=== PATIENT | female | born 1950 | race Caucasian/White ===

== ENCOUNTER 2020-02-26 13:11 | Outpatient (REF) | payer MEDICARE, SELFPAY ==
--- NOTE | 2020-02-26 | MM_ITS ---
EXAMINATION: MM SCREENING DIGITAL BREAST TOMOSYNTHESIS, BILATERAL CLINICAL INFORMATION: Screening. Asymptomatic. The lifetime risk of breast cancer based on the Tyrer-Cuzick Model is 6%. COMPARISON: Mammography: 08/29/2018, 07/25/2017, 06/21/2016 TECHNIQUE: Digital breast tomosynthesis is performed in both the craniocaudal and mediolateral oblique views along with computer-aided detection (CAD). Synthesized 2D images are generated from the tomosynthesis. Additional left MLO view is provided. FINDINGS: There are scattered areas of fibroglandular density (ACR BI-RADS breast composition Category b). There are no significant masses, abnormal calcifications, or other abnormalities. The axilla and skin contours are unremarkable. MM/MM tomosynthesis screening BI IMPRESSION: No significant changes from prior studies. ASSESSMENT: BI-RADS 1: Negative RECOMMENDATION: Routine annual mammography screening. This patient's information was entered into a reminder system with a target due date for their next mammogram.
== END 2020-02-26 13:12 | disposition home or self-care (01) ==
LOC: HO.MAMMO 13:11
PROVIDERS: PCP Nurse Practitioner Family; Visit Provider Nurse Practitioner Family
DX: Z12.31 Encounter for screening mammogram for malignant neoplasm of breast (principal)
CPT/HCPCS: 77063; 77067

== ENCOUNTER 2021-03-08 13:30 | Outpatient (REF) | payer MEDICARE, SELFPAY ==
--- NOTE | ~2021-03-08 | MM_ITS ---
EXAMINATION: MM SCREENING DIGITAL BREAST TOMOSYNTHESIS, BILATERAL CLINICAL INFORMATION: Screening. Asymptomatic. The lifetime risk of breast cancer based on the Tyrer-Cuzick Model is 6%. COMPARISON: Mammography: 02/26/2020, 08/29/2018, 07/25/2017 TECHNIQUE: Digital breast tomosynthesis is performed in both the craniocaudal and mediolateral oblique views along with computer-aided detection (CAD). Synthesized 2D images are generated from the tomosynthesis. Additional left CC view is provided. FINDINGS: There are scattered areas of fibroglandular density (ACR BI-RADS breast composition Category b). There are no significant masses, abnormal calcifications, or other abnormalities. Parenchymal pattern is similar to prior studies. No developing density. No significant changes. MM/MM tomosynthesis screening BI IMPRESSION: No mammographic evidence of malignancy. ASSESSMENT: BI-RADS 1: Negative RECOMMENDATION: Routine annual mammography screening. This patient's information was entered into a reminder system with a target due date for their next mammogram.
--- NOTE | ~2021-03-08 | MM_ITS ---
EXAMINATION: BONE DENSITOMETRY CLINICAL INDICATION: Osteopenia. COMPARISON: Previous BD dated 08/29/2018 and baseline BD dated 04/04/2005. TECHNIQUE: Using a [employer] DXA System (software version: 13.1) manufactured by [employer], dual-energy x-ray absorptiometry was performed of the lumbar spine and left hip. The images are of good technical quality. Summary results are attached. FINDINGS: AP SPINE L1-L4: Current: BMD 1.002 g/cm2, Z-score -0.1, T-score -1.5, osteopenia, 2.3% increase from previous, 3.4% increase from baseline (<5% change is not significant). Prior: BMD 0.979 g/cm2. Baseline: BMD 0.969 g/cm2. LEFT FEMUR, NECK: Current: BMD 0.708 g/cm2, Z-score -0.8, T-score -2.4, osteopenia. Prior: BMD 0.729 g/cm2. Baseline: BMD 0.834 g/cm2. LEFT FEMUR, TOTAL: Current: BMD 0.936 g/cm2, Z-score 0.7, T-score -0.6, normal, 3.7% decrease from previous, 4.9% decrease from baseline (<5% change is not significant). Prior: BMD 0.972 g/cm2. Baseline: BMD 0.984 g/cm2. IDENTIFIED RISK FACTORS: Height loss, menopause, bilateral oophorectomy. HISTORY OF FRACTURE: None listed. MEDICATIONS: Calcium supplements or multivitamin, vitamin D. MM/XR DEXA axial skeleton IMPRESSION: 1. DIAGNOSIS: Osteopenia based on the lowest T-score value of -2.4 in the femoral neck applying World Health Organization criteria. 2. 10-YEAR FRACTURE RISK PREDICTION, FRAX: Major osteoporotic fracture (clinical spine, forearm, hip or shoulder) 14.0%. Hip fracture 3.5%. 3. Treatment Recommendations: NOF guidelines recommend consideration for treatment in postmenopausal women and men age 50 and older presenting with the following: -A hip or vertebral (clinical or morphometric) fracture. -T-score less than or equal to -2.5 at the femoral neck or spine after appropriate evaluation to exclude secondary causes. -Low bone mass at the hip or spine and a 10-year fracture probability by FRAX of greater than or equal to 3% for hip fracture or greater than or equal to 20% for major osteoporotic fracture based on the [place] adapted WHO algorithm. 4. Other Recommendations: All treatment decisions require clinical judgment and consideration of individual patient factors, including patient preferences, comorbidities, previous drug use, risk factors not captured in the FRAX model (e.g. frailty, falls, vitamin D deficiency, increased bone turnover, interval significant decline in bone density) and possible under or overestimation of fracture risk by FRAX. Additional medical evaluation for secondary cause of low bone mineral density may be appropriate. FUTURE SCAN RECOMMENDATION: People with diagnosed cases of osteoporosis or at high risk for fracture should have regular bone mineral density tests. For patients eligible for Medicare, routine testing is allowed once every 2 years. The testing frequency can be increased to one year for patients who have rapidly progressing disease, those who are receiving or discontinuing medical therapy to restore bone mass, or have additional risk factors.
== END 2021-03-08 13:31 | disposition home or self-care (01) ==
LOC: HO.MAMMO 13:30
PROVIDERS: Visit Provider Nurse Practitioner Family
DX: Z12.31 Encounter for screening mammogram for malignant neoplasm of breast (principal); Z13.820 Encounter for screening for osteoporosis; Z78.0 Asymptomatic menopausal state; M85.80 Other specified disorders of bone density and structure, unspecified site; Z90.722 Acquired absence of ovaries, bilateral; Z79.899 Other long term (current) drug therapy
CPT/HCPCS: 77063; 77067; 77080

== ENCOUNTER 2021-05-11 14:03 | Emergency (ER) | payer MEDICARE, SELFPAY ==
--- NOTE | ~2021-05-11 | CT_ITS ---
EXAMINATION: CT ANGIOGRAM OF THE CHEST WITH AND WITHOUT CONTRAST (CT PULMONARY ANGIOGRAM FOR PE) CLINICAL INFORMATION: Reason for Exam + dimer, sob COMPARISON: None TECHNIQUE: Prior to contrast administration, noncontrast localization images were obtained. Subsequently, multidetector volumetric imaging was performed from the thoracic inlet to below the diaphragms following the administration of 80 mL Omnipaque 350 intravenous contrast. No contrast reaction reported Sagittal, coronal, and MIP oblique sagittal reformatted images were obtained on the CT workstation, uploaded to PACS, and reviewed. This CT examination was performed using dose optimization techniques as appropriate, variously including the following: *Automated exposure control *Adjustment of mA and/or kV according to patient size (this includes techniques or standardized protocols for targeted exams where dose is matched to indication/reason for exam; i.e. extremities or head) *Use of iterative reconstruction technique Total exam dose-length product 324 mGy-cm FINDINGS: QUALITY OF STUDY/CONTRAST BOLUS: Satisfactory. PULMONARY ARTERIES: No central or segmental pulmonary emboli. THORACIC AORTA: No aneurysm or dissection. LUNG: The lungs are well-expanded with right lower lobe consolidation/atelectasis. There is bandlike atelectasis left lung base. Rest of the lungs are clear. There is a soft tissue debris seen in the posterior segment of right lower lobe on axial image 29/5 and sagittal image 71/9. PLEURA: No pleural effusion or pneumothorax. MEDIASTINUM: The heart size is expanded and clear. The central trachea and bronchi are widely patent. There is a small hiatal hernia no abnormal size mediastinal or hilar lymph nodes seen. No evidence of septal bowing or right heart strain. CHEST WALL/AXILLA: No axillary or internal mammary lymphadenopathy. OSSEOUS STRUCTURES: There are degenerative disc changes mid dorsal spine with ventral spondylosis mid dorsal spine. UPPER ABDOMEN: The liver is attenuated without any focal lesion or intrahepatic ductal dilatation. Visualized spleen, pancreas and bilateral adrenal glands are unremarkable. Gallbladder is not visualized. No reflux of contrast into the hepatic veins to suggest elevated right heart pressures. CT/CT angio chest PE protocol IMPRESSION: No evidence of PE. No evidence of aortic dissection or aneurysm. Right lower lobe consolidation/atelectasis and a bandlike atelectasis left lung base. There is moderate soft tissue debris seen in the posterior basal segment right lower lobe. This could be secondary to aspiration. Correlate clinically. Mild thickening GE junction/small hiatal hernia. VTE: negative
--- NOTE | ~2021-05-11 | XR_ITS ---
EXAMINATION: XR CHEST CLINICAL INFORMATION: Shortness of breath COMPARISON: July 23, 2006 TECHNIQUE: PA view of the chest was obtained. FINDINGS: There is some discoid disease seen at both lung bases consistent with scarring or atelectasis. There is also noted to be some hazy density at the left lung base which may be related to airspace disease or small effusion. The cardiopericardial silhouette is mildly enlarged. No evidence of pulmonary edema. No pneumothorax. XR/XR chest 1V IMPRESSION: Bibasilar discoid disease consistent with atelectasis or scarring. Question airspace disease with small effusion left base.
[2021-05-11 15:53] VITALS: BP 137/66; PULSE 88; RESP 18; TEMP 36.7; O2SAT 93; BMI 31.1
[2021-05-11 16:29] LABS: MANUAL DIFF FLAG NO
[2021-05-11 16:32] LABS: Basophils Absolute Auto 0.1 X10*3/uL (0.0-0.2); Basophils Percent Auto 0.7 % (0-2); Eosinophils Absolute Auto 0.2 X10*3/uL (0.0-0.4); Eosinophils Percent Auto 1.9 % (0-4); Hematocrit 38.6 % (37.0-47.0); Hemoglobin 12.7 g/dl (12.0-16.0); Imm Gran Abs Auto 0.03 X10*3/uL (0.00-0.03); Imm Gran Pct Auto 0.3 % (0.0-0.4); Lymphocytes Absolute Auto 2.5 X10*3/uL (1.2-4.9); Lymphocytes Percent Auto 28.4 % (20-40); Mean Corpuscular HGB Conc 32.9 g/dl (31.0-35.0); Mean Corpuscular Volume 85.2 fL (80.0-98.0); Mean Platelet Volume 9.7 fL (9.4-12.3); Monocytes Absolute Auto 0.9 X10*3/uL (0.1-1.2); Monocytes Percent Auto 10.3 % (2-11); Neutrophils Absolute Auto 5.2 x10*3/uL (2.0-8.3); Neutrophils Percent Auto 58.4 % (45-73); Platelet Count 361 X10*3/uL (160-400); Red Blood Count 4.53 X10*6/uL (4.20-5.50); Red Cell Distribution Width 15.1 % (11.0-16.0)
[2021-05-11 16:45] LABS: Anion Gap 15 (12-20); Blood Urea Nitrogen 14 mg/dL (9-16); Calcium 9.7 mg/dL (8.4-10.2); Carbon Dioxide 23 mmol/L (22-29); Chloride 106 mmol/L (96-108); Creatinine Clr Calc Pharmacy 58.2; Estimated Glomerular Filt Rate > 60; Glucose Random 88 mg/dL (60-115); Potassium 3.5 mmol/L (3.3-5.1); Sodium 140 mmol/L (135-145)
[2021-05-11 16:51] LABS: B Type Natriuretic Peptide 28 pg/mL (<100)
--- NOTE | 2021-05-11 18:04 | ED_ITS ---
HPI - Asthma General Chief Complaint: Asthma Stated Complaint: coughing/wheezing/SOB Time Seen by Provider: 05/11/21 18:04 Source: patient Mode of arrival: ambulatory Limitations: no limitations History of Present Illness HPI Narrative: 70-year-old female past medical history significant for asthma, HTN, HLD presmarc ting to the emergency department with shortness of breath, productive cough and wheezing times 1 week. Patient tells me that these symptoms have been lingering over the past week however she now notes that she is coughing up yellow/6 sputum. She tells me she feels short of breath particularly with exertion. She also reports wheezing. She tells me she has tried her inhaler, and treatments at home with little to no relief. She reports subjective fevers and chills however has not taken her temperature. She denies chest pain, nausea, vomiting, abdominal pain, calf pain, leg swelling, weakness, headache, dizziness, lethargy. MD complaint: asthma attack , shortness of breath and wheezing Onset (ago): week(s) (1) Severity: moderate Context: none known Associated symptoms: productive cough Treatments Prior to Arrival: inhaled bronchodilator Related Data Previous Rx's Medication Instructions Recorded albuterol sulfate 90 mcg/actuation 2 inh INHALATION Q4-6H PRN #1 ea 05/11/21 breath activated powder inhaler amoxicillin 875 mg-potassium 1 tab PO BID 7 Days #14 tab 05/11/21 clavulanate 125 mg tablet azithromycin 250 mg tablet See Rx Instructions .ROUTE 05/11/21 .COMPLEX #6 tab prednisone 20 mg tablet 20 mg PO DAILY 5 Days #5 tab 05/11/21 Allergies Allergy/AdvReac Type Severity Reaction Status Date / Time codeine Allergy Intermediate Unconscious Verified 05/11/21 15:53 Review of Systems Review of Systems: Constitutional : No Weight loss, + Fever, + Chills, + Fatigue, + Malaise ENT/Mouth : No sore throat, No Rhinorrhea Eyes: No Eye Pain, No Swelling, No Redness Cardiovascular : No Chest Pain, + SOB, No Dyspnea on Exertion, No Orthopnea, No Edema, No Palpitations Respiratory : + Cough, + Sputum, No Wheezing Gastrointestinal : No Nausea, No Vomiting, No Diarrhea, No Constipation, No abdominal Pain, No Hematochezia, No Melena Genitourinary : No Dysuria, No Urinary Frequency, No Hematuria, Musculoskeletal : No joint pain, No Myalgias, No Joint Swelling Skin : No Skin Lesions, No rash Neuro : No Weakness, No Numbness, No Dizziness, No Headache Psych : No Anxiety/Panic, No Depression All other systems reviewed and are negative Yes all other systems are reviewed and are negative [facility] Past Medical History Attestation statement: The following information was validated with the patient. Source: old records reviewed and nursing notes reviewed Medical History (Updated 05/11/21 @ 20:59 by GRACE Hill) Asthma HLD (hyperlipidemia) HTN (hypertension) Social History Social History Advance Directives: No Advance Directives Information Provided: No Physical Exam Vital Signs: Vital Signs: Last Vital Signs Temp 98 F 05/11/21 18:21 Pulse 93 05/11/21 18:49 Resp 18 05/11/21 18:49 BP 138/80 05/11/21 18:21 Pulse Ox 93 05/11/21 18:21 BMI result Body Mass Index 31.1 Vital signs are stable however patient's O2 saturation noted to be in the lower end. Appearance: Alert.? Oriented X3.? No acute distress.? Head: Normocephalic, atraumatic, no step-offs or deformities Eyes: Pupils equal, round and reactive to light.? ENT: Pharynx normal.? Neck: Normal inspection.? Neck supple.? CVS: Normal heart rate and rhythm.? Pulses normal.? Respiratory: No respiratory distress.? Diminished breath sounds throughout, faint crackles to the right lower lobe. Abdomen: Soft and nontender.? Skin: Skin warm and dry.? Normal skin color.? Normal skin turgor.? Extremities: No lower extremity edema.? No calf ttp, negative patrick b/l. 5/5 strength to bilateral upper and lower extremities Back: No midline tenderness, no C-spine tenderness, full range of motion, no CVA tenderness bilaterally Neuro: Oriented X 3.? No motor deficit.? No sensory deficit. CN 2-12 intact Course Reevaluation(s) Reevaluation #1: CBC within normal limits. Chemistry with no acute electrolyte abnormalities. BNP within normal limits. Unlikely that this is CHF. Chest x-ray significant for bibasilar discoid disease consistent with atelectasis or scarring. And a question airspace disease with small effusion in the left base. Dimer pending. Time: 18:07 Reevaluation #2: D-dimer slightly elevated. CTA ordered to rule out PE. Time: 19:51 Reevaluation #3: Will treat patient for bacterial bronchitis and aspiration pneumonia based off of CTA results. She will be discharged home on antibiotics, steroids and with an inhaler. Advised her to return with new or worsening symptoms outlined he is under discharge. Encouraged PCP follow-up. Time: 19:52 MDM - Asthma MDM Narrative Medical decision making narrative: 1805 70 yo f pmhx asthma presents w/ sob, productive cough, wheezing X1 week PE with diminished breath sounds bilaterally, and faint crackles to the right lower lobe. Regular rate and rhythm. Negative Homans sign. Abdomen soft nontender nondistended. Neuro nonfocal. Vital signs stable however patient's O2 sat noted to be 93%. Plan imaging, labs, D-dimer. Will rule out CHF, PE, pneumonia. Medical Records Attestation: I reviewed the patient's medical records. Lab Data Attestation: I reviewed the patient's lab results. Result diagrams: 05/11/21 16:26 05/11/21 16:26 Labs: Lab Results 05/11/21 05/11/21 05/11/21 Range/Units 16:26 16:26 16:26 WBC 9.0 (4.8-10.8) X10*3/uL RBC 4.53 (4.20-5.50) X10*6/uL Hgb 12.7 (12.0-16.0) g/dl Hct 38.6 (37.0-47.0) % MCV 85.2 (80.0-98.0) fL MCH 28.0 (27.0-33.0) pg MCHC 32.9 (31.0-35.0) g/dl RDW 15.1 (11.0-16.0) % Plt Count 361 (160-400) X10*3/uL MPV 9.7 (9.4-12.3) fL Immature Gran % (Auto) 0.3 (0.0-0.4) % Neut % (Auto) 58.4 (45-73) % Lymph % (Auto) 28.4 (20-40) % Esmeralda % (Auto) 10.3 (2-11) % Eos % (Auto) 1.9 (0-4) % Baso % (Auto) 0.7 (0-2) % Lymph # (Auto) 2.5 (1.2-4.9) X10*3/uL Esmeralda # (Auto) 0.9 (0.1-1.2) X10*3/uL Eos # (Auto) 0.2 (0.0-0.4) X10*3/uL Baso # (Auto) 0.1 (0.0-0.2) X10*3/uL Abs Immat Gran (auto) 0.03 (0.00-0.03) X10*3/uL Absolute Neuts (auto) 5.2 (2.0-8.3) x10*3/uL Absolute Nucleated RBC 0.000 (0.0-0.012) X10*3/uL Nucleated RBC % (auto) 0.0 (0.0-0.2) /100WBC D-Dimer High Sensitivty NG/ML Sodium 140 (135-145) mmol/L Potassium 3.5 (3.3-5.1) mmol/L Chloride 106 (96-108) mmol/L Carbon Dioxide 23 (22-29) mmol/L Anion Gap 15 (12-20) BUN 14 (9-16) mg/dL Creatinine 0.82 (0.5-1.4) mg/dL Estim Creat Clear Calc 58.2 Estimated GFR > 60 Random Glucose 88 (60-115) mg/dL Calcium 9.7 (8.4-10.2) mg/dL B-Natriuretic Peptide 28 (<100) pg/mL COVID-19 ([facility]) (Negative) COVID-19 Clin Com 05/11/21 05/11/21 Range/Units 18:24 18:24 WBC (4.8-10.8) X10*3/uL RBC (4.20-5.50) X10*6/uL Hgb (12.0-16.0) g/dl Hct (37.0-47.0) % MCV (80.0-98.0) fL MCH (27.0-33.0) pg MCHC (31.0-35.0) g/dl RDW (11.0-16.0) % Plt Count (160-400) X10*3/uL MPV (9.4-12.3) fL Immature Gran % (Auto) (0.0-0.4) % Neut % (Auto) (45-73) % Lymph % (Auto) (20-40) % Esmeralda % (Auto) (2-11) % Eos % (Auto) (0-4) % Baso % (Auto) (0-2) % Lymph # (Auto) (1.2-4.9) X10*3/uL Esmeralda # (Auto) (0.1-1.2) X10*3/uL Eos # (Auto) (0.0-0.4) X10*3/uL Baso # (Auto) (0.0-0.2) X10*3/uL Abs Immat Gran (auto) (0.00-0.03) X10*3/uL Absolute Neuts (auto) (2.0-8.3) x10*3/uL Absolute Nucleated RBC (0.0-0.012) X10*3/uL Nucleated RBC % (auto) (0.0-0.2) /100WBC D-Dimer High Sensitivty 241 NG/ML Sodium (135-145) mmol/L Potassium (3.3-5.1) mmol/L Chloride (96-108) mmol/L Carbon Dioxide (22-29) mmol/L Anion Gap (12-20) BUN (9-16) mg/dL Creatinine (0.5-1.4) mg/dL Estim Creat Clear Calc Estimated GFR Random Glucose (60-115) mg/dL Calcium (8.4-10.2) mg/dL B-Natriuretic Peptide (<100) pg/mL COVID-19 ([facility]) Negative (Negative) COVID-19 Clin Com See Note Critical Care Time Critical Care Time Critical Care Time: No Discharge Plan Discharge Clinical Impression: Acute bronchitis, Aspiration pneumonia Patient Disposition: Home, Self-Care Instructions: Acute Bronchitis (ED) Additional Instructions: Take your medications as prescribed. If you were prescribed antibiotics today, it is important that you take your medication to their entirety, do not skip any doses, do not finish them early. Follow-up with your primary care provider this week. Return to the emergency department with new or worsening symptoms. She is fevers, chills, chest pain, shortness of breath, nausea, vomiting, weakness, headache, dizziness, fatigue. In case of emergency call 911 Prescriptions: New azithromycin 250 mg tablet See Rx Instructions .ROUTE .COMPLEX Qty: 6 0RF Rx Instructions: For 250 mg dose pack: take 500 mg today (day 1), then 250 mg for 4 days (days 2-5) prednisone 20 mg tablet 20 mg PO DAILY 5 Days Qty: 5 0RF albuterol sulfate 90 mcg/actuation aerosol powdr breath activated 2 inh inhalation Q4-6H PRN (Reason: shortness of breath) Qty: 1 0RF amoxicillin-pot clavulanate 875-125 mg tablet 1 tab PO BID 7 Days Qty: 14 0RF Referrals: Nani Ling NP [Primary Care Provider] - 2 days Stand Alone Forms: Work/School Release
[2021-05-11 18:21] VITALS: BP 138/80; PULSE 88; RESP 16; TEMP 36.6; O2SAT 93
[2021-05-11 18:46] LABS: COVID-19 Test Negative (Negative)
[2021-05-11] MEDS: Albuterol/Iprat 2.5/0.5MG 3 ML AMPUL.NEB INHALE (18:46)
[2021-05-11 18:49] VITALS: PULSE 93; RESP 18; O2SAT 97
[2021-05-11 18:52] LABS: D Dimer High Sensitivity 241 NG/ML
--- NOTE | 2021-05-11 19:19 | PC.NURSE ---
IV placed by GRACE Cartagena to [facility]. Pt off to CT @ this time.
[2021-05-11] MEDS: iohexoL 350 MG/ML 100 ML INFUS..BTL IV (19:31)
--- NOTE | 2021-05-11 19:32 | PC.NURSE ---
Pt returns from CT at this time.
== END 2021-05-11 21:13 | disposition home or self-care (01) ==
PROVIDERS: Physician Assistant; Emergency Provider Emergency Medicine; PCP Nurse Practitioner Family
DX: J20.9 Acute bronchitis, unspecified (principal); J69.0 Pneumonitis due to inhalation of food and vomit; R06.02 Shortness of breath; Z20.822 Contact with and (suspected) exposure to COVID-19; I10 Essential (primary) hypertension; E78.5 Hyperlipidemia, unspecified; Z79.899 Other long term (current) drug therapy
CPT/HCPCS: 36415; 71045; 71275; 80048; 83880; 85025; 85379; 87635; 94640; 99283; 99284; Q9967

== ENCOUNTER 2021-07-01 18:35 | Emergency (ER) | payer MEDICARE, SELFPAY ==
--- NOTE | ~2021-07-01 | XR_ITS ---
EXAMINATION: XR chest 1V CLINICAL INFORMATION: Dyspnea COMPARISON: None TECHNIQUE: XR chest 1V Tubes and lines: None Lungs and pleura: Redemonstration of mild infiltrate/subsegmental atelectasis at lung bases unchanged. Heart and mediastinum: The mediastinum is within normal limits.. Bones/soft tissue: Skeletal structures included are normal for patient's age. XR/XR chest 1V IMPRESSION: No significant change, mild infiltrate/subsegmental atelectasis at lung bases bilaterally.
--- NOTE | 2021-07-01 18:44 | ECG_ITS ---
Test Reason : WEAKNESS/SOB Blood Pressure : / mmHG Vent. Rate : 098 BPM Atrial Rate : 098 BPM P-R Int : 156 ms QRS Dur : 076 ms QT Int : 356 ms P-R-T Axes : 036 013 025 degrees QTc Int : 454 ms Normal sinus rhythm Nonspecific ST abnormality Abnormal ECG No previous ECGs available Referred By: Generic ED Physician Electronically Signed By:ALBERTO EDGAR MD
[2021-07-01 18:54] VITALS: BP 150/85; PULSE 96; RESP 20; TEMP 36.9; O2SAT 92; BMI 27.6
[2021-07-01 19:06] LABS: MANUAL DIFF FLAG NO
[2021-07-01 19:08] LABS: Basophils Percent Auto 0.4 % (0-2); Eosinophils Absolute Auto 0.2 X10*3/uL (0.0-0.4); Eosinophils Percent Auto 2.3 % (0-4); Hematocrit 40.9 % (37.0-47.0); Hemoglobin 13.2 g/dl (12.0-16.0); Imm Gran Abs Auto 0.04 X10*3/uL (0.00-0.03); Imm Gran Pct Auto 0.4 % (0.0-0.4); Lymphocytes Absolute Auto 2.5 X10*3/uL (1.2-4.9); Lymphocytes Percent Auto 27.3 % (20-40); Mean Corpuscular HGB Conc 32.3 g/dl (31.0-35.0); Mean Corpuscular Hemoglobin 27.8 pg (27.0-33.0); Mean Corpuscular Volume 86.3 fL (80.0-98.0); Mean Platelet Volume 9.2 fL (9.4-12.3); Monocytes Absolute Auto 0.8 X10*3/uL (0.1-1.2); Monocytes Percent Auto 8.5 % (2-11); Neutrophils Absolute Auto 5.6 x10*3/uL (2.0-8.3); Neutrophils Percent Auto 61.1 % (45-73); Platelet Count 365 X10*3/uL (160-400); Red Blood Count 4.74 X10*6/uL (4.20-5.50); Red Cell Distribution Width 14.2 % (11.0-16.0); White Blood Count 9.1 X10*3/uL (4.8-10.8)
[2021-07-01 19:22] LABS: Anion Gap 13 (12-20); Blood Urea Nitrogen 14 mg/dL (9-16); Carbon Dioxide 29 mmol/L (22-29); Chloride 104 mmol/L (96-108); Creatinine Clr Calc Pharmacy 68.7; Estimated Glomerular Filt Rate > 60; Glucose Random 89 mg/dL (60-115); Potassium 3.8 mmol/L (3.3-5.1); Sodium 142 mmol/L (135-145)
[2021-07-01 19:27] LABS: B Type Natriuretic Peptide 20 pg/mL (<100); Troponin-I High Sensitivity < 3.5 ng/L (<3.5-17.0)
--- NOTE | 2021-07-01 20:31 | ED.SOB ---
HPI - SOB/Dyspnea General Chief Complaint: Dyspnea Stated Complaint: Pneumonia sent from urgent care Time Seen by Provider: 07/01/21 20:31 Source: patient Mode of arrival: ambulatory Limitations: no limitations History of Present Illness HPI Narrative: Patient with history of Asthma with frequent pneumonias since last year had just pneumonia in 05/31 been coughing for last 1 week seen at urgent care center chest x-ray showed bilateral infiltrate. Patient denies any fever or chills has mostly dry cough with mucopurulent phlegm sometimes. No chest pain no leg swelling no other family member sick no history of smoking Related Data Previous Rx's Medication Instructions Recorded albuterol sulfate 90 mcg/actuation 2 inh INHALATION Q4-6H PRN #1 ea 05/11/21 breath activated powder inhaler amoxicillin 875 mg-potassium 1 tab PO BID 7 Days #14 tab 05/11/21 clavulanate 125 mg tablet azithromycin 250 mg tablet See Rx Instructions .ROUTE 05/11/21 .COMPLEX #6 tab prednisone 20 mg tablet 20 mg PO DAILY 5 Days #5 tab 05/11/21 benzonatate 200 mg capsule 200 mg PO TID PRN #20 cap 07/01/21 cefpodoxime 200 mg tablet 200 mg PO BID #20 tab 07/01/21 doxycycline hyclate 100 mg tablet 100 mg PO BID #20 tab 07/01/21 prednisone 20 mg tablet 40 mg PO DAILY #10 tab 07/01/21 Allergies Allergy/AdvReac Type Severity Reaction Status Date / Time codeine Allergy Intermediate Unconscious Verified 07/01/21 19:03 Review of Systems Review of Systems: Yes all other systems are reviewed and are negative PMFSH Past Medical History Medical History Asthma HLD (hyperlipidemia) HTN (hypertension) Social History Social History Advance Directives: No Advance Directives Information Provided: No Physical Exam Vital Signs: Vital Signs: Last Vital Signs Temp 98.5 F 07/01/21 18:54 Pulse 92 07/01/21 22:10 Resp 12 07/01/21 22:10 BP 148/68 H 07/01/21 22:10 Pulse Ox 93 07/01/21 22:10 BMI result Body Mass Index 27.6 Appearance: Alert. Oriented X3. No acute distress. Eyes: No pallor or icterus ENT: Pharynx normal. Oral Mucosa moist Neck: Normal inspection. Neck supple. CVS: Normal heart rate and rhythm. Pulses normal. Respiratory: No respiratory distress. Equal air entry bilateral, no wheezing no rhonchi, prolonged expiration, few rales at bases bilateral Abdomen: Soft and nontender. Bowel sounds are present, no mass palpable, no CVA tenderness Skin: Skin warm and dry. Normal skin color. Normal skin turgor. Extremities: No lower extremity edema. No calf tenderness Neuro: Oriented X 3. MDM - SOB/Dyspnea MDM Narrative Medical decision making narrative: Patient's chest x-ray with possible atelectasis versus infiltrate labs normal COVID flu negative discharge patient home on antibiotics and prednisone Lab Data Attestation: I reviewed the patient's lab results. Result diagrams: 07/01/21 18:59 07/01/21 18:59 Labs: Lab Results 07/01/21 07/01/21 07/01/21 Range/Units 18:59 18:59 18:59 WBC 9.1 (4.8-10.8) X10*3/uL RBC 4.74 (4.20-5.50) X10*6/uL Hgb 13.2 (12.0-16.0) g/dl Hct 40.9 (37.0-47.0) % MCV 86.3 (80.0-98.0) fL MCH 27.8 (27.0-33.0) pg MCHC 32.3 (31.0-35.0) g/dl RDW 14.2 (11.0-16.0) % Plt Count 365 (160-400) X10*3/uL MPV 9.2 L (9.4-12.3) fL Immature Gran % (Auto) 0.4 (0.0-0.4) % Neut % (Auto) 61.1 (45-73) % Lymph % (Auto) 27.3 (20-40) % [place] % (Auto) 8.5 (2-11) % Eos % (Auto) 2.3 (0-4) % Baso % (Auto) 0.4 (0-2) % Lymph # (Auto) 2.5 (1.2-4.9) X10*3/uL [place] # (Auto) 0.8 (0.1-1.2) X10*3/uL Eos # (Auto) 0.2 (0.0-0.4) X10*3/uL Baso # (Auto) 0.0 (0.0-0.2) X10*3/uL Abs Immat Gran (auto) 0.04 H (0.00-0.03) X10*3/uL Absolute Neuts (auto) 5.6 (2.0-8.3) x10*3/uL Absolute Nucleated RBC 0.000 (0.0-0.012) X10*3/uL Nucleated RBC % (auto) 0.0 (0.0-0.2) /100WBC Sodium 142 (135-145) mmol/L Potassium 3.8 (3.3-5.1) mmol/L Chloride 104 (96-108) mmol/L Carbon Dioxide 29 (22-29) mmol/L Anion Gap 13 (12-20) BUN 14 (9-16) mg/dL Creatinine 0.79 (0.5-1.4) mg/dL Estim Creat Clear Calc 68.7 Estimated GFR > 60 Random Glucose 89 (60-115) mg/dL Calcium 10.0 (8.4-10.2) mg/dL Troponin I High Sens < 3.5 (<3.5-17.0) ng/L B-Natriuretic Peptide 20 (<100) pg/mL Urine Color Urine Appearance Urine pH (5.0-8.0) Ur Specific [place] (1.005-1.025) Urine Protein (NEG-TRACE) MG/DL Urine Glucose (UA) (NEG) MG/DL Urine Ketones (NEG) MG/DL Urine Blood (NEG) Urine Nitrite (NEG) Ur Leukocyte Esterase (NEG) Urine RBC (0) /HPF Urine WBC (0-4) /HPF Ur Squamous Epith Cells /LPF Urine Bacteria /LPF COVID-19 ([facility]IA) (Negative) COVID-19 Clin Com Influenza Type A ([facility]MON) (Negative) Influenza Type B (RAYMON) (Negative) Influenza A & B Note 07/01/21 07/01/21 07/01/21 Range/Units 20:05 20:05 21:04 WBC (4.8-10.8) X10*3/uL RBC (4.20-5.50) X10*6/uL Hgb (12.0-16.0) g/dl Hct (37.0-47.0) % MCV (80.0-98.0) fL MCH (27.0-33.0) pg MCHC (31.0-35.0) g/dl RDW (11.0-16.0) % Plt Count (160-400) X10*3/uL MPV (9.4-12.3) fL Immature Gran % (Auto) (0.0-0.4) % Neut % (Auto) (45-73) % Lymph % (Auto) (20-40) % [place] % (Auto) (2-11) % Eos % (Auto) (0-4) % Baso % (Auto) (0-2) % Lymph # (Auto) (1.2-4.9) X10*3/uL [place] # (Auto) (0.1-1.2) X10*3/uL Eos # (Auto) (0.0-0.4) X10*3/uL Baso # (Auto) (0.0-0.2) X10*3/uL Abs Immat Gran (auto) (0.00-0.03) X10*3/uL Absolute Neuts (auto) (2.0-8.3) x10*3/uL Absolute Nucleated RBC (0.0-0.012) X10*3/uL Nucleated RBC % (auto) (0.0-0.2) /100WBC Sodium (135-145) mmol/L Potassium (3.3-5.1) mmol/L Chloride (96-108) mmol/L Carbon Dioxide (22-29) mmol/L Anion Gap (12-20) BUN (9-16) mg/dL Creatinine (0.5-1.4) mg/dL Estim Creat Clear Calc Estimated GFR Random Glucose (60-115) mg/dL Calcium (8.4-10.2) mg/dL Troponin I High Sens (<3.5-17.0) ng/L B-Natriuretic Peptide (<100) pg/mL Urine Color YELLOW Urine Appearance CLEAR Urine pH 6.5 (5.0-8.0) Ur Specific [place] 1.010 (1.005-1.025) Urine Protein NEG (NEG-TRACE) MG/DL Urine Glucose (UA) NEG (NEG) MG/DL Urine Ketones NEG (NEG) MG/DL Urine Blood NEG (NEG) Urine Nitrite NEG (NEG) Ur Leukocyte Esterase TRACE H (NEG) Urine RBC 0 (0) /HPF Urine WBC 1-4 (0-4) /HPF Ur Squamous Epith Cells 1+ /LPF Urine Bacteria NONE /LPF COVID-19 (DACIA) Negative (Negative) COVID-19 Clin Com See Note Influenza Type A ([facility]MON) Negative (Negative) Influenza Type B (RAYMON) Negative (Negative) Influenza A & B Note See Note Discharge Plan Discharge Clinical Impression: Bronchitis Patient Disposition: Home, Self-Care Instructions: Acute Bronchitis (ED) Additional Instructions: Take antibiotic as prescribed Prednisone cough pearls as advised Use your albuterol inhaler/nebulizing treatment every 4 hours as needed Report to the ER/PCP if not better Prescriptions: New cefpodoxime 200 mg tablet 200 mg PO BID Qty: 20 0RF Rx Instructions: must administer with a meal/food benzonatate 200 mg capsule 200 mg PO TID PRN (Reason: cough) Qty: 20 0RF prednisone 20 mg tablet 40 mg PO DAILY Qty: 10 0RF doxycycline hyclate 100 mg tablet 100 mg PO BID Qty: 20 0RF No Action azithromycin 250 mg tablet See Rx Instructions .ROUTE .COMPLEX Qty: 6 0RF Rx Instructions: For 250 mg dose pack: take 500 mg today (day 1), then 250 mg for 4 days (days 2-5) prednisone 20 mg tablet 20 mg PO DAILY 5 Days Qty: 5 0RF albuterol sulfate 90 mcg/actuation aerosol powdr breath activated 2 inh inhalation Q4-6H PRN (Reason: shortness of breath) Qty: 1 0RF amoxicillin-pot clavulanate 875-125 mg tablet 1 tab PO BID 7 Days Qty: 14 0RF
[2021-07-01 20:36] LABS: COVID-19 Test Negative (Negative); IDNOW Serial# 55D5AD1C
[2021-07-01 20:41] LABS: IDNOW Serial# 08D9AD1C; Influenza A Negative (Negative); Influenza B2 Negative (Negative)
[2021-07-01] MEDS: Albuterol/Iprat 2.5/0.5MG 3 ML AMPUL.NEB INHALE (20:56)
[2021-07-01 20:58] VITALS: PULSE 100; RESP 16; O2SAT 94
[2021-07-01 21:14] LABS: Appearance Urine CLEAR; Color Urine YELLOW; Glucose Urine UA NEG (NEG); Leukocyte Esterase Urine TRACE (NEG); Nitrite Urine NEG (NEG); PH 6.5 (5.0-8.0); Urine Blood NEG (NEG); Urine Ketones NEG (NEG); Urine Protein NEG (NEG-TRACE)
[2021-07-01 21:19] LABS: RBC Urine 0 /HPF (0); Squamous Epithelial Cell Urine 1+ /LPF
[2021-07-01 21:20] VITALS: BP 112/48; PULSE 95; RESP 16; O2SAT 93
[2021-07-01] MEDS: cefTRIAXone sodium 1 GM in 0.9 % Sodium Chloride 50 ML IV (21:20)
[2021-07-01 22:10] VITALS: BP 148/68; PULSE 92; RESP 12; O2SAT 93
[2021-07-01] MEDS: Benzonatate 100 MG CAPSULE 200 MG PO (22:56)
[2021-07-01] MEDS: dexAMETHasone sod phosphate 10 MG/ML VIAL IVPUSH (22:56)
== END 2021-07-01 23:06 | disposition home or self-care (01) ==
PROVIDERS: Emergency Provider Internal Medicine; PCP Nurse Practitioner Family
DX: J40 Bronchitis, not specified as acute or chronic (principal); R06.02 Shortness of breath; Z20.822 Contact with and (suspected) exposure to COVID-19; Z79.899 Other long term (current) drug therapy
CPT/HCPCS: 36415; 71045; 80048; 81001; 83880; 84484; 85025; 87040; 87502; 87635; 93005; 94640; 96365; 96375; 99284; J0696; J1100

== ENCOUNTER 2021-09-08 09:20 | Emergency (ER) | payer MEDICARE, SELFPAY ==
--- NOTE | ~2021-09-08 | XR_ITS ---
EXAMINATION: XR CHEST CLINICAL INFORMATION: Difficulty breathing. COMPARISON: 07/01/2021 chest radiograph. TECHNIQUE: 2 views of the chest were obtained. FINDINGS: Interval increase in bibasilar linear opacities. The upper lung nur are clear. The heart and mediastinal structures are unremarkable. XR/XR chest 2V IMPRESSION: Increased bibasilar linear opacities suggesting increased atelectasis and/or infiltrates.
[2021-09-08 09:24] VITALS: BP 164/78; PULSE 102; RESP 14; TEMP 36.7; O2SAT 95; BMI 30.7
[2021-09-08 09:42] LABS: MANUAL DIFF FLAG NO
[2021-09-08 09:51] LABS: Basophils Absolute Auto 0.1 X10*3/uL (0.0-0.2); Basophils Percent Auto 0.5 % (0-2); Eosinophils Absolute Auto 0.3 X10*3/uL (0.0-0.4); Eosinophils Percent Auto 2.7 % (0-4); Hematocrit 37.8 % (37.0-47.0); Hemoglobin 12.6 g/dl (12.0-16.0); Imm Gran Abs Auto 0.03 X10*3/uL (0.00-0.03); Imm Gran Pct Auto 0.3 % (0.0-0.4); Lymphocytes Absolute Auto 1.9 X10*3/uL (1.2-4.9); Lymphocytes Percent Auto 18.8 % (20-40); Mean Corpuscular HGB Conc 33.3 g/dl (31.0-35.0); Mean Corpuscular Hemoglobin 29.1 pg (27.0-33.0); Mean Corpuscular Volume 87.3 fL (80.0-98.0); Mean Platelet Volume 9.6 fL (9.4-12.3); Monocytes Absolute Auto 0.8 X10*3/uL (0.1-1.2); Monocytes Percent Auto 7.8 % (2-11); Neutrophils Absolute Auto 6.9 x10*3/uL (2.0-8.3); Neutrophils Percent Auto 69.9 % (45-73); Platelet Count 339 X10*3/uL (160-400); Red Blood Count 4.33 X10*6/uL (4.20-5.50); Red Cell Distribution Width 13.5 % (11.0-16.0); White Blood Count 9.9 X10*3/uL (4.8-10.8)
[2021-09-08 09:58] LABS: COVID-19 Test Negative (Negative); IDNOW Serial# 16C4AD1C
[2021-09-08 09:59] LABS: Anion Gap 14 (12-20); Blood Urea Nitrogen 12 mg/dL (9-16); Calcium 9.7 mg/dL (8.4-10.2); Carbon Dioxide 27 mmol/L (22-29); Chloride 103 mmol/L (96-108); Creatinine Clr Calc Pharmacy 52.8; Estimated Glomerular Filt Rate > 60; Glucose Random 151 mg/dL (60-115); Potassium 3.5 mmol/L (3.3-5.1); Sodium 140 mmol/L (135-145)
[2021-09-08 10:06] LABS: B Type Natriuretic Peptide 22 pg/mL (<100)
[2021-09-08 13:42] VITALS: BP 143/80; PULSE 86; RESP 20; O2SAT 93
--- NOTE | 2021-09-08 14:00 | ED_ITS ---
HPI - SOB/Dyspnea General Chief Complaint: Dyspnea Stated Complaint: coughing wheezing Time Seen by Provider: 09/08/21 13:43 Source: patient Mode of arrival: ambulatory Limitations: no limitations History of Present Illness HPI Narrative: 71-year-old female with a history of asthma, hypertension, hyperlipidemia, re current pneumonia here with complaints of cough x 1 month with shortness of breath on exertion over last 24 hrs. Cough productive with yellow sputum. No fevers, chills, chest pain, leg swelling or leg pain. Patient is followed by plant and instrument engineer in [facility]. Related Data Previous Rx's Medication Instructions Recorded albuterol sulfate 90 mcg/actuation 2 inh inhalation Q4-6H PRN 05/11/21 breath activated powder inhaler shortness of breath #1 ea amoxicillin 875 mg-potassium 1 tab PO BID 7 days #14 tabs 05/11/21 clavulanate 125 mg tablet azithromycin 250 mg tablet See Rx Instructions PO .COMPLEX #6 05/11/21 tabs prednisone 20 mg tablet 20 mg PO DAILY 5 days #5 tabs 05/11/21 benzonatate 200 mg capsule 200 mg PO TID PRN cough #20 caps 07/01/21 cefpodoxime 200 mg tablet 200 mg PO BID #20 tabs 07/01/21 doxycycline hyclate 100 mg tablet 100 mg PO BID #20 tabs 07/01/21 prednisone 20 mg tablet 40 mg PO DAILY #10 tabs 07/01/21 benzonatate 200 mg capsule 200 mg PO TID PRN cough #20 caps 09/08/21 doxycycline monohydrate 100 mg 100 mg PO BID #20 tabs 09/08/21 tablet prednisone 20 mg tablet 40 mg PO DAILY #10 tabs 09/08/21 Allergies Allergy/AdvReac Type Severity Reaction Status Date / Time codeine Allergy Intermediate Unconscious Verified 07/01/21 19:03 Review of Systems Review of Systems: Yes all other systems are reviewed and are negative Constitutional: Constitutional: Reports no additional constitutional complai nts, Denies body ache(s), Denies chills, Denies fever(s), Denies headache(s) and Denies weakness Eyes: Eyes: Reports no additional eye complaints and Denies change in vision ENT: Reports system reviewed and no additional complaints, except as documented, Denies dizziness, Denies headache(s), Denies nasal congestion, Denies nasal discharge and Denies neck pain Cardiovascular: Cardiovascular: Reports no additional cardiovascular complaints, Denies chest pain, Denies leg edema and Reports dyspnea Respiratory: Respiratory: Reports no additional respiratory complaints, Reports cough and Reports dyspnea Gastrointestinal: Gastrointestinal: Reports no additional gastrointestinal complaints, Denies abdominal pain, Denies diarrhea, Denies nausea and Denies vomiting Genitourinary: Genitourinary: Reports no additional female genitourinary complaints and Denies urinary incontinence Musculoskeletal: Musculoskeletal: Reports no additional musculoskeletal complaints, Denies back pain, Denies arthralgias, Denies joint swelling, Denies neck pain, Denies numbness and Denies tingling Integumentary/Breasts: Skin/Breast: Reports system reviewed and no additional complaints, except as docu and Denies rash Neurologic: Reports system reviewed and no additional complaints, except as documented, Denies Abnormal speech present, Denies dizziness, Denies headache(s), Denies numbness, Denies tingling and Denies weakness PMFSH Past Medical History Attestation statement: The following information was validated with the patient. Source: old records reviewed and nursing notes reviewed Medical History Asthma HLD (hyperlipidemia) HTN (hypertension) Social History Social History Advance Directives: Yes Advance Directives Information Provided: Yes Advance Directives on File: No Physical Exam Vital Signs: Vital Signs: Last Vital Signs Temp 98.1 F 09/08/21 09:24 Pulse 86 09/08/21 13:42 Resp 20 09/08/21 13:42 BP 143/80 H 09/08/21 13:42 Pulse Ox 93 09/08/21 13:42 O2 Del Method 09/08/21 13:42 BMI result Body Mass Index 30.7 Const: General: cooperative, healthy appearing, comfortable and no acute distress Orientation/consciousness: patient oriented x3 Limitations: no limitations HEENT: Head: Yes normal to inspection Ears: hearing grossly normal bilaterally General nose exam: Normal external nose present Face and sinus: Yes normal facial exam Mouth: Normal oral and palatal mucosa present Throat: Yes posterior oropharynx normal Eyes: General: appearance normal, both eyes and all related structures Pupils: Equal, round and reactive pupils present Neck: Neck: Yes normal visual inspection Chest: Chest palpation & inspection: normal inspection of the chest Resp: Other: Diminished breath sounds bilaterally. Effort & Inspection: normal respiratory effort Cardio: Rate: regular rate Rhythm: regular rhythm Peripheral pulses: Peripheral pulses 2+ throughout GI: Inspection: Yes normal to inspection Palpation (GI): Soft to palpation and nontender Auscultation: normal bowel sounds Back/Spine/Pelvis: Thoracic/Lumbar Spine: thoracic and lumbar spine normal to inspection Skin: General skin exam: no rashes or lesions noted Neuro: General: patient oriented x3, no focal motor deficits and normal sensation to monofilament Cranial nerves: Yes Equal, round and reactive pupils present Cognition (Neuro): normal cognition Speech: No Abnormal speech present Gait exam (Neuro): Normal gait present Motor exam (neuro): 5/5 motor strength present throughout Extrem: General: Yes normal to inspection, Yes no pedal edema and Yes no calf tenderness Course Reevaluation(s) Reevaluation #1: Chest x-ray shows bilateral lower lobe infiltrates. COVID screen is negative. Labs are unremarkable. Will obtain ambulatory pulse oximeter. Due to recurrent pneumonia will check sputum culture Time: 14:00 Reevaluation #2: Patient ambulated with pulse oximeter 90-92%. No tachypnea. Time: 14:15 Reevaluation #3: Unable to provide sputum culture. Patient to be discharged home with course of antibiotics, prednsone, prn cough suppressant. Reviewed worrisome signs/symptoms with patient and when to seek additional care. Comfortable with discharge home. Time: 14:45 MDM - SOB/Dyspnea MDM Narrative Medical decision making narrative: 71-year-old female with a history of asthma, high blood pressure, high cholesterol, recurrent pneumonia here with cough over the last 1 month now that is productive with yellow sputum and some shortness of breath on exertion. Patient has a pulse oximeter at home and tells me her numbers have been around 92%. No chest pain, leg swelling, leg pain, fevers, chills. Overall vitals are stable. Room air saturation 93%. Will obtain labs, CXR, COVID screen -consider pneumonia, asthma exacerbation, bronchitis. Low concern for PE with no clinical findings concerning for DVT, no tachypnea, no reports of chest pain. Medical Records Attestation: I reviewed the patient's medical records. Lab Data Attestation: I reviewed the patient's lab results. Result diagrams: 09/08/21 09:32 09/08/21 09:32 Labs: Lab Results 09/08/21 09/08/21 09/08/21 Range/Units 09:32 09:32 09:32 WBC 9.9 (4.8-10.8) X10*3/uL RBC 4.33 (4.20-5.50) X10*6/uL Hgb 12.6 (12.0-16.0) g/dl Hct 37.8 (37.0-47.0) % MCV 87.3 (80.0-98.0) fL MCH 29.1 (27.0-33.0) pg MCHC 33.3 (31.0-35.0) g/dl RDW 13.5 (11.0-16.0) % Plt Count 339 (160-400) X10*3/uL MPV 9.6 (9.4-12.3) fL Immature Gran % (Auto) 0.3 (0.0-0.4) % Neut % (Auto) 69.9 (45-73) % Lymph % (Auto) 18.8 L (20-40) % [place] % (Auto) 7.8 (2-11) % Eos % (Auto) 2.7 (0-4) % Baso % (Auto) 0.5 (0-2) % Lymph # (Auto) 1.9 (1.2-4.9) X10*3/uL [place] # (Auto) 0.8 (0.1-1.2) X10*3/uL Eos # (Auto) 0.3 (0.0-0.4) X10*3/uL Baso # (Auto) 0.1 (0.0-0.2) X10*3/uL Abs Immat Gran (auto) 0.03 (0.00-0.03) X10*3/uL Absolute Neuts (auto) 6.9 (2.0-8.3) x10*3/uL Absolute Nucleated RBC 0.000 (0.0-0.012) X10*3/uL Nucleated RBC % (auto) 0.0 (0.0-0.2) /100WBC Sodium 140 (135-145) mmol/L Potassium 3.5 (3.3-5.1) mmol/L Chloride 103 (96-108) mmol/L Carbon Dioxide 27 (22-29) mmol/L Anion Gap 14 (12-20) BUN 12 (9-16) mg/dL Creatinine 0.92 (0.5-1.4) mg/dL Estim Creat Clear Calc 52.8 Estimated GFR > 60 Random Glucose 151 H (60-115) mg/dL Calcium 9.7 (8.4-10.2) mg/dL B-Natriuretic Peptide 22 (<100) pg/mL COVID-19 (DACIA) (Negative) COVID-19 Clin Com 09/08/21 Range/Units 09:32 WBC (4.8-10.8) X10*3/uL RBC (4.20-5.50) X10*6/uL Hgb (12.0-16.0) g/dl Hct (37.0-47.0) % MCV (80.0-98.0) fL MCH (27.0-33.0) pg MCHC (31.0-35.0) g/dl RDW (11.0-16.0) % Plt Count (160-400) X10*3/uL MPV (9.4-12.3) fL Immature Gran % (Auto) (0.0-0.4) % Neut % (Auto) (45-73) % Lymph % (Auto) (20-40) % [place] % (Auto) (2-11) % Eos % (Auto) (0-4) % Baso % (Auto) (0-2) % Lymph # (Auto) (1.2-4.9) X10*3/uL [place] # (Auto) (0.1-1.2) X10*3/uL Eos # (Auto) (0.0-0.4) X10*3/uL Baso # (Auto) (0.0-0.2) X10*3/uL Abs Immat Gran (auto) (0.00-0.03) X10*3/uL Absolute Neuts (auto) (2.0-8.3) x10*3/uL Absolute Nucleated RBC (0.0-0.012) X10*3/uL Nucleated RBC % (auto) (0.0-0.2) /100WBC Sodium (135-145) mmol/L Potassium (3.3-5.1) mmol/L Chloride (96-108) mmol/L Carbon Dioxide (22-29) mmol/L Anion Gap (12-20) BUN (9-16) mg/dL Creatinine (0.5-1.4) mg/dL Estim Creat Clear Calc Estimated GFR Random Glucose (60-115) mg/dL Calcium (8.4-10.2) mg/dL B-Natriuretic Peptide (<100) pg/mL COVID-19 (DACIA) Negative (Negative) COVID-19 Clin Com See Note Imaging Data Chest x-ray: Attestation: I personally reviewed and interpreted this imaging study as follows: Radiologist's impression: [address] [address] XRay Report Signed Patient: Deanne Sosa MR#: [id number] : 1950 Acct:[id number] Age/Sex: 71 / F ADM Date: 09/08/21 Loc: .ED Attending Dr: Ordering Physician: Generic ED Physician Date of Service: 09/08/21 Procedure(s): XR chest 2V Accession Number(s): [id number] cc: Generic ED Physician~ EXAMINATION: XR CHEST CLINICAL INFORMATION: Difficulty breathing. COMPARISON: 07/01/2021 chest radiograph. TECHNIQUE: 2 views of the chest were obtained. FINDINGS: Interval increase in bibasilar linear opacities. The upper lung nur are clear. The heart and mediastinal structures are unremarkable. XR/XR chest 2V IMPRESSION: Increased bibasilar linear opacities suggesting increased atelectasis and/or infiltrates. Discharge Plan Discharge Clinical Impression: Community acquired pneumonia Patient Disposition: Home, Self-Care Instructions: Community Acquired Pneumonia (ED) Additional Instructions: Return for increasing shortness of breath, fever greater than 100.4, chest pain Monitor your oxygen saturations at home. Return for levels less than 90% Follow-up with your plant and instrument engineer outpatient Prescriptions: New doxycycline monohydrate 100 mg tablet 100 mg PO BID Qty: 20 0RF prednisone 20 mg tablet 40 mg PO DAILY Qty: 10 0RF benzonatate 200 mg capsule 200 mg PO TID PRN (Reason: cough) Qty: 20 0RF No Action azithromycin 250 mg tablet See Rx Instructions .ROUTE .COMPLEX Qty: 6 0RF Rx Instructions: For 250 mg dose pack: take 500 mg today (day 1), then 250 mg for 4 days (days 2-5) prednisone 20 mg tablet 20 mg PO DAILY 5 Days Qty: 5 0RF albuterol sulfate 90 mcg/actuation aerosol powdr breath activated 2 inh inhalation Q4-6H PRN (Reason: shortness of breath) Qty: 1 0RF amoxicillin-pot clavulanate 875-125 mg tablet 1 tab PO BID 7 Days Qty: 14 0RF cefpodoxime 200 mg tablet 200 mg PO BID Qty: 20 0RF Rx Instructions: must administer with a meal/food benzonatate 200 mg capsule 200 mg PO TID PRN (Reason: cough) Qty: 20 0RF prednisone 20 mg tablet 40 mg PO DAILY Qty: 10 0RF doxycycline hyclate 100 mg tablet 100 mg PO BID Qty: 20 0RF Referrals: Nani Ling NP [Primary Care Provider] - 1 week (as needed) Interventions: ED Discharge Assessment Last Done: 09/08/21 14:57 Discharge Date/Time: 09/08/21 14:57
== END 2021-09-08 14:57 | disposition home or self-care (01) ==
PROVIDERS: Emergency Provider Emergency Medicine; PCP Nurse Practitioner Family
DX: J18.9 Pneumonia, unspecified organism (principal); R06.02 Shortness of breath; Z20.822 Contact with and (suspected) exposure to COVID-19; I10 Essential (primary) hypertension; E78.5 Hyperlipidemia, unspecified; Z87.01 Personal history of pneumonia (recurrent)
CPT/HCPCS: 36415; 71046; 80048; 83880; 85025; 87635; 99283

== ENCOUNTER 2022-03-09 13:53 | Outpatient (REF) | payer MEDICARE, SELFPAY ==
--- NOTE | ~2022-03-09 | MM_ITS ---
EXAMINATION: MM SCREENING DIGITAL BREAST TOMOSYNTHESIS, BILATERAL CLINICAL INFORMATION: Screening. Asymptomatic. The lifetime risk of breast cancer based on the Tyrer-Cuzick Model is 5.0%. COMPARISON: Mammography: March 08, 2021 and studies dating back to May 21, 2015 TECHNIQUE: Digital breast tomosynthesis is performed in both the craniocaudal and mediolateral oblique views along with computer-aided detection (CAD). Synthesized 2D images are generated from the tomosynthesis. FINDINGS: There are scattered areas of fibroglandular density (ACR BI-RADS breast composition Category b). There are no significant masses, abnormal calcifications, or other abnormalities. MM/MM tomosynthesis screening BI IMPRESSION: No significant changes from prior exam. ASSESSMENT: BI-RADS 1: Negative RECOMMENDATION: Routine annual mammography screening. This patient's information was entered into a reminder system with a target due date for their next mammogram.
== END 2022-03-09 13:54 | disposition home or self-care (01) ==
LOC: HO.MAMMO 13:53
PROVIDERS: Visit Provider Nurse Practitioner Family
DX: Z12.31 Encounter for screening mammogram for malignant neoplasm of breast (principal)
CPT/HCPCS: 77063; 77067

== ENCOUNTER 2022-03-17 10:15 | Outpatient (REF) | payer MEDICARE, SELFPAY ==
[2022-03-17 10:32] LABS: MANUAL DIFF FLAG NO
[2022-03-17 10:57] LABS: Basophils Absolute Auto 0.1 X10*3/uL (0.0-0.2); Basophils Percent Auto 0.9 % (0-2); Eosinophils Absolute Auto 0.2 X10*3/uL (0.0-0.4); Eosinophils Percent Auto 3.5 % (0-4); Hemoglobin 12.3 g/dl (12.0-16.0); Imm Gran Abs Auto 0.03 X10*3/uL (0.00-0.03); Imm Gran Pct Auto 0.4 % (0.0-0.4); Lymphocytes Absolute Auto 1.8 X10*3/uL (1.2-4.9); Lymphocytes Percent Auto 26.1 % (20-40); Mean Corpuscular HGB Conc 31.5 g/dl (31.0-35.0); Mean Corpuscular Hemoglobin 25.7 pg (27.0-33.0); Mean Corpuscular Volume 81.4 fL (80.0-98.0); Mean Platelet Volume 10.1 fL (9.4-12.3); Monocytes Absolute Auto 0.8 X10*3/uL (0.1-1.2); Monocytes Percent Auto 10.9 % (2-11); Neutrophils Percent Auto 58.2 % (45-73); Platelet Count 389 X10*3/uL (160-400); Red Blood Count 4.79 X10*6/uL (4.20-5.50); Red Cell Distribution Width 14.8 % (11.0-16.0); White Blood Count 6.9 X10*3/uL (4.8-10.8)
[2022-03-17 11:39] LABS: Prothrombin Time 11.5 SEC (10.0-13.1)
[2022-03-17 11:52] LABS: Alanine Aminotransferase 118 U/L (0-31); Albumin Level 4.6 g/dL (3.5-5.0); Alkaline Phosphatase 111 U/L (39-117); Aspartate Amino Transferase 118 U/L (5-31); Bilirubin Direct 0.2 mg/dL (0.0-0.5); Bilirubin Total 0.6 mg/dL (0.0-1.0); Iron 53 mcg/dL (30-160); Percent Iron Saturation 14 % (15-50); Total Iron Binding Capacity 379 mcg/dL (228-428); Total Protein 7.2 g/dL (6.5-8.0); Unsaturated Iron Binding 326 ug/dL
[2022-03-17 11:57] LABS: Ferritin 37 ng/mL (10-250); HBS Num1 0.32 mIU/mL (0-7.99); HBc Num1 0.07 S/CO (0.00-0.79); HBsAGNum1 0.35 S/CO (0.00-0.99); Hepatitis A Antibody IgM 0.18 Index (0-0.79); Hepatitis B Core Antibody Nonreactive (Nonreactive); Hepatitis B Surface Antigen Negative (Negative); ~HepC Num1 0.08 S/CO (0.00-0.79); ~Hepatitis A Antibody IgM Nonreactive (Nonreactive); ~Hepatitis B Surface Antibody NONREACTIVE (Nonreactive); ~Hepatitis C Antibody Nonreactive (Nonreactive)
[2022-03-20 14:39] LABS: Anti Nuclear Antibody Screen NEGATIVE (NEGATIVE)
[2022-03-21 13:04] LABS: Mitochondrial Antibodies NEGATIVE (NEGATIVE)
[2022-03-22 00:04] LABS: FIB-ALT 107 U/L (6-29); FIB-Alpha-2-Macroglobulin 273 mg/dL (106-279); FIB-Apolipoprotein A1 132 mg/dL (101-198); FIB-GGT 117 U/L (3-65); FIB-Haptoglobin 175 mg/dL (43-212); FIB-Total Bilirubin 0.5 mg/dL (0.2-1.2); Liver Fibrosis Score 0.57; Liver Fibrosis Stage F2; Nec Inflam Act Grade A3; Nec Inflam Act Score 0.69
[2022-03-23 23:18] LABS: Smooth Muscle Antibody <20 U (<20)
== END 2022-03-17 10:16 | disposition home or self-care (01) ==
LOC: HO.LAB 10:15
PROVIDERS: PCP Nurse Practitioner Family; Visit Provider Internal Medicine Gastroenterology
DX: Z01.818 Encounter for other preprocedural examination (principal); R79.89 Other specified abnormal findings of blood chemistry
CPT/HCPCS: 36415; 80076; 81596; 82728; 83540; 85025; 85610; 86015; 86038; 86039; 86255; 86256; 86704; 86706; 86709; 86803; 87340

== ENCOUNTER 2022-08-31 08:50 | Outpatient (REF) | payer MEDICARE, SELFPAY ==
--- NOTE | ~2022-08-31 | US_ITS ---
EXAMINATION: US ABDOMEN COMPLETE CLINICAL INFORMATION: Fatty change of liver. COMPARISON: 11/29/2011 TECHNIQUE: Real-time imaging of the abdominal viscera. FINDINGS: PANCREAS: Normal. ABDOMINAL AORTA: The proximal, mid, and distal segments are normal in caliber. INFERIOR VENA CAVA: Visualized portions are normal. LIVER: The liver is normal in size is increased echogenicity of liver due to hepatic steatosis. Right lobe of the liver measures 16.0 cm.. The liver contour is normal No focal hepatic lesion. There is no intrahepatic biliary duct dilatation seen. GALLBLADDER: Normal. The gallbladder is physiologically distended without evidence of stones, sludge, polyps, wall thickening or pericholecystic fluid. COMMON BILE DUCT: Normal in caliber measuring 0.5 cm in diameter. RIGHT KIDNEY: There is lower pole 0.5 x 0.4 x 0.4 cm cyst and calcification in the cortex, measured 0.3 x 0.2 x 0.2 cm. No hydronephrosis The kidney measures 10.4 cm in maximum dimension. LEFT KIDNEY: There is lower pole 0.2 x 0.2 x 0.3 cm nonobstructing calculus seen. No hydronephrosis or focal parenchymal lesions. The kidney measures 10.4 cm in maximum dimension. SPLEEN: Normal. The spleen measures 10.2 cm in maximum dimension. FREE FLUID: None. US/US abdomen complete IMPRESSION: 1. Hepatic steatosis. 2. Small cyst and calcification in the cortex of the right kidney. 3. Nonobstructing calculus in the lower pole of the left kidney.
== END 2022-08-31 08:51 | disposition home or self-care (01) ==
LOC: HO.US 08:50
PROVIDERS: PCP Nurse Practitioner Family; Visit Provider Internal Medicine Gastroenterology
DX: K76.0 Fatty (change of) liver, not elsewhere classified (principal)
CPT/HCPCS: 76700

== ENCOUNTER 2022-09-11 14:12 | Emergency (ER) | payer MEDICARE, SELFPAY ==
[2022-09-11 14:32] VITALS: BP 142/73; PULSE 90; RESP 18; TEMP 36.8; O2SAT 96; BMI 28.7
--- NOTE | 2022-09-11 14:35 | ED.ASTHMA ---
HPI - Asthma General Chief Complaint: Asthma Stated Complaint: Diff breathing History of Present Illness HPI Narrative: LEft being seeing ED provider Related Data Previous Rx's Medication Instructions Recorded albuterol sulfate 90 mcg/actuation 2 inh inhalation Q4-6H PRN 05/11/21 breath activated powder inhaler shortness of breath #1 ea amoxicillin 875 mg-potassium 1 tab PO BID 7 days #14 tabs 05/11/21 clavulanate 125 mg tablet azithromycin 250 mg tablet See Rx Instructions PO .COMPLEX #6 05/11/21 tabs prednisone 20 mg tablet 20 mg PO DAILY 5 days #5 tabs 05/11/21 benzonatate 200 mg capsule 200 mg PO TID PRN cough #20 caps 07/01/21 cefpodoxime 200 mg tablet 200 mg PO BID #20 tabs 07/01/21 doxycycline hyclate 100 mg tablet 100 mg PO BID #20 tabs 07/01/21 prednisone 20 mg tablet 40 mg PO DAILY #10 tabs 07/01/21 benzonatate 200 mg capsule 200 mg PO TID PRN cough #20 caps 09/08/21 doxycycline monohydrate 100 mg 100 mg PO BID #20 tabs 09/08/21 tablet prednisone 20 mg tablet 40 mg PO DAILY #10 tabs 09/08/21 albuterol sulfate 1.25 mg/3 mL 1.25 mg (3 mL) inhalation QID PRN 09/13/22 solution for nebulization shortness of breath or wheezing #90 mL doxycycline hyclate 100 mg tablet 100 mg PO BID 7 days #14 tabs 09/13/22 prednisone 20 mg tablet 20 mg PO DAILY 7 days #7 tabs 09/13/22 Allergies Allergy/AdvReac Type Severity Reaction Status Date / Time codeine Allergy Intermediate Unconscious Verified 09/13/22 09:08 lisinopril Allergy Difficulty Verified 09/13/22 09:08 Breathing PMFSH Past Medical History Medical History Asthma HLD (hyperlipidemia) HTN (hypertension) Social History Social History Advance Directives: No Advance Directives Information Provided: Yes Physical Exam Vital Signs: Vital Signs: Last Vital Signs Temp 98.3 F 09/11/22 14:32 Pulse 90 09/11/22 14:32 Resp 18 09/11/22 14:32 BP 142/73 H 09/11/22 14:32 Pulse Ox 96 09/11/22 14:32 O2 Del Method Room Air 09/11/22 14:32 BMI result Body Mass Index 28.7 Course Course Course Narrative: RME: 72 yold female presents to the ED COugh, wheezing, and SOB since sunday. Vital signs stable. labs, xray, and covid/ingleuzan ordered Medical Decision Making Lab Data 09/11/22 15:45 09/11/22 15:45 Labs: Lab Results 09/11/22 09/11/22 09/11/22 Range/Units 15:45 15:45 15:45 WBC 6.8 (4.8-10.8) X10*3/uL RBC 4.38 (4.20-5.50) X10*6/uL Hgb 11.8 L (12.0-16.0) g/dl Hct 36.7 L (37.0-47.0) % MCV 83.8 (80.0-98.0) fL MCH 26.9 L (27.0-33.0) pg MCHC 32.2 (31.0-35.0) g/dl RDW 15.3 (11.0-16.0) % Plt Count 306 (160-400) X10*3/uL MPV 10.3 (9.4-12.3) fL Immature Gran % (Auto) 0.3 (0.0-0.4) % Neut % (Auto) 58.4 (45-73) % Lymph % (Auto) 27.4 (20-40) % [place] % (Auto) 10.6 (2-11) % Eos % (Auto) 2.9 (0-4) % Baso % (Auto) 0.4 (0-2) % Lymph # (Auto) 1.9 (1.2-4.9) X10*3/uL [place] # (Auto) 0.7 (0.1-1.2) X10*3/uL Eos # (Auto) 0.2 (0.0-0.4) X10*3/uL Baso # (Auto) 0.0 (0.0-0.2) X10*3/uL Abs Immat Gran (auto) 0.02 (0.00-0.03) X10*3/uL Absolute Neuts (auto) 4.0 (2.0-8.3) x10*3/uL Absolute Nucleated RBC 0.000 (0.0-0.012) X10*3/uL Nucleated RBC % (auto) 0.0 (0.0-0.2) /100WBC Sodium 142 (135-145) mmol/L Potassium 3.7 (3.3-5.1) mmol/L Chloride 108 (96-108) mmol/L Carbon Dioxide 23 (22-29) mmol/L Anion Gap 15 (12-20) BUN 9 (9-16) mg/dL Creatinine 0.74 (0.5-1.4) mg/dL Estim Creat Clear Calc 62.6 Estimated GFR > 60 Random Glucose 97 (60-115) mg/dL Calcium 10.4 H D (8.4-10.2) mg/dL Total Bilirubin 0.5 (0.0-1.0) mg/dL AST 35 H (5-31) U/L ALT 35 H (0-31) U/L Alkaline Phosphatase 75 (39-117) U/L Troponin I High Sens < 2.7 (<3.5-17.0) ng/L B-Natriuretic Peptide (<100) pg/mL Total Protein 7.4 (6.5-8.0) g/dL Albumin 4.6 (3.5-5.0) g/dL COVID-19 ([facility]IA) (Negative) COVID-19 Clin Com Influenza Type A ([facility]MON) (Negative) Influenza Type B (RAYMON) (Negative) Influenza A & B Note 09/11/22 09/11/22 09/11/22 Range/Units 15:45 15:45 15:45 WBC (4.8-10.8) X10*3/uL RBC (4.20-5.50) X10*6/uL Hgb (12.0-16.0) g/dl Hct (37.0-47.0) % MCV (80.0-98.0) fL MCH (27.0-33.0) pg MCHC (31.0-35.0) g/dl RDW (11.0-16.0) % Plt Count (160-400) X10*3/uL MPV (9.4-12.3) fL Immature Gran % (Auto) (0.0-0.4) % Neut % (Auto) (45-73) % Lymph % (Auto) (20-40) % [place] % (Auto) (2-11) % Eos % (Auto) (0-4) % Baso % (Auto) (0-2) % Lymph # (Auto) (1.2-4.9) X10*3/uL [place] # (Auto) (0.1-1.2) X10*3/uL Eos # (Auto) (0.0-0.4) X10*3/uL Baso # (Auto) (0.0-0.2) X10*3/uL Abs Immat Gran (auto) (0.00-0.03) X10*3/uL Absolute Neuts (auto) (2.0-8.3) x10*3/uL Absolute Nucleated RBC (0.0-0.012) X10*3/uL Nucleated RBC % (auto) (0.0-0.2) /100WBC Sodium (135-145) mmol/L Potassium (3.3-5.1) mmol/L Chloride (96-108) mmol/L Carbon Dioxide (22-29) mmol/L Anion Gap (12-20) BUN (9-16) mg/dL Creatinine (0.5-1.4) mg/dL Estim Creat Clear Calc Estimated GFR Random Glucose (60-115) mg/dL Calcium (8.4-10.2) mg/dL Total Bilirubin (0.0-1.0) mg/dL AST (5-31) U/L ALT (0-31) U/L Alkaline Phosphatase (39-117) U/L Troponin I High Sens (<3.5-17.0) ng/L B-Natriuretic Peptide 44 (<100) pg/mL Total Protein (6.5-8.0) g/dL Albumin (3.5-5.0) g/dL COVID-19 (DACIA) Negative (Negative) COVID-19 Clin Com See Note Influenza Type A ([facility]MON) Negative (Negative) Influenza Type B ([facility]MON) Negative (Negative) Influenza A & B Note See Note Discharge Plan Discharge Clinical Impression: Shortness of breath Patient Disposition: Elopement Prescriptions: No Action doxycycline monohydrate 100 mg tablet 100 mg PO BID Qty: 20 0RF prednisone 20 mg tablet 40 mg PO DAILY Qty: 10 0RF benzonatate 200 mg capsule 200 mg PO TID PRN (Reason: cough) Qty: 20 0RF azithromycin 250 mg tablet See Rx Instructions .ROUTE .COMPLEX Qty: 6 0RF Rx Instructions: For 250 mg dose pack: take 500 mg today (day 1), then 250 mg for 4 days (days 2-5) prednisone 20 mg tablet 20 mg PO DAILY 5 Days Qty: 5 0RF albuterol sulfate 90 mcg/actuation aerosol powdr breath activated 2 inh inhalation Q4-6H PRN (Reason: shortness of breath) Qty: 1 0RF amoxicillin-pot clavulanate 875-125 mg tablet 1 tab PO BID 7 Days Qty: 14 0RF cefpodoxime 200 mg tablet 200 mg PO BID Qty: 20 0RF Rx Instructions: must administer with a meal/food benzonatate 200 mg capsule 200 mg PO TID PRN (Reason: cough) Qty: 20 0RF prednisone 20 mg tablet 40 mg PO DAILY Qty: 10 0RF doxycycline hyclate 100 mg tablet 100 mg PO BID Qty: 20 0RF prednisone 20 mg tablet 20 mg PO DAILY 7 Days Qty: 7 0RF doxycycline hyclate 100 mg tablet 100 mg PO BID 7 Days Qty: 14 0RF albuterol sulfate 1.25 mg/3 mL solution for nebulization 1.25 mg inhalation QID PRN (Reason: shortness of breath or wheezing) Qty: 90 0RF Interventions: ED Discharge Assessment Last Done: 09/11/22 21:35 Discharge Date/Time: 09/11/22 21:36
== END 2022-09-11 21:36 | disposition left against medical advice (07) ==
PROVIDERS: Emergency Provider Emergency Medicine; PCP Nurse Practitioner Family
DX: R06.02 Shortness of breath (principal); Z20.822 Contact with and (suspected) exposure to COVID-19; I10 Essential (primary) hypertension; E78.5 Hyperlipidemia, unspecified; Z79.899 Other long term (current) drug therapy
CPT/HCPCS: 80053; 83880; 84484; 85025; 87502; 87635; 93005; 99283

== ENCOUNTER 2022-09-13 08:59 | Emergency (ER) | payer MEDICARE, SELFPAY ==
[2022-09-13 09:05] VITALS: BP 147/84; PULSE 97; RESP 20; TEMP 36.4; O2SAT 95; BMI 28.5
--- NOTE | 2022-09-13 09:17 | ED_ITS ---
HPI - General Adult General Chief complaint: Dyspnea Stated complaint: Cough Wheezing Diff Breathing Time Seen by Provider: 09/13/22 09:17 Source: patient and family (patient's ) Mode of arrival: ambulatory Limitations: no limitations History of Present Illness HPI narrative: Patient is a 72 year old assigned female at with a history of asthma presenting to the emergency department today with a persistent cough and wheezing. Patient states that she has had a cough and wheezing for the last week. Patient states that the last time this happened, she went and saw an urgent care in [place] and was given antibiotics and oral steroids which helped. Patient denies any dizziness, lightheadedness, abdominal pain, nausea, vomiting, fever, chills, blurry vision, double vision, loss of vision, chest pain, back pain, night sweats, pain with urination, increased urinary frequency, increased urinary urgency, blood in her urine or stool, syncope or a near syncopal episode, recent trauma or falls, bowel incontinence, bladder incontinence, bowel retention, bladder retention, or any other complaints at this time. Onset (ago): week(s) (1) Severity: mild Severity scale (1-10): 3 Relieving factors: none Exacerbating factors: none Associated symptoms: cough Treatments prior to arrival: none Related Data Previous Rx's Medication Instructions Recorded albuterol sulfate 90 mcg/actuation 2 inh inhalation Q4-6H PRN 05/11/21 breath activated powder inhaler shortness of breath #1 ea amoxicillin 875 mg-potassium 1 tab PO BID 7 days #14 tabs 05/11/21 clavulanate 125 mg tablet azithromycin 250 mg tablet See Rx Instructions PO .COMPLEX #6 05/11/21 tabs prednisone 20 mg tablet 20 mg PO DAILY 5 days #5 tabs 05/11/21 benzonatate 200 mg capsule 200 mg PO TID PRN cough #20 caps 07/01/21 cefpodoxime 200 mg tablet 200 mg PO BID #20 tabs 07/01/21 doxycycline hyclate 100 mg tablet 100 mg PO BID #20 tabs 07/01/21 prednisone 20 mg tablet 40 mg PO DAILY #10 tabs 07/01/21 benzonatate 200 mg capsule 200 mg PO TID PRN cough #20 caps 09/08/21 doxycycline monohydrate 100 mg 100 mg PO BID #20 tabs 09/08/21 tablet prednisone 20 mg tablet 40 mg PO DAILY #10 tabs 09/08/21 albuterol sulfate 1.25 mg/3 mL 1.25 mg (3 mL) inhalation QID PRN 09/13/22 solution for nebulization shortness of breath or wheezing #90 mL doxycycline hyclate 100 mg tablet 100 mg PO BID 7 days #14 tabs 09/13/22 prednisone 20 mg tablet 20 mg PO DAILY 7 days #7 tabs 09/13/22 Allergies Allergy/AdvReac Type Severity Reaction Status Date / Time codeine Allergy Intermediate Unconscious Verified 09/13/22 09:08 lisinopril Allergy Difficulty Verified 09/13/22 09:08 Breathing Review of Systems Constitutional: Constitutional: Reports no additional constitutional complaints, Denies chills, Denies fever(s) and Denies night sweats Eyes: Eyes: Reports no additional eye complaints, Denies blurry vision, Denies change in vision, Denies diplopia, Denies eye discharge, Denies loss of vision and Denies eye pain ENT: Denies dizziness Cardiovascular: Cardiovascular: Reports no additional cardiovascular complaints, Denies chest pain, Denies lightheadedness, Denies Loss of Consciousness and Reports dyspnea Respiratory: Respiratory: Reports no additional respiratory complaints, Reports cough, Reports dyspnea and Reports wheezing Gastrointestinal: Gastrointestinal: Reports no additional gastrointestinal complaints, Denies abdominal pain, Denies melena, Denies hematochezia, Denies change in bowel habits and Denies change in stool character Genitourinary: Genitourinary: Denies hematuria, Denies urinary frequency, Denies dysuria, Denies urinary incontinence, Denies urinary hesitancy and Denies urinary urgency Musculoskeletal: Musculoskeletal: Reports no additional musculoskeletal complaints, Denies numbness and Denies tingling Neurologic: Denies dizziness, Denies loss of vision, Denies numbness and Denies tingling Psychiatric: Psychiatric: Reports no additional psychiatric complaints Endocrine: Endocrine: Reports no additional endocrine complaints Hematologic/Lymphatic: Hematologic/Lymphatic: Reports no additional hematologic/lymphatic complaints Allergic/Immunologic: Allergic/Immunologic: Reports no additional allergic/im munologic complaints and Reports wheezing PMFSH Past Medical History Attestation statement: The following information was validated with the patient. (all information validated with the patient's ) Source: old records reviewed, obtained from family (patient's ) and nursing notes reviewed Medical History Asthma HLD (hyperlipidemia) HTN (hypertension) Social History Social History Advance Directives: No Advance Directives Information Provided: Yes Physical Exam ED Vital Signs: Vital Signs - 24 hr 09/13/22 09:05 09/13/22 09:19 09/13/22 09:38 Temperature 97.6 F 98.1 F Pulse Rate 97 80 86 Respiratory Rate 20 17 14 Blood Pressure 147/84 H 121/62 Pulse Oximetry 95 97 Oxygen Delivery Method Room Air Room Air 09/13/22 10:00 09/13/22 12:00 Temperature Pulse Rate 78 78 Respiratory Rate 17 18 Blood Pressure 143/71 H Pulse Oximetry 96 96 Oxygen Delivery Method Room Air BMI result Body Mass Index 28.5 Const General: cooperative, no acute distress, alert and awake Nutritional Appearance: well nourished Orientation/consciousness: patient oriented x3 Limitations: no limitations HENMT Head: Yes normal to inspection and Yes atraumatic Ears: hearing grossly normal bilaterally and external ears normal General nose exam: Normal external nose present, no nasal discharge noted and no epistaxis Face and sinus: Yes normal facial exam, No abrasion and No laceration Mouth: Normal oral and palatal mucosa present, no drooling and no muffled voice Eyes General: appearance normal, both eyes and all related structures Periorbital: periorbital findings normal Eyelids: Yes eyelids normal Conjunctivae: conjunctivae normal Pupils: Equal, round and reactive pupils present EOM: EOMs intact bilaterally Neck Neck: Yes normal visual inspection, Yes full ROM and Yes no lymphadenopathy Chest Chest palpation & inspection: normal inspection of the chest Resp Effort & Inspection: normal respiratory effort and able to speak in complete sentences Auscultation: wheezes throughout Cardio Rate: regular rate Rhythm: regular rhythm GI Inspection: Yes normal to inspection Neuro General: patient oriented x3 and moves all extremities Cranial nerves: Yes Equal, round and reactive pupils present Cognition (Neuro): normal cognition Motor exam (neuro): 5/5 motor strength present throughout Sensory Exam: Normal double simultaneous stimulation for sensation Coordination: [id number] test normal Extrem General: Yes normal to inspection, Yes full ROM and Yes capillary refill normal Psych Appearance: grossly normal Mental Status: mental status grossly normal Affect: normal affect Attitude: cooperative Thought process: Normal thought process present Thought content: Normal thought content present Insight: Good insight present (Psych) Medications Administered Discontinued Medications Generic Name Dose Route Start Last Admin Trade Name Angelica PRN Reason Stop Dose Admin Albuterol Sulfate 7.5 mg/ 0 mg 09/13/22 09:23 09/13/22 09:38 Albuterol/Ipratropium 3 ml INHALE 09/13/22 09:24 10 each ONCE ONE Administration Methylprednisolone Sodium Succinate 60 mg 09/13/22 09:23 09/13/22 09:49 Methylprednisolone Sod Succ 125 Mg/2 Ml Vial IVPUSH 09/13/22 09:24 60 mg ONCE ONE Administration Medical Decision Making Medical Decision Making [facility] Narrative: Patient is a 72 year old assigned female at with a history of asthma presenting to the emergency department today with wheezing. Patient's physical exam was as noted in the physical exam portion of this chart. Patient's blood work was unremarkable. Patient's EKG was unremarkable. Patient's chest x-ray showed a left lower lobe infiltrate vs. atelectasis. Given the patient's history of asthma and persistent cough, will cover as if it is an infiltrate. I explained my physical exam findings as well as all test results to the patient and the patient's . I answered all questions asked by the patient and the patient's . Patient received a breathing treatment and IV solu-medrol which she stated helped her symptoms significantly. I stressed the importance of the patient taking her medication as prescribed. I stressed the importance of the patient following up with her primary care provider. I stressed the importance of the patient returning to the emergency department immediately if her symptoms were to worsen or if she were to develop any dizziness, shortness of breath, difficulty breathing, chest pain, blurry vision, loss of vision, nausea, vomiting, abdominal pain, fever, chills, back pain, or any other comp laints. Patient and the patient's verbalized agreement and understanding with this treatment plan and discharge. Differential Diagnosis Differential Diagnoses: The differential diagnosis associated with the presentation includes Pneumonia Asthma exacerbation Wheezing Asthma Reactive airway disease COPD Viral illness Admission/Observation Consideration of admission/observation: Escalation of care including admission/observation considered Patient would have been admitted to the hospital had her work up had any findings where hospital admission was appropriate and her clinical presentation warranted hospital admission. Lab Data [facility] Lab Attestation statement: I reviewed the patient's lab results. My interpretation of these studies and their corresponding values is that they are grossly normal. 09/13/22 09:43 09/13/22 09:43 Labs: Lab Results 09/13/22 09/13/22 09/13/22 Range/Units 09:43 09:43 09:43 WBC 5.2 (4.8-10.8) X10*3/uL RBC 4.35 (4.20-5.50) X10*6/uL Hgb 11.8 L (12.0-16.0) g/dl Hct 36.1 L (37.0-47.0) % MCV 83.0 (80.0-98.0) fL MCH 27.1 (27.0-33.0) pg MCHC 32.7 (31.0-35.0) g/dl RDW 15.1 (11.0-16.0) % Plt Count 278 (160-400) X10*3/uL MPV 10.3 (9.4-12.3) fL Immature Gran % (Auto) 0.2 (0.0-0.4) % Neut % (Auto) 55.9 (45-73) % Lymph % (Auto) 30.4 (20-40) % [place] % (Auto) 10.0 (2-11) % Eos % (Auto) 2.9 (0-4) % Baso % (Auto) 0.6 (0-2) % Lymph # (Auto) 1.6 (1.2-4.9) X10*3/uL [place] # (Auto) 0.5 (0.1-1.2) X10*3/uL Eos # (Auto) 0.2 (0.0-0.4) X10*3/uL Baso # (Auto) 0.0 (0.0-0.2) X10*3/uL Abs Immat Gran (auto) 0.01 (0.00-0.03) X10*3/uL Absolute Neuts (auto) 2.9 (2.0-8.3) x10*3/uL Absolute Nucleated RBC 0.000 (0.0-0.012) X10*3/uL Nucleated RBC % (auto) 0.0 (0.0-0.2) /100WBC Sodium 143 (135-145) mmol/L Potassium 3.4 (3.3-5.1) mmol/L Chloride 109 H (96-108) mmol/L Carbon Dioxide 23 (22-29) mmol/L Anion Gap 14 (12-20) BUN 13 (9-16) mg/dL Creatinine 0.84 (0.5-1.4) mg/dL Estim Creat Clear Calc 54.9 Estimated GFR > 60 Random Glucose 125 H (60-115) mg/dL Calcium 10.1 (8.4-10.2) mg/dL Total Bilirubin 0.5 (0.0-1.0) mg/dL AST 26 (5-31) U/L ALT 33 H (0-31) U/L Alkaline Phosphatase 68 (39-117) U/L Troponin I High Sens < 2.7 (<3.5-17.0) ng/L B-Natriuretic Peptide (<100) pg/mL Total Protein 7.1 (6.5-8.0) g/dL Albumin 4.3 (3.5-5.0) g/dL COVID-19 (DACIA) (Negative) COVID-19 Clin Com 09/13/22 09/13/22 Range/Units 09:43 09:44 WBC (4.8-10.8) X10*3/uL RBC (4.20-5.50) X10*6/uL Hgb (12.0-16.0) g/dl Hct (37.0-47.0) % MCV (80.0-98.0) fL MCH (27.0-33.0) pg MCHC (31.0-35.0) g/dl RDW (11.0-16.0) % Plt Count (160-400) X10*3/uL MPV (9.4-12.3) fL Immature Gran % (Auto) (0.0-0.4) % Neut % (Auto) (45-73) % Lymph % (Auto) (20-40) % [place] % (Auto) (2-11) % Eos % (Auto) (0-4) % Baso % (Auto) (0-2) % Lymph # (Auto) (1.2-4.9) X10*3/uL [place] # (Auto) (0.1-1.2) X10*3/uL Eos # (Auto) (0.0-0.4) X10*3/uL Baso # (Auto) (0.0-0.2) X10*3/uL Abs Immat Gran (auto) (0.00-0.03) X10*3/uL Absolute Neuts (auto) (2.0-8.3) x10*3/uL Absolute Nucleated RBC (0.0-0.012) X10*3/uL Nucleated RBC % (auto) (0.0-0.2) /100WBC Sodium (135-145) mmol/L Potassium (3.3-5.1) mmol/L Chloride (96-108) mmol/L Carbon Dioxide (22-29) mmol/L Anion Gap (12-20) BUN (9-16) mg/dL Creatinine (0.5-1.4) mg/dL Estim Creat Clear Calc Estimated GFR Random Glucose (60-115) mg/dL Calcium (8.4-10.2) mg/dL Total Bilirubin (0.0-1.0) mg/dL AST (5-31) U/L ALT (0-31) U/L Alkaline Phosphatase (39-117) U/L Troponin I High Sens (<3.5-17.0) ng/L B-Natriuretic Peptide 43 (<100) pg/mL Total Protein (6.5-8.0) g/dL Albumin (3.5-5.0) g/dL COVID-19 ([facility]IA) Negative (Negative) COVID-19 Clin Com See Note Independent Interpretation I performed an independent interpretation of an: Plain X-Ray Interpretation: My interpretation is in agreement with the radiologist's impression of this imaging study. EXAMINATION: XR CHEST CLINICAL INFORMATION: Cough and shortness of breath COMPARISON: chest radiograph dated 09/08/2021 along with radiograph dating back to 07/23/2006 CT chest 05/11/2021 TECHNIQUE: 2 views of the chest were obtained. FINDINGS: Heart size normal. No evidence of CHF. Previously seen right lower lobe infiltrate/consolidation has cleared and a small linear area of scarring is present. Patchy infiltration is seen in the posterior basal segment of the left lower lobe with some obscuration of the hemidiaphragm consistent with atelectasis/infiltrate. Some chronic lingular scarring is again noted. Similar but slightly less marked findings were present on the 09/08/2021 study XR/XR chest 2V IMPRESSION: 1.? Left lower lobe infiltrate/atelectasis. 2.? Resolution of previously seen right lower lobe infiltrate/consolidation. Dictated By: Jordan Schwartz MD Signed By: Electronically signed by Jordan Schwartz MD 09/13/22 1128 Vent. Rate: 081 BPM ? ? Atrial Rate: 081 BPM P-R Int: 164 ms? QRS Dur: 084 ms QT Int: 386 ms ? ? ? P-R-T Axes: 050 022 033 degrees QTc Int: 448 ms ? Normal sinus rhythm Normal ECG When compared with ECG of 11-SEP-2022 15:32, No significant change was found ? Electronically Signed By:JAMARI HELM Dictated By: Jamari Helm MD Signed By: Electronically signed by Jamari Helm MD 09/13/22 1203 Radiology Impression Discussion of test interpretation with radiology: I have reviewed the radiologist's reading. Independent Historian Clinical information obtained from an independent historian. History obtained from or confirmed by: Spouse (patient's provided additional history and confirmed the history provided by the patient. ) External Record Review External record reviewed: Other (reviewed patient's previous ED visits and imaging) Prescription Management I considered prescription management with: Antibiotic (patient prescribed antibiotics) Chronic Conditions Patient?s care impacted by: Other (asthma) Critical Care Time Critical Care Time Critical Care Time: Yes Total Critical Care Time: 30 Attestation: I spent 30 minutes of Critical Care Time with this patient. This does not include time spent on separately reported billable procedures. Discharge Plan Discharge Clinical Impression: Asthma with exacerbation, Community acquired pneumonia Patient Disposition: Home, Self-Care Instructions: Asthma (DC), Community Acquired Pneumonia (DC) Additional Instructions: Follow up with your primary care provider. Return to the emergency department immediately if your symptoms worsen or if you develop any dizziness, shortness of breath, difficulty breathing, chest pain, blurry vision, loss of vision, nausea, vomiting, abdominal pain, fever, chills, back pain, or any other complaints. Prescriptions: New prednisone 20 mg tablet 20 mg PO DAILY 7 Days Qty: 7 0RF doxycycline hyclate 100 mg tablet 100 mg PO BID 7 Days Qty: 14 0RF albuterol sulfate 1.25 mg/3 mL solution for nebulization 1.25 mg inhalation QID PRN (Reason: shortness of breath or wheezing) Qty: 90 0RF No Action doxycycline monohydrate 100 mg tablet 100 mg PO BID Qty: 20 0RF prednisone 20 mg tablet 40 mg PO DAILY Qty: 10 0RF benzonatate 200 mg capsule 200 mg PO TID PRN (Reason: cough) Qty: 20 0RF azithromycin 250 mg tablet See Rx Instructions .ROUTE .COMPLEX Qty: 6 0RF Rx Instructions: For 250 mg dose pack: take 500 mg today (day 1), then 250 mg for 4 days (days 2-5) prednisone 20 mg tablet 20 mg PO DAILY 5 Days Qty: 5 0RF albuterol sulfate 90 mcg/actuation aerosol powdr breath activated 2 inh inhalation Q4-6H PRN (Reason: shortness of breath) Qty: 1 0RF amoxicillin-pot clavulanate 875-125 mg tablet 1 tab PO BID 7 Days Qty: 14 0RF cefpodoxime 200 mg tablet 200 mg PO BID Qty: 20 0RF Rx Instructions: must administer with a meal/food benzonatate 200 mg capsule 200 mg PO TID PRN (Reason: cough) Qty: 20 0RF prednisone 20 mg tablet 40 mg PO DAILY Qty: 10 0RF doxycycline hyclate 100 mg tablet 100 mg PO BID Qty: 20 0RF Referrals: Nani Ling NP [Primary Care Provider] - Interventions: ED Discharge Assessment Last Done: 09/13/22 12:06 Discharge Date/Time: 09/13/22 12:07 Print Language: Mauritanian
[2022-09-13 09:19] VITALS: BP 121/62; PULSE 80; RESP 17; TEMP 36.7; O2SAT 97
[2022-09-13 09:38] VITALS: PULSE 86; RESP 14; O2SAT 95
[2022-09-13 10:00] VITALS: PULSE 78; RESP 17; O2SAT 96
--- NOTE | 2022-09-13 10:24 | PC.NURSE ---
finishing navneet georges, skin wphayes mack to bedside, labs reviewed w pt and family
[2022-09-13 12:00] VITALS: BP 143/71; PULSE 78; RESP 18; O2SAT 96
== END 2022-09-13 12:07 | disposition home or self-care (01) ==
PROVIDERS: Emergency Provider Emergency Medicine; PCP Nurse Practitioner Family
DX: J45.901 Unspecified asthma with (acute) exacerbation (principal); J18.8 Other pneumonia, unspecified organism; Z20.822 Contact with and (suspected) exposure to COVID-19; R06.00 Dyspnea, unspecified; I10 Essential (primary) hypertension; E78.5 Hyperlipidemia, unspecified; Z79.899 Other long term (current) drug therapy
CPT/HCPCS: 36415; 71046; 80053; 83880; 84484; 85025; 87635; 93005; 94640; 96374; 99284; J2930

== ENCOUNTER 2022-09-19 06:46 | Emergency (ER) | payer MEDICARE, SELFPAY ==
--- NOTE | ~2022-09-19 | XR_ITS ---
EXAMINATION: XR chest 2V CLINICAL INFORMATION: Reason for Exam cough, shortness of breath COMPARISON: Prior chest x-ray 09/13/2022 TECHNIQUE: XR chest 2V Lungs and [place]: Mild infiltrate/atelectasis at left lung base medially is improving. Flattening of right hemidiaphragm suggest underlying air trapping disease COPD. Pleura: Normal. Costophrenic angles are sharp. No pneumothorax. Heart: The heart is normal in size. Mediastinum: The mediastinum is within normal limits.. Bones: Skeletal structures included are normal for patient's age. XR/XR chest 2V IMPRESSION: * Improving mild infiltrate/atelectasis at left lung base medially. * Flattening of right hemidiaphragm suggests underlying air trapping disease COPD.
[2022-09-19 06:49] VITALS: BP 153/73; PULSE 86; RESP 18; TEMP 36.1; O2SAT 96; BMI 28.3
--- NOTE | 2022-09-19 07:05 | ED_ITS ---
HPI - General Adult General Chief complaint: Upper Respiratory Symptoms Stated complaint: Pneumonia Time Seen by Provider: 09/19/22 07:04 Source: patient and family (patient's ) Mode of arrival: ambulatory Limitations: no limitations History of Present Illness HPI narrative: 72 year old female patient with history of asthma presents to the ED for continued upper respiratory symptoms and difficulty breathing. She last presented to the ED on 09/13/22 for the same symptoms. She was discharged home that same day with prescriptions for prednisone, doxycycline and albuterol sulfate. Patient today complains of no improvement in her breathing and states she is still coughing up yellow phlegm often. She denies chest pain, fever, chills, body aches. Patient elicits some nausea after nebulizer treatment during previous ED visit but states that it improved her breathing significantly so she is open to receiving another treatment. Onset (ago): week(s) Severity: moderate Severity scale (1-10): 2 Associated symptoms: cough and nausea/vomiting Related Data Previous Rx's Medication Instructions Recorded albuterol sulfate 90 mcg/actuation 2 inh inhalation Q4-6H PRN 05/11/21 breath activated powder inhaler shortness of breath #1 ea amoxicillin 875 mg-potassium 1 tab PO BID 7 days #14 tabs 05/11/21 clavulanate 125 mg tablet azithromycin 250 mg tablet See Rx Instructions PO .COMPLEX #6 05/11/21 tabs prednisone 20 mg tablet 20 mg PO DAILY 5 days #5 tabs 05/11/21 benzonatate 200 mg capsule 200 mg PO TID PRN cough #20 caps 07/01/21 cefpodoxime 200 mg tablet 200 mg PO BID #20 tabs 07/01/21 doxycycline hyclate 100 mg tablet 100 mg PO BID #20 tabs 07/01/21 prednisone 20 mg tablet 40 mg PO DAILY #10 tabs 07/01/21 benzonatate 200 mg capsule 200 mg PO TID PRN cough #20 caps 09/08/21 doxycycline monohydrate 100 mg 100 mg PO BID #20 tabs 09/08/21 tablet prednisone 20 mg tablet 40 mg PO DAILY #10 tabs 09/08/21 albuterol sulfate 1.25 mg/3 mL 1.25 mg (3 mL) inhalation QID PRN 09/13/22 solution for nebulization shortness of breath or wheezing #90 mL doxycycline hyclate 100 mg tablet 100 mg PO BID 7 days #14 tabs 09/13/22 prednisone 20 mg tablet 20 mg PO DAILY 7 days #7 tabs 09/13/22 doxycycline hyclate 100 mg tablet 100 mg PO BID 7 days #14 tabs 09/19/22 prednisone 20 mg tablet 20 mg PO DAILY 7 days #7 tabs 09/19/22 Allergies Allergy/AdvReac Type Severity Reaction Status Date / Time codeine Allergy Intermediate Unconscious Verified 09/13/22 09:08 lisinopril Allergy Difficulty Verified 09/13/22 09:08 Breathing Review of Systems Constitutional: Constitutional: Reports no additional constitutional complaints, Denies chills, Denies fever(s) and Denies night sweats Eyes: Eyes: Reports no additional eye complaints, Denies blurry vision, Denies change in vision, Denies diplopia, Denies eye discharge, Denies loss of vision and Denies eye pain ENT: Denies dizziness Cardiovascular: Cardiovascular: Reports no additional cardiovascular complaints, Denies chest pain, Denies lightheadedness, Denies Loss of Consciousn ess and Reports dyspnea Respiratory: Respiratory: Reports chest congestion, Reports cough, Reports dyspnea and Reports wheezing Gastrointestinal: Gastrointestinal: Reports no additional gastrointestinal complaints, Denies abdominal pain, Denies melena, Denies hematochezia, Denies change in bowel habits and Denies change in stool character Genitourinary: Genitourinary: Denies hematuria, Denies urinary frequency, Denies dysuria, Denies urinary incontinence, Denies urinary hesitancy and Denies urinary urgency Musculoskeletal: Musculoskeletal: Reports no additional musculoskeletal complaints, Denies numbness and Denies tingling Neurologic: Denies dizziness, Denies loss of vision, Denies numbness and Denies tingling Psychiatric: Psychiatric: Reports no additional psychiatric complaints Endocrine: Endocrine: Reports no additional endocrine complaints Hematologic/Lymphatic: Hematologic/Lymphatic: Reports no additional hematologic/lymphatic complaints Allergic/Immunologic: Allergic/Immunologic: Reports no additional allergic/immunologic complaints and Reports wheezing PMFSH Past Medical History Attestation statement: The following information was validated with the patient. (all information validated with the patient's ) Source: old records reviewed, obtained from family (patient's ) and nursing notes reviewed Medical History Asthma HLD (hyperlipidemia) HTN (hypertension) Social History Social History Alcohol intake: never Physical Exam ED Vital Signs: Vital Signs - 24 hr 09/19/22 06:49 09/19/22 07:32 09/19/22 08:05 Temperature 97.0 F Pulse Rate 86 86 Respiratory Rate 18 16 Blood Pressure 153/73 H Pulse Oximetry 96 94 Oxygen Delivery Method Room Air Room Air 09/19/22 11:10 Temperature Pulse Rate 83 Respiratory Rate 19 Blood Pressure 125/68 Pulse Oximetry 91 L Oxygen Delivery Method Room Air BMI result Body Mass Index 28.3 Const General: cooperative, no acute distress, alert and awake Nutritional Appearance: well nourished Orientation/consciousness: patient oriented x3 Limitations: no limitations HENMT Head: Yes normal to inspection and Yes atraumatic Ears: hearing grossly normal bilaterally and external ears normal General nose exam: Normal external nose present, no nasal discharge noted and no epistaxis Face and sinus: Yes normal facial exam, No abrasion and No laceration Mouth: Normal oral and palatal mucosa present, no drooling and no muffled voice Eyes General: appearance normal, both eyes and all related structures Periorbital: periorbital findings normal Eyelids: Yes eyelids normal Conjunctivae: conjunctivae normal Pupils: Equal, round and reactive pupils present EOM: EOMs intact bilaterally Neck Neck: Yes normal visual inspection, Yes full ROM and Yes no lymphadenopathy Chest Chest palpation & inspection: normal inspection of the chest Resp Effort & Inspection: able to speak in complete sentences and Actively coughing Quality: productive Auscultation: crackles on the right Cardio Rate: regular rate Rhythm: regular rhythm Heart sounds: S1 normal heart sound present and S2 normal heart sound present GI Inspection: Yes normal to inspection Neuro General: patient oriented x3 and moves all extremities Cranial nerves: Yes Equal, round and reactive pupils present Cognition (Neuro): normal cognition Motor exam (neuro): 5/5 motor strength present throughout Sensory Exam: Normal double simultaneous stimulation for sensation Coordination: [id number] test normal Extrem General: Yes normal to inspection, Yes full ROM and Yes capillary refill normal Psych Appearance: grossly normal Mental Status: mental status grossly normal Affect: normal affect Attitude: cooperative Thought process: Normal thought process present Thought content: Normal thought content present Insight: Good insight present (Psych) Medications Administered Discontinued Medications Generic Name Dose Route Start Last Admin Trade Name Angelica PRN Reason Stop Dose Admin Albuterol Sulfate 7.5 mg/ 10 mg 09/19/22 07:06 09/19/22 07:29 Albuterol Sulfate 2.5 mg INHALE 09/19/22 07:07 10 mg ONCE ONE Administration Dexamethasone Sodium Phosphate 10 mg 09/19/22 07:06 09/19/22 07:55 Dexamethasone Sod Phosphate 10 Mg/Ml Vial IVPUSH 09/19/22 07:07 10 mg ONCE ONE Administration Potassium Chloride 10 meq in 100 mls @ 100 mls/hr 09/19/22 08:30 09/19/22 12:26 Potassium Chloride/H20 IV 09/19/22 10:29 Infused Q1H IONA Infusion Medical Decision Making Medical Decision Making [facility] Narrative: Patient is a 72 year old assigned female at with a history of asthma presenting to the emergency department today with persistent cough and wheezing. Patient's physical exam was as noted in the physical exam portion of this chart. Patient's blood work showed decreased potassium of 3.1 and an elevated WBC count of 12. Patient's WBC count is likely elevated secondary to recent steroid use. The rest of the patient's labs are grossly unremarkable. Patient's EKG was unremarkable. Patient's chest x-ray showed an improvement of the infiltrate as compared to the previous exam. I consulted my attending physician Dr. Brooke about this patient who recommended I continue the patient on an additional week of steroids and an antibiotic as the patient did not have a clinical presentation that warranted clinical admission. Patient was not hypoxic or tachycardic. I explained my physical exam findings as well as all test results to the patient and the patient's . I answered all questions asked by the patient and the patient's . Patient received a breathing treatment which she stated helped her symptoms significantly. I stressed the importance of the patient taking her medication as prescribed. I stressed the importance of the patient following up with her primary care provider and her director of child welfare services. Patient states that she and her are taking a cruise this weekend but she will call her director of child welfare services when she gets back. I stressed the importance of the patient returning to the emergency department immediately if her symptoms were to worsen or if she were to develop any dizziness, shortness of breath, difficulty breathing, chest pain, blurry vision, loss of vision, nausea, vomiting, abdominal pain, fever, chills, back pain, or any other complaints. Patient and the patient's verbalized agreement and understanding with this treatment plan and discharge. Differential Diagnosis Differential Diagnoses: The differential diagnosis associated with the presentation includes Asthma exacerbation Persistent cough URI Admission/Observation Consideration of admission/observation: Escalation of care including admission/observation considered Patient would have been admitted to the hospital had her work up had any findings where hospital admission was appropriate and her clinical presentation warranted hospital admission. Lab Data [facility] Lab Attestation statement: I reviewed the patient's lab results. My interpretation of these results is in the [facility] portion of this chart. 09/19/22 07:45 09/19/22 07:45 Labs: Lab Results 09/19/22 09/19/22 09/19/22 Range/Units 07:45 07:45 07:45 WBC 12.0 H (4.8-10.8) X10*3/uL RBC 4.42 (4.20-5.50) X10*6/uL Hgb 12.3 (12.0-16.0) g/dl Hct 37.4 (37.0-47.0) % MCV 84.6 (80.0-98.0) fL MCH 27.8 (27.0-33.0) pg MCHC 32.9 (31.0-35.0) g/dl RDW 15.3 (11.0-16.0) % Plt Count 292 (160-400) X10*3/uL MPV 10.1 (9.4-12.3) fL Immature Gran % (Auto) 0.8 H (0.0-0.4) % Neut % (Auto) 52.7 (45-73) % Lymph % (Auto) 37.7 (20-40) % [place] % (Auto) 7.5 (2-11) % Eos % (Auto) 0.9 (0-4) % Baso % (Auto) 0.4 (0-2) % Lymph # (Auto) 4.5 (1.2-4.9) X10*3/uL [place] # (Auto) 0.9 (0.1-1.2) X10*3/uL Eos # (Auto) 0.1 (0.0-0.4) X10*3/uL Baso # (Auto) 0.1 (0.0-0.2) X10*3/uL Abs Immat Gran (auto) 0.09 H (0.00-0.03) X10*3/uL Absolute Neuts (auto) 6.3 (2.0-8.3) x10*3/uL Absolute Nucleated RBC 0.000 (0.0-0.012) X10*3/uL Nucleated RBC % (auto) 0.0 (0.0-0.2) /100WBC Sodium 141 (135-145) mmol/L Potassium 3.1 L (3.3-5.1) mmol/L Chloride 106 (96-108) mmol/L Carbon Dioxide 22 (22-29) mmol/L Anion Gap 16 (12-20) BUN 18 H (9-16) mg/dL Creatinine 0.88 (0.5-1.4) mg/dL Estim Creat Clear Calc 52.3 Estimated GFR > 60 Random Glucose 86 (60-115) mg/dL Lactic Acid 0.7 (0.5-2.0) mmol/L Calcium 10.9 H D (8.4-10.2) mg/dL Magnesium 2.3 (1.6-2.6) mg/dL Total Bilirubin 0.7 (0.0-1.0) mg/dL AST 27 (5-31) U/L ALT 43 H (0-31) U/L Alkaline Phosphatase 68 (39-117) U/L Troponin I High Sens (<3.5-17.0) ng/L B-Natriuretic Peptide (<100) pg/mL Total Protein 7.2 (6.5-8.0) g/dL Albumin 4.7 (3.5-5.0) g/dL COVID-19 (DACIA) (Negative) COVID-19 Clin Com Influenza Type A ([facility]) (Negative) Influenza Type B ([facility]MON) (Negative) Influenza A & B Note 09/19/22 09/19/22 09/19/22 Range/Units 07:45 07:46 07:46 WBC (4.8-10.8) X10*3/uL RBC (4.20-5.50) X10*6/uL Hgb (12.0-16.0) g/dl Hct (37.0-47.0) % MCV (80.0-98.0) fL MCH (27.0-33.0) pg MCHC (31.0-35.0) g/dl RDW (11.0-16.0) % Plt Count (160-400) X10*3/uL MPV (9.4-12.3) fL Immature Gran % (Auto) (0.0-0.4) % Neut % (Auto) (45-73) % Lymph % (Auto) (20-40) % [place] % (Auto) (2-11) % Eos % (Auto) (0-4) % Baso % (Auto) (0-2) % Lymph # (Auto) (1.2-4.9) X10*3/uL [place] # (Auto) (0.1-1.2) X10*3/uL Eos # (Auto) (0.0-0.4) X10*3/uL Baso # (Auto) (0.0-0.2) X10*3/uL Abs Immat Gran (auto) (0.00-0.03) X10*3/uL Absolute Neuts (auto) (2.0-8.3) x10*3/uL Absolute Nucleated RBC (0.0-0.012) X10*3/uL Nucleated RBC % (auto) (0.0-0.2) /100WBC Sodium (135-145) mmol/L Potassium (3.3-5.1) mmol/L Chloride (96-108) mmol/L Carbon Dioxide (22-29) mmol/L Anion Gap (12-20) BUN (9-16) mg/dL Creatinine (0.5-1.4) mg/dL Estim Creat Clear Calc Estimated GFR Random Glucose (60-115) mg/dL Lactic Acid (0.5-2.0) mmol/L Calcium (8.4-10.2) mg/dL Magnesium (1.6-2.6) mg/dL Total Bilirubin (0.0-1.0) mg/dL AST (5-31) U/L ALT (0-31) U/L Alkaline Phosphatase (39-117) U/L Troponin I High Sens < 2.7 (<3.5-17.0) ng/L B-Natriuretic Peptide (<100) pg/mL Total Protein (6.5-8.0) g/dL Albumin (3.5-5.0) g/dL COVID-19 ([facility]IA) Negative (Negative) COVID-19 Clin Com See Note Influenza Type A ([facility]MON) Negative (Negative) Influenza Type B ([facility]MON) Negative (Negative) Influenza A & B Note See Note 09/19/22 Range/Units 07:46 WBC (4.8-10.8) X10*3/uL RBC (4.20-5.50) X10*6/uL Hgb (12.0-16.0) g/dl Hct (37.0-47.0) % MCV (80.0-98.0) fL MCH (27.0-33.0) pg MCHC (31.0-35.0) g/dl RDW (11.0-16.0) % Plt Count (160-400) X10*3/uL MPV (9.4-12.3) fL Immature Gran % (Auto) (0.0-0.4) % Neut % (Auto) (45-73) % Lymph % (Auto) (20-40) % [place] % (Auto) (2-11) % Eos % (Auto) (0-4) % Baso % (Auto) (0-2) % Lymph # (Auto) (1.2-4.9) X10*3/uL [place] # (Auto) (0.1-1.2) X10*3/uL Eos # (Auto) (0.0-0.4) X10*3/uL Baso # (Auto) (0.0-0.2) X10*3/uL Abs Immat Gran (auto) (0.00-0.03) X10*3/uL Absolute Neuts (auto) (2.0-8.3) x10*3/uL Absolute Nucleated RBC (0.0-0.012) X10*3/uL Nucleated RBC % (auto) (0.0-0.2) /100WBC Sodium (135-145) mmol/L Potassium (3.3-5.1) mmol/L Chloride (96-108) mmol/L Carbon Dioxide (22-29) mmol/L Anion Gap (12-20) BUN (9-16) mg/dL Creatinine (0.5-1.4) mg/dL Estim Creat Clear Calc Estimated GFR Random Glucose (60-115) mg/dL Lactic Acid (0.5-2.0) mmol/L Calcium (8.4-10.2) mg/dL Magnesium (1.6-2.6) mg/dL Total Bilirubin (0.0-1.0) mg/dL AST (5-31) U/L ALT (0-31) U/L Alkaline Phosphatase (39-117) U/L Troponin I High Sens (<3.5-17.0) ng/L B-Natriuretic Peptide 37 (<100) pg/mL Total Protein (6.5-8.0) g/dL Albumin (3.5-5.0) g/dL COVID-19 ([facility]IA) (Negative) COVID-19 Clin Com Influenza Type A ([facility]) (Negative) Influenza Type B ([facility]MON) (Negative) Influenza A & B Note Independent Interpretation I performed an independent interpretation of an: EKG and Plain X-Ray Interpretation: My interpretation is in agreement with the radiologist's impression of this imaging study. EXAMINATION: XR chest 2V CLINICAL INFORMATION: Reason for Exam cough, shortness of breath COMPARISON: Prior chest x-ray 09/13/2022? TECHNIQUE: XR chest 2V Lungs and [place]: Mild infiltrate/atelectasis at left lung base medially is improving. Flattening of right hemidiaphragm suggest underlying air trapping disease COPD. Pleura: Normal. Costophrenic angles are sharp. No pneumothorax. Heart: The heart is normal in size. Mediastinum: The mediastinum is within normal limits.. Bones: Skeletal structures included are normal for patient's age. XR/XR chest 2V IMPRESSION: ? *? Improving mild infiltrate/atelectasis at left lung base medially. ? *? Flattening of right hemidiaphragm suggests underlying air trapping disease COPD. Dictated By: Giuseppe Sabillon MD Signed By: Electronically signed by Giuseppe Sabillon MD 09/19/22 0804 ------- Vent. Rate: 075 BPM ? ? Atrial Rate: 075 BPM P-R Int: 166 ms? QRS Dur: 084 ms QT Int: 396 ms ? ? ? P-R-T Axes: 043 010 028 degrees QTc Int: 442 ms ? Normal sinus rhythm Normal ECG When compared with ECG of 13-SEP-2022 09:43, No significant change was found ? Electronically Signed By:KALI EDGAR MD Dictated By: Kali Edgar MD Signed By: Electronically signed by Kali Edgar MD 09/19/22 0956 Radiology Impression Discussion of test interpretation with radiology: I have reviewed the radiologist's reading. Independent Historian Clinical information obtained from an independent historian. History obtained from or confirmed by: Spouse (patient's provided additional history and confirmed the history provided by the patient. ) External Record Review External record reviewed: Other (reviewed previous ED visit) Prescription Management I considered prescription management with: Antibiotic (patient prescribed antibiotic) Chronic Conditions Patient?s care impacted by: Other (hx of asthma) Discharge Plan Discharge Clinical Impression: Upper respiratory infection, Acute hypokalemia Patient Disposition: Home, Self-Care Instructions: Hypokalemia (ED), Upper Respiratory Infection (DC) Additional Instructions: Follow up with your primary care provider. Return to the emergency department immediately if your symptoms worsen or if you develop any dizziness, shortness of breath, difficulty breathing, chest pain, blurry vision, loss of vision, nausea, vomiting, abdominal pain, fever, chills, back pain, or any other complaints. Prescriptions: New prednisone 20 mg tablet 20 mg PO DAILY 7 Days Qty: 7 0RF doxycycline hyclate 100 mg tablet 100 mg PO BID 7 Days Qty: 14 0RF No Action doxycycline monohydrate 100 mg tablet 100 mg PO BID Qty: 20 0RF prednisone 20 mg tablet 40 mg PO DAILY Qty: 10 0RF benzonatate 200 mg capsule 200 mg PO TID PRN (Reason: cough) Qty: 20 0RF azithromycin 250 mg tablet See Rx Instructions .ROUTE .COMPLEX Qty: 6 0RF Rx Instructions: For 250 mg dose pack: take 500 mg today (day 1), then 250 mg for 4 days (days 2-5) prednisone 20 mg tablet 20 mg PO DAILY 5 Days Qty: 5 0RF albuterol sulfate 90 mcg/actuation aerosol powdr breath activated 2 inh inhalation Q4-6H PRN (Reason: shortness of breath) Qty: 1 0RF amoxicillin-pot clavulanate 875-125 mg tablet 1 tab PO BID 7 Days Qty: 14 0RF cefpodoxime 200 mg tablet 200 mg PO BID Qty: 20 0RF Rx Instructions: must administer with a meal/food benzonatate 200 mg capsule 200 mg PO TID PRN (Reason: cough) Qty: 20 0RF prednisone 20 mg tablet 40 mg PO DAILY Qty: 10 0RF doxycycline hyclate 100 mg tablet 100 mg PO BID Qty: 20 0RF prednisone 20 mg tablet 20 mg PO DAILY 7 Days Qty: 7 0RF doxycycline hyclate 100 mg tablet 100 mg PO BID 7 Days Qty: 14 0RF albuterol sulfate 1.25 mg/3 mL solution for nebulization 1.25 mg inhalation QID PRN (Reason: shortness of breath or wheezing) Qty: 90 0RF Referrals: Nani Ling NP [Primary Care Provider] - Interventions: ED Discharge Assessment Last Done: 09/19/22 12:35 Discharge Date/Time: 09/19/22 12:35 Print Language: Ukrainian
--- NOTE | 2022-09-19 07:05 | ECG_ITS ---
Test Reason : cough, sob Blood Pressure : / mmHG Vent. Rate : 075 BPM Atrial Rate : 075 BPM P-R Int : 166 ms QRS Dur : 084 ms QT Int : 396 ms P-R-T Axes : 043 010 028 degrees QTc Int : 442 ms Normal sinus rhythm Normal ECG When compared with ECG of 13-SEP-2022 09:43, No significant change was found Referred By: Megan Carrillo Electronically Signed By:ALBERTO EDGAR MD
--- NOTE | 2022-09-19 07:12 | PC.NURSE ---
assumed care of pt at 0700. pt reports no pain at this time. PCT at bedside doing EKG.
[2022-09-19] MEDS: Albuterol Sulfate 7.5 MG, Albuterol Sulfate (0.083%) 2.5 MG 10 MG INHALE (07:29)
[2022-09-19 07:32] VITALS: PULSE 86; RESP 16; O2SAT 96
[2022-09-19 07:48] VITALS: PULSE 82
[2022-09-19 07:53] LABS: MANUAL DIFF FLAG NO
[2022-09-19 07:55] LABS: Basophils Absolute Auto 0.1 X10*3/uL (0.0-0.2); Basophils Percent Auto 0.4 % (0-2); Eosinophils Absolute Auto 0.1 X10*3/uL (0.0-0.4); Eosinophils Percent Auto 0.9 % (0-4); Hematocrit 37.4 % (37.0-47.0); Hemoglobin 12.3 g/dl (12.0-16.0); Imm Gran Abs Auto 0.09 X10*3/uL (0.00-0.03); Imm Gran Pct Auto 0.8 % (0.0-0.4); Lymphocytes Absolute Auto 4.5 X10*3/uL (1.2-4.9); Lymphocytes Percent Auto 37.7 % (20-40); Mean Corpuscular HGB Conc 32.9 g/dl (31.0-35.0); Mean Corpuscular Hemoglobin 27.8 pg (27.0-33.0); Mean Corpuscular Volume 84.6 fL (80.0-98.0); Mean Platelet Volume 10.1 fL (9.4-12.3); Monocytes Absolute Auto 0.9 X10*3/uL (0.1-1.2); Monocytes Percent Auto 7.5 % (2-11); Neutrophils Absolute Auto 6.3 x10*3/uL (2.0-8.3); Neutrophils Percent Auto 52.7 % (45-73); Platelet Count 292 X10*3/uL (160-400); Red Blood Count 4.42 X10*6/uL (4.20-5.50); Red Cell Distribution Width 15.3 % (11.0-16.0)
[2022-09-19] MEDS: dexAMETHasone sod phosphate 10 MG/ML VIAL IVPUSH (07:55)
--- NOTE | 2022-09-19 07:57 | PC.NURSE ---
20 g LAC, labs drawn, meds given per order, pt reports no pain at this time, PCT at bedside drawing second set of blood cultures.
[2022-09-19 08:05] VITALS: O2SAT 94
[2022-09-19 08:11] LABS: Lactic Acid 0.7 mmol/L (0.5-2.0)
[2022-09-19 08:15] LABS: Alanine Aminotransferase 43 U/L (0-31); Albumin Level 4.7 g/dL (3.5-5.0); Alkaline Phosphatase 68 U/L (39-117); Anion Gap 16 (12-20); Aspartate Amino Transferase 27 U/L (5-31); Bilirubin Total 0.7 mg/dL (0.0-1.0); Blood Urea Nitrogen 18 mg/dL (9-16); Calcium 10.9 mg/dL (8.4-10.2); Carbon Dioxide 22 mmol/L (22-29); Chloride 106 mmol/L (96-108); Creatinine Clr Calc Pharmacy 52.3; Estimated Glomerular Filt Rate > 60; Glucose Random 86 mg/dL (60-115); Magnesium 2.3 mg/dL (1.6-2.6); Potassium 3.1 mmol/L (3.3-5.1); Sodium 141 mmol/L (135-145); Total Protein 7.2 g/dL (6.5-8.0)
[2022-09-19 08:20] LABS: B Type Natriuretic Peptide 37 pg/mL (<100)
[2022-09-19 08:23] LABS: Troponin-I High Sensitivity < 2.7 ng/L (<3.5-17.0)
[2022-09-19 08:25] LABS: IDNOW Serial# BCCEAD1C
[2022-09-19 08:26] LABS: Influenza A Negative (Negative); Influenza B2 Negative (Negative)
[2022-09-19 08:29] LABS: COVID-19 Test Negative (Negative); IDNOW Serial# 08D9AD1C
[2022-09-19] MEDS: Potassium Chloride/H20 10 MEQ/100 ML PIGGYBACK 100 MEQ IV ×2 (09:39→11:00)
[2022-09-19 11:10] VITALS: BP 125/68; PULSE 83; RESP 19; O2SAT 91
== END 2022-09-19 12:35 | disposition home or self-care (01) ==
PROVIDERS: Physician Assistant Medical; Emergency Provider Emergency Medicine Emergency Medical Services; PCP Nurse Practitioner Family
DX: J06.9 Acute upper respiratory infection, unspecified (principal); E87.6 Hypokalemia; Z20.822 Contact with and (suspected) exposure to COVID-19; I10 Essential (primary) hypertension; E78.5 Hyperlipidemia, unspecified; J45.909 Unspecified asthma, uncomplicated; Z79.899 Other long term (current) drug therapy
CPT/HCPCS: 71046; 80053; 83605; 83735; 83880; 84484; 85025; 87040; 87502; 87635; 93005; 94640; 96365; 96366; 96375; 99284; 99285; J1100

== ENCOUNTER → 2022-09-19 07:05 | Outpatient (BNV) | payer MEDICARE, SELFPAY | PROVIDERS: Emergency Provider Emergency Medicine Emergency Medical Services; PCP Nurse Practitioner Family; Visit Provider Internal Medicine Cardiovascular Disease | DX: R06.02 Shortness of breath (principal) | CPT/HCPCS: 93010 ==

== ENCOUNTER 2022-10-13 07:41 | Day surgery (SDC) | payer MEDICARE, SELFPAY ==
[2022-10-13 07:56] VITALS: BMI 28.2
[2022-10-13 08:01] VITALS: BP 130/64; PULSE 88; RESP 16; TEMP 36.5; O2SAT 96
[2022-10-13] MEDS: Sodium Phosphate,Mono-Dibasic 133 ML ENEMA PR (08:10)
--- NOTE | 2022-10-13 08:22 | PC.NURSE ---
Last known potassium 3.1 in ED last month. Patient states my pcp redrew it after the ED and it came back up . Dr. Yeh made aware. Okay to proceed with procedure.
[2022-10-13] MEDS: Lactated Ringers 1,000 ML 100 ML IVCONT (08:28)
--- NOTE | 2022-10-13 09:12 | MHC.SHP ---
Pre-Procedural Eval Section A Date of Service: 10/13/22 Section B Chief Complaint: Encounter for screening for malignant neoplasm of Details of Present Illness: see h&p no changes Relevant Family History (Specify if Yes): No Relevant Social History: None Present Medications: see Short Stay Collaborative assessment Medical History: No relevant PMH History of Previous Operations: No relevant previous surgery Allergies: Allergies Allergy/AdvReac Type Severity Reaction Status Date / Time lisinopril Allergy Severe Difficulty Verified 10/13/22 07:54 Breathing codeine Allergy Intermediate Unconscious Verified 10/13/22 07:54 Review of Systems Sugical H&P ROS: Negative: Constitution, Cardiovascular, Respiratory, Neurological, Psychiatric, Hem-Onc, Allergic/Immunologic, Gastrointestinal, Genitourinary, Musculoskeletal, Integumentary, Endocrine and Eyes/Ears/Nose/Throat Exam Surgical H&P Exam: Normal: HEENT, Normal: Heart, Normal: Lungs, Normal: Extremities, Normal: Abdomen, Normal: Skin and Normal: Neurological Plan Diagnosis/Plan: Unchanged I have reviewed the history and physical and performed a pertinent physical examination on my patient. No changes have occurred unless specified. Time Spent With Patient Time: Total time managing care of this patient today ____ minutes.
--- NOTE | 2022-10-13 09:24 | HO.ANESPROP2 ---
HPI - Anesthesia Eval Consult details Narrative: screening [facility] Past Medical History Medical History (Updated 10/12/22 @ 13:25 by Sara Hanks RN) Acid reflux disease Asthma Basal cell carcinoma Fatty liver HLD (hyperlipidemia) HTN (hypertension) Hyperparathyroidism Osteopenia Pneumonia Family History Family history of problems with anesthesia: No Surgical History Surgical History (Updated 10/13/22 @ 07:53 by Melva Carlton) H/O section H/O colonoscopy H/O parathyroidectomy History of removal of both ovaries Hx of tonsillectomy History of Problems with Anesthesia: No Social History Social History Alcohol intake: never Patient Tobacco Use Status: Never used Tobacco Use of substances other than those prescribed or required for medical reasons: No Are you DNR?: No Advance Directives: No Advance Directives Information Provided: Yes Meds Allergies Allergy/AdvReac Type Severity Reaction Status Date / Time lisinopril Allergy Severe Difficulty Verified 10/13/22 07:54 Breathing codeine Allergy Intermediate Unconscious Verified 10/13/22 07:54 Active Medications: Current Medications Albuterol Sulfate (Albuterol Sulfate (0.083%) 2.5 Mg/3 Ml Vial.Neb) 2.5 mg INHALE ONCE PRN PRN Reason: Shortness of Breath/Wheezing Lactated Ringer's (Lr) 1,000 mls @ 100 mls/hr IVCONT .Q10H IONA Last Admin: 10/13/22 08:28 Dose: 100 mls/hr Sodium Biphosphate/Sodium Phosphate (Sodium Phosphate,Summit-Dibasic 133 Ml Enema) 133 ml DC ONCE PRN PRN Reason: Poor Colonoscopy Prep Results Home Medications Medication Instructions Recorded Confirmed Last Taken Type Fish Oil 1 cap PO DAILY 10/12/22 10/13/22 09/29/22 History albuterol sulfate 1.25 mg/3 mL 1.25 mg inhalation QID PRN wheezing 10/12/22 10/13/22 Unknown History solution for nebulization amlodipine 10 mg tablet 10 mg PO DAILY 10/12/22 10/13/22 Unknown History fluticasone furoate 200 1 ea inhalation DAILY 10/12/22 10/13/22 10/13/22 History mcg-vilanterol 25 mcg/dose inhalation powder (Breo Ellipta) montelukast 10 mg tablet 10 mg PO DAILY 10/12/22 10/13/22 Unknown History omeprazole 20 mg capsule,delayed 20 mg PO DAILY 10/12/22 10/13/22 Unknown History release Exam Exam Date and Time: October 13, 2022923 Height,Weight and Vital Signs: Height 5 ft 2 in Weight 69.853 kg Last Vital Signs Temp 97.7 F 10/13/22 08:01 Pulse 88 10/13/22 08:01 Resp 16 10/13/22 08:01 BP 130/64 10/13/22 08:01 Pulse Ox 96 10/13/22 08:01 O2 Del Method Room Air 10/13/22 08:01 Airway Mallampati Class: I TM Dist: >3cm Neck ROM: Full Loose/Missing/Broken Teeth: No Heart: rr Lungs: cts Assessment and Plan Final Anesthetic Review Family History of Problems with Anesthesia: No History of Problems with Anesthesia: No NPO: Yes ASA Class: II Final Preanesthetic Review: No Changes in Pt Med Stat, Meds/Allgs Chart Reviewed, Consent Obtained/Reviewed and Anes Risks/Benef Reviewed Patient Risk: Low Procedure Risk: Low Anesthetic Plan Anesthetic Plan: MAC: Disposition: Standard PACU
[2022-10-13 09:50] VITALS: BP 95/53; PULSE 76; RESP 16; TEMP 36.4; O2SAT 99
--- NOTE | 2022-10-13 09:55 | P.BOP_ITS ---
Brief Operative Note Date of Service: 10/13/22 Pre-op diagnosis: screening Post-op diagnosis: same Procedure: colonscopy Surgeon: Pako Dickens Anesthesia: MAC Was an Training Mgr used for this Procedure?: No Estimated blood loss (mL): 0 Pathology: other Condition: stable Disposition: PACU
[2022-10-13 10:05] VITALS: BP 103/67; PULSE 86; RESP 16; TEMP 36.4; O2SAT 100
--- NOTE | 2022-10-13 10:25 | OP_ITS ---
DATE OF SERVICE: 10/13/2022 SURGEON: Pako Dickens MD INDICATIONS: Colon cancer screening. PREOPERATIVE DIAGNOSIS: POSTOPERATIVE DIAGNOSIS: PROCEDURE PERFORMED: Colonoscopy to the terminal ileum with snare polypectomy. ESTIMATED BLOOD LOSS: COMPLICATIONS: ANESTHESIA: Monitored anesthesia care. ASSISTANTS: SPECIMENS: DESCRIPTION OF PROCEDURE: A history and physical was performed. The risks and benefits of the procedure were explained to the patient. Informed consent was obtained. The patient was placed in the left lateral decubitus position. A digital rectal exam was performed, and was found to be normal. The Olympus pediatric video colonoscope was introduced in the rectum and advanced to the cecum. The cecum was identified by transillumination, palpation, and identification of ileocecal valve. Examination was performed. The scope was removed. She tolerated the procedure well and was returned to the recovery area in stable condition. FINDINGS: The terminal ileum was examined and appeared normal. The visualized colonic mucosa was normal. There was a single polyp measuring approximately 6 mm which was removed with a hot snare and recovered via suction. No other polyps were identified. There was mild sigmoid diverticulosis. Retroflexed examination showed small internal hemorrhoids. IMPRESSION: Colon polyp. RECOMMENDATION: Follow up the biopsy results. MD CHRISTIAN Arango/CATY / [id number]
== END 2022-10-13 10:20 | disposition home or self-care (01) ==
PROVIDERS: PCP Nurse Practitioner Family; Visit Provider Internal Medicine Gastroenterology
PROC: 0DJD8ZZ Inspection of Lower Intestinal Tract, Via Natural or Artificial Opening Endoscopic (ICD-10-PCS; CPT 45378; principal; 2022-10-13 08:50)
DX: Z12.11 Encounter for screening for malignant neoplasm of colon (principal); D12.5 Benign neoplasm of sigmoid colon; K57.30 Diverticulosis of large intestine without perforation or abscess without bleeding; K64.8 Other hemorrhoids; K76.0 Fatty (change of) liver, not elsewhere classified; Z80.0 Family history of malignant neoplasm of digestive organs; K21.9 Gastro-esophageal reflux disease without esophagitis; I10 Essential (primary) hypertension; J45.909 Unspecified asthma, uncomplicated; E78.5 Hyperlipidemia, unspecified; M85.80 Other specified disorders of bone density and structure, unspecified site; Z79.899 Other long term (current) drug therapy; Z88.8 Allergy status to other drugs, medicaments and biological substances; Z85.828 Personal history of other malignant neoplasm of skin; Z87.01 Personal history of pneumonia (recurrent)
CPT/HCPCS: 45385; 88305

== ENCOUNTER 2023-03-15 13:12 | Outpatient (REF) | payer MEDICARE, SELFPAY ==
--- NOTE | ~2023-03-15 | MM_ITS ---
EXAMINATION: MM SCREENING DIGITAL BREAST TOMOSYNTHESIS, BILATERAL CLINICAL INFORMATION: Screening. Asymptomatic. COMPARISON: Mammography: This study is compared with prior exams dating back to 2017. TECHNIQUE: Digital breast tomosynthesis is performed in both the craniocaudal and mediolateral oblique views along with computer-aided detection (CAD). Synthesized 2D images are generated from the tomosynthesis. FINDINGS: The breasts are almost entirely fatty (ACR BI-RADS breast composition Category a). There are no significant masses, abnormal calcifications, or other abnormalities. MM/MM tomosynthesis screening BI IMPRESSION: No mammographic evidence of malignancy. ASSESSMENT: BI-RADS BI-RADS 1 - Negative RECOMMENDATION: Routine annual mammography screening. 1 year F/U This examination should not preclude the clinical evaluation of a suspicious palpable abnormality. This patient's information was entered into a reminder system with a target due date for their next mammogram.
== END 2023-03-15 13:13 | disposition home or self-care (01) ==
LOC: HO.MAMMO 13:12
PROVIDERS: PCP Nurse Practitioner Family; Visit Provider Nurse Practitioner Family
DX: Z12.31 Encounter for screening mammogram for malignant neoplasm of breast (principal); Z13.820 Encounter for screening for osteoporosis; Z78.0 Asymptomatic menopausal state
CPT/HCPCS: 77063; 77067; 77080

== ENCOUNTER → 2023-03-15 14:00 | Outpatient (BNV) | payer MEDICARE, SELFPAY | PROVIDERS: PCP Nurse Practitioner Family; Visit Provider Radiology Diagnostic Radiology | DX: Z12.31 Encounter for screening mammogram for malignant neoplasm of breast (principal) | CPT/HCPCS: 77063; 77067 ==

== ENCOUNTER 2023-09-30 22:30 | Inpatient (IN) | payer MEDICARE, SELFPAY ==
--- NOTE | 2023-09-30 | ECG_ITS ---
Test Reason : SOB Blood Pressure : / mmHG Vent. Rate : 120 BPM Atrial Rate : 120 BPM P-R Int : 164 ms QRS Dur : 078 ms QT Int : 310 ms P-R-T Axes : 052 032 040 degrees QTc Int : 438 ms Sinus tachycardia Nonspecific ST abnormality Abnormal ECG When compared with ECG of 19-SEP-2022 07:10, Vent. rate has increased BY 45 BPM Referred By: Aura Del Rio Electronically Signed By:YADIRA HELM
--- NOTE | ~2023-09-30 | XR_ITS ---
EXAMINATION: XR CHEST CLINICAL INFORMATION: Dyspnea. COMPARISON: 09/19/2022 TECHNIQUE: Frontal view of the chest was obtained. FINDINGS: Linear opacities at the bases are most consistent with dependent atelectasis. Cardiac and mediastinal contours are normal. No new consolidation, pneumothorax, or pleural effusion. Degenerative disc disease is present in the thoracic spine. No acute osseous findings. XR/XR chest 1V IMPRESSION: Mild bibasilar atelectasis. No acute pulmonary findings.
[2023-09-30 22:37] VITALS: BP 158/92; BP 184/92; PULSE 102; PULSE 107; RESP 21; TEMP 36.7; O2SAT 92; O2SAT 93; BMI 30.2
[2023-09-30 22:53] VITALS: PULSE 107; RESP 18; O2SAT 94
--- NOTE | 2023-09-30 22:59 | ED.SOB ---
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 whom she saw after developing a cough and wheezing s/p trip to [facility] with return home one week ago. She notes yellow sputum, persistent wheezing and difficulty breathing. Her alumina plant supervisor started her on prednisone taper first dose 50mg. She has been using her INH with little relief. EMS found her 92% on RA - on ED arrival she was 90% on RA. She notes no CP. She states she has not had this before or been hospitalized. No known fevers. MD elicited complaint: shortness of breath and cough Pertinent past history: asthma Onset (ago): day(s) (5) Context: recent travel Timing: progressively worsening Severity: moderate Exacerbating factors: exertion and coughing Relieving factors: oxygen, rest and bronchodilators Known history of: asthma Associated symptoms: cough, wheezing and sputum production Treatment prior to arrival: oxygen and bronchodilator Related Data Home Medications ?Medication ?Instructions ?Recorded ?Confirmed Fish Oil 1 cap PO DAILY 10/12/22 10/13/22 albuterol sulfate 1.25 mg/3 mL 1.25 mg inhalation QID PRN wheezing 10/12/22 10/13/22 solution for nebulization amlodipine 10 mg tablet 10 mg PO DAILY 10/12/22 10/13/22 fluticasone furoate 200 1 ea inhalation DAILY 10/12/22 10/13/22 mcg-vilanterol 25 mcg/dose inhalation powder (Breo Ellipta) montelukast 10 mg tablet 10 mg PO DAILY 10/12/22 10/13/22 omeprazole 20 mg capsule,delayed 20 mg PO DAILY 10/12/22 10/13/22 release Allergies Allergy/AdvReac Type Severity Reaction Status Date / Time lisinopril Allergy Severe Difficulty Verified 09/30/23 22:38 Breathing codeine Allergy Intermediate Unconscious Verified 09/30/23 22:38 Review of Systems Review of Systems: Constitutional : No Fever, pos Chills ENT/Mouth : No Hoarseness, No sore throat, No Rhinorrhea Eyes: No Redness, No Discharge, No Vision Changes Cardiovascular : No Chest Pain, positive SOB, positive Dyspnea on Exertion, No Edema Respiratory : positive Cough, pos Sputum, positive Wheezing, Gastrointestinal : No Nausea, No Vomiting, No Diarrhea, No abdominal Pain Genitourinary : No Dysuria, No Hematuria Musculoskeletal : No joint pain, No Myalgias Skin : No rash Neuro : No Weakness, No Numbness, No Headache Psych : No anxiety, depression All other systems reviewed and are negative [facility] Past Medical History Attestation statement: The following information was validated with the patient. Source: old records reviewed Medical History Hyperparathyroidism Fatty liver Pneumonia Osteopenia Acid reflux disease Basal cell carcinoma Asthma HLD (hyperlipidemia) HTN (hypertension) Surgical History H/O parathyroidectomy History of removal of both ovaries H/O section Hx of tonsillectomy H/O colonoscopy Social History Social History Alcohol intake: never Patient Tobacco Use Status: Never used Tobacco Smoked in Last 30 Days: No Use of substances other than those prescribed or required for medical reasons: No Advance Directives: No Advance Directives Information Provided: Yes Do you have a plan to hurt others: No Plan Physical Exam Vital Signs: Vital Signs: Last Vital Signs Temp 97.9 F 10/01/23 00:19 Pulse 101 H 10/01/23 00:19 Resp 18 10/01/23 00:19 BP 145/73 H 10/01/23 00:19 Pulse Ox 92 10/01/23 00:19 O2 Del Method Nasal Cannula 10/01/23 00:19 O2 Flow Rate 1 10/01/23 00:19 Oxygen Flow Rate 2 09/30/23 22:37 BMI result Body Mass Index 30.2 Appearance: Alert. Oriented X3. Mild acute distress. Eyes: Pupils equal, round and reactive to light. ENT: Pharynx normal. Neck: Normal inspection. Neck supple. CVS: tachycardic heart rate and rhythm. Pulses normal. Respiratory: Mild respiratory distress tachypnic and labored Breath sounds diminished in bases with coarse sounds and rhonchi Abdomen: Soft and nontender. Skin: Skin warm and dry. Normal skin color. Normal skin turgor. Extremities: No lower extremity edema. Neuro: Oriented X 3. No motor deficit. No sensory deficit. Course Course Course Narrative: 90% on RA ambulating Medications Administered Generic Name Dose Route Start Last Admin Trade Name Freq PRN Reason Stop Dose Admin Sodium Chloride 500 mls @ 500 mls/hr 09/30/23 23:30 10/01/23 00:01 Ns IV 10/01/23 00:29 500 mls/hr .Q1H IONA Administration Discontinued Medications Generic Name Dose Route Start Last Admin Trade Name Freq PRN Reason Stop Dose Admin Albuterol/Ipratropium 3 ml 09/30/23 22:50 09/30/23 23:08 Albuterol/Iprat 2.5/0.5mg 3 Ml Ampul.Neb INHALE 09/30/23 22:51 3 ml ONCE ONE Administration Benzonatate 100 mg 09/30/23 22:40 09/30/23 23:03 Benzonatate 100 Mg Capsule PO 09/30/23 22:41 100 mg ONCE ONE Administration Ceftriaxone Sodium 1 gm/ 50 mls @ 100 mls/hr 09/30/23 22:40 09/30/23 23:40 Sodium Chloride IV 09/30/23 23:09 Infused ONCE ONE Infusion Methylprednisolone Sodium Succinate 60 mg 09/30/23 22:40 09/30/23 23:03 Methylprednisolone Sod Succ 125 Mg/2 Ml Vial IVPUSH 09/30/23 22:41 60 mg ONCE ONE Administration Medical Decision Making Medical Decision Making [facility] Narrative: 73 yo female with a PMH of HTN, GERD and asthma not on home O2 recently started prednisone taper through her alumina plant supervisor here with worsening cough, sputum production 90% on RA did recently travel to [facility] she has no chest pain to suggest VTE, she has no leg edema to suggest CHF - at this time viral panel, CXR for pneumonia, EKG, labs, IV steroids, bronch protocol and empiric ceftriaxone ordered. If she still has O2 demands and symptoms I am going to admit for further management. Differential Diagnosis Differential Diagnoses: The differential diagnosis associated with the presentation includes asthma, bronchitis, pneumonia Admission/Observation Consideration of admission/observation: Escalation of care including admission/observation considered admit given 90% on RA Consult Healthcare Provider Management of the patient was discussed with: Hospitalist (will admit) Lab Data [facility] Lab Attestation statement: I reviewed the patient's lab results. 09/30/23 22:56 09/30/23 22:56 Labs: Lab Results 09/30/23 09/30/23 Range/Units 22:56 22:59 WBC 13.4 H (4.8-10.8) X10*3/uL RBC 4.67 (4.20-5.50) X10*6/uL Hgb 13.8 (12.0-16.0) g/dl Hct 40.5 (37.0-47.0) % MCV 86.7 (80.0-98.0) fL MCH 29.6 (27.0-33.0) pg MCHC 34.1 (31.0-35.0) g/dl RDW 13.5 (11.0-16.0) % Plt Count 370 D (160-400) X10*3/uL MPV 9.5 (9.4-12.3) fL Immature Gran % (Auto) 1.2 H (0.0-0.4) % Neut % (Auto) 65.0 (45-73) % Lymph % (Auto) 26.6 (20-40) % Daniels % (Auto) 6.8 (2-11) % Eos % (Auto) 0.1 (0-4) % Baso % (Auto) 0.3 (0-2) % Lymph # (Auto) 3.6 (1.2-4.9) X10*3/uL Daniels # (Auto) 0.9 (0.1-1.2) X10*3/uL Eos # (Auto) 0.0 (0.0-0.4) X10*3/uL Baso # (Auto) 0.0 (0.0-0.2) X10*3/uL Abs Immat Gran (auto) 0.16 H (0.00-0.03) X10*3/uL Absolute Neuts (auto) 8.7 H (2.0-8.3) x10*3/uL Absolute Nucleated RBC 0.000 (0.0-0.012) X10*3/uL Nucleated RBC % (auto) 0.0 (0.0-0.2) /100WBC VBG pH 7.46 H (7.32-7.43) VBG pCO2 33 mmHg VBG pO2 48 mmHg VBG HCO3 23 (22-26) mmol/L VBG O2 Saturation 76.0 % VBG Base Excess 0.7 mmol/L Sodium 140 (135-145) mmol/L Potassium 3.9 (3.3-5.1) mmol/L Chloride 103 (96-108) mmol/L Carbon Dioxide 23 (22-29) mmol/L Anion Gap 18 (12-20) BUN 17 H (9-16) mg/dL Creatinine 0.82 (0.5-1.4) mg/dL Estim Creat Clear Calc 57.0 Estimated GFR > 60 Random Glucose 111 (60-115) mg/dL Lactic Acid 2.3 H* (0.5-2.0) mmol/L Calcium 10.4 H (8.4-10.2) mg/dL Magnesium 2.4 (1.6-2.6) mg/dL Total Bilirubin 0.5 (0.0-1.0) mg/dL Direct Bilirubin 0.1 (0.0-0.5) mg/dL AST 23 (5-31) U/L ALT 34 H (0-31) U/L Alkaline Phosphatase 76 (39-117) U/L Troponin I High Sens < 2.7 (<3.5-17.0) ng/L B-Natriuretic Peptide 38 (<100) pg/mL Total Protein 7.9 (6.5-8.0) g/dL Albumin 5.0 (3.5-5.0) g/dL Procalcitonin 0.02 ng/mL Influenza Type A (PCR) NEGATIVE (Negative) Influenza Type B (PCR) NEGATIVE (Negative) RSV RNA Qual (PCR) NEGATIVE (Negative) SARS-CoV-2 RNA (RT-PCR) NEGATIVE (Negative) ABG Data Attestation ABG: I personally reviewed and interpreted this ABG as follows: Interpretation: no retention Independent Interpretation I performed an independent interpretation of an: EKG and Plain X-Ray (patchy area LL) Interpretation: Rate: 120 Rhythm: sinus tachycardia Henderson: normal Normal P waves. Normal PHILLIP. Normal QRS complex. ST T wave : no ENA qTC: 438 prior studies: no acute ischemia The study has been interpreted contemporaneously by me. . Radiology Impression Discussion of test interpretation with radiology: I have reviewed the radiologist's reading. Independent Historian Clinical information obtained from an independent historian. History obtained from or confirmed by: EMS External Record Review External record reviewed: Inpatient record Critical Care Time Critical Care Time Critical Care Time: Yes Total Critical Care Time: 35 Attestation: nebs, review of records, O2 supplementation I attest to this time spent taking care of the patient Discharge Plan Discharge Clinical Impression: Asthma with exacerbation, Bronchitis, Acidosis, lactic Patient Disposition: Admitted As Inpatient Prescriptions: No Action albuterol sulfate 1.25 mg/3 mL solution for nebulization 1.25 mg inhalation QID PRN (Reason: wheezing) amlodipine 10 mg tablet 10 mg PO DAILY omeprazole 20 mg capsule,delayed release(DR/EC) 20 mg PO DAILY montelukast 10 mg tablet 10 mg PO DAILY fluticasone furoate-vilanterol [Breo Ellipta] 200-25 mcg/dose blister with device 1 ea inhalation DAILY Fish Oil 1 cap PO DAILY Print Language: Syrian
[2023-09-30 23:03] LABS: MANUAL DIFF FLAG NO
[2023-09-30] MEDS: methylPREDNISolone Sod Succ 125 MG/2 ML VIAL 60 MG IVPUSH (23:03)
[2023-09-30] MEDS: Benzonatate 100 MG CAPSULE PO (23:03)
[2023-09-30 23:04] LABS: Basophils Percent Auto 0.3 % (0-2); Eosinophils Percent Auto 0.1 % (0-4); Hematocrit 40.5 % (37.0-47.0); Hemoglobin 13.8 g/dl (12.0-16.0); Imm Gran Abs Auto 0.16 X10*3/uL (0.00-0.03); Imm Gran Pct Auto 1.2 % (0.0-0.4); Lymphocytes Absolute Auto 3.6 X10*3/uL (1.2-4.9); Lymphocytes Percent Auto 26.6 % (20-40); Mean Corpuscular HGB Conc 34.1 g/dl (31.0-35.0); Mean Corpuscular Hemoglobin 29.6 pg (27.0-33.0); Mean Corpuscular Volume 86.7 fL (80.0-98.0); Mean Platelet Volume 9.5 fL (9.4-12.3); Monocytes Absolute Auto 0.9 X10*3/uL (0.1-1.2); Monocytes Percent Auto 6.8 % (2-11); Neutrophils Absolute Auto 8.7 x10*3/uL (2.0-8.3); Platelet Count 370 X10*3/uL (160-400); Red Blood Count 4.67 X10*6/uL (4.20-5.50); Red Cell Distribution Width 13.5 % (11.0-16.0); White Blood Count 13.4 X10*3/uL (4.8-10.8)
[2023-09-30 23:06] LABS: Venous Blood Gas Refer to POC result
[2023-09-30 23:07] LABS: VBG Base Excess 0.7 mmol/L; VBG HCO3 23 mmol/L (22-26); VBG pCO2 33 mmHg; VBG pH 7.46 (7.32-7.43); VBG pO2 48 mmHg
[2023-09-30] MEDS: cefTRIAXone sodium 1 GM in 0.9 % Sodium Chloride 50 ML IV (23:07)
[2023-09-30] MEDS: Albuterol/Iprat 2.5/0.5MG 3 ML AMPUL.NEB INHALE (23:08)
[2023-09-30 23:16] LABS: Lactic Acid 2.3 mmol/L (0.5-2.0)
[2023-09-30 23:23] LABS: B Type Natriuretic Peptide 38 pg/mL (<100)
[2023-09-30 23:24] LABS: Alanine Aminotransferase 34 U/L (0-31); Alkaline Phosphatase 76 U/L (39-117); Anion Gap 18 (12-20); Aspartate Amino Transferase 23 U/L (5-31); Bilirubin Direct 0.1 mg/dL (0.0-0.5); Bilirubin Total 0.5 mg/dL (0.0-1.0); Blood Urea Nitrogen 17 mg/dL (9-16); Calcium 10.4 mg/dL (8.4-10.2); Carbon Dioxide 23 mmol/L (22-29); Chloride 103 mmol/L (96-108); Estimated Glomerular Filt Rate > 60; Glucose Random 111 mg/dL (60-115); Magnesium 2.4 mg/dL (1.6-2.6); Potassium 3.9 mmol/L (3.3-5.1); Sodium 140 mmol/L (135-145); Total Protein 7.9 g/dL (6.5-8.0)
[2023-09-30 23:28] LABS: Troponin-I High Sensitivity < 2.7 ng/L (<3.5-17.0)
[2023-09-30 23:39] LABS: Procalcitonin 0.02 ng/mL
[2023-09-30 23:43] LABS: Influenza A PCR NEGATIVE (Negative); Influenza B PCR NEGATIVE (Negative); Resp Syncy Virus RNA Qual PCR NEGATIVE (Negative); SARS COV2 PCR INHOUSE NEGATIVE (Negative)
--- OUTSIDE RECORDS SUMMARY | 2023-09-30 23:43 | XMS_ITS | Patient Health Record ---
Author Organization [facility] Address [address] [place] [address] Care Team Providers Care Story Editor Name Role Phone Anuradha COBURN, Nani Primary Care Provider Pako Schofield Jr Unavailable [phone] 1 ALLERGIES Allergen (clinical drug ingredient) Drug/Non Drug Allergy documented on EMR Reaction Allergy Type Onset Date Status Codeine Phosphate Unknown Drug Allergy Active RESULTS Component Value Reference Range Notes Pathology Reviewed date:11/01/2022 09:04:35 AM Interpretation: Performing Lab:[facility], [address] [place] [id number] Notes/Report: REASON FOR REFERRAL No Information MEDICATIONS Medication SIG (Take, Route, Frequency, Duration) Notes Start Date End Date Status Calcium & Magnesium Carbonates Active amLODIPine Besylate 10 MG 1 tablet Orall y Once a day for 30 day(s) Active Omeprazole Magnesium 20 MG 1 tablet 30 m inutes before morning meal Orally Once a day for 30 day(s) Active Montelukast Sodium 10 MG 1 tablet Orally Once a night Active [place]-3 Fish Oil Act sheila ZyrTEC Allergy 10 MG 1 tablet Orally Once a day Active Breo Ellipta 200-25 MCG/ACT INHALE 1 PUFF BY MOUTH EVERY DAY Inhalation for 30 Active Hair Skin and Nails Formula Active Albuterol Sulfate (2.5 MG/3ML) 0.083% TAKE 3 ML (2.5 MG TOTAL) BY NEBULIZATION EVERY 6 (SIX) HOURS NEEDED. Inhalation for 7 Active Vitamin D3 Active CoQ-10 Active Zinc Active IMMUNIZATIONS Vaccine Route Administration Date Status Comme nts Influenza Unknown 11/10/2021 Administered SOCIAL HISTORY Sex Assigned At : Social History Observation Description Sex Assigned At Unknown PROBLEMS Problem Type ICD Code Onset Dates Problem Status W/U Status Risk SNOMED Code Notes Problem Colon cancer screening (Z12.11) Active confirmed 074381446 Problem Elevated LFTs (R79.89) Active confirmed 300100669 Problem Fatty liver (K76.0) Active confirmed 495458899 Problem Long-term current use of high risk medication other than anticoagulant (Z79.899) Active confirmed 899408892 Encounters Encounter Location Date Provider Diagnosis [facility] [address], [place] [id number] 10/13/2022 Pako Dickens Jr Encounter for screening colonoscopy Z12.11 and Colon polyps K63.5 [facility] [address] [place] [address] 11/01/2022 Pako Dickens Jr ASSESSMENTS Encounter Date Diagnosis Assessment Notes Treatment Notes Treatment Clinical Notes 10/13/2022 Encounter for screening colonoscopy (ICD-10 - Z12.11) 10/13/2022 Colon polyps (ICD-10 - K63.5) PLAN OF TREATMENT Pending Test Test Name Order Date LIVER PROFILE 08/17/2022 LIVER PROFILE 03/16/2022 IRON + IBC (FE) 03/16/2022 FERRITIN 03/16/2022 CBC w/o DIFF 03/16/2022 PROTHROMBIN TIME (PT, INR) 03/16/2022 HEPATITIS A,B,C PROFILE 03/16/2022 MITOCHONDRIAL AB 03/16/2022 SMOOTH MUSCLE ANTIBODIES 03/16/2022 US ABD 08/17/2022 Future Test Test Name Order Date US ABD 11/19/2011 COLONOSCOPY 06/24/2012 COLONOSCOPY 08/17/2022 Next Appt Details Provider Name:Pako sanchez Jr, 10/17/2023 10:20:00 AM, [address], [address], [place], [address], Insurance Providers Payer Name Payer Address Payer Phone Subscriber Number Group Number Insured Name Patient Relationship to Insured Coverage Start Date Coverage End Date [facility] [address] [facility] [phone] [id number] VERO RAPP Self - patient is the insured MEDICAL (GENERAL) HISTORY Medical History History ICD Code basal cell carcinoma asthma reflux disease hypertension hyperlipidema osteopenia pneumonia Fatty liver Colonoscopy 09/20/12, normal, ten-year fo llowup Surgical History Surgery Date(Month/Year) caesarean section tonsillectomy hyperparathyroid surgery overies removed
[2023-10-01] VITALS (11 sets, daily range): BP systolic 127–145; BP diastolic 64–73; PULSE 87–104; RESP 16–22; TEMP 36.5–36.7; O2SAT 91–95; BMI 30.6
[2023-10-01] MEDS: 0.9 % Sodium Chloride 500 ML IV (00:01)
--- NOTE | 2023-10-01 00:59 | P.HPHOSP_ITS ---
History of Present Illness Date of Service: 10/01/23 Chief Complaint: Dyspnea This is a 73-year-old female with pertinent history of asthma not on home oxygen, hypertension, gastroesophageal reflux disease who presents to the emergency department for evaluation of dyspnea. Patient states symptoms started 1 week prior to presentation. Patient recently returned from a from [facility]. She started having cough with clear sputum production and wheezing. Also has been having dyspnea which is worse with exertion. Tried using her home inhaler but minimal relief. Patient saw her polysomnographic technologist 3 days prior to presentation who sent her a prescription of steroids. Patient continued to have symptoms and hence presented to the ER. No fever, chills, chest discomfort, palpitations, abdominal pain, changes in urinary or bowel habits. In the emergency department, patient requiring 2 L supplemental oxygen and wheezing despite multiple DuoNeb treatments. Review of Systems 2 Constitutional: Constitutional: Reports fatigue and Reports malaise Cardiovascular: Cardiovascular: Reports dyspnea on exertion Respiratory: Respiratory: Reports cough, Reports dyspnea on exertion and Reports wheezing Gastrointestinal: Gastrointestinal: Reports no additional gastrointestinal complaints Genitourinary: Genitourinary: Reports no additional female genitourinary complaints Endocrine: Endocrine: Reports fatigue Allergic/Immunologic: Allergic/Immunologic: Reports wheezing [facility] Medical History Hyperparathyroidism Fatty liver Pneumonia Osteopenia Acid reflux disease Basal cell carcinoma Asthma HLD (hyperlipidemia) HTN (hypertension) Surgical History H/O parathyroidectomy History of removal of both ovaries H/O section Hx of tonsillectomy H/O colonoscopy Social History Alcohol intake: never Patient Tobacco Use Status: Never used Tobacco Meds Allergies Allergy/AdvReac Type Severity Reaction Status Date / Time lisinopril Allergy Severe Difficulty Verified 09/30/23 22:38 Breathing codeine Allergy Intermediate Unconscious Verified 09/30/23 22:38 Active Medications: Current Medications Azithromycin 500 mg/ Sodium (Chloride) 250 mls @ 125 mls/hr IV ONCE ONE Stop: 10/01/23 02:02 Home Medications ?Medication ?Instructions ?Recorded ?Confirmed ?Last Taken ?Type Fish Oil 1 cap PO DAILY 08/06/0110/13/22 09/29/22 History albuterol sulfate 1.25 mg/3 mL 1.25 mg inhalation QID PRN wheezing 10/12/22 10/13/22 Unknown History solution for nebulization amlodipine 10 mg tablet 10 mg PO DAILY 10/12/22 10/13/22 Unknown History fluticasone furoate 200 1 ea inhalation DAILY 10/12/22 10/13/22 10/13/22 History mcg-vilanterol 25 mcg/dose inhalation powder (Breo Ellipta) montelukast 10 mg tablet 10 mg PO DAILY 10/12/22 10/13/22 Unknown History omeprazole 20 mg capsule,delayed 20 mg PO DAILY 10/12/22 10/13/22 Unknown History release Physical Exam 2 Vital Signs and Narrative: Vital Signs: Last Vital Signs Temp 97.9 F 10/01/23 00:19 Pulse 101 H 10/01/23 00:19 Resp 18 10/01/23 00:19 BP 145/73 H 10/01/23 00:19 Pulse Ox 92 10/01/23 00:19 O2 Del Method Nasal Cannula 10/01/23 00:19 O2 Flow Rate 1 10/01/23 00:19 Oxygen Flow Rate 2 09/30/23 22:37 BMI result Body Mass Index 30.2 Elderly female lying in bed in mild distress on supplemental oxygen Neck supple, no JVD Regular rate and rhythm, S1-S2 heard Bilateral wheezing appreciated Abdomen soft nontender, no guarding, no rigidity Patient is awake, alert and oriented to self, place, time and person ; no focal motor deficit Psych: Normal mood No pedal edema Results Labs 09/30/23 22:56 09/30/23 22:56 Labs: Laboratory Results - last 24 hr 09/30/23 09/30/23 22:56 22:59 MCV 86.7 MCH 29.6 MCHC 34.1 RDW 13.5 Plt Count 370 D MPV 9.5 Immature Gran % (Auto) 1.2 H Neut % (Auto) 65.0 Lymph % (Auto) 26.6 Dillon % (Auto) 6.8 Eos % (Auto) 0.1 Baso % (Auto) 0.3 Lymph # (Auto) 3.6 Dillon # (Auto) 0.9 Eos # (Auto) 0.0 Baso # (Auto) 0.0 Abs Immat Gran (auto) 0.16 H Absolute Neuts (auto) 8.7 H Absolute Nucleated RBC 0.000 Nucleated RBC % (auto) 0.0 VBG pH 7.46 H VBG pCO2 33 VBG pO2 48 VBG HCO3 23 VBG O2 Saturation 76.0 VBG Base Excess 0.7 Anion Gap 18 Estim Creat Clear Calc 57.0 Estimated GFR > 60 Random Glucose 111 Lactic Acid 2.3 H* Calcium 10.4 H Magnesium 2.4 Total Bilirubin 0.5 Direct Bilirubin 0.1 AST 23 ALT 34 H Alkaline Phosphatase 76 Troponin I High Sens < 2.7 B-Natriuretic Peptide 38 Total Protein 7.9 Albumin 5.0 Procalcitonin 0.02 Influenza Type A (PCR) NEGATIVE Influenza Type B (PCR) NEGATIVE RSV RNA Qual (PCR) NEGATIVE SARS-CoV-2 RNA (RT-PCR) NEGATIVE Assessment and Plan (1) Asthma with exacerbation: Qualifiers: Asthma persistence: persistent Asthma severity: moderate Qualified Code(s): J45.41 - Moderate persistent asthma with (acute) exacerbation Status: Acute Plan This is a 73-year-old female with pertinent history of asthma not on home oxygen, hypertension, gastroesophageal reflux disease who presents to the emergency department for evaluation of dyspnea. #. Acute hypoxemic respiratory failure due to acute exacerbation of asthma: Will admit patient with supplemental oxygen. Initiating systemic steroids. Scheduled and p.r.n. DuoNebs. Continue home inhaler. Tachycardia and tachypnea due to asthma. No sepsis and no concern for bacterial superinfection. No infiltrate on imaging and procalcitonin level low. Viral respiratory panel pending. #. Acute lactic acidosis due to hypoxia and albuterol use #. Leukocytosis, reactive due to steroids #. Hypertension: Continue home antihypertensives #. Gastroesophageal reflux disease: On PPI Med rec pending DVT prophylaxis: Lovenox Full code Admit as inpatient and will require two night minimum hospital stay for supplemental oxygen (as above), which is not possible in a lesser acute setting. Quality Stroke Does the patient have a stroke diagnosis?: No VTE Prior VTE?: No VTE Risk Level:: Medical - moderate - high VTE Device Contraindication: Treatment Not Indicated VTE Drug Contraindication: N/A - Med Ordered
[2023-10-01] MEDS: Azithromycin 500 MG in 0.9 % Sodium Chloride 250 ML 125 MG IV (01:00)
[2023-10-01 01:01] LABS: Reflex Lactate? Lactic Acid Added
--- OUTSIDE RECORDS SUMMARY | 2023-10-01 01:04 | XMS_ITS | Patient Health Record ---
Author Organization [facility] Address [address] [place] [address] Care Team Providers Care Bindery Production Manager Name Role Phone Anuradha COBURN, Nani Primary Care Provider Pako Schofield Jr Unavailable ALLERGIES Allergen (clinical drug ingredient) Drug/Non Drug Allergy documented on EMR Reaction Allergy Type Onset Date Status Codeine Phosphate Unknown Drug Allergy Active RESULTS Component Value Reference Range Notes Pathology Reviewed date:11/01/2022 09:04:35 AM Interpretation: Performing Lab:[facility], [address] [place] [id number] Notes/Report: REASON FOR REFERRAL No Information MEDICATIONS [...] 1 tablet Orally Once a night Active [place]-3 Fish Oil Act sheila ZyrTEC Allergy 10 [...] Problem Colon cancer screening (Z12.11) Active confirmed 936245101 Problem Elevated LFTs (R79.89) Active confirmed 574106844 Problem Fatty liver (K76.0) Active confirmed 146308930 Problem Long-term current use of high risk medication other than anticoagulant (Z79.899) Active confirmed 335665422 Encounters Encounter Location Date Provider Diagnosis [facility] Outpatient [address], [place] [id number] 10/13/2022 Pako Dickens Jr Encounter for screening colonoscopy Z12.11 and Colon polyps K63.5 [facility] [address] [place] [address] 11/01/2022 Pako Dickens Jr ASSESSMENTS Encounter Date [...] Name:Pako sanchez Jr, 10/17/2023 10:20:00 AM, [address], [address], [place], [address], Insurance Providers Payer Name Payer Address Payer Phone Subscriber Number Group Number Insured Name Patient Relationship to Insured Coverage Start Date Coverage End Date [facility] [address] [facility] [phone] [id number] VERO RAPP Self - patient is the insured MEDICAL (GENERAL) HISTORY Medical History History ICD Code basal cell carcinoma asthma reflux disease hypertension hyperlipidema osteopenia pneumonia Fatty liver Colonoscopy 09/20/12, normal, ten-year fo [facility] Surgical History Surgery Date(Month/Year) caesarean section tonsillectomy hyperparathyroid surgery overies removed
[2023-10-01 01:25] LABS: ~Lactic Acid-LAB USE ONLY 0.8 mmol/L (0.5-2.0)
[2023-10-01] MEDS: Enoxaparin Sodium 40 MG/0.4 ML SYRINGE SUBCUT (02:58)
[2023-10-01 04:57] LABS: MANUAL DIFF FLAG NO
[2023-10-01 04:58] LABS: Basophils Percent Auto 0.2 % (0-2); Hematocrit 38.9 % (37.0-47.0); Hemoglobin 13.4 g/dl (12.0-16.0); Imm Gran Abs Auto 0.15 X10*3/uL (0.00-0.03); Lymphocytes Absolute Auto 1.6 X10*3/uL (1.2-4.9); Lymphocytes Percent Auto 10.3 % (20-40); Mean Corpuscular HGB Conc 34.4 g/dl (31.0-35.0); Mean Corpuscular Hemoglobin 29.3 pg (27.0-33.0); Mean Corpuscular Volume 84.9 fL (80.0-98.0); Mean Platelet Volume 9.4 fL (9.4-12.3); Monocytes Absolute Auto 0.3 X10*3/uL (0.1-1.2); Neutrophils Absolute Auto 13.2 x10*3/uL (2.0-8.3); Neutrophils Percent Auto 86.5 % (45-73); Platelet Count 351 X10*3/uL (160-400); Red Blood Count 4.58 X10*6/uL (4.20-5.50); Red Cell Distribution Width 13.3 % (11.0-16.0); White Blood Count 15.3 X10*3/uL (4.8-10.8)
[2023-10-01 05:13] LABS: Anion Gap 16 (12-20); Blood Urea Nitrogen 15 mg/dL (9-16); Calcium 9.9 mg/dL (8.4-10.2); Carbon Dioxide 21 mmol/L (22-29); Chloride 107 mmol/L (96-108); Creatinine Clr Calc Pharmacy 62.3; Estimated Glomerular Filt Rate > 60; Glucose Random 150 mg/dL (60-115); Potassium 3.4 mmol/L (3.3-5.1); Sodium 141 mmol/L (135-145)
--- NOTE | 2023-10-01 05:29 | PC.NURSE ---
Patient resting with her eyes closed, breathing even and unlabored, RR 14, not in acute distress, call butler in patient's reach, plan of care ongoing.
[2023-10-01] MEDS: Albuterol/Iprat 2.5/0.5MG 3 ML AMPUL.NEB INHALE ×4 (07:40→20:21)
[2023-10-01] MEDS: 0.9 % Sodium Chloride Flush 3 ML SYRINGE IVFLUSH ×3 (08:06→21:15)
[2023-10-01] MEDS: predniSONE 20 MG TABLET 40 MG PO (08:12)
[2023-10-01] MEDS: amLODIPine Besylate 10 MG TABLET PO (08:12)
[2023-10-01] MEDS: Omeprazole 20 MG CAPSULE.DR PO (08:12)
[2023-10-01] MEDS: Montelukast Sodium 10 MG TABLET PO (08:12)
--- NOTE | 2023-10-01 08:33 | PHA.MEDREC ---
Pharmacy Consult ? Medication Reconciliation Pharmacy has completed the medication reconciliation. Spoke to patient and confirmed medication list. For prednisone, yesterday (09/30/23) pt took 40 mg and today (10/01/23) pt is supposed to start 30 mg qd for 2 days. Patient said the 2 inhalers that she uses are albuterol and Symbicort.
--- NOTE | 2023-10-01 09:45 | P.EN_ITS ---
Event Note Date of Service: 10/01/23 Event Note: 73-year-old female with history of mild persistent asthma, not on home oxygen, hypertension, GERD who presented to [facility] with symptoms of shortness of breaths 2-3 days associated with cough productive of clear phlegm and wheeze denies associated fever chills recently returned from [facility], seen by her etiology teacher couple days ago and was given a prescription of steroids to home inhalers with no relief was also exposed to Curry with strong fragrance that initiated the symptoms of cough and shortness of breath likely asthma exacerbation due to allergies, chest x-ray showed mild bibasilar atelectasis no acute pulmonary findings. Patient admitted to [facility] for following. This morning feeling better still complaining of mild dyspnea Awake alert x3 no acute distress no use of accessory muscles Lungs few scattered expiratory wheeze Extremities no edema. #. Acute hypoxemic respiratory failure due to acute exacerbation of mild persistent asthma likely due to allergies: Continue Scheduled and p.r.n. DuLukasbs, change oral prednisone to IV Solu Medrol, add Claritin 10 mg daily, resume Singulair Tachycardia and tachypnea due to asthma. No sepsis and no concern for bacterial superinfection, procalcitonin level low. Viral respiratory panel pending. Wean oxygen as tolerated not on home O2 #. Acute lactic acidosis due to hypoxia and albuterol use #. Leukocytosis, reactive due to steroids #. Hypertension: On Norvasc 10 mg #. Gastroesophageal reflux disease: On PPI DVT prophylaxis: Lovenox Full code Admit as inpatient and will require two night minimum hospital stay for supplemental oxygen (as above), which is not possible in a lesser acute setting. Time Spent With Patient Time: Total time managing care of this patient today ____ minutes.
[2023-10-01 11:03] LABS: Adenovirus PCR Not Detected (Not Detect.); Bordetella parapertussis PCR Not Detected (Not Detect.); Bordetella pertussis PCR Not Detected (Not Detect.); Chlamydia pneumoniae PCR Not Detected (Not Detect.); Coronavirus 229E PCR Not Detected (Not Detect.); Coronavirus HKU1 PCR Not Detected (Not Detect.); Coronavirus NL63 PCR Not Detected (Not Detect.); Coronavirus OC43 PCR Not Detected (Not Detect.); Human metapneumovirus PCR Not Detected (Not Detect.); Influenza A PCR Not Detected (Not Detect.); Influenza B PCR Not Detected (Not Detect.); Mycoplasma pneumoniae PCR Not Detected (Not Detect.); Parainfluenza 1 PCR Not Detected (Not Detect.); Parainfluenza 2 PCR Not Detected (Not Detect.); Parainfluenza 3 PCR Detected (Not Detect.); Parainfluenza 4 PCR Not Detected (Not Detect.); RSV PCR Not Detected (Not Detect.); Rhino/Enterovirus PCR Not Detected (Not Detect.)
[2023-10-01] MEDS: Loratadine 10 MG TABLET PO (11:39)
[2023-10-01] MEDS: Benzonatate 100 MG CAPSULE 200 MG PO ×2 (11:52→21:15)
[2023-10-01 13:55] LABS: SARS-CoV-2 PCR Not Detected (Not Detect.)
[2023-10-01] MEDS: methylPREDNISolone Sod Succ 40 MG/ML VIAL 30 MG IVPUSH (21:15)
[2023-10-02] MEDS: Enoxaparin Sodium 40 MG/0.4 ML SYRINGE SUBCUT (00:50)
[2023-10-02 04:00] VITALS: BP 150/74; PULSE 93; RESP 18; TEMP 36.4; O2SAT 93
[2023-10-02] MEDS: Omeprazole 20 MG CAPSULE.DR PO (05:21)
[2023-10-02 07:34] LABS: Glucose, Whole Blood 115 mg/dL (60-115)
[2023-10-02 08:00] VITALS: BP 144/74; PULSE 92; RESP 18; TEMP 36.4; O2SAT 93
[2023-10-02] MEDS: Albuterol/Iprat 2.5/0.5MG 3 ML AMPUL.NEB INHALE ×2 (08:25→11:28)
[2023-10-02 08:26] VITALS: PULSE 93; RESP 16; O2SAT 95
[2023-10-02] MEDS: methylPREDNISolone Sod Succ 40 MG/ML VIAL 30 MG IVPUSH (08:49)
[2023-10-02 08:50] VITALS: BP 144/74
[2023-10-02] MEDS: amLODIPine Besylate 10 MG TABLET PO (08:50)
[2023-10-02] MEDS: Loratadine 10 MG TABLET PO (08:50)
[2023-10-02] MEDS: Montelukast Sodium 10 MG TABLET PO (08:50)
[2023-10-02] MEDS: 0.9 % Sodium Chloride Flush 3 ML SYRINGE IVFLUSH (08:50)
[2023-10-02] MEDS: Cholecalciferol (Vitamin D3) 25 MCG TABLET 125 MCG PO (08:50)
--- NOTE | 2023-10-02 09:29 | MHC.CM.PN ---
Addendum entered by Becky Daniel RN 10/02/23 12:32: Patient medically cleared for dc home self care. is at bedside to transport. RN aware. Original Note: [facility]MM DELIVERED PATIENT LIVES IN AN APT W/ . FUNCTIONALLY INDEPENDENT. DENIES USE OF DME OR SERVICES. PCP MARY ANN ASTORGA PATIENT REPORTS SHE HAS AN HCP NAMING [facility]. COPY REQUESTED. DP: GOAL IS HOME SELF CARE. DO NOT ANTICIPATE THE NEED FOR SERVICES. TO TRANSPORT. CM WILL CONTINUE TO FOLLOW.
[2023-10-02] MEDS: Benzonatate 100 MG CAPSULE 200 MG PO (11:03)
[2023-10-02 11:30] VITALS: PULSE 93; RESP 18; O2SAT 92
--- NOTE | 2023-10-02 12:11 | P.DS_ITS ---
DS: Providers Provider Date of Service: 10/02/23 Date of admission: 10/01/23 00:57 Primary care physician: GAURI Gtz DS: Diagnosis Discharge Diagnosis (1) Asthma with exacerbation: Status: Acute DS: Summary Hospital Course Hospital Course: History presenting illness: Date of Service: 10/01/23 Chief Complaint: Dyspnea This is a 73-year-old female with pertinent history of asthma not on home oxygen, hypertension, gastroesophageal reflux disease who presents to the emergency department for evaluation of dyspnea. Patient states symptoms started 1 week prior to presentation. Patient recently returned from a from [facility]. She started having cough with clear sputum production and wheezing. Also has been having dyspnea which is worse with exertion. Tried using her home inhaler but minimal relief. Patient saw her human resources hr representative 3 days prior to presentation who sent her a prescription of steroids. Patient continued to have symptoms and hence presented to the ER. No fever, chills, chest discomfort, palpitations, abdominal pain, changes in urinary or bowel habits. In the emergency department, patient requiring 2 L supplemental oxygen and wheezing despite multiple DuoNeb treatments. Hospital course: Admitted with a diagnosis Acute hypoxemic respiratory failure due to acute exacerbation of mild persistent asthma treated with Scheduled and p.r.n. DuoNebs, IV Solu Medrol, Claritin 10 mg daily, , And home inhalers respiratory viral panel came back positive for parainfluenza, patient responded well to above treatment, currently finger oximetry 94% on room air therefore being discharged home with recommendations to continue home in halers rest take cough medications and prednisone 20 mg daily for 3 days followed by 10 mg daily for 3 days , tachycardia and tachypnea due to asthma resolved, also noted to have acute lactic acidosis due to hypoxia and albuterol use and not due to sepsis. In regard to chronic medical issues including hypertension and GERD continue home medication. Time Attestation Discharge Coordination Time (in mins): 34 Quality: Safe Use of Opioids Does Pt have an Active Cancer Diagnosis on the Problem List?: No Quality: Stroke Does the patient have a stroke diagnosis?: No Physical Exam Vital Signs: Vital Signs: Last Vital Signs Temp 97.5 F 10/02/23 08:00 Pulse 93 10/02/23 11:30 Resp 18 10/02/23 11:30 BP 144/74 H 10/02/23 08:50 Pulse Ox 93 10/02/23 08:00 O2 Del Method Nasal Cannula 10/02/23 08:00 O2 Flow Rate 1.0 10/02/23 08:00 Oxygen Flow Rate 2 09/30/23 22:37 BMI result Body Mass Index 30.6 Const: Other: General in no acute distress. Neck no JVD. CVS regular rate rhythm, Respiratory lungs clear to auscultation, no respiratory distress, no wheeze, no rhonchi. Gastrointestinal abdomen soft, non tender, bowel sounds audible, no no guarding , no rigidity. Extremities no edema. Neuro non focal Skin no rash Appropriate affect DS: Data Data Completed and Pending Labs on day of discharge: Laboratory Results - last 24 hr 10/01/23 10/02/23 00:01 07:30 POC Glucose 115 Respiratory Panel Stokes See Note Adenovirus (Rapid PCR) Not Detected B.pert (TEM-PCR) Not Detected B.parapertussis DNA PCR Not Detected C. pneumoniae DNA (PCR) Not Detected Coronavirus OC43 (PCR) Not Detected Coronavirus HKU1 (PCR) Not Detected Coronavirus 229E (PCR) Not Detected Coronavirus NL63 (PCR) Not Detected Human Metapneumovir PCR Not Detected Influenza A (RT-PCR) Not Detected Influenza B (RT-PCR) Not Detected M. pneumoniae (PCR) Not Detected Parainfluenza 1 (PCR) Not Detected Parainfluenza 2 (PCR) Not Detected Parainfluenza 3 (PCR) Detected A Parainfluenza 4 (PCR) Not Detected RSV (PCR) Not Detected Entero/Rhino (PCR) Not Detected SARS-CoV-2 RNA (RT-PCR) Not Detected Preliminary micro results at discharge 09/30/23 22:59 Blood Culture - Preliminary Blood - Venous No growth after 24 hours. 09/30/23 22:59 Blood Culture - Preliminary Blood - Venous No growth after 24 hours. Discharge Plan Discharge Anticipated Discharge Date/Time: 10/02/23 12:10 Patient Disposition: Home, Self-Care Discharge Diagnosis: Acute asthma exacerbation due to parainfluenza Referrals: Lauar Mays FNP [Primary Care Provider] - 1 Week Discharge Medications: Continued albuterol sulfate 1.25 mg/3 mL solution for nebulization 1.25 mg inhalation QID PRN (Reason: wheezing) amlodipine 10 mg tablet 10 mg PO DAILY omeprazole 20 mg capsule,delayed release(DR/EC) 20 mg PO DAILY montelukast 10 mg tablet 10 mg PO DAILY omega 3-niq-hbe-fish oil [Fish Oil] 1,000 mg (120 mg-180 mg) Capsule 1 cap PO DAILY albuterol sulfate 90 mcg/actuation HFA aerosol inhaler 2 puff INHALATION Q4H PRN (Reason: Wheezing) budesonide-formoterol [Symbicort] 160-4.5 mcg/actuation HFA aerosol inhaler 2 puff inhalation BID cholecalciferol (vitamin D3) [Vitamin D3] 125 mcg (5,000 unit) Tablet 125 mcg PO DAILY prednisone 10 mg tablet 40 mg PO DAILY Rx Instructions: 40 mg qd for 2 days, 30 mg qd for 2 days, 20 mg qd for 2 days, 10 mg qd for 2 days Discharge Orders: Discharge Order (Routine); Ordered 10/02/23 Ordered By: Wally Dodge Diet: Advance to usual diet Activity on Discharge: As tolerated Stand Alone Forms: Patient Portal Discharge page Print Language: Greek Care Plan Goals: Take prednisone 20 mg daily for 3 days, then 10 mg by mouth daily 3 days Take cough medication as needed, rest, cover face with coughing and sneezing. Continue home inhalers Health Concerns: Good blood pressure control Plan of Treatment: Outpatient follow-up with primary care physician call for appointment Assessment: As above
[2023-10-02 13:03] VITALS: O2SAT 94
== END 2023-10-02 14:02 | disposition home or self-care (01) | DRG 202 ==
LOC: HO.ED 10-01 00:24 → HO.EDOVER 10-01 01:02 → HO.S3 10-01 08:29
PROVIDERS: Admitting Provider Student in an Organized Health Care Education/Training Program; Emergency Provider Emergency Medicine; PCP Nurse Practitioner Family; Visit Provider Hospitalist
DX: J45.41 Moderate persistent asthma with (acute) exacerbation (principal); J96.01 Acute respiratory failure with hypoxia; E87.21 Acute metabolic acidosis; B34.8 Other viral infections of unspecified site; K21.9 Gastro-esophageal reflux disease without esophagitis; I10 Essential (primary) hypertension; Z20.822 Contact with and (suspected) exposure to COVID-19; Z79.52 Long term (current) use of systemic steroids; Z79.899 Other long term (current) drug therapy
CPT/HCPCS: 0241U; 36415; 71045; 80048; 80076; 82803; 82947; 83605; 83735; 83880; 84145; 84484; 85025; 87040; 87070; 87077; 87205; 87633; 93005; 94640; 99285; J0456; J0696; J1650; J2919

== ENCOUNTER → 2023-09-30 22:36 | Outpatient (BNV) | payer MEDICARE, SELFPAY | PROVIDERS: Admitting Provider Student in an Organized Health Care Education/Training Program; Emergency Provider Emergency Medicine; PCP Nurse Practitioner Family; Visit Provider Internal Medicine | DX: R00.0 Tachycardia, unspecified (principal); R94.31 Abnormal electrocardiogram [ECG] [EKG] | CPT/HCPCS: 93010 ==

== ENCOUNTER → 2023-10-01 00:57 | Outpatient (BNV) | payer MEDICARE, SELFPAY | PROVIDERS: Admitting Provider Student in an Organized Health Care Education/Training Program; Emergency Provider Emergency Medicine; PCP Nurse Practitioner Family; Visit Provider Student in an Organized Health Care Education/Training Program | DX: J96.01 Acute respiratory failure with hypoxia (principal); J45.41 Moderate persistent asthma with (acute) exacerbation | CPT/HCPCS: 99222; 99239; 99499 ==

== ENCOUNTER 2024-01-10 09:14 | Inpatient (IN) | payer MEDICARE, SELFPAY ==
[2024-01-10] VITALS (10 sets, daily range): BP systolic 127–143; BP diastolic 61–71; PULSE 76–114; RESP 16–22; TEMP 36.6–37.1; O2SAT 87–9294
--- NOTE | ~2024-01-10 | XR_ITS ---
EXAMINATION: XR CHEST CLINICAL INFORMATION: Wheezing COMPARISON: X-ray dated September 30, 2023. TECHNIQUE: 2 views of the chest were obtained. FINDINGS: No consolidation, pleural effusion or pneumothorax. Low lung volume. Linear opacities left lower lung lobe, left basal. Cardiomediastinal silhouette is unchanged with calcified plaque aortic arch. Multilevel thoracic spondylosis. Osteopenia versus osteoporosis. XR/XR chest 2V IMPRESSION: Subsegmental atelectasis versus scarring, left lung base. Electronically signed by: Emeka King MD 01/10/2024 10:01 AM EDT
--- OUTSIDE RECORDS SUMMARY | 2024-01-10 09:48 | XMS_ITS | Patient Health Record ---
Author Organization [facility] Address [address] [place] [address] Care Team Providers Care Tablet Repair Name Role Phone WALDEMAR BROTHERS Primary Care Provider Unavail able Pako Dickens Jr Unavailable [phone] ALLERGIES Allergen (clinical drug ingredient) Drug/Non Drug Allergy documented on EMR Reaction Allergy Type Onset Date Status Codeine Phosphate Unknown Drug Allergy Active REASON FOR REFERRAL No Information MEDICATIONS Medication SIG (Take, Route, Frequency, Duration) Notes Start Date End Date Status Vitamin D3 Active Hair Skin and Nails Formula Active Albuterol Sulfate (2.5 MG/3ML) 0.083% TAKE 3 ML (2.5 MG TOTAL) BY NEBULIZATION EVERY 6 (SIX) HOURS NEEDED. Inhalation for 7 Active Zinc Active CoQ-10 Active Dawson-3 Fish Oil Act sheila Montelukast Sodium 10 MG 1 tablet Orally Once a night Active Symbicort 80-4.5 MCG/ACT 1 puff as neede d Inhalation every 4 hrs Active ZyrTEC Allergy 10 MG 1 tablet Orally Once a day Active Calcium & Magnesium Carbonates Active Omeprazole Magnesium 20 MG 1 tablet 30 m inutes before morning meal Orally Once a day for 30 day(s) Active amLODIPine Besylate 10 MG 1 tablet Orall y Once a day for 30 day(s) Active IMMUNIZATIONS Vaccine Route Administration Date Status Comme nts Influenza Unknown 11/10/2021 Administered Influenza Unknown 01/30/2023 Administered SOCIAL HISTORY Sex Assigned At : Social History Observation Description Sex Assigned At Unknown PROBLEMS Problem Type ICD Code Onset Dates Problem Status W/U Status Risk SNOMED Code Notes Problem Colon cancer screening (Z12.11) Active confirmed 253657701 Problem Elevated LFTs (R79.89) Active confirmed 376790214 Problem Fatty liver (K76.0) Active confirmed 19 8801770 Problem Long-term current use of high risk medication other than anticoagulant (Z79.899) Active confirmed 288503492 Problem Gastroesophageal reflux disease, unspecified whether esophagitis present (K21.9) Active confirmed 361158770 VITAL SIGNS Temperature 97.7 degrees Fahrenheit 10/17/2023 Blood pressure diastolic 00 mm Hg 10/17/2023 Height 63 in 10/17/2023 Blood pressure systolic 000 mm Hg 10/17/2023 Weight 165 lbs 10/17/2023 BMI 29.23 kg/m2 10/17/2023 Encounters Encounter Location Date Provider Diagnosis [facility] [address] [place] [address] 10/17/2023 Pako Dickens Jr Fatty liver K76.0 ; Gastroesophageal reflux disease, unspecified whether esophagitis present K21.9 and Colon cancer screening Z12.11 ASSESSMENTS Encounter Date Diagnosis Assessment Notes Treatment Notes Treatment Clinical Notes 10/17/2023 Fatty liver (ICD-10 - K76.0) labs to be done in mar/10/17/2023 Gastroesophageal ref lux disease, unspecified whether esophagitis present (ICD-10 - K21.9) 10/17/2023 Colon cancer screeni ng (ICD-10 - Z12.11) PLAN OF TREATMENT Pending Test Test Name Order Date LIVER PROFILE 08/17/2022 LIVER PROFILE 03/16/2022 LIVER PROFILE 10/17/2023 IRON + IBC (FE) 03/16/2022 FERRITIN 03/16/2022 CBC w/o DIFF 03/16/2022 PROTHROMBIN TIME (PT, INR) 03/16/2022 HEPATITIS A,B,C PROFILE 03/16/2022 MITOCHONDRIAL AB 03/16/2022 SMOOTH MUSCLE ANTIBODIES 03/16/2022 US ABD 08/17/2022 Liver Fibrosis Pnl 10/17/2023 Future Test Test Name Order Date US ABD 11/19/2011 COLONOSCOPY 06/24/2012 COLONOSCOPY 08/17/2022 Next Appt Details Provider Name:Pako sanchez Jr, 10/15/2024 10:50:00 AM, [address], [address], [place], [address], Insurance Providers Payer Name Payer Address Payer Phone Subscriber Number Group Number Insured Name Patient Relationship to Insured Coverage Start Date Coverage End Date [facility] [address] [place] [phone] [id number] VERO RAPP Self - patient is the insured MEDICAL (GENERAL) HISTORY Medical History History ICD Code basal cell carcinoma asthma reflux disease hypertension hyperlipidema osteopenia pneumonia Fatty liver Colonoscopy 09/20/12, normal[facility] Surgical History Surgery Date(Month/Year) caesarean section tonsillectomy hyperparathyroid surgery Oophorectomy Hospitalization History Reason Date(Month/Year) Asthma/ Parainfluenza exacerbation 10/02
--- OUTSIDE RECORDS SUMMARY | 2024-01-10 09:48 | XMS_ITS ---
Author Organization [facility] Address [address] [place] [address] Care Team Providers Care Set Builder Name Role Phone WALDEMAR BROTHERS Primary Care Provider Pako Hdz Jr Unavailable [phone] REASON FOR VISIT SCREENING COLON Encounters Encounter Location Date Provider Diagnosis [facility] Outpatient [address] [place] [phone] 10/13/2022 Pako Dickens Jr Encounter for screening colonoscopy Z12.11 and Colon polyps K63.5 ASSESSMENTS Encounter Date Diagnosis Assessment Notes Treatment Notes Treatment Clinical Notes 10/13/2022 Encounter for screening colonoscopy (ICD-10 - Z12.11) 10/13/2022 Colon polyps (ICD-10 - K63.5) PLAN OF TREATMENT Next Appt Details Provider Name:Pako sanchez Jr, 10/15/2024 10:50:00 AM, [address] [place] [address], [address], [place], [address],
--- OUTSIDE RECORDS SUMMARY | 2024-01-10 09:48 | XMS_ITS ---
Author Organization [facility] Address [address] [place] [address] Care Team Providers Care Bean Sprout Laborer Name Role Phone WALDEMAR BROTHERS Primary Care Provider Unavail able Pako Dickens Jr Unavailable [phone] ALLERGIES Allergen (clinical drug ingredient) Drug/Non Drug Allergy documented on EMR Reaction Allergy Type Onset Date Status Codeine Phosphate Unknown Drug Allergy Active REASON FOR VISIT Patient presents today for an ELEVATED LIVER FUNCTION MEDICATIONS Medication SIG (Take, Route, Frequency, Duration) Notes Start Date End Date Status Albuterol Sulfate (2.5 MG/3ML) 0.083% TAKE 3 ML (2.5 MG TOTAL) BY NEBULIZATION EVERY 6 (SIX) HOURS NEEDED. Inhalation for 7 Active [place]-3 Fish Oil Act sheila Montelukast Sodium 10 MG 1 tablet Orally Once a night Active ZyrTEC Allergy 10 MG 1 tablet Orally Once a day Active Zinc Active CoQ-10 Active Calcium & Magnesium Carbonates Active Omeprazole Magnesium 20 MG 1 tablet 30 m inutes before morning meal Orally Once a day for 30 day(s) Active amLODIPine Besylate 10 MG 1 tablet Orall y Once a day for 30 day(s) Active Vitamin D3 Active Hair Skin and Nails Formula Active Symbicort 80-4.5 MCG/ACT 1 puff as neede d Inhalation every 4 hrs Active PROBLEMS Problem Type ICD Code Onset Dates Problem Status W/U Status Risk SNOMED Code Notes Problem Gastroesophageal reflux disease, unspecified whether esophagitis present (K21.9) Active confirmed 720802485 VITAL SIGNS BMI 29.23 kg/m2 10/17/2023 Blood pressure systolic 000 mm Hg 10/17/19 24 Blood pressure diastolic 00 mm Hg 024 Height 63 in 10/17/2023 Temperature 97.7 degrees Fahrenheit 10/17/19 24 Weight 165 lbs 10/17/2023 Encounters Encounter Location Date Provider Diagnosis [facility] [address] [place] [address] 10/17/2023 Pako Dickens Jr Fatty liver K76.0 [...] ng (ICD-10 - Z12.11) PLAN OF TREATMENT Treatment Notes Assessment Notes Fatty liver labs to be done in /apr Pending Test Test Name Order Date LIVER PROFILE 10/17/2023 Liver Fibrosis Pnl 10/17/2023 Next Appt Details Follow Up: 1 Year, Reason: Provider Name:Pako sanchez Jr, 10/15/2024 10:50:00 AM, [address], [address], [place], [address],
--- OUTSIDE RECORDS SUMMARY | 2024-01-10 09:48 | XMS_ITS ---
Author Organization [facility] Address [address] [place] [address] Care Team Providers Care Bank Examiner Name Role Phone WALDEMAR BROTHERS Primary Care Provider Unavail nereida Dickens Jr, Pako Unavailable [phone] REASON FOR VISIT pathology Encounters Encounter Location Date Provider Diagnosis [facility] [address] [place] [address] 11/01/2022 Pako Dickens Jr PLAN OF TREATMENT Next Appt Details Provider Name:Pako sanchez Jr, 10/15/2024 10:50:00 AM, [address], [address], [place], [address],
--- OUTSIDE RECORDS SUMMARY | 2024-01-10 09:48 | XMS_ITS | Continuity of Care Document ---
Author Organization [facility] Address [address] [place] [address]- Care Team Providers Care Malted Milk Mixer Name Role Phone Not on Staff, PCP Primary Care Physician Unavail able Encounter 10/30/22 - 11/06/22 [facility] [place] [address], [address] [place] [address]- Attending Physician: Nani Ling NP Admitting Physician: Nani Ling NP Referring Physician: Nani Ling NP Results Radiology Reports * Exam Date Time Procedure Performing Provider Status 10/30/22 11:[address] Heart W/O Dye Heron Eval Johnny Pablo jasmina; Auth (Verified) Notes: (CT Heart W/O Dye Heron Eval) Reason For Exam: E78.2 MIXED HYPERLIPIDEMIA RESULT: CT Heart W/O Dye Heron Eval CT Heart W/O Dye Heron Eval INDICATION: Reason: MIXED HYPERLIPIDEMIA. Female of age 72 years, race White COMPARISON: None TECHNIQUE: Coronary artery Calcium Scoring. After a localizing costumer assistant image was obtained, an ECG-gated noncontrast exam was obtained of the heart in late diastole. The region of interest was limited to the heart in order to optimize image quality. Weight-based protocol using automatic tube modulation was used to optimize exposure parameters. A Gladitood 64 scanner was used, with Agatston scoring performed using XYZE web-based software. CTDIvol Body: 7.27 mGy, DLP Body: 102 mGy*cm. FINDINGS: Mild, widespread motion artifact. Coronary Calcium Scoring Summary: Left Main: score 0. LAD: score 0. Circumflex: score 0. Right: score 0. TOTAL: score 0. Non-coronary Findings: Partially imaged colonic diverticulum. Mild left base atelectasis associatedwith left hemidiaphragm elevation. IMPRESSION: The Agatston coronary calcium score is 0. The Multi-Ethnic Study of Atherosclerosis (BRYANT) trial on-line calculator can be used to determine the probability of having coronary calcification and the calcium score percentile for subjects basedon age, gender and race/ethnicity who are free of clinical cardiovascular disease and treated diabetes: http://www.bryant-nhlbi.org/Calcium/input.aspx Within this cohort, the probability of having coronary calcification is 67 %. The observed calcium score is at the 0 percentile. I have personally reviewed the images and I agree with this report. WSN: [id number] Ordering Physician: Nani Ling Dictated By: Brissa Villasenor MD Dictated Date/Time: 10/31/22 3:33 pm Reviewed By: Douglas Snyder MD Signed By: Douglas Snyder MD Signed Date/Time: 10/31/22 3:38 pm Transcribed By: CARLOZ Transcribed Date/Time: 10/31/22 2:40 pm Patient Care team information Care Team Personnel Name: Not on Staff, PCP Position: [facility] Physician (General Medicine) Member Role: PCP
--- OUTSIDE RECORDS SUMMARY | 2024-01-10 09:48 | XMS_ITS | Continuity of Care Document ---
Author Organization [facility] Address [address] [place] [address]- Care Team Providers Care Weed Sprayer Name Role Phone Not on Staff, PCP Primary Care Physician Unavail able Encounter 10/25/22 - 11/29/22 [facility] [address], [address] [place] [address]- Attending Physician: Nani Ling NP Admitting Physician: Nani Ling NP Referring Physician: Nani Ling NP Patient Care team information Care Team Personnel Name: Not on Staff, PCP Position: [facility] Physician (General Medicine) Member Role: PCP
[2024-01-10] MEDS: Albuterol Sulfate 2.5 MG, Albuterol/Iprat 2.5/0.5MG 3 ML 3 ML INHALE (10:05)
[2024-01-10] MEDS: methylPREDNISolone Sod Succ 125 MG/2 ML VIAL IVPUSH (10:15)
[2024-01-10 10:39] LABS: Influenza A PCR NEGATIVE (Negative); Influenza B PCR NEGATIVE (Negative); Resp Syncy Virus RNA Qual PCR NEGATIVE (Negative); SARS COV2 PCR INHOUSE NEGATIVE (Negative)
--- NOTE | 2024-01-10 10:44 | ED.URI ---
HPI - URI/Sore Throat General Chief Complaint: Upper Respiratory Symptoms Stated Complaint: cough-sob Time Seen by Provider: 01/10/24 09:36 Source: patient and family () Mode of arrival: ambulatory Limitations: no limitations History of Present Illness ED Provider: MIQUEL WILLARD PA-C HPI Narrative: 73 year old female with pmhx significant for HTN, HDL, GERD, hyperparathyroidism, and asthma (not on supplemtal O2) presents to the ED today with her for evaluation of cough and wheezing x6 days. States her cough has been productive of clear sputum. Reports associated nasal congestion and runny nose. She has been taking OTC mucinex. She has also been using her inhaler and nebulizer at home which provides temporary relief. 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 States her at home was recently ill with an upper respiratory infection. Denies recent travel or long car rides. Denies fever, chills, headache, dizziness, vision changes, chest pain, SOB, palpitations, LE pain/ swelling. Related Data Home Medications ?Medication ?Instructions ?Recorded ?Confirmed albuterol sulfate 1.25 mg/3 mL 1.25 mg inhalation QID PRN wheezing 10/12/22 10/01/23 solution for nebulization amlodipine 10 mg tablet 10 mg PO DAILY 10/12/22 10/01/23 montelukast 10 mg tablet 10 mg PO DAILY 10/12/22 10/01/23 omega 6-qet-pja-fish oil 1,000 mg 1 cap PO DAILY 10/12/22 10/01/23 (120 mg-180 mg) capsule (Fish Oil) omeprazole 20 mg capsule,delayed 20 mg PO DAILY 10/12/22 10/01/23 release albuterol sulfate 90 mcg/actuation 2 puff inhalation Q4H PRN Wheezing 10/01/23 10/01/23 aerosol inhaler budesonide-formoterol HFA 160 2 puff inhalation BID 10/01/23 10/01/23 mcg-4.5 mcg/actuation aerosol inhaler (Symbicort) cholecalciferol (vitamin D3) 125 125 mcg PO DAILY 10/01/23 10/01/23 mcg (5,000 unit) tablet (Vitamin D3) prednisone 10 mg tablet 40 mg PO DAILY 10/01/23 10/01/23 Previous Rx's ?Medication ?Instructions ?Recorded benzonatate 100 mg capsule 200 mg (2 x 100 mg) PO TID PRN 10/02/23 Cough #30 caps Allergies Allergy/AdvReac Type Severity Reaction Status Date / Time lisinopril Allergy Severe Difficulty Verified 01/10/24 09:26 Breathing codeine Allergy Intermediate Unconscious Verified 01/10/24 09:26 Review of Systems Review of Systems: Constitutional: No fever, chills, fatigue, night sweats, weight changes ENT/Mouth: No ear pain, hearing loss, nasal congestion, sinus pain, rhinorrhea, sore throat Eyes: No eye pain, swelling, redness, vision changes, discharge Cardio: No chest pain, palpitations, LAWS, orthopnea, peripheral edema Pulm: No SOB, dyspnea, hemoptysis, +cough, +wheezing GI: No nausea, vomiting, hematemesis, abdominal pain, diarrhea, constipation, hematochezia, melena : No irregular bleeding, dysuria, frequency, urgency, hesitancy, hematuria, flank pain, urinary flow changes, urinary incontinence or retention MSK: No back pain, neck pain, joint pain, myalgias Skin: No lesions, rashes Neuro: No weakness, numbness, paresthesias, LOC, dizziness, headache Psych: No anxiety/panic, depression, SI/HI, AH/VH All other systems reviewed and are negative. [facility] Past Medical History Attestation statement: The following information was validated with the patient. Source: old records reviewed and nursing notes reviewed Medical History Hyperparathyroidism Fatty liver Pneumonia Osteopenia Acid reflux disease Basal cell carcinoma Asthma HLD (hyperlipidemia) HTN (hypertension) Surgical History H/O parathyroidectomy History of removal of both ovaries H/O section Hx of tonsillectomy H/O colonoscopy Social History Social History Household Members: Spouse Housing: House Do you presently have visiting nurse or other home services: No Alcohol intake: never Patient Tobacco Use Status: Never used Tobacco Second Hand Smoke Exposure: No Advance Directives: Yes Advance Directives Information Provided: Yes Advance Directives on File: No service: No Physical Exam Vital Signs: Vital Signs: Last Vital Signs Temp 97.9 F 01/10/24 09:26 Pulse 76 01/10/24 12:18 Resp 17 01/10/24 12:18 BP 127/68 01/10/24 12:18 Pulse Ox 87 L 01/10/24 12:59 O2 Del Method Room Air 01/10/24 12:18 BMI result Body Mass Index 30.0 hypertensive, satting 93% on RA General: Well appearing, in no acute distress. Skin: Warm, dry, intact. No rashes or lesions. Head: Normocephalic, atraumatic. EENT: Hearing is intact b/l. Conjunctiva clear. PERRLA. EOM intact. Moist mucous membranes.? Neck: Supple without LAD Cardiac: Chest wall symmetric. RRR. No JVD. Lungs: Normal respiratory effort without accessory muscle use. no tripoding. no audible wheezes. congested cough. lungs with scattered wheezes and rhonchi. Abdomen: Soft, non-tender, non-distended. No rebound tenderness or guarding Back: No midline spinous or paraspinal tenderness. No step off deformity. Ext: Upper and lower extremities atraumatic, without tenderness, deformity, swelling or erythema. Full ROM throughout. Neuro: AOx3. Normal speech. Sensation intact to light touch. NV intact distally. Ambulating with steady gait. Psych: Appropriate mood and affect. Responds appropriately to questions. Course Course Course Narrative: 1304 -- CBC without leukocytosis or left shift. no anemia. h&h stable. Chemistry with hypokalemia to 3. Magnesium WNL. PO and IV repletion ordered. no other acute electrolyte abnormality requiring intervention. negative for covid/ flu/ rsv. CXR showing subsegmental atelectasis vs scarring to LL base. no focal consolidation or infiltrate. > patient treated with up draft, IV solumedrol, and IV mag. On re-evaluation, patient satting around 88% on RA, states her baseline is 96%. does not require supplemental O2 at home. on ambulatory pulse ox, patient desatted to 86-87% on RA, endorsing SOB. lungs with rhonchi bilaterally. Will present to hospitalist for admission for acute asthma exacerbation. Medications Administered Discontinued Medications Generic Name Dose Route Start Last Admin Trade Name Freq PRN Reason Stop Dose Admin Albuterol Sulfate 2.5 mg/ 0 mg 01/10/24 10:00 01/10/24 10:05 Albuterol/Ipratropium 3 ml INHALE 01/10/24 10:01 1 dose ONCE ONE Administration Magnesium Sulfate 2 gm in 50 mls @ 150 mls/hr 01/10/24 11:15 01/10/24 12:00 Magnesium Sulfate/H2o IV 01/10/24 11:34 Infused ONCE ONE Infusion Potassium Chloride 10 meq in 100 mls @ 100 mls/hr 01/10/24 11:15 01/10/24 12:46 Potassium Chloride/H20 IV 01/10/24 12:14 Infused ONCE ONE Infusion Sodium Chloride 1,000 mls @ 999 mls/hr 01/10/24 11:30 01/10/24 12:46 Ns IV 01/10/24 12:30 Infused .Q1H1M IONA Infusion Methylprednisolone Sodium Succinate 125 mg 01/10/24 09:46 01/10/24 10:15 Methylprednisolone Sod Succ 125 Mg/2 Ml Vial IVPUSH 01/10/24 09:47 125 mg ONCE ONE Administration Potassium Chloride 60 meq 01/10/24 11:15 01/10/24 11:45 Potassium Chloride Packet 20 Meq Packet PO 01/10/24 11:16 60 meq ONCE ONE Administration Medical Decision Making Medical Decision Making MDM Narrative: 73 year old female with pmhx significant for HTN, HDL, GERD, hyperparathyroidism, and asthma (not on supplemtal O2) presents to the ED today with her for evaluation of cough and wheezing x6 days. Patient's vitals are notable for hypertension. O2 93% on RA which appears to be around patient's baseline. On exam, there is normal respiratory effort without accessory muscle use. no tripoding. no audible wheezes. congested cough. lungs with scattered wheezes and rhonchi. No calf tenderness b/l. No JVD or peripheral edema. Differential diagnosis includes asthma exacerbation, bronchitis, viral syndrome, pneumonia, anemia, electrolyte abnormality. Unlikely CHF, ACS, PE. Plan for labs, viral swabs, CXR, ED bronch protocol, IV steroid, re-evaluation. Differential Diagnosis Differential Diagnoses: The differential diagnosis associated with the presentation includes as above. Admission/Observation Consideration of admission/observation: Escalation of care including admission/observation considered Patient to be admitted to medicine for acute exacerbation of asthma Consult Healthcare Provider Management of the patient was discussed with: Hospitalist (Dr. Dow) Lab Data MDM Lab Attestation statement: I reviewed the patient's lab results. as above. 01/10/24 10:49 01/10/24 10:49 Labs: Lab Results 01/10/24 01/10/24 01/10/24 Range/Units 09:52 10:49 13:21 WBC 6.2 (4.8-10.8) X10*3/uL RBC 4.42 (4.20-5.50) X10*6/uL Hgb 13.1 (12.0-16.0) g/dl Hct 38.5 (37.0-47.0) % MCV 87.1 (80.0-98.0) fL MCH 29.6 (27.0-33.0) pg MCHC 34.0 (31.0-35.0) g/dl RDW 13.1 (11.0-16.0) % Plt Count 310 (160-400) X10*3/uL MPV 9.6 (9.4-12.3) fL Immature Gran % (Auto) 0.3 (0.0-0.4) % Neut % (Auto) 56.4 (45-73) % Lymph % (Auto) 25.0 (20-40) % [place] % (Auto) 11.7 H (2-11) % Eos % (Auto) 5.8 H (0-4) % Baso % (Auto) 0.8 (0-2) % Lymph # (Auto) 1.5 (1.2-4.9) X10*3/uL [place] # (Auto) 0.7 (0.1-1.2) X10*3/uL Eos # (Auto) 0.4 (0.0-0.4) X10*3/uL Baso # (Auto) 0.1 (0.0-0.2) X10*3/uL Abs Immat Gran (auto) 0.02 (0.00-0.03) X10*3/uL Absolute Neuts (auto) 3.5 (2.0-8.3) x10*3/uL Absolute Nucleated RBC 0.000 (0.0-0.012) X10*3/uL Nucleated RBC % (auto) 0.0 (0.0-0.2) /100WBC VBG pH 7.43 (7.32-7.43) VBG pCO2 34 mmHg VBG pO2 65 mmHg VBG HCO3 23 (22-26) mmol/L VBG O2 Saturation 88.0 % VBG Base Excess -0.3 mmol/L Sodium 142 (135-145) mmol/L Potassium 3.0 L (3.3-5.1) mmol/L Chloride 106 (96-108) mmol/L Carbon Dioxide 27 (22-29) mmol/L Anion Gap 12 (12-20) BUN 9 (9-16) mg/dL Creatinine 0.82 (0.5-1.4) mg/dL Estim Creat Clear Calc 56.8 Estimated GFR > 60 Random Glucose 119 H (60-115) mg/dL Calcium 10.3 H (8.4-10.2) mg/dL Magnesium 2.1 (1.6-2.6) mg/dL Total Bilirubin 0.4 (0.0-1.0) mg/dL AST 26 (5-31) U/L ALT 38 H (0-31) U/L Alkaline Phosphatase 82 (39-117) U/L Troponin I High Sens < 2.7 (<3.5-17.0) ng/L B-Natriuretic Peptide 14 (<100) pg/mL Total Protein 7.1 (6.5-8.0) g/dL Albumin 4.4 (3.5-5.0) g/dL Influenza Type A (PCR) NEGATIVE (Negative) Influenza Type B (PCR) NEGATIVE (Negative) RSV RNA Qual (PCR) NEGATIVE (Negative) SARS-CoV-2 RNA (RT-PCR) NEGATIVE (Negative) Independent Interpretation I performed an independent interpretation of an: Plain X-Ray Interpretation: CXR without infiltrate or consolidation, agree with radiologist's interpretation. Radiology Impression Discussion of test interpretation with radiology: I have reviewed the radiologist's reading. Radiologist Impression: EXAMINATION: XR CHEST CLINICAL INFORMATION: Wheezing COMPARISON: X-ray dated September 30, 2023. TECHNIQUE: 2 views of the chest were obtained. FINDINGS: No consolidation, pleural effusion or pneumothorax. Low lung volume. Linear opacities left lower lung lobe, left basal. Cardiomediastinal silhouette is unchanged with calcified plaque aortic arch. Multilevel thoracic spondylosis. Osteopenia versus osteoporosis. XR/XR chest 2V IMPRESSION: Subsegmental atelectasis versus scarring, left lung base. Electronically signed by: Emeka King MD 01/10/2024 10:01 AM EDT Independent Historian Clinical information obtained from an independent historian. History obtained from or confirmed by: Spouse () External Record Review External record reviewed: Inpatient record, Office record, Outpatient record, Prior outpatient labs, Prior outpatient radiology, Primary care record and Outside ED record Prescription Management I considered prescription management with: Other (prednisone, tessalon perles) Chronic Conditions Patient?s care impacted by: Other (asthma) Social Determinants Patient?s care significantly limited by Social Determinants of Health including: Other Social Determinant of Health Critical Care Time Critical Care Time Critical Care Time: Yes Total Critical Care Time: 32 Attestation: Critical care time in the amount of 32 minutes has been provided to the patient in terms of direct patient care, frequent reevaluation, review and interpretation of medical data and results, and management of potentially life-threatening conditions. This is all outside of any medical procedures. Discharge Plan Discharge Clinical Impression: Acute asthma exacerbation, Hypokalemia Patient Disposition: Admitted As Inpatient Prescriptions: No Action albuterol sulfate 1.25 mg/3 mL solution for nebulization 1.25 mg inhalation QID PRN (Reason: wheezing) amlodipine 10 mg tablet 10 mg PO DAILY omeprazole 20 mg capsule,delayed release(DR/EC) 20 mg PO DAILY montelukast 10 mg tablet 10 mg PO DAILY omega 1-rry-kkk-fish oil [Fish Oil] 1,000 mg (120 mg-180 mg) Capsule 1 cap PO DAILY albuterol sulfate 90 mcg/actuation HFA aerosol inhaler 2 puff INHALATION Q4H PRN (Reason: Wheezing) budesonide-formoterol [Symbicort] 160-4.5 mcg/actuation HFA aerosol inhaler 2 puff inhalation BID cholecalciferol (vitamin D3) [Vitamin D3] 125 mcg (5,000 unit) Tablet 125 mcg PO DAILY prednisone 10 mg tablet 40 mg PO DAILY Rx Instructions: 40 mg qd for 2 days, 30 mg qd for 2 days, 20 mg qd for 2 days, 10 mg qd for 2 days benzonatate 100 mg Capsule 200 mg PO TID PRN (Reason: Cough) Qty: 30 0RF Print Language: Malay
[2024-01-10 10:54] LABS: MANUAL DIFF FLAG NO
[2024-01-10 10:57] LABS: Basophils Absolute Auto 0.1 X10*3/uL (0.0-0.2); Basophils Percent Auto 0.8 % (0-2); Eosinophils Absolute Auto 0.4 X10*3/uL (0.0-0.4); Eosinophils Percent Auto 5.8 % (0-4); Hematocrit 38.5 % (37.0-47.0); Hemoglobin 13.1 g/dl (12.0-16.0); Imm Gran Abs Auto 0.02 X10*3/uL (0.00-0.03); Imm Gran Pct Auto 0.3 % (0.0-0.4); Lymphocytes Absolute Auto 1.5 X10*3/uL (1.2-4.9); Mean Corpuscular Hemoglobin 29.6 pg (27.0-33.0); Mean Corpuscular Volume 87.1 fL (80.0-98.0); Mean Platelet Volume 9.6 fL (9.4-12.3); Monocytes Absolute Auto 0.7 X10*3/uL (0.1-1.2); Monocytes Percent Auto 11.7 % (2-11); Neutrophils Absolute Auto 3.5 x10*3/uL (2.0-8.3); Neutrophils Percent Auto 56.4 % (45-73); Platelet Count 310 X10*3/uL (160-400); Red Blood Count 4.42 X10*6/uL (4.20-5.50); Red Cell Distribution Width 13.1 % (11.0-16.0); White Blood Count 6.2 X10*3/uL (4.8-10.8)
[2024-01-10 11:09] LABS: Alanine Aminotransferase 38 U/L (0-31); Albumin Level 4.4 g/dL (3.5-5.0); Alkaline Phosphatase 82 U/L (39-117); Anion Gap 12 (12-20); Aspartate Amino Transferase 26 U/L (5-31); Bilirubin Total 0.4 mg/dL (0.0-1.0); Blood Urea Nitrogen 9 mg/dL (9-16); Calcium 10.3 mg/dL (8.4-10.2); Carbon Dioxide 27 mmol/L (22-29); Chloride 106 mmol/L (96-108); Creatinine Clr Calc Pharmacy 56.8; Estimated Glomerular Filt Rate > 60; Glucose Random 119 mg/dL (60-115); Magnesium 2.1 mg/dL (1.6-2.6); Sodium 142 mmol/L (135-145); Total Protein 7.1 g/dL (6.5-8.0)
[2024-01-10] MEDS: Magnesium Sulfate/H2O 2 GM/50 ML PIGGYBACK IV (11:40)
[2024-01-10] MEDS: 0.9 % Sodium Chloride 1,000 ML 999 ML IV (11:40)
[2024-01-10] MEDS: Potassium Chloride/H20 10 MEQ/100 ML PIGGYBACK 100 MEQ IV (11:40)
[2024-01-10] MEDS: Potassium Chloride Packet 20 MEQ PACKET 60 MEQ PO (11:45)
--- NOTE | 2024-01-10 12:59 | PC.NURSE ---
patient ambulating pulse ox 87%, upon resting back in bed patient 86%. patient oxygen up to 89% - placed on 2L nasal cannula. reports mild shortness of breath with ambulation
[2024-01-10 13:24] LABS: Troponin-I High Sensitivity < 2.7 ng/L (<3.5-17.0)
[2024-01-10 13:25] LABS: Venous Blood Gas Refer to POC result
[2024-01-10 13:25] LABS: VBG Base Excess -0.3 mmol/L; VBG HCO3 23 mmol/L (22-26); VBG pCO2 34 mmHg; VBG pH 7.43 (7.32-7.43); VBG pO2 65 mmHg
[2024-01-10 13:38] LABS: B Type Natriuretic Peptide 14 pg/mL (<100)
--- NOTE | 2024-01-10 13:38 | P.HPHOSP_ITS ---
History of Present Illness Date of Service: 01/10/24 Attending physician on admission: Gelacio Hoskins Chief Complaint: SOB, wheeze, cough x6 days Patient is a 73-year-old female with a past medical history significant for moderate persistent asthma, hypertension, hyperlipidemia, hyperparathyroidism, and GERD, who presented to the ED today due to cough, shortness of breath and wheezing x6 days. She reports that her was also sick recently with similar symptoms however he had additional diarrhea and his symptoms improved. She has been using her albuterol 2 to 3 times a day at home with mild improvement. She has not seen her PCP for this. Her cough is sometimes productive, mostly clear but sometimes yellow sputum. She denies any fever, chills, nausea, vomiting, chest pain, abdominal pain, diarrhea or lower extremity edema. Review of Systems 2 Constitutional: Constitutional: Denies chills, Denies fatigue, Denies fever(s), Denies headache(s) and Denies weakness Eyes: Eyes: Denies blurry vision and Denies change in vision ENT: Denies headache(s), Denies nasal congestion, Denies nasal discharge and Denies sore throat Cardiovascular: Cardiovascular: Denies chest pain, Denies rapid heart rate, Denies leg edema, Denies lightheadedness and Reports dyspnea Respiratory: Respiratory: Reports as per HPI, Reports cough, Reports dyspnea and Reports wheezing Gastrointestinal: Gastrointestinal: Denies constipation, Denies diarrhea, Denies nausea and Denies vomiting Genitourinary: Genitourinary: Denies dysuria Musculoskeletal: Musculoskeletal: Denies back pain and Denies myalgias Integumentary/Breasts: Skin/Breast: Denies rash Neurologic: Denies confusion, Denies headache(s), Denies memory loss and Denies weakness Psychiatric: Psychiatric: Denies confusion and Denies memory loss Endocrine: Endocrine: Denies fatigue Allergic/Immunologic: Allergic/Immunologic: Reports wheezing [facility] Medical History Hyperparathyroidism Fatty liver Pneumonia Osteopenia Acid reflux disease Basal cell carcinoma Asthma HLD (hyperlipidemia) HTN (hypertension) Functional capacity: independent ambulation Surgical History H/O parathyroidectomy History of removal of both ovaries H/O section Hx of tonsillectomy H/O colonoscopy Social History Household Members: Spouse Housing: Condominium Do you presently have visiting nurse or other home services: No Alcohol intake: never Patient Tobacco Use Status: Never used Tobacco Second Hand Smoke Exposure: No Use of substances other than those prescribed or required for medical reasons: No Have you been hit, kicked, punched, or otherwise hurt by someone within the past year? If so, by whom?: No Do you feel safe in your current relationship?: Yes Is there a partner from a previous relationship who is making you feel unsafe now?: No Are you made to feel afraid or neglected: No Spiritual Healthcare Practices: [employer] Advance Directives: Yes Advance Directives Information Provided: Yes Advance Directives on File: No Advance Directives Date on File: 01/10/24 Do you have a plan to hurt others: No Plan Recently lost weight without trying: No Nutrition Risks: No Nutritional Risk Patient : No : No service: No Meds Allergies Allergy/AdvReac Type Severity Reaction Status Date / Time lisinopril Allergy Severe Difficulty Verified 01/10/24 09:26 Breathing codeine Allergy Intermediate Unconscious Verified 01/10/24 09:26 Home Medications ?Medication ?Instructions ?Recorded ?Confirmed ?Last Taken ?Type amlodipine 10 mg tablet 10 mg PO BEDTIME 10/12/22 01/10/24 01/10/24 History montelukast 10 mg tablet 10 mg PO BEDTIME 10/12/22 01/10/24 01/09/24 History omega 3-mnz-dzn-fish oil 1,000 mg 1 cap PO DAILY 10/12/22 01/10/24 01/10/24 History (120 mg-180 mg) capsule (Fish Oil) omeprazole 20 mg capsule,delayed 20 mg PO DAILY@0630 10/12/22 01/10/24 01/10/24 History release albuterol sulfate 90 mcg/actuation 2 puff inhalation Q4H PRN Wheezing 10/01/23 01/10/24 01/10/24 History aerosol inhaler budesonide-formoterol HFA 160 2 puff inhalation BID 10/01/23 01/10/24 01/10/24 History mcg-4.5 mcg/actuation aerosol inhaler (Symbicort) cholecalciferol (vitamin D3) 125 125 mcg PO DAILY 10/01/23 01/10/24 01/10/24 History mcg (5,000 unit) tablet (Vitamin D3) albuterol sulfate 2.5 mg/3 mL 2.5 mg inhalation Q6H PRN 01/10/24 01/10/24 Unknown History (0.083 %) solution for nebulization Shortness Of Breath Or Wheezing cetirizine 10 mg tablet (Zyrtec) 10 mg PO DAILY 01/10/24 01/10/24 01/09/24 History cyclosporine 0.05 % eye drops in a 1 drp ophthalmic (eye) Q12H 01/10/24 01/10/24 01/10/24 History dropperette Physical Exam 2 Vital Signs and Narrative: Vital Signs: Last Vital Signs Temp 97.9 F 01/10/24 09:26 Pulse 76 01/10/24 12:18 Resp 17 01/10/24 12:18 BP 127/68 01/10/24 12:18 Pulse Ox 87 L 01/10/24 12:59 O2 Del Method Room Air 01/10/24 12:18 BMI result Body Mass Index 30.0 General: AOx3, no acute distress, seen with bedside Resp: congestion bilaterally, no wheezing or respiratory distress CVS: S1, S2, RRR GI: +BS, NT, no distention Skin: Warm, dry Extremities: No edema Psych: Appropriate affect Const: General: No confusion Orientation/consciousness: No confusion Neuro: General: No confusion Results Labs 01/11/24 05:28 01/11/24 05:28 Labs: Laboratory Results - last 24 hr 01/10/24 01/10/24 01/10/24 09:52 10:49 13:21 MCV 87.1 MCH 29.6 MCHC 34.0 RDW 13.1 Plt Count 310 MPV 9.6 Immature Gran % (Auto) 0.3 Neut % (Auto) 56.4 Lymph % (Auto) 25.0 Cass % (Auto) 11.7 H Eos % (Auto) 5.8 H Baso % (Auto) 0.8 Lymph # (Auto) 1.5 Cass # (Auto) 0.7 Eos # (Auto) 0.4 Baso # (Auto) 0.1 Abs Immat Gran (auto) 0.02 Absolute Neuts (auto) 3.5 Absolute Nucleated RBC 0.000 Nucleated RBC % (auto) 0.0 VBG pH 7.43 VBG pCO2 34 VBG pO2 65 VBG HCO3 23 VBG O2 Saturation 88.0 VBG Base Excess -0.3 Anion Gap 12 Estim Creat Clear Calc 56.8 Estimated GFR > 60 Random Glucose 119 H Calcium 10.3 H Magnesium 2.1 Total Bilirubin 0.4 AST 26 ALT 38 H Alkaline Phosphatase 82 Troponin I High Sens < 2.7 Total Protein 7.1 Albumin 4.4 Influenza Type A (PCR) NEGATIVE Influenza Type B (PCR) NEGATIVE RSV RNA Qual (PCR) NEGATIVE SARS-CoV-2 RNA (RT-PCR) NEGATIVE Imaging Radiologist's Impressions: Impressions Chest X-Ray 01/10/24 09:47 IMPRESSION: Subsegmental atelectasis versus scarring, left lung base. Electronically signed by: Emeka King MD 01/10/2024 10:01 AM EDT RP Assessment and Plan (1) Acute asthma exacerbation: Status: Acute Plan Patient is a 73-year-old female with a past medical history significant for moderate persistent asthma, hypertension, hyperlipidemia, hyperparathyroidism, and GERD, who presented to the ED today due to cough, shortness of breath and wheezing x6 days. w/u for infetious process in ED negative including CBC, CXR, flu/RSV/COVID. minimal response initially with duonebs, IV mag and methylprednisone. acute asthma exacerbation - no leukocytosis - CXR negative - flu/RSV/COVID negative - duoneb, IV mag, solumedrol in ED with minimal response - duenebs Q4H while awake - continue IV solumedrol 40mg BID - continue montelukast - robatussin for cough - Resp panel - no bacterial cause found, abx not needed hypokalemia - K 3, given IV and PO supplementation in ED - check BMP tomorrow HTN - continue amlodipine GERD - continue omeprazole Full code VTE prophylaxis: Lovenox Patient with acute asthma exacerbation with failed outpatient treatment requiring admission for at least 2 midnights stay for IV steroids and breathing treatments. Quality Stroke Does the patient have a stroke diagnosis?: No VTE Prior VTE?: No VTE Risk Level:: Medical - moderate - high VTE Device Contraindication: Treatment Not Tolerated VTE Drug Contraindication: N/A - Med Ordered
[2024-01-10] MEDS: Albuterol/Iprat 2.5/0.5MG 3 ML AMPUL.NEB INHALE ×2 (14:10→18:09)
[2024-01-10 16:30] LABS: Adenovirus PCR Not Detected (Not Detect.); Bordetella parapertussis PCR Not Detected (Not Detect.); Bordetella pertussis PCR Not Detected (Not Detect.); Chlamydia pneumoniae PCR Not Detected (Not Detect.); Coronavirus 229E PCR Not Detected (Not Detect.); Coronavirus HKU1 PCR Not Detected (Not Detect.); Coronavirus NL63 PCR Not Detected (Not Detect.); Coronavirus OC43 PCR Not Detected (Not Detect.); Human metapneumovirus PCR Not Detected (Not Detect.); Influenza A PCR Not Detected (Not Detect.); Influenza B PCR Not Detected (Not Detect.); Mycoplasma pneumoniae PCR Not Detected (Not Detect.); Parainfluenza 1 PCR Not Detected (Not Detect.); Parainfluenza 2 PCR Not Detected (Not Detect.); Parainfluenza 3 PCR Not Detected (Not Detect.); Parainfluenza 4 PCR Not Detected (Not Detect.); RSV PCR Not Detected (Not Detect.); Rhino/Enterovirus PCR Detected (Not Detect.)
[2024-01-10 16:33] LABS: SARS-CoV-2 PCR Not Detected (Not Detect.)
--- NOTE | 2024-01-10 16:36 | PHA.MEDREC ---
Addendum entered by Austin Terrazas 01/10/24 16:42: reviewed Original Note: Pharmacy Consult ? Medication Reconciliation Pharmacy has completed the medication reconciliation. Spoke to patient to confirm med list. patient was able to tell me what she takes and matched Claim history.
--- NOTE | 2024-01-10 16:49 | PC.NURSE ---
continues to rest quietly in room w/ no obvious signs/symptoms of distress noted. ambulates independently w/ no device with steady gait. awaiting bed assignment.
[2024-01-10] MEDS: 0.9 % Sodium Chloride Flush 3 ML SYRINGE IVFLUSH ×2 (17:19→20:46)
[2024-01-10] MEDS: Montelukast Sodium 10 MG TABLET PO (20:39)
[2024-01-10] MEDS: methylPREDNISolone Sod Succ 40 MG/ML VIAL IVPUSH (20:39)
[2024-01-10] MEDS: amLODIPine Besylate 10 MG TABLET PO (20:39)
[2024-01-11 03:04] VITALS: BP 128/63; PULSE 99; RESP 14; TEMP 36.6; O2SAT 92
[2024-01-11] MEDS: Omeprazole 20 MG CAPSULE.DR PO (05:33)
[2024-01-11 06:14] LABS: MANUAL DIFF FLAG NO
[2024-01-11 06:52] LABS: Anion Gap 16 (12-20); Blood Urea Nitrogen 10 mg/dL (9-16); Calcium 9.5 mg/dL (8.4-10.2); Carbon Dioxide 19 mmol/L (22-29); Chloride 108 mmol/L (96-108); Creatinine Clr Calc Pharmacy 62.9; Estimated Glomerular Filt Rate > 60; Glucose Random 196 mg/dL (60-115); Potassium 3.3 mmol/L (3.3-5.1); Sodium 140 mmol/L (135-145)
[2024-01-11 07:01] LABS: Basophils Percent Auto 0.1 % (0-2); Hematocrit 38.6 % (37.0-47.0); Imm Gran Abs Auto 0.07 X10*3/uL (0.00-0.03); Imm Gran Pct Auto 0.6 % (0.0-0.4); Lymphocytes Absolute Auto 1.3 X10*3/uL (1.2-4.9); Lymphocytes Percent Auto 11.9 % (20-40); Mean Corpuscular HGB Conc 33.7 g/dl (31.0-35.0); Mean Corpuscular Hemoglobin 29.3 pg (27.0-33.0); Mean Corpuscular Volume 87.1 fL (80.0-98.0); Mean Platelet Volume 10.2 fL (9.4-12.3); Monocytes Absolute Auto 0.4 X10*3/uL (0.1-1.2); Monocytes Percent Auto 3.9 % (2-11); Neutrophils Absolute Auto 9.4 x10*3/uL (2.0-8.3); Neutrophils Percent Auto 83.5 % (45-73); Platelet Count 349 X10*3/uL (160-400); Red Blood Count 4.43 X10*6/uL (4.20-5.50); Red Cell Distribution Width 13.2 % (11.0-16.0); White Blood Count 11.2 X10*3/uL (4.8-10.8)
[2024-01-11] MEDS: Albuterol/Iprat 2.5/0.5MG 3 ML AMPUL.NEB INHALE ×2 (07:42→11:33)
[2024-01-11 07:44] VITALS: PULSE 91; RESP 18; O2SAT 93
[2024-01-11 07:48] VITALS: BP 137/72; PULSE 95; RESP 18; TEMP 36.6; O2SAT 91
[2024-01-11] MEDS: 0.9 % Sodium Chloride Flush 3 ML SYRINGE IVFLUSH (09:15)
[2024-01-11] MEDS: Loratadine 10 MG TABLET PO (09:16)
[2024-01-11] MEDS: Benzonatate 100 MG CAPSULE PO (09:16)
[2024-01-11] MEDS: Cholecalciferol (Vitamin D3) 25 MCG TABLET 125 MCG PO (09:16)
[2024-01-11] MEDS: methylPREDNISolone Sod Succ 40 MG/ML VIAL IVPUSH (09:17)
[2024-01-11] MEDS: Potassium Chloride ER 20 MEQ TAB.ER.PRT PO (09:17)
--- NOTE | 2024-01-11 10:58 | P.DS_ITS ---
DS: Providers Provider Date of Service: 01/11/24 Date of admission: 01/10/24 14:09 Date of discharge: 01/11/24 Primary care physician: GAURI Leonard Admitting clinician: Gelacio Hoskins Attending physician on admission: Gelacio Hoskins Attending physician on discharge: Gelacio Hoskins Discharging clinician: Gelacio Hoskins DS: Diagnosis Discharge Diagnosis (1) Acute asthma exacerbation: Status: Acute DS: Summary Hospital Course Hospital Course: HPI: 73-year-old female with a past medical history significant for moderate persiste nt asthma, hypertension, hyperlipidemia, hyperparathyroidism, and GERD, who presented to the ED today due to cough, shortness of breath and wheezing x6 days. w/u for infetious process in ED negative including CBC, CXR, flu/RSV/COVID. minimal response initially with duonebs, IV mag and methylprednisone. Hopsital course: Patient was admitted to the hospital because of shortness of breath and URI like symptoms: Patient was started on nebs, steroids, respiratory panel was sent, chest x-ray-mild left atelectasis otherwise fine: With above supportive care patient seems to be improved, respiratory panel came back positive rhino and enterovirus positive. Patient seems to be improved significantly so going home with p.o. steroids, cough medication. plan: complete Prednisone 40 mg for 4 days. For atelectasis recommended deep breathing exercises and incentive spirometry p.r.n.. robitussion as needed (see dc instructions). Above management discussed with the patient in detail length she understand and in agreement with the plan, time spent 40 minute. Time Attestation Total time managing care of this patient today: 40 mintues. Discharge Coordination Time (in mins): 40 min Quality: Safe Use of Opioids Does Pt have an Active Cancer Diagnosis on the Problem List?: No Quality: Stroke Does the patient have a stroke diagnosis?: No Physical Exam Vital Signs: Vital Signs: Last Vital Signs Temp 97.9 F 01/11/24 07:48 Pulse 95 01/11/24 07:48 Resp 18 01/11/24 07:48 BP 137/72 01/11/24 07:48 Pulse Ox 91 L 01/11/24 07:48 O2 Del Method Room Air 01/11/24 07:48 O2 Flow Rate 2 01/11/24 03:04 Oxygen Flow Rate 2 01/10/24 16:48 BMI result Body Mass Index 30.0 Appearance: Alert.? Oriented X3.? cvs: rrr, [id number]. res: clear to auscultation ,no rhonchii or wheezing abd: no rebound or guarding ,nt, bs present. ext pulses present , no cyanosis. neuro: axo3 , nonfocal. DS: Data Data Completed and Pending Labs on day of discharge: Laboratory Results - last 24 hr 01/10/24 01/10/24 01/10/24 10:49 13:21 14:08 WBC RBC Hgb Hct MCV MCH MCHC RDW Plt Count MPV Immature Gran % (Auto) Neut % (Auto) Lymph % (Auto) Weston % (Auto) Eos % (Auto) Baso % (Auto) Lymph # (Auto) [place]on # (Auto) Eos # (Auto) Baso # (Auto) Abs Immat Gran (auto) Absolute Neuts (auto) Absolute Nucleated RBC Nucleated RBC % (auto) VBG pH 7.43 VBG pCO2 34 VBG pO2 65 VBG HCO3 23 VBG O2 Saturation 88.0 VBG Base Excess -0.3 Sodium 142 Potassium 3.0 L Chloride 106 Carbon Dioxide 27 Anion Gap 12 BUN 9 Creatinine 0.82 Estim Creat Clear Calc 56.8 Estimated GFR > 60 Random Glucose 119 H Calcium 10.3 H Magnesium 2.1 Total Bilirubin 0.4 AST 26 ALT 38 H Alkaline Phosphatase 82 Troponin I High Sens < 2.7 B-Natriuretic Peptide 14 Total Protein 7.1 Albumin 4.4 Respiratory Panel Stokes See Note Adenovirus (Rapid PCR) Not Detected B.pert (TEM-PCR) Not Detected B.parapertussis DNA PCR Not Detected C. pneumoniae DNA (PCR) Not Detected Coronavirus OC43 (PCR) Not Detected Coronavirus HKU1 (PCR) Not Detected Coronavirus 229E (PCR) Not Detected Coronavirus NL63 (PCR) Not Detected Human Metapneumovir PCR Not Detected Influenza A (RT-PCR) Not Detected Influenza B (RT-PCR) Not Detected M. pneumoniae (PCR) Not Detected Parainfluenza 1 (PCR) Not Detected Parainfluenza 2 (PCR) Not Detected Parainfluenza 3 (PCR) Not Detected Parainfluenza 4 (PCR) Not Detected RSV (PCR) Not Detected Entero/Rhino (PCR) Detected A SARS-CoV-2 RNA (RT-PCR) Not Detected 01/11/24 05:28 WBC 11.2 H RBC 4.43 Hgb 13.0 Hct 38.6 MCV 87.1 MCH 29.3 MCHC 33.7 RDW 13.2 Plt Count 349 MPV 10.2 Immature Gran % (Auto) 0.6 H Neut % (Auto) 83.5 H Lymph % (Auto) 11.9 L Weston % (Auto) 3.9 Eos % (Auto) 0.0 Baso % (Auto) 0.1 Lymph # (Auto) 1.3 Weston # (Auto) 0.4 Eos # (Auto) 0.0 Baso # (Auto) 0.0 Abs Immat Gran (auto) 0.07 H Absolute Neuts (auto) 9.4 H Absolute Nucleated RBC 0.000 Nucleated RBC % (auto) 0.0 VBG pH VBG pCO2 VBG pO2 VBG HCO3 VBG O2 Saturation VBG Base Excess Sodium 140 Potassium 3.3 Chloride 108 Carbon Dioxide 19 L Anion Gap 16 BUN 10 Creatinine 0.74 Estim Creat Clear Calc 62.9 Estimated GFR > 60 Random Glucose 196 H Calcium 9.5 D Magnesium Total Bilirubin AST ALT Alkaline Phosphatase Troponin I High Sens B-Natriuretic Peptide Total Protein Albumin Respiratory Panel Stokes Adenovirus (Rapid PCR) B.pert (TEM-PCR) B.parapertussis DNA PCR C. pneumoniae DNA (PCR) Coronavirus OC43 (PCR) Coronavirus HKU1 (PCR) Coronavirus 229E (PCR) Coronavirus NL63 (PCR) Human Metapneumovir PCR Influenza A (RT-PCR) Influenza B (RT-PCR) M. pneumoniae (PCR) Parainfluenza 1 (PCR) Parainfluenza 2 (PCR) Parainfluenza 3 (PCR) Parainfluenza 4 (PCR) RSV (PCR) Entero/Rhino (PCR) SARS-CoV-2 RNA (RT-PCR) Imaging Chest x-ray: Radiologist's impression: ITS Impressions Chest X-Ray 01/10/24 09:47 IMPRESSION: Subsegmental atelectasis versus scarring, left lung base. Electronically signed by: Emeka King MD 01/10/2024 10:01 AM EDT Discharge Plan Discharge Anticipated Discharge Date/Time: 01/11/24 10:52 Patient Disposition: Home, Self-Care Discharge Diagnosis: acute moderate asthma exacerbation, viral uti(rhino/enterovirus) Referrals: Rachel Mays FNP [Primary Care Provider] - 1 Week Discharge Medications: New guaifenesin 100 mg/5 mL Liquid 200 mg PO Q4H PRN (Reason: Cough) Qty: 473 0RF prednisone 20 mg tablet 40 mg PO DAILY Qty: 8 0RF Continued amlodipine 10 mg tablet 10 mg PO BEDTIME omeprazole 20 mg capsule,delayed release(DR/EC) 20 mg PO DAILY@0630 montelukast 10 mg tablet 10 mg PO BEDTIME omega 3-jfa-zwi-fish oil [Fish Oil] 1,000 mg (120 mg-180 mg) Capsule 1 cap PO DAILY albuterol sulfate 90 mcg/actuation HFA aerosol inhaler 2 puff INHALATION Q4H PRN (Reason: Wheezing) budesonide-formoterol [Symbicort] 160-4.5 mcg/actuation HFA aerosol inhaler 2 puff inhalation BID cholecalciferol (vitamin D3) [Vitamin D3] 125 mcg (5,000 unit) Tablet 125 mcg PO DAILY albuterol sulfate 2.5 mg /3 mL (0.083 %) solution for nebulization 2.5 mg inhalation Q6H PRN (Reason: Shortness Of Breath Or Wheezing) cyclosporine 0.05 % dropperette 1 drp ophthalmic (eye) Q12H Rx Instructions: Both eyes cetirizine [Zyrtec] 10 mg Tablet 10 mg PO DAILY Discharge Orders: Discharge Order (Routine); Ordered 01/11/24 Ordered By: Gelacio Hoskins Diet: Advance to usual diet Activity on Discharge: As tolerated Stand Alone Forms: Patient Portal Discharge page Print Language: Rwandan Care Plan Goals: Patient was admitted to the hospital because of shortness of breath and URI like symptoms: Patient was started on nebs, steroids, respiratory panel was sent, c hest x-ray-mild left atelectasis otherwise fine: With above supportive care patient seems to be improved, respiratory panel came back positive rhino and enterovirus positive. Patient seems to be improved significantly so going home with p.o. steroids, cough medication. Health Concerns: Prednisone 40 mg for 4 days. Plan of Treatment: As above. Assessment: As above. Patient Instructions: Moderate and Severe Persistent Asthma (DC), Viral Syndrome (DC)
[2024-01-11 11:35] VITALS: PULSE 104; RESP 18; O2SAT 92
--- NOTE | 2024-01-11 12:05 | MHC.CM.PN ---
IMM delivered. Lives in an apt w/ . Functionally independent. Denies use of DME or services. PCP Laura Mays [employer] Reports she has an HCP naming her , Marcin, as HCA. Copy requested. DP: Medically cleared for DC home self care. at bedside to transport. RN aware.
== END 2024-01-11 12:22 | disposition home or self-care (01) | DRG 202 ==
LOC: HO.ED 13:51 → HO.EDOVER 14:09 → HO.S3 17:10
PROVIDERS: Physician Assistant Medical; Admitting Provider Physician Assistant; Emergency Provider Emergency Medicine Emergency Medical Services; PCP Nurse Practitioner Family; Visit Provider Internal Medicine
DX: J45.41 Moderate persistent asthma with (acute) exacerbation (principal); J98.11 Atelectasis; B97.89 Other viral agents as the cause of diseases classified elsewhere; B97.10 Unspecified enterovirus as the cause of diseases classified elsewhere; E78.5 Hyperlipidemia, unspecified; E21.3 Hyperparathyroidism, unspecified; E87.6 Hypokalemia; I10 Essential (primary) hypertension; K21.9 Gastro-esophageal reflux disease without esophagitis; Z20.822 Contact with and (suspected) exposure to COVID-19; Z79.899 Other long term (current) drug therapy
CPT/HCPCS: 0241U; 36415; 71046; 80048; 80053; 82803; 83735; 83880; 84484; 85025; 87633; 94640; 99285; J2919; J3475; J3480

== ENCOUNTER → 2024-01-10 09:47 | Outpatient (BNV) | payer MEDICARE, SELFPAY | PROVIDERS: Emergency Provider Emergency Medicine Emergency Medical Services; PCP Nurse Practitioner Family; Visit Provider Radiology Diagnostic Radiology | DX: R06.02 Shortness of breath (principal); R05.9 Cough, unspecified | CPT/HCPCS: 71046 ==

== ENCOUNTER → 2024-01-10 14:09 | Outpatient (BNV) | payer MEDICARE, SELFPAY | PROVIDERS: Admitting Provider Physician Assistant; Emergency Provider Emergency Medicine Emergency Medical Services; PCP Nurse Practitioner Family; Visit Provider Physician Assistant | DX: J45.901 Unspecified asthma with (acute) exacerbation (principal) | CPT/HCPCS: 99223; 99239 ==

== ENCOUNTER 2024-01-16 09:09 | Inpatient (IN) | payer MEDICARE, SELFPAY ==
[2024-01-16] VITALS (11 sets, daily range): BP systolic 114–168; BP diastolic 56–96; PULSE 100–133; RESP 16–35; TEMP 36.6–36.8; O2SAT 90–96; BMI 31.2
--- NOTE | ~2024-01-16 | CT_ITS ---
EXAMINATION: CT ANGIOGRAM CHEST, PE PROTOCOL CLINICAL INFORMATION: Hypoxia COMPARISON: Chest x-ray January 18, 2024 TECHNIQUE: Multidetector CT pulmonary angiography of the thorax was performed according to the pulmonary embolism protocol after intravenous administration of 65 mL of intravenous Omnipaque. Reformatted coronal and sagittal imaging was performed. 3-D MIP images performed at a dedicated separate workstation. This CT examination was performed using dose optimization techniques as appropriate, variously including the following: *Automated exposure control *Adjustment of mA and/or kV according to patient size (this includes techniques or standardized protocols for targeted exams where dose is matched to indication/reason for exam; i.e. extremities or head) *Use of iterative reconstruction technique DLP: 281 mGy-cm QUALITY: Overall Exam Quality: Satisfactory. Pulmonary Arterial Enhancement: Adequate. Breath Hold: Adequate. Artifacts Impacting Image Quality: None. FINDINGS: VASCULAR: Heart: Normal in size. Coronary artery calcifications not present. Aorta: No thoracoabdominal aortic aneurysm. Three vessel arch. Pulmonary Artery: No filling defect is identified in the central, lobar, proximal segmental pulmonary arterial branches to suggest pulmonary embolus. NONVASCULAR: THORAX: Thyroid Gland: The visualized thyroid gland is normal. Lymph Nodes: No supraclavicular, axillary, mediastinal or hilar lymphadenopathy is identified. Airways: The trachea and central bronchi are normal. Bibasilar subsegmental airways impacted with debris. Lungs: Lower lobe subsegmental atelectasis. Pleura: No pleural effusion. No pneumothorax. Upper Abdomen: Hiatal hernia. The visualized upper abdomen is unremarkable. Soft Tissues/Musculoskeletal: No acute fracture or significant focal lesion. CT/CT angio chest PE protocol IMPRESSION: 1. No acute pulmonary embolus up to the proximal segmental level. 2. Impacted lower lobe airways with associated subsegmental atelectasis, concerning for aspiration. Superimposed pneumonia not excluded. Fleischner guidelines were followed. Electronically signed by: Per Quintana DO 01/19/2024 02:47 PM EST
--- NOTE | ~2024-01-16 | XR_ITS ---
EXAMINATION: XR CHEST CLINICAL INFORMATION: sob, hypoxia COMPARISON: X-ray dated January 16, 2024 TECHNIQUE: Frontal view of the chest was obtained. FINDINGS: Poor inspiration. Blunting of the left costophrenic angle. No pneumothorax. Pulmonary reticular pattern. Cardiomediastinal silhouette size is normal. Unable to evaluate the axial skeleton. XR/XR chest 1V IMPRESSION: Chronic interstitial lung disease with questionable small left-sided pleural effusion. Electronically signed by: Emeka King MD 01/18/2024 03:57 PM EST
--- NOTE | ~2024-01-16 | XR_ITS ---
EXAMINATION: XR CHEST CLINICAL INFORMATION: Shortness of breath, cough, history of asthma COMPARISON: 01/10/2024 TECHNIQUE: Frontal view of the chest was obtained. FINDINGS: There is no gross pneumothorax. Lung volumes are low. Heart size is normal. Increased patchy and streaky bibasilar opacities. No gross pleural effusion. XR/XR chest 1V IMPRESSION: Increased patchy and streaky bibasilar opacities. This study was presented today January 16, 2024 for interpretation. Stat results provided at this time as requested by referring provider. Electronically signed by: Marilyn Coronado MD 01/16/2024 10:13 AM [facility] [place]
--- NOTE | 2024-01-16 09:17 | ECG_ITS ---
Test Reason : SOB Blood Pressure : / mmHG Vent. Rate : 115 BPM Atrial Rate : 115 BPM P-R Int : 136 ms QRS Dur : 088 ms QT Int : 338 ms P-R-T Axes : 043 028 033 degrees QTc Int : 467 ms Sinus tachycardia Nonspecific ST abnormality Abnormal ECG When compared with ECG of 30-SEP-2023 22:36, No significant change was found Referred By: Jordan Vieira Electronically Signed By:ALBERTO EDGAR MD
[2024-01-16] MEDS: Albuterol Sulfate 7.5 MG, Albuterol/Iprat 2.5/0.5MG 3 ML 3 ML INHALE (09:20)
[2024-01-16] MEDS: methylPREDNISolone Sod Succ 125 MG/2 ML VIAL IVPUSH (09:21)
[2024-01-16 09:33] LABS: Basophils Absolute Auto 0.1 X10*3/uL (0.0-0.2); Basophils Percent Auto 0.5 % (0-2); Eosinophils Absolute Auto 0.3 X10*3/uL (0.0-0.4); Eosinophils Percent Auto 1.2 % (0-4); Hematocrit 40.7 % (37.0-47.0); Hemoglobin 14.2 g/dl (12.0-16.0); Imm Gran Abs Auto 0.69 X10*3/uL (0.00-0.03); Imm Gran Pct Auto 3.4 % (0.0-0.4); Lymphocytes Absolute Auto 6.9 X10*3/uL (1.2-4.9); Lymphocytes Percent Auto 33.7 % (20-40); MANUAL DIFF FLAG SCAN; Mean Corpuscular HGB Conc 34.9 g/dl (31.0-35.0); Mean Corpuscular Hemoglobin 29.8 pg (27.0-33.0); Mean Corpuscular Volume 85.3 fL (80.0-98.0); Mean Platelet Volume 9.1 fL (9.4-12.3); Monocytes Absolute Auto 1.7 X10*3/uL (0.1-1.2); Monocytes Percent Auto 8.4 % (2-11); Neutrophils Absolute Auto 10.8 x10*3/uL (2.0-8.3); Neutrophils Percent Auto 52.8 % (45-73); Platelet Count 467 X10*3/uL (160-400); Red Blood Count 4.77 X10*6/uL (4.20-5.50); Red Cell Distribution Width 13.1 % (11.0-16.0); SCAN SMEAR FLAG 1; White Blood Count 20.5 X10*3/uL (4.8-10.8)
[2024-01-16] MEDS: levalbuterol HCL 5 MG, Ipratropium Bromide 0.5 MG INHALE ×2 (09:38→13:23)
[2024-01-16 09:46] LABS: Anion Gap 17 (12-20); Blood Urea Nitrogen 17 mg/dL (9-16); Calcium 9.1 mg/dL (8.4-10.2); Carbon Dioxide 21 mmol/L (22-29); Chloride 104 mmol/L (96-108); Creatinine Clr Calc Pharmacy 62.1; Estimated Glomerular Filt Rate > 60; Glucose Random 108 mg/dL (60-115); Potassium 3.2 mmol/L (3.3-5.1); Sodium 139 mmol/L (135-145)
[2024-01-16 09:55] LABS: SLIDE REVIEW VERIFIED
--- NOTE | 2024-01-16 09:59 | PC.RT ---
RT called to bedside for pt desat. RT found pt still on breathing tx SATs 90%, pt calm and not coughing. Once tx was complete, RT placed pt on NC 6L. Pt SATs 90% on NC. Lungs bilaterally have improvement from txs however are still wheezing w/ rhonchi.
[2024-01-16 10:03] LABS: Troponin-I High Sensitivity < 2.7 ng/L (<3.5-17.0)
[2024-01-16 10:11] LABS: Influenza A PCR NEGATIVE (Negative); Influenza B PCR NEGATIVE (Negative); Resp Syncy Virus RNA Qual PCR NEGATIVE (Negative); SARS COV2 PCR INHOUSE NEGATIVE (Negative)
[2024-01-16 10:32] LABS: Venous Blood Gas Refer to POC result
[2024-01-16 10:32] LABS: VBG Base Excess 1.9 mmol/L; VBG HCO3 24 mmol/L (22-26); VBG pCO2 32 mmHg; VBG pH 7.49 (7.32-7.43); VBG pO2 71 mmHg
[2024-01-16] MEDS: Potassium Chloride ER 20 MEQ TAB.ER.PRT PO (10:45)
--- NOTE | 2024-01-16 11:07 | PC.NURSE ---
assumed care of pt at 1100 pt experienced coughing fit causing pt to desat to 86% on 8L via NC, increased to 10L via NC current SpO2 93%. MD Vieira and Respiratory aware.
[2024-01-16] MEDS: cefTRIAXone sodium 1 GM VIAL IVPUSH (11:18)
[2024-01-16] MEDS: Azithromycin 500 MG in 0.9 % Sodium Chloride 250 ML 125 MG IV (11:34)
--- NOTE | 2024-01-16 11:41 | ED_ITS ---
HPI - SOB/Dyspnea General Chief Complaint: Dyspnea Stated Complaint: SEPSIS ALERT,88% ON 15LPM NRB PER EMS Source: patient and EMS Mode of arrival: EMS Limitations: no limitations History of Present Illness ED Provider: Dr. Vieira HPI Narrative: Patient is a 73yo female with history of COPD who presents with increased shortness of breath. She has had increasing SOB for weeks and is on a prednisone taper. MD elicited complaint: shortness of breath and cough Pertinent past history: COPD Related Data Home oxygen amount: none Home Medications ?Medication ?Instructions ?Recorded ?Confirmed amlodipine 10 mg tablet 10 mg PO BEDTIME 10/12/22 01/10/24 montelukast 10 mg tablet 10 mg PO BEDTIME 10/12/22 01/10/24 omega 4-mqm-ecp-fish oil 1,000 mg 1 cap PO DAILY 10/12/22 01/10/24 (120 mg-180 mg) capsule (Fish Oil) omeprazole 20 mg capsule,delayed 20 mg PO DAILY@0630 10/12/22 01/10/24 release albuterol sulfate 90 mcg/actuation 2 puff inhalation Q4H PRN Wheezing 10/01/23 01/10/24 aerosol inhaler budesonide-formoterol HFA 160 2 puff inhalation BID 10/01/23 01/10/24 mcg-4.5 mcg/actuation aerosol inhaler (Symbicort) cholecalciferol (vitamin D3) 125 125 mcg PO DAILY 10/01/23 01/10/24 mcg (5,000 unit) tablet (Vitamin D3) albuterol sulfate 2.5 mg/3 mL 2.5 mg inhalation Q6H PRN 01/10/24 01/10/24 (0.083 %) solution for nebulization Shortness Of Breath Or Wheezing cetirizine 10 mg tablet (Zyrtec) 10 mg PO DAILY 01/10/24 01/10/24 cyclosporine 0.05 % eye drops in a 1 drp ophthalmic (eye) Q12H 01/10/24 01/10/24 dropperette Previous Rx's ?Medication ?Instructions ?Recorded guaifenesin 100 mg/5 mL oral liquid 200 mg (10 mL) PO Q4H PRN Cough 01/11/24 #473 mL prednisone 20 mg tablet 40 mg (2 x 20 mg) PO DAILY #8 tabs 01/11/24 Allergies Allergy/AdvReac Type Severity Reaction Status Date / Time lisinopril Allergy Severe Difficulty Verified 01/16/24 09:17 Breathing codeine Allergy Intermediate Unconscious Verified 01/16/24 09:17 Review of Systems 2 Review of Systems: Yes all other systems are reviewed and are negative Neurologic: Denies Sensory deficit (Neuro) [facility] Past Medical History Medical History Hyperparathyroidism Fatty liver Pneumonia Osteopenia Acid reflux disease Basal cell carcinoma Asthma HLD (hyperlipidemia) HTN (hypertension) Surgical History H/O parathyroidectomy History of removal of both ovaries H/O section Hx of tonsillectomy H/O colonoscopy Social History Social History Household Members: Spouse Housing: Condominium Do you presently have visiting nurse or other home services: No Alcohol intake: never Patient Tobacco Use Status: Never used Tobacco Second Hand Smoke Exposure: No Advance Directives: No Advance Directives Information Provided: Yes Advance Directives Date on File: 01/10/24 Do you have a plan to hurt others: No Plan service: No Physical Exam 2 Vital Signs: Vital Signs: Last Vital Signs Temp 98.0 F 01/16/24 09:16 Pulse 110 H 01/16/24 10:46 Resp 16 01/16/24 10:46 BP 165/96 H 01/16/24 09:26 Pulse Ox 90 L 01/16/24 10:46 O2 Del Method Nasal Cannula 01/16/24 10:46 O2 Flow Rate 8 01/16/24 10:46 Oxygen Flow Rate 15 01/16/24 09:16 BMI result Body Mass Index 30.0 Const: Other: coughing and very short of breath Nutritional Appearance: average body habitus Orientation/consciousness: oriented to person and patient oriented x3 Limitations: no limitations HEENT: Head: Yes normal to inspection Ears: external ears normal General nose exam: Normal external nose present Mouth: Normal oral and palatal mucosa present and oropharynx normal Throat: Yes posterior oropharynx normal Eyes: General: appearance normal, both eyes and all related structures Neck: Other: supple Neck: Yes normal visual inspection Chest: Chest palpation & inspection: normal inspection of the chest Resp: Other: Diffuse rhonci and wheezing Cardio: Jugular venous distension: no JVD Rate: regular rate Rhythm: r egular rhythm Heart sounds: S1 normal heart sound present and S2 normal heart sound present GI: Inspection: Yes normal to inspection Palpation (GI): Soft to palpation, nontender and No hepatosplenomegaly present Auscultation: normal bowel sounds : General: Yes no CVA tenderness Back/Spine/Pelvis: Back: no CVA tenderness Skin: General skin exam: no rashes or lesions noted Neuro: General: oriented to person and patient oriented x3 Cranial nerves: Yes CN's II-XII intact bilaterally Motor exam (neuro): 5/5 motor strength present throughout Sensory Exam: No Sensory deficit (Neuro) Extrem: General: Yes normal to inspection Psych: Appearance: grossly normal Course Reevaluation(s) Reevaluation #1: Patient is not septic, she is not in respiratory failure, WBC elevated from chronic steroid use, there is some streaking at the bases that I will cover with abx. Time: 12:08 Reevaluation #2: I spent 40 minutes of critical care, with interventions, assessments, speaking to patient, consultants, and family. Time: 12:12 Medications Administered Generic Name Dose Route Start Last Admin Trade Name Freq PRN Reason Stop Dose Admin Azithromycin 500 mg/ Sodium 250 mls @ 125 mls/hr 01/16/24 11:01 01/16/24 11:34 Chloride IV 01/16/24 13:00 125 mls/hr ONCE ONE Administration Discontinued Medications Generic Name Dose Route Start Last Admin Trade Name Freq PRN Reason Stop Dose Admin Ceftriaxone Sodium 1 gm 01/16/24 11:01 01/16/24 11:18 Ceftriaxone Sodium 1 Gm Vial IVPUSH 01/16/24 11:02 1 gm ONCE ONE Administration Albuterol Sulfate 7.5 mg/ 0 mg 01/16/24 09:16 01/16/24 09:20 Albuterol/Ipratropium 3 ml INHALE 01/16/24 09:17 1 each ONCE ONE Administration Levalbuterol HCl 5 mg/ 0 mg 01/16/24 09:34 01/16/24 09:38 Ipratropium [place] 0.5 mg INHALE 01/16/24 09:35 1 dose ONCE ONE Administration Methylprednisolone Sodium Succinate 125 mg 01/16/24 09:17 01/16/24 09:21 Methylprednisolone Sod Succ 125 Mg/2 Ml Vial IVPUSH 01/16/24 09:18 125 mg ONCE ONE Administration Potassium Chloride 20 meq 01/16/24 09:58 01/16/24 10:45 Potassium Chloride Er 20 Meq Tab.Er.Prt PO 01/16/24 09:59 20 meq ONCE ONE Administration Medical Decision Making Differential Diagnosis Differential Diagnoses: The differential diagnosis associated with the presentation includes (pneumonia, COPD exacerbation, hypoxia, respiratory failure, covid, rsv, flu, ) Admission/Observation Consideration of admission/observation: Escalation of care including admission/observation considered (upon arrival patient considered for admission) Consult Healthcare Provider Management of the patient was discussed with: Hospitalist Lab Data 01/16/24 09:27 01/16/24 09:27 Labs: Lab Results 01/16/24 01/16/24 01/16/24 Range/Units 09:27 10:21 11:10 WBC 20.5 H (4.8-10.8) X10*3/uL RBC 4.77 (4.20-5.50) X10*6/uL Hgb 14.2 (12.0-16.0) g/dl Hct 40.7 (37.0-47.0) % MCV 85.3 (80.0-98.0) fL MCH 29.8 (27.0-33.0) pg MCHC 34.9 (31.0-35.0) g/dl RDW 13.1 (11.0-16.0) % Plt Count 467 H D (160-400) X10*3/uL MPV 9.1 L (9.4-12.3) fL Immature Gran % (Auto) 3.4 H (0.0-0.4) % Neut % (Auto) 52.8 (45-73) % Lymph % (Auto) 33.7 (20-40) % Hart % (Auto) 8.4 (2-11) % Eos % (Auto) 1.2 (0-4) % Baso % (Auto) 0.5 (0-2) % Lymph # (Auto) 6.9 H (1.2-4.9) X10*3/uL [place] # (Auto) 1.7 H (0.1-1.2) X10*3/uL Eos # (Auto) 0.3 (0.0-0.4) X10*3/uL Baso # (Auto) 0.1 (0.0-0.2) X10*3/uL Abs Immat Gran (auto) 0.69 H (0.00-0.03) X10*3/uL Absolute Neuts (auto) 10.8 H (2.0-8.3) x10*3/uL Absolute Nucleated RBC 0.000 (0.0-0.012) X10*3/uL Nucleated RBC % (auto) 0.0 (0.0-0.2) /100WBC Smear Tech's Comments VERIFIED VBG pH 7.49 H (7.32-7.43) VBG pCO2 32 mmHg VBG pO2 71 mmHg VBG HCO3 24 (22-26) mmol/L VBG O2 Saturation 96.0 % VBG Base Excess 1.9 mmol/L Sodium 139 (135-145) mmol/L Potassium 3.2 L (3.3-5.1) mmol/L Chloride 104 (96-108) mmol/L Carbon Dioxide 21 L (22-29) mmol/L Anion Gap 17 (12-20) BUN 17 H (9-16) mg/dL Creatinine 0.75 (0.5-1.4) mg/dL Estim Creat Clear Calc 62.1 Estimated GFR > 60 Random Glucose 108 (60-115) mg/dL Lactic Acid 2.2 H* (0.5-2.0) mmol/L Calcium 9.1 (8.4-10.2) mg/dL Troponin I High Sens < 2.7 (<3.5-17.0) ng/L Influenza Type A (PCR) NEGATIVE (Negative) Influenza Type B (PCR) NEGATIVE (Negative) RSV RNA Qual (PCR) NEGATIVE (Negative) SARS-CoV-2 RNA (RT-PCR) NEGATIVE (Negative) Independent Interpretation I performed an independent interpretation of an: EKG (sinus [address] or twave changes) and Plain X-Ray (CXR: chronic chages) Radiology Impression Discussion of test interpretation with radiology: I have reviewed the radiologist's reading. (CXR reading as bilateral infiltrates) Independent Historian Clinical information obtained from an independent historian. History obtained from or confirmed by: Spouse and EMS Chronic Conditions Patient?s care impacted by: Other (COPD) Discharge Plan Discharge Clinical Impression: Acute exacerbation of chronic obstructive airways disease Patient Disposition: Admitted As Inpatient Print Language: Indonesian
[2024-01-16 11:55] LABS: Lactic Acid 2.2 mmol/L (0.5-2.0)
--- NOTE | 2024-01-16 12:29 | PC.NURSE ---
pt medicated per MAY-- no complaints of pain at this time. Pt pending admission.
--- NOTE | 2024-01-16 12:41 | P.HPHOSP_ITS ---
History of Present Illness Date of Service: 01/16/24 Chief Complaint: Shortness of breaths Patient is a 73yo female with history of COPD who presents with increased shortness of breath. She has had increasing SOB for weeks and is on a prednisone taper. Patient was discharged from [facility] on 03/2023 and at that time treated for upper respiratory infection with rhino virus and enterovirus being positive. She was treated with steroids and DuoNebs. She reports she got home but still did not feel well and continued to worsen with increasing shortness a breath. She denied chest pain, nausea, vomiting, diarrhea, fever. Chest x-ray showing increased patchy and streaky bibasilar opacities, she was placed on high-flow oxygen with oxygen saturation around 90%. In the ER patient was given albuterol, Solu-Medrol, potassium, Rocephin, azithromycin. Admitted for further management and treatment of community-acquired pneumonia. Review of Systems 2 Review of Systems: Denies any recent fever chills or decrease in appetite respiratory see HPI cardiovascular denied chest pain gastrointestinal denies any dysphagia abdominal pain nausea vomiting or diarrhea genitourinary denies any dysuria frequency or hematuria musculoskeletal denies any joint pain or swelling neuropsych denies any weakness or seizures all other systems reviewed are negative [facility] Medical History Hyperparathyroidism Fatty liver Pneumonia Osteopenia Acid reflux disease Basal cell carcinoma Asthma HLD (hyperlipidemia) HTN (hypertension) Surgical History H/O parathyroidectomy History of removal of both ovaries H/O section Hx of tonsillectomy H/O colonoscopy Social History Household Members: Spouse Housing: Condominium Do you presently have visiting nurse or other home services: No Alcohol intake: never Patient Tobacco Use Status: Never used Tobacco Second Hand Smoke Exposure: No Advance Directives: No Advance Directives Information Provided: Yes Advance Directives Date on File: 01/10/24 Do you have a plan to hurt others: No Plan service: No Meds Allergies Allergy/AdvReac Type Severity Reaction Status Date / Time lisinopril Allergy Severe Difficulty Verified 01/16/24 09:17 Breathing codeine Allergy Intermediate Unconscious Verified 01/16/24 09:17 Active Medications: Current Medications Azithromycin 500 mg/ Sodium (Chloride) 250 mls @ 125 mls/hr IV ONCE ONE Stop: 01/16/24 13:00 Last Admin: 01/16/24 11:34 Dose: 125 mls/hr Home Medications ?Medication ?Instructions ?Recorded ?Confirmed ?Last Taken ?Type amlodipine 10 mg tablet 10 mg PO BEDTIME 10/12/22 01/16/24 01/15/24 History montelukast 10 mg tablet 10 mg PO BEDTIME 10/12/22 01/16/24 01/15/24 History omega 5-vbt-mny-fish oil 1,000 mg 1 cap PO DAILY 10/12/22 01/16/24 01/15/24 History (120 mg-180 mg) capsule (Fish Oil) omeprazole 20 mg capsule,delayed 20 mg PO DAILY@0630 10/12/22 01/16/24 01/15/24 History release albuterol sulfate 90 mcg/actuation 2 puff inhalation Q4H PRN Wheezing 10/01/23 01/16/24 01/16/24 History aerosol inhaler budesonide-formoterol HFA 160 2 puff inhalation BID 10/01/23 01/16/24 01/16/24 History mcg-4.5 mcg/actuation aerosol inhaler (Symbicort) cholecalciferol (vitamin D3) 125 125 mcg PO DAILY 10/01/23 01/16/24 01/15/24 History mcg (5,000 unit) tablet (Vitamin D3) albuterol sulfate 2.5 mg/3 mL 2.5 mg inhalation Q6H PRN 01/10/24 01/16/24 01/15/24 History (0.083 %) solution for nebulization Shortness Of Breath Or Wheezing cetirizine 10 mg tablet (Zyrtec) 10 mg PO DAILY 01/10/24 01/16/24 01/15/24 History cyclosporine 0.05 % eye drops in a 1 drp ophthalmic (eye) Q12H PRN 01/10/24 01/16/24 01/15/24 History dropperette Dry Eye(S) Physical Exam 2 Vital Signs and Narrative: Vital Signs: Last Vital Signs Temp 98.0 F 01/16/24 09:16 Pulse 110 H 01/16/24 10:46 Resp 16 01/16/24 10:46 BP 165/96 H 01/16/24 09:26 Pulse Ox 90 L 01/16/24 10:46 O2 Del Method Nasal Cannula 01/16/24 10:46 O2 Flow Rate 8 01/16/24 10:46 Oxygen Flow Rate 15 01/16/24 09:16 BMI result Body Mass Index 30.0 Appearing in no acute distress head is normocephalic atraumatic eyes pupils are PERRLA sclera is anicteric mouth throat mucous membranes are intact and moist neck is supple no lymphadenopathy, no JVD noted lung sounds are clear to auscultation heart regular rate rhythm, clear S1, S2 positive bowel sounds, abdomen is soft, nontender neuro patient is alert x3, no focal deficits Results Labs 01/16/24 09:27 01/16/24 09:27 Labs: Laboratory Results - last 24 hr 01/16/24 01/16/24 01/16/24 09:27 10:21 11:10 MCV 85.3 MCH 29.8 MCHC 34.9 RDW 13.1 Plt Count 467 H D MPV 9.1 L Immature Gran % (Auto) 3.4 H Neut % (Auto) 52.8 Lymph % (Auto) 33.7 [place] % (Auto) 8.4 Eos % (Auto) 1.2 Baso % (Auto) 0.5 Lymph # (Auto) 6.9 H [place] # (Auto) 1.7 H Eos # (Auto) 0.3 Baso # (Auto) 0.1 Abs Immat Gran (auto) 0.69 H Absolute Neuts (auto) 10.8 H Absolute Nucleated RBC 0.000 Nucleated RBC % (auto) 0.0 Smear Tech's Comments VERIFIED VBG pH 7.49 H VBG pCO2 32 VBG pO2 71 VBG HCO3 24 VBG O2 Saturation 96.0 VBG Base Excess 1.9 Anion Gap 17 Estim Creat Clear Calc 62.1 Estimated GFR > 60 Random Glucose 108 Lactic Acid 2.2 H* Calcium 9.1 Troponin I High Sens < 2.7 Influenza Type A (PCR) NEGATIVE Influenza Type B (PCR) NEGATIVE RSV RNA Qual (PCR) NEGATIVE SARS-CoV-2 RNA (RT-PCR) NEGATIVE Imaging Radiologist's Impressions: Impressions Chest X-Ray 01/16/24 09:40 IMPRESSION: Increased patchy and streaky bibasilar opacities. This study was presented today January 16, 2024 for interpretation. Stat results provided at this time as requested by referring provider. Electronically signed by: Marilyn Coronado MD 01/16/2024 10:13 AM [facility] [place] Assessment and Plan (1) Acute asthma exacerbation: Status: Acute Plan 73-year-old female with a past medical history significant for moderate persistent asthma, hypertension, hyperlipidemia, hyperparathyroidism, and GERD, who presented to the ED due to cough, shortness of breath and wheezing. CAP No sepsis, tachycardia secondary to respiratory treatments, lactic acid also secondary to respiratory treatments for cytosis likely secondary to steroid use Chest x-ray showing increased patchy and streaky bibasilar opacity Flu, RSV, COVID negative Scheduled DuoNebs, IV Solu-Medrol Tessalon Perles for coughing fits Hypokalemia Repleted in ED follow HTN continue amlodipine GERD continue omeprazole Full code VTE prophylaxis with Lovenox Quality Stroke Does the patient have a stroke diagnosis?: No VTE Prior VTE?: No VTE Risk Level:: Medical - moderate - high VTE Device Contraindication: Treatment Not Indicated VTE Drug Contraindication: N/A - Med Ordered
--- NOTE | 2024-01-16 12:59 | PHA.MEDREC ---
Addendum entered by Roxann Medellin RPh 01/16/24 14:09: Reviewed by [facility] Original Note: Pharmacy Consult ? Medication Reconciliation Pharmacy has completed the medication reconciliation. Confirmed medications with patient. Patient confirmed she finished her Prednisone 20mg regimen yesterday. She states she only took her Albuterol Inhaler and Symbicort this morning and confirmed she took everything else yesterday.
[2024-01-16 13:12] LABS: Reflex Lactate? Lactic Acid Added
--- NOTE | 2024-01-16 13:49 | PC.RT ---
Pt Desat on 10L NC. RT deep suctioned and only got a scant mount of thin clear secretions. Pt has a dry constant cough with wheezes bilaterally despite multiple txs. RT requested HFNC administration for flow and humidification. okayed, orders placed and pt put on machine. PT uriah well. MOBILE HOME SERVICER Torres at bedside, aware of HFNC. RT requested an antitussive due to pt constant painful coughing fits. Pt stable at this time, uriah HFNC well.
--- NOTE | 2024-01-16 14:08 | PC.NURSE ---
pt medicated per MAY pt continues to have coughing fits-- cough suppressant requested
[2024-01-16] MEDS: Albuterol/Iprat 2.5/0.5MG 3 ML AMPUL.NEB INHALE ×2 (15:00→18:40)
[2024-01-16] MEDS: Benzonatate 100 MG CAPSULE PO ×2 (15:02→20:20)
[2024-01-16 15:48] LABS: Reflex Lactate? 2 Y
[2024-01-16 16:54] LABS: ~Lactic Acid-LAB USE ONLY 6.1 mmol/L (0.5-2.0)
[2024-01-16] MEDS: 0.9 % Sodium Chloride Flush 3 ML SYRINGE IVFLUSH ×2 (17:29→20:21)
[2024-01-16] MEDS: Enoxaparin Sodium 40 MG/0.4 ML SYRINGE SUBCUT (17:45)
--- NOTE | 2024-01-16 17:48 | PC.NURSE ---
pt medicated per MAR- pt awaiting transport to med/tele
[2024-01-16] MEDS: amLODIPine Besylate 10 MG TABLET PO (20:20)
[2024-01-16] MEDS: Montelukast Sodium 10 MG TABLET PO (20:20)
[2024-01-17] VITALS (10 sets, daily range): BP systolic 119–131; BP diastolic 55–61; PULSE 84–103; RESP 18–22; TEMP 36.4–37; O2SAT 89–94
[2024-01-17] MEDS: Albuterol Sulfate (0.083%) 2.5 MG/3 ML VIAL.NEB INHALE (01:04)
[2024-01-17] MEDS: Omeprazole 20 MG CAPSULE.DR PO (05:59)
[2024-01-17 06:22] LABS: MANUAL DIFF FLAG NO
[2024-01-17 06:40] LABS: Basophils Percent Auto 0.2 % (0-2); Hematocrit 36.4 % (37.0-47.0); Hemoglobin 12.4 g/dl (12.0-16.0); Imm Gran Abs Auto 0.34 X10*3/uL (0.00-0.03); Imm Gran Pct Auto 2.2 % (0.0-0.4); Lymphocytes Absolute Auto 2.4 X10*3/uL (1.2-4.9); Lymphocytes Percent Auto 15.6 % (20-40); Mean Corpuscular HGB Conc 34.1 g/dl (31.0-35.0); Mean Corpuscular Hemoglobin 29.2 pg (27.0-33.0); Mean Corpuscular Volume 85.6 fL (80.0-98.0); Mean Platelet Volume 9.5 fL (9.4-12.3); Monocytes Absolute Auto 1.1 X10*3/uL (0.1-1.2); Monocytes Percent Auto 7.4 % (2-11); Neutrophils Absolute Auto 11.5 x10*3/uL (2.0-8.3); Neutrophils Percent Auto 74.6 % (45-73); Platelet Count 355 X10*3/uL (160-400); Red Blood Count 4.25 X10*6/uL (4.20-5.50); Red Cell Distribution Width 13.3 % (11.0-16.0); White Blood Count 15.4 X10*3/uL (4.8-10.8)
[2024-01-17 06:45] LABS: Anion Gap 17 (12-20); Blood Urea Nitrogen 14 mg/dL (9-16); Calcium 9.2 mg/dL (8.4-10.2); Carbon Dioxide 22 mmol/L (22-29); Chloride 105 mmol/L (96-108); Creatinine Clr Calc Pharmacy 71.9; Estimated Glomerular Filt Rate > 60; Glucose Random 118 mg/dL (60-115); Potassium 3.6 mmol/L (3.3-5.1); Sodium 140 mmol/L (135-145)
[2024-01-17] MEDS: Albuterol/Iprat 2.5/0.5MG 3 ML AMPUL.NEB INHALE ×4 (07:29→18:43)
[2024-01-17] MEDS: Loratadine 10 MG TABLET PO (08:32)
[2024-01-17] MEDS: Cholecalciferol (Vitamin D3) 25 MCG TABLET 125 MCG PO (08:32)
[2024-01-17] MEDS: 0.9 % Sodium Chloride Flush 3 ML SYRINGE IVFLUSH ×3 (08:33→20:02)
--- NOTE | 2024-01-17 08:47 | MHC.CM.PN ---
CM met with Patient at bedside and addressed IMM with her, providing Patient with the original and a copy has been placed on the chart. Patient lives in an apartment with her /HCP/Marcin and she required no services nor DME REHABILITATION SERVICES COUNSELOR. Patient is agreeable to [facility]; CM has initiated and will follow for dc planning.PCP/OFFICE MACHINES TEACHER is Rachel Mays and will transport to home.
--- NOTE | 2024-01-17 10:45 | MHC.CM.PN ---
[facility] has accepted Patient ([facility]).
[2024-01-17] MEDS: Azithromycin 500 MG in 0.9 % Sodium Chloride 250 ML 125 MG IV (12:07)
[2024-01-17] MEDS: cefTRIAXone sodium 1 GM VIAL IVPUSH (12:07)
--- NOTE | 2024-01-17 12:30 | HO.PM.IMPN ---
Subjective Subjective Date of Service: 01/17/24 Interval History: Seen and examined this morning Follow-up for acute respiratory pneumonia breathing improving persistent cough, no fever Review of Systems Review of Systems: Yes all other systems are reviewed and are negative Constitutional Constitutional: Denies chills and Denies fever(s) Cardiovascular Cardiovascular: Denies chest pain, Denies palpitations and Reports dyspnea Respiratory Respiratory: Reports cough and Reports dyspnea Endocrine Endocrine: Denies palpitations Physical Exam Vital Signs: Vital Signs: Last Vital Signs Temp 98.5 F 01/17/24 11:46 Pulse 94 01/17/24 11:46 Resp 20 01/17/24 11:46 BP 119/59 L 01/17/24 11:46 Pulse Ox 91 L 01/17/24 11:46 O2 Del Method Nasal Cannula 01/17/24 11:46 O2 Flow Rate 6 01/17/24 11:46 Oxygen Flow Rate 15 01/16/24 09:16 BMI result Body Mass Index 31.2 Const: General: cooperative, comfortable, alert and awake Nutritional Appearance: overweight Orientation/consciousness: patient oriented x3 Resp: Effort & Inspection: normal respiratory effort, able to speak in complete sentences, no respiratory distress and no use of accessory muscles Cardio: Rate: regular rate GI: Inspection: No distended Palpation (GI): Soft to palpation Neuro: General: patient oriented x3, moves all extremities and CN's II-XI intact bilaterally Extrem: General: Yes no pedal edema Objective Data Active Medications Acetaminophen (Acetaminophen 325 Mg Tablet) 650 mg PO Q6H PRN PRN Reason: Pain, Mild (Pain Scale 1-3), fever or headache Albuterol Sulfate (Albuterol Sulfate (0.083%) 2.5 Mg/3 Ml Vial.Neb) 2.5 mg INHALE Q4H PRN PRN Reason: Shortness of Breath/Wheezing Last Admin: 01/17/24 01:04 Dose: 2.5 mg Documented By: RAI Albuterol/Ipratropium (Albuterol/Iprat 2.5/0.5mg 3 Ml Ampul.Neb) 3 ml INHALE RQ4H WHILE AWAKE [facility] Last Admin: 01/17/24 11:27 Dose: 3 ml Documented By: ANILA Amlodipine Besylate (Amlodipine Besylate 10 Mg Tablet) 10 mg PO BEDTIME [facility]; Protocol Last Admin: 01/16/24 20:20 Dose: 10 mg Documented By: LARY Benzonatate (Benzonatate 100 Mg Capsule) 100 mg PO TID PRN PRN Reason: Cough Last Admin: 01/16/24 20:20 Dose: 100 mg Documented By: LARY Calcium Carbonate (Calcium Carbonate 750 Mg Tab.Chew) 750 mg PO Q4H PRN PRN Reason: Heartburn Ceftriaxone Sodium (Ceftriaxone Sodium 1 Gm Vial) 1 gm IVPUSH Q24H [facility] Last Admin: 01/17/24 12:07 Dose: 1 gm Documented By: SHMUEL Enoxaparin Sodium (Enoxaparin Sodium 40 Mg/0.4 Ml Syringe) 40 mg SUBCUT Q24H [facility] Last Admin: 01/16/24 17:45 Dose: 40 mg Documented By: TARIQ Fluticasone/Vilanterol (Fluticasone/Vilanterol 200/25 Blst.W.Dev) 1 puff INHALE RDAILY [facility] Last Admin: 01/17/24 11:26 Dose: Not Given Documented By: ANILA Non-Admin Reason: Med Not Available Azithromycin 500 mg/ Sodium (Chloride) 250 mls @ 125 mls/hr IV Q24H [facility] Last Admin: 01/17/24 12:07 Dose: 125 mls/hr Documented By: SHMUEL Loratadine (Loratadine 10 Mg Tablet) 10 mg PO DAILY [facility] Last Admin: 01/17/24 08:32 Dose: 10 mg Documented By: SHMUEL Magnesium Hydroxide (Milk Of Magnesia 30 Ml Oral.Susp) 30 ml PO DAILY PRN PRN Reason: Constipation Melatonin (Melatonin 3 Mg Tablet) 6 mg PO BEDTIME PRN PRN Reason: Insomnia Montelukast Sodium (Montelukast Sodium 10 Mg Tablet) 10 mg PO BEDTIME [facility] Last Admin: 01/16/24 20:20 Dose: 10 mg Documented By: LARY Omeprazole (Omeprazole 20 Mg Capsule.Dr) 20 mg PO DAILY@0630 [facility] Last Admin: 01/17/24 05:59 Dose: 20 mg Documented By: LARY Ondansetron HCl (Ondansetron Hcl 4 Mg/2 Ml Vial) 4 mg IVPUSH Q8H PRN PRN Reason: Nausea and Vomiting Sodium Chloride (0.9 % Sodium Chloride Flush 3 Ml Syringe) 3 ml IVFLUSH QSHIFT [facility] Last Admin: 01/17/24 08:33 Dose: 3 ml Documented By: SHMUEL Vitamin D (Cholecalciferol (Vitamin D3) 25 Mcg Tablet) 125 mcg PO DAILY [facility] Last Admin: 01/17/24 08:32 Dose: 125 mcg Documented By: SHMUEL Labs 01/17/24 05:59 01/17/24 05:59 Labs: Laboratory Results - last 24 hr 01/16/24 01/16/24 01/17/24 13:44 16:00 05:59 MCV 85.6 MCH 29.2 MCHC 34.1 RDW 13.3 Plt Count 355 MPV 9.5 Immature Gran % (Auto) 2.2 H Neut % (Auto) 74.6 H Lymph % (Auto) 15.6 L [place] % (Auto) 7.4 Eos % (Auto) 0.0 Baso % (Auto) 0.2 Lymph # (Auto) 2.4 [place] # (Auto) 1.1 Eos # (Auto) 0.0 Baso # (Auto) 0.0 Abs Immat Gran (auto) 0.34 H Absolute Neuts (auto) 11.5 H Absolute Nucleated RBC 0.000 Nucleated RBC % (auto) 0.0 Anion Gap 17 Estim Creat Clear Calc 71.9 Estimated GFR > 60 Random Glucose 118 H Lactic Acid F/U @ 2Hr 4.0 H* Lactic Acid F/U @ 4Hr 6.1 H* Calcium 9.2 Assessment and Plan (1) Pneumonia: Status: Acute Plan 73-year-old female with a past medical history significant for moderate persistent asthma, hypertension, hyperlipidemia, hyperparathyroidism, and GERD, and recent admission for rhino/enterovirus URI who presented to the ED due to cough, shortness of breath and wheezing to have acute respiratory high-flow supplemental oxygen CAP recently +for entero/rhinovirus No sepsis, tachycardia secondary to respiratory treatments, lactic acid also secondary to respiratory treatments, leukocytosis likely secondary to steroid use white count trending down Chest x-ray showing increased patchy and streaky bibasilar opacity Flu, RSV, COVID negative Continue ceftriaxone, azithromycin Initially requiring high-flow, now weaned to 6 L; continue to wean supplemental oxygen as tolerated Continue supportive care Blood cultures pending Hypokalemia resolved with replacement HTN continue amlodipine GERD continue omeprazole Full code VTE prophylaxis with Lovenox Requires ongoing inpatient stay for management of pneumonia requiring supplemental oxygen and IV antibiotics Quality Stroke Does the patient have a stroke diagnosis?: No VTE Prior VTE?: No VTE Risk Level:: Medical - moderate - high VTE Device Contraindication: Treatment Not Indicated VTE Drug Contraindication: N/A - Med Ordered
[2024-01-17] MEDS: Enoxaparin Sodium 40 MG/0.4 ML SYRINGE SUBCUT (16:18)
[2024-01-17] MEDS: Benzonatate 100 MG CAPSULE PO (20:02)
[2024-01-17] MEDS: Montelukast Sodium 10 MG TABLET PO (20:02)
[2024-01-17] MEDS: amLODIPine Besylate 10 MG TABLET PO (20:02)
[2024-01-18] VITALS (16 sets, daily range): BP systolic 95–125; BP diastolic 57–69; PULSE 71–155; RESP 18–24; TEMP 36.2–36.7; O2SAT 88–92
--- NOTE | 2024-01-18 | ECG_ITS ---
Test Reason : change in rhythm Blood Pressure : / mmHG Vent. Rate : 080 BPM Atrial Rate : 080 BPM P-R Int : 150 ms QRS Dur : 078 ms QT Int : 372 ms P-R-T Axes : 018 014 015 degrees QTc Int : 429 ms Normal sinus rhythm Normal ECG When compared with ECG of 18-JAN-2024 10:47, Sinus rhythm has replaced Atrial fibrillation Vent. rate has decreased BY 78 BPM Non-specific change in ST segment in Inferior leads ST no longer depressed in Anterolateral leads T wave inversion less evident in Inferior leads Nonspecific T wave abnormality no longer evident in Lateral leads Referred By: Angie Rowe Electronically Signed By:ALBERTO EDGAR MD
[2024-01-18] MEDS: Albuterol Sulfate (0.083%) 2.5 MG/3 ML VIAL.NEB INHALE (02:21)
[2024-01-18] MEDS: Omeprazole 20 MG CAPSULE.DR PO (05:41)
--- NOTE | 2024-01-18 07:00 | CA_ITS ---
Transthoracic Echocardiogram Patient (Last, First, Middle): Deanne Lindquist S Gender: Female Date of : 1950 Age: 73 Procedure Date: 01/18/2024 Procedure Type: Transthoracic Echocardiogram Location: [facility] [place] Height: 157.48 cm Weight: 51.71 kg BSA: 1.51 m2 Heart Rate: bpm BP: 114 / 59 mmHg Content Writer: KENNY Referring MD: Angie EDWARDS Audio Visual Facilities Engineer: Kali Christiansen MD Symptoms: new afib Study Quality: Technically Difficult ECG Rhythm: Atrial Fibrillation Conclusions: - 1. Technically limited study 2. Normal LV ejection fraction 55-60% 3. Moderately dilated RV with preserved systolic function 4. Moderately dilated left atrium 5. Normal cardiac valvular Dopplers 6. Normal measured RV systolic pressure Findings Procedure Information Contrast agent, definity, is being given per protocol without apparent complications. Left Ventricle Normal left ventricular size, thickness, and systolic function. The visually estimated ejection fraction is between 55-60%. Diastolic function is indeterminate on the basis of available data. Right Ventricle Moderately increased right ventricular cavity size. There is normal right ventricular systolic function. Atria The left atrium is moderately dilated. Interatrial shunt cannot be excluded. The right atrium was not well visualized. Aortic Valve The aortic valve was not well visualized. There is no aortic valve stenosis. There is no aortic valve regurgitation. Mitral Valve Likely normal mitral valve structure and function. There is no mitral valve regurgitation. There is no mitral valve stenosis. Pulmonic Valve The pulmonic valve was not well visualized. Tricuspid Valve The tricuspid valve was not well visualized. Tricuspid regurgitation envelope is inadequate for calculation of right ventricular systolic pressure. The right ventricular systolic pressure is 23 mmHg. There is no evidence of pulmonary hypertension. Great Vessels The aorta was not well visualized. The pulmonary artery was not well visualized. Venous The inferior vena cava is normal in size and collapses less than 50% with inspiration. Pericardium/Pleural The pericardium was not well visualized. Prior Study Comparison No prior study available for comparison. Measurements 2D Linear Measurements IVSd: 1.28 0.6-0.9/0.6-1.0 cm LVIDd: 3.01 3.9-5.3/4.2-5.9 cm LVIDd Index: 1.99 2.4-3.2/2.2-3.1 cm/m2 LVIDs: 1.99 2.0-3.6 cm LVPWd: 1.22 0.7-1.1 cm LA Diam: 4.50 2.7-3.8/3.0-4.0 cm LAIDs Index: 2.98 1.5-2.3 cm/m2 LV Mass: 145.61 67-162/88-224 g LV Mass Index: 96.43 43-95/49-115 g/m2 LVOT Diam: 2.00 3.0+(-)1.3 cm Mitral Valve MV Pk E: 0.90 MV Decel Time: 143.00 E'Lateral: 11.20 E'Medial: 8.49 E/E' Med: 10.60 E/E' Lat: 8.00 PHT: 42.00 MVA PHT: 5.24 Decel Bailey: 6.28 Aortic Valve AoV Pk Thanh: 0.99 AoV Mn Thanh: 0.70 AoV VTI: 0.22 AoV Pk Grad: 4.00 Aov Mn Grad: 2.00 NAY Cont.VTI: 2.04 LVOT LVOT Pk Thanh: 0.67 LVOT Mn Thanh: 0.44 LVOT VTI: 0.14 LVOT Pk Grad: 2.00 LVOT Mn Grad: 1.00 LVOT Diam: 2.00 LVOT Area: 3.14 Diastolic Function MV Pk E: 0.90 E'Medial: 8.49 E/E' Med: 10.60 E' Laterial: 11.20 E/E' Lat: 8.00 Right Ventricle TAPSE (mm): 18.90 TVS' Thanh: 9.25 Tricuspid Valve TR Pk Thahn: 1.91 TR Pk Grad: 15.00 RA Press: 8.00 RVSP: 23.00 Great Vessels Aorta Sinus of Valsalva: 2.90 2.0-3.5 cm Ao Asc: 2.80 2.1-3.4 cm Pulmonary Valve PV Pk Thanh: 0.71 Peak PV Grad: 2.00 Updated in Other Vendor System with Status of Final Kali Christiansen MD electronically signed on 01/18/2024 3:32:28 PM with status of Final
[2024-01-18] MEDS: Fluticasone/Vilanterol 200/25 BLST.W.DEV 1 PUFF INHALE (07:42)
[2024-01-18] MEDS: Albuterol/Iprat 2.5/0.5MG 3 ML AMPUL.NEB INHALE ×2 (07:44→15:16)
[2024-01-18] MEDS: Cholecalciferol (Vitamin D3) 25 MCG TABLET 125 MCG PO (08:36)
[2024-01-18] MEDS: Loratadine 10 MG TABLET PO (08:36)
[2024-01-18] MEDS: 0.9 % Sodium Chloride Flush 3 ML SYRINGE IVFLUSH (08:38)
[2024-01-18] MEDS: guaiFENesin DM 100/10/5 ML 5 ML SYRUP PO (10:44)
[2024-01-18] MEDS: Azithromycin 500 MG in 0.9 % Sodium Chloride 250 ML 125 MG IV (10:44)
[2024-01-18] MEDS: cefTRIAXone sodium 1 GM VIAL IVPUSH (10:44)
--- NOTE | 2024-01-18 10:45 | P.PNIM_ITS ---
Subjective Subjective Date of Service: 01/18/24 Interval History: Seen and examined this morning Follow-up for pneumonia Slowly improving, supplemental oxygen down to 6 L today Significant coughing prevented continuous sleep overnight Review of Systems Review of Systems: Yes all other systems are reviewed and are negative Constitutional Constitutional: Denies chills and Denies fever(s) Cardiovascular Cardiovascular: Denies chest pain, Denies palpitations and Reports dyspnea Respiratory Respiratory: Reports cough and Reports dyspnea Gastrointestinal Gastrointestinal: Denies abdominal pain, Denies nausea and Denies vomiting Endocrine Endocrine: Denies palpitations Physical Exam 2 Vital Signs: Vital Signs: Last Vital Signs Temp 97.2 F 01/18/24 07:52 Pulse 91 01/18/24 07:52 Resp 20 01/18/24 07:52 BP 121/67 01/18/24 07:52 Pulse Ox 92 01/18/24 07:52 O2 Del Method Nasal Cannula 01/18/24 07:52 O2 Flow Rate 6 01/18/24 07:52 Oxygen Flow Rate 15 01/16/24 09:16 BMI result Body Mass Index 31.2 Const: General: cooperative, comfortable, alert and awake Nutritional Appearance: overweight Orientation/consciousness: patient oriented x3 Resp: Other: no wheezing or rales Effort & Inspection: normal respiratory effort, able to speak in complete sentences, no respiratory distress and no use of accessory muscles Cardio: Rate: regular rate GI: Inspection: No distended Palpation (GI): Soft to palpation Neuro: General: patient oriented x3, moves all extremities and CN's II-XI intact bilaterally Extrem: General: Yes no pedal edema Objective Data Active Medications Acetaminophen (Acetaminophen 325 Mg Tablet) 650 mg PO Q6H PRN PRN Reason: Pain, Mild (Pain Scale 1-3), fever or headache Albuterol Sulfate (Albuterol Sulfate (0.083%) 2.5 Mg/3 Ml Vial.Neb) 2.5 mg INHALE Q4H PRN PRN Reason: Shortness of Breath/Wheezing Last Admin: 01/18/24 02:21 Dose: 2.5 mg Documented By: MATTHEW Albuterol/Ipratropium (Albuterol/Iprat 2.5/0.5mg 3 Ml Ampul.Neb) 3 ml INHALE RQ4H WHILE AWAKE [facility] Last Admin: 01/18/24 07:44 Dose: 3 ml Documented By: ANILA Amlodipine Besylate (Amlodipine Besylate 10 Mg Tablet) 10 mg PO BEDTIME [facility]; Protocol Last Admin: 01/17/24 20:02 Dose: 10 mg Documented By: LARY Benzonatate (Benzonatate 100 Mg Capsule) 100 mg PO TID PRN PRN Reason: Cough Last Admin: 01/17/24 20:02 Dose: 100 mg Documented By: LARY Calcium Carbonate (Calcium Carbonate 750 Mg Tab.Chew) 750 mg PO Q4H PRN PRN Reason: Heartburn Ceftriaxone Sodium (Ceftriaxone Sodium 1 Gm Vial) 1 gm IVPUSH Q24H [facility] Last Admin: 01/17/24 12:07 Dose: 1 gm Documented By: SHMUEL Docusate Sodium (Docusate Sodium 100 Mg Capsule) 100 mg PO BEDTIME [facility] Enoxaparin Sodium (Enoxaparin Sodium 40 Mg/0.4 Ml Syringe) 40 mg SUBCUT Q24H [facility] Last Admin: 01/17/24 16:18 Dose: 40 mg Documented By: SHMUEL Fluticasone/Vilanterol (Fluticasone/Vilanterol 200/25 Blst.W.Dev) 1 puff INHALE RDAILY [facility] Last Admin: 01/18/24 07:42 Dose: 1 puff Documented By: ANILA Guaifenesin/Dextromethorphan (Guaifenesin Dm 100/10/5 Ml 5 Ml Syrup) 5 ml PO Q8H [facility] Azithromycin 500 mg/ Sodium (Chloride) 250 mls @ 125 mls/hr IV Q24H [facility] Last Infusion: 01/17/24 14:28 Dose: Infused Documented By: SHMUEL Loratadine (Loratadine 10 Mg Tablet) 10 mg PO DAILY [facility] Last Admin: 01/18/24 08:36 Dose: 10 mg Documented By: LIV Melatonin (Melatonin 3 Mg Tablet) 6 mg PO BEDTIME PRN PRN Reason: Insomnia Montelukast Sodium (Montelukast Sodium 10 Mg Tablet) 10 mg PO BEDTIME [facility] Last Admin: 01/17/24 20:02 Dose: 10 mg Documented By: LARY Omeprazole (Omeprazole 20 Mg Capsule.) 20 mg PO DAILY@0630 [facility] Last Admin: 01/18/24 05:41 Dose: 20 mg Documented By: LARY Ondansetron HCl (Ondansetron Hcl 4 Mg/2 Ml Vial) 4 mg IVPUSH Q8H PRN PRN Reason: Nausea and Vomiting Polyethylene Glycol (Polyethylene Glycol 3350 17 Gm Powd.Pack) 17 gm PO DAILY PRN PRN Reason: Constipation Sodium Chloride (0.9 % Sodium Chloride Flush 3 Ml Syringe) 3 ml IVFLUSH QSHIFT [facility] Last Admin: 01/18/24 08:38 Dose: 3 ml Documented By: LIV Vitamin D (Cholecalciferol (Vitamin D3) 25 Mcg Tablet) 125 mcg PO DAILY [facility] Last Admin: 01/18/24 08:36 Dose: 125 mcg Documented By: LIV Labs 01/17/24 05:59 01/17/24 05:59 Microbiology Microbiology Results: Microbiology 01/16/24 09:26 Blood Culture - Preliminary Blood - Venous No growth after 24 hours. 01/16/24 11:10 Blood Culture - Preliminary Blood - Venous No growth after 24 hours. Assessment and Plan (1) Pneumonia: Status: Acute Plan 73-year-old female with a past medical history significant for moderate persistent asthma, hypertension, hyperlipidemia, hyperparathyroidism, and GERD, and recent admission for rhino/enterovirus URI who presented to the ED due to cough, shortness of breath and wheezing to have acute respiratory high-flow supplemental oxygen CAP recently +for entero/rhinovirus No sepsis, tachycardia secondary to respiratory treatments, lactic acid also secondary to respiratory treatments, leukocytosis likely secondary to recent steroid use white count trending down Flu, RSV, COVID negative Continue ceftriaxone, azithromycin, started 01/15 Initially requiring high-flow, now weaned to 6 L; continue to wean supplemental oxygen as tolerated Continue supportive care Blood cultures negative to date Hypokalemia resolved with replacement HTN continue amlodipine GERD continue omeprazole Full code VTE prophylaxis with Lovenox Requires ongoing inpatient stay for management of pneumonia requiring supplemental oxygen and IV antibiotics Quality Stroke Does the patient have a stroke diagnosis?: No VTE Prior VTE?: No VTE Risk Level:: Medical - moderate - high VTE Device Contraindication: Treatment Not Indicated VTE Drug Contraindication: N/A - Med Ordered
--- NOTE | 2024-01-18 10:47 | ECG_ITS ---
Test Reason : tachy Blood Pressure : / mmHG Vent. Rate : 158 BPM Atrial Rate : 000 BPM P-R Int : 000 ms QRS Dur : 082 ms QT Int : 286 ms P-R-T Axes : 000 017 -42 degrees QTc Int : 463 ms Atrial fibrillation with rapid ventricular response Marked ST abnormality, possible lateral subendocardial injury Abnormal ECG When compared with ECG of 16-JAN-2024 09:28, Atrial fibrillation has replaced Sinus rhythm Nonspecific T wave abnormality now evident in Anterolateral leads Referred By: Angie Rowe Electronically Signed By:ALBERTO EDGAR MD
[2024-01-18] MEDS: Metoprolol Tartrate 5 MG/5 ML VIAL IVPUSH (11:07)
--- NOTE | 2024-01-18 11:21 | PC.NURSE ---
Patient C/O heart palpitations. Patient placed on tele monitoring. HR 160s-170s. EKG showing new afib with rvr. Provider notified, at bedside to evaluate patient. New orders for 5mg IVP metoprolol, cardiology consult, PO eliquis and echo to be done. BP: 114/59. Metoprolol administered at 1107- HR at this time 120s-130s.
[2024-01-18 11:42] LABS: Anion Gap 13 (12-20); Blood Urea Nitrogen 10 mg/dL (9-16); Calcium 9.1 mg/dL (8.4-10.2); Carbon Dioxide 23 mmol/L (22-29); Chloride 106 mmol/L (96-108); Creatinine Clr Calc Pharmacy 59.3; Estimated Glomerular Filt Rate > 60; Glucose Random 170 mg/dL (60-115); Magnesium 2.1 mg/dL (1.6-2.6); Sodium 139 mmol/L (135-145)
[2024-01-18 12:06] LABS: TSH reflex Free T4 2.88 uIU/mL (0.32-4.0)
[2024-01-18] MEDS: Metoprolol Tartrate 25 MG TABLET PO (12:13)
[2024-01-18] MEDS: Apixaban 5 MG TABLET PO ×2 (12:13→21:03)
--- NOTE | 2024-01-18 13:19 | MHC.CM.PN ---
EMR reviewed and per MD rounds, pt is not medically cleared for discharge due to management of pneumonia.
[2024-01-18] MEDS: ondansetron HCL 4 MG/2 ML VIAL IVPUSH (13:27)
[2024-01-18] MEDS: dilTIAZem HCL 125 MG in 0.9 % Sodium Chloride 100 ML 10 MG IVCONT (13:31)
--- NOTE | 2024-01-18 14:09 | P.CONCA_ITS ---
History of Present Illness History of Present Illness Date of Service: 01/18/24 Requesting physician: Angie Rowe Consult reason: atrial fibrillation Chief complaint: COPD, PNA Narrative: I was consulted to see Deanne in cardiology consultation today for new onset atrial fibrillation. She is a pleasant 73-year-old female with prior history of moderate persistent asthma, recently admitted with asthma/COPD exacerbation and was discharged after diagnose with a viral illness. Patient was then on a tapering dose of steroids however came back to the hospital because she had progressively more shortness of breath and wheezing. She felt the asthma was not getting better. She came to the hospital with admitted noted to have lactic acidosis as well as leukocytosis. Chest x-ray consistent with possibility of pneumonia. This morning patient started having symptoms of palpitation rapid heart rate and subsequent EKG confirmed presence of atrial fibrillation rapid ventricular response. She was then put on cardiac telemetry and has been started on Cardizem drip which is currently increase to 15 mg an hour. Heart rate has improved and her symptoms of palpitations have improved. However she complains of nausea. She also continues to have shortness of breath. No fever no chills. She has no clear orthopnea, PND. No chest pain. No lightheadedness, syncope. She has no prior history of cardiac arrhythmias or cardiac issues. No history of atrial fibrillation. She has prior history of hypertension and is generally well controlled on amlodipine therapy. No prior history of stroke or myocardial infarction. Review of Systems 2 Eyes: Eyes: Reports no additional eye complaints Cardiovascular: Cardiovascular: Denies chest pain, Denies leg edema, Denies lightheadedness, Denies Loss of Consciousness, Reports palpitations and Reports dyspnea on exertion Respiratory: Respiratory: Reports cough, Reports dyspnea on exertion and Reports wheezing Gastrointestinal: Gastrointestinal: Reports no additional gastrointestinal complaints Genitourinary: Genitourinary: Reports no additional female genitourinary complaints Musculoskeletal: Musculoskeletal: Reports no additional musculoskeletal complaints Psychiatric: Psychiatric: Reports no additional psychiatric complaints Endocrine: Endocrine: Reports palpitations Allergic/Immunologic: Allergic/Immunologic: Reports wheezing PMFSH Past Medical History Medical History Hyperparathyroidism Fatty liver Pneumonia Osteopenia Acid reflux disease Basal cell carcinoma Asthma HLD (hyperlipidemia) HTN (hypertension) Surgical History Surgical History H/O parathyroidectomy History of removal of both ovaries H/O section Hx of tonsillectomy H/O colonoscopy Social History Social History Household Members: Spouse Housing: Condominium Do you presently have visiting nurse or other home services: No Alcohol intake: never Patient Tobacco Use Status: Never used Tobacco Second Hand Smoke Exposure: No Advance Directives Date on File: 01/10/24 service: No Meds Allergies Allergy/AdvReac Type Severity Reaction Status Date / Time lisinopril Allergy Severe Difficulty Verified 01/16/24 09:17 Breathing codeine Allergy Intermediate Unconscious Verified 01/16/24 09:17 Active Medications: Current Medications Acetaminophen (Acetaminophen 325 Mg Tablet) 650 mg PO Q6H PRN PRN Reason: Pain, Mild (Pain Scale 1-3), fever or headache Albuterol Sulfate (Albuterol Sulfate (0.083%) 2.5 Mg/3 Ml Vial.Neb) 2.5 mg INHALE Q4H PRN PRN Reason: Shortness of Breath/Wheezing Last Admin: 01/18/24 02:21 Dose: 2.5 mg Albuterol/Ipratropium (Albuterol/Iprat 2.5/0.5mg 3 Ml Ampul.Neb) 3 ml INHALE RQ4H WHILE AWAKE [facility] Last Admin: 01/18/24 11:24 Dose: Not Given Amlodipine Besylate (Amlodipine Besylate 10 Mg Tablet) 10 mg PO BEDTIME [facility]; Protocol Last Admin: 01/17/24 20:02 Dose: 10 mg Apixaban (Apixaban 5 Mg Tablet) 5 mg PO BID [facility] Last Admin: 01/18/24 12:13 Dose: 5 mg Benzocaine (Throat Lozenge, Medicated Lozenge) 1 lozenge MUCOUS MEM Q2H PRN PRN Reason: Sore Throat Benzonatate (Benzonatate 100 Mg Capsule) 100 mg PO TID PRN PRN Reason: Cough Last Admin: 01/17/24 20:02 Dose: 100 mg Calcium Carbonate (Calcium Carbonate 750 Mg Tab.Chew) 750 mg PO Q4H PRN PRN Reason: Heartburn Ceftriaxone Sodium (Ceftriaxone Sodium 1 Gm Vial) 1 gm IVPUSH Q24H [facility] Last Admin: 01/18/24 10:44 Dose: 1 gm Docusate Sodium (Docusate Sodium 100 Mg Capsule) 100 mg PO BEDTIME [facility] Fluticasone/Vilanterol (Fluticasone/Vilanterol 200/25 Blst.W.Dev) 1 puff INHALE RDAILY [facility] Last Admin: 01/18/24 07:42 Dose: 1 puff Guaifenesin/Dextromethorphan (Guaifenesin Dm 200/20/10 Ml 10 Ml Syrup) 10 ml PO Q6H [facility] Azithromycin 500 mg/ Sodium (Chloride) 250 mls @ 125 mls/hr IV Q24H [facility] Last Infusion: 01/18/24 13:31 Dose: Infused Diltiazem HCl 125 mg/ Sodium (Chloride) 125 mls @ 0 mls/hr IVCONT .Q0M [facility]; Protocol Last Titration: 01/18/24 14:08 Dose: 15 mg/hr, 15 mls/hr Loratadine (Loratadine 10 Mg Tablet) 10 mg PO DAILY [facility] Last Admin: 01/18/24 08:36 Dose: 10 mg Melatonin (Melatonin 3 Mg Tablet) 6 mg PO BEDTIME PRN PRN Reason: Insomnia Montelukast Sodium (Montelukast Sodium 10 Mg Tablet) 10 mg PO BEDTIME [facility] Last Admin: 01/17/24 20:02 Dose: 10 mg Omeprazole (Omeprazole 20 Mg Capsule.Dr) 20 mg PO DAILY@0630 [facility] Last Admin: 01/18/24 05:41 Dose: 20 mg Ondansetron HCl (Ondansetron Hcl 4 Mg/2 Ml Vial) 4 mg IVPUSH Q8H PRN PRN Reason: Nausea and Vomiting Last Admin: 01/18/24 13:27 Dose: 4 mg Polyethylene Glycol (Polyethylene Glycol 3350 17 Gm Powd.Pack) 17 gm PO DAILY PRN PRN Reason: Constipation Potassium Chloride (Potassium Chloride Er 20 Meq Tab.Er.Prt) 40 meq PO BID [facility] Stop: 01/18/24 21:01 Sodium Chloride (0.9 % Sodium Chloride Flush 3 Ml Syringe) 3 ml IVFLUSH QSHIFT [facility] Last Admin: 01/18/24 08:38 Dose: 3 ml Vitamin D (Cholecalciferol (Vitamin D3) 25 Mcg Tablet) 125 mcg PO DAILY [facility] Last Admin: 01/18/24 08:36 Dose: 125 mcg Home Medications ?Medication ?Instructions ?Recorded ?Confirmed ?Last Taken ?Type amlodipine 10 mg tablet 10 mg PO BEDTIME 10/12/22 01/16/24 01/15/24 History montelukast 10 mg tablet 10 mg PO BEDTIME 10/12/22 01/16/24 01/15/24 History omega 5-mal-pwd-fish oil 1,000 mg 1 cap PO DAILY 10/12/22 01/16/24 01/15/24 History (120 mg-180 mg) capsule (Fish Oil) omeprazole 20 mg capsule,delayed 20 mg PO DAILY@0630 10/12/22 01/16/24 01/15/24 History release albuterol sulfate 90 mcg/actuation 2 puff inhalation Q4H PRN Wheezing 10/01/23 01/16/24 01/16/24 History aerosol inhaler budesonide-formoterol HFA 160 2 puff inhalation BID 10/01/23 01/16/24 01/16/24 History mcg-4.5 mcg/actuation aerosol inhaler (Symbicort) cholecalciferol (vitamin D3) 125 125 mcg PO DAILY 10/01/23 01/16/24 01/15/24 History mcg (5,000 unit) tablet (Vitamin D3) albuterol sulfate 2.5 mg/3 mL 2.5 mg inhalation Q6H PRN 01/10/24 01/16/24 01/15/24 History (0.083 %) solution for nebulization Shortness Of Breath Or Wheezing cetirizine 10 mg tablet (Zyrtec) 10 mg PO DAILY 01/10/24 01/16/24 01/15/24 History cyclosporine 0.05 % eye drops in a 1 drp ophthalmic (eye) Q12H PRN 01/10/24 01/16/24 01/15/24 History dropperette Dry Eye(S) Physical Exam 2 Vital Signs: Vital Signs: Last Vital Signs Temp 97.2 F 01/18/24 07:52 Pulse 118 H 01/18/24 13:35 Resp 20 01/18/24 10:59 BP 111/58 L 01/18/24 13:35 Pulse Ox 90 L 01/18/24 13:35 O2 Del Method Nasal Cannula 01/18/24 13:35 O2 Flow Rate 10 01/18/24 13:35 Oxygen Flow Rate 15 01/16/24 09:16 BMI result Body Mass Index 31.2 Const: General: cooperative, alert, awake, in distress mild and respiratory and anxious Nutritional Appearance: obese Orientation/consciousness: p atient oriented x3 HEENT: Head: Yes normocephalic and Yes atraumatic Neck: Neck: Yes trachea midline, Yes supple and Yes no JVD Resp: Effort & Inspection: normal respiratory effort and tachypneic A uscultation: bronchovesicular breath sounds on the left (Based) Cardio: Jugular venous distension: no JVD Rate: tachycardic Rhythm: a bnormal rhythm irregularly irregular Heart sounds: S1 normal heart sound present, S2 normal heart sound present, no click, no gallops and no murmurs GI: Auscultation: normal bowel sounds Skin: General skin exam: no rashes or lesions noted Neuro: General: patient oriented x3 and no focal motor deficits Extrem: General: Yes no clubbing, cyanosis or edema Objective Labs and Meds 01/17/24 05:59 01/18/24 11:17 Lab results: Laboratory Results - last 24 hr 01/18/24 11:17 Sodium 139 Potassium 3.0 L Chloride 106 Carbon Dioxide 23 Anion Gap 13 BUN 10 Creatinine 0.80 Estim Creat Clear Calc 59.3 Estimated GFR > 60 Random Glucose 170 H Calcium 9.1 Magnesium 2.1 TSH 2.88 Assessment and Plan (1) Atrial fibrillation with rapid ventricular response: Status: Acute Atrial fibrillation with rapid ventricular response, new onset highly symptomatic. Clinically does appear to be in overt heart failure but although I think that she would benefit from low-dose Lasix. I agree with IV Cardizem for rate control at this point time. Also will give her digoxin 0.25 mg IV push x3 doses. Continue monitor full disclosure cardiac telemetry. CHADSVASC score of 3. Agree with full oral anticoagulation. Echo is being performed and will review it. Continue treatment for underlying pulmonary exacerbation and pneumonia. Consider switching her DuoNeb to Xopenex therapy. Continue supportive care. Will follow with you Procedures Date of Service Date of Service: 01/18/24
[2024-01-18] MEDS: Furosemide 40 MG/4 ML VIAL IVPUSH (14:37)
[2024-01-18] MEDS: Digoxin 0.5 MG/2 ML AMPUL 0.25 MG IVPUSH (15:05)
[2024-01-18] MEDS: Potassium Chloride ER 20 MEQ TAB.ER.PRT 40 MEQ PO ×2 (15:06→21:03)
--- NOTE | 2024-01-18 15:41 | PC.NURSE ---
1330 Patient having increasing SOB, 02 sat between 85-88% on 10 L [place]. Patient titrated to 15L oxymask- 02 sat 86%. Lungs course/ expiratory wheezing throughout. Respiratory and provider notified, both at bedside to evaluate patient. Patient now on high flow 50L, 55%. 40mg IV lasix administered. Cardizem drip running at 15mg/hr. HR at this time 100-110. Echo pending. Chest CT angio ordered.
[2024-01-18] MEDS: Benzonatate 100 MG CAPSULE PO ×2 (16:54→21:08)
[2024-01-18] MEDS: levalbuterol HCL 1.25 MG/3 ML VIAL.NEB INHALE ×2 (18:35→23:23)
--- NOTE | 2024-01-18 18:40 | PC.NURSE ---
Assumed care of patient at 1500. Pt remains neurologically intact. On high flow O2 sats high 80's to low 90's, LS with rhonchi all nur occasional loose cough noted. Afib on tele cardizem drip titrated per HR, converted to NSR approximately 1600. BP soft in 90's Angie EDWARDS notified EKG completed per order cardizem drip dc'd. OOB to commode with assist voided 800 ml. Pt unable to tolerate laying flat for CT at this time provider aware will reassess later in shift.
[2024-01-18] MEDS: guaiFENesin DM 200/20/10 ML 10 ML SYRUP PO (21:01)
[2024-01-18] MEDS: Montelukast Sodium 10 MG TABLET PO (21:03)
[2024-01-18] MEDS: Melatonin 3 MG TABLET 6 MG PO (21:08)
[2024-01-18] MEDS: Dronedarone HCl 400 MG TABLET PO (21:13)
[2024-01-19] VITALS (14 sets, daily range): BP systolic 101–132; BP diastolic 51–67; PULSE 72–95; RESP 16–20; TEMP 36.4–36.9; O2SAT 90–97
[2024-01-19] MEDS: 0.9 % Sodium Chloride Flush 3 ML SYRINGE IVFLUSH ×3 (00:51→18:23)
[2024-01-19] MEDS: guaiFENesin DM 200/20/10 ML 10 ML SYRUP PO ×4 (00:58→20:12)
[2024-01-19] MEDS: levalbuterol HCL 1.25 MG/3 ML VIAL.NEB INHALE ×6 (03:05→23:18)
[2024-01-19] MEDS: Doxycycline Hyclate 100 MG in 0.9 % Sodium Chloride 250 ML 166.67 MG IV (05:08)
[2024-01-19] MEDS: Omeprazole 20 MG CAPSULE.DR PO (05:11)
[2024-01-19 07:13] LABS: Hematocrit 38.4 % (37.0-47.0); Hemoglobin 12.6 g/dl (12.0-16.0); Mean Corpuscular HGB Conc 32.8 g/dl (31.0-35.0); Mean Corpuscular Hemoglobin 29.1 pg (27.0-33.0); Mean Corpuscular Volume 88.7 fL (80.0-98.0); Mean Platelet Volume 9.2 fL (9.4-12.3); Platelet Count 349 X10*3/uL (160-400); Red Blood Count 4.33 X10*6/uL (4.20-5.50); Red Cell Distribution Width 13.3 % (11.0-16.0); White Blood Count 14.5 X10*3/uL (4.8-10.8)
[2024-01-19 07:20] LABS: Anion Gap 16 (12-20); Blood Urea Nitrogen 12 mg/dL (9-16); Carbon Dioxide 23 mmol/L (22-29); Chloride 105 mmol/L (96-108); Creatinine Clr Calc Pharmacy 59.3; Estimated Glomerular Filt Rate > 60; Glucose Random 99 mg/dL (60-115); Potassium 3.9 mmol/L (3.3-5.1); Sodium 140 mmol/L (135-145)
[2024-01-19] MEDS: Fluticasone/Vilanterol 200/25 BLST.W.DEV 1 PUFF INHALE (07:27)
[2024-01-19 07:31] LABS: B Type Natriuretic Peptide 133 pg/mL (<100)
--- NOTE | 2024-01-19 09:20 | P.PNCA_ITS ---
Subjective Subjective Date of Service: 01/19/24 Principal diagnosis: Paroxysmal atrial fibrillation Interval history: Patient is feeling a lot better. Says shortness of breath is gradually improving. Converted back to sinus rhythm. Started on Multaq. Maintaining rhythm. Denies any palpitation or chest pain currently. Review of Systems Constitutional: Reports no additional constitutional complaints Cardiovascular: Denies chest pain, Denies rapid heart rate, Denies lightheadedness, Denies palpitations and Reports dyspnea on exertion Respiratory: Reports cough, Reports excessive phlegm production, Reports dyspnea on exertion and Reports wheezing Gastrointestinal: Reports no additional gastrointestinal complaints Musculoskeletal: Reports no additional musculoskeletal complaints Reports system reviewed and no additional complaints, except as documented Endocrine: Denies palpitations Allergic/Immunologic: Reports wheezing Physical Exam Vital Signs: Last Vital Signs Temp 97.6 F 01/19/24 07:35 Pulse 73 01/19/24 07:35 Resp 20 01/19/24 07:35 BP 109/64 01/19/24 07:35 Pulse Ox 97 01/19/24 07:35 O2 Del Method High Flow Nasal Cannula 01/19/24 03:25 O2 Flow Rate 55 01/19/24 07:35 FiO2 55 01/19/24 07:35 Oxygen Flow Rate 15 01/16/24 09:16 BMI result Body Mass Index 31.2 Const General: cooperative, alert, awake, in distress mild and respiratory and anxious Nutritional Appearance: obese Orientation/consciousness: patient oriented x3 Neck Neck: Yes trachea midline, Yes supple and Yes no JVD Resp Effort & Inspection: normal respiratory effort and tachypneic Auscultation: bronchovesicular breath sounds on the left (Based) Cardio Jugular venous distension: no JVD Rate: regular rate Rhythm: regular rhythm Heart sounds: S1 normal heart sound present, S2 normal heart sound present, no click, no gallops and no murmurs GI Auscultation: normal bowel sounds Skin General skin exam: no rashes or lesions noted Neuro General: patient oriented x3 and no focal motor deficits Extrem General: Yes no clubbing, cyanosis or edema Objective Labs and Meds 01/19/24 06:58 01/19/24 06:58 Lab results: Laboratory Results - last 24 hr 01/18/24 01/19/24 11:17 06:58 WBC 14.5 H RBC 4.33 Hgb 12.6 Hct 38.4 MCV 88.7 MCH 29.1 MCHC 32.8 RDW 13.3 Plt Count 349 MPV 9.2 L Absolute Nucleated RBC 0.000 Nucleated RBC % (auto) 0.0 Sodium 139 140 Potassium 3.0 L 3.9 D Chloride 106 105 Carbon Dioxide 23 23 Anion Gap 13 16 BUN 10 12 Creatinine 0.80 0.80 Estim Creat Clear Calc 59.3 59.3 Estimated GFR > 60 > 60 Random Glucose 170 H 99 Calcium 9.1 9.0 Magnesium 2.1 B-Natriuretic Peptide 133 H TSH 2.88 Imaging Radiologist's impression: Impressions Chest X-Ray 01/18/24 15:40 IMPRESSION: Chronic interstitial lung disease with questionable small left-sided pleural effusion. Electronically signed by: Emeka King MD 01/18/2024 03:57 PM [facility] Progress Note: A&P Assessment and plan (1) Atrial fibrillation with rapid ventricular response: Status: Acute Assessment and Plan: Atrial fibrillation rapid ventricular response converted back to sinus rhythm with rate control. Doing a lot better from cardiac perspective. Her symptoms are improving including shortness of breath. Question still for pulmonary thromboembolic disease given her recent hospitalization. Will consider CTA to evaluate for pulmonary embolism as this would change her anticoagulation dose. Continue Multaq to maintain rhythm. This is to avoid prolonged hospitalization and will pursue rhythm control approach aggressive. May not need it for long- term. However will probably need long-term oral anticoagulation therapy given her risk factors. Continue pulmonary optimization. Will sign of the case. Thank you for allowing me to partake in her care Time Spent With Patient Time: Total time managing care of this patient today ____ minutes. Progress Note: Quality Stroke Does the patient have a stroke diagnosis?: No Procedures Date of Service Date of Service: 01/19/24
[2024-01-19] MEDS: Loratadine 10 MG TABLET PO (10:06)
[2024-01-19] MEDS: Cholecalciferol (Vitamin D3) 25 MCG TABLET 125 MCG PO (10:06)
[2024-01-19] MEDS: Apixaban 5 MG TABLET PO ×2 (10:06→20:12)
[2024-01-19] MEDS: Dronedarone HCl 400 MG TABLET PO ×2 (10:08→20:12)
[2024-01-19] MEDS: cefTRIAXone sodium 1 GM VIAL IVPUSH (12:07)
--- NOTE | 2024-01-19 12:23 | HO.PM.IMPN ---
Subjective Subjective Date of Service: 01/19/24 Interval History: Follow-up for pneumonia Slowly improving, supplemental oxygen Feeling better today Review of Systems Review of Systems: Yes all other systems are reviewed and are negative Constitutional Constitutional: Denies chills and Denies fever(s) Cardiovascular Cardiovascular: Denies chest pain, Denies palpitations and Reports dyspnea Respiratory Respiratory: Reports cough and Reports dyspnea Gastrointestinal Gastrointestinal: Denies abdominal pain, Denies nausea and Denies vomiting Endocrine Endocrine: Denies palpitations Physical Exam Vital Signs: Vital Signs: Last Vital Signs Temp 97.8 F 01/19/24 12:16 Pulse 80 01/19/24 12:16 Resp 18 01/19/24 12:16 BP 105/56 L 01/19/24 12:16 Pulse Ox 96 01/19/24 12:16 O2 Del Method High Flow Nasal C annula 01/19/24 12:16 O2 Flow Rate 45 01/19/24 12:16 FiO2 40 01/19/24 12:16 Oxygen Flow Rate 15 01/16/24 09:16 BMI result Body Mass Index 31.2 Appearing in no acute distress lung sounds are clear to auscultation heart regular rate rhythm, clear S1, S2 positive bowel sounds, abdomen is soft, nontender neuro patient is alert x3, no focal deficits Objective Data Active Medications Acetaminophen (Acetaminophen 325 Mg Tablet) 650 mg PO Q6H PRN PRN Reason: Pain, Mild (Pain Scale 1-3), fever or headache Albuterol Sulfate (Albuterol Sulfate (0.083%) 2.5 Mg/3 Ml Vial.Neb) 2.5 mg INHALE Q4H PRN PRN Reason: Shortness of Breath/Wheezing Last Admin: 01/18/24 02:21 Dose: 2.5 mg Documented By: MATTHEW Amlodipine Besylate (Amlodipine Besylate 10 Mg Tablet) 10 mg PO BEDTIME [facility]; Protocol Last Admin: 01/17/24 20:02 Dose: 10 mg Documented By: LARY Apixaban (Apixaban 5 Mg Tablet) 5 mg PO BID [facility] Last Admin: 01/19/24 10:06 Dose: 5 mg Documented By: BRITTNEY Benzocaine (Throat Lozenge, Medicated Lozenge) 1 lozenge MUCOUS MEM Q2H PRN PRN Reason: Sore Throat Benzonatate (Benzonatate 100 Mg Capsule) 100 mg PO TID PRN PRN Reason: Cough Last Admin: 01/18/24 21:08 Dose: 100 mg Documented By: CORDELIA Calcium Carbonate (Calcium Carbonate 750 Mg Tab.Chew) 750 mg PO Q4H PRN PRN Reason: Heartburn Ceftriaxone Sodium (Ceftriaxone Sodium 1 Gm Vial) 1 gm IVPUSH Q24H [facility] Last Admin: 01/19/24 12:07 Dose: 1 gm Documented By: BRITTNEY Docusate Sodium (Docusate Sodium 100 Mg Capsule) 100 mg PO BEDTIME [facility] Last Admin: 01/18/24 21:03 Dose: Not Given Documented By: CORDELIA Non-Admin Reason: Patient Refused Dronedarone (Dronedarone Hcl 400 Mg Tablet) 400 mg PO BID [facility] Last Admin: 01/19/24 10:08 Dose: 400 mg Documented By: BRITTNEY Fluticasone/Vilanterol (Fluticasone/Vilanterol 200/25 Blst.W.Dev) 1 puff INHALE RDAILY [facility] Last Admin: 01/19/24 07:27 Dose: 1 puff Documented By: CHRISTIN Guaifenesin/Dextromethorphan (Guaifenesin Dm 200/20/10 Ml 10 Ml Syrup) 10 ml PO Q6H [facility] Last Admin: 01/19/24 10:06 Dose: 10 ml Documented By: BRITTNEY Doxycycline Hyclate 100 mg/ (Sodium Chloride) 250 mls @ 166.67 mls/hr IV Q12H [facility] Last Infusion: 01/19/24 06:46 Dose: Infused Documented By: CORDELIA Levalbuterol HCl (Levalbuterol Hcl 1.25 Mg/3 Ml Vial.Neb) 1.25 mg INHALE Q4H [facility] Last Admin: 01/19/24 11:28 Dose: 1.25 mg Documented By: CHRISTIN Loratadine (Loratadine 10 Mg Tablet) 10 mg PO DAILY [facility] Last Admin: 01/19/24 10:06 Dose: 10 mg Documented By: BRITTNEY Melatonin (Melatonin 3 Mg Tablet) 6 mg PO BEDTIME PRN PRN Reason: Insomnia Last Admin: 01/18/24 21:08 Dose: 6 mg Documented By: CORDELIA Montelukast Sodium (Montelukast Sodium 10 Mg Tablet) 10 mg PO BEDTIME [facility] Last Admin: 01/18/24 21:03 Dose: 10 mg Documented By: CORDLEIA Omeprazole (Omeprazole 20 Mg Capsule.) 20 mg PO DAILY@0630 [facility] Last Admin: 01/19/24 05:11 Dose: 20 mg Documented By: CORDELIA Polyethylene Glycol (Polyethylene Glycol 3350 17 Gm Powd.Pack) 17 gm PO DAILY PRN PRN Reason: Constipation Sodium Chloride (0.9 % Sodium Chloride Flush 3 Ml Syringe) 3 ml IVFLUSH QSHIFT [facility] Last Admin: 01/19/24 10:09 Dose: 3 ml Documented By: BRITTNEY Vitamin D (Cholecalciferol (Vitamin D3) 25 Mcg Tablet) 125 mcg PO DAILY [facility] Last Admin: 01/19/24 10:06 Dose: 125 mcg Documented By: BRITTNEY Labs 01/19/24 06:58 01/19/24 06:58 Labs: Laboratory Results - last 24 hr 01/19/24 06:58 MCV 88.7 MCH 29.1 MCHC 32.8 RDW 13.3 Plt Count 349 MPV 9.2 L Absolute Nucleated RBC 0.000 Nucleated RBC % (auto) 0.0 Anion Gap 16 Estim Creat Clear Calc 59.3 Estimated GFR > 60 Random Glucose 99 Calcium 9.0 B-Natriuretic Peptide 133 H Microbiology Microbiology Results: Microbiology 01/16/24 09:26 Blood Culture - Preliminary Blood - Venous No growth after 48 hours. 01/16/24 11:10 Blood Culture - Preliminary Blood - Venous No growth after 48 hours. Assessment and Plan (1) Pneumonia: Status: Acute Plan 73-year-old female with a past medical history significant for moderate persistent asthma, hypertension, hyperlipidemia, hyperparathyroidism, and GERD, and recent admission for rhino/enterovirus URI who presented to the ED due to cough, shortness of breath and wheezing to have acute respiratory high-flow supplemental oxygen CAP recently +for entero/rhinovirus No sepsis, tachycardia secondary to respiratory treatments, lactic acid also secondary to respiratory treatments, leukocytosis likely secondary to recent steroid use white count trending down Flu, RSV, COVID negative Continue ceftriaxone, azithromycin, started 01/15 high-flow, wean as tolerated Blood cultures negative to date Hypokalemia resolved with replacement HTN continue amlodipine GERD continue omeprazole Full code VTE prophylaxis with Lovenox Requires ongoing inpatient stay for management of pneumonia requiring supplemental oxygen and IV antibiotics Quality Stroke Does the patient have a stroke diagnosis?: No VTE Prior VTE?: No VTE Risk Level:: Medical - moderate - high VTE Device Contraindication: Treatment Not Indicated VTE Drug Contraindication: N/A - Med Ordered
[2024-01-19] MEDS: iohexoL 350 MG/ML 100 ML INFUS..BTL IV (12:44)
[2024-01-19] MEDS: Doxycycline Hyclate 100 MG in 0.9 % Sodium Chloride 250 ML 166.7 MG IV (18:21)
[2024-01-19] MEDS: Docusate Sodium 100 MG CAPSULE PO (20:12)
[2024-01-19] MEDS: Montelukast Sodium 10 MG TABLET PO (20:12)
[2024-01-19] MEDS: Melatonin 3 MG TABLET 6 MG PO (21:30)
[2024-01-20] VITALS (13 sets, daily range): BP systolic 99–121; BP diastolic 51–60; PULSE 71–87; RESP 17–18; TEMP 36.2–37; O2SAT 92–97
[2024-01-20] MEDS: guaiFENesin DM 200/20/10 ML 10 ML SYRUP PO ×3 (01:17→18:18)
[2024-01-20] MEDS: levalbuterol HCL 1.25 MG/3 ML VIAL.NEB INHALE ×6 (03:22→23:08)
[2024-01-20] MEDS: Omeprazole 20 MG CAPSULE.DR PO (05:42)
[2024-01-20] MEDS: Doxycycline Hyclate 100 MG in 0.9 % Sodium Chloride 250 ML 166.7 MG IV ×2 (05:48→18:19)
[2024-01-20] MEDS: Fluticasone/Vilanterol 200/25 BLST.W.DEV 1 PUFF INHALE (07:30)
[2024-01-20] MEDS: Cholecalciferol (Vitamin D3) 25 MCG TABLET 125 MCG PO (09:01)
[2024-01-20] MEDS: Loratadine 10 MG TABLET PO (09:02)
[2024-01-20] MEDS: Apixaban 5 MG TABLET PO ×2 (09:02→20:07)
[2024-01-20] MEDS: Dronedarone HCl 400 MG TABLET PO ×2 (09:02→20:07)
[2024-01-20] MEDS: Acetaminophen 325 MG TABLET 650 MG PO (09:03)
[2024-01-20] MEDS: 0.9 % Sodium Chloride Flush 3 ML SYRINGE IVFLUSH ×3 (09:03→18:18)
--- NOTE | 2024-01-20 09:40 | P.PNIM_ITS ---
Subjective Subjective Date of Service: 01/20/24 Interval History: Follow-up for pneumonia Slowly improving, supplemental oxygen Feeling better today Review of Systems Review of Systems: Yes all other systems are reviewed and are negative Constitutional Constitutional: Denies chills and Denies fever(s) Cardiovascular Cardiovascular: Denies chest pain, Denies palpitations and Reports dyspnea Respiratory Respiratory: Reports cough and Reports dyspnea Gastrointestinal Gastrointestinal: Denies abdominal pain, Denies nausea and Denies vomiting Endocrine Endocrine: Denies palpitations Physical Exam 2 Vital Signs: Vital Signs: Last Vital Signs Temp 97.2 F 01/20/24 07:10 Pulse 79 01/20/24 07:30 Resp 18 01/20/24 07:34 BP 113/60 01/20/24 07:10 Pulse Ox 95 01/20/24 07:10 O2 Del Method High Flow Nasal C annula 01/20/24 07:10 O2 Flow Rate 45 01/20/24 07:10 FiO2 43.1 01/20/24 07:10 Oxygen Flow Rate 15 01/16/24 09:16 BMI result Body Mass Index 31.2 Appearing in no acute distress lung sounds are clear to auscultation heart regular rate rhythm, clear S1, S2 positive bowel sounds, abdomen is soft, nontender neuro patient is alert x3, no focal deficits Objective Data Active Medications Acetaminophen (Acetaminophen 325 Mg Tablet) 650 mg PO Q6H PRN PRN Reason: Pain, Mild (Pain Scale 1-3), fever or headache Last Admin: 01/20/24 09:03 Dose: 650 mg Documented By: BRITTNEY Albuterol Sulfate (Albuterol Sulfate (0.083%) 2.5 Mg/3 Ml Vial.Neb) 2.5 mg INHALE Q4H PRN PRN Reason: Shortness of Breath/Wheezing Last Admin: 01/18/24 02:21 Dose: 2.5 mg Documented By: MATTHEW Amlodipine Besylate (Amlodipine Besylate 10 Mg Tablet) 10 mg PO BEDTIME [facility]; Protocol Last Admin: 01/17/24 20:02 Dose: 10 mg Documented By: LARY Apixaban (Apixaban 5 Mg Tablet) 5 mg PO BID [facility] Last Admin: 01/20/24 09:02 Dose: 5 mg Documented By: BRITTNEY Benzocaine (Throat Lozenge, Medicated Lozenge) 1 lozenge MUCOUS MEM Q2H PRN PRN Reason: Sore Throat Benzonatate (Benzonatate 100 Mg Capsule) 100 mg PO TID PRN PRN Reason: Cough Last Admin: 01/18/24 21:08 Dose: 100 mg Documented By: CORDELIA Calcium Carbonate (Calcium Carbonate 750 Mg Tab.Chew) 750 mg PO Q4H PRN PRN Reason: Heartburn Ceftriaxone Sodium (Ceftriaxone Sodium 1 Gm Vial) 1 gm IVPUSH Q24H [facility] Last Admin: 01/19/24 12:07 Dose: 1 gm Documented By: BRITTNEY Docusate Sodium (Docusate Sodium 100 Mg Capsule) 100 mg PO BEDTIME [facility] Last Admin: 01/19/24 20:12 Dose: 100 mg Documented By: ANA Dronedarone (Dronedarone Hcl 400 Mg Tablet) 400 mg PO BID [facility] Last Admin: 01/20/24 09:02 Dose: 400 mg Documented By: BRITTNEY Fluticasone/Vilanterol (Fluticasone/Vilanterol 200/25 Blst.W.Dev) 1 puff INHALE RDAILY [facility] Last Admin: 01/20/24 07:30 Dose: 1 puff Documented By: MICHELLE Guaifenesin/Dextromethorphan (Guaifenesin Dm 200/20/10 Ml 10 Ml Syrup) 10 ml PO Q6H [facility] Last Admin: 01/20/24 09:01 Dose: 10 ml Documented By: BRITTNEY Doxycycline Hyclate 100 mg/ (Sodium Chloride) 250 mls @ 166.67 mls/hr IV Q12H [facility] Last Infusion: 01/20/24 07:39 Dose: Infused Documented By: BRITTNEY Levalbuterol HCl (Levalbuterol Hcl 1.25 Mg/3 Ml Vial.Neb) 1.25 mg INHALE Q4H [facility] Last Admin: 01/20/24 07:30 Dose: 1.25 mg Documented By: MICHELLE Loratadine (Loratadine 10 Mg Tablet) 10 mg PO DAILY [facility] Last Admin: 01/20/24 09:02 Dose: 10 mg Documented By: BRITTNEY Melatonin (Melatonin 3 Mg Tablet) 6 mg PO BEDTIME PRN PRN Reason: Insomnia Last Admin: 01/19/24 21:30 Dose: 6 mg Documented By: ANA Montelukast Sodium (Montelukast Sodium 10 Mg Tablet) 10 mg PO BEDTIME [facility] Last Admin: 01/19/24 20:12 Dose: 10 mg Documented By: ANA Omeprazole (Omeprazole 20 Mg Capsule.) 20 mg PO DAILY@0630 [facility] Last Admin: 01/20/24 05:42 Dose: 20 mg Documented By: ANA Polyethylene Glycol (Polyethylene Glycol 3350 17 Gm Powd.Pack) 17 gm PO DAILY PRN PRN Reason: Constipation Sodium Chloride (0.9 % Sodium Chloride Flush 3 Ml Syringe) 3 ml IVFLUSH QSHIFT [facility] Last Admin: 01/20/24 09:03 Dose: 3 ml Documented By: BRITTNEY Vitamin D (Cholecalciferol (Vitamin D3) 25 Mcg Tablet) 125 mcg PO DAILY [facility] Last Admin: 01/20/24 09:01 Dose: 125 mcg Documented By: BRITTNEY Labs 01/19/24 06:58 01/19/24 06:58 Assessment and Plan (1) Pneumonia: Status: Acute Plan 73-year-old female with a past medical history significant for moderate persistent asthma, hypertension, hyperlipidemia, hyperparathyroidism, and GERD, and recent admission for rhino/enterovirus URI who presented to the ED due to cough, shortness of breath and wheezing to have acute respiratory high-flow supplemental oxygen CAP recently +for entero/rhinovirus No sepsis, tachycardia secondary to respiratory treatments, lactic acid also secondary to respiratory treatments, leukocytosis likely secondary to recent steroid use white count trending down Flu, RSV, COVID negative Continue ceftriaxone, azithromycin, started 01/15 high-flow, wean as tolerated Blood cultures negative to date CTA neg for PE pulm consultation> no need to treat previously sputum cx of aspergillus, continue current therapy Hypokalemia resolved with replacement HTN continue amlodipine GERD continue omeprazole Full code VTE prophylaxis with Lovenox Atteding Dr. Pierre Requires ongoing inpatient stay for management of pneumonia requiring supplemental oxygen and IV antibiotics Quality Stroke Does the patient have a stroke diagnosis?: No VTE Prior VTE?: No VTE Risk Level:: Medical - moderate - high VTE Device Contraindication: Treatment Not Indicated VTE Drug Contraindication: N/A - Med Ordered
--- NOTE | 2024-01-20 12:27 | PM.CNPUL ---
History of Present Illness History of Present Illness Consult date: 01/20/24 Chief complaint: Dyspnea and productive cough Narrative: 73-year-old lady, nonsmoker, with underlying history of asthma and environmental allergies followed by Dr. Stanley in [place], readmitted on 01/16/2024 after recent admission for rhinovirus bronchitis with worsening dyspnea and cough. She was treated with empiric antibiotics. Her CT angio chest demonstrated no evidence of pulmonary emboli fungus ball. Of note, she does have respiratory culture from some of 2023 positive for Aspergillus. Patient states that she has improved significantly from her admission and feels at baseline. Review of Systems Constitutional: Constitutional: Denies daytime sleepiness, Denies excessive sweating, Denies fatigue, Denies fever(s), Denies lethargy, Denies malaise, Denies night sweats, Denies snoring and Denies weight loss Eyes: Eyes: Denies blurry vision and Denies itchy eyes ENT: Denies nasal congestion, Denies post nasal drip, Denies sinus pain, Denies sinus pressure and Denies other ( Thrush) Cardiovascular: Cardiovascular: Denies chest pain, Denies pedal edema, Denies dyspnea, Denies orthopnea and Denies paroxysmal nocturnal dyspnea Respiratory: Respiratory: Denies cough, Denies hemoptysis, Denies excessive phlegm production, Denies dyspnea, Denies snoring and Denies wheezing Gastrointestinal: Gastrointestinal: Denies abdominal pain and Denies heartburn Musculoskeletal: Musculoskeletal: Denies myalgias, Denies arthralgias and Denies joint swelling Integumentary/Breasts: Skin/Breast: Denies rash Neurologic: Denies memory loss and Denies seizure-like activity Psychiatric: Psychiatric: Denies abnormal sleep pattern, Denies anxiety and Denies memory loss Endocrine: Endocrine: Denies excessive sweating, Denies fatigue and Denies heat intolerance Hematologic/Lymphatic: Hematologic/Lymphatic: Denies easy bruising Allergic/Immunologic: Allergic/Immunologic: Denies itchy eyes, Denies seasonal rhinorrhea and Denies wheezing PMFSH Past Medical History Medical History (Updated 01/20/24 @ 12:34 by Kolby Chand MD) Hyperparathyroidism Fatty liver Pneumonia Osteopenia Acid reflux disease Basal cell carcinoma Asthma HLD (hyperlipidemia) HTN (hypertension) Surgical History Surgical History H/O parathyroidectomy History of removal of both ovaries H/O section Hx of tonsillectomy H/O colonoscopy Social History Social History Household Members: Spouse Housing: Condominium Do you presently have visiting nurse or other home services: No Alcohol intake: never Patient Tobacco Use Status: Never used Tobacco Second Hand Smoke Exposure: No Advance Directives Date on File: 01/10/24 service: No Meds Allergies Allergy/AdvReac Type Severity Reaction Status Date / Time lisinopril Allergy Severe Difficulty Verified 01/16/24 09:17 Breathing codeine Allergy Intermediate Unconscious Verified 01/16/24 09:17 Active Medications: Current Medications Acetaminophen (Acetaminophen 325 Mg Tablet) 650 mg PO Q6H PRN PRN Reason: Pain, Mild (Pain Scale 1-3), fever or headache Last Admin: 01/20/24 09:03 Dose: 650 mg Albuterol Sulfate (Albuterol Sulfate (0.083%) 2.5 Mg/3 Ml Vial.Neb) 2.5 mg INHALE Q4H PRN PRN Reason: Shortness of Breath/Wheezing Last Admin: 01/18/24 02:21 Dose: 2.5 mg Amlodipine Besylate (Amlodipine Besylate 10 Mg Tablet) 10 mg PO BEDTIME [facility]; Protocol Last Admin: 01/17/24 20:02 Dose: 10 mg Apixaban (Apixaban 5 Mg Tablet) 5 mg PO BID [facility] Last Admin: 01/20/24 09:02 Dose: 5 mg Benzocaine (Throat Lozenge, Medicated Lozenge) 1 lozenge MUCOUS MEM Q2H PRN PRN Reason: Sore Throat Benzonatate (Benzonatate 100 Mg Capsule) 100 mg PO TID PRN PRN Reason: Cough Last Admin: 01/18/24 21:08 Dose: 100 mg Calcium Carbonate (Calcium Carbonate 750 Mg Tab.Chew) 750 mg PO Q4H PRN PRN Reason: Heartburn Ceftriaxone Sodium (Ceftriaxone Sodium 1 Gm Vial) 1 gm IVPUSH Q24H [facility] Last Admin: 01/19/24 12:07 Dose: 1 gm Docusate Sodium (Docusate Sodium 100 Mg Capsule) 100 mg PO BEDTIME [facility] Last Admin: 01/19/24 20:12 Dose: 100 mg Dronedarone (Dronedarone Hcl 400 Mg Tablet) 400 mg PO BID [facility] Last Admin: 01/20/24 09:02 Dose: 400 mg Fluticasone/Vilanterol (Fluticasone/Vilanterol 200/25 Blst.W.Dev) 1 puff INHALE RDAILY [facility] Last Admin: 01/20/24 07:30 Dose: 1 puff Guaifenesin/Dextromethorphan (Guaifenesin Dm 200/20/10 Ml 10 Ml Syrup) 10 ml PO Q6H [facility] Last Admin: 01/20/24 09:01 Dose: 10 ml Doxycycline Hyclate 100 mg/ (Sodium Chloride) 250 mls @ 166.67 mls/hr IV Q12H [facility] Last Infusion: 01/20/24 07:39 Dose: Infused Levalbuterol HCl (Levalbuterol Hcl 1.25 Mg/3 Ml Vial.Neb) 1.25 mg INHALE Q4H [facility] Last Admin: 01/20/24 11:07 Dose: 1.25 mg Loratadine (Loratadine 10 Mg Tablet) 10 mg PO DAILY [facility] Last Admin: 01/20/24 09:02 Dose: 10 mg Melatonin (Melatonin 3 Mg Tablet) 6 mg PO BEDTIME PRN PRN Reason: Insomnia Last Admin: 01/19/24 21:30 Dose: 6 mg Montelukast Sodium (Montelukast Sodium 10 Mg Tablet) 10 mg PO BEDTIME [facility] Last Admin: 01/19/24 20:12 Dose: 10 mg Omeprazole (Omeprazole 20 Mg Capsule.Dr) 20 mg PO DAILY@0630 [facility] Last Admin: 01/20/24 05:42 Dose: 20 mg Polyethylene Glycol (Polyethylene Glycol 3350 17 Gm Powd.Pack) 17 gm PO DAILY PRN PRN Reason: Constipation Sodium Chloride (0.9 % Sodium Chloride Flush 3 Ml Syringe) 3 ml IVFLUSH QSHIFT [facility] Last Admin: 01/20/24 09:03 Dose: 3 ml Vitamin D (Cholecalciferol (Vitamin D3) 25 Mcg Tablet) 125 mcg PO DAILY [facility] Last Admin: 01/20/24 09:01 Dose: 125 mcg Home Medications ?Medication ?Instructions ?Recorded ?Confirmed ?Last Taken ?Type amlodipine 10 mg tablet 10 mg PO BEDTIME 10/12/22 01/16/24 01/15/24 History montelukast 10 mg tablet 10 mg PO BEDTIME 10/12/22 01/16/24 01/15/24 History omega 5-gxh-rjp-fish oil 1,000 mg 1 cap PO DAILY 10/12/22 01/16/24 01/15/24 History (120 mg-180 mg) capsule (Fish Oil) omeprazole 20 mg capsule,delayed 20 mg PO DAILY@0630 10/12/22 01/16/24 01/15/24 History release albuterol sulfate 90 mcg/actuation 2 puff inhalation Q4H PRN Wheezing 10/01/23 01/16/24 01/16/24 History aerosol inhaler budesonide-formoterol HFA 160 2 puff inhalation BID 10/01/23 01/16/24 01/16/24 History mcg-4.5 mcg/actuation aerosol inhaler (Symbicort) cholecalciferol (vitamin D3) 125 125 mcg PO DAILY 10/01/23 01/16/24 01/15/24 History mcg (5,000 unit) tablet (Vitamin D3) albuterol sulfate 2.5 mg/3 mL 2.5 mg inhalation Q6H PRN 01/10/24 01/16/24 01/15/24 History (0.083 %) solution for nebulization Shortness Of Breath Or Wheezing cetirizine 10 mg tablet (Zyrtec) 10 mg PO DAILY 01/10/24 01/16/24 01/15/24 History cyclosporine 0.05 % eye drops in a 1 drp ophthalmic (eye) Q12H PRN 01/10/24 01/16/24 01/15/24 History dropperette Dry Eye(S) Physical Exam Vital Signs: Vital Signs: Last Vital Signs Temp 97.2 F 01/20/24 07:10 Pulse 87 01/20/24 11:07 Resp 18 01/20/24 11:09 BP 113/60 01/20/24 07:10 Pulse Ox 95 01/20/24 07:10 O2 Del Method High Flow Nasal C annula 01/20/24 07:10 O2 Flow Rate 45 01/20/24 07:10 FiO2 43.1 01/20/24 07:10 Oxygen Flow Rate 15 01/16/24 09:16 BMI result Body Mass Index 31.2 Const: General: no acute distress and alert Nutritional Appearance: not obese Orientation/consciousness: Other orientation findings ( oriented) HEENT: Head: Yes atraumatic Eyes: General: appearance normal, both eyes and all related structures Sclerae: sclerae normal EOM: EOMs intact bilaterally Neck: Neck: Yes supple Lymphatic: no lymphadenopathy noted Resp: Effort & Inspection: normal respiratory effort and no use of accessory muscles Auscultation: clear to auscultation bilaterally Cardio: Rate: regular rate Rhythm: regular rhythm Heart sounds: no gallops, no murmurs and no rubs Skin: General skin exam: other ( warm) Extrem: General: No clubbing, No cyanosis and Yes edema (Trace bilateral) Results Laboratory Findings 01/19/24 06:58 01/19/24 06:58 Abnormal lab findings: Abnormal Labs 01/16/24 01/16/24 01/16/24 09:27 10:21 11:10 WBC 20.5 H Hct Plt Count 467 H D MPV 9.1 L Immature Gran % (Auto) 3.4 H Neut % (Auto) Lymph % (Auto) Lymph # (Auto) 6.9 H Barbour # (Auto) 1.7 H Abs Immat Gran (auto) 0.69 H Absolute Neuts (auto) 10.8 H VBG pH 7.49 H Potassium 3.2 L Carbon Dioxide 21 L BUN 17 H Random Glucose Lactic Acid 2.2 H* Lactic Acid F/U @ 2Hr Lactic Acid F/U @ 4Hr B-Natriuretic Peptide 01/16/24 01/16/24 01/17/24 13:44 16:00 05:59 WBC 15.4 H Hct 36.4 L Plt Count MPV Immature Gran % (Auto) 2.2 H Neut % (Auto) 74.6 H Lymph % (Auto) 15.6 L Lymph # (Auto) Barbour # (Auto) Abs Immat Gran (auto) 0.34 H Absolute Neuts (auto) 11.5 H VBG pH Potassium Carbon Dioxide BUN Random Glucose 118 H Lactic Acid Lactic Acid F/U @ 2Hr 4.0 H* Lactic Acid F/U @ 4Hr 6.1 H* B-Natriuretic Peptide 01/18/24 01/19/24 11:17 06:58 WBC 14.5 H Hct Plt Count MPV 9.2 L Immature Gran % (Auto) Neut % (Auto) Lymph % (Auto) Lymph # (Auto) [place]bour # (Auto) Abs Immat Gran (auto) Absolute Neuts (auto) VBG pH Potassium 3.0 L Carbon Dioxide BUN Random Glucose 170 H Lactic Acid Lactic Acid F/U @ 2Hr Lactic Acid F/U @ 4Hr B-Natriuretic Peptide 133 H Microbiology: Microbiology 01/16/24 09:26 Blood - Venous Blood Culture - Preliminary No growth after 48 hours. 01/16/24 11:10 Blood - Venous Blood Culture - Preliminary No growth after 48 hours. Assessment and Plan (1) Asthma: Status: Acute (2) Bronchitis: Status: Acute (3) Acute respiratory failure with hypoxia: Status: Acute Plan Impression: 73-year-old lady with underlying asthma and environmental allergies readmitted with worsening dyspnea also noted to have AFib with RVR, treated with rate control and empiric antibiotics with significant improvement. CT angio chest with no evidence of pulmonary emboli of fungal balls. ABPA is unlikely, though not completely excluded. Recommendations: Consider obtain Aspergillus IgE and beta D glucan. Consider additional diuresis. Otherwise, agree with current regimen of empiric antibiotics and inhaled bronchodilators. Procedures Date of Service Date of Service: 01/20/24
[2024-01-20] MEDS: cefTRIAXone sodium 1 GM VIAL IVPUSH (12:44)
[2024-01-20] MEDS: Docusate Sodium 100 MG CAPSULE PO (20:07)
[2024-01-20] MEDS: Benzonatate 100 MG CAPSULE PO (20:07)
[2024-01-20] MEDS: Montelukast Sodium 10 MG TABLET PO (20:07)
[2024-01-20] MEDS: Melatonin 3 MG TABLET 6 MG PO (22:21)
[2024-01-21] VITALS (13 sets, daily range): BP systolic 116–140; BP diastolic 56–64; PULSE 80–96; RESP 18–20; TEMP 36.3–37.1; O2SAT 85–98
[2024-01-21] MEDS: guaiFENesin DM 200/20/10 ML 10 ML SYRUP PO ×3 (02:37→20:51)
[2024-01-21] MEDS: levalbuterol HCL 1.25 MG/3 ML VIAL.NEB INHALE ×5 (03:57→19:39)
[2024-01-21] MEDS: Omeprazole 20 MG CAPSULE.DR PO (05:51)
[2024-01-21] MEDS: Doxycycline Hyclate 100 MG in 0.9 % Sodium Chloride 250 ML 166.7 MG IV ×2 (05:51→17:24)
[2024-01-21] MEDS: Fluticasone/Vilanterol 200/25 BLST.W.DEV 1 PUFF INHALE (07:18)
--- NOTE | 2024-01-21 08:18 | HO.PM.IMPN ---
Subjective Subjective Date of Service: 01/21/24 Interval History: Follow-up for pneumonia Slowly improving, supplemental oxygen Feeling better today Review of Systems Review of Systems: Yes all other systems are reviewed and are negative Constitutional Constitutional: Denies chills and Denies fever(s) Cardiovascular Cardiovascular: Denies chest pain, Denies palpitations and Reports dyspnea Respiratory Respiratory: Reports cough and Reports dyspnea Gastrointestinal Gastrointestinal: Denies abdominal pain, Denies nausea and Denies vomiting Endocrine Endocrine: Denies palpitations Physical Exam Vital Signs: Vital Signs: Last Vital Signs Temp 98.8 F 01/21/24 07:54 Pulse 84 01/21/24 07:54 Resp 20 01/21/24 07:54 BP 140/59 H 01/21/24 07:54 Pulse Ox 93 01/21/24 07:54 O2 Del Method Nasal Cannula 01/21/24 07:54 O2 Flow Rate 3 01/21/24 07:54 FiO2 34.1 01/20/24 15:33 Oxygen Flow Rate 15 01/16/24 09:16 BMI result Body Mass Index 31.2 Appearing in no acute distress lung sounds are clear to auscultation heart regular rate rhythm, clear S1, S2 positive bowel sounds, abdomen is soft, nontender neuro patient is alert x3, no focal deficits Objective Data Active Medications Acetaminophen (Acetaminophen 325 Mg Tablet) 650 mg PO Q6H PRN PRN Reason: Pain, Mild (Pain Scale 1-3), fever or headache Last Admin: 01/20/24 09:03 Dose: 650 mg Documented By: BRITTNEY Albuterol Sulfate (Albuterol Sulfate (0.083%) 2.5 Mg/3 Ml Vial.Neb) 2.5 mg INHALE Q4H PRN PRN Reason: Shortness of Breath/Wheezing Last Admin: 01/18/24 02:21 Dose: 2.5 mg Documented By: MATTHEW Amlodipine Besylate (Amlodipine Besylate 10 Mg Tablet) 10 mg PO BEDTIME [facility]; Protocol Last Admin: 01/17/24 20:02 Dose: 10 mg Documented By: LARY Apixaban (Apixaban 5 Mg Tablet) 5 mg PO BID [facility] Last Admin: 01/20/24 20:07 Dose: 5 mg Documented By: ANA Benzocaine (Throat Lozenge, Medicated Lozenge) 1 lozenge MUCOUS MEM Q2H PRN PRN Reason: Sore Throat Benzonatate (Benzonatate 100 Mg Capsule) 100 mg PO TID PRN PRN Reason: Cough Last Admin: 01/20/24 20:07 Dose: 100 mg Documented By: ANA Calcium Carbonate (Calcium Carbonate 750 Mg Tab.Chew) 750 mg PO Q4H PRN PRN Reason: Heartburn Ceftriaxone Sodium (Ceftriaxone Sodium 1 Gm Vial) 1 gm IVPUSH Q24H [facility] Last Admin: 01/20/24 12:44 Dose: 1 gm Documented By: BRITTNEY Docusate Sodium (Docusate Sodium 100 Mg Capsule) 100 mg PO BEDTIME [facility] Last Admin: 01/20/24 20:07 Dose: 100 mg Documented By: ANA Dronedarone (Dronedarone Hcl 400 Mg Tablet) 400 mg PO BID [facility] Last Admin: 01/20/24 20:07 Dose: 400 mg Documented By: ANA Fluticasone/Vilanterol (Fluticasone/Vilanterol 200/25 Blst.W.Dev) 1 puff INHALE RDAILY [facility] Last Admin: 01/21/24 07:18 Dose: 1 puff Documented By: CHRISTIN Guaifenesin/Dextromethorphan (Guaifenesin Dm 200/20/10 Ml 10 Ml Syrup) 10 ml PO Q6H [facility] Last Admin: 01/21/24 02:37 Dose: 10 ml Documented By: ANA Doxycycline Hyclate 100 mg/ (Sodium Chloride) 250 mls @ 166.67 mls/hr IV Q12H [facility] Last Admin: 01/21/24 05:51 Dose: 166.7 mls/hr Documented By: ANA Levalbuterol HCl (Levalbuterol Hcl 1.25 Mg/3 Ml Vial.Neb) 1.25 mg INHALE Q4H [facility] Last Admin: 01/21/24 07:17 Dose: 1.25 mg Documented By: CHRISTIN Loratadine (Loratadine 10 Mg Tablet) 10 mg PO DAILY [facility] Last Admin: 01/20/24 09:02 Dose: 10 mg Documented By: BRITTNEY Melatonin (Melatonin 3 Mg Tablet) 6 mg PO BEDTIME PRN PRN Reason: Insomnia Last Admin: 01/20/24 22:21 Dose: 6 mg Documented By: ANA Montelukast Sodium (Montelukast Sodium 10 Mg Tablet) 10 mg PO BEDTIME [facility] Last Admin: 01/20/24 20:07 Dose: 10 mg Documented By: ANA Omeprazole (Omeprazole 20 Mg Capsule.) 20 mg PO DAILY@0630 [facility] Last Admin: 01/21/24 05:51 Dose: 20 mg Documented By: ANA Polyethylene Glycol (Polyethylene Glycol 3350 17 Gm Powd.Pack) 17 gm PO DAILY PRN PRN Reason: Constipation Sodium Chloride (0.9 % Sodium Chloride Flush 3 Ml Syringe) 3 ml IVFLUSH QSHIFT [facility] Last Admin: 01/21/24 00:00 Dose: 3 ml Documented By: ANA Vitamin D (Cholecalciferol (Vitamin D3) 25 Mcg Tablet) 125 mcg PO DAILY [facility] Last Admin: 01/20/24 09:01 Dose: 125 mcg Documented By: [facility] 01/19/24 06:58 01/19/24 06:58 Assessment and Plan (1) Pneumonia: Status: Acute Plan 73-year-old female with a past medical history significant for moderate persistent asthma, hypertension, hyperlipidemia, hyperparathyroidism, and GERD, and recent admission for rhino/enterovirus URI who presented to the ED due to cough, shortness of breath and wheezing to have acute respiratory high-flow supplemental oxygen CAP recently +for entero/rhinovirus No sepsis, tachycardia secondary to respiratory treatments, lactic acid also secondary to respiratory treatments, leukocytosis likely secondary to recent steroid use Flu, RSV, COVID negative Continue ceftriaxone, azithromycin, started 01/15 s/p high-flow now on 3 liters nc Blood cultures negative to date CTA neg for PE pulm consultation> no need to treat previously sputum cx of aspergillus, continue current therapy PT consultation Hypokalemia resolved with replacement HTN continue amlodipine GERD continue omeprazole Full code VTE prophylaxis with Lovenox Atteding Dr. Quintana Requires ongoing inpatient stay for management of pneumonia requiring supplemental oxygen and IV antibiotics Quality Stroke Does the patient have a stroke diagnosis?: No VTE Prior VTE?: No VTE Risk Level:: Medical - moderate - high VTE Device Contraindication: Treatment Not Indicated VTE Drug Contraindication: N/A - Med Ordered
[2024-01-21] MEDS: Dronedarone HCl 400 MG TABLET PO ×2 (08:31→20:51)
[2024-01-21] MEDS: Apixaban 5 MG TABLET PO ×2 (08:31→20:51)
[2024-01-21] MEDS: Cholecalciferol (Vitamin D3) 25 MCG TABLET 125 MCG PO (08:31)
[2024-01-21] MEDS: Loratadine 10 MG TABLET PO (08:32)
[2024-01-21] MEDS: 0.9 % Sodium Chloride Flush 3 ML SYRINGE IVFLUSH ×3 (08:34→20:58)
[2024-01-21] MEDS: cefTRIAXone sodium 1 GM VIAL IVPUSH (12:29)
--- NOTE | 2024-01-21 13:42 | MHC.CM.PN ---
EMR reviewed and per MD rounds, pt is not medically cleared for discharge due to management of pneumonia, anticipating pt will discharge home with new services tomorrow.
--- NOTE | 2024-01-21 16:34 | W.PM.IDCN ---
History of Present Illness Data of Consult Service Date: 01/21/24 Requesting physician: Wanda Macdonald Primary Care Provider: GAURI Leonard HPI Reason for consult: lung opacities bases, Aspergillosis She presents with weakness, shortness of breath. She has no PE but impaction LLL airways. She has prior aspergillosis lung collected in September. She has occasional hemoptysis. Review of Systems Review of Systems: Yes all other systems are reviewed and are negative Respiratory: Respiratory: Reports cough PMFSH Past Medical History Medical History Hyperparathyroidism Fatty liver Pneumonia Osteopenia Acid reflux disease Basal cell carcinoma Asthma HLD (hyperlipidemia) HTN (hypertension) Family History Family history: reviewed and not pertinent Surgical History Surgical History H/O parathyroidectomy History of removal of both ovaries H/O section Hx of tonsillectomy H/O colonoscopy Social History Social History Household Members: Spouse Housing: Condominium Do you presently have visiting nurse or other home services: No Alcohol intake: never Patient Tobacco Use Status: Never used Tobacco Second Hand Smoke Exposure: No Advance Directives Date on File: 01/10/24 service: No Meds Allergies Allergy/AdvReac Type Severity Reaction Status Date / Time lisinopril Allergy Severe Difficulty Verified 01/16/24 09:17 Breathing codeine Allergy Intermediate Unconscious Verified 01/16/24 09:17 Active Medications: Current Medications Acetaminophen (Acetaminophen 325 Mg Tablet) 650 mg PO Q6H PRN PRN Reason: Pain, Mild (Pain Scale 1-3), fever or headache Last Admin: 01/20/24 09:03 Dose: 650 mg Albuterol Sulfate (Albuterol Sulfate (0.083%) 2.5 Mg/3 Ml Vial.Neb) 2.5 mg INHALE Q4H PRN PRN Reason: Shortness of Breath/Wheezing Last Admin: 01/18/24 02:21 Dose: 2.5 mg Amlodipine Besylate (Amlodipine Besylate 10 Mg Tablet) 10 mg PO BEDTIME IONA; Protocol Last Admin: 01/17/24 20:02 Dose: 10 mg Apixaban (Apixaban 5 Mg Tablet) 5 mg PO BID [facility] Last Admin: 01/21/24 08:31 Dose: 5 mg Benzocaine (Throat Lozenge, Medicated Lozenge) 1 lozenge MUCOUS MEM Q2H PRN PRN Reason: Sore Throat Benzonatate (Benzonatate 100 Mg Capsule) 100 mg PO TID PRN PRN Reason: Cough Last Admin: 01/20/24 20:07 Dose: 100 mg Calcium Carbonate (Calcium Carbonate 750 Mg Tab.Chew) 750 mg PO Q4H PRN PRN Reason: Heartburn Ceftriaxone Sodium (Ceftriaxone Sodium 1 Gm Vial) 1 gm IVPUSH Q24H [facility] Last Admin: 01/21/24 12:29 Dose: 1 gm Docusate Sodium (Docusate Sodium 100 Mg Capsule) 100 mg PO BEDTIME [facility] Last Admin: 01/20/24 20:07 Dose: 100 mg Dronedarone (Dronedarone Hcl 400 Mg Tablet) 400 mg PO BID [facility] Last Admin: 01/21/24 08:31 Dose: 400 mg Fluticasone/Vilanterol (Fluticasone/Vilanterol 200/25 Blst.W.Dev) 1 puff INHALE RDAILY [facility] Last Admin: 01/21/24 07:18 Dose: 1 puff Guaifenesin/Dextromethorphan (Guaifenesin Dm 200/20/10 Ml 10 Ml Syrup) 10 ml PO Q6H [facility] Last Admin: 01/21/24 15:26 Dose: Not Given Doxycycline Hyclate 100 mg/ (Sodium Chloride) 250 mls @ 166.67 mls/hr IV Q12H [facility] Last Infusion: 01/21/24 07:30 Dose: Infused Levalbuterol HCl (Levalbuterol Hcl 1.25 Mg/3 Ml Vial.Neb) 1.25 mg INHALE Q4H [facility] Last Admin: 01/21/24 15:18 Dose: 1.25 mg Loratadine (Loratadine 10 Mg Tablet) 10 mg PO DAILY [facility] Last Admin: 01/21/24 08:32 Dose: 10 mg Melatonin (Melatonin 3 Mg Tablet) 6 mg PO BEDTIME PRN PRN Reason: Insomnia Last Admin: 01/20/24 22:21 Dose: 6 mg Montelukast Sodium (Montelukast Sodium 10 Mg Tablet) 10 mg PO BEDTIME [facility] Last Admin: 01/20/24 20:07 Dose: 10 mg Omeprazole (Omeprazole 20 Mg Capsule.Dr) 20 mg PO DAILY@0630 [facility] Last Admin: 01/21/24 05:51 Dose: 20 mg Polyethylene Glycol (Polyethylene Glycol 3350 17 Gm Powd.Pack) 17 gm PO DAILY PRN PRN Reason: Constipation Sodium Chloride (0.9 % Sodium Chloride Flush 3 Ml Syringe) 3 ml IVFLUSH QSHIFT [facility] Last Admin: 01/21/24 08:34 Dose: 3 ml Vitamin D (Cholecalciferol (Vitamin D3) 25 Mcg Tablet) 125 mcg PO DAILY [facility] Last Admin: 01/21/24 08:31 Dose: 125 mcg Home Medications ?Medication ?Instructions ?Recorded ?Confirmed ?Last Taken ?Type amlodipine 10 mg tablet 10 mg PO BEDTIME 10/12/22 01/16/24 01/15/24 History montelukast 10 mg tablet 10 mg PO BEDTIME 10/12/22 01/16/24 01/15/24 History omega 7-yzr-wja-fish oil 1,000 mg 1 cap PO DAILY 10/12/22 01/16/24 01/15/24 History (120 mg-180 mg) capsule (Fish Oil) omeprazole 20 mg capsule,delayed 20 mg PO DAILY@0630 10/12/22 01/16/24 01/15/24 History release albuterol sulfate 90 mcg/actuation 2 puff inhalation Q4H PRN Wheezing 10/01/23 01/16/24 01/16/24 History aerosol inhaler budesonide-formoterol HFA 160 2 puff inhalation BID 10/01/23 01/16/24 01/16/24 History mcg-4.5 mcg/actuation aerosol inhaler (Symbicort) cholecalciferol (vitamin D3) 125 125 mcg PO DAILY 10/01/23 01/16/24 01/15/24 History mcg (5,000 unit) tablet (Vitamin D3) albuterol sulfate 2.5 mg/3 mL 2.5 mg inhalation Q6H PRN 01/10/24 01/16/24 01/15/24 History (0.083 %) solution for nebulization Shortness Of Breath Or Wheezing cetirizine 10 mg tablet (Zyrtec) 10 mg PO DAILY 01/10/24 01/16/24 01/15/24 History cyclosporine 0.05 % eye drops in a 1 drp ophthalmic (eye) Q12H PRN 01/10/24 01/16/24 01/15/24 History dropperette Dry Eye(S) Physical Exam Vital Signs: Vital Signs: Last Vital Signs Temp 98.1 F 01/21/24 15:35 Pulse 91 01/21/24 15:35 Resp 20 01/21/24 15:35 BP 119/56 L 01/21/24 15:35 Pulse Ox 97 01/21/24 15:35 O2 Del Method Nasal Cannula 01/21/24 15:35 O2 Flow Rate 3 01/21/24 15:35 FiO2 34.1 01/20/24 15:33 Oxygen Flow Rate 15 01/16/24 09:16 BMI result Body Mass Index 31.2 Const: General: cooperative HEENT: Head: Yes normal to inspection Face and sinus: Yes normal facial exam Mouth: Normal oral and palatal mucosa present Teeth and gingiva: dentition normal Eyes: General: appearance normal, both eyes and all related structures Pupils: Equal, round and reactive pupils present Resp: Other: decreased breath sounds bases Cardio: Rate: regular rate Rhythm: regular rhythm GI: Palpation (GI): Soft to palpation and nontender : General: Yes no CVA tenderness Back/Spine/Pelvis: Back: no CVA tenderness Skin: General skin exam: no rashes or lesions noted Neuro: General: moves all extremities Cranial nerves: Yes Equal, round and reactive pupils present Extrem: General: Yes normal to inspection Psych: Appearance: grossly normal Results Labs 01/19/24 06:58 01/19/24 06:58 Microbiology Microbiology Results: Microbiology 01/16/24 09:26 Blood - Venous Blood Culture - Final No growth after 5 days. 01/16/24 11:10 Blood - Venous Blood Culture - Final No growth after 5 days. Assessment and Plan (1) Acute respiratory failure with hypoxia: Status: Acute (2) Pneumonia: Status: Acute Plan This appears to be more likely CAP rather than invasive aspergillosis. 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 Await fungitell and IgE serologies No fungal treatment at this time.
[2024-01-21] MEDS: Docusate Sodium 100 MG CAPSULE PO (20:51)
[2024-01-21] MEDS: Montelukast Sodium 10 MG TABLET PO (20:51)
[2024-01-21] MEDS: Melatonin 3 MG TABLET 6 MG PO (20:56)
[2024-01-22] MEDS: guaiFENesin DM 200/20/10 ML 10 ML SYRUP PO ×2 (01:52→08:43)
[2024-01-22 03:23] VITALS: BP 111/53; PULSE 76; RESP 19; TEMP 36.6; O2SAT 90
[2024-01-22] MEDS: Omeprazole 20 MG CAPSULE.DR PO (05:58)
[2024-01-22] MEDS: Doxycycline Hyclate 100 MG in 0.9 % Sodium Chloride 250 ML 166.67 MG IV (06:28)
[2024-01-22 07:29] VITALS: O2SAT 92
[2024-01-22 07:33] VITALS: BP 127/80; PULSE 79; RESP 16; TEMP 36.3; O2SAT 93
[2024-01-22] MEDS: levalbuterol HCL 1.25 MG/3 ML VIAL.NEB INHALE (07:47)
[2024-01-22] MEDS: Fluticasone/Vilanterol 200/25 BLST.W.DEV 1 PUFF INHALE (07:47)
[2024-01-22 07:51] VITALS: PULSE 79; RESP 18; O2SAT 93
[2024-01-22] MEDS: Dronedarone HCl 400 MG TABLET PO (08:44)
[2024-01-22] MEDS: Loratadine 10 MG TABLET PO (08:44)
[2024-01-22] MEDS: Cholecalciferol (Vitamin D3) 25 MCG TABLET 125 MCG PO (08:44)
[2024-01-22] MEDS: Apixaban 5 MG TABLET PO (08:44)
[2024-01-22] MEDS: 0.9 % Sodium Chloride Flush 3 ML SYRINGE IVFLUSH (08:46)
--- NOTE | 2024-01-22 10:49 | P.DS_ITS ---
DS: Providers Provider Date of Service: 01/22/24 Date of admission: 01/16/24 12:39 Primary care physician: GAURI Leonard Consults: 01/18/24 11:02 Consult to Cardiology Routine Consulting Provider: [facility] [place] [facility] Reason for consultation: new afib Has provider been notified: No 01/20/24 07:24 Consult to Infectious Diseases Routine Consulting Provider: [facility] [place] [facility] Reason for consultation: Possible aspergillosis Consult to Pulmonology Routine Consulting Provider: [facility] [place] [facility] Reason for consultation: Possible aspergillosis DS: Diagnosis Discharge Diagnosis (1) Acute respiratory failure with hypoxia: Status: Acute (2) Pneumonia: Status: Acute DS: Summary Hospital Course Hospital Course: Patient is a 73yo female with history of COPD who presents with increased shortness of breath. She has had increasing SOB for weeks and is on a prednisone taper. Patient was discharged from [facility] on 03/2023 and at that time treated for upper respiratory infection with rhino virus and enterovirus being positive. She was treated with steroids and DuoNebs. She reports she got home but still did not feel well and continued to worsen with increasing shortness a breath. She denied chest pain, nausea, vomiting, diarrhea, fever. Chest x-ray showing increased patchy and streaky bibasilar opacities, she was placed on high-flow oxygen with oxygen saturation around 90%. In the ER patient was given albuterol, Solu-Medrol, potassium, Rocephin, azithromycin. Admitted for further management and treatment of community-acquired pneumonia. 73-year-old woman treated for community-acquired pneumonia with recent diagnosis of entero virus/rhino virus. She did not have sepsis, she was treated with Rocephin, azithromycin, Solu-Medrol and DuoNebs. She was placed on high-flow for few days and subsequently weaned off to 3 L nasal cannula and today on room air. Because of the continue hypoxia CTA was done and was negative for PE. She was seen evaluated by pulmonology and Infectious Disease as she had a previous sputum culture with Aspergillus but neither thought she needed to have treatment for this. She was seen by Physical therapy who recommended home physical therapy. She was noted to have 5 hypokalemia which resolved with replacement. She developed atrial fibrillation with rapid ventricular response and was started on Multaq and Eliquis . She should continue this and follow up with Cardiology for medication management. She did request a new DuoNebs machine which was sent to her pharmacy. She completed 7 days of antibiotics. She will be discharged on a prednisone taper and NT Tussin to be use as needed. Hypertension. Continue amlodipine GERD. Continue PPI Time Attestation Discharge Coordination Time (in mins): 40 Quality: Safe Use of Opioids Does Pt have an Active Cancer Diagnosis on the Problem List?: No Quality: Stroke Does the patient have a stroke diagnosis?: No Physical Exam Vital Signs: Vital Signs: Last Vital Signs Temp 97.4 F 01/22/24 07:33 Pulse 79 01/22/24 07:51 Resp 18 01/22/24 07:51 BP 127/80 01/22/24 07:33 Pulse Ox 93 01/22/24 07:33 O2 Del Method Nasal Cannula 01/22/24 07:33 O2 Flow Rate 3 01/22/24 07:33 FiO2 34.1 01/20/24 15:33 Oxygen Flow Rate 15 01/16/24 09:16 BMI result Body Mass Index 31.2 Appearing in no acute distress head is normocephalic atraumatic eyes pupils are PERRLA sclera is anicteric mouth throat mucous membranes are intact and moist neck is supple no lymphadenopathy, no JVD noted lung sounds are clear to auscultation heart regular rate rhythm, clear S1, S2 positive bowel sounds, abdomen is soft, nontender neuro patient is alert x3, no focal deficits Discharge Plan Discharge Anticipated Discharge Date/Time: 01/22/24 10:40 Patient Disposition: Home Health Service Discharge Diagnosis: Community-acquired pneumonia Enterovirus/rhino virus Hypokalemia Atrial fibrillation with rapid ventricular response Referrals: [facility] [Outside] - 1 Week Rachel Mays FNP [Primary Care Provider] - 1 Week Kali Christiansen MD [Physician] - 1 Week (medication management ) Discharge Medications: New Multaq 400 mg Tablet 400 mg PO BID Qty: 60 0RF Eliquis 5 mg Tablet 5 mg PO BID Qty: 60 0RF (DME) nebulizer and compressor Device See Rx Instructions .Route Qty: 1 0RF Rx Instructions: As directed (DME) nebulizer accessories Kit See Rx Instructions .Route Qty: 1 0RF Rx Instructions: As directed prednisone 10 mg tablet See Taper PO DIRECTED Qty: 20 0RF Taper: Prednisone 40 mg daily for 2 Days and 0 Hour 30 mg daily for 2 Days and 0 Hour 20 mg daily for 2 Days and 0 Hour 10 mg daily for 2 Days and 0 Hour Rx Instructions: see taper instructions benzonatate 100 mg capsule 100 mg PO BID PRN (Reason: cough) Qty: 10 0RF Continued amlodipine 10 mg tablet 10 mg PO BEDTIME omeprazole 20 mg capsule,delayed release(DR/EC) 20 mg PO DAILY@0630 montelukast 10 mg tablet 10 mg PO BEDTIME omega 8-wtz-olj-fish oil [Fish Oil] 1,000 mg (120 mg-180 mg) Capsule 1 cap PO DAILY albuterol sulfate 90 mcg/actuation HFA aerosol inhaler 2 puff INHALATION Q4H PRN (Reason: Wheezing) budesonide-formoterol [Symbicort] 160-4.5 mcg/actuation HFA aerosol inhaler 2 puff inhalation BID cholecalciferol (vitamin D3) [Vitamin D3] 125 mcg (5,000 unit) Tablet 125 mcg PO DAILY cyclosporine 0.05 % dropperette 1 drp ophthalmic (eye) Q12H PRN (Reason: Dry Eye(S)) Rx Instructions: Both eyes cetirizine [Zyrtec] 10 mg Tablet 10 mg PO DAILY guaifenesin 100 mg/5 mL Liquid 200 mg PO Q4H PRN (Reason: Cough) Qty: 473 0RF albuterol sulfate 2.5 mg /3 mL (0.083 %) solution for nebulization 2.5 mg inhalation Q6H PRN (Reason: Shortness Of Breath Or Wheezing) Qty: 75 0RF Discharge Orders: Discharge Order (Routine); Ordered 01/22/24 Ordered By: Wanda Macdonald Diet: Advance to usual diet Activity on Discharge: As tolerated Stand Alone Forms: Patient Portal Discharge page Print Language: Guatemalan Care Plan Goals: Home with physical therapy services Health Concerns: Community-acquired pneumonia Enterovirus/rhino virus Hypokalemia Atrial fibrillation with rapid ventricular response Plan of Treatment: Follow-up with your primary care provider as needed Take all medications as prescribed Assessment: See discharge summary
--- NOTE | 2024-01-22 10:55 | W.MHC.F2F ---
Service Date Service Date: 01/22/24 Encounter Date of encounter: 01/22/24 Reasons for Services Signs and symptoms assessed: Atrial fibrillation with rapid ventricular response Pneumonia Asthma exacerbation Reason for physical therapy: home safety and mobility Homebound: Leaving the home is medically contraindicated at this time without the asist of a device and/or another person due th the listed conditions above and below. Reason homebound: weakness related to hospital stay Certification: Based on the above findings, I certify that this patient is confined to the home and needs intermittent residential care, physical therapy and/or speech therapy, or continues to need occupational therapy. The patient is under my care, and I have initiated the establishment of the plan of care. The patient will be followed by a physician who will periodically review the plan of care. Time Spent With Patient Time: Total time managing care of this patient today ____ minutes.
--- NOTE | 2024-01-22 11:48 | MHC.CM.PN ---
Patient has been medically cleared for dc to home today, with services.[facility] has accepted patient and has been made aware of today's dc. IMM addressed with Patient, at bedside.
== END 2024-01-22 12:39 | disposition home health service (06) | DRG 194 ==
LOC: HO.ED 12:18 → HO.EDOVER 13:00 → HO.S3 16:45 → HO.IMC 17:21
PROVIDERS: Physician Assistant Medical; Admitting Provider Nurse Practitioner Acute Care; Emergency Provider Emergency Medicine; PCP Nurse Practitioner Family; Visit Provider Nurse Practitioner Acute Care
DX: J18.9 Pneumonia, unspecified organism (principal); E87.20 Acidosis, unspecified; J44.0 Chronic obstructive pulmonary disease with (acute) lower respiratory infection; J45.40 Moderate persistent asthma, uncomplicated; I10 Essential (primary) hypertension; I48.91 Unspecified atrial fibrillation; E87.6 Hypokalemia; K21.9 Gastro-esophageal reflux disease without esophagitis; Z20.822 Contact with and (suspected) exposure to COVID-19; Z79.899 Other long term (current) drug therapy
CPT/HCPCS: 0241U; 36415; 71045; 71275; 80048; 82803; 83605; 83735; 83880; 84443; 84484; 85025; 85027; 87040; 93005; 93306; 94640; 97162; 99285; J0456; J0696; J1160; J1650; J1940; J2405; J2919; Q9957; Q9967

== ENCOUNTER → 2024-01-16 09:17 | Outpatient (BNV) | payer MEDICARE, SELFPAY | PROVIDERS: Admitting Provider Nurse Practitioner Acute Care; Emergency Provider Emergency Medicine; PCP Nurse Practitioner Family; Visit Provider Internal Medicine Cardiovascular Disease | DX: R00.0 Tachycardia, unspecified (principal); R94.31 Abnormal electrocardiogram [ECG] [EKG] | CPT/HCPCS: 93010 ==

== ENCOUNTER 2024-01-16 12:39 | Outpatient (BNV) | payer MEDICARE, SELFPAY | END 2024-01-18 15:40 | PROVIDERS: Admitting Provider Nurse Practitioner Acute Care; Emergency Provider Emergency Medicine; PCP Nurse Practitioner Family; Visit Provider Radiology Diagnostic Radiology | DX: R06.02 Shortness of breath (principal); R09.02 Hypoxemia | CPT/HCPCS: 71045 ==

== ENCOUNTER 2024-01-16 12:39 | Outpatient (BNV) | payer MEDICARE, SELFPAY | END 2024-01-18 10:47 | PROVIDERS: Admitting Provider Nurse Practitioner Acute Care; Emergency Provider Emergency Medicine; PCP Nurse Practitioner Family; Visit Provider Internal Medicine Cardiovascular Disease | DX: I48.91 Unspecified atrial fibrillation (principal) | CPT/HCPCS: 93010; 93306 ==

== ENCOUNTER → 2024-01-16 12:39 | Outpatient (BNV) | payer MEDICARE, SELFPAY | PROVIDERS: Admitting Provider Nurse Practitioner Acute Care; Emergency Provider Emergency Medicine; PCP Nurse Practitioner Family; Visit Provider Nurse Practitioner Acute Care | DX: J96.01 Acute respiratory failure with hypoxia (principal); J18.9 Pneumonia, unspecified organism | CPT/HCPCS: 99223; 99232; 99233; 99239; G0180 ==

== ENCOUNTER → 2024-01-16 12:39 | Outpatient (BNV) | payer MEDICARE, SELFPAY | PROVIDERS: Admitting Provider Nurse Practitioner Acute Care; Emergency Provider Emergency Medicine; PCP Nurse Practitioner Family; Visit Provider Internal Medicine Pulmonary Disease | DX: J45.909 Unspecified asthma, uncomplicated (principal); J96.01 Acute respiratory failure with hypoxia | CPT/HCPCS: 99232 ==

== ENCOUNTER → 2024-01-16 12:39 | Outpatient (BNV) | payer MEDICARE, SELFPAY | PROVIDERS: Admitting Provider Nurse Practitioner Acute Care; Emergency Provider Emergency Medicine; PCP Nurse Practitioner Family; Visit Provider Internal Medicine Cardiovascular Disease | DX: I48.91 Unspecified atrial fibrillation (principal) | CPT/HCPCS: 99222; 99233 ==

== ENCOUNTER → 2024-01-16 12:39 | Outpatient (BNV) | payer MEDICARE, SELFPAY | PROVIDERS: Admitting Provider Nurse Practitioner Acute Care; Emergency Provider Emergency Medicine; PCP Nurse Practitioner Family; Visit Provider Internal Medicine | DX: J96.01 Acute respiratory failure with hypoxia (principal); J18.9 Pneumonia, unspecified organism | CPT/HCPCS: 99222 ==

== ENCOUNTER 2024-03-20 12:45 | Outpatient (REF) | payer MEDICARE, SELFPAY ==
--- OUTSIDE RECORDS SUMMARY | 2024-03-20 13:58 | XMS_ITS | Continuity of Care Document ---
Author Name [facility] Organization Interface Problems Problem Status Onset Date Classification Date Reported Comments Source Disease caused by 2019-nCoV 12/14/2023 12/15/2023 [facility] Exacerbation of asthma (disorder) 12/14/2023 12/15/2023 [facility] Asthma (disorder) 12/14/2023 12/15/2023 [facility] COVID-19 virus infection Active 12/14/2023 12/15/2023 [facility] Asthma with acute exacerbation Active 12/14/2023 12/15/2023 [facility] Asthma Active 12/14/2023 12/15/2023 [facility] Asthma Active 12/15/2023 [facility] Medications Medication Details Route Status Patient Instructions Ordering Provider Order Date Source predniSONE 50 mg oral tablet
50 mg, = 1 Tablet, Orally, Daily, for 5 Days, Acute, Dispense: 5 Tablet, Refills: 0, Total Refills: 0, 12/14/23 4:01:00 PM EDT, 12/19/23 4:01:00 PM EDT, Pharmacy: [facility]/pharmacy #[id number], 1 Tablet Orally Daily,x5 Days, 76.4, kg, 12/14/23 13:44:00 EDT, Weight for Calculation Active 024 [facility] nirmatrelvir-dwight navir 150 mg-100 mg (300 mg-100 mg Dose) oral tablet
= 3 Tablet, Orally, BID, for 5 Days, Acute, Dispense: 30 Tablet, Refills: 0, Total Refills: 0, eGFR greater than or equal to 60, 12/14/23 4:01:00 PM EDT, 12/19/23 4:01:00 PM EDT, Pharmacy: [facility]/pharmacy #[id number], 3 Tablet Orally BID,x5 Days,Instr:eGF R greater than or equal to 60, 76.4, kg, 12/14/23 13:44:00 EDT, Weight for Calculation Active [facility] ondansetron 4 mg oral tablet, disintegrating
4 mg, = 1 Tablet, Orally, Q6H, PRN nausea, for 10 Days, Acute, Dispense: 30 Tablet, Refills: 0, Total Refills: 0, 12/14/23 4:01:00 PM EDT, 12/24/23 4:01:00 PM EDT, Pharmacy: [facility]/pharmacy #[id number], 1 Tablet Orally Q6H,x10 Days,PRN:nause a, 76.4, kg, 12/14/23 13:44:00 EDT, Weight for Calculation Active [facility] amLODIPine 10 mg oral tablet
Maintenan ce, Refills: 0, Total Refills: 0, 12/14/23 1:53:00 PM EDT Active [address] [place] [address] omeprazole 20 mg oral delayed release capsule
Maintenan ce, Refills: 0, Total Refills: 0, 12/14/23 1:53:00 PM EDT Active [address] [place] [address] Symbicort 160 mCg-4.5 mCg/inh inhalation aerosol
Maintenan ce, 12/14/23 1:53:00 PM EDT Active [address] [place] [address] montelukast 10 mg oral tablet
Maintenan ce, Refills: 0, Total Refills: 0, 12/14/23 1:53:00 PM EDT Active [address] [place] [address] cyclosPORINE ophth 0.05% solution
Maintenan ce, Refills: 0, Total Refills: 0, 12/14/23 1:53:00 PM EDT Active [address] [place] [address] prednisoLONE acetate 1% ophthalmic suspension
Maintenan ce, Refills: 0, Total Refills: 0, 12/14/23 1:53:00 PM EDT Active [address] [place] [address] albuterol 2.5 mg/3 mL (0.083%) inhalation solution
Maintenan ce, 12/14/23 1:53:00 PM EDT Active 024 [facility] Allergies, Adverse Reactions, Alerts Substance Category Reaction Severity Reaction type Status Date Reported Comments Source codeine Assertion passed out Severe Drug allergy Active [facility] lisinopril Assertion SOA Severe Drug allergy Active [facility] Immunizations Immunization Date Given Site Status Last Updated Comments So urce Results Order Name Results Value Reference Range Date Interpretation Comments Source Molecular Diagnostics Studies COVID 19 Specimen Source Nasal (12/14/23 2:11 PM) 12/13 [facility] Molecular Diagnostics Studies Coronavirus SARS-CoV2 Rapid Detected 1 *ABN* (12/14/23 2:11 PM) 12/13 Interpretive Data: The crissy SARS-CoV-2 test for use with the crissy Mary System detects SARS-CoV-2, the virus responsible for coronavirus disease 2019 (COVID-19), by means of nucleic acid amplification (real-time PCR). This test s performance characteristic s were determined by [facility], and it is intended to be used according to the Emergency Use Authorization issued by the U.S. Food and Drug Administration . [facility] Vital Signs Vital Sign Value Date Comments Source Heart Rate Monitored 100 bpm 12/14/2023 [facility] Respiratory Rate 18 br/min 12/14/2023 [facility] Systolic Blood Pressure 141 mm[Hg] 12/14/2023 [facility] Diastolic Blood Pressure 74 mm[Hg] 12/14/2023 [facility] Heart Rate Monitored 98 bpm 12/14/2023 [facility] Weight for Calculation 76.40 kg 12/14/2023 [facility] Weight 76.4 kg 12/14/2023 [facility] Heart Rate Monitored 110 bpm 12/14/2023 [facility] Respiratory Rate 26 br/min 12/14/2023 [facility] Systolic Blood Pressure 164 mm[Hg] 12/14/2023 [facility] Diastolic Blood Pressure 78 mm[Hg] 12/14/2023 [facility] Mean Arterial Pressure, Cuff 107 mm[Hg] 12/14/2023 [facility] Encounters Location Location Details Encounter Type Encounter Number Reason For Visit Attending Provider ADM Date DC Date Status Source [facility] Emergency [id number] Medicine Emergency Services 12/13 [facility] Procedures Procedure Code Date Perfomer Comments Source No data available for this section [facility]
== END 2024-03-20 12:46 | disposition home or self-care (01) ==
LOC: HO.MAMMO 12:45
PROVIDERS: PCP Nurse Practitioner Family; Visit Provider Nurse Practitioner Family
DX: Z12.31 Encounter for screening mammogram for malignant neoplasm of breast (principal)
CPT/HCPCS: 77063; 77067

== ENCOUNTER → 2024-03-20 13:00 | Outpatient (BNV) | payer MEDICARE, SELFPAY | PROVIDERS: PCP Nurse Practitioner Family; Visit Provider Internal Medicine | DX: Z12.31 Encounter for screening mammogram for malignant neoplasm of breast (principal) | CPT/HCPCS: 77063; 77067 ==

== ENCOUNTER 2024-04-16 10:33 | Outpatient (REF) | payer MEDICARE, SELFPAY ==
[2024-04-16 11:38] LABS: Alanine Aminotransferase 40 U/L (0-31); Albumin Level 4.6 g/dL (3.5-5.0); Alkaline Phosphatase 77 U/L (39-117); Aspartate Amino Transferase 29 U/L (5-31); Bilirubin Direct 0.2 mg/dL (0.0-0.5); Bilirubin Total 0.7 mg/dL (0.0-1.0); Total Protein 7.8 g/dL (6.5-8.0)
[2024-04-25 01:39] LABS: FIB-ALT 29 U/L (6-29); FIB-Alpha-2-Macroglobulin 305 mg/dL (106-279); FIB-Apolipoprotein A1 154 mg/dL (101-198); FIB-GGT 37 U/L (3-65); FIB-Haptoglobin 191 mg/dL (43-212); FIB-Total Bilirubin 0.6 mg/dL (0.2-1.2); Liver Fibrosis Score 0.47; Liver Fibrosis Stage F1-F2; Nec Inflam Act Grade A0-A1; Nec Inflam Act Score 0.17; Reference ID 5333637
== END 2024-04-16 10:34 | disposition home or self-care (01) ==
LOC: HO.LAB 10:33
PROVIDERS: PCP Nurse Practitioner Family; Visit Provider Internal Medicine Gastroenterology
DX: K76.0 Fatty (change of) liver, not elsewhere classified (principal)
CPT/HCPCS: 36415; 80076; 81596

== ENCOUNTER 2024-05-25 22:57 | Inpatient (IN) | payer MEDICARE, SELFPAY ==
--- NOTE | 2024-05-25 | ECG_ITS ---
Test Reason : CHEST TIGHTNESS SOB Blood Pressure : */* mmHG Vent. Rate : 90 BPM Atrial Rate : 90 BPM P-R Int : 156 ms QRS Dur : 78 ms QT Int : 358 ms P-R-T Axes : 48 17 35 degrees QTcB Int : 437 ms Normal sinus rhythm Nonspecific ST abnormality Abnormal ECG When compared with ECG of 18-Jan-2024 16:07, No significant change was found Referred By: Generic ED Physician Electronically Signed By: Meek Morales
--- NOTE | ~2024-05-25 | CT_ITS ---
EXAMINATION: CT CHEST WITHOUT CONTRAST CLINICAL INFORMATION: Increased oxygen demand COMPARISON: May 31, 2024. TECHNIQUE: Multidetector volumetric CT imaging of the chest was done. Axial MIP volume rendering provided. Sagittal and coronal reformatted images were obtained. This CT examination was performed using dose optimization techniques as appropriate, variously including the following: *Automated exposure control *Adjustment of mA and/or kV according to patient size (this includes techniques or standardized protocols for targeted exams where dose is matched to indication/reason for exam; i.e. extremities or head) *Use of iterative reconstruction technique. DLP: 153 mGy centimeter. FINDINGS: PET AMBASSADOR: Large body habitus. No hyperinflation. Deviated to the right trachea. LUNGS: Bilateral, multifocal patchy pulmonary groundglass involving mostly the right lung and to a lesser extent left lung. There is confluent attenuation abnormality involving the left lower lung lobe with a focal 3.5 cm gasfield abnormality. Secretions side extending from the right mainstem bronchus to the subsegmental bronchi of the right lower lung lobe and right middle lung lobe. MEDIASTINUM: No lymphadenopathy. No aneurysm, thoracic aorta. No pericardial effusion. Small hiatal hernia. CORONARY ARTERY CALCIFICATION: No. PLEURA: Bilateral small trace pleural effusions. No pneumothorax. AXILLA: No lymphadenopathy. UPPER ABDOMEN: Small hiatal hernia. OSSEOUS STRUCTURES: A S-shaped curvature of the thoracic spine. Multilevel cervical thoracic spondylosis. Calcified deformity apex at T7. No lytic or blastic lesions. No acute fracture or gross listhesis. CT/CT chest wo IV con IMPRESSION: Multifocal aspiration pneumonia involving mostly the right lung. Airspace disease with cavitation left lung base. The possibility of abscess versus bronchial fistula should be considered. Fleischner guidelines were followed. Electronically signed by: Emeka King MD 06/09/2024 10:41 AM EDT
--- NOTE | ~2024-05-25 | XR_ITS ---
EXAMINATION: XR CHEST 1 VIEW HISTORY: intubation COMPARISON: Comparison is made with the prior examination dated 05/25/2024. FINDINGS: A single AP portable view of the chest performed at 9:06 AM is submitted. An endotracheal tube is in place with the tip approximately 4.5 cm above the jo-ann. An orogastric tube terminates below the diaphragm. There is new confluent airspace opacity in the left upper lobe consistent with atelectasis or pneumonia. Additional patchy opacities are noted in the right upper lobe and in both lower lobes which may represent pneumonia. There is no pleural effusion, pneumothorax, or pulmonary vascular congestion. The heart is normal in size. There is degenerative disc disease of the spine. XR/XR chest 1V IMPRESSION: 1. Lines and tubes in place as described. 2. Left upper lobe atelectasis versus pneumonia. Additional opacities in the right upper lobe and both lower lobes may represent pneumonia. Electronically signed by: Marcin Riley MD 06/02/2024 09:23 AM EDT
--- NOTE | ~2024-05-25 | XR_ITS ---
CLINICAL HISTORY: chest tightness cough sob 1 view chest x-ray Comparison: CR/[place]/SR - XR CHEST 1V - 01/18/24 15:51 EST Findings: Cardiac silhouette is unchanged in size. Increased streaky density within the lung bases bilaterally, [id number]. Minor blunting of the costophrenic angles suggestive of small pleural effusions. No pneumothorax. Degenerative change of both shoulder joints. IMPRESSION: Likely linear bibasilar atelectasis with questionable tiny bilateral pleural effusions. This document has been electronically signed by: Nickolas Pablo MD on 05/26/2024 00:51:10
--- NOTE | ~2024-05-25 | FL_ITS ---
EXAMINATION: Modified Barium Swallow CLINICAL INFORMATION: Dysphagia; aspiration COMPARISON: None TECHNIQUE: Modified barium swallow was performed under lateral fluoroscopy with patient in standing position. Barium mixed with solids and liquids of different consistencies was administered by the speech pathologist. Examination was recorded in the fluoroscopy suite. FINDINGS: Flash laryngeal penetration noted on thin liquids, without glottic or subglottic aspiration. Moderate persistent cricopharyngeal achalasia noted. Mild persistent pooling in the vallecula, which did clear upon subsequent swallows. FLUOROSCOPY TIME: 2 minutes, 32 seconds Number of Spot Images: N/A DOSE AREA PRODUCT: 1313 uGy-m2 (microgray-meter squared) FL/FL Modified Barium Swallow IMPRESSION: 1. Transient laryngeal penetration on thin liquids. No glottic or subglottic aspiration. 2. Moderate persistent cricopharyngeal achalasia. Refer to the full speech therapy report for further detail. Electronically signed by: Santo Gardner MD 06/13/2024 02:56 PM EDT
--- NOTE | ~2024-05-25 | CT_ITS ---
CLINICAL HISTORY: pna; worsening hypoxia CT chest without contrast Comparison: 05/26/2024 Findings: The heart size is normal. The visualized thyroid and mediastinum are unremarkable. Evolving and overall progressive small scattered ground-glass right multilobar lung opacities primarily concerning for pneumonia. Progressive left more than right bilateral lower lobe opacification (the entirety of the left lower lobe and the majority of the basilar segment of the right lower lobe are involved) with associated progressive obscuration of the segmental lower lobe bronchi (the latter likely due to secretions) primarily due to aspiration pneumonia. Follow-up CT in 1 month for determination of the temporal evolution of finding recommended. One to 2 partially evaluated small calcified right subcoracoid recess intra-articular bodies. Colonic diverticulosis without diverticulitis. Stable nonspecific small sclerotic focus in 1 of the midthoracic vertebral bodies. Spinal degenerative changes. IMPRESSION: Evolving and overall progressive small scattered ground-glass right multilobar lung opacities primarily concerning for pneumonia. Progressive left more than right bilateral lower lobe opacification (the entirety of the left lower lobe and the majority of the basilar segment of the right lower lobe are involved) with associated progressive obscuration of the segmental lower lobe bronchi (the latter likely due to secretions) primarily due to aspiration pneumonia. Follow-up CT in 1 month for determination of the temporal evolution of finding recommended. This document has been electronically signed by: Tiffanie Whitten MD on 05/31/2024 11:08:46
--- NOTE | ~2024-05-25 | CT_ITS ---
CLINICAL HISTORY: hypoxia, sob CT angiography chest with contrast. 3D Postprocessing. Comparison: CR - XR CHEST 1V - 05/25/24 23:[address]/SR - CT ANGIO CHEST PE PROTOCOL - 01/19/24 12:29 EST Findings: There is appropriate contrast opacification of the main, lobar, and segmental pulmonary arteries. No filling defects identified to suggest pulmonary embolism. Thoracic aorta is nonaneurysmal. No enlarged mediastinal, hilar, or axillary lymph nodes identified. Overall heart size is within normal limits. Consolidation within the dependent portion of the lower lobes bilaterally. No pleural effusion or pneumothorax. There is a fat containing right-sided Bochdalek type hernia. [id number]-pioqxzju emphysematous changes throughout the lungs with a few areas of peripheral ground-glass density. Small hiatal hernia with air-filled distention of the mid to distal esophagus. No free fluid or free air within the upper abdomen. Low-attenuation throughout the liver is indicative of fatty infiltration. Multilevel degenerative disc disease and degenerative facet disease without acute fracture. IMPRESSION: 1. No pulmonary embolus. 2. Dense consolidation within the dependent portion of the lower lobes bilaterally, atelectasis versus pneumonia. 3. Emphysematous changes with scattered areas of peripheral ground-glass density. This suggests an infectious or inflammatory process. This document has been electronically signed by: Nickolas Pablo MD on 05/26/2024 02:25:46
--- NOTE | ~2024-05-25 | XR_ITS ---
EXAMINATION: XR CHEST 1 VIEW HISTORY: pneumonia COMPARISON: Comparison is made with the prior examination dated 06/02/2024. FINDINGS: A single AP portable view of the chest performed at 9:17 AM. is submitted. The previously seen endotracheal and orogastric tubes have been removed. There is complete resolution of the previously seen airspace opacity in the left upper lung zone. There are linear opacities at the lung bases consistent with subsegmental atelectasis. There is no pleural effusion, pneumothorax, or pulmonary vascular congestion. The heart is normal in size. There is degenerative disc disease of the spine. XR/XR chest 1V IMPRESSION: Resolution of the previously seen left upper lobe atelectasis versus pneumonia. Bibasilar subsegmental atelectasis. Electronically signed by: Marcin Riley MD 06/05/2024 09:33 AM EDT
--- NOTE | ~2024-05-25 | XR_ITS ---
EXAMINATION: XR CHEST 1 VIEW HISTORY: Status post ET tube placement COMPARISON: Comparison is made with the prior examination dated 06/05/2024. FINDINGS: A single AP portable view of the chest performed at 12:19 PM is submitted. There is been interval placement of an endotracheal tube with its tip approximately 3.5 cm above the jo-ann. The tip and sidehole of an orogastric tube are noted along the diaphragm. There is patchy airspace opacity at the left lung base, consistent with atelectasis or pneumonia. There may be a small left pleural effusion. There is no pneumothorax or pulmonary vascular congestion. The heart is normal in size. The bones are intact. XR/XR chest 1V IMPRESSION: Lines and tubes in place as described. Left basilar atelectasis versus pneumonia. Electronically signed by: Marcin Riley MD 06/09/2024 12:29 PM EDT
[2024-05-25 23:08] VITALS: BP 134/67; PULSE 95; RESP 22; TEMP 36.6; O2SAT 89; BMI 32.4
[2024-05-25 23:09] VITALS: BP 145/81; PULSE 98; O2SAT 94
--- NOTE | 2024-05-25 23:25 | ED_ITS ---
HPI - General Adult General Chief complaint: Dyspnea Stated complaint: possible sepsis sob wheezing,coughing Time Seen by Provider: 05/25/24 23:14 Source: patient and EMS Mode of arrival: EMS Limitations: no limitations History of Present Illness ED Provider: DR. Shabazz HPI narrative: A 73-year-old female history of asthma presented for evaluation of productive cough and shortness of breath for 1 week, was seen at urgent care 2 days ago head negative chest x-ray and negative flu testing patient was discharged ome with a course of amoxicillin and prednisone patient felt better for 1 day, patient started to have progression of her symptoms since yesterday. Patient initially found to be hypoxic at 84% on room air, transported with 2 L of nasal cannula by EMS O2 sat was 89% on room air improved with 4 L of nasal cannula. Patient had prior hospitalization for similar presentation when she had community-acquired pneumonia with acute respiratory failure and hypoxia. Patient is nonsmoker, no facial diagnosis of COPD. Related Data Home Medications ?Medication ?Instructions ?Recorded ?Confirmed amlodipine 10 mg tablet 10 mg PO BEDTIME 10/12/22 01/16/24 montelukast 10 mg tablet 10 mg PO BEDTIME 10/12/22 01/16/24 omega 4-pbm-amt-fish oil 1,000 mg 1 cap PO DAILY 10/12/22 01/16/24 (120 mg-180 mg) capsule (Fish Oil) omeprazole 20 mg capsule,delayed 20 mg PO DAILY@0630 10/12/22 01/16/24 release albuterol sulfate 90 mcg/actuation 2 puff inhalation Q4H PRN Wheezing 10/01/23 01/16/24 aerosol inhaler budesonide-formoterol HFA 160 2 puff inhalation BID 10/01/23 01/16/24 mcg-4.5 mcg/actuation aerosol inhaler (Symbicort) cholecalciferol (vitamin D3) 125 125 mcg PO DAILY 10/01/23 01/16/24 mcg (5,000 unit) tablet (Vitamin D3) cetirizine 10 mg tablet (Zyrtec) 10 mg PO DAILY 01/10/24 01/16/24 cyclosporine 0.05 % eye drops in a 1 drp ophthalmic (eye) Q12H PRN 01/10/24 01/16/24 dropperette Dry Eye(S) Previous Rx's ?Medication ?Instructions ?Recorded guaifenesin 100 mg/5 mL oral liquid 200 mg (10 mL) PO Q4H PRN Cough 01/11/24 #473 mL albuterol sulfate 2.5 mg/3 mL 2.5 mg (3 mL) inhalation Q6H PRN 01/22/24 (0.083 %) solution for nebulization Shortness Of Breath Or Wheezing #75 mL apixaban 5 mg tablet (Eliquis) 5 mg PO BID #60 tabs 01/22/24 benzonatate 100 mg capsule 100 mg PO BID PRN cough #10 caps 01/22/24 dronedarone 400 mg tablet (Multaq) 400 mg PO BID #60 tabs 01/22/24 nebulizer accessories #1 ea 01/22/24 nebulizer and compressor #1 ea 01/22/24 prednisone 10 mg tablet See Taper PO DIRECTED #20 tabs 01/22/24 Allergies Allergy/AdvReac Type Severity Reaction Status Date / Time lisinopril Allergy Severe Difficulty Verified 05/25/24 23:09 Breathing codeine Allergy Intermediate Unconscious Verified 05/25/24 23:09 Review of Systems 2 Review of Systems: All other systems are reviewed and are negative Constitutional: Reports as per HPI and Reports no additional constitutional complaints Eyes: Reports as per HPI and Reports no additional eye complaints Reports system reviewed and no additional complaints, except as documented Cardiovascular: Reports as per HPI and Reports no additional cardiovascular complaints Respiratory: Reports as per HPI and Reports no additional respiratory complaints Gastrointestinal: Reports as per HPI and Reports no additional gastrointestinal complaints Genitourinary: Reports no additional female genitourinary complaints Musculoskeletal: Reports no additional musculoskeletal complaints Skin/Breast: Reports system reviewed and no additional complaints, except as docu Psychiatric: Reports no additional psychiatric complaints Endocrine: Reports no additional endocrine complaints Hematologic/Lymphatic: Reports no additional hematologic/lymphatic complaints Allergic/Immunologic: Reports no additional allergic/immunologic complaints Reports system reviewed and no additional complaints, except as documented and Reports Abnormal speech present [facility] Past Medical History Medical History (Updated 05/26/24 @ 02:56 by Lillian Shabazz MD) Pneumonia Hyperparathyroidism Fatty liver Osteopenia Acid reflux disease Basal cell carcinoma Asthma HLD (hyperlipidemia) HTN (hypertension) Surgical History H/O parathyroidectomy History of removal of both ovaries H/O section Hx of tonsillectomy H/O colonoscopy Social History Social History Household Members: Spouse Housing: Condominium Do you presently have visiting nurse or other home services: No Alcohol intake: never Patient Tobacco Use Status: Never used Tobacco Smoked in Last 30 Days: No Second Hand Smoke Exposure: No Use of substances other than those prescribed or required for medical reasons: No Advance Directives: Yes Advance Directives on File: Yes Advance Directives Date on File: 01/10/24 Do you have a plan to hurt others: No Plan service: No Physical Exam ED Vital Signs: Vital Signs - 24 hr 05/25/24 23:08 05/26/24 00:13 05/26/24 00:24 Temperature 97.8 F 98.1 F Pulse Rate 95 83 Respiratory Rate 22 H 17 Blood Pressure 134/67 129/72 Pulse Oximetry 89 L 91 L 93 Oxygen Delivery Method Nasal Cannula Nasal Cannula Oxymask Oxygen Flow Rate 4 6 05/26/24 01:50 Temperature 97.8 F Pulse Rate 90 Respiratory Rate 20 Blood Pressure 126/71 Pulse Oximetry 92 Oxygen Delivery Method Oxymask Oxygen Flow Rate 6 BMI result Body Mass Index 32.4 Vital signs have been reviewed and appear to be correct. Blood pressure elevated. Heart rate normal. Respiratory rate normal. Temperature normal. Oxygen saturation normal. Appearance: Alert. Oriented X3. No acute distress. Head: Normal external exam. Normocephalic. Atraumatic. No Keita signs noted. No raccoon eyes noted Eyes: PERRLA. EOMI. Conjunctiva and sclera normal. Eyelids normal. ENT: TM's Normal. Pharynx normal. Uvula midline. Moist mucous membranes. No trismus noted. No drooling noted. No muffled voice noted. Neck: Normal inspection. Neck supple. FROM. No adenopathy. Thyroid Normal. No meningeal signs. No neck mass noted. CVS: Normal heart rate and rhythm. Heart sound normal. No murmurs noted. Pulses normal throughout. Respiratory: No respiratory distress. Painless inspiration. diffuse expiratory wheezing bilaterally with prolonged expiratory phase, decreased breathing sounds bilaterally. No accessory muscle usage noted or decreased air movement noted. Abdomen: Soft and nontender. Bowel sounds normal in all 4 quadrants. No distention noted. No organomegaly noted. No visible injury noted. Back: No CVA tenderness. Full range of motion noted. Skin: Skin warm and dry. Normal skin color. Normal skin turgor. No rashes/lesions/lacerations noted. Extremities: No lower extremity edema. Extremities exhibit normal range of motion. Extremities nontender. Neuro: Oriented X 3. Cranial nerve exam: II-XII are grossly intact No motor deficit. No sensory deficit. Reflexes normal. Course Reevaluation(s) Reevaluation #1: 73-year-old female presented with cough and hypoxia. 1. CTA chest to rule out pulmonary embolism revealed possible pneumonia which is very possible with the patient findings, patient meets criteria for SIRS, blood cultures pending, received IV fluids and IV antibiotic. 2. History of acute respiratory failure with hypoxia which is similar to her presentation today, 0 2 is stable with 6 L of OxyMask. 3. Stable to be admitted to the medical floor case discussed with Dr. Garnett who accepted the patient. Time: 02:50 Medications Administered Discontinued Medications Generic Name Dose Route Start Last Admin Trade Name Freq PRN Reason Stop Dose Admin Ceftriaxone Sodium 1 gm 05/25/24 23:22 05/25/24 23:45 Ceftriaxone Sodium 1 Gm Vial IVPUSH 05/25/24 23:23 1 gm ONCE ONE Administration Sodium Chloride 1,000 mls @ 999 mls/hr 05/25/24 23:22 05/26/24 00:57 Ns IV 05/26/24 00:22 Infused .Q1H1M ONE Infusion Iohexol 65 ml 05/26/24 01:47 05/26/24 01:48 Iohexol 350 Mg/Ml 100 Ml Infus..Btl IV 05/26/24 01:48 65 ml ONCE ONE Administration Medical Decision Making Differential Diagnosis Differential Diagnoses: The differential diagnosis associated with the presentation includes ( Pulmonary embolism, ACS, pneumonia, pneumothorax, pleural effusion, severe anemia, electrolyte derangement, viral upper respiratory infection.) Admission/Observation Consideration of admission/observation: Escalation of care including admission/observation considered Consult Healthcare Provider Management of the patient was discussed with: Hospitalist ( Dr. Reeves) Lab Data MDM Lab Attestation statement: I reviewed the patient's lab results. 05/25/24 23:17 05/25/24 23:17 Labs: Lab Results 0305/25/24 05/25/24 Range/Units 23:17 23:30 23:31 WBC 9.0 (4.8-10.8) X10*3/uL RBC 4.55 (4.20-5.50) X10*6/uL Hgb 13.5 (12.0-16.0) g/dl Hct 39.3 (37.0-47.0) % MCV 86.4 (80.0-98.0) fL MCH 29.7 (27.0-33.0) pg MCHC 34.4 (31.0-35.0) g/dl RDW 13.0 (11.0-16.0) % Plt Count 342 (160-400) X10*3/uL MPV 9.7 (9.4-12.3) fL Immature Gran % (Auto) 0.8 H (0.0-0.4) % Neut % (Auto) 76.7 H (45-73) % Lymph % (Auto) 14.0 L (20-40) % [place] % (Auto) 8.1 (2-11) % Eos % (Auto) 0.1 (0-4) % Baso % (Auto) 0.3 (0-2) % Lymph # (Auto) 1.3 (1.2-4.9) X10*3/uL [place] # (Auto) 0.7 (0.1-1.2) X10*3/uL Eos # (Auto) 0.0 (0.0-0.4) X10*3/uL Baso # (Auto) 0.0 (0.0-0.2) X10*3/uL Abs Immat Gran (auto) 0.07 H (0.00-0.03) X10*3/uL Absolute Neuts (auto) 6.9 (2.0-8.3) x10*3/uL Absolute Nucleated RBC 0.000 (0.0-0.012) X10*3/uL Nucleated RBC % (auto) 0.0 (0.0-0.2) /100WBC D-Dimer High Sensitivty NG/ML VBG pH 7.44 H (7.32-7.43) VBG pCO2 30 mmHg VBG pO2 65 mmHg VBG HCO3 21 L (22-26) mmol/L VBG O2 Saturation 92.0 % VBG Base Excess -1.8 mmol/L Sodium 139 (135-145) mmol/L Potassium 3.7 (3.3-5.1) mmol/L Chloride 107 (96-108) mmol/L Carbon Dioxide 20 L (22-29) mmol/L Anion Gap 16 (12-20) BUN 17 H (9-16) mg/dL Creatinine 0.78 (0.5-1.4) mg/dL Estim Creat Clear Calc 62.1 Estimated GFR > 60 Random Glucose 110 (60-115) mg/dL Lactic Acid 2.3 H* (0.5-2.0) mmol/L Lactic Acid F/U @ 2Hr (0.5-2.0) mmol/L Calcium 9.5 (8.4-10.2) mg/dL Magnesium 2.1 (1.6-2.6) mg/dL Total Bilirubin 0.3 (0.0-1.0) mg/dL AST 30 (5-31) U/L ALT 45 H (0-31) U/L Alkaline Phosphatase 79 (39-117) U/L Troponin I High Sens < 2.7 (<3.5-17.0) ng/L B-Natriuretic Peptide 74 (<100) pg/mL Total Protein 7.6 (6.5-8.0) g/dL Albumin 4.5 (3.5-5.0) g/dL Lipase 22 (8-78) U/L Influenza Type A (PCR) NEGATIVE (Negative) Influenza Type B (PCR) NEGATIVE (Negative) RSV RNA Qual (PCR) NEGATIVE (Negative) SARS-CoV-2 RNA (RT-PCR) NEGATIVE (Negative) 05/25/24 05/26/24 Range/Units 23:41 01:49 WBC (4.8-10.8) X10*3/uL RBC (4.20-5.50) X10*6/uL Hgb (12.0-16.0) g/dl Hct (37.0-47.0) % MCV (80.0-98.0) fL MCH (27.0-33.0) pg MCHC (31.0-35.0) g/dl RDW (11.0-16.0) % Plt Count (160-400) X10*3/uL MPV (9.4-12.3) fL Immature Gran % (Auto) (0.0-0.4) % Neut % (Auto) (45-73) % Lymph % (Auto) (20-40) % [place] % (Auto) (2-11) % Eos % (Auto) (0-4) % Baso % (Auto) (0-2) % Lymph # (Auto) (1.2-4.9) X10*3/uL [place] # (Auto) (0.1-1.2) X10*3/uL Eos # (Auto) (0.0-0.4) X10*3/uL Baso # (Auto) (0.0-0.2) X10*3/uL Abs Immat Gran (auto) (0.00-0.03) X10*3/uL Absolute Neuts (auto) (2.0-8.3) x10*3/uL Absolute Nucleated RBC (0.0-0.012) X10*3/uL Nucleated RBC % (auto) (0.0-0.2) /100WBC D-Dimer High Sensitivty 150 NG/ML VBG pH (7.32-7.43) VBG pCO2 mmHg VBG pO2 mmHg VBG HCO3 (22-26) mmol/L VBG O2 Saturation % VBG Base Excess mmol/L Sodium (135-145) mmol/L Potassium (3.3-5.1) mmol/L Chloride (96-108) mmol/L Carbon Dioxide (22-29) mmol/L Anion Gap (12-20) BUN (9-16) mg/dL Creatinine (0.5-1.4) mg/dL Estim Creat Clear Calc Estimated GFR Random Glucose (60-115) mg/dL Lactic Acid (0.5-2.0) mmol/L Lactic Acid F/U @ 2Hr 1.4 (0.5-2.0) mmol/L Calcium (8.4-10.2) mg/dL Magnesium (1.6-2.6) mg/dL Total Bilirubin (0.0-1.0) mg/dL AST (5-31) U/L ALT (0-31) U/L Alkaline Phosphatase (39-117) U/L Troponin I High Sens (<3.5-17.0) ng/L B-Natriuretic Peptide (<100) pg/mL Total Protein (6.5-8.0) g/dL Albumin (3.5-5.0) g/dL Lipase (8-78) U/L Influenza Type A (PCR) (Negative) Influenza Type B (PCR) (Negative) RSV RNA Qual (PCR) (Negative) SARS-CoV-2 RNA (RT-PCR) (Negative) Independent Interpretation I performed an independent interpretation of an: Plain X-Ray ( chest:Likely linear bibasilar atelectasis with questionable tiny bilateral pleural effusions.) and CT Scan ( CT angio of the chest:1. No pulmonary embolus. 2. Dense consolidation within the dependent portion of the lower lobes bilaterally, atelectasis versus pneumonia. 3. Emphysematous changes with scattered areas of peripheral ground-glass density. This suggests an infectious or inflammatory process.) Radiology Impression Discussion of test interpretation with radiology: I have reviewed the radiologist's reading. Chronic Conditions Patient?s care impacted by: Other ( Asthma) Critical Care Time Critical Care Time Critical Care Time: Yes Total Critical Care Time: 60 Attestation: The patient was critically ill with a high probability of imminent or life- threatening deterioration. I spent greater than 30 minutes of discontinuous time evaluating the patient, delivering critical care at the bedside, discussing evaluating data with consultants. Critical care time does not include time spent performing separately billable procedures or teaching. Time spent performing critical care was 60 minutes. Discharge Plan Discharge Clinical Impression: Pneumonia, Hypoxia Patient Disposition: Admitted As Inpatient
[2024-05-25 23:30] LABS: MANUAL DIFF FLAG NO
[2024-05-25 23:31] LABS: Basophils Percent Auto 0.3 % (0-2); Eosinophils Percent Auto 0.1 % (0-4); Hematocrit 39.3 % (37.0-47.0); Hemoglobin 13.5 g/dl (12.0-16.0); Imm Gran Abs Auto 0.07 X10*3/uL (0.00-0.03); Imm Gran Pct Auto 0.8 % (0.0-0.4); Lymphocytes Absolute Auto 1.3 X10*3/uL (1.2-4.9); Mean Corpuscular HGB Conc 34.4 g/dl (31.0-35.0); Mean Corpuscular Hemoglobin 29.7 pg (27.0-33.0); Mean Corpuscular Volume 86.4 fL (80.0-98.0); Mean Platelet Volume 9.7 fL (9.4-12.3); Monocytes Absolute Auto 0.7 X10*3/uL (0.1-1.2); Monocytes Percent Auto 8.1 % (2-11); Neutrophils Absolute Auto 6.9 x10*3/uL (2.0-8.3); Neutrophils Percent Auto 76.7 % (45-73); Platelet Count 342 X10*3/uL (160-400); Red Blood Count 4.55 X10*6/uL (4.20-5.50)
--- NOTE | 2024-05-25 23:38 | PC.NURSE ---
pt still only about 88-89% on 2L NC. bumped up to 4L per Dr toussaint request
[2024-05-25 23:39] LABS: VBG Base Excess -1.8 mmol/L; VBG HCO3 21 mmol/L (22-26); VBG pCO2 30 mmHg; VBG pH 7.44 (7.32-7.43); VBG pO2 65 mmHg
[2024-05-25 23:40] LABS: Venous Blood Gas Refer to POC result
[2024-05-25 23:45] LABS: Albumin Level 4.5 g/dL (3.5-5.0); Alkaline Phosphatase 79 U/L (39-117); Anion Gap 16 (12-20); Aspartate Amino Transferase 30 U/L (5-31); Bilirubin Total 0.3 mg/dL (0.0-1.0); Blood Urea Nitrogen 17 mg/dL (9-16); Calcium 9.5 mg/dL (8.4-10.2); Carbon Dioxide 20 mmol/L (22-29); Chloride 107 mmol/L (96-108); Creatinine Clr Calc Pharmacy 62.1; Estimated Glomerular Filt Rate > 60; Glucose Random 110 mg/dL (60-115); Lipase 22 U/L (8-78); Magnesium 2.1 mg/dL (1.6-2.6); Potassium 3.7 mmol/L (3.3-5.1); Sodium 139 mmol/L (135-145); Total Protein 7.6 g/dL (6.5-8.0)
[2024-05-25] MEDS: cefTRIAXone sodium 1 GM VIAL IVPUSH (23:45)
[2024-05-25] MEDS: 0.9 % Sodium Chloride 1,000 ML 999 ML IV (23:45)
[2024-05-25 23:50] LABS: B Type Natriuretic Peptide 74 pg/mL (<100)
[2024-05-25 23:54] LABS: Troponin-I High Sensitivity < 2.7 ng/L (<3.5-17.0)
[2024-05-25 23:54] LABS: Lactic Acid 2.3 mmol/L (0.5-2.0)
[2024-05-25 23:56] LABS: Alanine Aminotransferase 45 U/L (0-31)
[2024-05-26] VITALS (17 sets, daily range): BP systolic 120–164; BP diastolic 57–90; PULSE 83–99; RESP 14–23; TEMP 36.6–36.9; O2SAT 85–94; BMI 32.1
[2024-05-26 00:01] LABS: D Dimer High Sensitivity 150 NG/ML
[2024-05-26 00:08] LABS: Influenza A PCR NEGATIVE (Negative); Influenza B PCR NEGATIVE (Negative); Resp Syncy Virus RNA Qual PCR NEGATIVE (Negative); SARS COV2 PCR INHOUSE NEGATIVE (Negative)
--- NOTE | 2024-05-26 00:15 | MHC.EDTECH ---
This tech took over care of pt at 0000, rounded and introduced self to pt,vitals taken, O2 sats were low 91% on 4L, RN aware at bedside and placed pt on 6L oxymask, will continue to monitor, at bedside call butler in reach
--- NOTE | 2024-05-26 00:18 | PC.NURSE ---
pt remains around 91% on 4L NC. switched to oxymask per MD toussaint request pt denies any acute distress, no increased wob noted.
--- NOTE | 2024-05-26 01:29 | MHC.EDTECH ---
Patient rang to use the bathroom, pt refused bedside commode, assisted patient to the bathroom with portable O2 tank,patient has a steady gait, pt has no difficulty breathing at this time,call butler in reach
[2024-05-26 01:36] LABS: Reflex Lactate? Lactic Acid Added
[2024-05-26] MEDS: iohexoL 350 MG/ML 100 ML INFUS..BTL 65 ML IV (01:48)
--- NOTE | 2024-05-26 01:50 | MHC.EDTECH ---
Repeat lactic drawn and sent to lab
[2024-05-26 02:09] LABS: ~Lactic Acid-LAB USE ONLY 1.4 mmol/L (0.5-2.0)
--- NOTE | 2024-05-26 02:46 | PM.IMHP ---
History of Present Illness Date of Service: 05/26/24 Chief Complaint: sob 86-year-old female with a past medical history of HTN, HLD, hyperparathyroidism status post parathyroidectomy, asthma, GERD, AFib on Eliquis presented to the hospital today with a chief complaint of cough and shortness of breath. Patient reported that for the past 1 week she has been not feeling well. Has been having cough and shortness of breath. Reports occasional sputum production. Denies any sick contacts. Denies any fevers. Two days ago she went to the urgent care and was given prednisone and amoxicillin. But continued to have symptoms and presented to the ER today. Denies any nausea vomiting or diarrhea. Denies any urinary symptoms. Denies any chest pain or palpitations. Denies any lightheadedness or dizziness. Review of all other systems is negative except mentioned above ER course: Per ER team, patient on presentation noted to be short of breath, minimal wheezing, CTA chest showed no evidence of PE but noted to have bilateral lower lobe pneumonia versus atelectasis and also noted GT was. Patient was given ceftriaxone and doxycycline. [facility] Medical History (Updated 05/26/24 @ 02:53 by Neville Reeves MD) Pneumonia Hyperparathyroidism Fatty liver Osteopenia Acid reflux disease Basal cell carcinoma Asthma HLD (hyperlipidemia) HTN (hypertension) Surgical History H/O parathyroidectomy History of removal of both ovaries H/O section Hx of tonsillectomy H/O colonoscopy Social History Household Members: Spouse Housing: Condominium Do you presently have visiting nurse or other home services: No Alcohol intake: never Patient Tobacco Use Status: Never used Tobacco Smoked in Last 30 Days: No Second Hand Smoke Exposure: No Use of substances other than those prescribed or required for medical reasons: No Advance Directives: Yes Advance Directives on File: Yes Advance Directives Date on File: 01/10/24 Do you have a plan to hurt others: No Plan service: No Meds Allergies Allergy/AdvReac Type Severity Reaction Status Date / Time lisinopril Allergy Severe Difficulty Verified 05/25/24 23:09 Breathing codeine Allergy Intermediate Unconscious Verified 05/25/24 23:09 Active Medications: Current Medications Acetaminophen (Acetaminophen 325 Mg Tablet) 650 mg PO Q6H PRN PRN Reason: Pain, Mild 1-3,fever,headache Albuterol/Ipratropium (Albuterol/Iprat 2.5/0.5mg 3 Ml Ampul.Neb) 3 ml INHALE RQ4H WHILE AWAKE PRN PRN Reason: Shortness of Breath Apixaban (Apixaban 5 Mg Tablet) 5 mg PO BID [facility] Benzonatate (Benzonatate 100 Mg Capsule) 100 mg PO TID PRN PRN Reason: Cough Calcium Carbonate (Calcium Carbonate 750 Mg Tab.Chew) 750 mg PO Q4H PRN PRN Reason: Heartburn Ceftriaxone Sodium (Ceftriaxone Sodium 1 Gm Vial) 1 gm IVPUSH Q24H [facility] Doxycycline Monohydrate (Doxycycline Monohydrate 100 Mg Capsule) 100 mg PO Q12H I[facility] Doxycycline Hyclate 100 mg/ (Sodium Chloride) 250 mls @ 166.67 mls/hr IV ONCE ONE Stop: 05/26/24 04:07 Lactated Ringer's (Lr) 1,000 mls @ 50 mls/hr IVCONT .Q20H [facility] Magnesium Hydroxide (Milk Of Magnesia 30 Ml Oral.Susp) 30 ml PO DAILY PRN PRN Reason: Constipation Melatonin (Melatonin 3 Mg Tablet) 6 mg PO BEDTIME PRN PRN Reason: Insomnia Sodium Chloride (0.9 % Sodium Chloride Flush 3 Ml Syringe) 3 ml IVFLUSH QSHIFT [facility] Home Medications ?Medication ?Instructions ?Recorded ?Confirmed ?Last Taken ?Type amlodipine 10 mg tablet 10 mg PO BEDTIME 10/12/22 01/16/24 01/15/24 History montelukast 10 mg tablet 10 mg PO BEDTIME 10/12/22 01/16/24 01/15/24 History omega 4-jzv-xfu-fish oil 1,000 mg 1 cap PO DAILY 10/12/22 01/16/24 01/15/24 History (120 mg-180 mg) capsule (Fish Oil) omeprazole 20 mg capsule,delayed 20 mg PO DAILY@0630 10/12/22 01/16/24 01/15/24 History release albuterol sulfate 90 mcg/actuation 2 puff inhalation Q4H PRN Wheezing 10/01/23 01/16/24 01/16/24 History aerosol inhaler budesonide-formoterol HFA 160 2 puff inhalation BID 10/01/23 01/16/24 01/16/24 History mcg-4.5 mcg/actuation aerosol inhaler (Symbicort) cholecalciferol (vitamin D3) 125 125 mcg PO DAILY 10/01/23 01/16/24 01/15/24 History mcg (5,000 unit) tablet (Vitamin D3) cetirizine 10 mg tablet (Zyrtec) 10 mg PO DAILY 01/10/24 01/16/24 01/15/24 History cyclosporine 0.05 % eye drops in a 1 drp ophthalmic (eye) Q12H PRN 01/10/24 01/16/24 01/15/24 History dropperette Dry Eye(S) Physical Exam Vital Signs and Narrative: Vital Signs: Last Vital Signs Temp 97.8 F 05/26/24 01:50 Pulse 90 05/26/24 01:50 Resp 20 05/26/24 01:50 BP 126/71 05/26/24 01:50 Pulse Ox 92 05/26/24 01:50 O2 Del Method Oxymask 05/26/24 01:50 O2 Flow Rate 6 05/26/24 01:50 Oxygen Flow Rate 2 05/25/24 23:08 BMI result Body Mass Index 32.4 Gen: Appears be in no acute distress. Speaks in full sentences. On supplemental oxygen. HEENT: NCAT, Moist mucosa. Pulmonary: Coarse breath sounds CVS: Normal S1-S2 Abdomen: BS+, Soft, Nontender Extremities: Warm well perfused Neuro: Alert and awake. Results Labs 05/25/24 23:17 05/25/24 23:17 Labs: Laboratory Results - last 24 hr 05/25/24 05/25/24 05/25/24 23:17 23:30 23:31 MCV 86.4 MCH 29.7 MCHC 34.4 RDW 13.0 Plt Count 342 MPV 9.7 Immature Gran % (Auto) 0.8 H Neut % (Auto) 76.7 H Lymph % (Auto) 14.0 L [place] % (Auto) 8.1 Eos % (Auto) 0.1 Baso % (Auto) 0.3 Lymph # (Auto) 1.3 [place] # (Auto) 0.7 Eos # (Auto) 0.0 Baso # (Auto) 0.0 Abs Immat Gran (auto) 0.07 H Absolute Neuts (auto) 6.9 Absolute Nucleated RBC 0.000 Nucleated RBC % (auto) 0.0 D-Dimer High Sensitivty VBG pH 7.44 H VBG pCO2 30 VBG pO2 65 VBG HCO3 21 L VBG O2 Saturation 92.0 VBG Base Excess -1.8 Anion Gap 16 Estim Creat Clear Calc 62.1 Estimated GFR > 60 Random Glucose 110 Lactic Acid 2.3 H* Lactic Acid F/U @ 2Hr Calcium 9.5 Magnesium 2.1 Total Bilirubin 0.3 AST 30 ALT 45 H Alkaline Phosphatase 79 B-Natriuretic Peptide 74 Total Protein 7.6 Albumin 4.5 Lipase 22 Influenza Type A (PCR) NEGATIVE Influenza Type B (PCR) NEGATIVE RSV RNA Qual (PCR) NEGATIVE SARS-CoV-2 RNA (RT-PCR) NEGATIVE 05/25/24 05/26/24 23:41 01:49 MCV MCH MCHC RDW Plt Count MPV Immature Gran % (Auto) Neut % (Auto) Lymph % (Auto) [place] % (Auto) Eos % (Auto) Baso % (Auto) Lymph # (Auto) [place] # (Auto) Eos # (Auto) Baso # (Auto) Abs Immat Gran (auto) Absolute Neuts (auto) Absolute Nucleated RBC Nucleated RBC % (auto) D-Dimer High Sensitivty 150 VBG pH VBG pCO2 VBG pO2 VBG HCO3 VBG O2 Saturation VBG Base Excess Anion Gap Estim Creat Clear Calc Estimated GFR Random Glucose Lactic Acid Lactic Acid F/U @ 2Hr 1.4 Calcium Magnesium Total Bilirubin AST ALT Alkaline Phosphatase B-Natriuretic Peptide Total Protein Albumin Lipase Influenza Type A (PCR) Influenza Type B (PCR) RSV RNA Qual (PCR) SARS-CoV-2 RNA (RT-PCR) Assessment and Plan (1) Pneumonia: Qualifiers: Pneumonia type: due to unspecified organism Laterality: bilateral Lung location: lower lobe of lung Qualified Code(s): J18.9 - Pneumonia, unspecified organism Status: Acute Plan 86-year-old female with a past medical history of HTN, HLD, hyperparathyroidism status post parathyroidectomy, asthma, GERD, AFib on Eliquis presented to the hospital today with a chief complaint of cough and shortness of breath. Admitted for following Bilateral pneumonia: Acute hypoxic respiratory failure: Asthma: Patient on presentation was mildly hypoxic, placed on supplemental oxygen. Not in respiratory distress. CTA chest showed bilateral lower lobe pneumonia versus atelectasis, IgG was. No evidence of PE. Received prednisone for 2 days as outpatient. No significant wheezing noted currently. Plan -continue ceftriaxone, doxycycline -supplemental oxygen p.r.n. -Trending pulse oximetry when ready for discharge -DuoNebs p.r.n. -follow-up cultures HX AFib: Continue home Multaq, Eliquis. HX HTN: Blood pressure on the normal side. Hold home amlodipine for now DVT prophylaxis: Patient on Eliquis Code status: Full code Quality Stroke Does the patient have a stroke diagnosis?: No VTE Prior VTE?: No VTE Risk Level:: Medical - moderate - high VTE Device Contraindication: N/A - Device Ordered VTE Drug Contraindication: Treatment Not Indicated
[2024-05-26] MEDS: Doxycycline Hyclate 100 MG in 0.9 % Sodium Chloride 250 ML 166.67 MG IV (03:06)
[2024-05-26] MEDS: Lactated Ringers 1,000 ML 50 ML IVCONT (03:19)
[2024-05-26] MEDS: Albuterol/Iprat 2.5/0.5MG 3 ML AMPUL.NEB INHALE ×3 (04:03→15:52)
--- NOTE | 2024-05-26 04:24 | PC.NURSE ---
pt ambulated to and from bathroom with portable O2 tank however felt extremely winded and sob when returning back to the bed. RT called to come give pt destini tx. pt back in bed, on 6L via oxymask.
[2024-05-26 04:50] LABS: Hematocrit 38.7 % (37.0-47.0); Hemoglobin 12.8 g/dl (12.0-16.0); Mean Corpuscular HGB Conc 33.1 g/dl (31.0-35.0); Mean Corpuscular Hemoglobin 29.2 pg (27.0-33.0); Mean Corpuscular Volume 88.4 fL (80.0-98.0); Mean Platelet Volume 9.7 fL (9.4-12.3); Platelet Count 321 X10*3/uL (160-400); Red Blood Count 4.38 X10*6/uL (4.20-5.50); Red Cell Distribution Width 13.1 % (11.0-16.0); White Blood Count 11.1 X10*3/uL (4.8-10.8)
--- NOTE | 2024-05-26 06:22 | PM.EVENT ---
Event Note Date of Service: 05/26/24 Event Note: Pt seen and examined, labs, meds, imaging and medication review. 05/26/24 06:07 Temperature 97.9 F Pulse Rate 84 Respiratory Rate 23 H Blood Pressure 143/75 H Pulse Oximetry 94 Oxygen Delivery Method Oxymask Oxygen Flow Rate 6 General: AO X 3, no acute distress Resp: CTA bilateral CVS: S1,S2,RRR GI: +BS, NT, no distention Skin: No rash Neuro: motor grossly intact Psych: appropriate affect 86-year-old female with a past medical history of HTN, HLD, hyperparathyroidism status post parathyroidectomy, asthma, GERD, AFib on Eliquis presented to the hospital today with a chief complaint of cough and shortness of breath. Admitted for management of PNA with acute hypoxic respiratory failure Acute hypoxic respiratory failure d/t mi PNA on CTA Continue Ceftriaxone and Dozy, started 05/26 suplemental O2 with goal of O2 sat 94% follow cultures Mod peristent ashtma with exacerbation bronchodilators by Neb O2 as above Prednsione for 40 mg x 2 more days, has taken for 3 days at home Chronic AFib, rate controlled Continue Multaq and Eliquis. HTN resume home meds DVT prophylaxis: Patient on Eliquis Code status: Full code Time Spent With Patient Time: Total time managing care of this patient today ____ minutes.
[2024-05-26] MEDS: Apixaban 5 MG TABLET PO ×2 (09:41→20:54)
[2024-05-26] MEDS: Doxycycline Monohydrate 100 MG CAPSULE PO ×2 (09:42→20:55)
[2024-05-26] MEDS: Benzonatate 100 MG CAPSULE PO ×2 (09:44→18:33)
--- NOTE | 2024-05-26 10:32 | PHA.MEDREC ---
Addendum entered by Patel Estrella RPh 05/26/24 11:12: Med rec was reviewed by [facility]. Original Note: Pharmacy Consult ? Medication Reconciliation Pharmacy has completed the medication reconciliation.Spoke with patient and she confirmed her medications. Patient confirmed she started taking the amoxicillin-pot clavulanate 875-125 mg on tab twice a day, azithromycin 250mg taking 2 tabs on day one then 1 tab daily there after and Prednisone 10mg tabs taking 4 tabs daily on Tuesday 05/23. She also confirmed her Eliquis 5mg tab twice a day. She confirmed she took her medications last yesterday.
--- NOTE | 2024-05-26 13:20 | MHC.CM.PN ---
IMM 05/26/24, Pt lives with her , she is functionally independent, no home health services. For DME, she has a nebulizer. to transport home at [place]. PCP is confirmed: Rachel Mays. DCP: home self care. CM to follow for DC needs.
[2024-05-26] MEDS: guaiFENesin 200 MG/10 ML 10 ML LIQUID PO ×2 (15:45→20:58)
[2024-05-26] MEDS: Cholecalciferol (Vitamin D3) 25 MCG TABLET 125 MCG PO (15:45)
[2024-05-26] MEDS: 0.9 % Sodium Chloride Flush 3 ML SYRINGE IVFLUSH ×2 (15:46→21:50)
[2024-05-26] MEDS: amLODIPine Besylate 10 MG TABLET PO (20:54)
[2024-05-26] MEDS: cefTRIAXone sodium 1 GM VIAL IVPUSH (20:55)
[2024-05-26] MEDS: Montelukast Sodium 10 MG TABLET PO (20:58)
[2024-05-26] MEDS: Metoprolol Tartrate 5 MG/5 ML VIAL IVPUSH (21:55)
--- NOTE | 2024-05-26 21:59 | PM.EVENT ---
Event Note Date of Service: 05/26/24 Event Note: Rapid response was called as patient was found to be tachycardic. EKG with AFib with RVR. Patient states the last time she took a Lopressor was morning of 05/24. Ordered IV and Po Lopressor with control of HR. Will switch duonebs to xopenex Time Spent With Patient Time: Total time managing care of this patient today ____ minutes.
[2024-05-26] MEDS: Metoprolol Tartrate 12.5 MG HALFTAB PO (22:25)
[2024-05-27] VITALS (9 sets, daily range): BP systolic 104–127; BP diastolic 54–74; PULSE 75–99; RESP 16–20; TEMP 36–37; O2SAT 90–95
--- NOTE | 2024-05-27 06:27 | PC.NURSE ---
05/26/241999: Pt. A and O x4; NSR on tele monitor HR 93 132/62; pt. states her Tax Associate Attorney took her off Multaq and started her on Metoprolol instead. Pt. states she last took her Metoprolol on Sunday morning. Pt. refusing Multaq. Reported these findings to Dr. Hendricks. No changes in meds last evening. At ~ 2140 UTILITY [employer]AG [employer]ER called as pt. HR increased to 130's to 140's, Afib RVR in appearance and then to 170. 12 lead done: A.Flutter 2:1 conduction. Pt. denies CP. BP 148/90. 2154: 5 mg IV Metoprolol given with decrease in HR to 130's. 12 lead repeated and shows Afib. Pt. received 12.5mg PO Metoprolol dose as well. Overnight, pt. back/forth between SR/PAC's and Afib controlled rate, except for when used bedside commode at approx. 0300 HR up to 130's briefly. Pt. in SR 72 as of 0430.
[2024-05-27 07:38] LABS: Hematocrit 38.1 % (37.0-47.0); Hemoglobin 12.8 g/dl (12.0-16.0); Mean Corpuscular HGB Conc 33.6 g/dl (31.0-35.0); Mean Corpuscular Hemoglobin 29.8 pg (27.0-33.0); Mean Corpuscular Volume 88.8 fL (80.0-98.0); Mean Platelet Volume 10.1 fL (9.4-12.3); Platelet Count 325 X10*3/uL (160-400); Red Blood Count 4.29 X10*6/uL (4.20-5.50); Red Cell Distribution Width 13.3 % (11.0-16.0); White Blood Count 9.3 X10*3/uL (4.8-10.8)
[2024-05-27] MEDS: Fluticasone/Vilanterol 200/25 BLST.W.DEV 1 PUFF INHALE (07:39)
[2024-05-27 07:55] LABS: B Type Natriuretic Peptide 108 pg/mL (<100)
[2024-05-27 07:56] LABS: Anion Gap 12 (12-20); Blood Urea Nitrogen 17 mg/dL (9-16); Calcium 9.1 mg/dL (8.4-10.2); Carbon Dioxide 26 mmol/L (22-29); Chloride 107 mmol/L (96-108); Estimated Glomerular Filt Rate > 60; Glucose Random 102 mg/dL (60-115); Potassium 3.4 mmol/L (3.3-5.1); Sodium 142 mmol/L (135-145)
[2024-05-27] MEDS: predniSONE 10 MG TABLET 40 MG PO (08:46)
[2024-05-27] MEDS: Cholecalciferol (Vitamin D3) 25 MCG TABLET 125 MCG PO (08:46)
[2024-05-27] MEDS: 0.9 % Sodium Chloride Flush 3 ML SYRINGE IVFLUSH ×2 (08:46→21:46)
[2024-05-27] MEDS: Doxycycline Monohydrate 100 MG CAPSULE PO ×2 (08:46→21:41)
[2024-05-27] MEDS: Apixaban 5 MG TABLET PO ×2 (08:46→21:41)
[2024-05-27] MEDS: Metoprolol Succinate ER 25 MG TAB.ER.24H PO (08:46)
[2024-05-27] MEDS: Loratadine 10 MG TABLET PO (08:46)
[2024-05-27] MEDS: Omeprazole 20 MG CAPSULE.DR PO (08:46)
[2024-05-27] MEDS: levalbuterol HCL 1.25 MG/3 ML VIAL.NEB INHALE (15:31)
[2024-05-27] MEDS: cefTRIAXone sodium 1 GM VIAL IVPUSH (21:41)
[2024-05-27] MEDS: Montelukast Sodium 10 MG TABLET PO (21:41)
[2024-05-27] MEDS: amLODIPine Besylate 10 MG TABLET PO (21:42)
[2024-05-28] VITALS (9 sets, daily range): BP systolic 117–129; BP diastolic 59–77; PULSE 70–87; RESP 18–20; TEMP 36.6–37.5; O2SAT 90–92
[2024-05-28] MEDS: Omeprazole 20 MG CAPSULE.DR PO (06:22)
[2024-05-28] MEDS: Fluticasone/Vilanterol 200/25 BLST.W.DEV 1 PUFF INHALE (08:00)
[2024-05-28] MEDS: 0.9 % Sodium Chloride Flush 3 ML SYRINGE IVFLUSH ×3 (08:57→22:16)
[2024-05-28] MEDS: Cholecalciferol (Vitamin D3) 25 MCG TABLET 125 MCG PO (08:57)
[2024-05-28] MEDS: Loratadine 10 MG TABLET PO (08:59)
[2024-05-28] MEDS: methylPREDNISolone Sod Succ 40 MG/ML VIAL IVPUSH ×2 (08:59→22:15)
[2024-05-28] MEDS: Doxycycline Monohydrate 100 MG CAPSULE PO ×2 (08:59→22:16)
[2024-05-28] MEDS: Apixaban 5 MG TABLET PO ×2 (08:59→22:16)
[2024-05-28] MEDS: Metoprolol Succinate ER 25 MG TAB.ER.24H PO (09:01)
--- NOTE | 2024-05-28 11:12 | P.PNIM_ITS ---
Subjective Subjective Date of Service: 05/28/24 Interval History: Follow-up for pneumonia, althought not complaining of shortness of breath, oxygen saturation is signficantly down 90 on on 10 liter, Review of Systems some cough, Physical Exam 2 Vital Signs: Vital Signs: Last Vital Signs Temp 98.6 F 05/28/24 10:52 Pulse 70 05/28/24 10:52 Resp 20 05/28/24 10:52 BP 117/69 05/28/24 10:52 Pulse Ox 90 L 05/28/24 10:52 O2 Del Method Nasal Cannula 05/28/24 10:52 O2 Flow Rate 10 05/28/24 10:52 Oxygen Flow Rate 2 05/25/24 23:08 BMI result Body Mass Index 32.1 General: AO X 3, no acute distress, talks in full sentences Resp: no wheezing, normal effort, no accesory muscle use, CVS: S1,S2,RRR GI: +BS, NT, no distention Skin: No rash Neuro: motor grossly intact Psych: appropriate affect Objective Data Active Medications Acetaminophen (Acetaminophen 325 Mg Tablet) 650 mg PO Q6H PRN PRN Reason: Pain, Mild 1-3,fever,headache Amlodipine Besylate (Amlodipine Besylate 10 Mg Tablet) 10 mg PO BEDTIME [facility]; Protocol Last Admin: 05/27/24 21:42 Dose: 10 mg Documented By: VEENA Apixaban (Apixaban 5 Mg Tablet) 5 mg PO BID [facility] Last Admin: 05/28/24 08:59 Dose: 5 mg Documented By: REJI Benzonatate (Benzonatate 100 Mg Capsule) 100 mg PO TID PRN PRN Reason: Cough Last Admin: 05/26/24 18:33 Dose: 100 mg Documented By: RASHARD Calcium Carbonate (Calcium Carbonate 750 Mg Tab.Chew) 750 mg PO Q4H PRN PRN Reason: Heartburn Ceftriaxone Sodium (Ceftriaxone Sodium 1 Gm Vial) 1 gm IVPUSH BEDTIME [facility] Last Admin: 05/27/24 21:41 Dose: 1 gm Documented By: VEENA Doxycycline Monohydrate (Doxycycline Monohydrate 100 Mg Capsule) 100 mg PO BID [facility] Last Admin: 05/28/24 08:59 Dose: 100 mg Documented By: REJI Fluticasone/Vilanterol (Fluticasone/Vilanterol 200/25 Blst.W.Dev) 1 puff INHALE RDAILY [facility] Last Admin: 05/28/24 08:00 Dose: 1 puff Documented By: CHRISTIN Guaifenesin (Guaifenesin 200 Mg/10 Ml 10 Ml Liquid) 10 ml PO Q4H PRN PRN Reason: Cough Last Admin: 05/26/24 20:58 Dose: 10 ml Documented By: VEENA Levalbuterol HCl (Levalbuterol Hcl 1.25 Mg/3 Ml Vial.Neb) 1.25 mg INHALE Q3H PRN PRN Reason: Wheezing Last Admin: 05/27/24 15:31 Dose: 1.25 mg Documented By: CHRISTIN Loratadine (Loratadine 10 Mg Tablet) 10 mg PO DAILY [facility] Last Admin: 05/28/24 08:59 Dose: 10 mg Documented By: REJI Magnesium Hydroxide (Milk Of Magnesia 30 Ml Oral.Susp) 30 ml PO DAILY PRN PRN Reason: Constipation Melatonin (Melatonin 3 Mg Tablet) 6 mg PO BEDTIME PRN PRN Reason: Insomnia Methylprednisolone Sodium Succinate (Methylprednisolone Sod Succ 40 Mg/Ml Vial) 40 mg IVPUSH Q12H [facility] Last Admin: 05/28/24 08:59 Dose: 40 mg Documented By: REJI Metoprolol Succinate (Metoprolol Succinate Er 25 Mg Tab.Er.24h) 25 mg PO DAILY [facility]; Protocol Last Admin: 05/28/24 09:01 Dose: 25 mg Documented By: REJI Montelukast Sodium (Montelukast Sodium 10 Mg Tablet) 10 mg PO BEDTIME [facility] Last Admin: 05/27/24 21:41 Dose: 10 mg Documented By: VEENA Non-Formulary Medication (Cyclosporine) 1 drop EYE-BOTH Q12H PRN PRN Reason: Dry Eye(S) Omeprazole (Omeprazole 20 Mg Capsule.Dr) 20 mg PO DAILY@0630 [facility] Last Admin: 05/28/24 06:22 Dose: 20 mg Documented By: VEENA Sodium Chloride (0.9 % Sodium Chloride Flush 3 Ml Syringe) 3 ml IVFLUSH QSHIFT [facility] Last Admin: 05/28/24 08:57 Dose: 3 ml Documented By: REJI Vitamin D (Cholecalciferol (Vitamin D3) 25 Mcg Tablet) 125 mcg PO DAILY [facility] Last Admin: 05/28/24 08:57 Dose: 125 mcg Documented By: REJI Labs 05/27/24 06:37 05/27/24 06:37 Microbiology Microbiology Results: Microbiology 05/25/24 23:41 Blood Culture - Preliminary Blood - Venous No growth after 48 hours. 05/25/24 23:31 Blood Culture - Preliminary Blood - Venous No growth after 48 hours. Assessment and Plan (1) Pneumonia: Status: Acute Plan 73-year-old female with a past medical history of HTN, HLD, hyperparathyroidism status post parathyroidectomy, asthma, GERD, AFib on Eliquis presented to the hospital today with a chief complaint of cough and shortness of breath. Admitted for management of PNA with acute hypoxic respiratory failure Acute hypoxic respiratory failure d/t mi PNA on CTA, with severe hypoxia Continue Ceftriaxone and Dozy, started 05/26-->change to Zosyn suplemental O2 with goal of O2 sat 94% Get ABG and pulmonology consultation in light of worsening of hypoxia and get echocardiogram cultures negative thus far Mod peristent ashtma with exacerbation bronchodilators by Neb O2 as above Change Prednisone to IV solumedrol given persitent hypoxia pulmonology consultation as above Chronic AFib, rate controlled Patient states she was taking off Multaq last fall continue metorplol HTN continue metoprolol and Amlodipine DVT prophylaxis: Patient on Eliquis Code status: Full code Quality Stroke Does the patient have a stroke diagnosis?: No VTE Prior VTE?: No VTE Risk Level:: Medical - moderate - high VTE Device Contraindication: N/A - Device Ordered VTE Drug Contraindication: Treatment Not Indicated
--- NOTE | 2024-05-28 11:19 | MHC.CM.PN ---
EMR REVIEWED, PT W/PNA, PT WEANED FROM 10L O2 TO 6L, PT REMAINS ON IV AND PO ABX, IV SOLUMEDROL, NO PLAN FOR DC AT THIS TIME, CM WILL CONT TO FOLLOW DC NEEDS.
--- NOTE | 2024-05-28 11:32 | P.PNIM_ITS ---
Subjective Subjective Date of Service: 06/08/24 Interval History: f/u on pneumonia, ynes exacerbation with hypoxia interval history: remains hypoxic but no respriatory distress Overnight went into afib with RVR, later converted back to sinus Physical Exam 2 Vital Signs: Vital Signs: Last Vital Signs Temp 98.6 F 05/28/24 10:52 Pulse 70 05/28/24 10:52 Resp 20 05/28/24 10:52 BP 117/69 05/28/24 10:52 Pulse Ox 90 L 05/28/24 10:52 O2 Del Method Nasal Cannula 05/28/24 10:52 O2 Flow Rate 10 05/28/24 10:52 Oxygen Flow Rate 2 05/25/24 23:08 BMI result Body Mass Index 32.1 General: AO X 3, no acute distress Resp: normal effort, no distress, no wheezing CVS: S1,S2,RRR, no jvd, no leg edema GI: +BS, NT, no distention Skin: No rash Neuro: motor grossly intact Psych: appropriate affect Objective Data Active Medications Acetaminophen (Acetaminophen 325 Mg Tablet) 650 mg PO Q6H PRN PRN Reason: Pain, Mild 1-3,fever,headache Amlodipine Besylate (Amlodipine Besylate 10 Mg Tablet) 10 mg PO BEDTIME [facility]; Protocol Last Admin: 05/27/24 21:42 Dose: 10 mg Documented By: VEENA Apixaban (Apixaban 5 Mg Tablet) 5 mg PO BID [facility] Last Admin: 05/28/24 08:59 Dose: 5 mg Documented By: REJI Benzonatate (Benzonatate 100 Mg Capsule) 100 mg PO TID PRN PRN Reason: Cough Last Admin: 05/26/24 18:33 Dose: 100 mg Documented By: RASHARD Calcium Carbonate (Calcium Carbonate 750 Mg Tab.Chew) 750 mg PO Q4H PRN PRN Reason: Heartburn Doxycycline Monohydrate (Doxycycline Monohydrate 100 Mg Capsule) 100 mg PO BID [facility] Last Admin: 05/28/24 08:59 Dose: 100 mg Documented By: REJI Fluticasone/Vilanterol (Fluticasone/Vilanterol 200/25 Blst.W.Dev) 1 puff INHALE RDAILY [facility] Last Admin: 05/28/24 08:00 Dose: 1 puff Documented By: CHRISTIN Guaifenesin (Guaifenesin 200 Mg/10 Ml 10 Ml Liquid) 10 ml PO Q4H PRN PRN Reason: Cough Last Admin: 05/26/24 20:58 Dose: 10 ml Documented By: VEENA Piperacillin Sod/Tazobactam (Sod 4.5 gm/ Sodium Chloride) 100 mls @ 200 mls/hr IV Q6H [facility] Levalbuterol HCl (Levalbuterol Hcl 1.25 Mg/3 Ml Vial.Neb) 1.25 mg INHALE Q3H PRN PRN Reason: Wheezing Last Admin: 05/27/24 15:31 Dose: 1.25 mg Documented By: CHRISTIN Loratadine (Loratadine 10 Mg Tablet) 10 mg PO DAILY [facility] Last Admin: 05/28/24 08:59 Dose: 10 mg Documented By: REJI Magnesium Hydroxide (Milk Of Magnesia 30 Ml Oral.Susp) 30 ml PO DAILY PRN PRN Reason: Constipation Melatonin (Melatonin 3 Mg Tablet) 6 mg PO BEDTIME PRN PRN Reason: Insomnia Methylprednisolone Sodium Succinate (Methylprednisolone Sod Succ 40 Mg/Ml Vial) 40 mg IVPUSH Q12H [facility] Last Admin: 05/28/24 08:59 Dose: 40 mg Documented By: REJI Metoprolol Succinate (Metoprolol Succinate Er 25 Mg Tab.Er.24h) 25 mg PO DAILY [facility]; Protocol Last Admin: 05/28/24 09:01 Dose: 25 mg Documented By: REJI Montelukast Sodium (Montelukast Sodium 10 Mg Tablet) 10 mg PO BEDTIME [facility] Last Admin: 05/27/24 21:41 Dose: 10 mg Documented By: VEENA Non-Formulary Medication (Cyclosporine) 1 drop EYE-BOTH Q12H PRN PRN Reason: Dry Eye(S) Omeprazole (Omeprazole 20 Mg Capsule.) 20 mg PO DAILY@0630 [facility] Last Admin: 05/28/24 06:22 Dose: 20 mg Documented By: VEENA Sodium Chloride (0.9 % Sodium Chloride Flush 3 Ml Syringe) 3 ml IVFLUSH QSHIFT [facility] Last Admin: 05/28/24 08:57 Dose: 3 ml Documented By: REJI Vitamin D (Cholecalciferol (Vitamin D3) 25 Mcg Tablet) 125 mcg PO DAILY [facility] Last Admin: 05/28/24 08:57 Dose: 125 mcg Documented By: REJI Labs 06/06/24 05:09 06/06/24 05:09 Microbiology Microbiology Results: Microbiology 05/25/24 23:41 Blood Culture - Preliminary Blood - Venous No growth after 48 hours. 05/25/24 23:31 Blood Culture - Preliminary Blood - Venous No growth after 48 hours. Assessment and Plan (1) Pneumonia: Status: Acute Plan 73-year-old female with a past medical history of HTN, HLD, hyperparathyroidism status post parathyroidectomy, asthma, GERD, AFib on Eliquis presented to the hospital today with a chief complaint of cough and shortness of breath. Admitted for management of PNA with acute hypoxic respiratory failure Acute hypoxic respiratory failure d/t mi PNA on CTA, with severe hypoxia Continue Ceftriaxone and Dozy, started 05/26-->change to Zosyn suplemental O2 with goal of O2 sat 94% Get ABG and pulmonology consultation in light of worsening of hypoxia and get echocardiogram cultures negative thus far Mod peristent ashtma with exacerbation bronchodilators by Neb O2 as above Change Prednisone to IV solumedrol given persitent hypoxia pulmonology consultation as above Chronic AFib, rate controlled Patient states she was taking off Multaq last fall continue metorplol HTN continue metoprolol and Amlodipine DVT prophylaxis: Patient on Eliquis Code status: Full code Quality Stroke Does the patient have a stroke diagnosis?: No VTE Prior VTE?: No VTE Risk Level:: Medical - moderate - high VTE Device Contraindication: N/A - Device Ordered VTE Drug Contraindication: Treatment Not Indicated
--- NOTE | 2024-05-28 13:00 | CA_ITS ---
Transthoracic Echocardiogram Patient (Last, First, Middle): Deanne Lindquist S Gender: Female Date of : 1950 Age: 73 Procedure Date: 05/28/2024 Procedure Type: Transthoracic Echocardiogram Location: [facility] [place] Height: 157.48 cm Weight: 79.38 kg BSA: 1.81 m2 Heart Rate: bpm BP: 117 / 69 mmHg Wood Floor Layer: Referring MD: Yovany Pierre MD Symptoms: Dyspnea on exertion, rule out chf Study Quality: Adequate with Contrast ECG Rhythm: Sinus Conclusions: - Normal left ventricular size and systolic function. There is mildly increased left ventricular wall thickness. The visually estimated ejection fraction is between 60-65%. There is no evidence of regional wall motion abnormalities. Diastolic function is normal for age. - Normal right ventricular cavity size and systolic function. Findings Procedure Information Contrast agent, definity, is being given per protocol without apparent complications. Left Ventricle Normal left ventricular size and systolic function. There is mildly increased left ventricular wall thickness. The visually estimated ejection fraction is between 60-65%. There is no evidence of regional wall motion abnormalities. Diastolic function is normal for age. Right Ventricle Normal right ventricular cavity size and systolic function. Atria The left atrium is normal in size. Aortic Valve Normal aortic valve structure and function. There is no aortic valve stenosis. There is no aortic valve regurgitation. Mitral Valve The mitral valve appears normal. There is no mitral valve regurgitation. There is no mitral valve stenosis. Pulmonic Valve The pulmonic valve is likely normal. Tricuspid Valve Normal tricuspid valve structure. There is no tricuspid valve regurgitation. Normal right atrial pressure. There is no evidence of pulmonary hypertension. Great Vessels The visualized portions of the pulmonary artery and branches are normal. Venous The inferior vena cava is normal in size and collapses greater than 50% with inspiration. Pericardium/Pleural There is no evidence of pericardial effusion. Measurements 2D Linear Measurements IVSd: 1.33 0.6-0.9/0.6-1.0 cm LVIDd: 3.69 3.9-5.3/4.2-5.9 cm LVIDd Index: 2.04 2.4-3.2/2.2-3.1 cm/m2 LVIDs: 2.47 2.0-3.6 cm LVPWd: 1.27 0.7-1.1 cm Ao Root: 3.00 2.1-3.5 cm LA Diam: 5.30 2.7-3.8/3.0-4.0 cm LAIDs Index: 2.93 1.5-2.3 cm/m2 LV Mass: 206.56 67-162/88-224 g LV Mass Index: 114.12 43-95/49-115 g/m2 LVOT Diam: 2.10 3.0+(-)1.3 cm Mitral Valve MV Pk E: 0.68 MV PK A: 1.06 MV Decel Time: 199.00 E/A: 0.60 E'Lateral: 8.59 E'Medial: 6.31 E/E' Med: 10.70 E/E' Lat: 7.90 PHT: 58.00 MVA PHT: 3.79 Decel Cambria: 3.40 Aortic Valve AoV Pk Thanh: 1.39 AoV Mn Thanh: 0.97 AoV VTI: 0.32 AoV Pk Grad: 8.00 Aov Mn Grad: 4.00 NAY Cont.VTI: 2.94 LVOT LVOT Pk Thanh: 1.15 LVOT Mn Thanh: 0.80 LVOT VTI: 0.27 LVOT Pk Grad: 5.00 LVOT Mn Grad: 3.00 LVOT Diam: 2.10 LVOT Area: 3.46 Diastolic Function MV Pk E: 0.68 MV Pk A: 1.06 E/A: 0.60 E'Medial: 6.31 E/E' Med: 10.70 E' Laterial: 8.59 E/E' Lat: 7.90 Right Ventricle TAPSE (mm): 26.00 TVS' Thanh: 14.00 Tricuspid Valve TR Pk Thanh: 2.22 TR Pk Grad: 20.00 RA Press: 3.00 RVSP: 23.00 Great Vessels Aorta Ao Root-2D: 3.00 2.0-3.7 cm Ao Asc: 3.00 2.1-3.4 cm Pulmonary Valve PV Pk Thanh: 1.00 Peak PV Grad: 4.00 Updated in Other Vendor System with Status of Final Meek Morales MD electronically signed on 05/28/2024 6:41:17 PM with status of Final
[2024-05-28] MEDS: Piperacillin Sodium/Tazobactam 4.5 GM in 0.9 % Sodium Chloride 100 ML IV ×2 (13:05→22:54)
[2024-05-28 13:47] LABS: ABG pCO2 35 mmHg (32-45); ABG pH 7.44 (7.35-7.45)
[2024-05-28 13:48] LABS: ABG Base Excess 1.2 mmol/L; ABG HCO3 24 mmol/L (22-26); ABG pO2 74 mmHg (83-108)
--- NOTE | 2024-05-28 14:30 | P.CONPL_ITS ---
History of Present Illness History of Present Illness Consult date: 05/28/24 Chief complaint: Hypoxia Narrative: 73-year-old lady with underlying history of asthma and environmental allergies, AFib on anticoagulation, hyperparathyroidism status post parathyroidectomy, followed by store keeper Dr. Stanley in [place], admitted on 05/26/2024 with dyspnea and hypoxia. Her CT angio chest demonstrated no evidence of pulmonary emboli but what appears to be chronic bibasilar atelectasis with possible aspiration component. Patient was started empiric antibiotics with slow improvement. Review of Systems 2 Constitutional: Constitutional: Denies daytime sleepiness, Denies excessive sweating, Denies fatigue, Denies fever(s), Denies lethargy, Denies malaise, Denies night sweats, Denies snoring and Denies weight loss Eyes: Eyes: Denies blurry vision and Denies itchy eyes ENT: Denies nasal congestion, Denies post nasal drip, Denies sinus pain, Denies sinus pressure and Denies other ( Thrush) Cardiovascular: Cardiovascular: Denies chest pain, Denies pedal edema, Denies dyspnea, Reports dyspnea on exertion, Denies orthopnea and Denies paroxysmal nocturnal dyspnea Respiratory: Respiratory: Reports cough, Denies hemoptysis, Denies excessive phlegm production, Denies dyspnea, Reports dyspnea on exertion, Denies snoring and Denies wheezing Gastrointestinal: Gastrointestinal: Denies abdominal pain and Denies heartburn Musculoskeletal: Musculoskeletal: Denies myalgias, Denies arthralgias and Denies joint swelling Integumentary/Breasts: Skin/Breast: Denies rash Neurologic: Denies memory loss and Denies seizure-like activity Psychiatric: Psychiatric: Denies abnormal sleep pattern, Denies anxiety and Denies memory loss Endocrine: Endocrine: Denies excessive sweating, Denies fatigue and Denies heat intolerance Hematologic/Lymphatic: Hematologic/Lymphatic: Denies easy bruising Allergic/Immunologic: Allergic/Immunologic: Denies itchy eyes, Denies seasonal rhinorrhea and Denies wheezing PMFSH Past Medical History Medical History (Updated 05/28/24 @ 14:33 by Kolby Chand MD) Pneumonia Hyperparathyroidism Fatty liver Osteopenia Acid reflux disease Basal cell carcinoma Asthma HLD (hyperlipidemia) HTN (hypertension) Surgical History Surgical History H/O parathyroidectomy History of removal of both ovaries H/O section Hx of tonsillectomy H/O colonoscopy Social History Social History Household Members: Significant Other Housing: Condominium Do you presently have visiting nurse or other home services: No Alcohol intake: never Patient Tobacco Use Status: Never used Tobacco Second Hand Smoke Exposure: No Advance Directives Date on File: 01/10/24 service: No Meds Allergies Allergy/AdvReac Type Severity Reaction Status Date / Time lisinopril Allergy Severe Difficulty Verified 05/25/24 23:09 Breathing codeine Allergy Intermediate Unconscious Verified 05/25/24 23:09 Active Medications: Current Medications Acetaminophen (Acetaminophen 325 Mg Tablet) 650 mg PO Q6H PRN PRN Reason: Pain, Mild 1-3,fever,headache Amlodipine Besylate (Amlodipine Besylate 10 Mg Tablet) 10 mg PO BEDTIME [facility]; Protocol Last Admin: 05/27/24 21:42 Dose: 10 mg Apixaban (Apixaban 5 Mg Tablet) 5 mg PO BID [facility] Last Admin: 05/28/24 08:59 Dose: 5 mg Benzonatate (Benzonatate 100 Mg Capsule) 100 mg PO TID PRN PRN Reason: Cough Last Admin: 05/26/24 18:33 Dose: 100 mg Calcium Carbonate (Calcium Carbonate 750 Mg Tab.Chew) 750 mg PO Q4H PRN PRN Reason: Heartburn Doxycycline Monohydrate (Doxycycline Monohydrate 100 Mg Capsule) 100 mg PO BID [facility] Last Admin: 05/28/24 08:59 Dose: 100 mg Fluticasone/Vilanterol (Fluticasone/Vilanterol 200/25 Blst.W.Dev) 1 puff INHALE RDAILY [facility] Last Admin: 05/28/24 08:00 Dose: 1 puff Guaifenesin (Guaifenesin 200 Mg/10 Ml 10 Ml Liquid) 10 ml PO Q4H PRN PRN Reason: Cough Last Admin: 05/26/24 20:58 Dose: 10 ml Piperacillin Sod/Tazobactam (Sod 4.5 gm/ Sodium Chloride) 100 mls @ 200 mls/hr IV Q6H [facility] Levalbuterol HCl (Levalbuterol Hcl 1.25 Mg/3 Ml Vial.Neb) 1.25 mg INHALE Q3H PRN PRN Reason: Wheezing Last Admin: 05/27/24 15:31 Dose: 1.25 mg Loratadine (Loratadine 10 Mg Tablet) 10 mg PO DAILY [facility] Last Admin: 05/28/24 08:59 Dose: 10 mg Magnesium Hydroxide (Milk Of Magnesia 30 Ml Oral.Susp) 30 ml PO DAILY PRN PRN Reason: Constipation Melatonin (Melatonin 3 Mg Tablet) 6 mg PO BEDTIME PRN PRN Reason: Insomnia Methylprednisolone Sodium Succinate (Methylprednisolone Sod Succ 40 Mg/Ml Vial) 40 mg IVPUSH Q12H [facility] Last Admin: 05/28/24 08:59 Dose: 40 mg Metoprolol Succinate (Metoprolol Succinate Er 25 Mg Tab.Er.24h) 25 mg PO DAILY [facility]; Protocol Last Admin: 05/28/24 09:01 Dose: 25 mg Montelukast Sodium (Montelukast Sodium 10 Mg Tablet) 10 mg PO BEDTIME [facility] Last Admin: 05/27/24 21:41 Dose: 10 mg Non-Formulary Medication (Cyclosporine) 1 drop EYE-BOTH Q12H PRN PRN Reason: Dry Eye(S) Omeprazole (Omeprazole 20 Mg Capsule.Dr) 20 mg PO DAILY@0630 [facility] Last Admin: 05/28/24 06:22 Dose: 20 mg Sodium Chloride (0.9 % Sodium Chloride Flush 3 Ml Syringe) 3 ml IVFLUSH QSHIFT [facility] Last Admin: 05/28/24 08:57 Dose: 3 ml Vitamin D (Cholecalciferol (Vitamin D3) 25 Mcg Tablet) 125 mcg PO DAILY [facility] Last Admin: 05/28/24 08:57 Dose: 125 mcg Home Medications ?Medication ?Instructions ?Recorded ?Confirmed ?Last Taken ?Type amlodipine 10 mg tablet 10 mg PO BEDTIME 10/12/22 05/26/24 05/25/24 History montelukast 10 mg tablet 10 mg PO BEDTIME 10/12/22 05/26/24 05/25/24 History omega 1-kal-yhe-fish oil 1,000 mg 1 cap PO DAILY 10/12/22 05/26/24 05/25/24 History (120 mg-180 mg) capsule (Fish Oil) omeprazole 20 mg capsule,delayed 20 mg PO DAILY@0630 10/12/22 05/26/24 05/25/24 History release albuterol sulfate 90 mcg/actuation 2 puff inhalation Q4H PRN Wheezing 10/01/23 05/26/24 01/16/24 History aerosol inhaler budesonide-formoterol HFA 160 2 puff inhalation BID 10/01/23 05/26/24 05/25/24 History mcg-4.5 mcg/actuation aerosol inhaler (Symbicort) cholecalciferol (vitamin D3) 125 125 mcg PO DAILY 10/01/23 05/26/24 05/25/24 History mcg (5,000 unit) tablet (Vitamin D3) cetirizine 10 mg tablet (Zyrtec) 10 mg PO DAILY 01/10/24 05/26/24 05/25/24 History cyclosporine 0.05 % eye drops in a 1 drp ophthalmic (eye) Q12H PRN 01/10/24 05/26/24 05/25/24 History dropperette Dry Eye(S) amoxicillin 875 mg-potassium 1 tab PO BID 05/26/24 05/26/24 05/25/24 History clavulanate 125 mg tablet azithromycin 250 mg tablet 250 mg PO DAILY 05/26/24 05/26/24 05/25/24 History coenzyme Q10 100 mg capsule 100 mg PO DAILY 05/26/24 05/26/24 05/25/24 History (CoQ-10) metoprolol succinate 25 mg 25 mg PO DAILY 05/26/24 05/26/24 05/25/24 History tablet,extended release 24 hr prednisone 10 mg tablet 40 mg PO DAILY 05/26/24 05/26/24 05/25/24 History turmeric 400 mg capsule 400 mg PO DAILY 05/26/24 05/26/24 05/25/24 History Physical Exam 2 Vital Signs: Vital Signs: Last Vital Signs Temp 98.6 F 05/28/24 10:52 Pulse 70 05/28/24 10:52 Resp 20 05/28/24 10:52 BP 117/69 05/28/24 10:52 Pulse Ox 90 L 05/28/24 10:52 O2 Del Method Nasal Cannula 05/28/24 10:52 O2 Flow Rate 10 05/28/24 10:52 Oxygen Flow Rate 2 05/25/24 23:08 BMI result Body Mass Index 32.1 Const: General: no acute distress and alert Nutritional Appearance: not obese Orientation/consciousness: Other orientation findings ( oriented) HEENT: Head: Yes atraumatic Eyes: General: appearance normal, both eyes and all related structures S clerae: sclerae normal EOM: EOMs intact bilaterally Neck: Neck: Yes supple Lymphatic: no lymphadenopathy noted Resp: Effort & Inspection: normal respiratory effort and no use of accessory muscles Auscultation: clear to auscultation bilaterally Cardio: Rate: regular rate Rhythm: regular rhythm Heart sounds: no gallops, no murmurs and no rubs Skin: General skin exam: other ( warm) Extrem: General: No clubbing, No cyanosis and No edema Results Laboratory Findings 05/27/24 06:37 05/27/24 06:37 Abnormal lab findings: Abnormal Labs 05/25/24 05/25/24 05/25/24 23:17 23:30 23:31 WBC Immature Gran % (Auto) 0.8 H Neut % (Auto) 76.7 H Lymph % (Auto) 14.0 L Abs Immat Gran (auto) 0.07 H ABG pO2 at Pt Temp VBG pH 7.44 H VBG HCO3 21 L Carbon Dioxide 20 L BUN 17 H Lactic Acid 2.3 H* ALT 45 H B-Natriuretic Peptide 05/26/24 05/27/24 05/28/24 04:34 06:37 11:53 WBC 11.1 H Immature Gran % (Auto) Neut % (Auto) Lymph % (Auto) Abs Immat Gran (auto) ABG pO2 at Pt Temp 74 L VBG pH VBG HCO3 Carbon Dioxide BUN 17 H Lactic Acid ALT B-Natriuretic Peptide 108 H Microbiology: Microbiology 05/25/24 23:41 Blood - Venous Blood Culture - Preliminary No growth after 48 hours. 05/25/24 23:31 Blood - Venous Blood Culture - Preliminary No growth after 48 hours. Assessment and Plan (1) Hypoxia: Status: Acute (2) Bilateral atelectasis: Status: Acute Plan Impression: 73-year-old lady with underlying asthma admitted with hypoxia and nonproductive cough. Treated with empiric antibiotics for possible back basilar pneumonia. CT angio chest demonstrates no evidence of pulmonary emboli. Bibasilar atelectasis appears to be more likely than chavez pneumonia, may have aspiration component. Recommendation: Agree with empiric antibiotics, would consider narrowing down to Unasyn for coverage of possible pulmonary aspiration. Continue to titrate off supplemental oxygen as tolerated. Would consider also additional diuresis. Procedures Date of Service Date of Service: 05/28/24
--- NOTE | 2024-05-28 16:55 | PC.NURSE ---
oxygen titrated to 8l will follow sat
[2024-05-28] MEDS: amLODIPine Besylate 10 MG TABLET PO (22:16)
[2024-05-28] MEDS: Montelukast Sodium 10 MG TABLET PO (22:16)
[2024-05-29] VITALS (10 sets, daily range): BP systolic 127–166; BP diastolic 58–87; PULSE 80–90; RESP 18–20; TEMP 36.2–36.7; O2SAT 88–93
[2024-05-29] MEDS: guaiFENesin 200 MG/10 ML 10 ML LIQUID PO ×3 (00:10→17:02)
[2024-05-29] MEDS: Piperacillin Sodium/Tazobactam 4.5 GM in 0.9 % Sodium Chloride 100 ML IV ×4 (05:51→23:15)
[2024-05-29] MEDS: Omeprazole 20 MG CAPSULE.DR PO (05:51)
[2024-05-29] MEDS: Cholecalciferol (Vitamin D3) 25 MCG TABLET 125 MCG PO (07:45)
[2024-05-29] MEDS: Metoprolol Succinate ER 25 MG TAB.ER.24H PO (07:45)
[2024-05-29] MEDS: Doxycycline Monohydrate 100 MG CAPSULE PO ×2 (07:46→20:44)
[2024-05-29] MEDS: methylPREDNISolone Sod Succ 40 MG/ML VIAL IVPUSH ×2 (07:46→20:44)
[2024-05-29] MEDS: Loratadine 10 MG TABLET PO (07:46)
[2024-05-29] MEDS: Benzonatate 100 MG CAPSULE PO ×2 (07:46→17:02)
[2024-05-29] MEDS: Apixaban 5 MG TABLET PO ×2 (07:46→20:44)
[2024-05-29] MEDS: 0.9 % Sodium Chloride Flush 3 ML SYRINGE IVFLUSH ×3 (07:46→23:15)
[2024-05-29] MEDS: Fluticasone/Vilanterol 200/25 BLST.W.DEV 1 PUFF INHALE (08:47)
--- NOTE | 2024-05-29 11:51 | HO.PM.IMPN ---
Subjective Subjective Date of Service: 05/29/24 Interval History: Seen and examined this morning Follow-up for pneumonia, respiratory failure Continues to feel short of breath with movement Review of Systems Review of Systems: Yes all other systems are reviewed and are negative Constitutional Constitutional: Denies chills and Denies fever(s) ENT Ears, Nose, Mouth, and Throat: Denies dizziness Cardiovascular Cardiovascular: Denies chest pain, Denies palpitations and Reports dyspnea on exertion Respiratory Respiratory: Reports dyspnea on exertion Gastrointestinal Gastrointestinal: Denies abdominal pain, Denies nausea and Denies vomiting Neurologic Neurologic: Denies dizziness Endocrine Endocrine: Denies palpitations Physical Exam Vital Signs: Vital Signs: Last Vital Signs Temp 98.1 F 05/29/24 11:01 Pulse 85 05/29/24 11:01 Resp 20 05/29/24 11:01 BP 138/66 05/29/24 11:01 Pulse Ox 90 L 05/29/24 11:01 O2 Del Method Large Bore Nasal Cannula 05/29/24 11:01 O2 Flow Rate 11 05/29/24 07:34 Oxygen Flow Rate 2 05/25/24 23:08 BMI result Body Mass Index 32.1 Const: General: cooperative, comfortable, alert and awake Orientation/consciousness: patient oriented x3 Resp: Effort & Inspection: normal respiratory effort, able to speak in complete sentences, no respiratory distress and no use of accessory muscles Cardio: Rate: regular rate GI: Inspection: No distended Palpation (GI): Soft to palpation and nontender Neuro: General: patient oriented x3, moves all extremities and CN's II-XI intact bilaterally Objective Data Active Medications Acetaminophen (Acetaminophen 325 Mg Tablet) 650 mg PO Q6H PRN PRN Reason: Pain, Mild 1-3,fever,headache Amlodipine Besylate (Amlodipine Besylate 10 Mg Tablet) 10 mg PO BEDTIME [facility]; Protocol Last Admin: 05/28/24 22:16 Dose: 10 mg Documented By: JOHNNY Apixaban (Apixaban 5 Mg Tablet) 5 mg PO BID [facility] Last Admin: 05/29/24 07:46 Dose: 5 mg Documented By: RASHARD Benzonatate (Benzonatate 100 Mg Capsule) 100 mg PO TID PRN PRN Reason: Cough Last Admin: 05/29/24 07:46 Dose: 100 mg Documented By: RASHARD Calcium Carbonate (Calcium Carbonate 750 Mg Tab.Chew) 750 mg PO Q4H PRN PRN Reason: Heartburn Doxycycline Monohydrate (Doxycycline Monohydrate 100 Mg Capsule) 100 mg PO BID [facility] Last Admin: 05/29/24 07:46 Dose: 100 mg Documented By: RASHARD Fluticasone/Vilanterol (Fluticasone/Vilanterol 200/25 Blst.W.Dev) 1 puff INHALE RDAILY [facility] Last Admin: 05/29/24 08:47 Dose: 1 puff Documented By: JEMAL Guaifenesin (Guaifenesin 200 Mg/10 Ml 10 Ml Liquid) 10 ml PO Q4H PRN PRN Reason: Cough Last Admin: 05/29/24 07:46 Dose: 10 ml Documented By: RASHARD Piperacillin Sod/Tazobactam (Sod 4.5 gm/ Sodium Chloride) 100 mls @ 200 mls/hr IV Q6H [facility] Last Infusion: 05/29/24 11:43 Dose: Infused Documented By: RASHARD Levalbuterol HCl (Levalbuterol Hcl 1.25 Mg/3 Ml Vial.Neb) 1.25 mg INHALE Q3H PRN PRN Reason: Wheezing Last Admin: 05/27/24 15:31 Dose: 1.25 mg Documented By: CHRISTIN Loratadine (Loratadine 10 Mg Tablet) 10 mg PO DAILY [facility] Last Admin: 05/29/24 07:46 Dose: 10 mg Documented By: RASHARD Magnesium Hydroxide (Milk Of Magnesia 30 Ml Oral.Susp) 30 ml PO DAILY PRN PRN Reason: Constipation Melatonin (Melatonin 3 Mg Tablet) 6 mg PO BEDTIME PRN PRN Reason: Insomnia Methylprednisolone Sodium Succinate (Methylprednisolone Sod Succ 40 Mg/Ml Vial) 40 mg IVPUSH Q12H [facility] Last Admin: 05/29/24 07:46 Dose: 40 mg Documented By: RASHARD Metoprolol Succinate (Metoprolol Succinate Er 25 Mg Tab.Er.24h) 25 mg PO DAILY [facility]; Protocol Last Admin: 05/29/24 07:45 Dose: 25 mg Documented By: RASHARD Montelukast Sodium (Montelukast Sodium 10 Mg Tablet) 10 mg PO BEDTIME [facility] Last Admin: 05/28/24 22:16 Dose: 10 mg Documented By: JOHNNY Non-Formulary Medication (Cyclosporine) 1 drop EYE-BOTH Q12H PRN PRN Reason: Dry Eye(S) Omeprazole (Omeprazole 20 Mg Gurinder.) 20 mg PO DAILY@0630 [facility] Last Admin: 05/29/24 05:51 Dose: 20 mg Documented By: JOHNNY Sodium Chloride (0.9 % Sodium Chloride Flush 3 Ml Syringe) 3 ml IVFLUSH QSHIFT [facility] Last Admin: 05/29/24 07:46 Dose: 3 ml Documented By: RASHARD Vitamin D (Cholecalciferol (Vitamin D3) 25 Mcg Tablet) 125 mcg PO DAILY [facility] Last Admin: 05/29/24 07:45 Dose: 125 mcg Documented By: RASHARD Labs 05/27/24 06:37 05/27/24 06:37 Labs: Laboratory Results - last 24 hr 05/28/24 11:53 O2 Saturation 95.0 ABG pH at Pt Temp 7.44 ABG pCO2 at Pt Temp 35 ABG pO2 at Pt Temp 74 L ABG HCO3 24 ABG Base Excess (Actual) 1.2 Assessment and Plan (1) Bilateral atelectasis: Status: Acute (2) Hypoxia: Status: Acute (3) Pneumonia: Status: Acute Plan This is a 73-year-old female with a past medical history of HTN, HLD, hyperparathyroidism status post parathyroidectomy, asthma, GERD, AFib on Eliquis who presented to the hospital with a chief complaint of cough and shortness of breath. Admitted for management of PNA with acute hypoxic respiratory failure Acute hypoxic respiratory failure d/t b/l PNA, atelectasis and possible aspiration CTA negative for PE Remains hypoxic Echocardiogram normal, BNP low Continue Ceftriaxone and Doxy, started 05/26--> ceftriaxone changed to Zosyn 05/28 Continue steroids supplemental O2 with goal of O2 sat 94% Seen by pulmonology, recommend to consider diuresis Speech evaluation pending; had possible aspiration event this morning Bibasilar atelectasis-incentive spirometry Mod persistent asthma with acute exacerbation Imaging showing underlying emphysematous changes as well bronchodilators by Neb O2 as above Continue IV solumedrol given persistent hypoxia Chronic AFib, rate controlled Patient states she was taking off Multaq last fall continue metoprolol Continue Eliquis HTN continue metoprolol and Amlodipine DVT prophylaxis: Eliquis Code status: Full code Patient requires ongoing inpatient stay for management of respiratory failure requiring of supplemental oxygen and multiple IV medications as well as specialist evaluation Quality Stroke Does the patient have a stroke diagnosis?: No VTE Prior VTE?: No VTE Risk Level:: Medical - moderate - high VTE Device Contraindication: N/A - Device Ordered VTE Drug Contraindication: Treatment Not Indicated
[2024-05-29] MEDS: levalbuterol HCL 1.25 MG/3 ML VIAL.NEB INHALE ×2 (16:13→20:28)
--- NOTE | 2024-05-29 17:05 | MHC.SL.SWA ---
Speech Pathologist Impression: Risk of Aspiration Due to: History of Pneumonia Dysphasia Diet Status: Liquid Consistency and Strategies for Safe Swallow: Liquid Intake Recommendation: Thin Liquid Intake Strategies: Small Sips Solid Food Consistency: Dietary Recommendations: Regular Additional Modifications to Solid Foods: Oral Medication Intake: Whole with Liquid Please contact the pharmacy regarding appropriate crushable or liquid drug formulations that are available whenever modified delivery is recommended. Compensatory Strategies and Precautions to be Taken for Safe Swallow: Sitting Upright (90 deg) Liquids from Cup Liquids from Straw Small Bites and Sips Alternate Liquids/Solids Supervision While Eating and Drinking for Safe Swallow: None Needed Foods to Avoid: Swallowing Recommended Treatments: Recommendation for Speech: NA:Typical Evaluation Comment: Patient presented with all aspects of oral motor function and swallow WFL. Recommend continue on baseline and least restrictive diet of Regular with Thin liquids, pills whole with liquid. No further HR ADMINISTRATIVE ASSISTANT service needed at this time, will d/c. , RD notified by secure text, RN inperson. Frequency/Duration: Date Range for Service Req: Timeline to reassess: Configuration Consultant Clinican/Clinical Fellow: No Supervisory Statement: I have reviewed and agree with the student/clinical fellow's documentation: N/A Speech Language Pathologist: Liz Pearce M.A., CCC-HR ADMINISTRATIVE ASSISTANT
[2024-05-29] MEDS: Montelukast Sodium 10 MG TABLET PO (20:44)
[2024-05-29] MEDS: amLODIPine Besylate 10 MG TABLET PO (20:44)
[2024-05-29] MEDS: CYCLOSPORINE 0.05% 1 EACH EYE-BOTH (20:44)
[2024-05-30] VITALS (17 sets, daily range): BP systolic 110–132; BP diastolic 55–63; PULSE 69–92; RESP 17–20; TEMP 36.3–36.9; O2SAT 78–96
[2024-05-30] MEDS: Piperacillin Sodium/Tazobactam 4.5 GM in 0.9 % Sodium Chloride 100 ML IV ×4 (05:54→22:08)
[2024-05-30] MEDS: Omeprazole 20 MG CAPSULE.DR PO (05:54)
[2024-05-30] MEDS: Apixaban 5 MG TABLET PO ×2 (08:03→22:08)
[2024-05-30] MEDS: CYCLOSPORINE 0.05% 1 EACH EYE-BOTH ×2 (08:03→22:07)
[2024-05-30] MEDS: Metoprolol Succinate ER 25 MG TAB.ER.24H PO (08:03)
[2024-05-30] MEDS: Doxycycline Monohydrate 100 MG CAPSULE PO ×2 (08:03→22:08)
[2024-05-30] MEDS: Loratadine 10 MG TABLET PO (08:03)
[2024-05-30] MEDS: Cholecalciferol (Vitamin D3) 25 MCG TABLET 125 MCG PO (08:03)
[2024-05-30] MEDS: methylPREDNISolone Sod Succ 40 MG/ML VIAL IVPUSH ×2 (08:03→17:41)
[2024-05-30] MEDS: 0.9 % Sodium Chloride Flush 3 ML SYRINGE IVFLUSH ×2 (08:04→16:13)
[2024-05-30] MEDS: Benzonatate 100 MG CAPSULE PO ×3 (08:05→22:08)
[2024-05-30] MEDS: guaiFENesin 200 MG/10 ML 10 ML LIQUID PO ×3 (08:05→22:08)
[2024-05-30] MEDS: levalbuterol HCL 1.25 MG/3 ML VIAL.NEB INHALE ×3 (08:08→19:42)
[2024-05-30] MEDS: Fluticasone/Vilanterol 200/25 BLST.W.DEV 1 PUFF INHALE (08:08)
[2024-05-30] MEDS: Throat Lozenge, Medicated LOZENGE 1 LOZENGE MUCOUS MEM ×4 (10:33→22:08)
--- NOTE | 2024-05-30 11:18 | MHC.CM.PN ---
Per rounds, pt. is still requiring high flow supplemental O2, she is slowly improving, anticipate she will need continued acute care for a few more days. CM to follow for DC needs.
--- NOTE | 2024-05-30 12:15 | P.PNIM_ITS ---
Subjective Subjective Date of Service: 05/30/24 Interval History: Seen and examined this morning Follow-up for respiratory failure Continues with a significant cough, desaturates with the eating/movement No orthopnea, PND Review of Systems Review of Systems: Yes all other systems are reviewed and are negative Constitutional Constitutional: Denies chills and Denies fever(s) Cardiovascular Cardiovascular: Denies chest pain and Denies palpitations Endocrine Endocrine: Denies palpitations Physical Exam 2 Vital Signs: Vital Signs: Last Vital Signs Temp 98.1 F 05/30/24 11:40 Pulse 85 05/30/24 11:40 Resp 20 05/30/24 11:40 BP 121/57 L 05/30/24 11:40 Pulse Ox 96 05/30/24 11:40 O2 Del Method Oxymask 05/30/24 11:40 O2 Flow Rate 6 05/30/24 11:40 Oxygen Flow Rate 2 05/25/24 23:08 BMI result Body Mass Index 32.1 Const: General: cooperative, comfortable, alert and awake O rientation/consciousness: patient oriented x3 Resp: Other: dim bases, no wheeze Effort & Inspection: normal respiratory effort, able to speak in complete sentences, no respiratory distress and no use of accessory muscles Cardio: Rate: regular rate GI: Inspection: No distended Palpation (GI): Soft to palpation and nontender Neuro: General: patient oriented x3, moves all extremities and CN's II-XI intact bilaterally Extrem: General: Yes no pedal edema Objective Data Active Medications Acetaminophen (Acetaminophen 325 Mg Tablet) 650 mg PO Q6H PRN PRN Reason: Pain, Mild 1-3,fever,headache Amlodipine Besylate (Amlodipine Besylate 10 Mg Tablet) 10 mg PO BEDTIME IONA; Protocol Last Admin: 05/29/24 20:44 Dose: 10 mg Documented By: JOHNNY Apixaban (Apixaban 5 Mg Tablet) 5 mg PO BID IONA Last Admin: 05/30/24 08:03 Dose: 5 mg Documented By: RASHARD Benzocaine (Throat Lozenge, Medicated Lozenge) 1 lozenge MUCOUS MEM Q2H PRN PRN Reason: Sore Throat Last Admin: 05/30/24 10:33 Dose: 1 lozenge Documented By: RASHARD Benzonatate (Benzonatate 100 Mg Capsule) 100 mg PO TID PRN PRN Reason: Cough Last Admin: 05/30/24 08:05 Dose: 100 mg Documented By: RASHARD Calcium Carbonate (Calcium Carbonate 750 Mg Tab.Chew) 750 mg PO Q4H PRN PRN Reason: Heartburn Doxycycline Monohydrate (Doxycycline Monohydrate 100 Mg Capsule) 100 mg PO BID [facility] Last Admin: 05/30/24 08:03 Dose: 100 mg Documented By: RASHARD Fluticasone/Vilanterol (Fluticasone/Vilanterol 200/25 Blst.W.Dev) 1 puff INHALE RDAILY [facility] Last Admin: 05/30/24 08:08 Dose: 1 puff Documented By: ANILA Guaifenesin (Guaifenesin 200 Mg/10 Ml 10 Ml Liquid) 10 ml PO Q4H PRN PRN Reason: Cough Last Admin: 05/30/24 08:05 Dose: 10 ml Documented By: RASHARD Piperacillin Sod/Tazobactam (Sod 4.5 gm/ Sodium Chloride) 100 mls @ 200 mls/hr IV Q6H [facility] Last Infusion: 05/30/24 11:16 Dose: Infused Documented By: RASHARD Levalbuterol HCl (Levalbuterol Hcl 1.25 Mg/3 Ml Vial.Neb) 1.25 mg INHALE Q3H PRN PRN Reason: Wheezing Last Admin: 05/27/24 15:31 Dose: 1.25 mg Documented By: CHRISTIN Levalbuterol HCl (Levalbuterol Hcl 1.25 Mg/3 Ml Vial.Neb) 1.25 mg INHALE RTID [facility] Last Admin: 05/30/24 08:08 Dose: 1.25 mg Documented By: ANILA Loratadine (Loratadine 10 Mg Tablet) 10 mg PO DAILY [facility] Last Admin: 05/30/24 08:03 Dose: 10 mg Documented By: RASHARD Magnesium Hydroxide (Milk Of Magnesia 30 Ml Oral.Susp) 30 ml PO DAILY PRN PRN Reason: Constipation Melatonin (Melatonin 3 Mg Tablet) 6 mg PO BEDTIME PRN PRN Reason: Insomnia Methylprednisolone Sodium Succinate (Methylprednisolone Sod Succ 40 Mg/Ml Vial) 40 mg IVPUSH Q12H [facility] Last Admin: 05/30/24 08:03 Dose: 40 mg Documented By: RASHARD Metoprolol Succinate (Metoprolol Succinate Er 25 Mg Tab.Er.24h) 25 mg PO DAILY [facility]; Protocol Last Admin: 05/30/24 08:03 Dose: 25 mg Documented By: RASHARD Montelukast Sodium (Montelukast Sodium 10 Mg Tablet) 10 mg PO BEDTIME [facility] Last Admin: 05/29/24 20:44 Dose: 10 mg Documented By: JOHNNY Pt Owned Med ( Cyclosporine 0.05% Eye Emulsion) 1 each EYE-BOTH BID [facility] Last Admin: 05/30/24 08:03 Dose: 1 each Documented By: RASHARD Omeprazole (Omeprazole 20 Mg Capsule.Dr) 20 mg PO DAILY@0630 [facility] Last Admin: 05/30/24 05:54 Dose: 20 mg Documented By: JOHNNY Sodium Chloride (0.9 % Sodium Chloride Flush 3 Ml Syringe) 3 ml IVFLUSH QSHIFT [facility] Last Admin: 05/30/24 08:04 Dose: 3 ml Documented By: RASHARD Vitamin D (Cholecalciferol (Vitamin D3) 25 Mcg Tablet) 125 mcg PO DAILY [facility] Last Admin: 05/30/24 08:03 Dose: 125 mcg Documented By: RASHARD Labs 05/27/24 06:37 05/27/24 06:37 Assessment and Plan (1) Bilateral atelectasis: Status: Acute (2) Pneumonia: Status: Acute Plan This is a 73-year-old female with a past medical history of HTN, HLD, hyperparathyroidism status post parathyroidectomy, asthma, GERD, AFib on Eliquis who presented to the hospital with a chief complaint of cough and shortness of breath found to have PNA with acute hypoxic respiratory failure Acute hypoxic respiratory failure d/t b/l PNA, atelectasis and possible aspiration. CTA negative for PE Remains hypoxic, oxygen requirements slowly improving Echocardiogram normal, BNP low Ceftriaxone and Doxy, started 05/26--> ceftriaxone changed to Zosyn 05/28 Continue steroids supplemental O2 with goal of O2 sat 94% Seen by pulmonology, recommend to consider diuresis Speech evaluation pending; had possible aspiration event this morning Bibasilar atelectasis-incentive spirometry Blood cultures negative to date Mod persistent asthma with acute exacerbation Imaging showing underlying emphysematous changes as well bronchodilators by Neb O2 as above Continue IV solumedrol given persistent hypoxia Chronic AFib, rate controlled Patient states she was taken off Multaq last fall continue metoprolol Continue Eliquis HTN continue metoprolol and Amlodipine DVT prophylaxis: Eliquis Code status: Full code Patient requires ongoing inpatient stay for management of respiratory failure requiring of supplemental oxygen and multiple IV medications as well as specialist evaluation Quality Stroke Does the patient have a stroke diagnosis?: No VTE Prior VTE?: No VTE Risk Level:: Medical - moderate - high VTE Device Contraindication: N/A - Device Ordered VTE Drug Contraindication: Treatment Not Indicated
[2024-05-30] MEDS: Promethazine HCL 25 MG TABLET PO (16:52)
[2024-05-30] MEDS: Furosemide 20 MG/2 ML VIAL IVPUSH (17:41)
[2024-05-30] MEDS: amLODIPine Besylate 10 MG TABLET PO (22:08)
[2024-05-30] MEDS: Montelukast Sodium 10 MG TABLET PO (22:08)
[2024-05-31] VITALS (13 sets, daily range): BP systolic 116–133; BP diastolic 56–70; PULSE 54–86; RESP 17–20; TEMP 36.3–36.9; O2SAT 90–96
[2024-05-31] MEDS: Piperacillin Sodium/Tazobactam 4.5 GM in 0.9 % Sodium Chloride 100 ML IV ×3 (04:14→17:34)
[2024-05-31] MEDS: methylPREDNISolone Sod Succ 40 MG/ML VIAL IVPUSH ×3 (04:14→15:46)
[2024-05-31] MEDS: Omeprazole 20 MG CAPSULE.DR PO (04:15)
[2024-05-31 07:11] LABS: Hematocrit 40.1 % (37.0-47.0); Hemoglobin 13.4 g/dl (12.0-16.0); Mean Corpuscular HGB Conc 33.4 g/dl (31.0-35.0); Mean Corpuscular Hemoglobin 29.8 pg (27.0-33.0); Mean Corpuscular Volume 89.3 fL (80.0-98.0); Mean Platelet Volume 9.8 fL (9.4-12.3); Platelet Count 410 X10*3/uL (160-400); Red Blood Count 4.49 X10*6/uL (4.20-5.50); Red Cell Distribution Width 13.1 % (11.0-16.0)
[2024-05-31 07:36] LABS: Anion Gap 12 (12-20); Blood Urea Nitrogen 23 mg/dL (9-16); Calcium 9.3 mg/dL (8.4-10.2); Carbon Dioxide 28 mmol/L (22-29); Chloride 106 mmol/L (96-108); Creatinine Clr Calc Pharmacy 59.5; Estimated Glomerular Filt Rate > 60; Glucose Random 138 mg/dL (60-115); Sodium 142 mmol/L (135-145)
[2024-05-31] MEDS: levalbuterol HCL 1.25 MG/3 ML VIAL.NEB INHALE ×3 (08:09→19:40)
[2024-05-31] MEDS: Fluticasone/Vilanterol 200/25 BLST.W.DEV 1 PUFF INHALE (08:09)
[2024-05-31] MEDS: Cholecalciferol (Vitamin D3) 25 MCG TABLET 125 MCG PO (08:17)
[2024-05-31] MEDS: Metoprolol Succinate ER 25 MG TAB.ER.24H PO (08:17)
[2024-05-31] MEDS: Doxycycline Monohydrate 100 MG CAPSULE PO ×2 (08:18→20:23)
[2024-05-31] MEDS: Apixaban 5 MG TABLET PO ×2 (08:18→20:23)
[2024-05-31] MEDS: Loratadine 10 MG TABLET PO (08:18)
[2024-05-31] MEDS: 0.9 % Sodium Chloride Flush 3 ML SYRINGE IVFLUSH ×2 (08:18→15:46)
[2024-05-31] MEDS: CYCLOSPORINE 0.05% 1 EACH EYE-BOTH ×2 (08:23→20:24)
--- NOTE | 2024-05-31 10:04 | PC.NURSE ---
Patient off unit to CT scan, per RT patient was placed on oxymask at 15L, transported in wheelchair.
--- NOTE | 2024-05-31 10:15 | PC.NURSE ---
Patient back in the room from CT, switched over to [place], sat's above 90%. patient tolerated procedure well.
[2024-05-31 11:39] LABS: Adenovirus PCR Not Detected (Not Detect.); Bordetella parapertussis PCR Not Detected (Not Detect.); Bordetella pertussis PCR Not Detected (Not Detect.); Chlamydia pneumoniae PCR Not Detected (Not Detect.); Coronavirus 229E PCR Not Detected (Not Detect.); Coronavirus HKU1 PCR Not Detected (Not Detect.); Coronavirus NL63 PCR Not Detected (Not Detect.); Coronavirus OC43 PCR Not Detected (Not Detect.); Human metapneumovirus PCR Not Detected (Not Detect.); Influenza A PCR Not Detected (Not Detect.); Influenza B PCR Not Detected (Not Detect.); Mycoplasma pneumoniae PCR Not Detected (Not Detect.); Parainfluenza 1 PCR Not Detected (Not Detect.); Parainfluenza 2 PCR Not Detected (Not Detect.); Parainfluenza 3 PCR Not Detected (Not Detect.); Parainfluenza 4 PCR Not Detected (Not Detect.); RSV PCR Not Detected (Not Detect.); Rhino/Enterovirus PCR Not Detected (Not Detect.)
[2024-05-31 11:40] LABS: Influenza A H1 PCR Not Detected (Not Detect.); Influenza A H1-2009 PCR Not Detected (Not Detect.); Influenza A H3 PCR Not Detected (Not Detect.); SARS-CoV-2 PCR Not Detected (Not Detect.)
--- NOTE | 2024-05-31 12:52 | P.PNPL_ITS ---
Subjective Subjective Date of Service: 05/31/24 Interval history: Initially improving, however over the last several days with worsening FiO2 requirements. Objective Data Labs 05/31/24 06:26 05/31/24 06:26 Labs: Laboratory Results - last 24 hr 05/31/24 05/31/24 06:26 08:08 WBC 13.0 H RBC 4.49 Hgb 13.4 Hct 40.1 MCV 89.3 MCH 29.8 MCHC 33.4 RDW 13.1 Plt Count 410 H D MPV 9.8 Absolute Nucleated RBC 0.000 Nucleated RBC % (auto) 0.0 Sodium 142 Potassium 4.0 Chloride 106 Carbon Dioxide 28 Anion Gap 12 BUN 23 H Creatinine 0.81 Estim Creat Clear Calc 59.5 Estimated GFR > 60 Random Glucose 138 H Calcium 9.3 Respiratory Panel Stokes See Note Adenovirus (Rapid PCR) Not Detected B.pert (TEM-PCR) Not Detected B.parapertussis DNA PCR Not Detected C. pneumoniae DNA (PCR) Not Detected Coronavirus OC43 (PCR) Not Detected Coronavirus HKU1 (PCR) Not Detected Coronavirus 229E (PCR) Not Detected Coronavirus NL63 (PCR) Not Detected Human Metapneumovir PCR Not Detected Influenza A (RT-PCR) Not Detected Influenza A (H1) PCR Not Detected Influ A (H1/09) PCR Not Detected Influenza A (H3) PCR Not Detected Influenza B (RT-PCR) Not Detected M. pneumoniae (PCR) Not Detected Parainfluenza 1 (PCR) Not Detected Parainfluenza 2 (PCR) Not Detected Parainfluenza 3 (PCR) Not Detected Parainfluenza 4 (PCR) Not Detected RSV (PCR) Not Detected Entero/Rhino (PCR) Not Detected SARS-CoV-2 RNA (RT-PCR) Not Detected Microbiology Microbiology Results: Microbiology 05/25/24 23:41 Blood - Venous Blood Culture - Final No growth after 5 days. 05/25/24 23:31 Blood - Venous Blood Culture - Final No growth after 5 days. Review of Systems Constitutional: Denies daytime sleepiness, Denies excessive sweating, Denies fatigue, Denies fever(s), Denies lethargy, Denies malaise, Denies night sweats, Denies snoring and Denies weight loss Eyes: Denies blurry vision and Denies itchy eyes Denies nasal congestion, Denies post nasal drip, Denies sinus pain, Denies sinus pressure and Denies other ( Thrush) Cardiovascular: Denies chest pain, Reports pedal edema, Reports dyspnea, Denies orthopnea and Denies paroxysmal nocturnal dyspnea Respiratory: Denies cough, Denies hemoptysis, Denies excessive phlegm production, Reports dyspnea, Denies snoring and Denies wheezing Gastrointestinal: Denies abdominal pain and Denies heartburn Musculoskeletal: Denies myalgias, Denies arthralgias and Denies joint swelling Skin/Breast: Denies rash Denies memory loss and Denies seizure-like activity Psychiatric: Denies abnormal sleep pattern, Denies anxiety and Denies memory loss Endocrine: Denies excessive sweating, Denies fatigue and Denies heat intolerance Hematologic/Lymphatic: Denies easy bruising Allergic/Immunologic: Denies itchy eyes, Denies seasonal rhinorrhea and Denies wheezing Physical Exam 2 Vital Signs: Vital Signs: Last Vital Signs Temp 97.3 F 05/31/24 11:51 Pulse 54 05/31/24 11:51 Resp 20 05/31/24 11:51 BP 123/59 L 05/31/24 11:51 Pulse Ox 93 05/31/24 11:51 O2 Del Method High Flow Nasal C annula 05/31/24 11:51 O2 Flow Rate 50 05/31/24 11:51 FiO2 100 05/31/24 11:51 Oxygen Flow Rate 2 05/25/24 23:08 BMI result Body Mass Index 32.1 Const: General: no acute distress, alert and awake Eyes: Sclerae: sclerae normal EOM: EOMs intact bilaterally Neck: Neck: Yes no lymphadenopathy, Yes trachea midline and Yes supple Resp: Effort & Inspection: normal respiratory effort and no respiratory distress Auscultation: crackles (Mild bilateral) Cardio: Rate: regular rate Rhythm: regular rhythm Heart sounds: no gallops, no murmurs and no rubs GI: Palpation (GI): Soft to palpation and Other GI palpation findings present ( Nontender) Auscultation: normal bowel sounds Extrem: General: No clubbing, No cyanosis and Yes edema (1+ bilateral) Procedures Date of Service Date of Service: 05/31/24 Assessment and Plan Assessment and plan (1) Hypoxia: Status: Acute (2) Bilateral atelectasis: Status: Acute Plan Impression: 73-year-old lady admitted with acute hypoxic respiratory failure and noted to have bibasilar atelectasis/chronic aspiration, initially improving, now with worsening FiO2 requirements. CT chest demonstrating denser bibasilar infiltrates. Likely sequela of repeated aspiration event and possibly pulmonary edema. Recommendation: Would suggests obtain modified barium swallow study and increasing diuretic regimen. At this time would advise against changing antibiotic regimen. Would suggest tapering off systemic glucocorticoids. Time Spent With Patient Time: Total time managing care of this patient today ____ minutes. Progress Note: Quality Stroke Does the patient have a stroke diagnosis?: No
[2024-05-31] MEDS: Furosemide 40 MG/4 ML VIAL IVPUSH (14:31)
--- NOTE | 2024-05-31 14:32 | HO.PM.IMPN ---
Subjective Subjective Date of Service: 05/31/24 Interval History: Seen and examined this morning Follow-up for respiratory failure Was placed on high-flow supplemental oxygen overnight -despite that patient reports feeling somewhat better today. Less coughing Review of Systems Review of Systems: Yes all other systems are reviewed and are negative Constitutional Constitutional: Denies chills and Denies fever(s) Physical Exam Vital Signs: Vital Signs: Last Vital Signs Temp 97.3 F 05/31/24 11:51 Pulse 54 05/31/24 11:51 Resp 20 05/31/24 11:51 BP 123/59 L 05/31/24 11:51 Pulse Ox 93 05/31/24 11:51 O2 Del Method High Flow Nasal C annula 05/31/24 11:51 O2 Flow Rate 50 05/31/24 11:51 FiO2 100 05/31/24 11:51 Oxygen Flow Rate 2 05/25/24 23:08 BMI result Body Mass Index 32.1 Const: General: cooperative, comfortable, alert and awake Orientation/consciousness: patient oriented x3 Resp: Other: dim bases, no wheeze Effort & Inspection: normal respiratory effort, able to speak in complete sentences, no respiratory distress and no use of accessory muscles Cardio: Rate: regular rate GI: Inspection: No distended Palpation (GI): Soft to palpation and nontender Neuro: General: patient oriented x3, moves all extremities and CN's II-XI intact bilaterally Extrem: General: Yes no pedal edema Objective Data Active Medications Acetaminophen (Acetaminophen 325 Mg Tablet) 650 mg PO Q6H PRN PRN Reason: Pain, Mild 1-3,fever,headache Amlodipine Besylate (Amlodipine Besylate 10 Mg Tablet) 10 mg PO BEDTIME IONA; Protocol Last Admin: 05/30/24 22:08 Dose: 10 mg Documented By: LITA-KIRAZEYris Apixaban (Apixaban 5 Mg Tablet) 5 mg PO BID [facility] Last Admin: 05/31/24 08:18 Dose: 5 mg Documented By: DOBROB Benzocaine (Throat Lozenge, Medicated Lozenge) 1 lozenge MUCOUS MEM Q2H PRN PRN Reason: Sore Throat Last Admin: 05/30/24 22:08 Dose: 1 lozenge Documented By: BRANDIEZEB Benzonatate (Benzonatate 100 Mg Capsule) 100 mg PO TID PRN PRN Reason: Cough Last Admin: 05/30/24 22:08 Dose: 100 mg Documented By: ARACELI Calcium Carbonate (Calcium Carbonate 750 Mg Tab.Chew) 750 mg PO Q4H PRN PRN Reason: Heartburn Doxycycline Monohydrate (Doxycycline Monohydrate 100 Mg Capsule) 100 mg PO BID [facility] Last Admin: 05/31/24 08:18 Dose: 100 mg Documented By: LUCRECIA Fluticasone/Vilanterol (Fluticasone/Vilanterol 200/25 Blst.W.Dev) 1 puff INHALE RDAILY [facility] Last Admin: 05/31/24 08:09 Dose: 1 puff Documented By: ANILA Guaifenesin (Guaifenesin 200 Mg/10 Ml 10 Ml Liquid) 10 ml PO Q4H PRN PRN Reason: Cough Last Admin: 05/30/24 22:08 Dose: 10 ml Documented By: ARACELI Piperacillin Sod/Tazobactam (Sod 4.5 gm/ Sodium Chloride) 100 mls @ 200 mls/hr IV Q6H [facility] Last Infusion: 05/31/24 14:06 Dose: Infused Documented By: LUCRECIA Levalbuterol HCl (Levalbuterol Hcl 1.25 Mg/3 Ml Vial.Neb) 1.25 mg INHALE Q3H PRN PRN Reason: Wheezing Last Admin: 05/27/24 15:31 Dose: 1.25 mg Documented By: CHRISTIN Levalbuterol HCl (Levalbuterol Hcl 1.25 Mg/3 Ml Vial.Neb) 1.25 mg INHALE RTID [facility] Last Admin: 05/31/24 08:09 Dose: 1.25 mg Documented By: ANILA Loratadine (Loratadine 10 Mg Tablet) 10 mg PO DAILY [facility] Last Admin: 05/31/24 08:18 Dose: 10 mg Documented By: LUCRECIA Magnesium Hydroxide (Milk Of Magnesia 30 Ml Oral.Susp) 30 ml PO DAILY PRN PRN Reason: Constipation Melatonin (Melatonin 3 Mg Tablet) 6 mg PO BEDTIME PRN PRN Reason: Insomnia Methylprednisolone Sodium Succinate (Methylprednisolone Sod Succ 40 Mg/Ml Vial) 40 mg IVPUSH Q8H [facility] Last Admin: 05/31/24 08:18 Dose: 40 mg Documented By: LUCRECIA Metoprolol Succinate (Metoprolol Succinate Er 25 Mg Tab.Er.24h) 25 mg PO DAILY [facility]; Protocol Last Admin: 05/31/24 08:17 Dose: 25 mg Documented By: LUCRECIA Montelukast Sodium (Montelukast Sodium 10 Mg Tablet) 10 mg PO BEDTIME [facility] Last Admin: 05/30/24 22:08 Dose: 10 mg Documented By: ARACELI Pt Owned Med ( Cyclosporine 0.05% Eye Emulsion) 1 each EYE-BOTH BID [facility] Last Admin: 05/31/24 08:23 Dose: 1 each Documented By: LUCRECIA Omeprazole (Omeprazole 20 Mg Capsule.Dr) 20 mg PO DAILY@0630 [facility] Last Admin: 05/31/24 04:15 Dose: 20 mg Documented By: ARACELI Sodium Chloride (0.9 % Sodium Chloride Flush 3 Ml Syringe) 3 ml IVFLUSH QSHIFT [facility] Last Admin: 05/31/24 08:18 Dose: 3 ml Documented By: LUCRECIA Vitamin D (Cholecalciferol (Vitamin D3) 25 Mcg Tablet) 125 mcg PO DAILY [facility] Last Admin: 05/31/24 08:17 Dose: 125 mcg Documented By: LUCRECIA Labs 05/31/24 06:26 05/31/24 06:26 Labs: Laboratory Results - last 24 hr 05/31/24 05/31/24 06:26 08:08 MCV 89.3 MCH 29.8 MCHC 33.4 RDW 13.1 Plt Count 410 H D MPV 9.8 Absolute Nucleated RBC 0.000 Nucleated RBC % (auto) 0.0 Anion Gap 12 Estim Creat Clear Calc 59.5 Estimated GFR > 60 Random Glucose 138 H Calcium 9.3 Respiratory Panel [facility] See Note Adenovirus (Rapid PCR) Not Detected B.pert (TEM-PCR) Not Detected B.parapertussis DNA PCR Not Detected C. pneumoniae DNA (PCR) Not Detected Coronavirus OC43 (PCR) Not Detected Coronavirus HKU1 (PCR) Not Detected Coronavirus 229E (PCR) Not Detected Coronavirus NL63 (PCR) Not Detected Human Metapneumovir PCR Not Detected Influenza A (RT-PCR) Not Detected Influenza A (H1) PCR Not Detected Influ A (H1/09) PCR Not Detected Influenza A (H3) PCR Not Detected Influenza B (RT-PCR) Not Detected M. pneumoniae (PCR) Not Detected Parainfluenza 1 (PCR) Not Detected Parainfluenza 2 (PCR) Not Detected Parainfluenza 3 (PCR) Not Detected Parainfluenza 4 (PCR) Not Detected RSV (PCR) Not Detected Entero/Rhino (PCR) Not Detected SARS-CoV-2 RNA (RT-PCR) Not Detected Microbiology Microbiology Results: Microbiology 05/25/24 23:41 Blood Culture - Final Blood - Venous No growth after 5 days. 05/25/24 23:31 Blood Culture - Final Blood - Venous No growth after 5 days. Assessment and Plan (1) Pneumonia: Status: Acute Plan This is a 73-year-old female with a past medical history of HTN, HLD, hyperparathyroidism status post parathyroidectomy, asthma, GERD, AFib on Eliquis who presented to the hospital with a chief complaint of cough and shortness of breath found to have PNA with acute hypoxic respiratory failure Acute hypoxic respiratory failure d/t b/l PNA, atelectasis and possible aspiration. Now requiring high flow oxygen CTA negative for PE. Echocardiogram normal, BNP low. RPP negative Ceftriaxone and Doxy, started 05/26--> ceftriaxone changed to Zosyn 05/28 seen by speech, cleared for regular diet, no overt aspiration incentive spirometry Blood cultures negative to date repeat CT scan 05/30 with worsening infiltrates Trial IV Lasix Wean IV steroids plan for MBSS Sunday Mod persistent asthma with acute exacerbation Imaging showing underlying emphysematous changes as well bronchodilators by Neb O2 as above will begin weaning IV solumedrol Chronic AFib, rate controlled Patient states she was taken off Multaq last fall continue metoprolol Continue Eliquis HTN continue metoprolol and Amlodipine DVT prophylaxis: Eliquis Code status: Full code Patient requires ongoing inpatient stay for management of respiratory failure requiring of supplemental oxygen and multiple IV medications as well as specialist evaluation Quality Stroke Does the patient have a stroke diagnosis?: No VTE Prior VTE?: No VTE Risk Level:: Medical - moderate - high VTE Device Contraindication: N/A - Device Ordered VTE Drug Contraindication: Treatment Not Indicated
--- NOTE | 2024-05-31 18:30 | PC.NURSE ---
Patient alert and oriented, continues on Hi flow at 50L and 65% sats above 92 at rest. Patient ambulates to the bathroom on 15L oxymask. Continues to c/o LAWS, no pain reported,
[2024-05-31] MEDS: Benzonatate 100 MG CAPSULE PO (20:23)
[2024-05-31] MEDS: amLODIPine Besylate 10 MG TABLET PO (20:23)
[2024-05-31] MEDS: Montelukast Sodium 10 MG TABLET PO (20:23)
[2024-06-01] VITALS (14 sets, daily range): BP systolic 112–152; BP diastolic 56–73; PULSE 67–86; RESP 16–20; TEMP 36.1–36.9; O2SAT 90–93
[2024-06-01] MEDS: Piperacillin Sodium/Tazobactam 4.5 GM in 0.9 % Sodium Chloride 100 ML IV ×5 (00:09→23:52)
[2024-06-01] MEDS: 0.9 % Sodium Chloride Flush 3 ML SYRINGE IVFLUSH ×4 (00:10→23:57)
[2024-06-01] MEDS: methylPREDNISolone Sod Succ 40 MG/ML VIAL IVPUSH (04:28)
[2024-06-01] MEDS: Omeprazole 20 MG CAPSULE.DR PO ×2 (04:28→17:03)
[2024-06-01] MEDS: Fluticasone/Vilanterol 200/25 BLST.W.DEV 1 PUFF INHALE (08:21)
[2024-06-01] MEDS: levalbuterol HCL 1.25 MG/3 ML VIAL.NEB INHALE ×3 (08:22→20:23)
[2024-06-01 09:01] LABS: Anion Gap 13 (12-20); Blood Urea Nitrogen 24 mg/dL (9-16); Carbon Dioxide 25 mmol/L (22-29); Chloride 106 mmol/L (96-108); Estimated Glomerular Filt Rate > 60; Glucose Random 155 mg/dL (60-115); Potassium 3.2 mmol/L (3.3-5.1); Sodium 141 mmol/L (135-145)
[2024-06-01] MEDS: Cholecalciferol (Vitamin D3) 25 MCG TABLET 125 MCG PO (10:21)
[2024-06-01] MEDS: Apixaban 5 MG TABLET PO ×2 (10:21→20:16)
[2024-06-01] MEDS: Doxycycline Monohydrate 100 MG CAPSULE PO ×2 (10:23→20:16)
[2024-06-01] MEDS: Furosemide 40 MG/4 ML VIAL IVPUSH (10:23)
[2024-06-01] MEDS: Metoprolol Succinate ER 25 MG TAB.ER.24H PO (10:24)
[2024-06-01] MEDS: Loratadine 10 MG TABLET PO (10:24)
[2024-06-01] MEDS: CYCLOSPORINE 0.05% 1 EACH EYE-BOTH ×2 (10:25→20:24)
--- NOTE | 2024-06-01 10:27 | P.PNIM_ITS ---
Subjective Subjective Date of Service: 06/01/24 Interval History: Seen and examined this morning Follow-up for respiratory failure, pneumonia Patient reports feeling well, denies shortness of breath, cough improving. Remains on high-flow Review of Systems Review of Systems: Yes all other systems are reviewed and are negative Constitutional Constitutional: Denies chills and Denies fever(s) Cardiovascular Cardiovascular: Denies chest pain, Denies palpitations and Denies dyspnea Respiratory Respiratory: Reports cough and Denies dyspnea Gastrointestinal Gastrointestinal: Denies abdominal pain Endocrine Endocrine: Denies palpitations Physical Exam 2 Vital Signs: Vital Signs: Last Vital Signs Temp 96.9 F 06/01/24 07:49 Pulse 80 06/01/24 08:23 Resp 18 06/01/24 08:23 BP 123/63 06/01/24 07:49 Pulse Ox 91 L 06/01/24 07:49 O2 Del Method High Flow Nasal C annula 06/01/24 07:49 O2 Flow Rate 50 06/01/24 03:21 FiO2 73.6 06/01/24 03:21 Oxygen Flow Rate 2 05/25/24 23:08 BMI result Body Mass Index 32.1 Const: General: cooperative, comfortable, alert and awake O rientation/consciousness: patient oriented x3 Resp: Other: dim bases, no wheeze Effort & Inspection: normal respiratory effort, able to speak in complete sentences, no respiratory distress and no use of accessory muscles Cardio: Rate: regular rate GI: Inspection: No distended Palpation (GI): Soft to palpation and nontender Neuro: General: patient oriented x3, moves all extremities and CN's II-XI intact bilaterally Extrem: General: Yes no pedal edema Objective Data Active Medications Acetaminophen (Acetaminophen 325 Mg Tablet) 650 mg PO Q6H PRN PRN Reason: Pain, Mild 1-3,fever,headache Amlodipine Besylate (Amlodipine Besylate 10 Mg Tablet) 10 mg PO BEDTIME [facility]; Protocol Last Admin: 05/31/24 20:23 Dose: 10 mg Documented By: BRANDIEZEYris Apixaban (Apixaban 5 Mg Tablet) 5 mg PO BID [facility] Last Admin: 05/31/24 20:23 Dose: 5 mg Documented By: LITA-KIRAZEB Benzocaine (Throat Lozenge, Medicated Lozenge) 1 lozenge MUCOUS MEM Q2H PRN PRN Reason: Sore Throat Last Admin: 05/30/24 22:08 Dose: 1 lozenge Documented By: ARACELI Benzonatate (Benzonatate 100 Mg Capsule) 100 mg PO TID PRN PRN Reason: Cough Last Admin: 05/31/24 20:23 Dose: 100 mg Documented By: ARACELI Calcium Carbonate (Calcium Carbonate 750 Mg Tab.Chew) 750 mg PO Q4H PRN PRN Reason: Heartburn Doxycycline Monohydrate (Doxycycline Monohydrate 100 Mg Capsule) 100 mg PO BID [facility] Last Admin: 05/31/24 20:23 Dose: 100 mg Documented By: ARACELI Fluticasone/Vilanterol (Fluticasone/Vilanterol 200/25 Blst.W.Dev) 1 puff INHALE RDAILY [facility] Last Admin: 06/01/24 08:21 Dose: 1 puff Documented By: ANILA Furosemide (Furosemide 40 Mg/4 Ml Vial) 40 mg IVPUSH DAILY [facility]; Protocol Guaifenesin (Guaifenesin 200 Mg/10 Ml 10 Ml Liquid) 10 ml PO Q4H PRN PRN Reason: Cough Last Admin: 05/30/24 22:08 Dose: 10 ml Documented By: AARCELI Piperacillin Sod/Tazobactam (Sod 4.5 gm/ Sodium Chloride) 100 mls @ 200 mls/hr IV Q6H [facility] Last Infusion: 06/01/24 06:21 Dose: Infused Documented By: ARACELI Levalbuterol HCl (Levalbuterol Hcl 1.25 Mg/3 Ml Vial.Neb) 1.25 mg INHALE Q3H PRN PRN Reason: Wheezing Last Admin: 05/27/24 15:31 Dose: 1.25 mg Documented By: CHRISTIN Levalbuterol HCl (Levalbuterol Hcl 1.25 Mg/3 Ml Vial.Neb) 1.25 mg INHALE RTID [facility] Last Admin: 06/01/24 08:22 Dose: 1.25 mg Documented By: ANILA Loratadine (Loratadine 10 Mg Tablet) 10 mg PO DAILY [facility] Last Admin: 05/31/24 08:18 Dose: 10 mg Documented By: HO.DOBROB Magnesium Hydroxide (Milk Of Magnesia 30 Ml Oral.Susp) 30 ml PO DAILY PRN PRN Reason: Constipation Melatonin (Melatonin 3 Mg Tablet) 6 mg PO BEDTIME PRN PRN Reason: Insomnia Methylprednisolone Sodium Succinate (Methylprednisolone Sod Succ 40 Mg/Ml Vial) 40 mg IVPUSH Q12H [facility] Last Admin: 06/01/24 04:28 Dose: 40 mg Documented By: ARACELI Metoprolol Succinate (Metoprolol Succinate Er 25 Mg Tab.Er.24h) 25 mg PO DAILY [facility]; Protocol Last Admin: 05/31/24 08:17 Dose: 25 mg Documented By: LUCRECIA Montelukast Sodium (Montelukast Sodium 10 Mg Tablet) 10 mg PO BEDTIME [facility] Last Admin: 05/31/24 20:23 Dose: 10 mg Documented By: ARACEIL Pt Owned Med ( Cyclosporine 0.05% Eye Emulsion) 1 each EYE-BOTH BID [facility] Last Admin: 05/31/24 20:24 Dose: 1 each Documented By: ARACELI Omeprazole (Omeprazole 20 Mg Capsule.Dr) 20 mg PO DAILY@0630 [facility] Last Admin: 06/01/24 04:28 Dose: 20 mg Documented By: ARACELI Sodium Chloride (0.9 % Sodium Chloride Flush 3 Ml Syringe) 3 ml IVFLUSH QSHIFT [facility] Last Admin: 06/01/24 00:10 Dose: 3 ml Documented By: ARACELI Vitamin D (Cholecalciferol (Vitamin D3) 25 Mcg Tablet) 125 mcg PO DAILY [facility] Last Admin: 05/31/24 08:17 Dose: 125 mcg Documented By: LUCRECIA Labs 05/31/24 06:26 06/01/24 08:22 Labs: Laboratory Results - last 24 hr 05/31/24 06/01/24 08:08 08:22 Anion Gap 13 Estim Creat Clear Calc 66.0 Estimated GFR > 60 Random Glucose 155 H Calcium 9.0 Respiratory Panel Stokes See Note Adenovirus (Rapid PCR) Not Detected B.pert (TEM-PCR) Not Detected B.parapertussis DNA PCR Not Detected C. pneumoniae DNA (PCR) Not Detected Coronavirus OC43 (PCR) Not Detected Coronavirus HKU1 (PCR) Not Detected Coronavirus 229E (PCR) Not Detected Coronavirus NL63 (PCR) Not Detected Human Metapneumovir PCR Not Detected Influenza A (RT-PCR) Not Detected Influenza A (H1) PCR Not Detected Influ A (H1/09) PCR Not Detected Influenza A (H3) PCR Not Detected Influenza B (RT-PCR) Not Detected M. pneumoniae (PCR) Not Detected Parainfluenza 1 (PCR) Not Detected Parainfluenza 2 (PCR) Not Detected Parainfluenza 3 (PCR) Not Detected Parainfluenza 4 (PCR) Not Detected RSV (PCR) Not Detected Entero/Rhino (PCR) Not Detected SARS-CoV-2 RNA (RT-PCR) Not Detected Assessment and Plan (1) Hypoxia: Status: Acute (2) Pneumonia: Status: Acute (3) Bilateral atelectasis: Status: Acute Plan This is a 73-year-old female with a past medical history of HTN, HLD, hyperparathyroidism status post parathyroidectomy, asthma, GERD, AFib on Eliquis who presented to the hospital with a chief complaint of cough and shortness of breath found to have PNA with acute hypoxic respiratory failure Acute hypoxic respiratory failure d/t b/l PNA, atelectasis and high suspicion for aspiration. Now requiring high flow oxygen CTA negative for PE. Echocardiogram normal, BNP low. RPP negative Ceftriaxone and Doxy, started 05/26--> ceftriaxone changed to Zosyn 05/28 seen by speech, cleared for regular diet, no overt aspiration incentive spirometry Blood cultures negative to date repeat CT scan 05/30 with worsening infiltrates and concern for aspiration h/o aspergillus; not likely playing a role per pulm continue IV Lasix Wean IV steroids plan for MBSS Sunday Mod persistent asthma with acute exacerbation Imaging showing underlying emphysematous changes as well bronchodilators by Neb wean IV solumedrol Mild hypokalemia Likely due to Lasix Replace and follow BMP Chronic AFib, rate controlled Patient states she was taken off Multaq last fall continue metoprolol Continue Eliquis HTN continue metoprolol and Amlodipine DVT prophylaxis: Eliquis Code status: Full code Patient requires ongoing inpatient stay for management of respiratory failure requiring of supplemental oxygen and multiple IV medications as well as specialist evaluation, pln for MBSS, requiring high flow oxygen Quality Stroke Does the patient have a stroke diagnosis?: No VTE Prior VTE?: No VTE Risk Level:: Medical - moderate - high VTE Device Contraindication: N/A - Device Ordered VTE Drug Contraindication: Treatment Not Indicated
[2024-06-01] MEDS: Potassium Chloride Packet 20 MEQ PACKET 40 MEQ PO ×2 (11:26→20:16)
[2024-06-01 12:31] LABS: MRSA Nasal PCR NEGATIVE (Negative); SA Nasal PCR NEGATIVE (Negative)
[2024-06-01] MEDS: Montelukast Sodium 10 MG TABLET PO (20:16)
[2024-06-01] MEDS: amLODIPine Besylate 10 MG TABLET PO (20:16)
[2024-06-02] VITALS (46 sets, daily range): BP systolic 69–180; BP diastolic 35–110; PULSE 56–122; RESP 17–26; TEMP 32–37.4; O2SAT 82–99; BMI 32.1
[2024-06-02] MEDS: guaiFENesin 200 MG/10 ML 10 ML LIQUID PO (03:51)
[2024-06-02] MEDS: levalbuterol HCL 1.25 MG/3 ML VIAL.NEB INHALE ×2 (03:57→07:37)
[2024-06-02] MEDS: Piperacillin Sodium/Tazobactam 4.5 GM in 0.9 % Sodium Chloride 100 ML IV ×4 (05:59→23:27)
[2024-06-02] MEDS: methylPREDNISolone Sod Succ 40 MG/ML VIAL IVPUSH ×3 (06:01→17:49)
[2024-06-02] MEDS: Omeprazole 20 MG CAPSULE.DR PO (06:01)
[2024-06-02 07:17] LABS: Anion Gap 12 (12-20); Blood Urea Nitrogen 25 mg/dL (9-16); Calcium 8.6 mg/dL (8.4-10.2); Carbon Dioxide 26 mmol/L (22-29); Chloride 106 mmol/L (96-108); Creatinine Clr Calc Pharmacy 66.9; Estimated Glomerular Filt Rate > 60; Glucose Random 84 mg/dL (60-115); Potassium 3.2 mmol/L (3.3-5.1); Sodium 141 mmol/L (135-145)
--- NOTE | 2024-06-02 07:47 | HO.PM.IMPN ---
Subjective Subjective Date of Service: 06/02/24 Interval History: Seen and examined this morning Follow-up for respiratory failure, pneumonia Patient reports feeling well, denies shortness of breath, cough improving. Remains on high-flow RR at 0730 for hypoxia, pt intubated and tx to ICU Review of Systems Review of Systems: Yes all other systems are reviewed and are negative Constitutional Constitutional: Denies chills and Denies fever(s) Cardiovascular Cardiovascular: Denies chest pain, Denies palpitations and Denies dyspnea Respiratory Respiratory: Reports cough and Denies dyspnea Gastrointestinal Gastrointestinal: Denies abdominal pain Endocrine Endocrine: Denies palpitations Physical Exam Vital Signs: Vital Signs: Last Vital Signs Temp 97.3 F 06/02/24 07:19 Pulse 99 06/02/24 07:39 Resp 26 H 06/02/24 07:39 BP 108/57 L 06/02/24 07:19 Pulse Ox 92 06/02/24 07:19 O2 Del Method High Flow Nasal C annula 06/02/24 07:19 O2 Flow Rate 50 06/02/24 07:19 FiO2 70 06/02/24 07:19 Oxygen Flow Rate 2 05/25/24 23:08 BMI result Body Mass Index 32.1 Appearing in no acute distress lung sounds left dim heart regular rate rhythm, clear S1, S2 positive bowel sounds, abdomen is soft, nontender neuro patient is alert x3, no focal deficits Objective Data Active Medications Acetaminophen (Acetaminophen 325 Mg Tablet) 650 mg PO Q6H PRN PRN Reason: Pain, Mild 1-3,fever,headache Amlodipine Besylate (Amlodipine Besylate 10 Mg Tablet) 10 mg PO BEDTIME [facility]; Protocol Last Admin: 06/01/24 20:16 Dose: 10 mg Documented By: JODY Apixaban (Apixaban 5 Mg Tablet) 5 mg PO BID [facility] Last Admin: 06/01/24 20:16 Dose: 5 mg Documented By: JODY Benzocaine (Throat Lozenge, Medicated Lozenge) 1 lozenge MUCOUS MEM Q2H PRN PRN Reason: Sore Throat Last Admin: 05/30/24 22:08 Dose: 1 lozenge Documented By: LITA-JOZEB Benzonatate (Benzonatate 100 Mg Capsule) 100 mg PO TID PRN PRN Reason: Cough Last Admin: 05/31/24 20:23 Dose: 100 mg Documented By: LITA-KIRAZEYris Calcium Carbonate (Calcium Carbonate 750 Mg Tab.Chew) 750 mg PO Q4H PRN PRN Reason: Heartburn Doxycycline Monohydrate (Doxycycline Monohydrate 100 Mg Capsule) 100 mg PO BID [facility] Last Admin: 06/01/24 20:16 Dose: 100 mg Documented By: JODY Fluticasone/Vilanterol (Fluticasone/Vilanterol 200/25 Blst.W.Dev) 1 puff INHALE RDAILY [facility] Last Admin: 06/02/24 07:39 Dose: Not Given Documented By: CHRISTIN Non-Admin Reason: Patient Condition Contraindication Furosemide (Furosemide 40 Mg/4 Ml Vial) 40 mg IVPUSH DAILY [facility]; Protocol Last Admin: 06/01/24 10:23 Dose: 40 mg Documented By: VIMAL Guaifenesin (Guaifenesin 200 Mg/10 Ml 10 Ml Liquid) 10 ml PO Q4H PRN PRN Reason: Cough Last Admin: 06/02/24 03:51 Dose: 10 ml Documented By: MARGARITA Piperacillin Sod/Tazobactam (Sod 4.5 gm/ Sodium Chloride) 100 mls @ 200 mls/hr IV Q6H [facility] Last Infusion: 06/02/24 07:19 Dose: Infused Documented By: LOWELL Levalbuterol HCl (Levalbuterol Hcl 1.25 Mg/3 Ml Vial.Neb) 1.25 mg INHALE Q3H PRN PRN Reason: Wheezing Last Admin: 06/02/24 03:57 Dose: 1.25 mg Documented By: RAI Levalbuterol HCl (Levalbuterol Hcl 1.25 Mg/3 Ml Vial.Neb) 1.25 mg INHALE RTID [facility] Last Admin: 06/02/24 07:37 Dose: 1.25 mg Documented By: CHRISTIN Loratadine (Loratadine 10 Mg Tablet) 10 mg PO DAILY [facility] Last Admin: 06/01/24 10:24 Dose: 10 mg Documented By: VIMAL Magnesium Hydroxide (Milk Of Magnesia 30 Ml Oral.Susp) 30 ml PO DAILY PRN PRN Reason: Constipation Melatonin (Melatonin 3 Mg Tablet) 6 mg PO BEDTIME PRN PRN Reason: Insomnia Methylprednisolone Sodium Succinate (Methylprednisolone Sod Succ 40 Mg/Ml Vial) 40 mg IVPUSH Q24H [facility] Last Admin: 06/02/24 06:01 Dose: 40 mg Documented By: JODY Metoprolol Succinate (Metoprolol Succinate Er 25 Mg Tab.Er.24h) 25 mg PO DAILY [facility]; Protocol Last Admin: 06/01/24 10:24 Dose: 25 mg Documented By: ROSAURARP Montelukast Sodium (Montelukast Sodium 10 Mg Tablet) 10 mg PO BEDTIME [facility] Last Admin: 06/01/24 20:16 Dose: 10 mg Documented By: JODY Pt Owned Med ( Cyclosporine 0.05% Eye Emulsion) 1 each EYE-BOTH BID [facility] Last Admin: 06/01/24 20:24 Dose: 1 each Documented By: JODY Omeprazole (Omeprazole 20 Mg Capsule.Dr) 20 mg PO BID@0630,1630 [facility] Last Admin: 06/02/24 06:01 Dose: 20 mg Documented By: JODY Simethicone (Simethicone 80 Mg Tab.Chew) 80 mg PO QIDWMHS PRN PRN Reason: Gas Sodium Chloride (0.9 % Sodium Chloride Flush 3 Ml Syringe) 3 ml IVFLUSH QSHIFT [facility] Last Admin: 06/01/24 23:57 Dose: 3 ml Documented By: JODY Vitamin D (Cholecalciferol (Vitamin D3) 25 Mcg Tablet) 125 mcg PO DAILY [facility] Last Admin: 06/01/24 10:21 Dose: 125 mcg Documented By: VIMAL Labs 05/31/24 06:26 06/02/24 06:25 Labs: Laboratory Results - last 24 hr 05/31/24 06/01/24 06/02/24 16:54 08:22 06:25 Hold Purple Top SEE NOTE Anion Gap 13 12 Estim Creat Clear Calc 66.0 66.9 Estimated GFR > 60 > 60 Random Glucose 155 H 84 Calcium 9.0 8.6 Nasal Screen MRSA (PCR) NEGATIVE Nasal S. aureus Screen NEGATIVE Nasal MRSA/S.aureus Interp SEE NOTE Assessment and Plan (1) Hypoxia: Status: Acute (2) Pneumonia: Status: Acute (3) Bilateral atelectasis: Status: Acute Plan This is a 73-year-old female with a past medical history of HTN, HLD, hyperparathyroidism status post parathyroidectomy, asthma, GERD, AFib on Eliquis who presented to the hospital with a chief complaint of cough and shortness of breath found to have PNA with acute hypoxic respiratory failure 0730 patient coughing and found to be hypoxic had been on high flow, placed on Bipap for approx 15 min, sats still 70s, 80s, RR called and patient intubated. Transfer down to ICU, discussed with ICU attending. Acute hypoxic respiratory failure d/t b/l PNA, atelectasis and high suspicion for aspiration. Now requiring high flow oxygen CTA negative for PE. Echocardiogram normal, BNP low. RPP negative Ceftriaxone and Doxy, started 05/26--> ceftriaxone changed to Zosyn 05/28 seen by speech, cleared for regular diet, no overt aspiration incentive spirometry Blood cultures negative to date repeat CT scan 05/30 with worsening infiltrates and concern for aspiration h/o aspergillus; not likely playing a role per pulm continue IV Lasix Wean IV steroids plan for MBSS Sunday Mod persistent asthma with acute exacerbation Imaging showing underlying emphysematous changes as well bronchodilators by Neb wean IV solumedrol Mild hypokalemia Likely due to Lasix Replace and follow BMP Chronic AFib, rate controlled Patient states she was taken off Multaq last fall continue metoprolol Continue Eliquis HTN continue metoprolol and Amlodipine DVT prophylaxis: Eliquis Code status: Full code Patient requires ongoing inpatient stay for management of respiratory failure requiring of supplemental oxygen and multiple IV medications as well as specialist evaluation, pln for MBSS, requiring high flow oxygen Quality Stroke Does the patient have a stroke diagnosis?: No VTE Prior VTE?: No VTE Risk Level:: Medical - moderate - high VTE Device Contraindication: N/A - Device Ordered VTE Drug Contraindication: Treatment Not Indicated
[2024-06-02] MEDS: Etomidate 20 MG/10 ML VIAL IVPUSH (07:58)
[2024-06-02] MEDS: Rocuronium Bromide 50 MG/5 ML VIAL IVPUSH ×2 (07:59→09:15)
[2024-06-02] MEDS: propofoL 1,000 MG/100 ML VIAL 14.31 MG IVCONT (08:00)
--- NOTE | 2024-06-02 08:13 | PC.RT ---
RT called to bedside for pt desat to 60's on HFNC. RT increased HFNC to max settings and placed NRB over at 100%. Pt SATs had little improvement. RT placed pt on Bipap w/ provider at bedside. After 10 minutes on 27/12 100%, little improvement. Rapid response called and pt was control intubated by ER w/ 7.5 ETT 23cm @lip. ETT confirmed w/ colormetric color change, bilateral breath sounds, condensation,m and numerical ETCO2 monitoring Pt transferred to ICU and initiated on mechanical ventilation. PT uriah well, SATs increased to 90-91% post intubation.
[2024-06-02] MEDS: fentaNYL citrate/NS 1,000 MCG/100 ML PLAST..BAG 2.5 MCG IVCONT (09:01)
[2024-06-02] MEDS: 0.9 % Sodium Chloride Flush 3 ML SYRINGE IVFLUSH ×3 (09:21→20:42)
[2024-06-02] MEDS: Albumin Human 25 % 100 ML 133.33 ML IV ×2 (09:21→11:22)
[2024-06-02 09:50] LABS: ABG Refer to POC result
[2024-06-02 09:51] LABS: ABG Base Excess -1.4 mmol/L; ABG HCO3 28 mmol/L (22-26); ABG pCO2 69 mmHg (32-45); ABG pH 7.21 (7.35-7.45); ABG pO2 90 mmHg (83-108)
[2024-06-02 10:00] LABS: D Dimer High Sensitivity 437 NG/ML
--- NOTE | 2024-06-02 10:00 | MHC.SLORD ---
Speech Language Pathology Order Status: Pt intubated, JOGGER OPERATOR available when pt is s/p extubation for formal swallow assessment as indicated.
[2024-06-02 10:13] LABS: Lactic Acid 2.6 mmol/L (0.5-2.0)
--- NOTE | 2024-06-02 10:23 | MHC.CLN ---
PT IS INTUBATED AND SEDATED DISCUSSED AT ROUNDS WITH MD TO START TF RECOMMEND PROMOTE AT MAX GOAL RATE 40ML/HR WITH 240ML FWF Q 8 HRS TO PROVIDE 960KCALS (1338KCALS WITH SEDATION, 23KCALS/KG), 60G PROTEIN, 1525ML TOTAL WATER FROM FORMULA AND FLUSHES (26ML/KG) MONITOR TOLERANCE AND LYTES SEE FILL CLINICAL NUTRITION ASSESSMENT
[2024-06-02] MEDS: Rocuronium Bromide 50 MG/5 ML VIAL 100 MG IVPUSH (10:31)
[2024-06-02] MEDS: Albuterol Sulfate 7.5 MG, Albuterol/Iprat 2.5/0.5MG 3 ML 3 ML INHALE (10:39)
[2024-06-02] MEDS: Phenylephrine HCL 20 MG in 0.9 % Sodium Chloride 250 ML 30.05 MG IVCONT ×2 (10:39→23:35)
[2024-06-02] MEDS: Acetylcysteine 10 % 400 MG/4 ML VIAL 600 MG INHALE (10:47)
--- NOTE | 2024-06-02 10:56 | PC.NURSE ---
Pt on HFNC, having a coughing fit, desatting low 70s/ high 60s. RT and Wanda Macdonald CUT OFF SAW GRADER at bedside. MANUFACTURERS AGENT called. Pt transitioned to BIPAP, Pt medicated at 0757 by VETERINARY TECHNICIAN ASSISTANT with Etomidate 20 and Rocuronium 50. Pt intubated at 0800, 23 at the lip, 7.5 tube, + colorimetry, lungs dim on the left side. Pt transferred to ICU with VETERINARY TECHNICIAN ASSISTANT, carpentry supervisor, and charge coordinator. Bedside report given to the VETERINARY TECHNICIAN ASSISTANT.
[2024-06-02 11:18] LABS: MRSA Nasal PCR NEGATIVE (Negative); SA Nasal PCR NEGATIVE (Negative)
[2024-06-02] MEDS: propofoL 1,000 MG/100 ML VIAL 23.85 MG IVCONT ×4 (11:26→23:46)
[2024-06-02 11:35] LABS: Glucose, Whole Blood 204 mg/dL (60-115)
[2024-06-02 11:49] LABS: Reflex Lactate? Lactic Acid Added
--- NOTE | 2024-06-02 12:28 | PC.RT ---
Pt was intubated on the floor for hypoxia and trans to ICU. Upon admission to ICU RT unable to vent pt sec to vent asynchrony. Pt LBS for scant sec, unable to sxn them out sec to lg thick plugs. Pt was bronched by MD with RT assist. Pt was currently on 100% fio2. 2 scopes were used as secretions were too thick to remove. MD removed copious plugs a piece at a time unable to pull them out on max suction. The procedure took 2.5 hours.
[2024-06-02 12:38] LABS: ~Lactic Acid-LAB USE ONLY 3.4 mmol/L (0.5-2.0)
[2024-06-02 12:42] LABS: Adenovirus PCR Not Detected (Not Detect.); Bordetella parapertussis PCR Not Detected (Not Detect.); Bordetella pertussis PCR Not Detected (Not Detect.); Chlamydia pneumoniae PCR Not Detected (Not Detect.); Coronavirus 229E PCR Not Detected (Not Detect.); Coronavirus HKU1 PCR Not Detected (Not Detect.); Coronavirus NL63 PCR Not Detected (Not Detect.); Coronavirus OC43 PCR Not Detected (Not Detect.); Human metapneumovirus PCR Not Detected (Not Detect.); Influenza A PCR Not Detected (Not Detect.); Influenza B PCR Not Detected (Not Detect.); Mycoplasma pneumoniae PCR Not Detected (Not Detect.); Parainfluenza 1 PCR Not Detected (Not Detect.); Parainfluenza 2 PCR Not Detected (Not Detect.); Parainfluenza 3 PCR Not Detected (Not Detect.); Parainfluenza 4 PCR Not Detected (Not Detect.); RSV PCR Not Detected (Not Detect.); Rhino/Enterovirus PCR Not Detected (Not Detect.)
[2024-06-02] MEDS: Doxycycline Monohydrate 100 MG CAPSULE PO (12:50)
[2024-06-02] MEDS: Pantoprazole Sodium 40 MG/10 ML VIAL IVPUSH (12:51)
--- NOTE | 2024-06-02 13:00 | MHC.CM.PN ---
EMR REVIEWED, PT W/HYPOXIA TRANSFERRED TO ICU PRIOR TO CM SHIFT DESAT'ING TO 60'S ON HI-FLOW, [facility], PT IS INDEP AT BASELINE AND WILL LIKELY NEED P.T. FOR DISPO ONCE IMPROVED, PT INDEP AT BASELINE, CM WILL CONT TO FOLLOW DC NEEDS.
--- NOTE | 2024-06-02 13:30 | PC.NURSE ---
Addendum entered by Mynor Tran RN 06/02/24 13:58: Report given to Simone at approx 12:00. Original Note: ICU Critical Care Nursing Note Received patient to ICU from [facility] room 475. Patient intubated during DATA TRANSCRIBER at appox 8:00am for hypoxia and respiratory distress and emergently transferred to room 254 ICU.? ICU Day #: 1 Vent Day #: 1 Neuro: Sedated with propofol initially, coughing on ETT. Still having issues with vent asynchrony after maxing out propofol. Dr Aggarwal made aware & added fentanyl drip. Titrated per RASS & for vent synchrony.? Cardiac: HR low 100?s - Sinus tach. Hypertensive upon transfer & throughout morning, but BP dropped to 60s to 70?s systolic after completion of 2nd bedside bronchoscopy - vent settings, peep up to 14 (had been 7.5). Order to start phenylephrine drip - started & titrated per MAR to keep map >65.? Resp: Intubated on [facility] floor, medicated with etomidate & macho for sedation - 7.5 ETT, at 23 cm. Patient on AC settings initially. CXR confirmed placement of ETT, viewed by Dr Aggarwal.? At approx 0910 patient started to desat on 100% FiO2. RT called to bedside. Attempted to suction & oxygen with BVM with little effect - very poor lung compliance - absent breath sounds upper right lobe, diminished, no O2sat improvement. Extreme thick secretions noted in ETT, via inline suction. Dr Aggarwal made aware - ordered 1x dose. Order to give 50 mg IVP macho - given at given per MAR with minimal effect.? 9:37 to 11:30 - Bedside bronch done twice by Dr Aggarwal with RT at bedside. Issues clearing secretions. Patient still not exchanging air well, high peek pressures - Dr Aggarwal ordered 100mg dose macho - given per MAR. Bigger bronchoscopy tube obtained and 2nd bronch done at bedside by Dr Aggarwal until approx 11:30.? After bronch, O2sat 99% - vent settings changed to AC PC - see vent assessment. Maintaining TV & MIN vol post bronchoscopy as well.? GI/: OG tube inserted - CXR confirmed placement - ok to use OG tube per Dr Aggarwal. 16 slovenian farrar inserted per MD order upon transfer to ICU. Put out over 1.1 liters from 8am to 11am - Dr Aggarwal made aware.? Endocrine: Dr Aggarwal order to start checking blood sugars Q6H? Integumentary/Musculoskeletal: Skin assessed - patient repositioned Q2H - moving extremities in between doses of paralytic.? Psychosocial (family etc.): made aware of transfer & updated throughout bronchoscopy procedure - brought to bedside after procedure and updated about plan of care by this RN & Dr Aggarwal.?Son & daughter also at bedside and updated about plan of care. Infectious Disease: On antibiotics for treatment of pneumonia. Sputum and blood cultures obtained & are pending. MRSA swab, respiratory pathogen, and urine specimens also sent and are pending results. IV lines - patient has a total of 3 periph IVs - 2 new periph IVs inserted once in ICU (see IV assessment).? Labs: Critical labs reported to Dr Aggarwal, as well as serum potassium from today - 3.2.
[2024-06-02 13:50] LABS: Influenza A H1 PCR Not Detected (Not Detect.); Influenza A H1-2009 PCR Not Detected (Not Detect.); Influenza A H3 PCR Not Detected (Not Detect.); SARS-CoV-2 PCR Not Detected (Not Detect.)
[2024-06-02 13:50] LABS: ABG Base Excess -2.4 mmol/L; ABG HCO3 20 mmol/L (22-26); ABG pCO2 28 mmHg (32-45); ABG pH 7.45 (7.35-7.45); ABG pO2 83 mmHg (83-108)
[2024-06-02 14:09] LABS: Reflex Lactate? 2 Y
[2024-06-02] MEDS: Phenylephrine HCL 20 MG in 0.9 % Sodium Chloride 250 ML 90.15 MG IVCONT ×2 (14:25→17:01)
[2024-06-02 14:58] LABS: ~Lactic Acid-LAB USE ONLY 6.2 mmol/L (0.5-2.0)
--- NOTE | 2024-06-02 16:21 | P.CONCC_ITS ---
History of Present Illness Data of Consult Service Date: 06/02/24 Primary Care Provider: GAURI Leonard HPI Reason for consult: Acute hypoxemic respiratory failure 73-year-old lady with past medical history of asthma, AFib on anticoagulation, hyperparathyroidism status post parathyroidectomy, GERD admitted to the hospital on 05/26/2024 with complaints of 1 week of shortness of breath and cough. During the course of hospitalization patient's condition continued to slowly worsen with increasing oxygen requirement later to high-flow and then OptiFlow and then to a BiPAP support and this morning patient became severely hypoxic needing emergent intubation and ventilator support so MICU was consulted. Review of Systems 2 Review of Systems: Unable to obtain as patient is intubated [facility] Past Medical History Medical History (Updated 06/02/24 @ 16:32 by Jimmy Aggarwal MD) Pneumonia Hyperparathyroidism Fatty liver Osteopenia Acid reflux disease Basal cell carcinoma Asthma HLD (hyperlipidemia) HTN (hypertension) Surgical History Surgical History H/O parathyroidectomy History of removal of both ovaries H/O section Hx of tonsillectomy H/O colonoscopy Social History Social History Household Members: Significant Other Housing: Condominium Do you presently have visiting nurse or other home services: No Alcohol intake: never Patient Tobacco Use Status: Never used Tobacco Second Hand Smoke Exposure: No Advance Directives Date on File: 01/10/24 service: No Meds Allergies Allergy/AdvReac Type Severity Reaction Status Date / Time lisinopril Allergy Severe Difficulty Verified 05/25/24 23:09 Breathing codeine Allergy Intermediate Unconscious Verified 05/25/24 23:09 Active Medications: Current Medications Acetaminophen (Acetaminophen 325 Mg Tablet) 650 mg PO Q6H PRN PRN Reason: Pain, Mild 1-3,fever,headache Amlodipine Besylate (Amlodipine Besylate 10 Mg Tablet) 10 mg PO BEDTIME [facility]; Protocol Last Admin: 06/01/24 20:16 Dose: 10 mg Apixaban (Apixaban 5 Mg Tablet) 5 mg PO BID [facility] Last Admin: 06/02/24 12:09 Dose: Not Given Doxycycline Monohydrate (Doxycycline Monohydrate 100 Mg Capsule) 100 mg PO BID [facility] Last Admin: 06/02/24 12:50 Dose: 100 mg Guaifenesin (Guaifenesin 200 Mg/10 Ml 10 Ml Liquid) 10 ml PO Q4H PRN PRN Reason: Cough Last Admin: 06/02/24 03:51 Dose: 10 ml Piperacillin Sod/Tazobactam (Sod 4.5 gm/ Sodium Chloride) 100 mls @ 200 mls/hr IV Q6H [facility] Last Infusion: 06/02/24 14:26 Dose: Infused Propofol (Diprivan) 1,000 mg in 100 mls @ 0 mls/hr IVCONT .Q0M IONA; Protocol Last Admin: 06/02/24 15:34 Dose: 50 mcg/kg/min, 23.85 mls/hr Fentanyl (Sublimaze/Ns) 1,000 mcg in 100 mls @ 0 mls/hr IVCONT .Q0M IONA; Protocol Last Titration: 06/02/24 11:29 Dose: 25 mcg/hr, 2.5 mls/hr Phenylephrine HCl 20 mg/ (Sodium Chloride) 252 mls @ 0 mls/hr IVCONT .Q0M IONA; Protocol Last Admin: 06/02/24 14:25 Dose: 1.5 mcg/kg/min, 90.15 mls/hr Loratadine (Loratadine 10 Mg Tablet) 10 mg PO DAILY [facility] Last Admin: 06/02/24 12:10 Dose: Not Given Methylprednisolone Sodium Succinate (Methylprednisolone Sod Succ 40 Mg/Ml Vial) 40 mg IVPUSH Q6H IONA Last Admin: 06/02/24 12:51 Dose: 40 mg Metoprolol Succinate (Metoprolol Succinate Er 25 Mg Tab.Er.24h) 25 mg PO DAILY [facility]; Protocol Last Admin: 06/02/24 12:10 Dose: Not Given Montelukast Sodium (Montelukast Sodium 10 Mg Tablet) 10 mg PO BEDTIME [facility] Last Admin: 06/01/24 20:16 Dose: 10 mg Naloxone HCl (Naloxone Hcl 0.4 Mg/Ml Vial) 0.2 mg IVPUSH Q2M PRN PRN Reason: Excessive sedation or RR < 8 Pt Owned Med ( Cyclosporine 0.05% Eye Emulsion) 1 each EYE-BOTH BID [facility] Last Admin: 06/02/24 15:33 Dose: Not Given Pantoprazole Sodium (Pantoprazole Sodium 40 Mg/10 Ml Vial) 40 mg IVPUSH DAILY@06 [facility] Last Admin: 06/02/24 12:51 Dose: 40 mg Sodium Chloride (0.9 % Sodium Chloride Flush 3 Ml Syringe) 3 ml IVFLUSH QSHIFT [facility] Last Admin: 06/02/24 15:33 Dose: 3 ml Home Medications ?Medication ?Instructions ?Recorded ?Confirmed ?Last Taken ?Type amlodipine 10 mg tablet 10 mg PO BEDTIME 10/12/22 05/26/24 05/25/24 History montelukast 10 mg tablet 10 mg PO BEDTIME 10/12/22 05/26/24 05/25/24 History omega 9-fsn-efe-fish oil 1,000 mg 1 cap PO DAILY 10/12/22 05/26/24 05/25/24 History (120 mg-180 mg) capsule (Fish Oil) omeprazole 20 mg capsule,delayed 20 mg PO DAILY@62910/12/22 05/26/24 05/25/24 History release albuterol sulfate 90 mcg/actuation 2 puff inhalation Q4H PRN Wheezing 10/01/23 05/26/24 01/16/24 History aerosol inhaler budesonide-formoterol HFA 160 2 puff inhalation BID 10/01/23 05/26/24 05/25/24 History mcg-4.5 mcg/actuation aerosol inhaler (Symbicort) cholecalciferol (vitamin D3) 125 125 mcg PO DAILY 10/01/23 05/26/24 05/25/24 History mcg (5,000 unit) tablet (Vitamin D3) cetirizine 10 mg tablet (Zyrtec) 10 mg PO DAILY 01/10/24 05/26/24 05/25/24 History cyclosporine 0.05 % eye drops in a 1 drp ophthalmic (eye) Q12H PRN 01/10/24 05/26/24 05/25/24 History dropperette Dry Eye(S) amoxicillin 875 mg-potassium 1 tab PO BID 05/26/24 05/26/24 05/25/24 History clavulanate 125 mg tablet azithromycin 250 mg tablet 250 mg PO DAILY 05/26/24 05/26/24 05/25/24 History coenzyme Q10 100 mg capsule 100 mg PO DAILY 05/26/24 05/26/24 05/25/24 History (CoQ-10) metoprolol succinate 25 mg 25 mg PO DAILY 05/26/24 05/26/24 05/25/24 History tablet,extended release 24 hr prednisone 10 mg tablet 40 mg PO DAILY 05/26/24 05/26/24 05/25/24 History turmeric 400 mg capsule 400 mg PO DAILY 05/26/24 05/26/24 05/25/24 History Physical Exam 2 Vital Signs: Vital Signs: Last Vital Signs Temp 98.4 F 06/02/24 16:00 Pulse 67 06/02/24 16:00 Resp 18 06/02/24 16:00 BP 128/60 06/02/24 16:00 Pulse Ox 93 06/02/24 16:00 O2 Del Method Mechanical Ventil ation 06/02/24 16:00 O2 Flow Rate 50 06/02/24 07:19 FiO2 50 06/02/24 16:00 Oxygen Flow Rate 2 05/25/24 23:08 BMI result Body Mass Index 32.1 General: acute distress, ill appearing and tired appearing Nutritional Appearance: well nourished and overweight Eyes: appearance normal, both eyes and all related structures; Alignment and Position: alignment normal and position normal Neck: No lymphadenopathy, no thyromegaly Resp: bilateral air entry equal, decreased to absent breath sounds in the left lung Cardio: Regular rate, regular rhythm; Heart sounds: S1 normal heart sound present and S2 normal heart sound present GI: soft, nontender, no guarding, no hepatosplenomegaly : bladder normal to inspection, bladder normal to palpation, no renal angle tenderness Skin: no rashes or lesions noted and elasticity normal Neuro: Sedated, paralyzed Results Labs 05/31/24 06:26 06/02/24 06:25 Labs: BMP 06/02/24 06:25 Sodium 141 Potassium 3.2 L Chloride 106 Carbon Dioxide 26 BUN 25 H Creatinine 0.72 Calcium 8.6 Microbiology Microbiology Results: Microbiology 06/02/24 11:44 Bronchial Alveo Lavage Gram Stain - Final 05/25/24 23:41 Blood - Venous Blood Culture - Final No growth after 5 days. 05/25/24 23:31 Blood - Venous Blood Culture - Final No growth after 5 days. Assessment and Plan (1) Acute hypoxemic respiratory failure: Status: Acute (2) Hypokalemia: Status: Acute (3) Pneumonia: Qualifiers: Pneumonia type: due to unspecified organism Laterality: bilateral Lung location: lower lobe of lung Qualified Code(s): J18.9 - Pneumonia, unspecified organism Status: Acute Plan Neuro: Acute encephalopathy possibly due to metabolic encephalopathy On propofol for sedation, fentanyl for analgesia needed multiple doses of rocuronium due to ventilator dyssynchrony; if she continues to need more we will put her on Nimbex drip Close neurological status monitoring in the ICU every hour Cardiac: Cardiogenic Shock: Possibly secondary to peep and positive pressure ventilation On phenylephrine support, titrate phenylephrine to keep map above 65 mm Hg Respiratory: Acute hypoxemic respiratory failure due to bilateral nonspecific pneumonia Currently on ventilator support On PRVC mode FiO2 100, PEEP 14, TV 340, RR 16, patient did not do well on PRVC mode associated with significant vent dyssynchrony and volume restrictions, she had to be Ambu bag multiple times as she was desatting, later she was switched on a pressure control mode with higher PEEP which she tended to tolerate better. She received multiple doses of rocuronium pushes due to significant vent dyssynchrony and desaturations Peak pressures and plateau pressures are under the curve Ventilator management bundle with head end elevation, aspiration precaution, chlorhexidine mouthwash, daily awakening trials, daily spontaneous breathing trials GI: We will start on tube feeds Renal: Lactic acidosis: Possibly secondary to albuterol As patient's blood pressures are okay, oxygenation is okay, no evidence of ischemia If the lactate continues to increase we will get a CTA chest abdomen and pelvis Heme: Chronic anemia, closely monitor H&H, transfuse for hemoglobin less than 7 grams/deciliter Endocrine: Blood sugars under control Sliding scale insulin as needed Infectious disease: We will send pancultures and bronchioloalveolar lavage culture Continue Zosyn, we will add Zyvox Musculoskeletal: Decubitus ulcer prevention protocol Lines: Peripheral Prophylaxis: Apixaban with held due to mucosal erosions during bronch, we will start on Lovenox tomorrow, pantoprazole Total critical care time spent is about 90 minutes on admission of this patient to critical care unit, formulating critical care plan and management, chart review, review of images,, review of labs, managing episodes of desaturations that lasted over 2 hours, sedation management, ventilator management, changing ventilator settings, close hemodynamic monitoring, vasopressor management at this time is excluding any procedural time
[2024-06-02 16:28] LABS: Basophils Absolute Auto 0.1 X10*3/uL (0.0-0.2); Basophils Percent Auto 0.4 % (0-2); Hematocrit 38.7 % (37.0-47.0); Hemoglobin 12.7 g/dl (12.0-16.0); Imm Gran Abs Auto 1.08 X10*3/uL (0.00-0.03); Imm Gran Pct Auto 3.4 % (0.0-0.4); Lymphocytes Absolute Auto 1.4 X10*3/uL (1.2-4.9); Lymphocytes Percent Auto 4.5 % (20-40); MANUAL DIFF FLAG SCAN; Mean Corpuscular HGB Conc 32.8 g/dl (31.0-35.0); Mean Corpuscular Hemoglobin 29.1 pg (27.0-33.0); Mean Corpuscular Volume 88.8 fL (80.0-98.0); Mean Platelet Volume 9.3 fL (9.4-12.3); Monocytes Percent Auto 6.4 % (2-11); Neutrophils Absolute Auto 26.9 x10*3/uL (2.0-8.3); Neutrophils Percent Auto 85.3 % (45-73); Platelet Count 498 X10*3/uL (160-400); Red Blood Count 4.36 X10*6/uL (4.20-5.50); SCAN SMEAR FLAG 1
[2024-06-02 16:30] LABS: White Blood Count 31.5 X10*3/uL (4.8-10.8)
--- NOTE | 2024-06-02 16:38 | W.PM.CCHP ---
Procedures Date of Service Date of Service: 06/02/24 Bronchoscopy Bronchoscopy Comments: Hypoxia and left upper and middle lobe collapse Consent for Procedure: Emergent-no informed consent obtained Indication: atelectasis Route: endotracheal tube Sedation/Analgesia: fentanyl Monitor: EKG and pulse oximetry Findings: Bronchoscope was passed through ET tube, thick white mucus secretions were noted starting from trachea mostly coming out of the left lung, spilling out into the right lung was very difficult to aspirate with the disposable bronchoscope. Later flexible bronchoscopy of was brought from the OR, thorough lavage was performed, lavage sample sent to the lab with improvement in oxygenation Complications: none
--- NOTE | 2024-06-02 16:43 | HE.ICUCC ---
ICU Critical Care Nursing Note ICU Day #: Vent Day #: 1 Neuro: Cardiac: Became hypotensive, mary drip started for MAP goal with positive affect Resp: Patient had brochoscopy at bedside with BAL, sputum culture sent GI/: Endocrine: Integumentary/Musculoskeletal: Psychosocial (family etc.): Infectious Disease: Patient continues to have critically elevated lactate levels, CBC sent with critical WBC. Dr Aggarwal aware Central Lines:
[2024-06-02 16:45] LABS: SLIDE REVIEW VERIFIED
[2024-06-02 17:17] LABS: Alanine Aminotransferase 53 U/L (0-31); Albumin Level 4.8 g/dL (3.5-5.0); Alkaline Phosphatase 57 U/L (39-117); Anion Gap 21 (12-20); Aspartate Amino Transferase 38 U/L (5-31); Bilirubin Total 0.7 mg/dL (0.0-1.0); Blood Urea Nitrogen 20 mg/dL (9-16); Carbon Dioxide 21 mmol/L (22-29); Chloride 106 mmol/L (96-108); Creatinine Clr Calc Pharmacy 58.7; Estimated Glomerular Filt Rate > 60; Glucose Random 170 mg/dL (60-115); Potassium 3.8 mmol/L (3.3-5.1); Sodium 144 mmol/L (135-145); Total Protein 7.1 g/dL (6.5-8.0)
[2024-06-02 18:23] LABS: Reflex Lactate? Lactic Acid Added
[2024-06-02 19:13] LABS: ~Lactic Acid-LAB USE ONLY 5.4 mmol/L (0.5-2.0)
[2024-06-02] MEDS: Phenylephrine HCL 20 MG in 0.9 % Sodium Chloride 250 ML 60.1 MG IVCONT (19:38)
[2024-06-02] MEDS: Montelukast Sodium 10 MG TABLET PO (20:40)
[2024-06-02] MEDS: CYCLOSPORINE 0.05% 1 EACH EYE-BOTH (20:41)
[2024-06-02 20:53] LABS: Reflex Lactate? 2 Y
[2024-06-02] MEDS: Doxycycline Hyclate 100 MG in 0.9 % Sodium Chloride 250 ML 166.67 MG IV (21:25)
[2024-06-02 21:32] LABS: ~Lactic Acid-LAB USE ONLY 5.1 mmol/L (0.5-2.0)
[2024-06-02] MEDS: fentaNYL citrate/NS 1,000 MCG/100 ML PLAST..BAG 5 MCG IVCONT (23:43)
[2024-06-03] VITALS (38 sets, daily range): BP systolic 95–149; BP diastolic 50–86; PULSE 54–146; RESP 15–181; TEMP 34.9–37.7; O2SAT 90–96; BMI 33.1
[2024-06-03] MEDS: methylPREDNISolone Sod Succ 40 MG/ML VIAL IVPUSH ×4 (00:51→18:19)
[2024-06-03] MEDS: propofoL 1,000 MG/100 ML VIAL 23.85 MG IVCONT ×2 (03:53→08:00)
[2024-06-03] MEDS: Piperacillin Sodium/Tazobactam 4.5 GM in 0.9 % Sodium Chloride 100 ML IV ×4 (04:35→23:26)
[2024-06-03 04:39] LABS: VBG Base Excess -0.8 mmol/L; VBG HCO3 20 mmol/L (22-26); VBG pCO2 24 mmHg; VBG pH 7.52 (7.32-7.43); VBG pO2 76 mmHg
[2024-06-03 05:08] LABS: Venous Blood Gas Refer to POC result
[2024-06-03 05:12] LABS: MANUAL DIFF FLAG NO
[2024-06-03 05:15] LABS: Basophils Percent Auto 0.2 % (0-2); Hematocrit 35.7 % (37.0-47.0); Hemoglobin 12.2 g/dl (12.0-16.0); Imm Gran Abs Auto 0.53 X10*3/uL (0.00-0.03); Imm Gran Pct Auto 2.8 % (0.0-0.4); Lymphocytes Absolute Auto 1.5 X10*3/uL (1.2-4.9); Mean Corpuscular HGB Conc 34.2 g/dl (31.0-35.0); Mean Corpuscular Hemoglobin 29.6 pg (27.0-33.0); Mean Corpuscular Volume 86.7 fL (80.0-98.0); Mean Platelet Volume 9.7 fL (9.4-12.3); Monocytes Percent Auto 5.2 % (2-11); Neutrophils Absolute Auto 16.1 x10*3/uL (2.0-8.3); Neutrophils Percent Auto 83.8 % (45-73); Platelet Count 437 X10*3/uL (160-400); Red Blood Count 4.12 X10*6/uL (4.20-5.50); Red Cell Distribution Width 13.2 % (11.0-16.0); White Blood Count 19.2 X10*3/uL (4.8-10.8)
[2024-06-03 05:35] LABS: Alanine Aminotransferase 39 U/L (0-31); Albumin Level 3.9 g/dL (3.5-5.0); Anion Gap 17 (12-20); Aspartate Amino Transferase 24 U/L (5-31); Bilirubin Total 0.5 mg/dL (0.0-1.0); Blood Urea Nitrogen 17 mg/dL (9-16); Carbon Dioxide 19 mmol/L (22-29); Chloride 108 mmol/L (96-108); Creatinine Clr Calc Pharmacy 71.1; Estimated Glomerular Filt Rate > 60; Glucose Random 236 mg/dL (60-115); Magnesium 2.4 mg/dL (1.6-2.6); Phosphorus 2.9 mg/dL (2.7-4.5); Potassium 3.5 mmol/L (3.3-5.1); Sodium 140 mmol/L (135-145)
[2024-06-03 05:44] LABS: Alkaline Phosphatase 51 U/L (39-117)
[2024-06-03] MEDS: Pantoprazole Sodium 40 MG/10 ML VIAL IVPUSH (05:53)
--- NOTE | 2024-06-03 06:23 | PC.NURSE ---
CARE ASSUMED 7PM..REMAINS INTUBATED...PCV VENT SUPPORT...PEEP WEANED FROM 12 TO 10 CM...FIO2 WEANED TO 40%SMALL THICK CREAM SECRETIONS VIA ETT..TUBE FEEDS STARTED...PROMOTE TITRATED TO GOAL OF 40 CC/HR AND H20 240ML Q8 HOURS..MUÑOZ YELLOW URINE...PROPOFOL 50 MCG/KG/MIN AND FENTANYL 50 MCG/HR...RESTFUL...NSR/S.KRISTINA... AND DAUGHTER AT BEDSIDE INITIALLY...UPDATED R/T PLAN OF CARE
[2024-06-03] MEDS: 0.9 % Sodium Chloride Flush 3 ML SYRINGE IVFLUSH ×3 (08:16→23:31)
--- NOTE | 2024-06-03 08:22 | PM.CCPN ---
Subjective Subjective Date of Service: 06/03/24 Critical Care Time (minutes): 35 Comment: Continues to be on ventilator support Improvement in oxygenation when compared to yesterday Physical Exam Vital Signs: Vital Signs: Last Vital Signs Temp 99.0 F 06/03/24 07:00 Pulse 54 06/03/24 07:00 Resp 18 06/03/24 07:00 BP 121/54 L 06/03/24 07:00 Pulse Ox 96 06/03/24 08:00 O2 Del Method Mechanical Ventil ation 06/03/24 07:00 O2 Flow Rate 50 06/02/24 07:19 FiO2 40 06/03/24 08:00 Oxygen Flow Rate 2 05/25/24 23:08 BMI result Body Mass Index 33.1 General: Elderly lady in no acute distress, tired appearing, unresponsive connected to the ventilator in the bed Nutritional Appearance: well nourished and overweight Eyes: appearance normal, both eyes and all related structures; Alignment and Position: alignment normal and position normal Neck: No lymphadenopathy, no thyromegaly Resp: bilateral air entry equal, bilateral diffuse wheeze heard Cardio: Regular rate, regular rhythm; Heart sounds: S1 normal heart sound present and S2 normal heart sound present GI: soft, nontender, no guarding, no hepatosplenomegaly : bladder normal to inspection, bladder normal to palpation, no renal angle tenderness Skin: no rashes or lesions noted and elasticity normal Neuro: Unable to do a complete neuro examination as patient is sedated, brainstem reflexes normal Objective Data Labs 06/03/24 04:23 06/03/24 04:23 Labs: Laboratory Results - last 24 hr 06/02/24 06/02/24 06/02/24 09:29 09:41 09:43 WBC RBC Hgb Hct MCV MCH MCHC RDW Plt Count MPV Immature Gran % (Auto) Neut % (Auto) Lymph % (Auto) [place] % (Auto) Eos % (Auto) Baso % (Auto) Lymph # (Auto) [place] # (Auto) Eos # (Auto) Baso # (Auto) Abs Immat Gran (auto) Absolute Neuts (auto) Absolute Nucleated RBC Nucleated RBC % (auto) Smear Tech's Comments D-Dimer High Sensitivty 437 O2 Saturation 94.0 ABG pH at Pt Temp 7.21 L ABG pCO2 at Pt Temp 69 H* ABG pO2 at Pt Temp 90 ABG HCO3 28 H ABG Base Excess (Actual) -1.4 VBG pH VBG pCO2 VBG pO2 VBG HCO3 VBG O2 Saturation VBG Base Excess Sodium Potassium Chloride Carbon Dioxide Anion Gap BUN Creatinine Estim Creat Clear Calc Estimated GFR POC Glucose Random Glucose Lactic Acid 2.6 H* Lactic Acid F/U @ 2Hr Lactic Acid F/U @ 4Hr Calcium Phosphorus Magnesium Total Bilirubin AST ALT Alkaline Phosphatase Total Protein Albumin Nasal Screen MRSA (PCR) Nasal S. aureus Screen Nasal MRSA/S.aureus Interp Respiratory Panel [place] Adenovirus (Rapid PCR) B.pert (TEM-PCR) B.parapertussis DNA PCR C. pneumoniae DNA (PCR) Coronavirus OC43 (PCR) Coronavirus HKU1 (PCR) Coronavirus 229E (PCR) Coronavirus NL63 (PCR) Human Metapneumovir PCR Influenza Type A ([facility]MON) Cancelled Influenza A (RT-PCR) Influenza A (H1) PCR Influ A (H1/09) PCR Influenza A (H3) PCR Influenza Type B ([facility]MON) Cancelled Influenza B (RT-PCR) Influenza A & B Note Cancelled M. pneumoniae (PCR) Parainfluenza 1 (PCR) Parainfluenza 2 (PCR) Parainfluenza 3 (PCR) Parainfluenza 4 (PCR) RSV (PCR) Entero/Rhino (PCR) SARS-CoV-2 RNA (RT-PCR) 06/02/24 06/02/24 06/02/24 09:46 11:32 12:06 WBC RBC Hgb Hct MCV MCH MCHC RDW Plt Count MPV Immature Gran % (Auto) Neut % (Auto) Lymph % (Auto) [place] % (Auto) Eos % (Auto) Baso % (Auto) Lymph # (Auto) [place] # (Auto) Eos # (Auto) Baso # (Auto) Abs Immat Gran (auto) Absolute Neuts (auto) Absolute Nucleated RBC Nucleated RBC % (auto) Smear Tech's Comments D-Dimer High Sensitivty O2 Saturation ABG pH at Pt Temp ABG pCO2 at Pt Temp ABG pO2 at Pt Temp ABG HCO3 ABG Base Excess (Actual) VBG pH VBG pCO2 VBG pO2 VBG HCO3 VBG O2 Saturation VBG Base Excess Sodium Potassium Chloride Carbon Dioxide Anion Gap BUN Creatinine Estim Creat Clear Calc Estimated GFR POC Glucose 204 H Random Glucose Lactic Acid Lactic Acid F/U @ 2Hr 3.4 H* Lactic Acid F/U @ 4Hr Calcium Phosphorus Magnesium Total Bilirubin AST ALT Alkaline Phosphatase Total Protein Albumin Nasal Screen MRSA (PCR) NEGATIVE Nasal S. aureus Screen NEGATIVE Nasal MRSA/S.aureus Interp SEE NOTE Respiratory Panel [place] See Note Adenovirus (Rapid PCR) Not Detected B.pert (TEM-PCR) Not Detected B.parapertussis DNA PCR Not Detected C. pneumoniae DNA (PCR) Not Detected Coronavirus OC43 (PCR) Not Detected Coronavirus HKU1 (PCR) Not Detected Coronavirus 229E (PCR) Not Detected Coronavirus NL63 (PCR) Not Detected Human Metapneumovir PCR Not Detected Influenza Type A (RAYMON) Influenza A (RT-PCR) Not Detected Influenza A (H1) PCR Not Detected Influ A (H1/09) PCR Not Detected Influenza A (H3) PCR Not Detected Influenza Type B ([facility]MON) Influenza B (RT-PCR) Not Detected Influenza A & B Note M. pneumoniae (PCR) Not Detected Parainfluenza 1 (PCR) Not Detected Parainfluenza 2 (PCR) Not Detected Parainfluenza 3 (PCR) Not Detected Parainfluenza 4 (PCR) Not Detected RSV (PCR) Not Detected Entero/Rhino (PCR) Not Detected SARS-CoV-2 RNA (RT-PCR) Not Detected 06/02/24 06/02/24 06/02/24 13:46 14:21 16:18 WBC 31.5 H* RBC 4.36 Hgb 12.7 Hct 38.7 MCV 88.8 MCH 29.1 MCHC 32.8 RDW 13.0 Plt Count 498 H MPV 9.3 L Immature Gran % (Auto) 3.4 H Neut % (Auto) 85.3 H Lymph % (Auto) 4.5 L [place] % (Auto) 6.4 Eos % (Auto) 0.0 Baso % (Auto) 0.4 Lymph # (Auto) 1.4 [place] # (Auto) 2.0 H Eos # (Auto) 0.0 Baso # (Auto) 0.1 Abs Immat Gran (auto) 1.08 H Absolute Neuts (auto) 26.9 H Absolute Nucleated RBC 0.000 Nucleated RBC % (auto) 0.0 Smear Tech's Comments VERIFIED D-Dimer High Sensitivty O2 Saturation 98.0 ABG pH at Pt Temp 7.45 ABG pCO2 at Pt Temp 28 L ABG pO2 at Pt Temp 83 ABG HCO3 20 L ABG Base Excess (Actual) -2.4 VBG pH VBG pCO2 VBG pO2 VBG HCO3 VBG O2 Saturation VBG Base Excess Sodium Potassium Chloride Carbon Dioxide Anion Gap BUN Creatinine Estim Creat Clear Calc Estimated GFR POC Glucose Random Glucose Lactic Acid 6.0 H* Lactic Acid F/U @ 2Hr Lactic Acid F/U @ 4Hr 6.2 H* Calcium Phosphorus Magnesium Total Bilirubin AST ALT Alkaline Phosphatase Total Protein Albumin Nasal Screen MRSA (PCR) Nasal S. aureus Screen Nasal MRSA/S.aureus Interp Respiratory Panel [place] Adenovirus (Rapid PCR) B.pert (TEM-PCR) B.parapertussis DNA PCR C. pneumoniae DNA (PCR) Coronavirus OC43 (PCR) Coronavirus HKU1 (PCR) Coronavirus 229E (PCR) Coronavirus NL63 (PCR) Human Metapneumovir PCR Influenza Type A ([facility]MON) Influenza A (RT-PCR) Influenza A (H1) PCR Influ A (H1/09) PCR Influenza A (H3) PCR Influenza Type B (RAYMON) Influenza B (RT-PCR) Influenza A & B Note M. pneumoniae (PCR) Parainfluenza 1 (PCR) Parainfluenza 2 (PCR) Parainfluenza 3 (PCR) Parainfluenza 4 (PCR) RSV (PCR) Entero/Rhino (PCR) SARS-CoV-2 RNA (RT-PCR) 06/02/24 06/02/24 06/02/24 16:44 21:02 Unknown WBC RBC Hgb Hct MCV MCH MCHC RDW Plt Count MPV Immature Gran % (Auto) Neut % (Auto) Lymph % (Auto) [place] % (Auto) Eos % (Auto) Baso % (Auto) Lymph # (Auto) [place] # (Auto) Eos # (Auto) Baso # (Auto) Abs Immat Gran (auto) Absolute Neuts (auto) Absolute Nucleated RBC Nucleated RBC % (auto) Smear Tech's Comments D-Dimer High Sensitivty O2 Saturation ABG pH at Pt Temp ABG pCO2 at Pt Temp ABG pO2 at Pt Temp ABG HCO3 ABG Base Excess (Actual) VBG pH VBG pCO2 VBG pO2 VBG HCO3 VBG O2 Saturation VBG Base Excess Sodium 144 Potassium 3.8 Chloride 106 Carbon Dioxide 21 L Anion Gap 21 H BUN 20 H Creatinine 0.82 Estim Creat Clear Calc 58.7 Estimated GFR > 60 POC Glucose Random Glucose 170 H Lactic Acid Lactic Acid F/U @ 2Hr 5.4 H* Lactic Acid F/U @ 4Hr 5.1 H* Calcium 9.0 Phosphorus Magnesium Total Bilirubin 0.7 AST 38 H ALT 53 H Alkaline Phosphatase 57 Total Protein 7.1 Albumin 4.8 Nasal Screen MRSA (PCR) Nasal S. aureus Screen Nasal MRSA/S.aureus Interp Respiratory Panel [place] Adenovirus (Rapid PCR) B.pert (TEM-PCR) B.parapertussis DNA PCR C. pneumoniae DNA (PCR) Coronavirus OC43 (PCR) Coronavirus HKU1 (PCR) Coronavirus 229E (PCR) Coronavirus NL63 (PCR) Human Metapneumovir PCR Influenza Type A (RAYMON) Influenza A (RT-PCR) Influenza A (H1) PCR Influ A (H1/09) PCR Influenza A (H3) PCR Influenza Type B (RAYMON) Influenza B (RT-PCR) Influenza A & B Note M. pneumoniae (PCR) Parainfluenza 1 (PCR) Parainfluenza 2 (PCR) Parainfluenza 3 (PCR) Parainfluenza 4 (PCR) RSV (PCR) Entero/Rhino (PCR) SARS-CoV-2 RNA (RT-PCR) 06/03/24 06/03/24 04:23 04:35 WBC 19.2 H RBC 4.12 L Hgb 12.2 Hct 35.7 L MCV 86.7 MCH 29.6 MCHC 34.2 RDW 13.2 Plt Count 437 H MPV 9.7 Immature Gran % (Auto) 2.8 H Neut % (Auto) 83.8 H Lymph % (Auto) 8.0 L [place] % (Auto) 5.2 Eos % (Auto) 0.0 Baso % (Auto) 0.2 Lymph # (Auto) 1.5 [place] # (Auto) 1.0 Eos # (Auto) 0.0 Baso # (Auto) 0.0 Abs Immat Gran (auto) 0.53 H Absolute Neuts (auto) 16.1 H Absolute Nucleated RBC 0.000 Nucleated RBC % (auto) 0.0 Smear Tech's Comments D-Dimer High Sensitivty O2 Saturation ABG pH at Pt Temp ABG pCO2 at Pt Temp ABG pO2 at Pt Temp ABG HCO3 ABG Base Excess (Actual) VBG pH 7.52 H VBG pCO2 24 VBG pO2 76 VBG HCO3 20 L VBG O2 Saturation 97.0 VBG Base Excess -0.8 Sodium 140 Potassium 3.5 Chloride 108 Carbon Dioxide 19 L Anion Gap 17 BUN 17 H Creatinine 0.69 Estim Creat Clear Calc 71.1 Estimated GFR > 60 POC Glucose Random Glucose 236 H Lactic Acid Lactic Acid F/U @ 2Hr Lactic Acid F/U @ 4Hr Calcium 9.0 Phosphorus 2.9 Magnesium 2.4 Total Bilirubin 0.5 AST 24 ALT 39 H Alkaline Phosphatase 51 Total Protein 6.0 L Albumin 3.9 Nasal Screen MRSA (PCR) Nasal S. aureus Screen Nasal MRSA/S.aureus Interp Respiratory Panel [place] Adenovirus (Rapid PCR) B.pert (TEM-PCR) B.parapertussis DNA PCR C. pneumoniae DNA (PCR) Coronavirus OC43 (PCR) Coronavirus HKU1 (PCR) Coronavirus 229E (PCR) Coronavirus NL63 (PCR) Human Metapneumovir PCR Influenza Type A ([place]) Influenza A (RT-PCR) Influenza A (H1) PCR Influ A (H1/09) PCR Influenza A (H3) PCR Influenza Type B (RAYMON) Influenza B (RT-PCR) Influenza A & B Note M. pneumoniae (PCR) Parainfluenza 1 (PCR) Parainfluenza 2 (PCR) Parainfluenza 3 (PCR) Parainfluenza 4 (PCR) RSV (PCR) Entero/Rhino (PCR) SARS-CoV-2 RNA (RT-PCR) Microbiology Microbiology Results: Microbiology 06/02/24 11:44 Bronchial Alveo Lavage Gram Stain - Final 05/25/24 23:41 Blood - Venous Blood Culture - Final No growth after 5 days. 05/25/24 23:31 Blood - Venous Blood Culture - Final No growth after 5 days. Progress Note: A&P Assessment and plan (1) Acute hypoxemic respiratory failure: Status: Acute (2) Bilateral atelectasis: Status: Acute (3) Pneumonia: Status: Acute (4) Hypoxia: Status: Acute (5) Hypokalemia: Status: Acute Plan Neuro: Acute encephalopathy possibly due to metabolic encephalopathy On propofol for sedation, fentanyl for analgesia; we will titrate the sedation down as tolerated to wean the patient from ventilator Close neurological status monitoring in the ICU every hour Cardiac: Cardiogenic Shock: Possibly secondary to peep and positive pressure ventilation On phenylephrine support 0.5, titrate phenylephrine to keep map above 65 mm Hg Respiratory: Acute hypoxemic respiratory failure due to bilateral nonspecific pneumonia Currently on ventilator support On pressure control mode, FiO2 40%, PC 18/8, RR [address] the patient on pressor support trials and we will see how she does Peak pressures and plateau pressures are under the curve Ventilator management bundle with head end elevation, aspiration precaution, chlorhexidine mouthwash, daily awakening trials, daily spontaneous breathing trials Acute severe asthma: Duo nebs around the clock, IV Solu-Medrol GI: on tube feeds Renal: Lactic acidosis: Possibly secondary to albuterol As patient's blood pressures are okay, oxygenation is okay, no evidence of ischemia If the lactate continues to increase we will get a CTA chest abdomen and pelvis Heme: Chronic anemia, closely monitor H&H, transfuse for hemoglobin less than 7 grams/deciliter Acute leukocytosis and thrombocytosis is possibly reactionary, leukocytosis is improving Endocrine: Blood sugars under control Sliding scale insulin as needed Infectious disease: Pending pancultures and bronchioloalveolar lavage culture Continue Zosyn, Zyvox. MRSA nares negative, we will discontinue Zyvox tomorrow as patient had significant leukocytosis and lactic acidosis yesterday. Respiratory viral panel negative, urine pneumococcal antigen, mycoplasma antibody pending Musculoskeletal: Decubitus ulcer prevention protocol Lines: Peripheral Prophylaxis: Apixaban with held due to mucosal erosions during bronch, we will switch to Lovenox, pantoprazole Quality Stroke Does the patient have a stroke diagnosis?: No VTE Prior VTE?: No VTE Risk Level:: Medical - moderate - high VTE Device Contraindication: N/A - Device Ordered VTE Drug Contraindication: Treatment Not Indicated
--- NOTE | 2024-06-03 08:50 | MHC.SLORD ---
Speech Language Pathology Order Status: Pt remains intubated & vented. FENDER REPAIRER to assess swallow 24+ hours s/p extubation.
[2024-06-03] MEDS: Doxycycline Hyclate 100 MG in 0.9 % Sodium Chloride 250 ML 166.67 MG IV ×2 (09:03→21:30)
[2024-06-03] MEDS: Enoxaparin Sodium 80 MG/0.8 ML SYRINGE SUBCUT ×2 (09:03→21:32)
[2024-06-03] MEDS: CYCLOSPORINE 0.05% 1 EACH EYE-BOTH ×2 (09:06→21:32)
[2024-06-03 09:42] LABS: INTERNATIONAL NORM RATIO 1.1 (0.9-1.1); Prothrombin Time 12.4 SEC (10.9-12.4)
[2024-06-03] MEDS: Amiodarone/Dextrose 150 MG/100 ML PLAST..BAG 600 MG IV ×2 (13:06→14:49)
[2024-06-03] MEDS: dilTIAZem HCL 50 MG/10 ML VIAL 15 MG IVPUSH (13:51)
--- NOTE | 2024-06-03 14:44 | MHC.CM.NN ---
Pt extubated today and is currently on high flow O2. Pt resides w/spouse and was independent prior to admission. CM to follow for finalization of d/c needs
[2024-06-03] MEDS: dilTIAZem HCL 125 MG in 0.9 % Sodium Chloride 100 ML 10 MG IVCONT (16:47)
--- NOTE | 2024-06-03 17:42 | PC.NURSE ---
Assumed care at 0700 - patient intubated and sedated - successfully extubated at 1320 to [facility]. Patient A&O x3, following commands. HR maintaining 120-150's, afib - asymptomatic - MD notified - medicated per MAY - HR currently maintaining 110's on Cardizem gtt. Patient OOB to chair per MD order at 1700 - standby assist. Remains NPO. Family at bedside. Care ongoing.
[2024-06-03 21:55] LABS: Alanine Aminotransferase 38 U/L (0-31); Albumin Level 4.1 g/dL (3.5-5.0); Alkaline Phosphatase 55 U/L (39-117); Anion Gap 14 (12-20); Aspartate Amino Transferase 18 U/L (5-31); Bilirubin Total 0.6 mg/dL (0.0-1.0); Blood Urea Nitrogen 23 mg/dL (9-16); Calcium 9.2 mg/dL (8.4-10.2); Carbon Dioxide 23 mmol/L (22-29); Chloride 112 mmol/L (96-108); Creatinine Clr Calc Pharmacy 66.2; Estimated Glomerular Filt Rate > 60; Glucose Random 173 mg/dL (60-115); Potassium 3.5 mmol/L (3.3-5.1); Sodium 145 mmol/L (135-145); Total Protein 6.3 g/dL (6.5-8.0)
[2024-06-04] VITALS (32 sets, daily range): BP systolic 108–135; BP diastolic 49–82; PULSE 58–93; RESP 15–25; TEMP 34.9–37.4; O2SAT 88–93; BMI 34.8
[2024-06-04] MEDS: dilTIAZem HCL 125 MG in 0.9 % Sodium Chloride 100 ML 10 MG IVCONT (00:03)
[2024-06-04] MEDS: methylPREDNISolone Sod Succ 40 MG/ML VIAL IVPUSH ×3 (00:04→20:54)
--- NOTE | 2024-06-04 04:17 | PC.NURSE ---
CARE ASSUMED 7PM...OOB IN RECLINER AT 7PM...ALERT..ORIENTED X3..SPEECH CLEAR..HI-SHARON CANNULA 40 L/M AND 55% FIO2 ..DENIED SOB...HARSH COUGHT..RAISING THICK CREAM SECRETIONS..INITIALLY ATRIAL FIB WITH RVR 5:30-7PM THEN CONVERTED TO NSR HR 70'S-80'S...CARDIZEM DRIP 15 MG/HR AT 7PM...CARDIZED DRIP WEANED OVERNIGHT TO 3 MG/HR..REMAINS NSR HR 60'S-70'S...DENIES DISCOMFORT...REMAINS NPO OVERNIGHT FOR ? OF ASPIRATION..TO RE-EVALUATE IN AM..PATIENT AWARE..SELF MOUTH CARE BY PATIENT...PREVIOUSLY BACK TO BED 9:30PM WITH STEADY GAIT PER REQUEST...RESTFUL OVERNIGHT..REMAINS ALERT..MENTATING APPROPRIATELY THIS AM
[2024-06-04 04:47] LABS: VBG Base Excess 3.6 mmol/L; VBG HCO3 25 mmol/L (22-26); VBG pCO2 28 mmHg; VBG pH 7.55 (7.32-7.43); VBG pO2 69 mmHg
[2024-06-04] MEDS: Piperacillin Sodium/Tazobactam 4.5 GM in 0.9 % Sodium Chloride 100 ML IV ×4 (04:47→23:37)
[2024-06-04 04:48] LABS: Venous Blood Gas Refer to POC result
[2024-06-04 05:12] LABS: MANUAL DIFF FLAG NO
[2024-06-04 05:14] LABS: Basophils Percent Auto 0.1 % (0-2); Hematocrit 35.5 % (37.0-47.0); Imm Gran Pct Auto 1.7 % (0.0-0.4); Lymphocytes Absolute Auto 1.3 X10*3/uL (1.2-4.9); Lymphocytes Percent Auto 7.4 % (20-40); Mean Corpuscular HGB Conc 33.8 g/dl (31.0-35.0); Mean Corpuscular Hemoglobin 29.3 pg (27.0-33.0); Mean Corpuscular Volume 86.6 fL (80.0-98.0); Mean Platelet Volume 9.5 fL (9.4-12.3); Monocytes Absolute Auto 0.8 X10*3/uL (0.1-1.2); Monocytes Percent Auto 4.7 % (2-11); Neutrophils Absolute Auto 15.2 x10*3/uL (2.0-8.3); Neutrophils Percent Auto 86.1 % (45-73); Platelet Count 346 X10*3/uL (160-400); Red Cell Distribution Width 13.4 % (11.0-16.0); White Blood Count 17.6 X10*3/uL (4.8-10.8)
[2024-06-04] MEDS: Pantoprazole Sodium 40 MG/10 ML VIAL IVPUSH (05:19)
[2024-06-04 05:32] LABS: Alanine Aminotransferase 29 U/L (0-31); Albumin Level 3.6 g/dL (3.5-5.0); Anion Gap 13 (12-20); Aspartate Amino Transferase 18 U/L (5-31); Bilirubin Total 0.5 mg/dL (0.0-1.0); Blood Urea Nitrogen 28 mg/dL (9-16); Calcium 8.8 mg/dL (8.4-10.2); Carbon Dioxide 23 mmol/L (22-29); Chloride 113 mmol/L (96-108); Creatinine Clr Calc Pharmacy 70.8; Estimated Glomerular Filt Rate > 60; Glucose Random 171 mg/dL (60-115); Magnesium 2.6 mg/dL (1.6-2.6); Phosphorus 3.7 mg/dL (2.7-4.5); Potassium 3.6 mmol/L (3.3-5.1); Sodium 145 mmol/L (135-145); Total Protein 5.9 g/dL (6.5-8.0)
[2024-06-04 05:37] LABS: Alkaline Phosphatase 52 U/L (39-117)
[2024-06-04] MEDS: 0.9 % Sodium Chloride Flush 3 ML SYRINGE IVFLUSH ×3 (08:04→23:38)
[2024-06-04] MEDS: Doxycycline Hyclate 100 MG in 0.9 % Sodium Chloride 250 ML 166.67 MG IV ×2 (08:05→21:05)
[2024-06-04] MEDS: Enoxaparin Sodium 80 MG/0.8 ML SYRINGE SUBCUT ×2 (08:07→21:06)
[2024-06-04] MEDS: CYCLOSPORINE 0.05% 1 EACH EYE-BOTH ×2 (08:07→21:12)
--- NOTE | 2024-06-04 08:32 | PM.CCPN ---
Subjective Subjective Date of Service: 06/04/24 Interval History: Extubated yesterday, tolerating liberation from ventilator okay. Currently on high-flow oxygen Mobilized to chair Critical Care Time (minutes): 35 Physical Exam Vital Signs: Vital Signs: Last Vital Signs Temp 99.0 F 06/04/24 08:00 Pulse 84 06/04/24 08:00 Resp 25 H 06/04/24 08:00 BP 127/68 06/04/24 08:00 Pulse Ox 89 L 06/04/24 08:00 O2 Del Method High Flow Nasal C annula 06/04/24 08:00 O2 Flow Rate 40 06/04/24 08:00 FiO2 55 06/04/24 08:02 Oxygen Flow Rate 2 05/25/24 23:08 BMI result Body Mass Index 34.8 General: In mild acute distress, tired appearing , sitting in the chair, mildly dyspneic Nutritional Appearance: well nourished and overweight Eyes: appearance normal, both eyes and all related structures; Alignment and Position: alignment normal and position normal Neck: No lymphadenopathy, no thyromegaly Resp: bilateral air entry equal, occasional wheeze heard Cardio: Regular rate, regular rhythm; Heart sounds: S1 normal heart sound present and S2 normal heart sound present GI: soft, nontender, no guarding, no hepatosplenomegaly : bladder normal to inspection, bladder normal to palpation, no renal angle tenderness Skin: no rashes or lesions noted and elasticity normal Neuro: oriented to person, oriented to place, oriented to time and moves all extremities Objective Data Labs 06/04/24 04:35 06/04/24 04:35 Labs: Laboratory Results - last 24 hr 06/03/24 06/03/24 06/04/24 09:25 21:19 04:35 WBC 17.6 H RBC 4.10 L Hgb 12.0 Hct 35.5 L MCV 86.6 MCH 29.3 MCHC 33.8 RDW 13.4 Plt Count 346 MPV 9.5 Immature Gran % (Auto) 1.7 H Neut % (Auto) 86.1 H Lymph % (Auto) 7.4 L [place] % (Auto) 4.7 Eos % (Auto) 0.0 Baso % (Auto) 0.1 Lymph # (Auto) 1.3 [place] # (Auto) 0.8 Eos # (Auto) 0.0 Baso # (Auto) 0.0 Abs Immat Gran (auto) 0.30 H Absolute Neuts (auto) 15.2 H Absolute Nucleated RBC 0.000 Nucleated RBC % (auto) 0.0 PT 12.4 INR 1.1 VBG pH VBG pCO2 VBG pO2 VBG HCO3 VBG O2 Saturation VBG Base Excess Sodium 145 145 Potassium 3.5 3.6 Chloride 112 H 113 H Carbon Dioxide 23 23 Anion Gap 14 13 BUN 23 H 28 H Creatinine 0.74 0.71 Estim Creat Clear Calc 66.2 70.8 Estimated GFR > 60 > 60 Random Glucose 173 H 171 H Calcium 9.2 8.8 Phosphorus 3.7 Magnesium 2.6 Total Bilirubin 0.6 0.5 AST 18 18 ALT 38 H 29 Alkaline Phosphatase 55 52 Total Protein 6.3 L 5.9 L Albumin 4.1 3.6 06/04/24 04:41 WBC RBC Hgb Hct MCV MCH MCHC RDW Plt Count MPV Immature Gran % (Auto) Neut % (Auto) Lymph % (Auto) [place] % (Auto) Eos % (Auto) Baso % (Auto) Lymph # (Auto) [place] # (Auto) Eos # (Auto) Baso # (Auto) Abs Immat Gran (auto) Absolute Neuts (auto) Absolute Nucleated RBC Nucleated RBC % (auto) PT INR VBG pH 7.55 H VBG pCO2 28 VBG pO2 69 VBG HCO3 25 VBG O2 Saturation 96.0 VBG Base Excess 3.6 Sodium Potassium Chloride Carbon Dioxide Anion Gap BUN Creatinine Estim Creat Clear Calc Estimated GFR Random Glucose Calcium Phosphorus Magnesium Total Bilirubin AST ALT Alkaline Phosphatase Total Protein Albumin Microbiology Microbiology Results: Microbiology 06/02/24 09:42 Blood - Venous Blood Culture - Preliminary No growth after 24 hours. 06/02/24 09:42 Blood - Venous Blood Culture - Preliminary No growth after 24 hours. 06/02/24 11:44 Bronchial Alveo Lavage Gram Stain - Final 06/02/24 11:44 Bronchial Alveo Lavage - Preliminary No growth to date. 05/25/24 23:41 Blood - Venous Blood Culture - Final No growth after 5 days. 05/25/24 23:31 Blood - Venous Blood Culture - Final No growth after 5 days. Progress Note: A&P Assessment and plan (1) Hypokalemia: Status: Acute (2) Hypoxia: Status: Acute (3) Pneumonia: Status: Acute (4) Bilateral atelectasis: Status: Acute (5) Acute hypoxemic respiratory failure: Status: Acute Plan Acute hypoxemic respiratory failure due to bilateral nonspecific pneumonia along with collapse of left upper lobe secondary to airway obstruction from thick secretions extubated yesterday currently on 55%, 40L oxygen high flow. Incentive spirometry, acapella and chest PT. mucomyst nebulization for breaking the secretions Bronchoscopy and lavage was performed to clear the airway, secretions were very difficult to aspirate. Cultures remained negative. 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 Respiratory viral panel negative, serum mycoplasma, urine Legionella and pneumococcal antigen pending; MRSA nares negative. Continue Zosyn, and doxycycline. Acute severe asthma: Duo nebs around the clock, IV Solu-Medrol, will decrease dose today Paroxysmal Atrial fibrillation with RVR: Anticoagulation switched to Lovenox which can be switched back to apixaban upon discharge Received multiple amiodarone boluses and was on diltiazem drip for rate control yesterday; currently converted back to sinus We will restart her home medications Acute [place]ocytosis[place] [id number] [place] [id number]. Thrombocytosis is also improving GI: oral feeds Musculoskeletal: Decubitus ulcer prevention protocol Lines: Peripheral Small out Prophylaxis: Lovenox, pantoprazole Quality Stroke Does the patient have a stroke diagnosis?: No VTE Prior VTE?: No VTE Risk Level:: Medical - moderate - high VTE Device Contraindication: N/A - Device Ordered VTE Drug Contraindication: Treatment Not Indicated
--- NOTE | 2024-06-04 10:09 | MHC.CLN ---
F/U PT EXTUBATED YESTERDAY DISCUSSED AT ROUNDS WITH PT PREVIOUSLY RECEIVED TF NOW NPO PENDING SWALLOW EVAL WHEN DIET TO ADVANCE, RECOMMEND 2GM NA DIET IN ADDITION TO SPOUTING INSTALLER RECOMMENDATIONS FOLLOWING FOR DIET ADVANCEMENT
[2024-06-04] MEDS: levalbuterol HCL 1.25 MG/3 ML VIAL.NEB INHALE ×3 (11:32→21:06)
[2024-06-04] MEDS: Metoprolol Succinate ER 25 MG TAB.ER.24H PO (11:54)
--- NOTE | 2024-06-04 14:33 | MHC.CM.PN ---
Pt on high flow post extubation: A&O x 3, Cardene gtt d/c'd. Plans are to titrate off of high flow in preparation of transfer to the floor. Pt from home w/spouse but may need services or placement. CM to follow for medical stability / finalization of d/c planning needs
--- NOTE | 2024-06-04 15:26 | PC.RT ---
Pt requiring aggresive pulm toilet. AM svn with 4ml Mucomyst with xop[enex given, uriah well f/b gentle CPT, 4 min R/4 min L uriah well. IS was done x 10 f/b aerobika x 10 breaths as well. Pt able to exp lg thick dark bloody sec.
--- NOTE | 2024-06-04 15:29 | MHC.SL.SWA ---
Speech Pathologist Impression: PMH of dysphagia, unknown etiology or severity. MBSS pending Risk of Aspiration Due to: Medically Fragile History of Pneumonia Hx of Recent Extubation Weak Cough Weak Voice Dysphasia Diet Status: Liquid Consistency and Strategies for Safe Swallow: Liquid Intake Recommendation: Thin Liquid Intake Strategies: Small Sips Solid Food Consistency: Dietary Recommendations: Pureed (NDD1) Additional Modifications to Solid Foods: Oral Medication Intake: Crushed with Puree Please contact the pharmacy regarding appropriate crushable or liquid drug formulations that are available whenever modified delivery is recommended. Compensatory Strategies and Precautions to be Taken for Safe Swallow: Sitting Upright (90 deg) Small Bites and Sips Alternate Liquids/Solids Rate of Ingestion Change Supervision While Eating and Drinking for Safe Swallow: Intermittent Supervision Foods to Avoid: Swallowing Recommended Treatments: Compens. Strategy Educat. Recommendation for Speech: Modified Barium Swallow Study - Inpatient Comment: Pt repositioned upright in bed, alert and conversant. Pt voice audible and clear, but weak s/p extubation. Pt tolerated sips of thins and tsps of puree without overt s/s of aspiration; oropharyngeal coordination WNL. Pt remains at risk for aspiration d/t history of dysphagia of unknown etiology and recent extubation. PATTERNATOR provided education and review of [facility] diet/POC while inpatient. Pt and verbalize understanding and agree. MD and RN consulted. Frequency/Duration: Date Range for Service Req: Timeline to reassess: Quality Compliance Consultant Clinican/Clinical Fellow: No Supervisory Statement: I have reviewed and agree with the student/clinical fellow's documentation: N/A Speech Language Pathologist: Sisi Hudson M.S., CCC-PATTERNATOR
--- NOTE | 2024-06-04 17:13 | PC.NURSE ---
patient farrar catheter removed at 1300... due to void 1900.... patient able to void 250ml at 1714
[2024-06-04 19:23] LABS: Strep Pneumo Ag urine Not Detected (Not Detected)
--- NOTE | 2024-06-04 19:27 | PC.NURSE ---
assumed care at 0700 on 06/04/24. patient on HFNC at 40L 55% with no c/o of dyspnea or SOB. lungs clear on initial assessment, see full HTT. patient able to manage secretions from productive cough with Yanker. patient was a stand by assist to turn and pivot to recliner and commode today. MUÑOZ removed 1300. voided ~250 at approx. 1700. additionally passed swallow evaluation with speech therapy today, recommended pureed food with thin fluids, straws okayed. mucolytic added to medications. barium swallow ordered by MD, time of test still undetermined. patient stable vitals with no complaints or questions at change of shift. sitting in recliner with in room. handed off at 1900 on 06/04/24.
[2024-06-04] MEDS: Acetylcysteine 10 % 400 MG/4 ML VIAL INHALE (21:06)
[2024-06-04] MEDS: Montelukast Sodium 10 MG TABLET PO (21:06)
[2024-06-05] VITALS (30 sets, daily range): BP systolic 98–137; BP diastolic 51–82; PULSE 55–86; RESP 12–25; TEMP 34.2–36.8; O2SAT 88–97; BMI 31.9
[2024-06-05] MEDS: levalbuterol HCL 1.25 MG/3 ML VIAL.NEB INHALE ×6 (00:57→18:59)
[2024-06-05 04:36] LABS: VBG Base Excess 4.4 mmol/L; VBG HCO3 25 mmol/L (22-26); VBG pCO2 28 mmHg; VBG pH 7.56 (7.32-7.43); VBG pO2 62 mmHg
[2024-06-05 04:39] LABS: Venous Blood Gas Refer to POC result
[2024-06-05 05:05] LABS: MANUAL DIFF FLAG NO
[2024-06-05 05:08] LABS: Basophils Percent Auto 0.1 % (0-2); Eosinophils Percent Auto 0.1 % (0-4); Hematocrit 34.5 % (37.0-47.0); Hemoglobin 11.8 g/dl (12.0-16.0); Imm Gran Abs Auto 0.31 X10*3/uL (0.00-0.03); Imm Gran Pct Auto 2.1 % (0.0-0.4); Lymphocytes Absolute Auto 1.2 X10*3/uL (1.2-4.9); Lymphocytes Percent Auto 7.8 % (20-40); Mean Corpuscular HGB Conc 34.2 g/dl (31.0-35.0); Mean Corpuscular Hemoglobin 29.5 pg (27.0-33.0); Mean Corpuscular Volume 86.3 fL (80.0-98.0); Mean Platelet Volume 9.7 fL (9.4-12.3); Monocytes Absolute Auto 0.6 X10*3/uL (0.1-1.2); Monocytes Percent Auto 3.8 % (2-11); Neutrophils Absolute Auto 12.7 x10*3/uL (2.0-8.3); Neutrophils Percent Auto 86.1 % (45-73); Platelet Count 318 X10*3/uL (160-400); Red Cell Distribution Width 13.3 % (11.0-16.0); White Blood Count 14.8 X10*3/uL (4.8-10.8)
[2024-06-05 05:27] LABS: Alanine Aminotransferase 27 U/L (0-31); Albumin Level 3.6 g/dL (3.5-5.0); Anion Gap 14 (12-20); Aspartate Amino Transferase 17 U/L (5-31); Bilirubin Total 0.6 mg/dL (0.0-1.0); Blood Urea Nitrogen 29 mg/dL (9-16); Calcium 8.9 mg/dL (8.4-10.2); Carbon Dioxide 24 mmol/L (22-29); Chloride 110 mmol/L (96-108); Creatinine Clr Calc Pharmacy 75.1; Estimated Glomerular Filt Rate > 60; Glucose Random 179 mg/dL (60-115); Potassium 3.6 mmol/L (3.3-5.1); Sodium 144 mmol/L (135-145); Total Protein 5.8 g/dL (6.5-8.0)
[2024-06-05 05:29] LABS: Alkaline Phosphatase 45 U/L (39-117)
[2024-06-05] MEDS: Pantoprazole Sodium 40 MG/10 ML VIAL IVPUSH (05:46)
[2024-06-05] MEDS: Piperacillin Sodium/Tazobactam 4.5 GM in 0.9 % Sodium Chloride 100 ML IV ×4 (05:48→23:11)
[2024-06-05 06:08] LABS: Legionella Ag Urine Not Detected (Not Detected)
--- NOTE | 2024-06-05 06:10 | PC.NURSE ---
Critical Care Nursing Note? assumed care of patient at 1900 Neuro:? alert and oriented Cardiac: sinus rhythm Resp: HiFlo, lung sounds diminished GI/:? bedside commode ID:? [email or web address], doxycycline Plan moving forward:wean supplemental oxygen?
[2024-06-05] MEDS: Acetylcysteine 10 % 400 MG/4 ML VIAL INHALE ×2 (07:46→18:59)
[2024-06-05] MEDS: Doxycycline Hyclate 100 MG in 0.9 % Sodium Chloride 250 ML 166.67 MG IV ×2 (08:19→20:56)
[2024-06-05] MEDS: Enoxaparin Sodium 80 MG/0.8 ML SYRINGE SUBCUT ×2 (08:19→20:50)
[2024-06-05] MEDS: methylPREDNISolone Sod Succ 40 MG/ML VIAL IVPUSH (08:19)
[2024-06-05] MEDS: 0.9 % Sodium Chloride Flush 3 ML SYRINGE IVFLUSH ×3 (08:19→21:02)
[2024-06-05] MEDS: CYCLOSPORINE 0.05% 1 EACH EYE-BOTH ×2 (08:20→21:01)
[2024-06-05] MEDS: Metoprolol Succinate ER 25 MG TAB.ER.24H PO ×2 (08:20→09:25)
--- NOTE | 2024-06-05 08:27 | PM.CCPN ---
Subjective Subjective Date of Service: 06/05/24 Interval History: Extubated 2 days ago, stable on high-flow oxygen 55%, 40 L Critical Care Time (minutes): 35 Physical Exam Vital Signs: Vital Signs: Last Vital Signs Temp 98.3 F 06/05/24 08:00 Pulse 73 06/05/24 08:20 Resp 18 06/05/24 08:00 BP 122/61 06/05/24 08:20 Pulse Ox 89 L 06/05/24 08:00 O2 Del Method High Flow Nasal C annula 06/05/24 08:00 O2 Flow Rate 40 06/05/24 08:00 FiO2 55 06/05/24 08:00 Oxygen Flow Rate 2 05/25/24 23:08 BMI result Body Mass Index 31.9 General: In very mild acute distress, ill appearing and tired appearing Nutritional Appearance: well nourished and overweight Eyes: appearance normal, both eyes and all related structures; Alignment and Position: alignment normal and position normal Neck: No lymphadenopathy, no thyromegaly Resp: bilateral air entry equal, occasional wheeze heard, decreased breath sounds in the left lung areas Cardio: Regular rate, regular rhythm; Heart sounds: S1 normal heart sound present and S2 normal heart sound present GI: soft, nontender, no guarding, no hepatosplenomegaly : bladder normal to inspection, bladder normal to palpation, no renal angle tenderness Skin: no rashes or lesions noted and elasticity normal Neuro: oriented to person, oriented to place, oriented to time and moves all extremities Objective Data Labs 06/05/24 04:30 06/05/24 04:30 Labs: Laboratory Results - last 24 hr 06/02/24 06/05/24 06/05/24 09:29 04:30 04:31 WBC 14.8 H RBC 4.00 L Hgb 11.8 L Hct 34.5 L MCV 86.3 MCH 29.5 MCHC 34.2 RDW 13.3 Plt Count 318 MPV 9.7 Immature Gran % (Auto) 2.1 H Neut % (Auto) 86.1 H Lymph % (Auto) 7.8 L K[place] % (Auto) 3.8 Eos % (Auto) 0.1 Baso % (Auto) 0.1 Lymph # (Auto) 1.2 [place] # (Auto) 0.6 Eos # (Auto) 0.0 Baso # (Auto) 0.0 Abs Immat Gran (auto) 0.31 H Absolute Neuts (auto) 12.7 H Absolute Nucleated RBC 0.000 Nucleated RBC % (auto) 0.0 VBG pH 7.56 H VBG pCO2 28 VBG pO2 62 VBG HCO3 25 VBG O2 Saturation 92.0 VBG Base Excess 4.4 Sodium 144 Potassium 3.6 Chloride 110 H Carbon Dioxide 24 Anion Gap 14 BUN 29 H Creatinine 0.67 Estim Creat Clear Calc 75.1 Estimated GFR > 60 Random Glucose 179 H Calcium 8.9 Total Bilirubin 0.6 AST 17 ALT 27 Alkaline Phosphatase 45 Total Protein 5.8 L Albumin 3.6 Ur L.pneumophila Ag Not Detected Ur Strep pneumoniae Ag Not Detected Microbiology Microbiology Results: Microbiology 06/02/24 09:42 Blood - Venous Blood Culture - Preliminary No growth after 48 hours. 06/02/24 09:42 Blood - Venous Blood Culture - Preliminary No growth after 48 hours. 06/02/24 11:44 Bronchial Alveo Lavage Gram Stain - Final 06/02/24 11:44 Bronchial Alveo Lavage - Final No growth after 2 days 05/25/24 23:41 Blood - Venous Blood Culture - Final No growth after 5 days. 05/25/24 23:31 Blood - Venous Blood Culture - Final No growth after 5 days. Progress Note: A&P Assessment and plan (1) Hypoxia: Status: Acute (2) Pneumonia: Status: Acute (3) Bilateral atelectasis: Status: Acute (4) Acute hypoxemic respiratory failure: Status: Acute Plan Acute hypoxemic respiratory failure due to bilateral nonspecific pneumonia along with collapse of left upper lobe secondary to airway obstruction from thick secretions extubated yesterday currently on 55%, 40L oxygen high flow. Continue aggressive Incentive spirometry, acapella and chest PT. Mucomyst nebulization for breaking the secretions Bronchoscopy and lavage was performed to clear the airway, secretions were very difficult to aspirate. Cultures remained negative. 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 Respiratory viral panel negative, serum mycoplasma pending, urine Legionella and pneumococcal antigen negative; MRSA nares negative. Continue Zosyn, and doxycycline. Acute severe asthma: Duo nebs around the clock, IV Solu-Medrol, will decrease dose to daily today Paroxysmal Atrial fibrillation with RVR: Anticoagulation switched to Lovenox which can be switched back to apixaban upon discharge Received multiple amiodarone boluses and was on diltiazem drip for rate control yesterday; currently converted back to sinus We will increase the dose of metoprolol to 50 mg and hold off on amlodipine for now Acute leukocytosis: Improving, down to 14.5k Thrombocytosis is also improving GI: oral feeds Musculoskeletal: Decubitus ulcer prevention protocol Lines: Peripheral Small out Prophylaxis: Lovenox, pantoprazole Quality Stroke Does the patient have a stroke diagnosis?: No VTE Prior VTE?: No VTE Risk Level:: Medical - moderate - high VTE Device Contraindication: N/A - Device Ordered VTE Drug Contraindication: Treatment Not Indicated
--- NOTE | 2024-06-05 12:41 | MHC.CM.PN ---
Pt remains in ICU on high flow O2: RT to change pt to a [place] in preparation of transfer to the medical floor likely in the next 24 - 48 hours. Pt from home w/spouse: will refer to [facility] for possible O2 needs. CM to follow.
--- NOTE | 2024-06-05 14:20 | MHC.SL.SWA ---
Speech Pathologist Impression: Risk of Aspiration Due to: Medically Fragile History of Pneumonia Hx of Recent Extubation Weak Cough Weak Voice Dysphasia Diet Status: Liquid Consistency and Strategies for Safe Swallow: Liquid Intake Recommendation: Thin Liquid Intake Strategies: Small Sips No Straws Solid Food Consistency: Dietary Recommendations: Pureed (NDD1) Additional Modifications to Solid Foods: Oral Medication Intake: Crushed with Puree Please contact the pharmacy regarding appropriate crushable or liquid drug formulations that are available whenever modified delivery is recommended. Compensatory Strategies and Precautions to be Taken for Safe Swallow: Sitting Upright (90 deg) No Straw Liquids from Cup Small Bites and Sips Alternate Liquids/Solids Supervision While Eating and Drinking for Safe Swallow: Intermittent Supervision Foods to Avoid: Swallowing Recommended Treatments: Compens. Strategy Educat. Recommendation for Speech: Modified Barium Swallow Study - Inpatient Comment: Patient seen on this day to educate and advise about referral for MBSS evaluation. Patient is currently on High Flow NC, cannot be assessed by procedure until weaned to decreased flow. Described procedure to patient and family who are in agreement, when ready for assessment. CONTINUOUS WELD PIPE MILL SUPERVISOR further reported this to MD, advising that procedure will be scheduled when patient can be weaned from High Flow. Patient is currently tolerating diet of Puree and thin liquids. CONTINUOUS WELD PIPE MILL SUPERVISOR will continue to follow. Frequency/Duration: Date Range for Service Req: Timeline to reassess: Drawing Supervisor Clinican/Clinical Fellow: No Supervisory Statement: I have reviewed and agree with the student/clinical fellow's documentation: N/A Speech Language Pathologist: Liz Pearce M.A., [facility]CONTINUOUS WELD PIPE MILL SUPERVISOR
--- NOTE | 2024-06-05 16:15 | PM.EVENT ---
Event Note Date of Service: 06/05/24 Event Note: This is a 73-year-old female with a past medical history of HTN, HLD, hyperparathyroidism status post parathyroidectomy, asthma, GERD, AFib on Eliquis who presented to the hospital with a chief complaint of cough and shortness of breath found to have PNA with acute hypoxic respiratory failure initially requiring high-flow supplemental oxygen, on June 02 she decompensated requiring intubation and was transferred to the ICU. She was extubated June 03 and has been on high-flow since. Bronchoscopy on June 02 showing significant thick white secretions. Still on high flow, downgraded back to medical floor on 06/05 Acute hypoxic respiratory failure d/t b/l PNA, atelectasis and high suspicion for aspiration CTA negative for PE. Echocardiogram normal, BNP low. RPP negative Ceftriaxone and Doxy, started 05/26--> ceftriaxone changed to Zosyn 05/28 seen by speech, cleared for regular diet, no overt aspiration incentive spirometry Blood cultures negative to date repeat CT scan 05/30 with worsening infiltrates and concern for aspiration h/o aspergillus; not likely playing a role per pulm in ICU: Cultures remained negative. 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 serum mycoplasma pending, urine Legionella and pneumococcal antigen negative; MRSA nares negative. Continue Zosyn, and doxycycline, solu-medrol continue mucomyst Paroxysmal Atrial fibrillation with RVR: Anticoagulation switched to Lovenox which can be switched back to apixaban upon discharge Received multiple amiodarone boluses and was on diltiazem drip for rate control yesterday; currently converted back to sinus We will increase the dose of metoprolol to 50 mg and hold off on amlodipine for now Time Spent With Patient Time: Total time managing care of this patient today ____ minutes.
[2024-06-05 16:59] LABS: Mycoplasma Pneumoniae - IgG 1.52 (<=0.90); Mycoplasma Pneumoniae - IgM 389 U/mL (<770)
[2024-06-05] MEDS: Montelukast Sodium 10 MG TABLET PO (20:50)
[2024-06-06] VITALS (14 sets, daily range): BP systolic 116–145; BP diastolic 57–71; PULSE 55–89; RESP 16–20; TEMP 36.3–36.8; O2SAT 90–95
[2024-06-06] MEDS: levalbuterol HCL 1.25 MG/3 ML VIAL.NEB INHALE ×6 (01:05→18:59)
[2024-06-06 05:15] LABS: MANUAL DIFF FLAG NO
[2024-06-06 05:17] LABS: Basophils Percent Auto 0.1 % (0-2); Hematocrit 35.2 % (37.0-47.0); Hemoglobin 12.4 g/dl (12.0-16.0); Imm Gran Abs Auto 0.39 X10*3/uL (0.00-0.03); Imm Gran Pct Auto 2.5 % (0.0-0.4); Lymphocytes Absolute Auto 1.9 X10*3/uL (1.2-4.9); Lymphocytes Percent Auto 12.6 % (20-40); Mean Corpuscular HGB Conc 35.2 g/dl (31.0-35.0); Mean Corpuscular Hemoglobin 29.8 pg (27.0-33.0); Mean Corpuscular Volume 84.6 fL (80.0-98.0); Mean Platelet Volume 9.4 fL (9.4-12.3); Monocytes Absolute Auto 1.3 X10*3/uL (0.1-1.2); Monocytes Percent Auto 8.2 % (2-11); Neutrophils Absolute Auto 11.7 x10*3/uL (2.0-8.3); Neutrophils Percent Auto 76.6 % (45-73); Platelet Count 286 X10*3/uL (160-400); Red Blood Count 4.16 X10*6/uL (4.20-5.50); Red Cell Distribution Width 12.8 % (11.0-16.0); White Blood Count 15.3 X10*3/uL (4.8-10.8)
[2024-06-06 05:24] LABS: VBG HCO3 28 mmol/L (22-26); VBG pCO2 38 mmHg; VBG pH 7.47 (7.32-7.43); VBG pO2 99 mmHg
[2024-06-06 05:30] LABS: Venous Blood Gas Refer to POC result
[2024-06-06 05:32] LABS: Alanine Aminotransferase 37 U/L (0-31); Albumin Level 3.4 g/dL (3.5-5.0); Alkaline Phosphatase 40 U/L (39-117); Anion Gap 11 (12-20); Aspartate Amino Transferase 24 U/L (5-31); Bilirubin Total 0.7 mg/dL (0.0-1.0); Blood Urea Nitrogen 25 mg/dL (9-16); Calcium 8.4 mg/dL (8.4-10.2); Carbon Dioxide 25 mmol/L (22-29); Chloride 107 mmol/L (96-108); Creatinine Clr Calc Pharmacy 76.2; Estimated Glomerular Filt Rate > 60; Glucose Random 136 mg/dL (60-115); Potassium 3.5 mmol/L (3.3-5.1); Sodium 139 mmol/L (135-145); Total Protein 5.3 g/dL (6.5-8.0)
[2024-06-06] MEDS: Piperacillin Sodium/Tazobactam 4.5 GM in 0.9 % Sodium Chloride 100 ML IV ×3 (05:48→16:43)
[2024-06-06] MEDS: Acetylcysteine 10 % 400 MG/4 ML VIAL INHALE ×2 (07:43→18:59)
[2024-06-06] MEDS: methylPREDNISolone Sod Succ 40 MG/ML VIAL IVPUSH (08:22)
[2024-06-06] MEDS: Enoxaparin Sodium 80 MG/0.8 ML SYRINGE SUBCUT ×2 (08:22→20:39)
[2024-06-06] MEDS: Metoprolol Succinate ER 50 MG TAB.ER.24H PO (08:22)
[2024-06-06] MEDS: Doxycycline Hyclate 100 MG in 0.9 % Sodium Chloride 250 ML 166.67 MG IV ×2 (08:22→20:38)
[2024-06-06] MEDS: 0.9 % Sodium Chloride Flush 3 ML SYRINGE IVFLUSH ×2 (08:23→16:42)
[2024-06-06] MEDS: CYCLOSPORINE 0.05% 1 EACH EYE-BOTH ×2 (08:27→20:40)
--- NOTE | 2024-06-06 14:41 | MHC.SL.SWA ---
Speech Pathologist Impression: Risk of Aspiration, Oropharyngeal Dysphagia Risk of Aspiration Due to: Medically Fragile History of Pneumonia Hx of Recent Extubation Weak Cough Weak Voice Dysphasia Diet Status: Upgrade to NDD2, continue aspiration precautions Liquid Consistency and Strategies for Safe Swallow: Liquid Intake Recommendation: Thin Liquid Intake Strategies: Small Sips No Straws Solid Food Consistency: Dietary Recommendations: Grnd/Mech Altered (NDD2) Oral Medication Intake: Crushed with Puree Please contact the pharmacy regarding appropriate crushable or liquid drug formulations that are available whenever modified delivery is recommended. Compensatory Strategies and Precautions to be Taken for Safe Swallow: Sitting Upright (90 deg) No Straw Liquids from Cup Small Bites and Sips Alternate Liquids/Solids Supervision While Eating and Drinking for Safe Swallow: Total Supervision (1:1) Swallowing Recommended Treatments: Compens. Strategy Educat. Recommendation for Speech: Modified Barium Swallow Study - Inpatient Comment: Patient presented with all aspects of oral motor function and swallow WFL. Concern for silent aspiration. Plan for MBSS once patient has weaned from HFNC. Vice President Of Software Development Clinican/Clinical Fellow: No Supervisory Statement: I have reviewed and agree with the student/clinical fellow's documentation: N/A Speech Language Pathologist: Edie Funes M.A., CCC-LABOR RELATIONS DIRECTOR
--- NOTE | 2024-06-06 15:18 | P.PNIM_ITS ---
Subjective Subjective Date of Service: 06/06/24 Interval History: Seen and examined this morning Follow-up for respiratory failure downgraded from ICU 06/05. denies sob, reports improvement in cough Review of Systems Review of Systems: Yes all other systems are reviewed and are negative Constitutional Constitutional: Denies chills and Denies fever(s) Cardiovascular Cardiovascular: Denies chest pain, Denies palpitations and Denies dyspnea Respiratory Respiratory: Denies dyspnea Gastrointestinal Gastrointestinal: Denies abdominal pain, Denies nausea and Denies vomiting Endocrine Endocrine: Denies palpitations Physical Exam 2 Vital Signs: Vital Signs: Last Vital Signs Temp 97.5 F 06/06/24 11:08 Pulse 78 06/06/24 11:42 Resp 18 06/06/24 11:42 BP 116/68 06/06/24 11:08 Pulse Ox 90 L 06/06/24 11:08 O2 Del Method High Flow Nasal C annula 06/06/24 11:08 O2 Flow Rate 40 06/06/24 11:08 FiO2 50 06/06/24 11:08 Oxygen Flow Rate 2 05/25/24 23:08 BMI result Body Mass Index 31.9 Const: General: comfortable, alert and awake Nutritional Appearance: a verage body habitus Orientation/consciousness: patient oriented x3 Resp: Other: good air entry, no wheeze, some rhonchi Effort & Inspection: normal respiratory effort, able to speak in complete sentences, no respiratory distress and no use of accessory muscles Cardio: Rate: regular rate GI: Inspection: No distended Palpation (GI): Soft to palpation and nontender Neuro: General: patient oriented x3, moves all extremities and CN's II-XI intact bilaterally Extrem: General: Yes no pedal edema Objective Data Active Medications Acetaminophen (Acetaminophen 325 Mg Tablet) 650 mg PO Q6H PRN PRN Reason: Pain, Mild 1-3,fever,headache Acetylcysteine (Acetylcysteine 10 % 400 Mg/4 Ml Vial) 400 mg INHALE BID [facility] Last Admin: 06/06/24 07:43 Dose: 400 mg Documented By: ANILA Apixaban (Apixaban 5 Mg Tablet) 5 mg PO BID [facility] Last Admin: 06/02/24 12:09 Dose: Not Given Documented By: JIMY Non-Admin Reason: Physician Held Med Enoxaparin Sodium (Enoxaparin Sodium 80 Mg/0.8 Ml Syringe) 80 mg 1 mg/kg (80 mg) SUBCUT Q12H [facility] Last Admin: 06/06/24 08:22 Dose: 80 mg Documented By: SHMUEL Guaifenesin (Guaifenesin 200 Mg/10 Ml 10 Ml Liquid) 10 ml PO Q4H PRN PRN Reason: Cough Last Admin: 06/02/24 03:51 Dose: 10 ml Documented By: MARGARITA Piperacillin Sod/Tazobactam (Sod 4.5 gm/ Sodium Chloride) 100 mls @ 200 mls/hr IV Q6H [facility] Last Infusion: 06/06/24 13:00 Dose: Infused Documented By: SHMUEL Doxycycline Hyclate 100 mg/ (Sodium Chloride) 250 mls @ 166.67 mls/hr IV Q12H [facility] Last Infusion: 06/06/24 10:39 Dose: Infused Documented By: SHMUEL Levalbuterol HCl (Levalbuterol Hcl 1.25 Mg/3 Ml Vial.Neb) 1.25 mg INHALE Q4H [facility] Last Admin: 06/06/24 11:42 Dose: 1.25 mg Documented By: ANILA Loratadine (Loratadine 10 Mg Tablet) 10 mg PO DAILY [facility] Last Admin: 06/02/24 12:10 Dose: Not Given Documented By: JIMY Non-Admin Reason: Physician Held Med Methylprednisolone Sodium Succinate (Methylprednisolone Sod Succ 40 Mg/Ml Vial) 40 mg IVPUSH DAILY [facility] Last Admin: 06/06/24 08:22 Dose: 40 mg Documented By: SHMUEL Metoprolol Succinate (Metoprolol Succinate Er 50 Mg Tab.Er.24h) 50 mg PO DAILY [facility]; Protocol Last Admin: 06/06/24 08:22 Dose: 50 mg Documented By: SHMUEL Montelukast Sodium (Montelukast Sodium 10 Mg Tablet) 10 mg PO BEDTIME [facility] Last Admin: 06/05/24 20:50 Dose: 10 mg Documented By: VEENA Pt Radha Med ( Cyclosporine 0.05% Eye Emulsion) 1 each EYE-BOTH BID [facility] Last Admin: 06/06/24 08:27 Dose: 1 each Documented By: SHMUEL Sodium Chloride (0.9 % Sodium Chloride Flush 3 Ml Syringe) 3 ml IVFLUSH QSHIFT [facility] Last Admin: 06/06/24 08:23 Dose: 3 ml Documented By: SHMUEL Sodium Chloride (Sodium Chloride 0.65 % Nasal 44 Ml Sprbtl) 1 spray NOSTRIL-B Q1H PRN PRN Reason: Dry Nasal Passages Labs 06/06/24 05:09 06/06/24 05:09 Labs: Laboratory Results - last 24 hr 06/02/24 06/06/24 06/06/24 09:29 05:09 05:16 MCV 84.6 MCH 29.8 MCHC 35.2 H RDW 12.8 Plt Count 286 MPV 9.4 Immature Gran % (Auto) 2.5 H Neut % (Auto) 76.6 H Lymph % (Auto) 12.6 L Garrett % (Auto) 8.2 Eos % (Auto) 0.0 Baso % (Auto) 0.1 Lymph # (Auto) 1.9 [place] # (Auto) 1.3 H Eos # (Auto) 0.0 Baso # (Auto) 0.0 Abs Immat Gran (auto) 0.39 H Absolute Neuts (auto) 11.7 H Absolute Nucleated RBC 0.000 Nucleated RBC % (auto) 0.0 VBG pH 7.47 H VBG pCO2 38 VBG pO2 99 VBG HCO3 28 H VBG O2 Saturation 99.0 VBG Base Excess 5.0 Anion Gap 11 L Estim Creat Clear Calc 76.2 Estimated GFR > 60 Random Glucose 136 H Calcium 8.4 Total Bilirubin 0.7 AST 24 ALT 37 H Alkaline Phosphatase 40 Total Protein 5.3 L Albumin 3.4 L Mycoplasma pneumon IgG 1.52 H Mycoplasma pneumon IgM 389 Assessment and Plan (1) Acute hypoxemic respiratory failure: Status: Acute Plan This is a 73-year-old female with a past medical history of HTN, HLD, hyperparathyroidism status post parathyroidectomy, asthma, GERD, AFib on Eliquis who presented to the hospital with a chief complaint of cough and shortness of breath found to have PNA with acute hypoxic respiratory failure initially requiring high-flow supplemental oxygen, on June 02 she decompensated requiring intubation and was transferred to the ICU. She was extubated June 03 and has been on high-flow since. Bronchoscopy on June 02 showing significant thick white secretions. Still on high flow, downgraded back to medical floor on 06/05 Acute hypoxic respiratory failure d/t b/l PNA, atelectasis and high suspicion for aspiration CTA negative for PE. Echocardiogram normal, BNP low. RPP negative Ceftriaxone and Doxy, started 05/26--> ceftriaxone changed to Zosyn 05/28 Blood cultures negative to date repeat CT scan 05/30 with worsening infiltrates and concern for aspiration h/o aspergillus; not likely playing a role per pulm in ICU: Cultures remained negative. 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 serum mycoplasma pending, urine Legionella and pneumococcal antigen negative; MRSA nares negative. Bronchoscopy on June 02 showing significant thick white secretions Continue Zosyn, and doxycycline,wean solu-medrol to po prednisone continue mucomyst, CPT continues to be on high flow, wean as able plan for Modified barium swallow to rule out aspiration, likely sunday Speech following-recommend NDD2 diet hemoptysis per ICU attending, bronchosopy was extensive, some friable mucosa Eliquis was switched to therapeutic Lovenox for this reason H/H has remained stable Can transitioned back to Eliquis tomorrow if H/H remained stable Paroxysmal Atrial fibrillation with RVR: Anticoagulation switched to Lovenox which can be switched back to apixaban if hemoptysis improves/H/H remains stable Received multiple amiodarone boluses and was on diltiazem drip for rate control yesterday; currently converted back to sinus increased dose of metoprolol to 50 mg and hold off on amlodipine for now Hypertension Continue metoprolol Hold amlodipine as per above DVT prophylaxis-therapeutic Lovenox, transitioned back to Eliquis when medically appropriate as above Quality Stroke Does the patient have a stroke diagnosis?: No VTE Prior VTE?: No VTE Risk Level:: Medical - moderate - high VTE Device Contraindication: N/A - Device Ordered VTE Drug Contraindication: Treatment Not Indicated
--- NOTE | 2024-06-06 15:44 | MHC.CM.PN ---
EMR reviewed and per MD rounds, pt is not medically cleared for discharge, pt was downgraded from the ICU, and remains on hi-flow.
[2024-06-06 17:34] LABS: Fungitell <31 pg/mL (<60); Fungitell 1,3 beta glucan Negative
[2024-06-06] MEDS: Montelukast Sodium 10 MG TABLET PO (20:39)
[2024-06-07] VITALS (12 sets, daily range): BP systolic 119–146; BP diastolic 59–79; PULSE 64–80; RESP 16–19; TEMP 36.4–36.6; O2SAT 90–95; BMI 33.2
[2024-06-07] MEDS: levalbuterol HCL 1.25 MG/3 ML VIAL.NEB INHALE ×6 (00:12→23:25)
[2024-06-07] MEDS: Piperacillin Sodium/Tazobactam 4.5 GM in 0.9 % Sodium Chloride 100 ML IV ×4 (01:03→17:19)
[2024-06-07] MEDS: 0.9 % Sodium Chloride Flush 3 ML SYRINGE IVFLUSH ×3 (01:06→17:20)
[2024-06-07] MEDS: Acetylcysteine 10 % 400 MG/4 ML VIAL INHALE ×2 (07:36→18:57)
[2024-06-07] MEDS: predniSONE 20 MG TABLET PO (08:43)
[2024-06-07] MEDS: Enoxaparin Sodium 80 MG/0.8 ML SYRINGE SUBCUT ×2 (08:43→19:59)
[2024-06-07] MEDS: Metoprolol Succinate ER 50 MG TAB.ER.24H PO (08:43)
[2024-06-07] MEDS: Doxycycline Hyclate 100 MG in 0.9 % Sodium Chloride 250 ML 166.67 MG IV ×2 (08:44→20:34)
[2024-06-07] MEDS: CYCLOSPORINE 0.05% 1 EACH EYE-BOTH ×2 (08:45→19:59)
--- NOTE | 2024-06-07 10:58 | HO.PM.IMPN ---
Subjective Subjective Date of Service: 06/07/24 Interval History: Seen and examined this morning Follow-up for respiratory failure downgraded from ICU 06/05. denies sob, reports improvement in cough Review of Systems Review of Systems: Yes all other systems are reviewed and are negative Constitutional Constitutional: Denies chills and Denies fever(s) Cardiovascular Cardiovascular: Denies chest pain, Denies palpitations and Denies dyspnea Respiratory Respiratory: Denies dyspnea Gastrointestinal Gastrointestinal: Denies abdominal pain, Denies nausea and Denies vomiting Endocrine Endocrine: Denies palpitations Physical Exam Vital Signs: Vital Signs: Last Vital Signs Temp 97.8 F 06/07/24 07:22 Pulse 64 06/07/24 07:38 Resp 18 06/07/24 07:38 BP 145/70 H 06/07/24 07:22 Pulse Ox 93 06/07/24 07:22 O2 Del Method Nasal Cannula 06/07/24 07:22 O2 Flow Rate 2 06/07/24 07:22 FiO2 50 06/06/24 16:00 Oxygen Flow Rate 2 05/25/24 23:08 BMI result Body Mass Index 33.2 Appearing in no acute distress lung sounds are clear to auscultation heart regular rate rhythm, clear S1, S2 positive bowel sounds, abdomen is soft, nontender neuro patient is alert x3, no focal deficits Objective Data Active Medications Acetaminophen (Acetaminophen 325 Mg Tablet) 650 mg PO Q6H PRN PRN Reason: Pain, Mild 1-3,fever,headache Acetylcysteine (Acetylcysteine 10 % 400 Mg/4 Ml Vial) [address] [facility] Last Admin: 06/07/24 07:36 Dose: 400 mg Documented By: CHRISTIN Apixaban (Apixaban 5 Mg Tablet) [address] [facility] Last Admin: 06/02/24 12:09 Dose: Not Given Documented By: JIMY Non-Admin Reason: Physician Held Med Enoxaparin Sodium (Enoxaparin Sodium 80 Mg/0.8 Ml Syringe) 80 mg 1 mg/kg (80 mg) SUBCUT Q12H [facility] Last Admin: 06/07/24 08:43 Dose: 80 mg Documented By: ALANNAH Guaifenesin (Guaifenesin 200 Mg/10 Ml 10 Ml Liquid) 10 ml PO Q4H PRN PRN Reason: Cough Last Admin: 06/02/24 03:51 Dose: 10 ml Documented By: MARGARITA Piperacillin Sod/Tazobactam (Sod 4.5 gm/ Sodium Chloride) 100 mls @ 200 mls/hr IV Q6H [facility] Last Infusion: 06/07/24 07:02 Dose: Infused Documented By: SAIRA Doxycycline Hyclate 100 mg/ (Sodium Chloride) 250 mls @ 166.67 mls/hr IV Q12H [facility] Last Infusion: 06/07/24 10:15 Dose: Infused Documented By: ALANNAH Levalbuterol HCl (Levalbuterol Hcl 1.25 Mg/3 Ml Vial.Neb) 1.[address] [facility] Loratadine (Loratadine 10 Mg Tablet) [address] [facility] Last Admin: 06/02/24 12:10 Dose: Not Given Documented By: JIMY Non-Admin Reason: Physician Held Med Metoprolol Succinate (Metoprolol Succinate Er 50 Mg Tab.Er.24h) [address] [facility]; Protocol Last Admin: 06/07/24 08:43 Dose: 50 mg Documented By: ALANNAH Montelukast Sodium (Montelukast Sodium 10 Mg Tablet) [address] [facility] Last Admin: 06/06/24 20:39 Dose: 10 mg Documented By: JOHNNY Garcia Med ( Cyclosporine 0.05% Eye Emulsion) 1 each EYE-BOTH BID [facility] Last Admin: 06/07/24 08:45 Dose: 1 each Documented By: ALANNAH Prednisone (Prednisone 20 Mg Tablet) [address] [facility] Last Admin: 06/07/24 08:43 Dose: 20 mg Documented By: ALANNAH Sodium Chloride (0.9 % Sodium Chloride Flush 3 Ml Syringe) [address] [facility] Last Admin: 06/07/24 08:51 Dose: 3 ml Documented By: ALANNAH Sodium Chloride (Sodium Chloride 0.65 % Nasal 44 Ml Sprbtl) 1 spray NOSTRIL-B Q1H PRN PRN Reason: Dry Nasal Passages Labs 06/06/24 05:09 06/06/24 05:09 Labs: Laboratory Results - last 24 hr 06/03/24 11:33 Beta-(1,3)-D-Glucan <31 B-(1,3)-D-Glucan Intrp Negative Assessment and Plan (1) Acute hypoxemic respiratory failure: Status: Acute Plan 73-year-old female with a past medical history of HTN, HLD, hyperparathyroidism status post parathyroidectomy, asthma, GERD, AFib on Eliquis who presented to the hospital with a chief complaint of cough and shortness of breath found to have PNA with acute hypoxic respiratory failure initially requiring high-flow supplemental oxygen, on June 02 she decompensated requiring intubation and was transferred to the ICU. She was extubated June 03 and has been on high-flow since. Bronchoscopy on June 02 showing significant thick white secretions. Still on high flow, downgraded back to medical floor on 06/05 Acute hypoxic respiratory failure secondary to bilateral aspiration pneumonia CTA negative for PE. Echocardiogram normal BNP low RPP negative Blood cultures negative to date repeat CT scan 05/30 with worsening infiltrates and concern for aspiration s/p Ceftriaxone and Doxy>changed to Zosyn and Doxy 05/28 h/o aspergillus; not likely playing a role per pulm Cultures remained negative. 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 serum mycoplasma pending, urine Legionella and pneumococcal antigen negative; MRSA nares negative. Bronchoscopy on June 02 showing significant thick white secretions solu-medrol weaned to po prednisone continue mucomyst, CPT off high flow on 2 liters nc plan for Modified barium swallow to rule out aspiration, likely sunday Speech following-recommend NDD2 diet hemoptysis per ICU attending, bronchosopy was extensive, some friable mucosa Eliquis was switched to therapeutic Lovenox for this reason H/H has remained stable Can transitioned back to Eliquis tomorrow if H/H remained stable Paroxysmal Atrial fibrillation with RVR Anticoagulation switched to Lovenox which can be switched back to apixaban if hemoptysis improves/H/H remains stable Received multiple amiodarone boluses and was on diltiazem drip for rate control yesterday; currently converted back to sinus increased dose of metoprolol to 50 mg and hold off on amlodipine for now Hypertension Continue metoprolol Hold amlodipine as per above DVT prophylaxis-therapeutic Lovenox, transitioned back to Eliquis when medically appropriate as above Quality Stroke Does the patient have a stroke diagnosis?: No VTE Prior VTE?: No VTE Risk Level:: Medical - moderate - high VTE Device Contraindication: N/A - Device Ordered VTE Drug Contraindication: Treatment Not Indicated
[2024-06-07] MEDS: Montelukast Sodium 10 MG TABLET PO (19:59)
[2024-06-07] MEDS: Calcium Carbonate 750 MG TAB.CHEW PO (20:35)
[2024-06-08] VITALS (11 sets, daily range): BP systolic 99–139; BP diastolic 57–70; PULSE 68–97; RESP 18–20; TEMP 36.3–37.1; O2SAT 90–94
[2024-06-08] MEDS: Piperacillin Sodium/Tazobactam 4.5 GM in 0.9 % Sodium Chloride 100 ML IV ×5 (00:03→22:59)
[2024-06-08] MEDS: guaiFENesin 200 MG/10 ML 10 ML LIQUID PO ×2 (00:27→20:36)
[2024-06-08] MEDS: 0.9 % Sodium Chloride Flush 3 ML SYRINGE IVFLUSH ×3 (00:28→20:37)
[2024-06-08] MEDS: Throat Lozenge, Medicated LOZENGE 1 LOZENGE MUCOUS MEM ×3 (01:29→20:36)
[2024-06-08] MEDS: levalbuterol HCL 1.25 MG/3 ML VIAL.NEB INHALE ×5 (07:31→23:18)
[2024-06-08] MEDS: Acetylcysteine 10 % 400 MG/4 ML VIAL INHALE ×2 (07:32→19:49)
[2024-06-08] MEDS: Doxycycline Hyclate 100 MG in 0.9 % Sodium Chloride 250 ML 166.67 MG IV ×2 (08:22→20:37)
[2024-06-08] MEDS: predniSONE 20 MG TABLET PO (08:25)
[2024-06-08] MEDS: Enoxaparin Sodium 80 MG/0.8 ML SYRINGE SUBCUT ×2 (08:26→20:36)
[2024-06-08] MEDS: Metoprolol Succinate ER 50 MG TAB.ER.24H PO (08:26)
[2024-06-08] MEDS: CYCLOSPORINE 0.05% 1 EACH EYE-BOTH ×2 (08:26→20:43)
--- NOTE | 2024-06-08 10:55 | HO.PM.IMPN ---
Subjective Subjective Date of Service: 06/08/24 Interval History: Seen and examined this morning Follow-up for respiratory failure downgraded from ICU 06/05. denies sob, reports improvement in cough Review of Systems Review of Systems: Yes all other systems are reviewed and are negative Constitutional Constitutional: Denies chills and Denies fever(s) Cardiovascular Cardiovascular: Denies chest pain, Denies palpitations and Denies dyspnea Respiratory Respiratory: Denies dyspnea Gastrointestinal Gastrointestinal: Denies abdominal pain, Denies nausea and Denies vomiting Endocrine Endocrine: Denies palpitations Physical Exam Vital Signs: Vital Signs: Last Vital Signs Temp 97.3 F 06/08/24 08:00 Pulse 78 06/08/24 08:00 Resp 20 06/08/24 08:00 BP 120/65 06/08/24 08:00 Pulse Ox 90 L 06/08/24 08:00 O2 Del Method Nasal Cannula 06/08/24 08:00 O2 Flow Rate 1 06/08/24 08:00 FiO2 50 06/06/24 16:00 Oxygen Flow Rate 2 05/25/24 23:08 BMI result Body Mass Index 33.2 Appearing in no acute distress lung sounds are clear to auscultation heart regular rate rhythm, clear S1, S2 positive bowel sounds, abdomen is soft, nontender neuro patient is alert x3, no focal deficits Objective Data Active Medications Acetaminophen (Acetaminophen 325 Mg Tablet) 650 mg PO Q6H PRN PRN Reason: Pain, Mild 1-3,fever,headache Acetylcysteine (Acetylcysteine 10 % 400 Mg/4 Ml Vial) 400 mg INHALE BID [facility] Last Admin: 06/08/24 07:32 Dose: 400 mg Documented By: MICHELLE Apixaban (Apixaban 5 Mg Tablet) 5 mg PO BID [facility] Last Admin: 06/02/24 12:09 Dose: Not Given Documented By: JIMY Non-Admin Reason: Physician Held Med Benzocaine (Throat Lozenge, Medicated Lozenge) 1 lozenge MUCOUS MEM Q4H PRN PRN Reason: Sore Throat Last Admin: 06/08/24 01:29 Dose: 1 lozenge Documented By: IBIS Calcium Carbonate (Calcium Carbonate 750 Mg Tab.Chew) 750 mg PO Q6H PRN PRN Reason: Heartburn Last Admin: 06/07/24 20:35 Dose: 750 mg Documented By: SUHAIL Enoxaparin Sodium (Enoxaparin Sodium 80 Mg/0.8 Ml Syringe) 80 mg 1 mg/kg (80 mg) SUBCUT Q12H [facility] Last Admin: 06/08/24 08:26 Dose: 80 mg Documented By: ALANNAH Guaifenesin (Guaifenesin 200 Mg/10 Ml 10 Ml Liquid) 10 ml PO Q4H PRN PRN Reason: Cough Last Admin: 06/08/24 00:27 Dose: 10 ml Documented By: IBIS Piperacillin Sod/Tazobactam (Sod 4.5 gm/ Sodium Chloride) 100 mls @ 200 mls/hr IV Q6H [facility] Last Infusion: 06/08/24 07:05 Dose: Infused Documented By: ALANNAH Doxycycline Hyclate 100 mg/ (Sodium Chloride) 250 mls @ 166.67 mls/hr IV Q12H [facility] Last Infusion: 06/08/24 09:52 Dose: Infused Documented By: ALANNAH Levalbuterol HCl (Levalbuterol Hcl 1.25 Mg/3 Ml Vial.Neb) 1.25 mg INHALE RQ4H [facility] Last Admin: 06/08/24 07:31 Dose: 1.25 mg Documented By: MICHELLE Loratadine (Loratadine 10 Mg Tablet) 10 mg PO DAILY [facility] Last Admin: 06/02/24 12:10 Dose: Not Given Documented By: JIMY Non-Admin Reason: Physician Held Med Metoprolol Succinate (Metoprolol Succinate Er 50 Mg Tab.Er.24h) 50 mg PO DAILY [facility]; Protocol Last Admin: 06/08/24 08:26 Dose: 50 mg Documented By: ALANNAH Montelukast Sodium (Montelukast Sodium 10 Mg Tablet) 10 mg PO BEDTIME [facility] Last Admin: 06/07/24 19:59 Dose: 10 mg Documented By: SUHAIL Pt Owned Med ( Cyclosporine 0.05% Eye Emulsion) 1 each EYE-BOTH BID [facility] Last Admin: 06/08/24 08:26 Dose: 1 each Documented By: ALANNAH Prednisone (Prednisone 20 Mg Tablet) 20 mg PO DAILY [facility] Last Admin: 06/08/24 08:25 Dose: 20 mg Documented By: HO.PHANLYM Sodium Chloride (0.9 % Sodium Chloride Flush 3 Ml Syringe) 3 ml IVFLUSH QSHIFT [facility] Last Admin: 06/08/24 08:24 Dose: 3 ml Documented By: SHERICE.PHANLYM Sodium Chloride (Sodium Chloride 0.65 % Nasal 44 Ml Sprbtl) 1 spray NOSTRIL-B Q1H PRN PRN Reason: Dry Nasal Passages Labs 06/06/24 05:09 06/06/24 05:09 Microbiology Microbiology Results: Microbiology 06/02/24 09:42 Blood Culture - Final Blood - Venous No growth after 5 days. 06/02/24 09:42 Blood Culture - Final Blood - Venous No growth after 5 days. Assessment and Plan (1) Acute hypoxemic respiratory failure: Status: Acute Plan 73-year-old female with a past medical history of HTN, HLD, hyperparathyroidism status post parathyroidectomy, asthma, GERD, AFib on Eliquis who presented to the hospital with a chief complaint of cough and shortness of breath found to have PNA with acute hypoxic respiratory failure initially requiring high-flow supplemental oxygen, on June 02 she decompensated requiring intubation and was transferred to the ICU. She was extubated June 03 and has been on high-flow since. Bronchoscopy on June 02 showing significant thick white secretions. Still on high flow, downgraded back to medical floor on 06/05 Acute hypoxic respiratory failure secondary to bilateral aspiration pneumonia CTA negative for PE. Echocardiogram normal Blood cultures negative to date repeat CT scan 05/30 with worsening infiltrates and concern for aspiration h/o aspergillus; not likely playing a role per pulm serum mycoplasma urine Legionella, pneumococcal antigen, Beta D glucan neg MRSA nares negative. Bronchoscopy on June 02 showing significant thick white secretions solu-medrol weaned to po prednisone continue mucomyst, CPT off high flow on 2 liters nc s/p Ceftriaxone and Doxy>changed to Zosyn and Doxy 05/28 plan for Modified barium swallow to rule out aspiration, likely sunday Speech following-recommend NDD2 diet hemoptysis per ICU attending, bronchosopy was extensive, some friable mucosa Eliquis was switched to therapeutic Lovenox for this reason H/H has remained stable Can transitioned back to Eliquis tomorrow if H/H remained stable Paroxysmal Atrial fibrillation with RVR Anticoagulation switched to Lovenox which can be switched back to apixaban if hemoptysis improves/H/H remains stable Received multiple amiodarone boluses and was on diltiazem drip for rate control yesterday; currently converted back to sinus increased dose of metoprolol to 50 mg and hold off on amlodipine for now Hypertension Continue metoprolol Hold amlodipine as per above DVT prophylaxis-therapeutic Lovenox, transition back to Eliquis when medically appropriate as above Quality Stroke Does the patient have a stroke diagnosis?: No VTE Prior VTE?: No VTE Risk Level:: Medical - moderate - high VTE Device Contraindication: N/A - Device Ordered VTE Drug Contraindication: Treatment Not Indicated
[2024-06-08] MEDS: Montelukast Sodium 10 MG TABLET PO (20:36)
[2024-06-08] MEDS: Calcium Carbonate 750 MG TAB.CHEW PO (20:39)
[2024-06-09] VITALS (30 sets, daily range): BP systolic 79–155; BP diastolic 44–84; PULSE 48–100; RESP 15–22; TEMP 34.6–37.5; O2SAT 82–99; BMI 33.4
[2024-06-09] MEDS: levalbuterol HCL 1.25 MG/3 ML VIAL.NEB INHALE ×3 (03:54→11:13)
[2024-06-09] MEDS: Piperacillin Sodium/Tazobactam 4.5 GM in 0.9 % Sodium Chloride 100 ML IV ×3 (05:04→22:07)
--- NOTE | 2024-06-09 06:17 | PC.NURSE ---
Patient is requiring increased oxygen needs, from 1L n/c with sats of 89-93% to now 5L n/c with sats of 91-92%. Patient continues to have a croupy ronchorus cough, coughing up blood. aware.
--- NOTE | 2024-06-09 07:05 | PC.RT ---
Addendum entered by Mesha Johnson, RT 06/09/24 07:12: Correction : Pt was given xopenex not duo neb Original Note: RT in room to give scheduled duo neb and mucomyst. Pt coughing up blood. Pt reports this has been going on since sunday and has not improved. Mucomyst and CPT held due to coughing blood, but duo neb given. Pt O2 requirements have increased. notified.
[2024-06-09] MEDS: guaiFENesin 200 MG/10 ML 10 ML LIQUID PO (07:07)
[2024-06-09] MEDS: Throat Lozenge, Medicated LOZENGE 1 LOZENGE MUCOUS MEM (07:07)
--- NOTE | 2024-06-09 07:44 | PC.RT ---
Pt SATs 86% on 15L gonzalez cannula per RN. PA okayed HFNC. RT placed pt on HFNC 45L/90%. SATs increased to 94%. Pt uriah well.
[2024-06-09] MEDS: Metoprolol Succinate ER 50 MG TAB.ER.24H PO (08:37)
[2024-06-09] MEDS: Doxycycline Hyclate 100 MG in 0.9 % Sodium Chloride 250 ML 166.67 MG IV ×2 (08:38→21:44)
[2024-06-09] MEDS: CYCLOSPORINE 0.05% 1 EACH EYE-BOTH (08:41)
[2024-06-09] MEDS: predniSONE 20 MG TABLET PO (08:54)
--- NOTE | 2024-06-09 10:49 | P.PNIM_ITS ---
Subjective Subjective Date of Service: 06/09/24 Interval History: Seen and examined this morning Follow-up for respiratory failure downgraded from ICU 06/05. denies sob, reports improvement in cough Review of Systems Review of Systems: Yes all other systems are reviewed and are negative Constitutional Constitutional: Denies chills and Denies fever(s) Cardiovascular Cardiovascular: Denies chest pain, Denies palpitations and Denies dyspnea Respiratory Respiratory: Denies dyspnea Gastrointestinal Gastrointestinal: Denies abdominal pain, Denies nausea and Denies vomiting Endocrine Endocrine: Denies palpitations Physical Exam 2 Vital Signs: Vital Signs: Last Vital Signs Temp 98.7 F 06/09/24 07:22 Pulse 95 06/09/24 07:22 Resp 16 06/09/24 07:43 BP 129/61 06/09/24 07:22 Pulse Ox 98 06/09/24 07:40 O2 Del Method High Flow Nasal C annula 06/09/24 07:40 O2 Flow Rate 45 06/09/24 07:40 FiO2 90 06/09/24 07:40 Oxygen Flow Rate 2 05/25/24 23:08 BMI result Body Mass Index 33.4 Appearing in no acute distress head is normocephalic atraumatic eyes pupils are PERRLA sclera is anicteric mouth throat mucous membranes are intact and moist neck is supple no lymphadenopathy, no JVD noted lung sounds are clear to auscultation heart regular rate rhythm, clear S1, S2 positive bowel sounds, abdomen is soft, nontender neuro patient is alert x3, no focal deficits Objective Data Active Medications Acetaminophen (Acetaminophen 325 Mg Tablet) 650 mg PO Q6H PRN PRN Reason: Pain, Mild 1-3,fever,headache Acetylcysteine (Acetylcysteine 10 % 400 Mg/4 Ml Vial) 400 mg INHALE BID [facility] Last Admin: 06/09/24 07:09 Dose: Not Given Documented By: CHRISTIN Non-Admin Reason: pt coughing blood Apixaban (Apixaban 5 Mg Tablet) 5 mg PO BID [facility] Last Admin: 06/02/24 12:09 Dose: Not Given Documented By: JIMY Non-Admin Reason: Physician Held Med Benzocaine (Throat Lozenge, Medicated Lozenge) 1 lozenge MUCOUS MEM Q4H PRN PRN Reason: Sore Throat Last Admin: 06/09/24 07:07 Dose: 1 lozenge Documented By: ALANNAH Calcium Carbonate (Calcium Carbonate 750 Mg Tab.Chew) 750 mg PO Q6H PRN PRN Reason: Heartburn Last Admin: 06/08/24 20:39 Dose: 750 mg Documented By: KRISTEN Enoxaparin Sodium (Enoxaparin Sodium 80 Mg/0.8 Ml Syringe) 80 mg 1 mg/kg (80 mg) SUBCUT Q12H [facility] Last Admin: 06/08/24 20:36 Dose: 80 mg Documented By: KRISTEN Guaifenesin (Guaifenesin 200 Mg/10 Ml 10 Ml Liquid) 10 ml PO Q4H PRN PRN Reason: Cough Last Admin: 06/09/24 07:07 Dose: 10 ml Documented By: ALANNAH Piperacillin Sod/Tazobactam (Sod 4.5 gm/ Sodium Chloride) 100 mls @ 200 mls/hr IV Q6H [facility] Last Infusion: 06/09/24 05:47 Dose: Infused Documented By: JOHNNY Doxycycline Hyclate 100 mg/ (Sodium Chloride) 250 mls @ 166.67 mls/hr IV Q12H [facility] Last Infusion: 06/09/24 10:08 Dose: Infused Documented By: ALANNAH Levalbuterol HCl (Levalbuterol Hcl 1.25 Mg/3 Ml Vial.Neb) 1.25 mg INHALE RQ4H [facility] Last Admin: 06/09/24 07:03 Dose: 1.25 mg Documented By: CHRISTIN Loratadine (Loratadine 10 Mg Tablet) 10 mg PO DAILY [facility] Last Admin: 06/02/24 12:10 Dose: Not Given Documented By: JIMY Non-Admin Reason: Physician Held Med Metoprolol Succinate (Metoprolol Succinate Er 50 Mg Tab.Er.24h) 50 mg PO DAILY [facility]; Protocol Last Admin: 06/09/24 08:37 Dose: 50 mg Documented By: ALANNAH Montelukast Sodium (Montelukast Sodium 10 Mg Tablet) 10 mg PO BEDTIME [facility] Last Admin: 06/08/24 20:36 Dose: 10 mg Documented By: KRISTEN Pt Owned Med ( Cyclosporine 0.05% Eye Emulsion) 1 each EYE-BOTH BID [facility] Last Admin: 06/09/24 08:41 Dose: 1 each Documented By: ALANNAH Prednisone (Prednisone 20 Mg Tablet) 20 mg PO DAILY [facility] Last Admin: 06/09/24 08:54 Dose: 20 mg Documented By: ALANNAH Sodium Chloride (0.9 % Sodium Chloride Flush 3 Ml Syringe) 3 ml IVFLUSH QSHIFT [facility] Last Admin: 06/09/24 08:54 Dose: Not Given Documented By: ALANNAH Non-Admin Reason: Unable to Scan Barcode Sodium Chloride (Sodium Chloride 0.65 % Nasal 44 Ml Sprbtl) 1 spray NOSTRIL-B Q1H PRN PRN Reason: Dry Nasal Passages Labs 06/06/24 05:09 06/06/24 05:09 Assessment and Plan (1) Acute hypoxemic respiratory failure: Status: Acute Plan 73-year-old female with a past medical history of HTN, HLD, hyperparathyroidism status post parathyroidectomy, asthma, GERD, AFib on Eliquis who presented to the hospital with a chief complaint of cough and shortness of breath found to have PNA with acute hypoxic respiratory failure initially requiring high-flow supplemental oxygen, on June 02 she decompensated requiring intubation and was transferred to the ICU. She was extubated June 03 and has been on high- flow since. Bronchoscopy on June 02 showing significant thick white secretions. Still on high flow, downgraded back to medical floor on 06/05 Recurrent aspiration pneumonia with hypoxia back on high flow repeat CT showing multifocal aspiration pna to right lung with possible abscess vs fistula continue zosyn and doxy and add flagyl Pulm re-consult Acute hypoxic respiratory failure secondary to bilateral aspiration pneumonia CTA negative for PE. Echocardiogram normal Blood cultures negative to date repeat CT scan 05/30 with worsening infiltrates and concern for aspiration h/o aspergillus; not likely playing a role per pulm serum mycoplasma urine Legionella, pneumococcal antigen, Beta D glucan neg MRSA nares negative. Bronchoscopy on June 02 showing significant thick white secretions solu-medrol weaned to po prednisone continue mucomyst, CPT off high flow on 2 liters nc s/p Ceftriaxone and Doxy>changed to Zosyn and Doxy 05/28 plan for Modified barium swallow to rule out aspiration Speech following-recommend NDD2 diet Hemoptysis, continued per ICU attending, bronchosopy was extensive, some friable mucosa Eliquis was switched to therapeutic Lovenox H/H has remained stable Lovenox now on hold Paroxysmal Atrial fibrillation with RVR Anticoagulation switched to Lovenox which can be switched back to apixaban if hemoptysis but now on hold Received multiple amiodarone boluses and was on diltiazem drip for rate control yesterday; currently converted back to sinus increased dose of metoprolol to 50 mg and hold off on amlodipine for now Hypertension Continue metoprolol Hold amlodipine as per above DVT prophylaxis-therapeutic Lovenox on hold, transition back to Eliquis when medically appropriate as above Quality Stroke Does the patient have a stroke diagnosis?: No VTE Prior VTE?: No VTE Risk Level:: Medical - moderate - high VTE Device Contraindication: N/A - Device Ordered VTE Drug Contraindication: Treatment Not Indicated
--- NOTE | 2024-06-09 10:56 | MHC.CM.PN ---
PT NOT YET MEDICALLY CLEAR, REQUIRING HIGH FLOW O2 DCP TBD PENDING PT EVAL HOME ? [facility]NA VS STR
--- NOTE | 2024-06-09 11:53 | PC.NURSE ---
pt was desat this am w O2 sat 85% on 15L NC, HFNC was initiated with good response. PRISON OFFICER called at 1128 d/t pt has persistent low O2 sat 80-82% on max HFNC and nonrebreather. pt is remained alert and oriented. providers at bed who assessed and called ICU provider to transfer pt as pt is no longer stable. chest Ct this Asm was review with new aspiration PNA, cont to cough up blood tinted sputum. anticoag med was held this am by hospitalist. pt was taken down by DIGITAL HARDWARE DESIGN ENGINEER and RT.
[2024-06-09] MEDS: propofoL 200 MG/20 ML VIAL 100 MG IVPUSH (11:59)
[2024-06-09] MEDS: propofoL 1,000 MG/100 ML VIAL 14.92 MG IVCONT ×2 (11:59→15:32)
[2024-06-09] MEDS: propofoL 200 MG/20 ML VIAL 50 MG IVPUSH (12:00)
--- NOTE | 2024-06-09 12:05 | PM.CCN ---
Critical Care Event Note Summary Date of Service: 06/09/24 Code activated: No Narrative: 73-year-old lady with underlying history of asthma, AFib on anticoagulation, hyperparathyroidism status post parathyroidectomy admitted on 05/26/2024 with dyspnea and hypoxia her initial CT chest demonstrated no evidence of pulmonary emboli but chronic bibasilar atelectasis. Hospital course significant for recurrent hypoxic events that appears to be related to recurrent pulmonary aspiration requiring intubation on 06/02 2024, extubated 06/03/2024. While intubating bronchoscopic clearance demonstrated large burden of thick secretions with cultures negative to date. On 06/09/2024 patient has an asthma episode of respiratory distress with refractory hypoxia likely secondary to aspiration requiring transfer to intensive care unit and intubation. Neuro: No acute issues. Cardiac: No acute issues. Hypotension is secondary to sedation requirements. Pulmonary: Acute hypoxic respiratory failure secondary to pulmonary aspiration requiring ventilatory support. CT chest also demonstrating left-sided abscess. Continue empiric broad-spectrum antibiotics. Episodes of hemoptysis, likely secondary to prior anticoagulation with apixaban, continue to monitor clinically. Renal: No acute issues. Endo: No acute issues. GI: No acute issues. ID: Likely underlying pulmonary abscess on the background of chronic aspiration, continue broad-spectrum antibiotics. Heme/Onc: No acute issues. Psych: No acute issues. Miscellaneous: No acute issues. Prophylaxis: Pneumatic compression Diet: Tube feeds Critical care time spent: 60 minutes Critical Care Time (minutes): 60
--- NOTE | 2024-06-09 12:05 | W.PM.CCHP ---
Procedures Date of Service Date of Service: 06/09/24 Intubation Intubation Comments: Patient with hemoptysis and pulmonary aspiration resulting in acute hypoxic respiratory failure refractory to noninvasive support requiring emergent intubation. Intubated with 7.5 cuffed ET tube under glide scope guidance with no immediate complications. X-ray for ET tube position is pending. Sedative: propofol Mg given: 150
[2024-06-09] MEDS: Norepinephrine Bitartrate/D5W 8 MG/250 ML PLAST..BAG 7.77 MG IVCONT (12:23)
[2024-06-09] MEDS: fentaNYL citrate/PF 100 MCG/2 ML VIAL IVPUSH (12:55)
[2024-06-09] MEDS: fentaNYL citrate/NS 1,000 MCG/100 ML PLAST..BAG 2.5 MCG IVCONT (12:56)
[2024-06-09 14:15] LABS: Glucose, Whole Blood 203 mg/dL (60-115)
--- NOTE | 2024-06-09 14:42 | MHC.SLORD ---
Speech Language Pathology Order Status: MBSS was recc to visualize pharyngeal swallow d/t suspected silent aspiration. DATABASE SPECIALIST to assess as indicated upon extubation.
[2024-06-09 15:10] LABS: MANUAL DIFF FLAG NO
[2024-06-09 15:12] LABS: Basophils Percent Auto 0.1 % (0-2); Eosinophils Absolute Auto 0.1 X10*3/uL (0.0-0.4); Eosinophils Percent Auto 0.4 % (0-4); Hematocrit 36.5 % (37.0-47.0); Hemoglobin 12.3 g/dl (12.0-16.0); Imm Gran Abs Auto 0.34 X10*3/uL (0.00-0.03); Imm Gran Pct Auto 1.6 % (0.0-0.4); Lymphocytes Absolute Auto 1.6 X10*3/uL (1.2-4.9); Lymphocytes Percent Auto 7.4 % (20-40); Mean Corpuscular HGB Conc 33.7 g/dl (31.0-35.0); Mean Corpuscular Hemoglobin 29.3 pg (27.0-33.0); Mean Corpuscular Volume 86.9 fL (80.0-98.0); Mean Platelet Volume 9.8 fL (9.4-12.3); Monocytes Percent Auto 4.6 % (2-11); Neutrophils Percent Auto 85.9 % (45-73); Platelet Count 336 X10*3/uL (160-400); Red Cell Distribution Width 13.2 % (11.0-16.0)
[2024-06-09 15:17] LABS: Venous Blood Gas Refer to POC result
[2024-06-09 15:23] LABS: VBG Base Excess 9.7 mmol/L; VBG HCO3 34 mmol/L (22-26); VBG pCO2 44 mmHg; VBG pH 7.49 (7.32-7.43); VBG pO2 80 mmHg
[2024-06-09] MEDS: 0.9 % Sodium Chloride Flush 3 ML SYRINGE IVFLUSH (15:38)
[2024-06-09] MEDS: Chlorhexidine Gluc Oral Rinse 15 ML MOUTHWASH BUCCAL ×2 (15:40→22:07)
[2024-06-09 15:44] LABS: Alanine Aminotransferase 39 U/L (0-31); Albumin Level 3.7 g/dL (3.5-5.0); Anion Gap 15 (12-20); Aspartate Amino Transferase 23 U/L (5-31); Bilirubin Total 0.6 mg/dL (0.0-1.0); Blood Urea Nitrogen 11 mg/dL (9-16); Calcium 8.8 mg/dL (8.4-10.2); Carbon Dioxide 28 mmol/L (22-29); Chloride 101 mmol/L (96-108); Creatinine Clr Calc Pharmacy 68.3; Estimated Glomerular Filt Rate > 60; Glucose Random 212 mg/dL (60-115); Magnesium 2.1 mg/dL (1.6-2.6); Phosphorus 4.1 mg/dL (2.7-4.5); Potassium 3.2 mmol/L (3.3-5.1); Sodium 141 mmol/L (135-145)
[2024-06-09 16:04] LABS: Alkaline Phosphatase 48 U/L (39-117)
[2024-06-09] MEDS: Potassium Chloride/H20 10 MEQ/100 ML PIGGYBACK 100 MEQ IV ×4 (17:00→20:04)
--- NOTE | 2024-06-09 19:31 | PC.NURSE ---
Neuro: patient arrived to unit from [facility] at approx 1135, MIGRATION AGENT called on floor for hypoxia, patient following commands and answering questions appropriately, patient was sedated for intubation and placed on propofol and fentanyl gtt as ordered to maintain synchrony with vent.? Cardiac: SR on arrival, trace edema to lower extremities, patient became Mike after sedation maintaining 50-56, MD aware.?? Resp: patient intubated at 1159 7.5 ETT at 25 marker at the teeth, positive color change noted and Lung sounds diminished throughout, but notably more diminished on the right side, MD aware, O2 Sat 88-92% on 100% FiO2, respiratory lavaged x2 for flank red blood,? lavaged x1? and O2 sat increased to 93-96% on 80%FiO2 on Vent ACVC with a rate of 16, see vent assessment? GI/: OG tube in place and clamped.? Integumentary/Musculoskeletal: skin intact, reposition every 2 hours to maintain skin integrity.
[2024-06-10] VITALS (34 sets, daily range): BP systolic 88–121; BP diastolic 40–60; PULSE 50–95; RESP 15–20; TEMP 34.6–38.2; O2SAT 88–97; BMI 33.4
[2024-06-10] MEDS: propofoL 1,000 MG/100 ML VIAL 4.97 MG IVCONT ×2 (02:49→15:59)
[2024-06-10] MEDS: fentaNYL citrate/NS 1,000 MCG/100 ML PLAST..BAG 5 MCG IVCONT ×2 (03:00→15:58)
[2024-06-10] MEDS: Piperacillin Sodium/Tazobactam 4.5 GM in 0.9 % Sodium Chloride 100 ML IV ×4 (03:56→23:04)
[2024-06-10 05:43] LABS: VBG HCO3 31 mmol/L (22-26); VBG pCO2 31 mmHg; VBG pO2 52 mmHg
[2024-06-10 05:49] LABS: Basophils Percent Auto 0.2 % (0-2); Eosinophils Absolute Auto 0.2 X10*3/uL (0.0-0.4); Eosinophils Percent Auto 1.4 % (0-4); Hematocrit 32.8 % (37.0-47.0); Imm Gran Abs Auto 0.24 X10*3/uL (0.00-0.03); Imm Gran Pct Auto 1.4 % (0.0-0.4); Lymphocytes Absolute Auto 2.7 X10*3/uL (1.2-4.9); Lymphocytes Percent Auto 15.5 % (20-40); MANUAL DIFF FLAG SCAN; Mean Corpuscular HGB Conc 33.5 g/dl (31.0-35.0); Mean Corpuscular Hemoglobin 29.6 pg (27.0-33.0); Mean Corpuscular Volume 88.2 fL (80.0-98.0); Mean Platelet Volume 10.2 fL (9.4-12.3); Monocytes Absolute Auto 1.5 X10*3/uL (0.1-1.2); Monocytes Percent Auto 8.8 % (2-11); Neutrophils Absolute Auto 12.6 x10*3/uL (2.0-8.3); Neutrophils Percent Auto 72.7 % (45-73); Platelet Count 232 X10*3/uL (160-400); Red Blood Count 3.72 X10*6/uL (4.20-5.50); Red Cell Distribution Width 13.5 % (11.0-16.0); SCAN SMEAR FLAG 1; White Blood Count 17.3 X10*3/uL (4.8-10.8)
[2024-06-10 06:04] LABS: Albumin Level 3.1 g/dL (3.5-5.0); Anion Gap 12 (12-20); Blood Urea Nitrogen 12 mg/dL (9-16); Calcium 8.4 mg/dL (8.4-10.2); Carbon Dioxide 27 mmol/L (22-29); Chloride 105 mmol/L (96-108); Creatinine Clr Calc Pharmacy 68.3; Estimated Glomerular Filt Rate > 60; Glucose Random 113 mg/dL (60-115); Phosphorus 2.8 mg/dL (2.7-4.5); Potassium 3.1 mmol/L (3.3-5.1); Sodium 141 mmol/L (135-145)
[2024-06-10 06:05] LABS: Venous Blood Gas Refer to POC result
[2024-06-10 06:07] LABS: SLIDE REVIEW VERIFIED
--- NOTE | 2024-06-10 06:41 | PC.NURSE ---
Upon initial assessment at 2000- Tmax 100.0 via core bladder probe. Pt sedated on propofol/fentanyl gtts, RASS -2/3, titrated down as tolerated d/t HR dropping to 40s. Levophed gtt infusing and titrated to maintain MAP > 65. ETT #7.5, 24 cm at lip, on ACVC settings, FiO2 titrated to 90% to maintain SpO2 > 92%. Desaturated to low 80s, RT notified and pt lavaged for a moderate amount of thick blood-tinged secretions. NPO- OGT clamped. Small in place, UOP approx 30 mL/hr. No BM. Skin overall intact. Repositioned in bed q2hr with wedges/pillows. Bed locked in lowest position, alarm on. Pt called and updated on pt status/plan of care. See EMR/flowshett for further details.
[2024-06-10] MEDS: CYCLOSPORINE 0.05% 1 EACH EYE-BOTH ×2 (07:45→21:08)
[2024-06-10] MEDS: 0.9 % Sodium Chloride Flush 3 ML SYRINGE IVFLUSH ×3 (07:45→22:51)
[2024-06-10] MEDS: Chlorhexidine Gluc Oral Rinse 15 ML MOUTHWASH BUCCAL ×3 (07:46→21:08)
[2024-06-10] MEDS: Doxycycline Hyclate 100 MG in 0.9 % Sodium Chloride 250 ML 166.67 MG IV ×2 (07:46→21:08)
[2024-06-10] MEDS: Potassium Chloride Packet 20 MEQ PACKET 40 MEQ PO (07:46)
[2024-06-10] MEDS: Famotidine/PF 20 MG/2 ML VIAL IVPUSH (07:47)
--- NOTE | 2024-06-10 10:13 | P.PNCC_ITS ---
Subjective Subjective Date of Service: 06/10/24 Interval History: 73-year-old lady with underlying history of asthma, AFib on anticoagulation, hyperparathyroidism status post parathyroidectomy admitted on 05/26/2024 with dyspnea and hypoxia her initial CT chest demonstrated no evidence of pulmonary emboli but chronic bibasilar atelectasis. Hospital course significant for recurrent hypoxic events that appears to be related to recurrent pulmonary aspiration requiring intubation on 06/02 2024, extubated 06/03/2024. While intubating bronchoscopic clearance demonstrated large burden of thick secretions with cultures negative to date. On 06/09/2024 patient has an asthma episode of respiratory distress with refractory hypoxia likely secondary to aspiration requiring transfer to intensive care unit and intubation. Events overnight. FiO2 requirements are improving. Critical Care Time (minutes): 60 Physical Exam 2 Vital Signs: Vital Signs: Last Vital Signs Temp 99.9 F 06/10/24 10:00 Pulse 60 06/10/24 10:00 Resp 16 06/10/24 10:00 BP 105/52 L 06/10/24 10:00 Pulse Ox 96 06/10/24 10:00 O2 Del Method Mechanical Ventil ation 06/10/24 10:00 O2 Flow Rate 45 06/09/24 07:40 FiO2 90 06/10/24 10:00 Oxygen Flow Rate 2 05/25/24 23:08 BMI result Body Mass Index 33.4 Const: General: no acute distress, awake and other (Sedated on the vent) Eyes: Sclerae: sclerae normal EOM: EOMs intact bilaterally Neck: Neck: Yes no lymphadenopathy, Yes trachea midline and Yes supple Resp: Auscultation: crackles (Bibasilar) Cardio: Rate: bradycardic Rhythm: regular rhythm Heart sounds: no gallops, no murmurs and no rubs GI: Palpation (GI): Soft to palpation and Other GI palpation findings present ( Nontender) Auscultation: normal bowel sounds Extrem: General: Yes no pedal edema, No clubbing and No cyanosis Objective Data Labs 06/10/24 05:27 06/10/24 05:27 Labs: Laboratory Results - last 24 hr 06/09/24 06/09/24 06/09/24 13:41 15:03 15:13 WBC 21.0 H RBC 4.20 Hgb 12.3 Hct 36.5 L MCV 86.9 MCH 29.3 MCHC 33.7 RDW 13.2 Plt Count 336 MPV 9.8 Immature Gran % (Auto) 1.6 H Neut % (Auto) 85.9 H Lymph % (Auto) 7.4 L [place] % (Auto) 4.6 Eos % (Auto) 0.4 Baso % (Auto) 0.1 Lymph # (Auto) 1.6 [place] # (Auto) 1.0 Eos # (Auto) 0.1 Baso # (Auto) 0.0 Abs Immat Gran (auto) 0.34 H Absolute Neuts (auto) 18.0 H Absolute Nucleated RBC 0.000 Nucleated RBC % (auto) 0.0 Smear Tech's Comments VBG pH 7.49 H VBG pCO2 44 VBG pO2 80 VBG HCO3 34 H VBG O2 Saturation 98.0 VBG Base Excess 9.7 Sodium 141 Potassium 3.2 L Chloride 101 Carbon Dioxide 28 Anion Gap 15 BUN 11 Creatinine 0.72 Estim Creat Clear Calc 68.3 Estimated GFR > 60 POC Glucose 203 H Random Glucose 212 H Calcium 8.8 Phosphorus 4.1 Magnesium 2.1 Total Bilirubin 0.6 AST 23 ALT 39 H Alkaline Phosphatase 48 Total Protein 6.0 L Albumin 3.7 06/10/24 06/10/24 05:27 05:29 WBC 17.3 H RBC 3.72 L Hgb 11.0 L Hct 32.8 L MCV 88.2 MCH 29.6 MCHC 33.5 RDW 13.5 Plt Count 232 D MPV 10.2 Immature Gran % (Auto) 1.4 H Neut % (Auto) 72.7 Lymph % (Auto) 15.5 L [place] % (Auto) 8.8 Eos % (Auto) 1.4 Baso % (Auto) 0.2 Lymph # (Auto) 2.7 [place] # (Auto) 1.5 H Eos # (Auto) 0.2 Baso # (Auto) 0.0 Abs Immat Gran (auto) 0.24 H Absolute Neuts (auto) 12.6 H Absolute Nucleated RBC 0.000 Nucleated RBC % (auto) 0.0 Smear Tech's Comments VERIFIED VBG pH 7.60 H* VBG pCO2 31 VBG pO2 52 VBG HCO3 31 H VBG O2 Saturation 88.0 VBG Base Excess 10.0 Sodium 141 Potassium 3.1 L Chloride 105 Carbon Dioxide 27 Anion Gap 12 BUN 12 Creatinine 0.72 Estim Creat Clear Calc 68.3 Estimated GFR > 60 POC Glucose Random Glucose 113 Calcium 8.4 Phosphorus 2.8 Magnesium 2.0 Total Bilirubin AST ALT Alkaline Phosphatase Total Protein Albumin 3.1 L Microbiology Microbiology Results: Microbiology 06/02/24 09:42 Blood - Venous Blood Culture - Final No growth after 5 days. 06/02/24 09:42 Blood - Venous Blood Culture - Final No growth after 5 days. 06/02/24 11:44 Bronchial Alveo Lavage Gram Stain - Final 06/02/24 11:44 Bronchial Alveo Lavage - Final No growth after 2 days 05/25/24 23:41 Blood - Venous Blood Culture - Final No growth after 5 days. 05/25/24 23:31 Blood - Venous Blood Culture - Final No growth after 5 days. Progress Note: A&P Assessment and plan (1) Pulmonary aspiration: Status: Acute (2) Acute respiratory failure with hypoxia: Status: Resolved (3) Pulmonary abscess: Status: Acute Plan Assessment: 73-year-old lady admitted with dyspnea and hypoxia likely secondary to recurrent pulmonary aspiration, now with another event of pulmonary aspiration, also in a background of minor hemoptysis, now requiring ventilatory support Plan: Neuro: No acute issues. Cardiac: No acute issues. Hypotension is secondary to sedation requirements. Pulmonary: Acute hypoxic respiratory failure secondary to pulmonary aspiration requiring ventilatory support. CT chest also demonstrating left-sided abscess. Continue empiric broad-spectrum antibiotics. Episodes of hemoptysis, likely secondary to prior anticoagulation with apixaban, continue to monitor clinically. Renal: No acute issues. Endo: No acute issues. GI: No acute issues. ID: Likely underlying pulmonary abscess on the background of chronic aspiration, continue broad-spectrum antibiotics. Heme/Onc: No acute issues. Psych: No acute issues. Miscellaneous: No acute issues. Prophylaxis: Pneumatic compression, famotidine Diet: Tube feeds Critical care time spent: 60 minutes Quality Stroke Does the patient have a stroke diagnosis?: No VTE Prior VTE?: No VTE Risk Level:: Medical - moderate - high VTE Device Contraindication: N/A - Device Ordered VTE Drug Contraindication: Treatment Not Indicated
--- NOTE | 2024-06-10 10:51 | MHC.CLN ---
PT IS RE-INTUBATED AND SEDATED DISCUSSED AT ROUNDS WITH MD-TO START TF TODAY PT RECEIVING PROMOTE AT MAX GOAL RATE 60ML/HR TO PROVIDE 1440KCALS (24KCALS/KG), 90G PROTEIN (1.5G/KG), 1208ML TOTAL WATER FROM FORMULA MONITOR TOLERANCE AND LYTES SEE FULL CLINICAL NUTRITION ASSESSMENT
[2024-06-10] MEDS: Potassium Chloride Packet 20 MEQ PACKET 60 MEQ PO (12:14)
[2024-06-10] MEDS: Norepinephrine Bitartrate/D5W 8 MG/250 ML PLAST..BAG 7.77 MG IVCONT (16:00)
[2024-06-10] MEDS: Acetaminophen 325 MG TABLET 650 MG PO (21:09)
[2024-06-11] VITALS (36 sets, daily range): BP systolic 90–150; BP diastolic 33–83; PULSE 50–116; RESP 12–21; TEMP 34.6–38.6; O2SAT 85–97; BMI 31.2
--- NOTE | 2024-06-11 | ECG_ITS ---
Test Reason : rhythm change Blood Pressure : */* mmHG Vent. Rate : 96 BPM Atrial Rate : * BPM P-R Int : * ms QRS Dur : 80 ms QT Int : 360 ms P-R-T Axes : * 39 34 degrees QTcB Int : 454 ms Sinus rhythm with probable atrial flutter run? Abnormal ECG When compared with ECG of 25-May-2024 23:11, rhythm change Referred By: Aniyah Lynch Electronically Signed By: YADIRA HELM
--- NOTE | 2024-06-11 00:06 | PC.NURSE ---
Neuro: alert but sedated to comfort, nods yes and no with questions, increased Fent as per MAR for noted discomfort.?? Cardiac: SR to SB, Levophed titrated as per protocol, see MAR Resp: patient suctioned, multiple times this shift for bloody secretions, tolerating vent well on current sedation, able to decrease, FIO2 from 90% to 75% this shift, O2 sat 92-94%? GI/: OG tube in place, tube feeds started as ordered and increased to at 1800, tolerating well.? Integumentary/Musculoskeletal: skin intact, reposition every 2 hours to maintain skin integrity. report given to on coming RN at 1844
[2024-06-11] MEDS: Piperacillin Sodium/Tazobactam 4.5 GM in 0.9 % Sodium Chloride 100 ML IV ×4 (03:53→22:42)
[2024-06-11] MEDS: fentaNYL citrate/NS 1,000 MCG/100 ML PLAST..BAG 5 MCG IVCONT (05:28)
[2024-06-11 05:53] LABS: VBG Base Excess 5.9 mmol/L; VBG HCO3 27 mmol/L (22-26); VBG pCO2 28 mmHg; VBG pH 7.58 (7.32-7.43); VBG pO2 66 mmHg
[2024-06-11 05:54] LABS: MANUAL DIFF FLAG NO
[2024-06-11 05:57] LABS: Basophils Percent Auto 0.2 % (0-2); Eosinophils Absolute Auto 0.4 X10*3/uL (0.0-0.4); Eosinophils Percent Auto 2.5 % (0-4); Hematocrit 32.5 % (37.0-47.0); Hemoglobin 10.8 g/dl (12.0-16.0); Imm Gran Abs Auto 0.15 X10*3/uL (0.00-0.03); Lymphocytes Absolute Auto 1.8 X10*3/uL (1.2-4.9); Lymphocytes Percent Auto 12.3 % (20-40); Mean Corpuscular HGB Conc 33.2 g/dl (31.0-35.0); Mean Corpuscular Hemoglobin 29.8 pg (27.0-33.0); Mean Corpuscular Volume 89.8 fL (80.0-98.0); Mean Platelet Volume 10.1 fL (9.4-12.3); Monocytes Absolute Auto 1.5 X10*3/uL (0.1-1.2); Monocytes Percent Auto 9.8 % (2-11); Neutrophils Absolute Auto 11.1 x10*3/uL (2.0-8.3); Neutrophils Percent Auto 74.2 % (45-73); Platelet Count 230 X10*3/uL (160-400); Red Blood Count 3.62 X10*6/uL (4.20-5.50); Red Cell Distribution Width 13.9 % (11.0-16.0)
[2024-06-11 06:17] LABS: Anion Gap 14 (12-20); Blood Urea Nitrogen 13 mg/dL (9-16); Calcium 8.6 mg/dL (8.4-10.2); Carbon Dioxide 22 mmol/L (22-29); Chloride 109 mmol/L (96-108); Estimated Glomerular Filt Rate > 60; Glucose Random 154 mg/dL (60-115); Magnesium 2.1 mg/dL (1.6-2.6); Phosphorus 2.7 mg/dL (2.7-4.5); Sodium 140 mmol/L (135-145)
[2024-06-11] MEDS: 0.9 % Sodium Chloride Flush 3 ML SYRINGE IVFLUSH ×2 (07:51→16:58)
[2024-06-11] MEDS: Doxycycline Hyclate 100 MG in 0.9 % Sodium Chloride 250 ML 166.67 MG IV ×2 (07:52→20:21)
[2024-06-11] MEDS: Chlorhexidine Gluc Oral Rinse 15 ML MOUTHWASH BUCCAL ×3 (07:52→20:21)
[2024-06-11] MEDS: Famotidine/PF 20 MG/2 ML VIAL IVPUSH (07:53)
[2024-06-11] MEDS: Albumin Human 25 % 100 ML IV ×3 (09:45→19:32)
[2024-06-11] MEDS: CYCLOSPORINE 0.05% 1 EACH EYE-BOTH ×2 (09:50→20:21)
--- NOTE | 2024-06-11 09:54 | P.PNCC_ITS ---
Subjective Subjective Date of Service: 06/11/24 Interval History: 73-year-old lady with underlying history of asthma, AFib on anticoagulation, hyperparathyroidism status post parathyroidectomy admitted on 05/26/2024 with dyspnea and hypoxia her initial CT chest demonstrated no evidence of pulmonary emboli but chronic bibasilar atelectasis. Hospital course significant for recurrent hypoxic events that appears to be related to recurrent pulmonary aspiration requiring intubation on 06/02 2024, extubated 06/03/2024. While intubating bronchoscopic clearance demonstrated large burden of thick secretions with cultures negative to date. On 06/09/2024 patient has an asthma episode of respiratory distress with refractory hypoxia likely secondary to aspiration requiring transfer to intensive care unit and intubation. No events overnight. FiO2 requirements continue to improve. Critical Care Time (minutes): 60 Physical Exam 2 Vital Signs: Vital Signs: Last Vital Signs Temp 100.6 F H 06/11/24 09:00 Pulse 72 06/11/24 09:00 Resp 18 06/11/24 09:00 BP 113/55 L 06/11/24 09:00 Pulse Ox 85 L 06/11/24 09:00 O2 Del Method Mechanical Ventil ation 06/11/24 09:00 O2 Flow Rate 45 06/09/24 07:40 FiO2 60 06/11/24 09:01 Oxygen Flow Rate 2 05/25/24 23:08 BMI result Body Mass Index 31.2 Const: General: no acute distress and other (Sedated on the vent) Eyes: Sclerae: sclerae normal EOM: EOMs intact bilaterally Neck: Neck: Yes no lymphadenopathy, Yes trachea midline and Yes supple Resp: Effort & Inspection: normal respiratory effort and no respiratory distress Auscultation: crackles (Mild bibasilar) Cardio: Rate: regular rate Rhythm: regular rhythm Heart sounds: no gallops, no murmurs and no rubs GI: Palpation (GI): Soft to palpation and Other GI palpation findings present ( Nontender) Auscultation: normal bowel sounds Extrem: General: Yes no pedal edema, No clubbing and No cyanosis Objective Data Labs 06/11/24 05:47 06/11/24 05:47 Labs: Laboratory Results - last 24 hr 06/11/24 06/11/24 05:47 05:49 WBC 15.0 H RBC 3.62 L Hgb 10.8 L Hct 32.5 L MCV 89.8 MCH 29.8 MCHC 33.2 RDW 13.9 Plt Count 230 MPV 10.1 Immature Gran % (Auto) 1.0 H Neut % (Auto) 74.2 H Lymph % (Auto) 12.3 L [place] % (Auto) 9.8 Eos % (Auto) 2.5 Baso % (Auto) 0.2 Lymph # (Auto) 1.8 [place] # (Auto) 1.5 H Eos # (Auto) 0.4 Baso # (Auto) 0.0 Abs Immat Gran (auto) 0.15 H Absolute Neuts (auto) 11.1 H Absolute Nucleated RBC 0.000 Nucleated RBC % (auto) 0.0 VBG pH 7.58 H VBG pCO2 28 VBG pO2 66 VBG HCO3 27 H VBG O2 Saturation 96.0 VBG Base Excess 5.9 Sodium 140 Potassium 5.0 D Chloride 109 H Carbon Dioxide 22 Anion Gap 14 BUN 13 Creatinine 0.72 Estim Creat Clear Calc 66.0 Estimated GFR > 60 Random Glucose 154 H Calcium 8.6 Phosphorus 2.7 Magnesium 2.1 Albumin 3.0 L Microbiology Microbiology Results: Microbiology 06/02/24 09:42 Blood - Venous Blood Culture - Final No growth after 5 days. 06/02/24 09:42 Blood - Venous Blood Culture - Final No growth after 5 days. 06/02/24 11:44 Bronchial Alveo Lavage Gram Stain - Final 06/02/24 11:44 Bronchial Alveo Lavage - Final No growth after 2 days 05/25/24 23:41 Blood - Venous Blood Culture - Final No growth after 5 days. 05/25/24 23:31 Blood - Venous Blood Culture - Final No growth after 5 days. Progress Note: A&P Assessment and plan (1) Pulmonary aspiration: Status: Acute (2) Pulmonary abscess: Status: Acute (3) Acute hypoxemic respiratory failure: Status: Acute Plan Assessment: 73-year-old lady admitted with dyspnea and hypoxia likely secondary to recurrent pulmonary aspiration, now with another event of pulmonary aspiration, also in a background of minor hemoptysis, now requiring ventilatory support Plan: Neuro: No acute issues. Cardiac: No acute issues. Pulmonary: Acute hypoxic respiratory failure secondary to pulmonary aspiration requiring ventilatory support, continue to titrate off as tolerated. CT chest also demonstrating left-sided abscess. Continue empiric broad-spectrum antibiotics. Episodes of hemoptysis, likely secondary to prior anticoagulation with apixaban, continue to monitor clinically. Renal: No acute issues. Endo: No acute issues. GI: No acute issues. ID: Likely underlying pulmonary abscess on the background of chronic aspiration, continue broad-spectrum antibiotics. Heme/Onc: No acute issues. Psych: No acute issues. Miscellaneous: No acute issues. Prophylaxis: Pneumatic compression, famotidine Diet: Tube feeds Critical care time spent: 60 minutes Quality Stroke Does the patient have a stroke diagnosis?: No VTE Prior VTE?: No VTE Risk Level:: Medical - moderate - high VTE Device Contraindication: N/A - Device Ordered VTE Drug Contraindication: Treatment Not Indicated
--- NOTE | 2024-06-11 10:26 | MHC.SLORD ---
Speech Language Pathology Order Status: Pt remains intubated, MD consulted re:recc for MBSS after extubation as appropriate.
[2024-06-11 10:47] LABS: Venous Blood Gas Refer to POC result
--- NOTE | 2024-06-11 11:30 | MHC.CLN ---
F/U PT REMAINS INTUBATED AND SEDATED DISCUSSED AT ROUNDS WITH TF CURRENTLY AT 50ML/HR, TOLERATING WELL ADVANCING TO GOAL PT RECEIVING PROMOTE AT MAX GOAL RATE 60ML/HR TO PROVIDE 1440KCALS (24KCALS/KG), 90G PROTEIN (1.5G/KG), 1208ML TOTAL WATER FROM FORMULA MONITOR TOLERANCE AND LYTES
--- NOTE | 2024-06-11 13:45 | MHC.CM.PN ---
Pt remains intubated in ICU: Possible reduction in FiO2 today: Pt is at continued risk for aspirations per MD - mainly secretions. Pt originally from home w/spouse but will likely require STR following prolonged hospitalization. Will refer to STR once pt's needs can be better assessed.
[2024-06-11] MEDS: Norepinephrine Bitartrate/D5W 8 MG/250 ML PLAST..BAG 4.66 MG IVCONT (17:16)
[2024-06-11] MEDS: propofoL 1,000 MG/100 ML VIAL 4.97 MG IVCONT (22:14)
[2024-06-12] VITALS (33 sets, daily range): BP systolic 97–151; BP diastolic 39–96; PULSE 76–155; RESP 13–22; TEMP 34.9–38.5; O2SAT 91–99; BMI 33.3
[2024-06-12] MEDS: fentaNYL citrate/NS 1,000 MCG/100 ML PLAST..BAG 5 MCG IVCONT (01:41)
[2024-06-12] MEDS: Albumin Human 25 % 100 ML IV (01:43)
[2024-06-12] MEDS: Piperacillin Sodium/Tazobactam 4.5 GM in 0.9 % Sodium Chloride 100 ML IV ×4 (03:34→22:31)
[2024-06-12 05:40] LABS: ABG Base Excess 8.6 mmol/L; ABG HCO3 29 mmol/L (22-26); ABG pCO2 30 mmHg (32-45); ABG pO2 73 mmHg (83-108)
[2024-06-12 05:47] LABS: MANUAL DIFF FLAG NO
[2024-06-12] MEDS: propofoL 1,000 MG/100 ML VIAL 4.97 MG IVCONT (06:00)
[2024-06-12 06:08] LABS: Albumin Level 3.7 g/dL (3.5-5.0); Anion Gap 13 (12-20); Basophils Percent Auto 0.2 % (0-2); Blood Urea Nitrogen 10 mg/dL (9-16); Calcium 8.7 mg/dL (8.4-10.2); Carbon Dioxide 26 mmol/L (22-29); Chloride 105 mmol/L (96-108); Creatinine Clr Calc Pharmacy 75.5; Eosinophils Absolute Auto 0.3 X10*3/uL (0.0-0.4); Eosinophils Percent Auto 2.2 % (0-4); Estimated Glomerular Filt Rate > 60; Glucose Random 177 mg/dL (60-115); Hemoglobin 10.3 g/dl (12.0-16.0); Imm Gran Abs Auto 0.12 X10*3/uL (0.00-0.03); Imm Gran Pct Auto 0.9 % (0.0-0.4); Lymphocytes Absolute Auto 1.3 X10*3/uL (1.2-4.9); Lymphocytes Percent Auto 10.4 % (20-40); Magnesium 2.2 mg/dL (1.6-2.6); Mean Corpuscular HGB Conc 33.2 g/dl (31.0-35.0); Mean Corpuscular Hemoglobin 29.9 pg (27.0-33.0); Mean Corpuscular Volume 89.9 fL (80.0-98.0); Mean Platelet Volume 10.3 fL (9.4-12.3); Monocytes Absolute Auto 1.3 X10*3/uL (0.1-1.2); Monocytes Percent Auto 9.9 % (2-11); Neutrophils Absolute Auto 9.8 x10*3/uL (2.0-8.3); Neutrophils Percent Auto 76.4 % (45-73); Phosphorus 2.1 mg/dL (2.7-4.5); Platelet Count 196 X10*3/uL (160-400); Potassium 3.3 mmol/L (3.3-5.1); Red Blood Count 3.45 X10*6/uL (4.20-5.50); Red Cell Distribution Width 13.5 % (11.0-16.0); Sodium 141 mmol/L (135-145); White Blood Count 12.9 X10*3/uL (4.8-10.8)
[2024-06-12] MEDS: propofoL 200 MG/20 ML VIAL 50 MG IVPUSH (08:29)
[2024-06-12] MEDS: 0.9 % Sodium Chloride Flush 3 ML SYRINGE IVFLUSH ×3 (08:37→22:31)
[2024-06-12] MEDS: Doxycycline Hyclate 100 MG in 0.9 % Sodium Chloride 250 ML 166.67 MG IV ×2 (08:40→20:56)
[2024-06-12] MEDS: Potassium Phosphate/NS 15 MMOL/250 ML PLAST..BAG 62.5 MMOL IV ×2 (08:40→15:32)
[2024-06-12] MEDS: Chlorhexidine Gluc Oral Rinse 15 ML MOUTHWASH BUCCAL ×2 (08:41→15:22)
[2024-06-12] MEDS: Potassium Chloride Packet 20 MEQ PACKET 40 MEQ PO (08:41)
[2024-06-12] MEDS: Famotidine/PF 20 MG/2 ML VIAL IVPUSH (08:41)
[2024-06-12] MEDS: CYCLOSPORINE 0.05% 1 EACH EYE-BOTH ×2 (08:43→21:44)
--- NOTE | 2024-06-12 08:57 | PC.RT ---
Pt had bedside bronchoscopy this am.Pt hyper oxygenated with 100% fio2, pt vitals were monitored throughout. Pt uriah procedure well, returned to previous vent settings without issue.
[2024-06-12] MEDS: Acetylcysteine 10 % 400 MG/4 ML VIAL INHALE ×2 (10:10→19:35)
[2024-06-12] MEDS: Albuterol Sulfate (0.083%) 2.5 MG/3 ML VIAL.NEB INHALE ×2 (10:10→19:36)
[2024-06-12] MEDS: Amiodarone/Dextrose 150 MG/100 ML PLAST..BAG 600 MG IV (10:33)
[2024-06-12] MEDS: Amiodarone HCL 900 MG in 0.9 % Sodium Chloride 500 ML 34.53 MG IVCONT (10:43)
--- NOTE | 2024-06-12 14:18 | P.PNCC_ITS ---
Subjective Subjective Date of Service: 06/12/24 Interval History: 73-year-old lady with underlying history of asthma, AFib on anticoagulation, hyperparathyroidism status post parathyroidectomy admitted on 05/26/2024 with dyspnea and hypoxia her initial CT chest demonstrated no evidence of pulmonary emboli but chronic bibasilar atelectasis. Hospital course significant for recurrent hypoxic events that appears to be related to recurrent pulmonary aspiration requiring intubation on 06/02 2024, extubated 06/03/2024. While intubating bronchoscopic clearance demonstrated large burden of thick secretions with cultures negative to date. On 06/09/2024 patient has an asthma episode of respiratory distress with refractory hypoxia likely secondary to aspiration requiring transfer to intensive care unit and intubation. No events overnight. FiO2 requirements stabilized around 50% FiO2. Critical Care Time (minutes): 60 Physical Exam 2 Vital Signs: Vital Signs: Last Vital Signs Temp 101.3 F H 06/12/24 13:00 Pulse 144 H 06/12/24 13:00 Resp 18 06/12/24 13:00 BP 107/59 L 06/12/24 13:00 Pulse Ox 95 06/12/24 13:00 O2 Del Method Mechanical Ventil ation 06/12/24 13:00 O2 Flow Rate 94 06/12/24 05:00 FiO2 50 06/12/24 13:00 Oxygen Flow Rate 2 05/25/24 23:08 BMI result Body Mass Index 33.3 Const: General: no acute distress and alert HEENT: Head: Yes atraumatic Eyes: General: appearance normal, both eyes and all related structures S clerae: sclerae normal EOM: EOMs intact bilaterally Neck: Neck: Yes supple Lymphatic: no lymphadenopathy noted Resp: Auscultation: clear to auscultation bilaterally Cardio: Rate: tachycardic Rhythm: regular rhythm Heart sounds: no gallops, no murmurs and no rubs GI: Palpation (GI): Soft to palpation and nontender Auscultation: normal bowel sounds Skin: General skin exam: other ( warm) Extrem: General: No clubbing, No cyanosis and No edema Objective Data Labs 06/12/24 05:32 06/12/24 05:32 Labs: Laboratory Results - last 24 hr 06/12/24 06/12/24 05:32 05:35 WBC 12.9 H RBC 3.45 L Hgb 10.3 L Hct 31.0 L MCV 89.9 MCH 29.9 MCHC 33.2 RDW 13.5 Plt Count 196 MPV 10.3 Immature Gran % (Auto) 0.9 H Neut % (Auto) 76.4 H Lymph % (Auto) 10.4 L [place] % (Auto) 9.9 Eos % (Auto) 2.2 Baso % (Auto) 0.2 Lymph # (Auto) 1.3 [place] # (Auto) 1.3 H Eos # (Auto) 0.3 Baso # (Auto) 0.0 Abs Immat Gran (auto) 0.12 H Absolute Neuts (auto) 9.8 H Absolute Nucleated RBC 0.000 Nucleated RBC % (auto) 0.0 O2 Saturation 98.0 ABG pH at Pt Temp 7.60 H* ABG pCO2 at Pt Temp 30 L ABG pO2 at Pt Temp 73 L ABG HCO3 29 H ABG Base Excess (Actual) 8.6 Sodium 141 Potassium 3.3 D Chloride 105 Carbon Dioxide 26 Anion Gap 13 BUN 10 Creatinine 0.63 Estim Creat Clear Calc 75.5 Estimated GFR > 60 Random Glucose 177 H Calcium 8.7 Phosphorus 2.1 L Magnesium 2.2 Albumin 3.7 Microbiology Microbiology Results: Microbiology 06/02/24 09:42 Blood - Venous Blood Culture - Final No growth after 5 days. 06/02/24 09:42 Blood - Venous Blood Culture - Final No growth after 5 days. 06/02/24 11:44 Bronchial Alveo Lavage Gram Stain - Final 06/02/24 11:44 Bronchial Alveo Lavage - Final No growth after 2 days 05/25/24 23:41 Blood - Venous Blood Culture - Final No growth after 5 days. 05/25/24 23:31 Blood - Venous Blood Culture - Final No growth after 5 days. Progress Note: A&P Assessment and plan (1) Acute hypoxemic respiratory failure: Status: Acute (2) Pulmonary abscess: Status: Acute (3) Pulmonary aspiration: Status: Acute Plan Assessment: 73-year-old lady admitted with dyspnea and hypoxia likely secondary to recurrent pulmonary aspiration, now with another event of pulmonary aspiration, also in a background of minor hemoptysis, now requiring ventilatory support Plan: Neuro: No acute issues. Cardiac: No acute issues. Pulmonary: Acute hypoxic respiratory failure secondary to pulmonary aspiration requiring ventilatory support, continue to titrate off as tolerated. CT chest also demonstrating left-sided abscess. Continue empiric broad-spectrum antibiotics. Bedside bronchoscopy this a.m. for secretion clearance. Renal: No acute issues. Endo: No acute issues. GI: No acute issues. ID: Likely underlying pulmonary abscess on the background of chronic aspiration, continue broad-spectrum antibiotics. Heme/Onc: No acute issues. Psych: No acute issues. Miscellaneous: No acute issues. Prophylaxis: Pneumatic compression, famotidine Diet: Tube feeds Critical care time spent: 60 minutes Quality Stroke Does the patient have a stroke diagnosis?: No VTE Prior VTE?: No VTE Risk Level:: Medical - moderate - high VTE Device Contraindication: N/A - Device Ordered VTE Drug Contraindication: Treatment Not Indicated
[2024-06-12] MEDS: ondansetron HCL 4 MG/2 ML VIAL IVPUSH (18:34)
--- NOTE | 2024-06-12 18:51 | PC.NURSE ---
Assumed care of patient 0700. Pt on ventillator with ACVC settings rate 16/volume 350/ PEEP 5.0, FiO2 50%. Pt was SR on tele and had sudden increase in HR up to 150 Aflutter. Plan per MD for bronchoscopy to visualize status of lungs. 08:29 consent obtained at bedside by MD from [facility]. 08:29 Time out performed. Propofol 50 mg IVP given by RN, Levophed gtt increased to 0.05. 08:30 bronchoscopy started. MD visualized large thick pink secretions. Suctioning with cold sterile saline provided. 08:35 Bronchoscopy finished. Pt vitals monitored. Amio load dose and amio gtt started per MD order. Additional IV access obtained to left forearm before starting gtt.? 13:30 Small catheter removed. Purewick in place. Pt DTV 19:30 14:45 Per MD patient transitioned to PSV 8/5.0, 40%. Volumes 350.? Pt extubated 15:40 to 50% Venturi mask. Pt later transitioned to 12L oxymizer NC. SaO2 96%.? Pt does frequent self suctioning with productive cough producing thick pink and blood streaked secretions. New prn Zofran added and given for nausea.? Pt voided one small void via purewick 17:30. DTV 23:30
[2024-06-12] MEDS: Norepinephrine Bitartrate/D5W 8 MG/250 ML PLAST..BAG 4.66 MG IVCONT (21:37)
[2024-06-12] MEDS: Digoxin 0.5 MG/2 ML AMPUL 0.25 MG IVPUSH (21:45)
[2024-06-13] VITALS (30 sets, daily range): BP systolic 106–154; BP diastolic 46–81; PULSE 69–126; RESP 12–21; TEMP 36.4–36.9; O2SAT 90–99; BMI 37.3
[2024-06-13] MEDS: Digoxin 0.5 MG/2 ML AMPUL 0.25 MG IVPUSH ×2 (01:44→06:03)
[2024-06-13] MEDS: Piperacillin Sodium/Tazobactam 4.5 GM in 0.9 % Sodium Chloride 100 ML IV ×4 (03:37→20:55)
[2024-06-13] MEDS: ondansetron HCL 4 MG/2 ML VIAL IVPUSH ×3 (04:13→20:15)
[2024-06-13 05:09] LABS: VBG Base Excess 6.6 mmol/L; VBG HCO3 32 mmol/L (22-26); VBG pCO2 49 mmHg; VBG pH 7.41 (7.32-7.43); VBG pO2 48 mmHg
[2024-06-13 05:46] LABS: Basophils Percent Auto 0.1 % (0-2); Eosinophils Absolute Auto 0.2 X10*3/uL (0.0-0.4); Eosinophils Percent Auto 1.4 % (0-4); Hematocrit 30.6 % (37.0-47.0); Hemoglobin 9.9 g/dl (12.0-16.0); Imm Gran Pct Auto 0.7 % (0.0-0.4); Lymphocytes Percent Auto 6.7 % (20-40); MANUAL DIFF FLAG SCAN; Mean Corpuscular HGB Conc 32.4 g/dl (31.0-35.0); Mean Corpuscular Hemoglobin 29.6 pg (27.0-33.0); Mean Corpuscular Volume 91.3 fL (80.0-98.0); Mean Platelet Volume 10.4 fL (9.4-12.3); Monocytes Absolute Auto 1.6 X10*3/uL (0.1-1.2); Monocytes Percent Auto 10.4 % (2-11); Neutrophils Absolute Auto 12.3 x10*3/uL (2.0-8.3); Neutrophils Percent Auto 80.7 % (45-73); Platelet Count 212 X10*3/uL (160-400); Red Blood Count 3.35 X10*6/uL (4.20-5.50); Red Cell Distribution Width 13.6 % (11.0-16.0); SCAN SMEAR FLAG 1; White Blood Count 15.2 X10*3/uL (4.8-10.8)
[2024-06-13 05:50] LABS: Venous Blood Gas Refer to POC result
[2024-06-13 06:05] LABS: Albumin Level 3.4 g/dL (3.5-5.0); Anion Gap 12 (12-20); Blood Urea Nitrogen 9 mg/dL (9-16); Calcium 8.9 mg/dL (8.4-10.2); Carbon Dioxide 28 mmol/L (22-29); Chloride 107 mmol/L (96-108); Creatinine Clr Calc Pharmacy 77.9; Estimated Glomerular Filt Rate > 60; Glucose Random 126 mg/dL (60-115); Magnesium 2.1 mg/dL (1.6-2.6); Phosphorus 2.2 mg/dL (2.7-4.5); Potassium 4.1 mmol/L (3.3-5.1); Sodium 143 mmol/L (135-145)
[2024-06-13 06:06] LABS: SLIDE REVIEW VERIFIED
--- NOTE | 2024-06-13 06:32 | PC.NURSE ---
CARE ASSUMED 7PM..AWAKE..ALERT..ORIENTED X3..REMAINS EXTUBATED...OXIMYZER CANNULA WEANED FROM 12 L/M TO 8 L/M WITH SAO2 96%...REMAINS WITH PRODUCTIVE COUGH...RAISES AND SELF SUCTIONS BLOODY THEODORE SECRETIONS...MONITOR ATRIAL FLUTTER HR 138-140 DESPITE AMIODARONE DRIP PER MAY...PROVIDER AWARE....DIGOXIN 0.25MG IV X3 DOSES OVERNIGHT..CONVERTED TO NSR AFTER 2ND DOSE OF DIGOXIN...3RD DOSE GIVEN PER PROVIDER..PURWIK CATHETER IN PLACE...HAD NOT VOIDED...23:20 BLADDER SCANNED 429ML...DENIED URGE TO VOID...PER PROVIDER STRAIGHT CATH HELD INITIALLY TO ASSESS IF WOULD BE ABLE TO VOID...02:40 BLDDER SCANNED >684..DENIED URGE TO VOID..STRAIGHT CATH'D 3PM FOR 750ML..LEVOPHED MAINTINED 0.03 MCG/KG/MIN
[2024-06-13] MEDS: Acetylcysteine 10 % 400 MG/4 ML VIAL INHALE ×2 (08:15→20:20)
[2024-06-13] MEDS: Albuterol Sulfate (0.083%) 2.5 MG/3 ML VIAL.NEB INHALE ×2 (08:16→20:20)
[2024-06-13] MEDS: 0.9 % Sodium Chloride Flush 3 ML SYRINGE IVFLUSH ×3 (08:35→23:25)
[2024-06-13] MEDS: Famotidine/PF 20 MG/2 ML VIAL IVPUSH (09:52)
[2024-06-13] MEDS: CYCLOSPORINE 0.05% 1 EACH EYE-BOTH ×2 (09:52→20:56)
--- NOTE | 2024-06-13 10:16 | P.PNCC_ITS ---
Subjective Subjective Date of Service: 06/13/24 Interval History: 73-year-old lady with underlying history of asthma, AFib on anticoagulation, hyperparathyroidism status post parathyroidectomy admitted on 05/26/2024 with dyspnea and hypoxia her initial CT chest demonstrated no evidence of pulmonary emboli but chronic bibasilar atelectasis. Hospital course significant for recurrent hypoxic events that appears to be related to recurrent pulmonary aspiration requiring intubation on 06/02 2024, extubated 06/03/2024. While intubating bronchoscopic clearance demonstrated large burden of thick secretions with cultures negative to date. On 06/09/2024 patient has an asthma episode of respiratory distress with refractory hypoxia likely secondary to aspiration requiring transfer to intensive care unit and intubation. Extubated 06/12/2024. No events overnight. Critical Care Time (minutes): 0 Physical Exam 2 Vital Signs: Vital Signs: Last Vital Signs Temp 98.0 F 06/13/24 08:00 Pulse 90 06/13/24 09:40 Resp 16 06/13/24 09:00 BP 147/67 H 06/13/24 09:40 Pulse Ox 95 06/13/24 09:00 O2 Del Method Oxymizer 06/13/24 07:00 O2 Flow Rate 6 06/13/24 09:00 FiO2 50 06/12/24 16:52 Oxygen Flow Rate 2 05/25/24 23:08 BMI result Body Mass Index 37.3 Const: General: no acute distress, alert and awake Eyes: Sclerae: sclerae normal EOM: EOMs intact bilaterally Neck: Neck: Yes no lymphadenopathy, Yes trachea midline and Yes supple Resp: Effort & Inspection: normal respiratory effort and no respiratory distress Auscultation: crackles ([id number]) Cardio: Rate: regular rate Rhythm: regular rhythm Heart sounds: no gallops, no murmurs and no rubs GI: Palpation (GI): Soft to palpation and Other GI palpation findings present ( Nontender) Auscultation: normal bowel sounds Extrem: General: Yes no pedal edema, No clubbing and No cyanosis Objective Data Labs 06/13/24 05:02 06/13/24 05:02 Labs: Laboratory Results - last 24 hr 06/13/24 06/13/24 05:02 05:04 WBC 15.2 H RBC 3.35 L Hgb 9.9 L Hct 30.6 L MCV 91.3 MCH 29.6 MCHC 32.4 RDW 13.6 Plt Count 212 MPV 10.4 Immature Gran % (Auto) 0.7 H Neut % (Auto) 80.7 H Lymph % (Auto) 6.7 L [place] % (Auto) 10.4 Eos % (Auto) 1.4 Baso % (Auto) 0.1 Lymph # (Auto) 1.0 L [place] # (Auto) 1.6 H Eos # (Auto) 0.2 Baso # (Auto) 0.0 Abs Immat Gran (auto) 0.10 H Absolute Neuts (auto) 12.3 H Absolute Nucleated RBC 0.000 Nucleated RBC % (auto) 0.0 Smear Tech's Comments VERIFIED VBG pH 7.41 VBG pCO2 49 VBG pO2 48 VBG HCO3 32 H VBG O2 Saturation 79.0 VBG Base Excess 6.6 Sodium 143 Potassium 4.1 D Chloride 107 Carbon Dioxide 28 Anion Gap 12 BUN 9 Creatinine 0.63 Estim Creat Clear Calc 77.9 Estimated GFR > 60 Random Glucose 126 H Calcium 8.9 Phosphorus 2.2 L Magnesium 2.1 Albumin 3.4 L Microbiology Microbiology Results: Microbiology 06/02/24 09:42 Blood - Venous Blood Culture - Final No growth after 5 days. 06/02/24 09:42 Blood - Venous Blood Culture - Final No growth after 5 days. 06/02/24 11:44 Bronchial Alveo Lavage Gram Stain - Final 06/02/24 11:44 Bronchial Alveo Lavage - Final No growth after 2 days 05/25/24 23:41 Blood - Venous Blood Culture - Final No growth after 5 days. 05/25/24 23:31 Blood - Venous Blood Culture - Final No growth after 5 days. Progress Note: A&P Assessment and plan (1) Pulmonary abscess: Status: Acute (2) Acute hypoxemic respiratory failure: Status: Acute (3) Pulmonary aspiration: Status: Acute Plan Assessment: 73-year-old lady admitted with dyspnea and hypoxia likely secondary to recurrent pulmonary aspiration, now with another event of pulmonary aspiration, also in a background of minor hemoptysis, now requiring ventilatory support Plan: Neuro: No acute issues. Cardiac: No acute issues. Pulmonary: Acute hypoxic respiratory failure secondary to pulmonary aspiration requiring ventilatory support, extubated 06/12/2024. Continue to titrate off supplemental oxygen as tolerated. CT chest also demonstrating left-sided abscess. Continue empiric broad-spectrum antibiotics. Renal: No acute issues. Endo: No acute issues. GI: No acute issues. ID: Likely underlying pulmonary abscess on the background of chronic aspiration, continue broad-spectrum antibiotics. Heme/Onc: No acute issues. Psych: No acute issues. Miscellaneous: No acute issues. Prophylaxis: Pneumatic compression Diet: Pending swallow evaluation Quality Stroke Does the patient have a stroke diagnosis?: No VTE Prior VTE?: No VTE Risk Level:: Medical - moderate - high VTE Device Contraindication: N/A - Device Ordered VTE Drug Contraindication: Treatment Not Indicated
[2024-06-13] MEDS: Amiodarone HCL 200 MG TABLET 400 MG PO (10:52)
--- NOTE | 2024-06-13 11:37 | PC.RT ---
CPT done with patient up in chair leaning forward. Utilizing the mechanical percussor R & L each side x 5 min all lobes uriah well.
--- NOTE | 2024-06-13 11:59 | MHC.CLN ---
F/U PT EXTUBATED YESTERDAY DISCUSSED AT ROUNDS WITH PT PREVIOUSLY RECEIVED PROMOTE TF AT MAX GOAL RATE 60ML/HR PROVIDED 1440KCALS (24KCALS/KG), 90G PROTEIN (1.5G/KG), 1208ML TOTAL WATER FROM FORMULA CURRENT DIET NPO PENDING SUPERVISOR PICKING CREW EVAL IF DIET TO ADVANCE, RECOMMEND REGULAR IN ADDITION TO SUPERVISOR PICKING CREW REC FOLLOWING FOR DIET ADVANCEMENT
--- NOTE | 2024-06-13 12:22 | MHC.CM.PN ---
Pt was successfully extubated and is now on 6 liters O2. Pt is likely to be deconditioned and may need STR: PT will be ordered to better assess pt's functional abilities. Pt has been accepted to [facility] should she be able to safely return to home. CM to follow
--- NOTE | 2024-06-13 16:15 | MHC.SL.IMP ---
Date of Plan of Treatment: 06/13/24 Onset of Symptoms/Illness: 05/26/24 Date Treatment Started: 05/29/24 Admitting Diagnosis: (1) Pulmonary abscess: Status: Acute (2) Acute hypoxemic respiratory failure: Status: Acute (3) Pulmonary aspiration: Status: Acute Primary Speech & Language Diagnosis: R13.12 Oropharyngeal Phase Dysphagia Reason for Today's Visit: 45561 Modified Barium Swallow Study Pre-evaluation Dietary Consistencies: NPO Pre-evaluation Liquid Consistency: NPO Pre-evaluation Medication Administration: NPO Medical History: Modified Barium Swallow Study Fluoroscopic Evaluation of Swallowing Function CPT Code 18058 Evaluation Year: 2024 Reason for Study: Difficulty swallowing Referring Physician: Kolby Chand MD Evaluating Clinician: Edie Funes MA, [facility] Study Number: 1 Patient Name: Deanne Lindquist Status: Inpatient, Wheelchair Age: 73 Gender: Female Medical History Medical History (Updated 05/26/24 @ 02:56 by Lillian Shabazz MD) Pneumonia Hyperparathyroidism Fatty liver Osteopenia Acid reflux disease Basal cell carcinoma Asthma HLD (hyperlipidemia) HTN (hypertension) Surgical History H/O parathyroidectomy History of removal of both ovaries H/O section Hx of tonsillec Current (pre-evaluation) Intake/Diet: Route: NPO/Alternate Route Pre-Study Functional Oral Intake Scale (FOIS): 1- No oral intake Pain: None reported at time of study SUBJECTIVE: Patient was extubated yesterday at 15:40, now on nasal cannula. Patient was recommended by BUS ESCORT to have instrumental assessment d/t concern for silent aspiration. Exam was re-ordered per Dr. Chand this morning. BUS ESCORT consulted w/ RT, who reports patient is awake and alert, appropriate for exam. Food and Liquid Trials: Oral Impairment: Lip Closure: Did not test Oral Impairment: Tongue Control During Bolus Hold: 0=Cohesive bolus between tongue to palatal seal Oral Impairment: Bolus Preparation/Mastication: 1=Slow prolonged chewing/mashing with complete re-collection Oral Impairment: Bolus Transport/Lingual Motion: 1= Delayed initiation of tongue motion Oral Impairment: Oral Residue: 1=Trace residue lining oral structures Oral Impairment:Initiation of Pharyngeal Swallow: 1=Bolus head in valleculae Pharyngeal Impairment: Soft Palate Elevation: 0=No bolus between soft palate (SP)/pharyngeal wall (PW) Pharyngeal Impairment: Laryngeal Elevation: 1=Partial thyroid cartilage/arytenoids to epiglottic petiole movement Pharyngeal Impairment: Anterior Hyoid Excursion: 1=Partial anterior movement Pharyngeal Impairment: Epiglottic Movement: 1=Partial inversion Pharyngeal Impairment: Laryngeal Vestibular Closure:: 1=Incomplete: narrow column air/contrast in laryngeal vestibule Pharyngeal Impairment: Pharyngeal Stripping Wave: 1=Present: diminished Pharyngeal Impairment: Pharyngeal Contraction: Did not test Pharyngeal Impairment: Pharyngoesophageal Segment Openin=Partial distention/partial duration: partial obstruction of flow Pharyngeal Impairment: Tongue Base (TB) Retraction: 2=Narrow column of contrast/air between TB and posterior PW Pharyngeal Impairment: Pharyngeal Residue: 2=Collection of residue within or on pharyngeal structures Pharyngeal Impairment: Esophageal Clearance Upright Position: Did not test Impressions and Recommendations OBJECTIVE: Time-out: performed at 14:00 Evaluation Start: 13:50; Stop: 13:55 Patient Positioning: Seated 70-90 degrees Viewing Planes: LATERAL ONLY Contrast: MBSImP? Standardized Protocol using commercially prepared, standardized Barium viscosities, including: Varibar? THIN LIQUID (40% w/v, <15 cps) , Varibar? NECTAR (40% w/v, <150-450 cps) , Varibar? THIN HONEY (40% w/v, <800-1800 cps) , Varibar? PUDDING (40% w/v, <5172-9789 cps) , 1/2 Shortbread Cookie (1 x1 x.25 ) [facility] [id number] MBSImP Results: Lip closure for intraoral bolus containment could not be assessed due to logistical reasons not related to physiologic impairment. Tongue control during bolus hold maintained a cohesive bolus held between tongue to palate seal. Bolus preparation and mastication resulted in slow, prolonged chewing/mashing but with complete re-collection. Bolus transport/lingual motion demonstrated delayed initiation of tongue motion. Oral residue was a trace, lining oral structures. Initiation of the pharyngeal swallow occurred when the bolus head was in the valleculae. Soft palate elevation resulted in no bolus between the soft palate and the pharyngeal wall. Laryngeal elevation was decreased, with partial superior movement of the thyroid cartilage/partial approximation of the arytenoids to the epiglottic petiole. Anterior hyoid excursion demonstrated partial anterior movement. Epiglottic movement resulted in partial inversion. Laryngeal vestibular closure was incomplete, with a narrow column of air/contrast noted within the laryngeal vestibule at the height of the swallow. Pharyngeal stripping wave was present, but diminished. Pharyngeal contraction could not be determined due to logistical reasons not related to physiologic impairment. Pharyngoesophageal segment opening demonstrated partial distension/partial duration, with partial obstruction of bolus flow. Tongue base retraction allowed a narrow column of contrast or air between the retracted tongue base and the posterior pharyngeal wall. Pharyngeal residue was a collection of residue within or on pharyngeal structures. Esophageal clearance in the upright position could not be assessed due to logistical reasons not related to physiologic impairment. Oral Impairment Score: 3 (absence of score, component 1) Pharyngeal Impairment Score: 10 (absence of score, component 13) Esophageal Impairment Score: --- (absence of score, component 17) Laryngeal Penetration and Aspiration: Neither penetration nor aspiration was observed in today's study with Cookie, Ground Chicken, Pudding-thick, Honey-thick, [place]-thick. Penetration was observed in today's study. Thin Contrast entered the airway, remained above the vocal folds, and was ejected from the airway. Structural Abnormalities Noted: Cricopharygneal achalasia impeded bolus flow and contributed to pharyngeal residue. ASSESSMENT: Clinician Assessment: This exam was conducted by the radiologist and the speech pathologist. Patient was seated upright in a wheelchair for lateral view only. She fed herself without difficulty and trialed the following consistencies: -thin liquid via individual cup sips -nectar thick liquid via individual cup sips -honey thick liquid via individual cup sips -puree -ground -regular solid Patient demonstrated good tongue control, maintaining bolus between tongue to palatal seal with no premature posterior spillage. Mastication was slowed and prolonged. Mildly delayed bolus transport, with brisk lingual movement. Trace lingual residue cleared with subsequent swallows. Pharyngeal swallow trigger initiated as the bolus head reached the valleculae. No evidence of nasopharyngeal reflux. Incomplete laryngeal elevation with partial epiglottic inversion and incomplete laryngeal vestibular closure. Transient penetration seen with trial of thin liquid. A trace amount of contrast entered the airway above the vocal folds and spontaneously cleared with no subsequent aspiration. No evidence of aspiration or penetration with trials of nectar thick, honey thick, puree, ground, and regular textures. Minimal residue seen in the valleculae, which cleared with self-initiated dry swallow. Radiologist noted moderate cricopharyngeal achalasia. Partial distention and partial obstruction of flow through the pharyngoesophageal segment opening (PES), contributing to minimal collection of residue in the pyriforms. Liquid Intake Recommendation: Thin Liquid Intake Strategies: Small Sips, No Straws, Double Swallow Dietary Recommendations: Chopped/Advanced (NDD3) Medication Administration: Crushed with Puree Please contact the pharmacy regarding appropriate crushable or liquid drug formulations that are available whenever modified delivery is recommended. Compensatory Strategies Recommended: Sitting Upright (90 deg), Double Swallow, No Straw, Liquids from Cup, Liquids from Spoon, Small Bites and Sips, Alternate Liquids/Solids, Rate of Ingestion Change Supervision during eating and or drinking: Total Supervision (1:1) Recommended Treatments: Compens. Strategy Educat. Recommendation for Speech Therapy: Inpatient Speech Therapy Text Comment: Intake Recommendations: Route: PO Diet Grade: Chopped/Advanced (NDD3) Liquid Consistencies: Thin Post-Study Functional Oral Intake Scale (FOIS): 5- Total oral intake of multiple consistencies requiring special preparation Transient penetration on thin liquid, spontaneously cleared with no subsequent aspiration. No evidence of aspiration or penetration with trials of thickened liquids and solids. Minimal pharyngeal residue cleared with self-initiated dry swallows. Recommend START on CHOPPED/ADVANCED (NDD3) diet for ease of mastication and THIN liquids, pills CRUSHED in PUREE. Patient is able to feed herself and is recommended the following strategies to maximize safety: -take small bites of food -chew food well -dry swallow after each bite to promote pharyngeal clearance -liquids by teaspoon or cup sip -no straws -maintain upright 90 degree position during PO intake [facility] will continue to follow during inpatient stay to monitor tolerance and provide further education RE: MBSS findings and recommended feeding strategies. Patient may benefit from GI consult for moderate cricopharyngeal achalasia as noted by Radiologist. 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 The patient will tolerate the least restrictive diet with a safe/efficient swallow to maintain adequate nutrition and hydration. ? The patient and/or family will participate in further education for swallowing goals. Short Term Goals: ? Diet - The patient will tolerate a modified dysphagia diet with thin liquids without signs or symptoms of penetration/aspiration 100% of the time. - The patient will participate in therapeutic PO trials with the BUS ESCORT. ? Guidelines - The patient will comply with/recall the following guidelines/strategies 100% of the time with minimal cuing: Bolus Volume Change, Rate of Ingestion Change, Additional Swallow(s) per Bolus, Effortful Swallow (used during PO intake), No Straws. ? Education - The patient, family, caregiver, nurse will verbalize/demonstrate understanding of the results of this evaluation, the above recommendations, and the swallowing guidelines. Frequency/Duration: M-F Date Range for Service Requested: Timeline to reassess: PRN Clinician - Supplemental, Miscellaneous Communication: It is important to note MBSS objective studies are snapshots in time and Patient function might vary with factors such as time of day or concomitant medical conditions. For this reason, the final treatment plan for this patient should rest with their medical care team. Additional recommendations should be considered with the totality of the Patient in mind. Thank for the opportunity to participate in the care of this patient. If you have any questions about the content of this report, please contact the [facility]. Education: Education regarding findings from today's study and plans for therapy were provided to Patient only through Verbal Instruction. Understanding was expressed by the Patient only. Senior Integration Architect Clinician/Clinical Fellow: No Supervisory Statement: N/A Speech Language Pathologist: Edie Funes M.A., [facility]
[2024-06-14] VITALS (17 sets, daily range): BP systolic 105–144; BP diastolic 52–77; PULSE 67–135; RESP 16–24; TEMP 36.1–37.1; O2SAT 91–97
[2024-06-14] MEDS: Piperacillin Sodium/Tazobactam 4.5 GM in 0.9 % Sodium Chloride 100 ML IV ×4 (03:35→22:14)
[2024-06-14 04:52] LABS: VBG Base Excess 7.2 mmol/L; VBG HCO3 30 mmol/L (22-26); VBG pCO2 36 mmHg; VBG pH 7.53 (7.32-7.43); VBG pO2 40 mmHg
[2024-06-14 04:55] LABS: Venous Blood Gas Refer to POC result
[2024-06-14 05:08] LABS: MANUAL DIFF FLAG NO
[2024-06-14 05:09] LABS: Basophils Percent Auto 0.2 % (0-2); Eosinophils Absolute Auto 0.3 X10*3/uL (0.0-0.4); Eosinophils Percent Auto 2.4 % (0-4); Hematocrit 30.8 % (37.0-47.0); Imm Gran Abs Auto 0.06 X10*3/uL (0.00-0.03); Imm Gran Pct Auto 0.5 % (0.0-0.4); Lymphocytes Absolute Auto 1.4 X10*3/uL (1.2-4.9); Lymphocytes Percent Auto 12.8 % (20-40); Mean Corpuscular HGB Conc 32.5 g/dl (31.0-35.0); Mean Corpuscular Hemoglobin 29.5 pg (27.0-33.0); Mean Corpuscular Volume 90.9 fL (80.0-98.0); Mean Platelet Volume 9.8 fL (9.4-12.3); Monocytes Absolute Auto 1.1 X10*3/uL (0.1-1.2); Monocytes Percent Auto 10.3 % (2-11); Neutrophils Absolute Auto 8.2 x10*3/uL (2.0-8.3); Neutrophils Percent Auto 73.8 % (45-73); Platelet Count 209 X10*3/uL (160-400); Red Blood Count 3.39 X10*6/uL (4.20-5.50); Red Cell Distribution Width 13.6 % (11.0-16.0); White Blood Count 11.1 X10*3/uL (4.8-10.8)
[2024-06-14 05:23] LABS: Albumin Level 3.8 g/dL (3.5-5.0); Anion Gap 13 (12-20); Blood Urea Nitrogen 12 mg/dL (9-16); Calcium 9.1 mg/dL (8.4-10.2); Carbon Dioxide 26 mmol/L (22-29); Chloride 107 mmol/L (96-108); Creatinine Clr Calc Pharmacy 76.8; Estimated Glomerular Filt Rate > 60; Glucose Random 110 mg/dL (60-115); Magnesium 2.3 mg/dL (1.6-2.6); Potassium 3.7 mmol/L (3.3-5.1); Sodium 142 mmol/L (135-145)
[2024-06-14] MEDS: Potassium Phosphate/NS 15 MMOL/250 ML PLAST..BAG 62.5 MMOL IV ×2 (06:15→10:23)
--- NOTE | 2024-06-14 07:03 | PC.NURSE ---
Critical Care Nursing Note? Assumed care at 2300, patient alert and oriented. Patient with complaint of mild nausea related to earlier barium swallow evaluation. Patient with a productive cough, clears oral secretions independently with yankauer.
[2024-06-14] MEDS: Albuterol Sulfate (0.083%) 2.5 MG/3 ML VIAL.NEB INHALE (07:43)
[2024-06-14] MEDS: Acetylcysteine 10 % 400 MG/4 ML VIAL INHALE (07:43)
[2024-06-14] MEDS: Amiodarone HCL 200 MG TABLET 400 MG PO (09:03)
[2024-06-14] MEDS: ondansetron HCL 4 MG/2 ML VIAL IVPUSH ×3 (09:03→22:14)
[2024-06-14] MEDS: 0.9 % Sodium Chloride Flush 3 ML SYRINGE IVFLUSH ×2 (09:03→15:15)
--- NOTE | 2024-06-14 09:35 | PC.NURSE ---
Neuro: Alert & oriented Respiratory: On 4L gonzalez [place], Rhonchorous breath sounds bilaterally. Cardiac: Sinus Rhythm on tele GI: LBM? 06/08, +bowel sounds, Nauseous, Zofran given per MAR? Infectious: On IV antibiotics ? Lines: peripheral IVs? Plan: Transfer to [facility]. No longer requiring ICU-level care.
[2024-06-14] MEDS: CYCLOSPORINE 0.05% 1 EACH EYE-BOTH ×2 (09:59→22:19)
--- NOTE | 2024-06-14 11:19 | PM.CCPN ---
Subjective Subjective Date of Service: 06/14/24 Interval History: 73-year-old lady with underlying history of asthma, AFib on anticoagulation, hyperparathyroidism status post parathyroidectomy admitted on 05/26/2024 with dyspnea and hypoxia her initial CT chest demonstrated no evidence of pulmonary emboli but chronic bibasilar atelectasis. Hospital course significant for recurrent hypoxic events that appears to be related to recurrent pulmonary aspiration requiring intubation on 06/02 2024, extubated 06/03/2024. While intubating bronchoscopic clearance demonstrated large burden of thick secretions with cultures negative to date. On 06/09/2024 patient has an asthma episode of respiratory distress with refractory hypoxia likely secondary to aspiration requiring transfer to intensive care unit and intubation. Extubated 06/12/2024. No events overnight. Critical Care Time (minutes): 0 Physical Exam Vital Signs: Vital Signs: Last Vital Signs Temp 97.0 F 06/14/24 08:00 Pulse 96 06/14/24 08:00 Resp 16 06/14/24 08:00 BP 116/77 06/14/24 08:00 Pulse Ox 93 06/14/24 08:00 O2 Del Method Nasal Cannula 06/14/24 08:00 O2 Flow Rate 4 06/14/24 08:00 FiO2 50 06/12/24 16:52 Oxygen Flow Rate 2 05/25/24 23:08 BMI result Body Mass Index 37.3 Const: General: no acute distress, alert and awake Eyes: Sclerae: sclerae normal EOM: EOMs intact bilaterally Neck: Neck: Yes no lymphadenopathy, Yes trachea midline and Yes supple Resp: Effort & Inspection: normal respiratory effort and no respiratory distress Auscultation: clear to auscultation bilaterally Cardio: Rate: regular rate Rhythm: regular rhythm Heart sounds: no gallops, no murmurs and no rubs GI: Palpation (GI): Soft to palpation and Other GI palpation findings present ( Nontender) Auscultation: normal bowel sounds Extrem: General: Yes no pedal edema, No clubbing and No cyanosis Objective Data Labs 06/14/24 04:44 06/14/24 04:44 Labs: Laboratory Results - last 24 hr 06/14/24 06/14/24 04:44 04:47 WBC 11.1 H RBC 3.39 L Hgb 10.0 L Hct 30.8 L MCV 90.9 MCH 29.5 MCHC 32.5 RDW 13.6 Plt Count 209 MPV 9.8 Immature Gran % (Auto) 0.5 H Neut % (Auto) 73.8 H Lymph % (Auto) 12.8 L [place] % (Auto) 10.3 Eos % (Auto) 2.4 Baso % (Auto) 0.2 Lymph # (Auto) 1.4 [place] # (Auto) 1.1 Eos # (Auto) 0.3 Baso # (Auto) 0.0 Abs Immat Gran (auto) 0.06 H Absolute Neuts (auto) 8.2 Absolute Nucleated RBC 0.000 Nucleated RBC % (auto) 0.0 VBG pH 7.53 H VBG pCO2 36 VBG pO2 40 VBG HCO3 30 H VBG O2 Saturation 73.0 VBG Base Excess 7.2 Sodium 142 Potassium 3.7 Chloride 107 Carbon Dioxide 26 Anion Gap 13 BUN 12 Creatinine 0.68 Estim Creat Clear Calc 76.8 Estimated GFR > 60 Random Glucose 110 Calcium 9.1 Phosphorus 2.0 L Magnesium 2.3 Albumin 3.8 Microbiology Microbiology Results: Microbiology 06/02/24 09:42 Blood - Venous Blood Culture - Final No growth after 5 days. 06/02/24 09:42 Blood - Venous Blood Culture - Final No growth after 5 days. 06/02/24 11:44 Bronchial Alveo Lavage Gram Stain - Final 06/02/24 11:44 Bronchial Alveo Lavage - Final No growth after 2 days 05/25/24 23:41 Blood - Venous Blood Culture - Final No growth after 5 days. 05/25/24 23:31 Blood - Venous Blood Culture - Final No growth after 5 days. Progress Note: A&P Assessment and plan (1) Pulmonary aspiration: Status: Acute (2) Acute hypoxemic respiratory failure: Status: Acute (3) Pulmonary abscess: Status: Acute Plan Assessment: 73-year-old lady admitted with dyspnea and hypoxia likely secondary to recurrent pulmonary aspiration, now with another event of pulmonary aspiration, also in a background of minor hemoptysis, now requiring ventilatory support Plan: Neuro: No acute issues. Cardiac: No acute issues. Pulmonary: Acute hypoxic respiratory failure secondary to pulmonary aspiration requiring ventilatory support, extubated 06/12/2024. Continue to titrate off supplemental oxygen as tolerated. Left-sided pulmonary abscess. Continue empiric broad-spectrum antibiotics. Renal: No acute issues. Endo: No acute issues. GI: No acute issues. ID: Likely underlying pulmonary abscess on the background of chronic aspiration, continue Zosyn. Heme/Onc: No acute issues. Psych: No acute issues. Miscellaneous: No acute issues. Prophylaxis: Pneumatic compression Diet: Chopped, thin liquids Quality Stroke Does the patient have a stroke diagnosis?: No VTE Prior VTE?: No VTE Risk Level:: Medical - moderate - high VTE Device Contraindication: N/A - Device Ordered VTE Drug Contraindication: Treatment Not Indicated
--- NOTE | 2024-06-14 17:27 | PM.EVENT ---
Event Note Date of Service: 06/14/24 Event Note: 73-year-old lady with underlying history of asthma, AFib on anticoagulation, hyperparathyroidism status post parathyroidectomy admitted on 05/26/2024 with dyspnea and hypoxia her initial CT chest demonstrated no evidence of pulmonary emboli but chronic bibasilar atelectasis. Hospital course significant for recurrent hypoxic events that appears to be related to recurrent pulmonary aspiration requiring intubation on 06/02 2024, extubated 06/03/2024. While intubating bronchoscopic clearance demonstrated large burden of thick secretions with cultures negative to date. On 06/09/2024 patient has an episode of respiratory distress with refractory hypoxia likely secondary to aspiration requiring transfer to intensive care unit and intubation. Extubated 06/12/2024. Downgraded to the medical floor again on June 14 Acute hypoxic respiratory failure Secondary to pulmonary aspiration and left-sided pulmonary abscess Status post intubation x2 Off high-flow oxygen, currently on 4 L supplemental oxygen Continue antibiotics, changed to Augmentin on discharge for 3-4 weeks MBSS 06/13 - rec NDD3 diet with thin liquids Time Spent With Patient Time: Total time managing care of this patient today ____ minutes.
--- NOTE | 2024-06-14 21:19 | PM.GICN ---
History of Present Illness Data of Consult Service Date: 06/14/24 Primary Care Provider: GAURI Leonard HPI Reason for consult: abn imaging 73-year-old lady with underlying history of asthma, AFib on anticoagulation, hyperparathyroidism status post parathyroidectomy admitted on 05/26/2024 with dyspnea and hypoxia who I am asked to see for assessment for abn imaging Patient was admitted with hypoxia, had multifocal pneumonia with concern for aspiration. Also had brief ICU stay. Now still on oxygen but slowly improving. She had MBS with cricopharyngeal achalasia and speech assessment. Found suitable for PO diet with various techniques per report. Patient her self denies choking, food sticking in chest or throat or nasal regurgitation. prior to this illness she was mobile and self caring. She does admit to issues with reflux and only takes omeprazole 10 mg sometimes. no melena, abdominal pain, abn bowels Review of Systems Review of Systems: Constitutional : No Weight loss, No Fever, No Chills ENT/Mouth : No sore throat, No Rhinorrhea Eyes: No Swelling, No Redness Cardiovascular : No Chest Pain, + SOB, No Edema Respiratory : No Cough, No Sputum, No Wheezing Gastrointestinal : see HPI Genitourinary : NO Dysuria, No Urinary Frequency, No Hematuria, No Urgency Musculoskeletal : + joint pain, No Myalgias, No Joint Swelling Skin : No Skin Lesions, No rash Neuro : No Weakness, No Numbness, No Dizziness, No Headache Psych : No Anxiety/Panic, No Depression Heme/Lymph: No Bruising, No Lymphadenopathy Endocrine : No Polyuria, No Polydipsia All other systems reviewed and are negative. [facility] Past Medical History Medical History (Updated 06/10/24 @ 10:17 by Kolby Chand MD) Pneumonia Hyperparathyroidism Fatty liver Osteopenia Acid reflux disease Basal cell carcinoma Asthma HLD (hyperlipidemia) HTN (hypertension) Family History Pertinent family history: no fh of swallowing problems Surgical History Surgical History H/O parathyroidectomy History of removal of both ovaries H/O section Hx of tonsillectomy H/O colonoscopy Social History Social History Household Members: Significant Other Housing: Condominium Do you presently have visiting nurse or other home services: No Alcohol intake: never Patient Tobacco Use Status: Never used Tobacco Second Hand Smoke Exposure: No Advance Directives Date on File: 01/10/24 service: No Meds Allergies Allergy/AdvReac Type Severity Reaction Status Date / Time lisinopril Allergy Severe Difficulty Verified 05/25/24 23:09 Breathing codeine Allergy Intermediate Unconscious Verified 05/25/24 23:09 Active Medications: Current Medications Acetaminophen (Acetaminophen 325 Mg Tablet) 650 mg PO Q6H PRN PRN Reason: Pain, Mild 1-3,fever,headache Last Admin: 06/10/24 21:09 Dose: 650 mg Acetylcysteine (Acetylcysteine 10 % 400 Mg/4 Ml Vial) 400 mg INHALE RBID [facility] Last Admin: 06/14/24 19:19 Dose: Not Given Albuterol Sulfate (Albuterol Sulfate (0.083%) 2.5 Mg/3 Ml Vial.Neb) 2.5 mg INHALE RBID [facility] Last Admin: 06/14/24 19:19 Dose: Not Given Amiodarone HCl (Amiodarone Hcl 200 Mg Tablet) 400 mg PO DAILY [facility] Last Admin: 06/14/24 09:03 Dose: 400 mg Calcium Carbonate (Calcium Carbonate 750 Mg Tab.Chew) 750 mg PO Q6H PRN PRN Reason: Heartburn Last Admin: 06/08/24 20:39 Dose: 750 mg Piperacillin Sod/Tazobactam (Sod 4.5 gm/ Sodium Chloride) 100 mls @ 200 mls/hr IV Q6H [facility] Last Infusion: 06/14/24 16:45 Dose: Infused Pt Owned Med ( Cyclosporine 0.05% Eye Emulsion) 1 each EYE-BOTH BID [facility] Last Admin: 06/14/24 09:59 Dose: 1 each Ondansetron HCl (Ondansetron Hcl 4 Mg/2 Ml Vial) 4 mg IVPUSH Q6H PRN PRN Reason: Nausea and Vomiting Last Admin: 06/14/24 15:15 Dose: 4 mg Sodium Chloride (0.9 % Sodium Chloride Flush 3 Ml Syringe) 3 ml IVFLUSH QSHIFT [facility] Last Admin: 06/14/24 15:15 Dose: 3 ml Home Medications ?Medication ?Instructions ?Recorded ?Confirmed ?Last Taken ?Type amlodipine 10 mg tablet 10 mg PO BEDTIME 10/12/22 05/26/2425 History montelukast 10 mg tablet 10 mg PO BEDTIME 10/12/22 05/26/24 05/25/24 History omega 0-cwt-atg-fish oil 1,000 mg 1 cap PO DAILY 10/12/22 05/26/24 05/25/24 History (120 mg-180 mg) capsule (Fish Oil) omeprazole 20 mg capsule,delayed 20 mg PO DAILY@0630 10/12/22 05/26/24 05/25/24 History release albuterol sulfate 90 mcg/actuation 2 puff inhalation Q4H PRN Wheezing 10/01/23 05/26/24 01/16/24 History aerosol inhaler budesonide-formoterol HFA 160 2 puff inhalation BID 10/01/23 05/26/24 05/25/24 History mcg-4.5 mcg/actuation aerosol inhaler (Symbicort) cholecalciferol (vitamin D3) 125 125 mcg PO DAILY 10/01/23 05/26/24 05/25/24 History mcg (5,000 unit) tablet (Vitamin D3) cetirizine 10 mg tablet (Zyrtec) 10 mg PO DAILY 01/10/24 05/26/24 05/25/24 History cyclosporine 0.05 % eye drops in a 1 drp ophthalmic (eye) Q12H PRN 01/10/24 05/26/24 05/25/24 History dropperette Dry Eye(S) amoxicillin 875 mg-potassium 1 tab PO BID 05/26/24 05/26/24 05/25/24 History clavulanate 125 mg tablet azithromycin 250 mg tablet 250 mg PO DAILY 05/26/24 05/26/24 05/25/24 History coenzyme Q10 100 mg capsule 100 mg PO DAILY 05/26/24 05/26/24 05/25/24 History (CoQ-10) metoprolol succinate 25 mg 25 mg PO DAILY 05/26/24 05/26/24 05/25/24 History tablet,extended release 24 hr prednisone 10 mg tablet 40 mg PO DAILY 05/26/24 05/26/24 05/25/24 History turmeric 400 mg capsule 400 mg PO DAILY 05/26/24 05/26/24 05/25/24 History Physical Exam Vital Signs: Vital Signs: Last Vital Signs Temp 98.6 F 06/14/24 19:35 Pulse 72 06/14/24 19:35 Resp 20 06/14/24 19:35 BP 132/63 06/14/24 19:35 Pulse Ox 95 06/14/24 19:35 O2 Del Method Nasal Cannula 06/14/24 19:35 O2 Flow Rate 3 06/14/24 19:35 FiO2 50 06/12/24 16:52 Oxygen Flow Rate 2 05/25/24 23:08 BMI result Body Mass Index 37.3 EXAM: GENERAL: The patient is well developed and nontoxic. on o2 VITAL SIGNS:see workflow HEENT: Nonicteric sclerae, PERRLA, EOMI. Oropharynx clear. Moist mucous membranes. Conjunctivae appear well perfused. No thyroid mass. CHEST: Chest wall is nontender. HEART: Regular rate and rhythm without murmurs. LUNGS: b/ wheeze ABDOMEN: Soft, positive bowel sounds, nontender, no organomegaly.no flank tenderness SKIN: No rash, no excessive bruising, petechiae, or purpura. NEUROLOGIC: Cranial nerves II-XII intact without motor/sensory deficit. Psych: normal affect Results Labs 06/14/24 04:44 06/14/24 04:44 Labs: Short CBC 06/14/24 Range/Units 04:44 WBC 11.1 H (4.8-10.8) X10*3/uL Hgb 10.0 L (12.0-16.0) g/dl Hct 30.8 L (37.0-47.0) % Plt Count 209 (160-400) X10*3/uL BMP 06/14/24 04:44 Sodium 142 Potassium 3.7 Chloride 107 Carbon Dioxide 26 BUN 12 Creatinine 0.68 Calcium 9.1 Liver Function 06/14/24 Range/Units 04:44 Albumin 3.8 (3.5-5.0) g/dL Microbiology Microbiology Results: Microbiology 06/02/24 09:42 Blood - Venous Blood Culture - Final No growth after 5 days. 06/02/24 09:42 Blood - Venous Blood Culture - Final No growth after 5 days. 06/02/24 11:44 Bronchial Alveo Lavage Gram Stain - Final 06/02/24 11:44 Bronchial Alveo Lavage - Final No growth after 2 days 05/25/24 23:41 Blood - Venous Blood Culture - Final No growth after 5 days. 05/25/24 23:31 Blood - Venous Blood Culture - Final No growth after 5 days. Assessment and Plan (1) Pneumonia: Qualifiers: Pneumonia type: due to unspecified organism Laterality: bilateral Lung location: lower lobe of lung Qualified Code(s): J18.9 - Pneumonia, unspecified organism Status: Acute Plan 1/ pneumonia with concern for aspiriation, but not really seen on MBS, also denies any sx preceding this illness of dysphagia, but does admit to reflux, poorly controlled. She has cricopharyngeal achalsia whcih can ofteen be asymptomatic and also 2/2 chronic reflux PLAN: 1/ recommend high dose PPI for 3 months, and then can titrate down 2/ EGD at some point when her breathing issues settle, still needing o2 and has b/l wheeze 3/ f/u SALT recs for PO intake and diet 4/ check b12, iron and folate given anemia, prob 2.2 prolonged inpatient stay and illness, check immunoglobulins Procedures Date of Service Date of Service: 06/14/24
[2024-06-15] VITALS (8 sets, daily range): BP systolic 129–147; BP diastolic 64–69; PULSE 68–92; RESP 16–18; TEMP 36.1–36.9; O2SAT 93–96
[2024-06-15] MEDS: 0.9 % Sodium Chloride Flush 3 ML SYRINGE IVFLUSH ×4 (00:30→20:59)
[2024-06-15] MEDS: Piperacillin Sodium/Tazobactam 4.5 GM in 0.9 % Sodium Chloride 100 ML IV ×4 (03:43→20:59)
[2024-06-15] MEDS: ondansetron HCL 4 MG/2 ML VIAL IVPUSH (06:25)
[2024-06-15] MEDS: Albuterol Sulfate (0.083%) 2.5 MG/3 ML VIAL.NEB INHALE ×2 (07:59→19:44)
[2024-06-15] MEDS: Acetylcysteine 10 % 400 MG/4 ML VIAL INHALE (07:59)
[2024-06-15] MEDS: CYCLOSPORINE 0.05% 1 EACH EYE-BOTH ×2 (08:24→20:59)
[2024-06-15] MEDS: Amiodarone HCL 200 MG TABLET 400 MG PO (08:24)
--- NOTE | 2024-06-15 14:04 | HO.PM.IMPN ---
Subjective Subjective Date of Service: 06/15/24 Interval History: Seen and examined this morning Follow-up for respiratory failure, pulmonary abscess, pulmonary aspiration Downgraded from the ICU yesterday Feeling nauseated, +cough no sob Review of Systems Review of Systems: Yes all other systems are reviewed and are negative Constitutional Constitutional: Denies chills and Denies fever(s) Respiratory Respiratory: Reports cough Gastrointestinal Gastrointestinal: Denies abdominal pain and Reports nausea Physical Exam Vital Signs: Vital Signs: Last Vital Signs Temp 98.5 F 06/15/24 11:53 Pulse 81 06/15/24 11:53 Resp 16 06/15/24 11:53 BP 139/69 06/15/24 11:53 Pulse Ox 94 06/15/24 11:53 O2 Del Method Nasal Cannula 06/15/24 11:53 O2 Flow Rate 2 06/15/24 11:53 FiO2 50 06/12/24 16:52 Oxygen Flow Rate 2 05/25/24 23:08 BMI result Body Mass Index 37.3 Const: General: comfortable, no acute distress, alert and awake Nutritional Appearance: overweight Orientation/consciousness: patient oriented x3 Resp: Other: course breath sounds b/l Effort & Inspection: normal respiratory effort, no respiratory distress and no use of accessory muscles Cardio: Rate: regular rate GI: Inspection: No distended Palpation (GI): Soft to palpation and nontender Neuro: General: patient oriented x3, moves all extremities and CN's II-XI intact bilaterally Objective Data Active Medications Acetaminophen (Acetaminophen 325 Mg Tablet) 650 mg PO Q6H PRN PRN Reason: Pain, Mild 1-3,fever,headache Last Admin: 06/10/24 21:09 Dose: 650 mg Documented By: SANDRITA Acetylcysteine (Acetylcysteine 10 % 400 Mg/4 Ml Vial) 400 mg INHALE RBID [facility] Last Admin: 06/15/24 07:59 Dose: 400 mg Documented By: ANILA Albuterol Sulfate (Albuterol Sulfate (0.083%) 2.5 Mg/3 Ml Vial.Neb) 2.5 mg INHALE RBID [facility] Last Admin: 06/15/24 07:59 Dose: 2.5 mg Documented By: ANILA Amiodarone HCl (Amiodarone Hcl 200 Mg Tablet) 400 mg PO DAILY [facility] Last Admin: 06/15/24 08:24 Dose: 400 mg Documented By: LOWELL Calcium Carbonate (Calcium Carbonate 750 Mg Tab.Chew) 750 mg PO Q6H PRN PRN Reason: Heartburn Last Admin: 06/08/24 20:39 Dose: 750 mg Documented By: KRISTEN Guaifenesin/Dextromethorphan (Guaifenesin Dm 100/10/5 Ml 5 Ml Syrup) 5 ml PO Q6H PRN PRN Reason: Cough Piperacillin Sod/Tazobactam (Sod 4.5 gm/ Sodium Chloride) 100 mls @ 200 mls/hr IV Q6H [facility] Last Infusion: 06/15/24 08:55 Dose: Infused Documented By: LOWELL Pt Owned Med ( Cyclosporine 0.05% Eye Emulsion) 1 each EYE-BOTH BID [facility] Last Admin: 06/15/24 08:24 Dose: 1 each Documented By: LOWELL Omeprazole (Omeprazole 40 Mg Capsule.Dr) 40 mg PO BID@0630,1630 [facility] Ondansetron HCl (Ondansetron Hcl 4 Mg/2 Ml Vial) 4 mg IVPUSH Q6H PRN PRN Reason: Nausea and Vomiting Last Admin: 06/15/24 06:25 Dose: 4 mg Documented By: NAUMOC Sodium Chloride (0.9 % Sodium Chloride Flush 3 Ml Syringe) 3 ml IVFLUSH QSHIFT [facility] Last Admin: 06/15/24 08:25 Dose: 3 ml Documented By: LOWELL Labs 06/14/24 04:44 06/14/24 04:44 Assessment and Plan (1) Pulmonary abscess: Status: Acute (2) Pulmonary aspiration: Status: Acute (3) Acute hypoxemic respiratory failure: Status: Acute Plan 73-year-old lady with underlying history of asthma, AFib on anticoagulation, hyperparathyroidism status post parathyroidectomy admitted on 05/26/2024 with dyspnea and hypoxia her initial CT chest demonstrated no evidence of pulmonary emboli but chronic bibasilar atelectasis. Hospital course significant for recurrent hypoxic events that appears to be related to recurrent pulmonary aspiration requiring intubation on 06/02 2024, extubated 06/03/2024. While intubating bronchoscopic clearance demonstrated large burden of thick secretions with cultures negative to date. On 06/09/2024 patient has an episode of respiratory distress with refractory hypoxia likely secondary to aspiration requiring transfer to intensive care unit and intubation. Extubated 06/12/2024. Downgraded to the medical floor again on June 14 Acute hypoxic respiratory failure Secondary to pulmonary aspiration and left-sided pulmonary abscess Status post intubation x2 Off high-flow oxygen, currently on 2 L supplemental oxygen Continue IV zosyn, change to Augmentin on discharge for 3-4 weeks MBSS 06/13 showing moderate cricopharyngeal achalasia-seen by GI - rec high dose PPI x 3 months; will need egd when respiratory status stasble speech rec NDD3 diet with thin liquids. continue mucomyst, CPT all cultures negative to date continue speech therapy hemoptysis. resolved due to extensice bronch with some friable mucosa Eliquis was d/c H/H has remained stable Paroxysmal Atrial fibrillation with RVR: Anticoagulation stopped due to hemoptysis continue amiodarone Hypertension all med stopped in ICU follow BP Moderate persistent asthma Status post steroids DVT prophylaxis-mechanical will need repeat PT evaluation for dispo planning Quality Stroke Does the patient have a stroke diagnosis?: No VTE Prior VTE?: No VTE Risk Level:: Medical - moderate - high VTE Device Contraindication: N/A - Device Ordered VTE Drug Contraindication: Treatment Not Indicated
[2024-06-15] MEDS: Omeprazole 40 MG CAPSULE.DR PO (16:04)
[2024-06-15] MEDS: guaiFENesin DM 100/10/5 ML 5 ML SYRUP PO (16:10)
[2024-06-16] VITALS (9 sets, daily range): BP systolic 122–141; BP diastolic 60–67; PULSE 76–85; RESP 15–18; TEMP 36.2–36.9; O2SAT 94–98; BMI 33.0
[2024-06-16] MEDS: guaiFENesin DM 100/10/5 ML 5 ML SYRUP PO (00:07)
[2024-06-16] MEDS: Piperacillin Sodium/Tazobactam 4.5 GM in 0.9 % Sodium Chloride 100 ML IV ×4 (03:29→21:22)
[2024-06-16] MEDS: ondansetron HCL 4 MG/2 ML VIAL IVPUSH (03:32)
[2024-06-16] MEDS: Omeprazole 40 MG CAPSULE.DR PO ×2 (05:10→16:30)
[2024-06-16] MEDS: Albuterol Sulfate (0.083%) 2.5 MG/3 ML VIAL.NEB INHALE ×2 (07:53→19:06)
[2024-06-16] MEDS: Amiodarone HCL 200 MG TABLET 400 MG PO (07:55)
[2024-06-16] MEDS: CYCLOSPORINE 0.05% 1 EACH EYE-BOTH ×2 (07:55→21:23)
[2024-06-16] MEDS: 0.9 % Sodium Chloride Flush 3 ML SYRINGE IVFLUSH ×3 (07:56→21:27)
--- NOTE | 2024-06-16 09:50 | P.PNIM_ITS ---
Subjective Subjective Date of Service: 06/16/24 Interval History: Seen and examined this morning Follow-up for respiratory failure, pulmonary abscess, pulmonary aspiration Downgraded from the ICU 4/5 back is itchy Review of Systems Review of Systems: Yes all other systems are reviewed and are negative Constitutional Constitutional: Denies chills and Denies fever(s) Respiratory Respiratory: Reports cough Gastrointestinal Gastrointestinal: Denies abdominal pain and Reports nausea Physical Exam 2 Vital Signs: Vital Signs: Last Vital Signs Temp 97.1 F 06/16/24 07:17 Pulse 85 06/16/24 07:55 Resp 18 06/16/24 07:55 BP 141/67 H 06/16/24 07:17 Pulse Ox 98 06/16/24 07:17 O2 Del Method Nasal Cannula 06/16/24 07:17 O2 Flow Rate 2 06/16/24 07:17 FiO2 50 06/12/24 16:52 Oxygen Flow Rate 2 05/25/24 23:08 BMI result Body Mass Index 33.0 Appearing in no acute distress lung sounds are clear to auscultation heart regular rate rhythm, clear S1, S2 positive bowel sounds, abdomen is soft, nontender neuro patient is alert x3, no focal deficits Objective Data Active Medications Acetaminophen (Acetaminophen 325 Mg Tablet) 650 mg PO Q6H PRN PRN Reason: Pain, Mild 1-3,fever,headache Last Admin: 06/10/24 21:09 Dose: 650 mg Documented By: SANDRITA Acetylcysteine (Acetylcysteine 10 % 400 Mg/4 Ml Vial) 400 mg INHALE RBID [facility] Last Admin: 06/16/24 07:53 Dose: Not Given Documented By: ANILA Non-Admin Reason: Patient Refused Albuterol Sulfate (Albuterol Sulfate (0.083%) 2.5 Mg/3 Ml Vial.Neb) 2.5 mg INHALE RBID [facility] Last Admin: 06/16/24 07:53 Dose: 2.5 mg Documented By: ANILA Amiodarone HCl (Amiodarone Hcl 200 Mg Tablet) 400 mg PO DAILY [facility] Last Admin: 06/16/24 07:55 Dose: 400 mg Documented By: LOWELL Calcium Carbonate (Calcium Carbonate 750 Mg Tab.Chew) 750 mg PO Q6H PRN PRN Reason: Heartburn Last Admin: 06/08/24 20:39 Dose: 750 mg Documented By: KRISTEN Guaifenesin/Dextromethorphan (Guaifenesin Dm 100/10/5 Ml 5 Ml Syrup) 5 ml PO Q6H PRN PRN Reason: Cough Last Admin: 06/16/24 00:07 Dose: 5 ml Documented By: FLAVIO Comments: for cough Hydrocortisone (Hydrocortisone 1 % Cream 28.35 Gm Tube) 1 appl TOPICAL BID [facility]; Protocol Piperacillin Sod/Tazobactam (Sod 4.5 gm/ Sodium Chloride) 100 mls @ 200 mls/hr IV Q6H [facility] Last Infusion: 06/16/24 04:08 Dose: Infused Documented By: FLAVIO Pt Owned Med ( Cyclosporine 0.05% Eye Emulsion) 1 each EYE-BOTH BID [facility] Last Admin: 06/16/24 07:55 Dose: 1 each Documented By: LOWELL Omeprazole (Omeprazole 40 Mg Capsule.Dr) 40 mg PO BID@0630,1630 [facility] Last Admin: 06/16/24 05:10 Dose: 40 mg Documented By: FLAVIO Ondansetron HCl (Ondansetron Hcl 4 Mg/2 Ml Vial) 4 mg IVPUSH Q6H PRN PRN Reason: Nausea and Vomiting Last Admin: 06/16/24 03:32 Dose: 4 mg Documented By: FLAVIO Comments: C/O NAUSEA Sodium Chloride (0.9 % Sodium Chloride Flush 3 Ml Syringe) 3 ml IVFLUSH QSHIFT [facility] Last Admin: 06/16/24 07:56 Dose: 3 ml Documented By: LOWELL Labs 06/14/24 04:44 06/14/24 04:44 Assessment and Plan (1) Pulmonary abscess: Status: Acute (2) Pulmonary aspiration: Status: Acute (3) Acute hypoxemic respiratory failure: Status: Acute Plan 73-year-old lady with underlying history of asthma, AFib on anticoagulation, hyperparathyroidism status post parathyroidectomy admitted on 05/26/2024 with dyspnea and hypoxia her initial CT chest demonstrated no evidence of pulmonary emboli but chronic bibasilar atelectasis. Hospital course significant for recurrent hypoxic events that appears to be related to recurrent pulmonary aspiration requiring intubation on 06/02/2024, extubated 06/03/2024. While intubating bronchoscopic clearance demonstrated large burden of thick secretions with cultures negative to date. On 06/09/2024 patient has an episode of respiratory distress with refractory hypoxia likely secondary to aspiration requiring transfer to intensive care unit and intubation. Extubated 06/12/2024. Downgraded to the medical floor again on June 14 Acute hypoxic respiratory failure Secondary to pulmonary aspiration and left-sided pulmonary abscess Status post intubation x2 Off high-flow oxygen, currently on 2 L supplemental oxygen Continue IV zosyn, change to Augmentin on discharge for 3-4 weeks MBSS 06/13 showing moderate cricopharyngeal achalasia-seen by GI - rec high dose PPI x 3 months; will need egd when respiratory status stasble speech rec NDD3 diet with thin liquids. continue mucomyst, CPT all cultures negative to date continue speech therapy Hemoptysis. resolved due to extensive bronch with some friable mucosa Eliquis was d/c H/H has remained stable Paroxysmal Atrial fibrillation with RVR Anticoagulation stopped due to hemoptysis continue amiodarone Hypertension all med stopped in ICU follow BP Moderate persistent asthma Status post steroids DVT prophylaxis-mechanical Quality Stroke Does the patient have a stroke diagnosis?: No VTE Prior VTE?: No VTE Risk Level:: Medical - moderate - high VTE Device Contraindication: N/A - Device Ordered VTE Drug Contraindication: Treatment Not Indicated
[2024-06-16] MEDS: Hydrocortisone 1 % Cream 28.35 GM TUBE 1 APPL TOPICAL ×2 (10:29→21:22)
--- NOTE | 2024-06-16 11:49 | MHC.SL.SWA ---
Speech Pathologist Impression: Risk of Aspiration, Oropharyngeal Dysphagia Risk of Aspiration Due to: Hx of Recent Extubation Dysphasia Diet Status: No Change Liquid Consistency and Strategies for Safe Swallow: Liquid Intake Recommendation: Thin Liquid Intake Strategies: Small Sips No Straws Double Swallow Solid Food Consistency: Dietary Recommendations: Chopped/Advanced (NDD3) Oral Medication Intake: Crushed with Puree Please contact the pharmacy regarding appropriate crushable or liquid drug formulations that are available whenever modified delivery is recommended. Compensatory Strategies and Precautions to be Taken for Safe Swallow: Sitting Upright (90 deg) Double Swallow No Straw Liquids from Cup Liquids from Spoon Small Bites and Sips Alternate Liquids/Solids Rate of Ingestion Change Supervision While Eating and Drinking for Safe Swallow: Total Supervision (1:1) Swallowing Recommended Treatments: Compens. Strategy Educat. Recommendation for Speech: Inpatient Speech Therapy Comment: Intake Recommendations: Route: PO Diet Grade: Chopped/Advanced (NDD3) Liquid Consistencies: Thin Post-Study Functional Oral Intake Scale (FOIS): 5- Total oral intake of multiple consistencies requiring special preparation Transient penetration on thin liquid, spontaneously cleared with no subsequent aspiration. No evidence of aspiration or penetration with trials of thickened liquids and solids. Minimal pharyngeal residue cleared with self-initiated dry swallows. Recommend START on CHOPPED/ADVANCED (NDD3) diet for ease of mastication and THIN liquids, pills CRUSHED in PUREE. Patient is able to feed herself and is recommended the following strategies to maximize safety: -take small bites of food -chew food well -dry swallow after each bite to promote pharyngeal clearance -liquids by teaspoon or cup sip -no straws -maintain upright 90 degree position during PO intake CNA PCT will continue to follow during inpatient stay to monitor tolerance and provide further education RE: MBSS findings and recommended feeding strategies. Patient may benefit from GI consult for moderate cricopharyngeal achalasia as noted by Radiologist. Suggested Referrals: The patient might benefit from a referral to: Gastroenterology Indication for Referral: Moderate cricopharygneal achalasia noted by Radiologist Therapy Recommendations: Therapy will be continued The following compensatory strategies and/or therapeutic exercises will be part of the upcoming therapy/management plan: Additional Swallow(s) per Bolus Locator Goals: ? The patient will tolerate the least restrictive diet with a safe/efficient swallow to maintain adequate nutrition and hydration. ? The patient and/or family will participate in further education for swallowing goals. Short Term Goals: ? Diet - The patient will tolerate a modified dysphagia diet with thin liquids without signs or symptoms of penetration/aspiration 100% of the time. - The patient will participate in therapeutic PO trials with the CNA PCT. ? Guidelines - The patient will comply with/recall the following guidelines/strategies 100% of the time with minimal cuing: Bolus Volume Change, Rate of Ingestion Change, Additional Swallow(s) per Bolus, Effortful Swallow (used during PO intake), No Straws. ? Education - The patient, family, caregiver, nurse will verbalize/demonstrate understanding of the results of this evaluation, the above recommendations, and the swallowing guidelines. Frequency/Duration: M-F Date Range for Service Req: Timeline to reassess: PRN Disability Insurance Claim Examiner Clinican/Clinical Fellow: No Supervisory Statement: I have reviewed and agree with the student/clinical fellow's documentation: N/A Speech Language Pathologist: Edie Funes M.A., [facility]-CNA PCT
--- NOTE | 2024-06-16 12:13 | MHC.CLN ---
DIET ADVANCED TO CHOPPED PER CEMENT CUTTER PO INTAKE VARIABLE RANGING FROM 0-75% MONITOR PO INTAKE CLOSELY RD TO FOLLOW WEEKLY
--- NOTE | 2024-06-16 12:27 | PM.GIPN ---
Subjective Subjective Date of Service: 06/16/24 Interval History: managing PO today coming down a little on O2 still SOB still wheezy denies dysphagia, no nasal regurgitation Critical Care Time (minutes): 0 Physical Exam Vital Signs: Vital Signs: Last Vital Signs Temp 97.2 F 06/16/24 11:25 Pulse 76 06/16/24 11:25 Resp 15 06/16/24 11:25 BP 122/60 06/16/24 11:25 Pulse Ox 95 06/16/24 11:25 O2 Del Method Nasal Cannula 06/16/24 11:25 O2 Flow Rate 2 06/16/24 11:25 FiO2 50 06/12/24 16:52 Oxygen Flow Rate 2 05/25/24 23:08 BMI result Body Mass Index 33.0 EXAM: GENERAL: The patient is well developed and nontoxic. VITAL SIGNS:see workflow HEENT: Nonicteric sclerae, PERRLA, EOMI. Oropharynx clear. Moist mucous membranes. Conjunctivae appear well perfused. No thyroid mass. CHEST: Chest wall is nontender. HEART: Regular rate and rhythm without murmurs. LUNGS: b/l wheezing ABDOMEN: Soft, positive bowel sounds, nontender, no organomegaly.no flank tenderness SKIN: No rash, no excessive bruising, petechiae, or purpura. NEUROLOGIC: Cranial nerves II-XII intact without motor/sensory deficit. Psych: normal affect Objective Data Labs 06/14/24 04:44 06/14/24 04:44 Microbiology Microbiology Results: Microbiology 06/02/24 09:42 Blood - Venous Blood Culture - Final No growth after 5 days. 06/02/24 09:42 Blood - Venous Blood Culture - Final No growth after 5 days. 06/02/24 11:44 Bronchial Alveo Lavage Gram Stain - Final 06/02/24 11:44 Bronchial Alveo Lavage - Final No growth after 2 days 05/25/24 23:41 Blood - Venous Blood Culture - Final No growth after 5 days. 05/25/24 23:31 Blood - Venous Blood Culture - Final No growth after 5 days. 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 Quality Stroke Does the patient have a stroke diagnosis?: No VTE Prior VTE?: No VTE Risk Level:: Medical - moderate - high VTE Device Contraindication: N/A - Device Ordered VTE Drug Contraindication: Treatment Not Indicated
[2024-06-16] MEDS: Acetylcysteine 10 % 400 MG/4 ML VIAL INHALE (19:06)
[2024-06-17] VITALS (10 sets, daily range): BP systolic 134–154; BP diastolic 62–72; PULSE 78–103; RESP 16–18; TEMP 36.6–37.2; O2SAT 91–96; BMI 31.6
[2024-06-17] MEDS: Piperacillin Sodium/Tazobactam 4.5 GM in 0.9 % Sodium Chloride 100 ML IV ×4 (05:10→21:05)
[2024-06-17] MEDS: Omeprazole 40 MG CAPSULE.DR PO ×2 (05:52→16:31)
[2024-06-17] MEDS: Albuterol Sulfate (0.083%) 2.5 MG/3 ML VIAL.NEB INHALE ×2 (08:07→19:54)
[2024-06-17] MEDS: CYCLOSPORINE 0.05% 1 EACH EYE-BOTH ×2 (08:53→21:05)
[2024-06-17] MEDS: Amiodarone HCL 200 MG TABLET 400 MG PO (08:53)
[2024-06-17] MEDS: Hydrocortisone 1 % Cream 28.35 GM TUBE 1 APPL TOPICAL ×2 (08:54→21:05)
--- NOTE | 2024-06-17 09:53 | MHC.SL.SWA ---
Speech Pathologist Impression: Risk of Aspiration, Mild Oropharyngeal Dysphagia Risk of Aspiration Due to: Hx of Recent Extubation Dysphasia Diet Status: No Change Liquid Consistency and Strategies for Safe Swallow: Liquid Intake Recommendation: Thin Liquid Intake Strategies: Small Sips No Straws Double Swallow Solid Food Consistency: Dietary Recommendations: Chopped/Advanced (NDD3) Oral Medication Intake: Crushed with Puree Please contact the pharmacy regarding appropriate crushable or liquid drug formulations that are available whenever modified delivery is recommended. Compensatory Strategies and Precautions to be Taken for Safe Swallow: Sitting Upright (90 deg) Double Swallow No Straw Liquids from Cup Liquids from Spoon Small Bites and Sips Alternate Liquids/Solids Rate of Ingestion Change Supervision While Eating and Drinking for Safe Swallow: Total Supervision (1:1) Foods to Avoid: Mixed consistencies Swallowing Recommended Treatments: Compens. Strategy Educat. Recommendation for Speech: D/C Inpatient Speech Comment: Intake Recommendations: Route: PO Diet Grade: Chopped/Advanced (NDD3) Liquid Consistencies: Thin Post-Study Functional Oral Intake Scale (FOIS): 5- Total oral intake of multiple consistencies requiring special preparation Transient penetration on thin liquid, spontaneously cleared with no subsequent aspiration. No evidence of aspiration or penetration with trials of thickened liquids and solids. Minimal pharyngeal residue cleared with self-initiated dry swallows. Recommend START on CHOPPED/ADVANCED (NDD3) diet for ease of mastication and THIN liquids, pills CRUSHED in PUREE. 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 The patient will tolerate the least restrictive diet with a safe/efficient swallow to maintain adequate nutrition and hydration. ? The patient and/or family will participate in further education for swallowing goals. Short Term Goals: ? Diet - The patient will tolerate a modified dysphagia diet with thin liquids without signs or symptoms of penetration/aspiration 100% of the time. - The patient will participate in therapeutic PO trials with the [employer]. ? Guidelines - The patient will comply with/recall the following guidelines/strategies 100% of the time with minimal cuing: Bolus Volume Change, Rate of Ingestion Change, Additional Swallow(s) per Bolus, Effortful Swallow (used during PO intake), No Straws. ? Education - The patient, family, caregiver, nurse will verbalize/demonstrate understanding of the results of this evaluation, the above recommendations, and the swallowing guidelines. Project Scientist Clinican/Clinical Fellow: No Supervisory Statement: I have reviewed and agree with the student/clinical fellow's documentation: N/A Speech Language Pathologist: Edie Funes M.A., [facility]-[employer]
--- NOTE | 2024-06-17 10:20 | HO.PM.IMPN ---
Subjective Subjective Date of Service: 06/17/24 Interval History: Seen and examined this morning Follow-up for respiratory failure, pulmonary abscess, pulmonary aspiration Downgraded from the ICU 4/5 back is itchy Review of Systems Review of Systems: Yes all other systems are reviewed and are negative Constitutional Constitutional: Denies chills and Denies fever(s) Respiratory Respiratory: Reports cough Gastrointestinal Gastrointestinal: Denies abdominal pain and Reports nausea Physical Exam Vital Signs: Vital Signs: Last Vital Signs Temp 98.5 F 06/17/24 07:20 Pulse 78 06/17/24 08:09 Resp 18 06/17/24 08:09 BP 136/64 06/17/24 07:20 Pulse Ox 93 06/17/24 07:20 O2 Del Method Nasal Cannula 06/17/24 07:20 O2 Flow Rate 2 06/17/24 07:20 FiO2 50 06/12/24 16:52 Oxygen Flow Rate 2 05/25/24 23:08 BMI result Body Mass Index 31.6 Appearing in no acute distress lung sounds are clear to auscultation heart regular rate rhythm, clear S1, S2 positive bowel sounds, abdomen is soft, nontender neuro patient is alert x3, no focal deficits Mild erythema to left side of back Objective Data Active Medications Acetaminophen (Acetaminophen 325 Mg Tablet) 650 mg PO Q6H PRN PRN Reason: Pain, Mild 1-3,fever,headache Last Admin: 06/10/24 21:09 Dose: 650 mg Documented By: SANDRITA Acetylcysteine (Acetylcysteine 10 % 400 Mg/4 Ml Vial) 400 mg INHALE RBID [facility] Last Admin: 06/17/24 08:07 Dose: Not Given Documented By: ANILA Non-Admin Reason: Patient Refused Albuterol Sulfate (Albuterol Sulfate (0.083%) 2.5 Mg/3 Ml Vial.Neb) 2.5 mg INHALE RBID [facility] Last Admin: 06/17/24 08:07 Dose: 2.5 mg Documented By: ANILA Amiodarone HCl (Amiodarone Hcl 200 Mg Tablet) 400 mg PO DAILY [facility] Last Admin: 06/17/24 08:53 Dose: 400 mg Documented By: RASHARD Calcium Carbonate (Calcium Carbonate 750 Mg Tab.Chew) 750 mg PO Q6H PRN PRN Reason: Heartburn Last Admin: 06/08/24 20:39 Dose: 750 mg Documented By: KRISTEN Guaifenesin/Dextromethorphan (Guaifenesin Dm 100/10/5 Ml 5 Ml Syrup) 5 ml PO Q6H PRN PRN Reason: Cough Last Admin: 06/16/24 00:07 Dose: 5 ml Documented By: FLAVIO Comments: for cough Hydrocortisone (Hydrocortisone 1 % Cream 28.35 Gm Tube) 1 appl TOPICAL BID [facility]; Protocol Last Admin: 06/17/24 08:54 Dose: 1 appl Documented By: RASHARD Piperacillin Sod/Tazobactam (Sod 4.5 gm/ Sodium Chloride) 100 mls @ 200 mls/hr IV Q6H [facility] Last Infusion: 06/17/24 09:35 Dose: Infused Documented By: RASHARD Pt Owned Med ( Cyclosporine 0.05% Eye Emulsion) 1 each EYE-BOTH BID [facility] Last Admin: 06/17/24 08:53 Dose: 1 each Documented By: RASHARD Omeprazole (Omeprazole 40 Mg Capsule.Dr) 40 mg PO BID@0630,1630 [facility] Last Admin: 06/17/24 05:52 Dose: 40 mg Documented By: RADHA Ondansetron HCl (Ondansetron Hcl 4 Mg/2 Ml Vial) 4 mg IVPUSH Q6H PRN PRN Reason: Nausea and Vomiting Last Admin: 06/16/24 03:32 Dose: 4 mg Documented By: FLAVIO Comments: C/O NAUSEA Sodium Chloride (0.9 % Sodium Chloride Flush 3 Ml Syringe) 3 ml IVFLUSH QSHIFT [facility] Last Admin: 06/17/24 08:55 Dose: Not Given Documented By: RASHARD Non-Admin Reason: IV Running Labs 06/14/24 04:44 06/14/24 04:44 Assessment and Plan (1) Pulmonary abscess: Status: Acute (2) Pulmonary aspiration: Status: Acute (3) Acute hypoxemic respiratory failure: Status: Acute Plan 73-year-old lady with underlying history of asthma, AFib on anticoagulation, hyperparathyroidism status post parathyroidectomy admitted on 05/26/2024 with dyspnea and hypoxia her initial CT chest demonstrated no evidence of pulmonary emboli but chronic bibasilar atelectasis. Hospital course significant for recurrent hypoxic events that appears to be related to recurrent pulmonary aspiration requiring intubation on 06/02/2024, extubated 06/03/2024. While intubating bronchoscopic clearance demonstrated large burden of thick secretions with cultures negative to date. On 06/09/2024 patient has an episode of respiratory distress with refractory hypoxia likely secondary to aspiration requiring transfer to intensive care unit and intubation. Extubated 06/12/2024. Downgraded to the medical floor again on June 14 Acute hypoxic respiratory failure Secondary to pulmonary aspiration and left-sided pulmonary abscess Status post intubation x2 Off high-flow oxygen, currently on 2 L supplemental oxygen Continue IV zosyn, change to Augmentin on discharge for 3-4 weeks MBSS 06/13 showing moderate cricopharyngeal achalasia-seen by GI - rec high dose PPI x 3 months; will need egd when respiratory status stasble speech rec NDD3 diet with thin liquids. continue mucomyst, CPT all cultures negative to date continue speech therapy OOB ambulating home o2 eval Hemoptysis. resolved due to extensive bronch with some friable mucosa Eliquis was d/c H/H has remained stable Paroxysmal Atrial fibrillation with RVR Anticoagulation stopped due to hemoptysis continue amiodarone Hypertension all med stopped in ICU follow BP Moderate persistent asthma Status post steroids DVT prophylaxis-mechanical DISPO home with PT Quality Stroke Does the patient have a stroke diagnosis?: No VTE Prior VTE?: No VTE Risk Level:: Medical - moderate - high VTE Device Contraindication: N/A - Device Ordered VTE Drug Contraindication: Treatment Not Indicated
--- NOTE | 2024-06-17 10:23 | MHC.CM.PN ---
EMR REVIEWED, PT W/RESP FAILURE D/T PULMONARY ASPIRATION/ABSCESS, PT STEP DOWN FROM ICU /5, GI RECOMMENDING CONT HIGH DOSE PPI, HOLDING OFF ON EGD, PER HOSPITALIST ? IF PT WILL NEED W/U FOR TIA, P.T. RECOMMENDING HOME W/SERIVCES, WILL LIKELY NEED HOME O2 EVAL, CM WILL CONT TO FOLLOW DC NEEDS.
[2024-06-17] MEDS: Acetylcysteine 10 % 400 MG/4 ML VIAL INHALE (19:54)
[2024-06-18] VITALS (7 sets, daily range): BP systolic 125–138; BP diastolic 58–66; PULSE 62–110; RESP 16–20; TEMP 36.4–37.4; O2SAT 90–95; BMI 30.2
--- NOTE | 2024-06-18 | ECG_ITS ---
Test Reason : rvr Blood Pressure : */* mmHG Vent. Rate : 76 BPM Atrial Rate : 76 BPM P-R Int : 154 ms QRS Dur : 78 ms QT Int : 416 ms P-R-T Axes : 13 -2 9 degrees QTcB Int : 468 ms Normal sinus rhythm Minimal voltage criteria for LVH, may be normal variant ( R in aVL ) Nonspecific ST and T wave abnormality Abnormal ECG When compared with ECG of 11-Jun-2024 21:49, Sinus rhythm has replaced Atrial fibrillation Nonspecific T wave abnormality now evident in Anterior leads Referred By: Wanda Macdonald Electronically Signed By: Meek Morales
[2024-06-18] MEDS: 0.9 % Sodium Chloride Flush 3 ML SYRINGE IVFLUSH ×4 (00:19→23:29)
[2024-06-18] MEDS: Piperacillin Sodium/Tazobactam 4.5 GM in 0.9 % Sodium Chloride 100 ML IV ×4 (03:31→23:28)
[2024-06-18] MEDS: Omeprazole 40 MG CAPSULE.DR PO ×2 (05:27→17:49)
[2024-06-18] MEDS: Albuterol Sulfate (0.083%) 2.5 MG/3 ML VIAL.NEB INHALE ×2 (08:00→19:23)
[2024-06-18] MEDS: CYCLOSPORINE 0.05% 1 EACH EYE-BOTH ×2 (08:30→20:35)
[2024-06-18] MEDS: Potassium Phosphate/NS 15 MMOL/250 ML PLAST..BAG 62.5 MMOL IV (08:31)
[2024-06-18] MEDS: Amiodarone HCL 200 MG TABLET 400 MG PO (08:31)
[2024-06-18] MEDS: Hydrocortisone 1 % Cream 28.35 GM TUBE 1 APPL TOPICAL ×2 (08:37→20:35)
--- NOTE | 2024-06-18 09:55 | HO.PM.IMPN ---
Subjective Subjective Date of Service: 06/18/24 Interval History: Seen and examined this morning Follow-up for respiratory failure, pulmonary abscess, pulmonary aspiration Downgraded from the ICU 06/14 Review of Systems Review of Systems: Yes all other systems are reviewed and are negative Constitutional Constitutional: Denies chills and Denies fever(s) Respiratory Respiratory: Reports cough Gastrointestinal Gastrointestinal: Denies abdominal pain and Reports nausea Physical Exam Vital Signs: Vital Signs: Last Vital Signs Temp 97.6 F 06/18/24 07:32 Pulse 110 H 06/18/24 08:03 Resp 16 06/18/24 08:03 BP 138/64 06/18/24 07:32 Pulse Ox 94 06/18/24 07:32 O2 Del Method Nasal Cannula 06/18/24 07:32 O2 Flow Rate 2 06/18/24 07:32 FiO2 50 06/12/24 16:52 Oxygen Flow Rate 2 05/25/24 23:08 BMI result Body Mass Index 30.2 Appearing in no acute distress lung sounds are clear to auscultation heart regular rate rhythm, clear S1, S2 positive bowel sounds, abdomen is soft, nontender neuro patient is alert x3, no focal deficits Objective Data Active Medications Acetaminophen (Acetaminophen 325 Mg Tablet) 650 mg PO Q6H PRN PRN Reason: Pain, Mild 1-3,fever,headache Last Admin: 06/10/24 21:09 Dose: 650 mg Documented By: SANDRITA Acetylcysteine (Acetylcysteine 10 % 400 Mg/4 Ml Vial) 400 mg INHALE RBID [facility] Last Admin: 06/18/24 08:00 Dose: Not Given Documented By: PAVAN Non-Admin Reason: Patient Refused Albuterol Sulfate (Albuterol Sulfate (0.083%) 2.5 Mg/3 Ml Vial.Neb) 2.5 mg INHALE RBID [facility] Last Admin: 06/18/24 08:00 Dose: 2.5 mg Documented By: PAVAN Amiodarone HCl (Amiodarone Hcl 200 Mg Tablet) 400 mg PO DAILY [facility] Last Admin: 06/18/24 08:31 Dose: 400 mg Documented By: RIKY Calcium Carbonate (Calcium Carbonate 750 Mg Tab.Chew) 750 mg PO Q6H PRN PRN Reason: Heartburn Last Admin: 06/08/24 20:39 Dose: 750 mg Documented By: KRISTEN Guaifenesin/Dextromethorphan (Guaifenesin Dm 100/10/5 Ml 5 Ml Syrup) 5 ml PO Q6H PRN PRN Reason: Cough Last Admin: 06/16/24 00:07 Dose: 5 ml Documented By: FLAVIO Comments: for cough Hydrocortisone (Hydrocortisone 1 % Cream 28.35 Gm Tube) 1 appl TOPICAL BID [facility]; Protocol Last Admin: 06/18/24 08:37 Dose: 1 appl Documented By: RIKY Piperacillin Sod/Tazobactam (Sod 4.5 gm/ Sodium Chloride) 100 mls @ 200 mls/hr IV Q6H [facility] Last Infusion: 06/18/24 05:02 Dose: Infused Documented By: MIGUEL Potassium Phosphate (Kphos) 15 mmol in 250 mls @ 62.5 mls/hr IV ONCE ONE Stop: 06/18/24 11:35 Last Admin: 06/18/24 08:31 Dose: 62.5 mls/hr Documented By: RIKY Pt Owned Med ( Cyclosporine 0.05% Eye Emulsion) 1 each EYE-BOTH BID [facility] Last Admin: 06/18/24 08:30 Dose: 1 each Documented By: RIKY Omeprazole (Omeprazole 40 Mg Capsule.Dr) 40 mg PO BID@0630,1630 [facility] Last Admin: 06/18/24 05:27 Dose: 40 mg Documented By: MIGUEL Ondansetron HCl (Ondansetron Hcl 4 Mg/2 Ml Vial) 4 mg IVPUSH Q6H PRN PRN Reason: Nausea and Vomiting Last Admin: 06/16/24 03:32 Dose: 4 mg Documented By: FLAVIO Comments: C/O NAUSEA Sodium Chloride (0.9 % Sodium Chloride Flush 3 Ml Syringe) 3 ml IVFLUSH QSHIFT [facility] Last Admin: 06/18/24 08:35 Dose: 3 ml Documented By: RIKY Labs 06/14/24 04:44 06/14/24 04:44 Assessment and Plan (1) Pulmonary abscess: Status: Acute (2) Pulmonary aspiration: Status: Acute (3) Acute hypoxemic respiratory failure: Status: Acute Plan 73-year-old lady with underlying history of asthma, AFib on anticoagulation, hyperparathyroidism status post parathyroidectomy admitted on 05/26/2024 with dyspnea and hypoxia her initial CT chest demonstrated no evidence of pulmonary emboli but chronic bibasilar atelectasis. Hospital course significant for recurrent hypoxic events that appears to be related to recurrent pulmonary aspiration requiring intubation on 06/02/2024, extubated 06/03/2024. While intubating bronchoscopic clearance demonstrated large burden of thick secretions with cultures negative to date. On 06/09/2024 patient has an episode of respiratory distress with refractory hypoxia likely secondary to aspiration requiring transfer to intensive care unit and intubation. Extubated 06/12/2024. Downgraded to the medical floor again on June 14 Paroxysmal Atrial fibrillation with RVR brief episode this morning and back in NSR Anticoagulation stopped due to hemoptysis continue amiodarone Acute hypoxic respiratory failure. Resolved Secondary to pulmonary aspiration and left-sided pulmonary abscess Status post intubation x2 s/p high-flow oxygen, nc, now room air IV zosyn, change to Augmentin on discharge for 3-4 weeks MBSS 06/13 showing moderate cricopharyngeal achalasia>seen by GI>rec high dose PPI x 3 months; will need egd when respiratory status stasble speech rec NDD3 diet with thin liquids. continue mucomyst, CPT all cultures negative to date continue speech therapy OOB ambulating home o2 eval> no oxygen needed Hemoptysis. resolved due to extensive bronch with some friable mucosa Eliquis was d/c H/H has remained stable Hypertension all meds stopped in ICU follow BP Moderate persistent asthma Status post steroids DVT prophylaxis-mechanical DISPO home with PT Quality Stroke Does the patient have a stroke diagnosis?: No VTE Prior VTE?: No VTE Risk Level:: Medical - moderate - high VTE Device Contraindication: N/A - Device Ordered VTE Drug Contraindication: Treatment Not Indicated
--- NOTE | 2024-06-18 13:04 | MHC.CM.PN ---
EMR REVIEWED, PER HOSPITALIST PT W/AFIB W/RVR, NO PLAN FOR DC, ANTIC PT WILL BE MEDICALLY CLEARED FOR DC W/NEW VNA FOR HOME PT TOMORROW 06/19, CM WILL CONT TO FOLLOW DC NEEDS.
--- NOTE | 2024-06-18 17:40 | PM.DS ---
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 86-year-old female with a past medical history of HTN, HLD, hyperparathyroidism status post parathyroidectomy, asthma, GERD, AFib on Eliquis presented to the hospital today with a chief complaint of cough and shortness of breath. Patient reported that for the past 1 week she has been not feeling well. Has been having cough and shortness of breath. Reports occasional sputum production. Denies any sick contacts. Denies any fevers. Two days ago she went to the urgent care and was given prednisone and amoxicillin. But continued to have symptoms and presented to the ER today. Denies any nausea vomiting or diarrhea. Denies any urinary symptoms. Denies any chest pain or palpitations. Denies any lightheadedness or dizziness. Review of all other systems is negative except mentioned above ER course: Per ER team, patient on presentation noted to be short of breath, minimal wheezing, CTA chest showed no evidence of PE but noted to have bilateral lower lobe pneumonia versus atelectasis and also noted GT was. Patient was given ceftriaxone and doxycycline. 73-year-old woman admitted on 05/26/2024 with dyspnea and hypoxia her initial CT chest demonstrated no evidence of pulmonary emboli but chronic bibasilar atelectasis. Hospital course significant for recurrent hypoxic events that appears to be related to recurrent pulmonary aspiration requiring intubation on 06/02 2024, extubated 06/03/2024. While intubating bronchoscopic clearance demonstrated large burden of thick secretions with cultures negative to date. On 06/09/2024 patient has an episode of respiratory distress with refractory hypoxia likely secondary to aspiration requiring transfer to intensive care unit and intubation. Extubated 06/12/2024. Downgraded to the medical floor again on June 14. Patient had modified barium swallow on 06/13 24 which showed transient laryngeal penetration of thin liquids no glottic or subglottic aspiration with moderate persistent cricopharyngeal achalasia. Discussed with Gastroenterology who did not recommend EGD at this time that symptoms may be secondary to reflux and and will treat with PPI. Patient has been able to eat NDD 3 diet recommended by speech. She was treated with Mucomyst, CPT, all cultures have remained negative. She has been off oxygen for 24 hours. She has been treated with IV Zosyn and plan is for discharge with Augmentin for 4 weeks. She did have some episodes of hemoptysis just after her 1st intubation due to undergoing bronchoscopy, she had friable mucosa which cause some bleeding. Her Eliquis was discontinued but will now be resumed. Her H&H has remained stable. She was seen evaluated by Physical therapy and has been able to ambulate on her own therefore plan is to discharge home with physical therapy. Moderate persistent asthma. Status post steroids Time Attestation Discharge Coordination Time (in mins): 48 Quality: Safe Use of Opioids Does Pt have an Active Cancer Diagnosis on the Problem List?: No Quality: Stroke Does the patient have a stroke diagnosis?: No Physical Exam Vital Signs: Vital Signs: Last Vital Signs Temp 98.3 F 06/18/24 15:37 Pulse 77 06/18/24 15:37 Resp 19 06/18/24 15:37 BP 134/63 06/18/24 15:37 Pulse Ox 92 06/18/24 15:37 O2 Del Method Room Air 06/18/24 15:37 O2 Flow Rate 2 06/18/24 07:32 FiO2 50 06/12/24 16:52 Oxygen Flow Rate 2 05/25/24 23:08 BMI result Body Mass Index 30.2 Appearing in no acute distress head is normocephalic atraumatic eyes pupils are PERRLA sclera is anicteric mouth throat mucous membranes are intact and moist neck is supple no lymphadenopathy, no JVD noted lung sounds are clear to auscultation heart regular rate rhythm, clear S1, S2 positive bowel sounds, abdomen is soft, nontender neuro patient is alert x3, no focal deficits Discharge Plan Discharge Anticipated Discharge Date/Time: 06/21/24 10:55 Patient Disposition: Home Health Service Discharge Diagnosis: Paroxysmal atrial fibrillation with rapid ventricular response Acute hypoxic respiratory failure Aspiration pneumonia Hemoptysis Hypokalemia Referrals: Hayden Espana MD [Physician] - None Rachel Mays FNP [Primary Care Provider] - 1 Week Discharge Medications: New omeprazole 40 mg Capsule,Delayed Release(Dr/Ec) 40 mg PO BID@0630,1630 Qty: 60 0RF amoxicillin-pot clavulanate 875-125 mg tablet 1 tab PO BID 28 Days Qty: 56 0RF amiodarone 200 mg Tablet 400 mg PO BID Qty: 55 0RF Rx Instructions: 400 mg twice a day for 5 days and 200 mg daily Continued amlodipine 10 mg tablet 10 mg PO BEDTIME montelukast 10 mg tablet 10 mg PO BEDTIME omega 3-mpm-kef-fish oil [Fish Oil] 1,000 mg (120 mg-180 mg) Capsule 1 cap PO DAILY albuterol sulfate 90 mcg/actuation HFA aerosol inhaler 2 puff INHALATION Q4H PRN (Reason: Wheezing) budesonide-formoterol [Symbicort] 160-4.5 mcg/actuation HFA aerosol inhaler 2 puff inhalation BID cholecalciferol (vitamin D3) [Vitamin D3] 125 mcg (5,000 unit) Tablet 125 mcg PO DAILY cyclosporine 0.05 % dropperette 1 drp ophthalmic (eye) Q12H PRN (Reason: Dry Eye(S)) Rx Instructions: Both eyes cetirizine [Zyrtec] 10 mg Tablet 10 mg PO DAILY guaifenesin 100 mg/5 mL Liquid 200 mg PO Q4H PRN (Reason: Cough) Qty: 473 0RF Eliquis 5 mg Tablet 5 mg PO BID Qty: 60 0RF (DME) nebulizer and compressor Device See Rx Instructions .Route Qty: 1 0RF Rx Instructions: As directed (DME) nebulizer accessories Kit See Rx Instructions .Route Qty: 1 0RF Rx Instructions: As directed albuterol sulfate 2.5 mg /3 mL (0.083 %) solution for nebulization 2.5 mg inhalation Q6H PRN (Reason: Shortness Of Breath Or Wheezing) Qty: 75 0RF metoprolol succinate 25 mg tablet extended release 24 hr 25 mg PO DAILY coenzyme Q10 [CoQ-10] 100 mg Capsule 100 mg PO DAILY turmeric 400 mg Capsule 400 mg PO DAILY Discontinued omeprazole 20 mg capsule,delayed release(DR/EC) 20 mg PO DAILY@0630 azithromycin 250 mg tablet 250 mg PO DAILY amoxicillin-pot clavulanate 875-125 mg tablet 1 tab PO BID prednisone 10 mg tablet 40 mg PO DAILY Taper: Prednisone 40 mg daily for 2 Days and 0 Hour 30 mg daily for 2 Days and 0 Hour 20 mg daily for 2 Days and 0 Hour 10 mg daily for 2 Days and 0 Hour Rx Instructions: see taper instructions Discharge Orders: Discharge Order (Routine); Ordered 06/21/24 Ordered By: Wanda Macdonald Diet: Advance to usual diet Activity on Discharge: As tolerated Stand Alone Forms: Patient Portal Discharge page Print Language: Peruvian Other Ambulatory Orders: Basic Metabolic Panel (Routine) Timeframe: 4 Days Facility: [facility] - Location: Laboratory Ordered By: Wanda Macdonald Care Plan Goals: Home with physical therapy Solid Food Consistency: Dietary Recommendations: Chopped/Advanced (NDD3) Oral Medication Intake: Crushed with Puree Please contact the pharmacy regarding appropriate crushable or liquid drug formulations that are available whenever modified delivery is recommended. Compensatory Strategies and Precautions to be Taken for Safe Swallow: Sitting Upright (90 deg) Double Swallow No Straw Liquids from Cup Liquids from Spoon Small Bites and Sips Alternate Liquids/Solids Rate of Ingestion Change Foods to Avoid: Mixed consistencies Health Concerns: Paroxysmal atrial fibrillation with rapid ventricular response Acute hypoxic respiratory failure Aspiration pneumonia Hemoptysis Hypokalemia Plan of Treatment: Follow-up with primary care provider as needed Take all medications as prescribed Assessment: See discharge summary
[2024-06-18] MEDS: Acetylcysteine 10 % 400 MG/4 ML VIAL INHALE (19:23)
[2024-06-19] VITALS (9 sets, daily range): BP systolic 113–164; BP diastolic 56–74; PULSE 77–140; RESP 16–18; TEMP 36.6–37.2; O2SAT 90–96; BMI 30.2
[2024-06-19] MEDS: Omeprazole 40 MG CAPSULE.DR PO ×2 (06:16→15:59)
[2024-06-19] MEDS: Piperacillin Sodium/Tazobactam 4.5 GM in 0.9 % Sodium Chloride 100 ML IV ×4 (06:16→22:52)
[2024-06-19] MEDS: Albuterol Sulfate (0.083%) 2.5 MG/3 ML VIAL.NEB INHALE (08:18)
[2024-06-19] MEDS: Amiodarone HCL 200 MG TABLET 400 MG PO ×2 (09:22→19:42)
[2024-06-19] MEDS: Hydrocortisone 1 % Cream 28.35 GM TUBE 1 APPL TOPICAL ×2 (09:29→19:42)
[2024-06-19] MEDS: CYCLOSPORINE 0.05% 1 EACH EYE-BOTH ×2 (09:29→19:42)
[2024-06-19] MEDS: 0.9 % Sodium Chloride Flush 3 ML SYRINGE IVFLUSH ×3 (09:30→22:53)
[2024-06-19] MEDS: Metoprolol Tartrate 5 MG/5 ML VIAL IVPUSH (11:56)
[2024-06-19] MEDS: Apixaban 5 MG TABLET PO ×2 (11:56→19:42)
--- NOTE | 2024-06-19 13:12 | HO.PM.IMPN ---
Subjective Subjective Date of Service: 06/19/24 Interval History: Seen and examined this morning Follow-up for respiratory failure, overall breathing improved,ambulated in hallway. +cough but no longer with phlegm or hemoptysis Planned for discharge but then went into atrial fibrillation with rapid ventricular response-heart rate in the 120s to 130s midmorning Review of Systems Review of Systems: Yes all other systems are reviewed and are negative Constitutional Constitutional: Denies chills and Denies fever(s) ENT Ears, Nose, Mouth, and Throat: Denies dizziness Cardiovascular Cardiovascular: Denies chest pain, Denies palpitations and Denies dyspnea Respiratory Respiratory: Denies cough and Denies dyspnea Neurologic Neurologic: Denies dizziness Endocrine Endocrine: Denies palpitations Physical Exam Vital Signs: Vital Signs: Last Vital Signs Temp 98.5 F 06/19/24 11:37 Pulse 98 06/19/24 12:04 Resp 18 06/19/24 11:37 BP 119/61 06/19/24 12:04 Pulse Ox 94 06/19/24 11:37 O2 Del Method Room Air 06/19/24 11:37 O2 Flow Rate 1 06/19/24 07:51 FiO2 50 06/12/24 16:52 Oxygen Flow Rate 2 05/25/24 23:08 BMI result Body Mass Index 30.2 Const: General: cooperative, comfortable, alert and awake Nutritional Appearance: overweight Orientation/consciousness: patient oriented x3 Resp: Other: improved airation, no rhonchi or rales Effort & Inspection: normal respiratory effort, able to speak in complete sentences, no respiratory distress and no use of accessory muscles Auscultation: not clear to auscultation bilaterally Cardio: Rate: regular rate GI: Inspection: No distended Palpation (GI): Soft to palpation and nontender Neuro: General: patient oriented x3 Extrem: General: Yes no pedal edema Objective Data Active Medications Acetaminophen (Acetaminophen 325 Mg Tablet) 650 mg PO Q6H PRN PRN Reason: Pain, Mild 1-3,fever,headache Last Admin: 06/10/24 21:09 Dose: 650 mg Documented By: SANDRITA Acetylcysteine (Acetylcysteine 10 % 400 Mg/4 Ml Vial) 400 mg INHALE RBID [facility] Last Admin: 06/19/24 08:19 Dose: Not Given Documented By: PAVAN Non-Admin Reason: Patient Refused Albuterol Sulfate (Albuterol Sulfate (0.083%) 2.5 Mg/3 Ml Vial.Neb) 2.5 mg INHALE RBID [facility] Last Admin: 06/19/24 08:18 Dose: 2.5 mg Documented By: PAVAN Amiodarone HCl (Amiodarone Hcl 200 Mg Tablet) 400 mg PO DAILY [facility] Last Admin: 06/19/24 09:22 Dose: 400 mg Documented By: GURPREET Apixaban (Apixaban 5 Mg Tablet) 5 mg PO BID [facility] Last Admin: 06/19/24 11:56 Dose: 5 mg Documented By: VIBHA Calcium Carbonate (Calcium Carbonate 750 Mg Tab.Chew) 750 mg PO Q6H PRN PRN Reason: Heartburn Last Admin: 06/08/24 20:39 Dose: 750 mg Documented By: KRISTEN Guaifenesin/Dextromethorphan (Guaifenesin Dm 100/10/5 Ml 5 Ml Syrup) 5 ml PO Q6H PRN PRN Reason: Cough Last Admin: 06/16/24 00:07 Dose: 5 ml Documented By: FLAVIO Comments: for cough Hydrocortisone (Hydrocortisone 1 % Cream 28.35 Gm Tube) 1 appl TOPICAL BID [facility]; Protocol Last Admin: 06/19/24 09:29 Dose: 1 appl Documented By: GURPREET Piperacillin Sod/Tazobactam (Sod 4.5 gm/ Sodium Chloride) 100 mls @ 200 mls/hr IV Q6H [facility] Last Infusion: 06/19/24 10:47 Dose: Infused Documented By: VIBHA Pt Owned Med ( Cyclosporine 0.05% Eye Emulsion) 1 each EYE-BOTH BID [facility] Last Admin: 06/19/24 09:29 Dose: 1 each Documented By: GURPREET Omeprazole (Omeprazole 40 Mg Capsule.) 40 mg PO BID@0630,1630 [facility] Last Admin: 06/19/24 06:16 Dose: 40 mg Documented By: MIGUEL Ondansetron HCl (Ondansetron Hcl 4 Mg/2 Ml Vial) 4 mg IVPUSH Q6H PRN PRN Reason: Nausea and Vomiting Last Admin: 06/16/24 03:32 Dose: 4 mg Documented By: FLAVIO Comments: C/O NAUSEA Sodium Chloride (0.9 % Sodium Chloride Flush 3 Ml Syringe) 3 ml IVFLUSH QSHIFT [facility] Last Admin: 06/19/24 11:56 Dose: 3 ml Documented By: VIBHA Labs 06/14/24 04:44 06/14/24 04:44 Assessment and Plan (1) Pulmonary abscess: Status: Acute (2) Pulmonary aspiration: Status: Acute (3) Acute hypoxemic respiratory failure: Status: Acute (4) Atrial fibrillation with rapid ventricular response: Status: Resolved Plan 73-year-old lady with underlying history of asthma, AFib on anticoagulation, hyperparathyroidism status post parathyroidectomy admitted on 05/26/2024 with dyspnea and hypoxia her initial CT chest demonstrated no evidence of pulmonary emboli but chronic bibasilar atelectasis. Hospital course significant for recurrent hypoxic events that appears to be related to recurrent pulmonary aspiration requiring intubation on 06/02 2024, extubated 06/03/2024. While intubating bronchoscopic clearance demonstrated large burden of thick secretions with cultures negative to date. On 06/09/2024 patient has an episode of respiratory distress with refractory hypoxia likely secondary to aspiration requiring transfer to intensive care unit and intubation. Extubated 06/12/2024. Downgraded to the medical floor again on June 14 Acute hypoxic respiratory failure Secondary to pulmonary aspiration and left-sided pulmonary abscess Status post intubation x2 Off high-flow oxygen Continue IV zosyn, change to Augmentin on discharge for 3-4 weeks MBSS 06/13 showing moderate cricopharyngeal achalasia-seen by GI - rec high dose PPI x 3 months; will need egd when respiratory status stable speech rec NDD3 diet with thin liquids - tolerating at this time mucomyst causing nausea, will d/c; continue CPT all cultures negative to date continue speech therapy Paroxysmal Atrial fibrillation with RVR: in and out of afib multiple times Anticoagulation previouslyy stopped due to hemoptysis - hemoptysis resolved therefor will resume Eliquis metoprolol stopped in ICU, may need to be resumed check electrolytes continue amiodarone for now cardiology consult hemoptysis. resolved due to extensive bronch with some friable mucosa H/H has remained stable d/w pulm, ok to resume Eliquis Hypertension all med stopped in ICU follow BP Moderate persistent asthma Status post steroids DVT prophylaxis-mechanical, eliquis resumed will need repeat PT evaluation for dispo planning Quality Stroke Does the patient have a stroke diagnosis?: No VTE Prior VTE?: No VTE Risk Level:: Medical - moderate - high VTE Device Contraindication: N/A - Device Ordered VTE Drug Contraindication: Treatment Not Indicated
[2024-06-19 14:20] LABS: Blood Urea Nitrogen 3 mg/dL (9-16); Calcium 9.1 mg/dL (8.4-10.2); Creatinine Clr Calc Pharmacy 71.9; Estimated Glomerular Filt Rate > 60; Glucose Random 99 mg/dL (60-115); Magnesium 1.9 mg/dL (1.6-2.6)
[2024-06-19 14:30] LABS: Anion Gap 14 (12-20); Carbon Dioxide 26 mmol/L (22-29); Chloride 102 mmol/L (96-108); Potassium 2.1 mmol/L (3.3-5.1); Sodium 140 mmol/L (135-145)
[2024-06-19] MEDS: Potassium Chloride/H20 10 MEQ/100 ML PIGGYBACK 100 MEQ IV ×4 (14:52→18:09)
[2024-06-19] MEDS: Potassium Chloride Packet 20 MEQ PACKET 60 MEQ PO (14:53)
[2024-06-19] MEDS: Magnesium Sulfate/H2O 2 GM/50 ML PIGGYBACK IV (15:12)
[2024-06-19] MEDS: ondansetron HCL 4 MG/2 ML VIAL IVPUSH (15:18)
--- NOTE | 2024-06-19 15:36 | P.CONCA_ITS ---
History of Present Illness History of Present Illness Date of Service: 06/19/24 Requesting physician: Angie Rowe Consult reason: atrial fibrillation Chief complaint: Hypoxia Narrative: [age] year female presenting with shortness of breath and pneumonia. She was in the intensive care unit. Apparently was getting runs of atrial fibrillation and was started on 400 mg of amiodarone by the ICU team. She has known history of atrial fibrillation and was previously taking Eliquis and at 1 stage was on Multaq. She saw lawyer probate who took her off the Multaq and just put her on metoprolol succinate 25 mg daily along with Eliquis. She is saying she gets palpitations when she developed atrial fibrillation. Telemetry has shown multiple runs of atrial fibrillation and she keeps converting to sinus rhythm on her own. From respiratory point of view she is stable. She is still coughing but has significant improvement. Not on supplemental oxygen. Denying any fevers or chills but has a very poor appetite currently. [facility] Past Medical History Medical History (Updated 06/19/24 @ 18:41 by Meke Morales MD) Pneumonia Hyperparathyroidism Fatty liver Osteopenia Acid reflux disease Basal cell carcinoma Asthma HLD (hyperlipidemia) HTN (hypertension) Surgical History Surgical History H/O parathyroidectomy History of removal of both ovaries H/O section Hx of tonsillectomy H/O colonoscopy Social History Social History Household Members: Significant Other [facility] Do you presently have visiting nurse or other home services: No Alcohol intake: never Patient Tobacco Use Status: Never used Tobacco Second Hand Smoke Exposure: No Advance Directives Date on File: 01/10/24 service: No Meds Allergies Allergy/AdvReac Type Severity Reaction Status Date / Time lisinopril Allergy Severe Difficulty Verified 05/25/24 23:09 Breathing codeine Allergy Intermediate Unconscious Verified 05/25/24 23:09 Active Medications: Current Medications Acetaminophen (Acetaminophen 325 Mg Tablet) 650 mg PO Q6H PRN PRN Reason: Pain, Mild 1-3,fever,headache Last Admin: 06/10/24 21:09 Dose: 650 mg Acetylcysteine (Acetylcysteine 10 % 400 Mg/4 Ml Vial) 400 mg INHALE RBID [facility] Last Admin: 06/19/24 08:19 Dose: Not Given Albuterol Sulfate (Albuterol Sulfate (0.083%) 2.5 Mg/3 Ml Vial.Neb) 2.5 mg INHALE RBID [facility] Last Admin: 06/19/24 08:18 Dose: 2.5 mg Amiodarone HCl (Amiodarone Hcl 200 Mg Tablet) 400 mg PO DAILY [facility] Last Admin: 06/19/24 09:22 Dose: 400 mg Apixaban (Apixaban 5 Mg Tablet) 5 mg PO BID [facility] Last Admin: 06/19/24 11:56 Dose: 5 mg Calcium Carbonate (Calcium Carbonate 750 Mg Tab.Chew) 750 mg PO Q6H PRN PRN Reason: Heartburn Last Admin: 06/08/24 20:39 Dose: 750 mg Guaifenesin/Dextromethorphan (Guaifenesin Dm 100/10/5 Ml 5 Ml Syrup) 5 ml PO Q6H PRN PRN Reason: Cough Last Admin: 06/16/24 00:07 Dose: 5 ml Hydrocortisone (Hydrocortisone 1 % Cream 28.35 Gm Tube) 1 appl TOPICAL BID [facility]; Protocol Last Admin: 06/19/24 09:29 Dose: 1 appl Piperacillin Sod/Tazobactam (Sod 4.5 gm/ Sodium Chloride) 100 mls @ 200 mls/hr IV Q6H [facility] Last Infusion: 06/19/24 10:47 Dose: Infused Potassium Chloride (Potassium Chloride/H20) 10 meq in 100 mls @ 100 mls/hr IV Q1H [facility] Stop: 06/19/24 18:29 Last Admin: 06/19/24 14:52 Dose: 100 mls/hr Magnesium Sulfate (Magnesium Sulfate/H2o) 2 gm in 50 mls @ 25 mls/hr IV ONCE ONE Stop: 06/19/24 17:03 Last Admin: 06/19/24 15:12 Dose: 25 mls/hr Pt Owned Med ( Cyclosporine 0.05% Eye Emulsion) 1 each EYE-BOTH BID [facility] Last Admin: 06/19/24 09:29 Dose: 1 each Omeprazole (Omeprazole 40 Mg Capsule.Dr) 40 mg PO BID@0630,1630 [facility] Last Admin: 06/19/24 06:16 Dose: 40 mg Ondansetron HCl (Ondansetron Hcl 4 Mg/2 Ml Vial) 4 mg IVPUSH Q6H PRN PRN Reason: Nausea and Vomiting Last Admin: 06/19/24 15:18 Dose: 4 mg Sodium Chloride (0.9 % Sodium Chloride Flush 3 Ml Syringe) 3 ml IVFLUSH QSHIFT [facility] Last Admin: 06/19/24 11:56 Dose: 3 ml Home Medications ?Medication ?Instructions ?Recorded ?Confirmed ?Last Taken ?Type amlodipine 10 mg tablet 10 mg PO BEDTIME 10/12/22 05/26/24 05/25/24 History montelukast 10 mg tablet 10 mg PO BEDTIME 10/12/22 05/26/24 05/25/24 History omega 4-utx-ydn-fish oil 1,000 mg 1 cap PO DAILY 10/12/22 05/26/24 05/25/24 History (120 mg-180 mg) capsule (Fish Oil) omeprazole 20 mg capsule,delayed 20 mg PO DAILY@0630 10/12/22 05/26/24 05/25/24 History release albuterol sulfate 90 mcg/actuation 2 puff inhalation Q4H PRN Wheezing 10/01/23 05/26/24 01/16/24 History aerosol inhaler budesonide-formoterol HFA 160 2 puff inhalation BID 10/01/23 05/26/24 05/25/24 History mcg-4.5 mcg/actuation aerosol inhaler (Symbicort) cholecalciferol (vitamin D3) 125 125 mcg PO DAILY 10/01/23 05/26/24 05/25/24 History mcg (5,000 unit) tablet (Vitamin D3) cetirizine 10 mg tablet (Zyrtec) 10 mg PO DAILY 01/10/24 05/26/24 05/25/24 History cyclosporine 0.05 % eye drops in a 1 drp ophthalmic (eye) Q12H PRN 01/10/24 05/26/24 05/25/24 History dropperette Dry Eye(S) amoxicillin 875 mg-potassium 1 tab PO BID 05/26/24 05/26/24 05/25/24 History clavulanate 125 mg tablet azithromycin 250 mg tablet 250 mg PO DAILY 05/26/24 05/26/24 05/25/24 History coenzyme Q10 100 mg capsule 100 mg PO DAILY 05/26/24 05/26/24 05/25/24 History (CoQ-10) metoprolol succinate 25 mg 25 mg PO DAILY 05/26/24 05/26/24 05/25/24 History tablet,extended release 24 hr prednisone 10 mg tablet 40 mg PO DAILY 05/26/24 05/26/24 05/25/24 History turmeric 400 mg capsule 400 mg PO DAILY 05/26/24 05/26/24 05/25/24 History Physical Exam 2 Vital Signs: Vital Signs: Last Vital Signs Temp 98.2 F 06/19/24 15:21 Pulse 105 H 06/19/24 15:21 Resp 18 06/19/24 15:21 BP 144/71 H 06/19/24 15:21 Pulse Ox 92 06/19/24 15:21 O2 Del Method Room Air 06/19/24 15:21 O2 Flow Rate 1 06/19/24 07:51 FiO2 50 06/12/24 16:52 Oxygen Flow Rate 2 05/25/24 23:08 BMI result Body Mass Index 30.2 GENERAL APPEARANCE: in no acute distress, pleasant. NECK: no carotid bruit, no jugular venous distention. SKIN: no suspicious lesions, warm and dry. HEART: no murmurs, regular rate and rhythm. LUNGS: clear to auscultation bilaterally. Bronchial breath sounds left base. ABDOMEN: soft, nontender. EXTREMITIES: no edema. PERIPHERAL PULSES: equal. NEUROLOGIC: No gross deficits, AAO X 3 Objective Labs and Meds 06/14/24 04:44 06/19/24 13:37 Lab results: Laboratory Results - last 24 hr 06/19/24 13:37 Sodium 140 Potassium 2.1 L* D Chloride 102 Carbon Dioxide 26 Anion Gap 14 BUN 3 L Creatinine 0.65 Estim Creat Clear Calc 71.9 Estimated GFR > 60 Random Glucose 99 Calcium 9.1 Magnesium 1.9 Assessment and Plan (1) Pulmonary abscess: Status: Acute (2) PAF (paroxysmal atrial fibrillation): Status: Acute Plan Pleasant 73 year female with pulmonary abscess who is in and out of atrial fibrillation. She has known history of paroxysmal atrial fibrillation. Not an unusual situation with pulmonary infection to develop paroxysmal atrial fibrillation. Continue Eliquis if she is tolerating it without any bleeding/hemoptysis. She did have some hemoptysis previously and Eliquis was held. In terms of rhythm control strategy, agree with amiodarone but would increase the dose to 400 mg twice a day for the next 5-7 days. After that she can be changed to 200 mg daily. I think as infection improves we will notice that atrial fibrillation is better controlled. We will follow along with you. Thank you for allowing me to participate in the care of your patient. Please feel free to contact me if you have any questions. Procedures Date of Service Date of Service: 06/19/24
[2024-06-19] MEDS: Potassium Chloride ER 20 MEQ TAB.ER.PRT 40 MEQ PO (16:29)
[2024-06-19 19:19] LABS: Potassium 3.2 mmol/L (3.3-5.1)
[2024-06-19] MEDS: Potassium Chloride ER 20 MEQ TAB.ER.PRT PO (22:52)
[2024-06-20] VITALS (8 sets, daily range): BP systolic 126–154; BP diastolic 62–69; PULSE 75–97; RESP 16–19; TEMP 36.3–37.1; O2SAT 91–95; BMI 32.1
[2024-06-20] MEDS: Piperacillin Sodium/Tazobactam 4.5 GM in 0.9 % Sodium Chloride 100 ML IV ×4 (04:44→21:47)
[2024-06-20] MEDS: Omeprazole 40 MG CAPSULE.DR PO ×2 (05:45→15:51)
[2024-06-20 06:43] LABS: Anion Gap 14 (12-20); Blood Urea Nitrogen 4 mg/dL (9-16); Calcium 8.3 mg/dL (8.4-10.2); Carbon Dioxide 22 mmol/L (22-29); Chloride 107 mmol/L (96-108); Creatinine Clr Calc Pharmacy 77.7; Estimated Glomerular Filt Rate > 60; Glucose Random 98 mg/dL (60-115); Potassium 2.8 mmol/L (3.3-5.1); Sodium 140 mmol/L (135-145)
[2024-06-20] MEDS: Potassium Chloride ER 20 MEQ TAB.ER.PRT 40 MEQ PO ×2 (07:53→19:42)
[2024-06-20] MEDS: Apixaban 5 MG TABLET PO ×2 (07:53→19:43)
[2024-06-20] MEDS: Amiodarone HCL 200 MG TABLET 400 MG PO ×2 (07:53→19:42)
[2024-06-20] MEDS: 0.9 % Sodium Chloride Flush 3 ML SYRINGE IVFLUSH ×3 (07:54→19:45)
[2024-06-20] MEDS: Potassium Chloride/H20 10 MEQ/100 ML PIGGYBACK 100 MEQ IV ×6 (07:54→19:07)
[2024-06-20] MEDS: Hydrocortisone 1 % Cream 28.35 GM TUBE 1 APPL TOPICAL ×2 (07:57→19:43)
[2024-06-20] MEDS: CYCLOSPORINE 0.05% 1 EACH EYE-BOTH ×2 (07:57→19:43)
[2024-06-20] MEDS: Albuterol Sulfate (0.083%) 2.5 MG/3 ML VIAL.NEB INHALE ×2 (08:02→19:13)
[2024-06-20 08:19] LABS: Magnesium 2.2 mg/dL (1.6-2.6)
--- NOTE | 2024-06-20 11:34 | HO.PM.IMPN ---
Subjective Subjective Date of Service: 06/20/24 Interval History: Seen and examined this morning Follow-up for hypoxic respiratory failure, hypokalemia, atrial fibrillation Heart rate better controlled overnight Feeling much better this morning, nausea resolved, improved appetite some desaturation overnight. not on oxygen this am, no sob Review of Systems Review of Systems: Yes all other systems are reviewed and are negative Constitutional Constitutional: Denies chills and Denies fever(s) Cardiovascular Cardiovascular: Denies chest pain and Denies palpitations Endocrine Endocrine: Denies palpitations Physical Exam Vital Signs: Vital Signs: Last Vital Signs Temp 97.9 F 06/20/24 07:37 Pulse 78 06/20/24 08:07 Resp 18 06/20/24 08:07 BP 126/62 06/20/24 07:37 Pulse Ox 93 06/20/24 07:37 O2 Del Method Room Air 06/20/24 07:37 O2 Flow Rate 1.5 06/20/24 03:36 FiO2 50 06/12/24 16:52 Oxygen Flow Rate 2 05/25/24 23:08 BMI result Body Mass Index 32.1 Const: General: cooperative, comfortable, no acute distress, alert and awake Nutritional Appearance: average body habitus and overweight Orientation/consciousness: patient oriented x3 Resp: Other: coarse breath sounds; no wheezing/rales Effort & Inspection: normal respiratory effort, able to speak in complete sentences, no respiratory distress and no use of accessory muscles Cardio: Rate: regular rate GI: Inspection: No distended Palpation (GI): Soft to palpation and nontender Neuro: General: patient oriented x3, moves all extremities and CN's II-XI intact bilaterally Extrem: General: Yes no pedal edema Objective Data Active Medications Acetaminophen (Acetaminophen 325 Mg Tablet) 650 mg PO Q6H PRN PRN Reason: Pain, Mild 1-3,fever,headache Last Admin: 06/10/24 21:09 Dose: 650 mg Documented By: SANDRITA Acetylcysteine (Acetylcysteine 10 % 400 Mg/4 Ml Vial) 400 mg INHALE RBID [facility] Last Admin: 06/19/24 08:19 Dose: Not Given Documented By: PAVAN Non-Admin Reason: Patient Refused Albuterol Sulfate (Albuterol Sulfate (0.083%) 2.5 Mg/3 Ml Vial.Neb) 2.5 mg INHALE RBID [facility] Last Admin: 06/20/24 08:02 Dose: 2.5 mg Documented By: PAVAN Amiodarone HCl (Amiodarone Hcl 200 Mg Tablet) 400 mg PO BID [facility] Last Admin: 06/20/24 07:53 Dose: 400 mg Documented By: COREEN Apixaban (Apixaban 5 Mg Tablet) 5 mg PO BID [facility] Last Admin: 06/20/24 07:53 Dose: 5 mg Documented By: COREEN Calcium Carbonate (Calcium Carbonate 750 Mg Tab.Chew) 750 mg PO Q6H PRN PRN Reason: Heartburn Last Admin: 06/08/24 20:39 Dose: 750 mg Documented By: KRISTEN Guaifenesin/Dextromethorphan (Guaifenesin Dm 100/10/5 Ml 5 Ml Syrup) 5 ml PO Q6H PRN PRN Reason: Cough Last Admin: 06/16/24 00:07 Dose: 5 ml Documented By: FLAVIO Comments: for cough Hydrocortisone (Hydrocortisone 1 % Cream 28.35 Gm Tube) 1 appl TOPICAL BID [facility]; Protocol Last Admin: 06/20/24 07:57 Dose: 1 appl Documented By: COREEN Piperacillin Sod/Tazobactam (Sod 4.5 gm/ Sodium Chloride) 100 mls @ 200 mls/hr IV Q6H [facility] Last Infusion: 06/20/24 09:36 Dose: Infused Documented By: COREEN Pt Owned Med ( Cyclosporine 0.05% Eye Emulsion) 1 each EYE-BOTH BID [facility] Last Admin: 06/20/24 07:57 Dose: 1 each Documented By: COREEN Omeprazole (Omeprazole 40 Mg Capsule.Dr) 40 mg PO BID@0630,1630 [facility] Last Admin: 06/20/24 05:45 Dose: 40 mg Documented By: JODY Ondansetron HCl (Ondansetron Hcl 4 Mg/2 Ml Vial) 4 mg IVPUSH Q6H PRN PRN Reason: Nausea and Vomiting Last Admin: 06/19/24 15:18 Dose: 4 mg Documented By: VIBHA Potassium Chloride (Potassium Chloride Er 20 Meq Tab.Er.Prt) 40 meq PO BID [facility] Last Admin: 06/20/24 07:53 Dose: 40 meq Documented By: COREEN Sodium Chloride (0.9 % Sodium Chloride Flush 3 Ml Syringe) 3 ml IVFLUSH QSHIFT IONA Last Admin: 06/20/24 07:54 Dose: 3 ml Documented By: COREEN Labs 06/14/24 04:44 06/20/24 05:47 Labs: Laboratory Results - last 24 hr 06/19/24 06/20/24 13:37 05:47 Hold Purple Top SEE NOTE Anion Gap 14 14 Estim Creat Clear Calc 71.9 77.7 Estimated GFR > 60 > 60 Random Glucose 99 98 Calcium 9.1 8.3 L D Magnesium 1.9 2.2 Assessment and Plan (1) PAF (paroxysmal atrial fibrillation): Status: Acute (2) Pulmonary abscess: Status: Acute (3) Pulmonary aspiration: Status: Acute (4) Acute hypoxemic respiratory failure: Status: Acute (5) Hypokalemia: Status: Acute Plan 73-year-old lady with underlying history of asthma, AFib on anticoagulation, hyperparathyroidism status post parathyroidectomy admitted on 05/26/2024 with dyspnea and hypoxia her initial CT chest demonstrated no evidence of pulmonary emboli but chronic bibasilar atelectasis. Hospital course significant for recurrent hypoxic events that appears to be related to recurrent pulmonary aspiration requiring intubation on 06/02 2024, extubated 06/03/2024. While intubating bronchoscopic clearance demonstrated large burden of thick secretions with cultures negative to date. On 06/09/2024 patient has an episode of respiratory distress with refractory hypoxia likely secondary to aspiration requiring transfer to intensive care unit and intubation. Extubated 06/12/2024. Downgraded to the medical floor again on June 14 severe hypokalemia due to decreased po intake/vomiting -nausea and vomiting resolved continue IV/PO replacement follow BMP in am mag wnl close cardiac monitoring Acute hypoxic respiratory failure Secondary to pulmonary aspiration and left-sided pulmonary abscess Status post intubation x2. Off high-flow oxygen Continue IV zosyn, change to Augmentin on discharge for 3-4 weeks MBSS 06/13 showing moderate cricopharyngeal achalasia-seen by GI - rec high dose PPI x 3 months; will need egd when respiratory status stable speech rec NDD3 diet with thin liquids - tolerating at this time mucomyst causing nausea, will d/c; continue CPT all cultures negative to date continue speech therapy having desaturations at nighttime - plan for overnight pulse oximetry will need updated home oxygen evaluation on the day of discharge Paroxysmal Atrial fibrillation with RVR: in and out of afib multiple times Anticoagulation previously stopped due to hemoptysis - hemoptysis resolved therefor will resume Eliquis metoprolol stopped in ICU seen by cardiology, amiodorone increased to bid potassium low - continue replacement cardiology following hemoptysis. resolved due to extensive bronch with some friable mucosa H/H has remained stable d/w pulm, ok to resume Eliquis Hypertension all med stopped in ICU follow BP Moderate persistent asthma Status post steroids DVT prophylaxis-mechanical, eliquis resumed PT - rec home PT/OT services on d/c Quality Stroke Does the patient have a stroke diagnosis?: No VTE Prior VTE?: No VTE Risk Level:: Medical - moderate - high VTE Device Contraindication: N/A - Device Ordered VTE Drug Contraindication: Treatment Not Indicated
--- NOTE | 2024-06-20 13:17 | MHC.CM.PN ---
EMR REVIEWED, PT W/RAPID AFIB, LOW K, PLAN FOR OVERNIGHT OXIMETRY, ABG'S IN AM, IF PT STAYS IN SINUS RHYTHM PT MAY BE ABLE TO DC OVER W/E, COMFORT PLUS FOLLOWING, CM WILL CONT TO FOLLOW DC NEEDS.
[2024-06-20 13:46] LABS: Potassium 2.9 mmol/L (3.3-5.1)
--- NOTE | 2024-06-20 22:17 | PM.PNCARD ---
Subjective Subjective Date of Service: 06/20/24 Interval history: Seen and examined at bedside. No Afib on telemetry. Physical Exam Vital Signs: Last Vital Signs Temp 98.7 F 06/20/24 19:17 Pulse 91 06/20/24 19:17 Resp 16 06/20/24 19:17 BP 141/65 H 06/20/24 19:17 Pulse Ox 94 06/20/24 15:38 O2 Del Method Room Air 06/20/24 15:38 O2 Flow Rate 1.5 06/20/24 03:36 FiO2 50 06/12/24 16:52 Oxygen Flow Rate 2 05/25/24 23:08 BMI result Body Mass Index 32.1 GENERAL APPEARANCE: in no acute distress, pleasant. NECK: no carotid bruit, no jugular venous distention. SKIN: no suspicious lesions, warm and dry. HEART: no murmurs, regular rate and rhythm. LUNGS: clear to auscultation bilaterally. ABDOMEN: soft, nontender. EXTREMITIES: no edema. PERIPHERAL PULSES: equal. NEUROLOGIC: No gross deficits, AAO X 3 Objective Labs and Meds 06/14/24 04:44 06/20/24 13:04 Lab results: Laboratory Results - last 24 hr 06/20/24 06/20/24 05:47 13:04 Hold Purple Top SEE NOTE Sodium 140 Potassium 2.8 L* 2.9 L* Chloride 107 Carbon Dioxide 22 Anion Gap 14 BUN 4 L Creatinine 0.62 Estim Creat Clear Calc 77.7 Estimated GFR > 60 Random Glucose 98 Calcium 8.3 L D Magnesium 2.2 Progress Note: A&P Assessment and plan (1) PAF (paroxysmal atrial fibrillation): Status: Acute Assessment and Plan: Pleasant 73 year female with pneumonia and AFib. She has been on amiodarone 400 mg twice a day and has been stable. Continue amiodarone 400 mg twice a day x7 days and then can change her to 200 mg daily dosing. She will follow up with Dr. Fabrizio Xavier. Continue anticoagulation. Signing off. Thank you for allowing me to participate in the care of your patient. Please feel free to contact me if you have any questions. Time Spent With Patient Time: Total time managing care of this patient today ____ minutes. Progress Note: Quality Stroke Does the patient have a stroke diagnosis?: No Procedures Date of Service Date of Service: 06/20/24
--- NOTE | 2024-06-20 23:45 | PC.RT ---
Nocturnal oximetry started at 0000; pt on RA. ABG to be drawn post study per MD order
[2024-06-21] MEDS: Piperacillin Sodium/Tazobactam 4.5 GM in 0.9 % Sodium Chloride 100 ML IV ×2 (03:24→09:01)
[2024-06-21 03:41] VITALS: BP 132/61; PULSE 82; RESP 18; TEMP 36.8; O2SAT 93
[2024-06-21 04:46] VITALS: BMI 32.5
[2024-06-21 05:26] LABS: ABG Base Excess 1.4 mmol/L; ABG HCO3 23 mmol/L (22-26); ABG pCO2 30 mmHg (32-45); ABG pO2 60 mmHg (83-108)
[2024-06-21] MEDS: Omeprazole 40 MG CAPSULE.DR PO (05:51)
--- NOTE | 2024-06-21 06:02 | PC.NURSE ---
Patient underwent overnight pulse oximetry monitoring assessment managed by respiratory, followed by 05:00 hour ABG this morning. ABG results reviewed. Patient denies sob and breathing is even and unlabored without distress on room air. Continuous spo2 monitoring in place with tele, spo2 maintaining 93% at this time of writing. Covering Dr. Reeves made aware of results and advised continue to monitor. Plan of care continues.
[2024-06-21 06:54] LABS: Anion Gap 14 (12-20); Blood Urea Nitrogen < 3 mg/dL (9-16); Calcium 8.8 mg/dL (8.4-10.2); Carbon Dioxide 24 mmol/L (22-29); Chloride 109 mmol/L (96-108); Creatinine Clr Calc Pharmacy 73.4; Estimated Glomerular Filt Rate > 60; Glucose Random 115 mg/dL (60-115); Potassium 3.6 mmol/L (3.3-5.1); Sodium 143 mmol/L (135-145)
[2024-06-21 07:21] VITALS: BP 152/74; PULSE 81; RESP 17; TEMP 36.3; O2SAT 93
[2024-06-21 07:50] VITALS: PULSE 88; RESP 17; O2SAT 95
[2024-06-21] MEDS: Albuterol Sulfate (0.083%) 2.5 MG/3 ML VIAL.NEB INHALE (07:50)
[2024-06-21] MEDS: Amiodarone HCL 200 MG TABLET 400 MG PO (09:02)
[2024-06-21] MEDS: 0.9 % Sodium Chloride Flush 3 ML SYRINGE IVFLUSH (09:02)
[2024-06-21] MEDS: Apixaban 5 MG TABLET PO (09:02)
[2024-06-21] MEDS: Potassium Chloride ER 20 MEQ TAB.ER.PRT 40 MEQ PO (09:02)
[2024-06-21] MEDS: Hydrocortisone 1 % Cream 28.35 GM TUBE 1 APPL TOPICAL (09:02)
[2024-06-21] MEDS: CYCLOSPORINE 0.05% 1 EACH EYE-BOTH (09:02)
[2024-06-21 10:05] VITALS: PULSE 106; PULSE 108; PULSE 110; O2SAT 94; O2SAT 96; O2SAT 97
[2024-06-21 11:08] VITALS: BP 132/64; PULSE 89; RESP 18; TEMP 36.9; O2SAT 94
--- NOTE | 2024-06-21 11:13 | P.F2F_ITS ---
Service Date Service Date: 06/21/24 Encounter Date of encounter: 06/21/24 Reasons for Services Signs and symptoms assessed: Aspiration pna Hypokalemia Reason for senior care: CV/CP assess and/or care and other (lab work ) Reason for physical therapy: home safety and mobility Homebound: Leaving the home is medically contraindicated at this time without the asist of a device and/or another person due th the listed conditions above and below. Reason homebound: weakness related to hospital stay Certification: Based on the above findings, I certify that this patient is confined to the home and needs intermittent senior care care, physical therapy and/or speech therapy, or continues to need occupational therapy. The patient is under my care, and I have initiated the establishment of the plan of care. The patient will be followed by a physician who will periodically review the plan of care. Time Spent With Patient Time: Total time managing care of this patient today ____ minutes.
--- NOTE | 2024-06-21 11:37 | MHC.CM.PN ---
Second IMM 06/21/24, Pt has been medically cleared for DC, she will go home via family transport, DCP: home with VNA services from [facility].
[2024-06-22 07:00] LABS: ABG Refer to POC result
== END 2024-06-21 12:50 | disposition home health service (06) | DRG 208 ==
LOC: HO.ED 23:46 → HO.EDOVER 05-26 02:46 → HO.IMC 05-26 08:01 → HO.ICU 06-02 08:09 → HO.IMC 06-05 16:35 → HO.ICU 06-09 11:51 → HO.IMC 06-14 15:53
PROVIDERS: Internal Medicine; Internal Medicine Critical Care Medicine; Internal Medicine Pulmonary Disease; Physician Assistant Medical; Admitting Provider Hospitalist; Emergency Provider Emergency Medicine; PCP Nurse Practitioner Family; Visit Provider Nurse Practitioner Acute Care
DX: J69.0 Pneumonitis due to inhalation of food and vomit (principal); G93.41 Metabolic encephalopathy; J96.01 Acute respiratory failure with hypoxia; R57.0 Cardiogenic shock; J85.1 Abscess of lung with pneumonia; J45.41 Moderate persistent asthma with (acute) exacerbation; J98.11 Atelectasis; J98.19 Other pulmonary collapse; R04.2 Hemoptysis; D68.32 Hemorrhagic disorder due to extrinsic circulating anticoagulants; I95.2 Hypotension due to drugs; T45.515A Adverse effect of anticoagulants, initial encounter; T42.75XA Adverse effect of unspecified antiepileptic and sedative-hypnotic drugs, initial encounter; D64.9 Anemia, unspecified; E87.6 Hypokalemia; I10 Essential (primary) hypertension; I48.0 Paroxysmal atrial fibrillation; K22.0 Achalasia of cardia; R00.0 Tachycardia, unspecified; T44.7X6A Underdosing of beta-adrenoreceptor antagonists, initial encounter; Z20.822 Contact with and (suspected) exposure to COVID-19; Z79.01 Long term (current) use of anticoagulants; Z79.899 Other long term (current) drug therapy
CPT/HCPCS: 0241U; 36415; 36600; 71045; 71250; 71275; 74230; 80048; 80053; 82040; 82803; 82947; 83605; 83690; 83735; 83880; 84100; 84132; 84484; 85025; 85027; 85379; 85610; 86738; 87040; 87070; 87071; 87205; 87449; 87502; 87633; 87640; 87641; 87899; 92526; 92610; 92611; 93005; 93306; 94002; 94003; 94640; 94799; 97110; 97116; 97162; 99285; J0282; J0283; J0696; J1160; J1650; J1940; J2371; J2405; J2470; J2543; J2704; J2919; J3010; J3475; J3480; J7120; P9047; Q9967

== ENCOUNTER → 2024-05-25 23:11 | Outpatient (BNV) | payer MEDICARE, SELFPAY | PROVIDERS: Admitting Provider Hospitalist; Emergency Provider Emergency Medicine; PCP Nurse Practitioner Family; Visit Provider Internal Medicine Cardiovascular Disease | DX: R94.31 Abnormal electrocardiogram [ECG] [EKG] (principal); R06.02 Shortness of breath; R07.89 Other chest pain | CPT/HCPCS: 93010 ==

== ENCOUNTER → 2024-05-25 23:53 | Outpatient (BNV) | payer MEDICARE, SELFPAY | PROVIDERS: Emergency Provider Emergency Medicine; PCP Nurse Practitioner Family; Visit Provider Radiology Diagnostic Radiology | DX: R07.9 Chest pain, unspecified (principal); R05.9 Cough, unspecified; R06.02 Shortness of breath | CPT/HCPCS: 71045 ==

== ENCOUNTER → 2024-05-26 00:58 | Outpatient (BNV) | payer MEDICARE, SELFPAY | PROVIDERS: Admitting Provider Hospitalist; Emergency Provider Emergency Medicine; PCP Nurse Practitioner Family; Visit Provider Radiology Diagnostic Radiology | DX: J96.01 Acute respiratory failure with hypoxia (principal) | CPT/HCPCS: 71275 ==

== ENCOUNTER 2024-05-26 02:41 | Outpatient (BNV) | payer MEDICARE, SELFPAY | END 2024-06-05 09:10 | PROVIDERS: Admitting Provider Hospitalist; Emergency Provider Emergency Medicine; PCP Nurse Practitioner Family; Visit Provider Radiology Diagnostic Radiology | DX: J96.01 Acute respiratory failure with hypoxia (principal) | CPT/HCPCS: 71045 ==

== ENCOUNTER 2024-05-26 02:41 | Outpatient (BNV) | payer MEDICARE, SELFPAY | END 2024-06-13 10:14 | PROVIDERS: Admitting Provider Hospitalist; Emergency Provider Emergency Medicine; PCP Nurse Practitioner Family; Visit Provider Radiology Diagnostic Radiology | DX: R13.10 Dysphagia, unspecified (principal) | CPT/HCPCS: 74230 ==

== ENCOUNTER 2024-05-26 02:41 | Outpatient (BNV) | payer MEDICARE, SELFPAY | END 2024-06-11 21:49 | PROVIDERS: Admitting Provider Hospitalist; Emergency Provider Emergency Medicine; PCP Nurse Practitioner Family; Visit Provider Internal Medicine | DX: J96.01 Acute respiratory failure with hypoxia (principal) | CPT/HCPCS: 93010 ==

== ENCOUNTER 2024-05-26 02:41 | Outpatient (BNV) | payer MEDICARE, SELFPAY | END 2024-06-09 07:13 | PROVIDERS: Admitting Provider Hospitalist; Emergency Provider Emergency Medicine; PCP Nurse Practitioner Family; Visit Provider Radiology Diagnostic Radiology | DX: J96.01 Acute respiratory failure with hypoxia (principal) | CPT/HCPCS: 71045; 71250 ==

== ENCOUNTER 2024-05-26 02:41 | Outpatient (BNV) | payer MEDICARE, SELFPAY | END 2024-06-02 08:58 | PROVIDERS: Admitting Provider Hospitalist; Emergency Provider Emergency Medicine; PCP Nurse Practitioner Family; Visit Provider Radiology Diagnostic Radiology | DX: J96.01 Acute respiratory failure with hypoxia (principal) | CPT/HCPCS: 71045 ==

== ENCOUNTER 2024-05-26 02:41 | Outpatient (BNV) | payer MEDICARE, SELFPAY | END 2024-06-18 14:51 | PROVIDERS: Admitting Provider Hospitalist; Emergency Provider Emergency Medicine; PCP Nurse Practitioner Family; Visit Provider Internal Medicine Cardiovascular Disease | DX: R94.31 Abnormal electrocardiogram [ECG] [EKG] (principal); I48.91 Unspecified atrial fibrillation | CPT/HCPCS: 93010 ==

== ENCOUNTER 2024-05-26 02:41 | Outpatient (BNV) | payer MEDICARE, SELFPAY | END 2024-05-31 10:07 | PROVIDERS: Admitting Provider Hospitalist; Emergency Provider Emergency Medicine; PCP Nurse Practitioner Family; Visit Provider Radiology Diagnostic Radiology | DX: J96.01 Acute respiratory failure with hypoxia (principal) | CPT/HCPCS: 71250 ==

== ENCOUNTER 2024-05-26 02:41 | Outpatient (BNV) | payer MEDICARE, SELFPAY | END 2024-05-28 13:00 | PROVIDERS: Admitting Provider Hospitalist; Emergency Provider Emergency Medicine; PCP Nurse Practitioner Family; Visit Provider Internal Medicine Cardiovascular Disease | DX: R06.02 Shortness of breath (principal) | CPT/HCPCS: 93306 ==

== ENCOUNTER → 2024-05-26 02:41 | Outpatient (BNV) | payer MEDICARE, SELFPAY | PROVIDERS: Admitting Provider Hospitalist; Emergency Provider Emergency Medicine; PCP Nurse Practitioner Family; Visit Provider Internal Medicine Critical Care Medicine | DX: J96.01 Acute respiratory failure with hypoxia (principal); J18.9 Pneumonia, unspecified organism; E87.6 Hypokalemia | CPT/HCPCS: 31624; 99291 ==

== ENCOUNTER → 2024-05-26 02:41 | Outpatient (BNV) | payer MEDICARE, SELFPAY | PROVIDERS: Admitting Provider Hospitalist; Emergency Provider Emergency Medicine; PCP Nurse Practitioner Family; Visit Provider Internal Medicine | DX: J96.01 Acute respiratory failure with hypoxia (principal); J18.9 Pneumonia, unspecified organism; J98.11 Atelectasis | CPT/HCPCS: 99232; 99233; 99499 ==

== ENCOUNTER → 2024-05-26 02:41 | Outpatient (BNV) | payer MEDICARE, SELFPAY | PROVIDERS: Admitting Provider Hospitalist; Emergency Provider Emergency Medicine; PCP Nurse Practitioner Family; Visit Provider Internal Medicine Gastroenterology | DX: J18.9 Pneumonia, unspecified organism (principal) | CPT/HCPCS: 99223 ==

== ENCOUNTER → 2024-05-26 02:41 | Outpatient (BNV) | payer MEDICARE, SELFPAY | PROVIDERS: Admitting Provider Hospitalist; Emergency Provider Emergency Medicine; PCP Nurse Practitioner Family; Visit Provider Internal Medicine Pulmonary Disease | DX: R09.02 Hypoxemia (principal); J98.11 Atelectasis | CPT/HCPCS: 99222 ==

== ENCOUNTER → 2024-05-26 02:41 | Outpatient (BNV) | payer MEDICARE, SELFPAY | PROVIDERS: Admitting Provider Hospitalist; Emergency Provider Emergency Medicine; PCP Nurse Practitioner Family; Visit Provider Internal Medicine Cardiovascular Disease | DX: J85.2 Abscess of lung without pneumonia (principal); I48.0 Paroxysmal atrial fibrillation | CPT/HCPCS: 99223 ==

== ENCOUNTER 2024-06-25 12:03 | Outpatient (REF) | payer MEDICARE, SELFPAY ==
[2024-06-25 14:06] LABS: Anion Gap 15 (12-20); Blood Urea Nitrogen 7 mg/dL (9-16); Calcium 9.6 mg/dL (8.4-10.2); Carbon Dioxide 23 mmol/L (22-29); Chloride 107 mmol/L (96-108); Estimated Glomerular Filt Rate > 60; Glucose Random 165 mg/dL (60-115); Potassium 3.1 mmol/L (3.3-5.1); Sodium 142 mmol/L (135-145)
--- OUTSIDE RECORDS SUMMARY | 2024-06-25 14:27 | XMS_ITS | Patient Health Record ---
Author Organization [facility] Address [address] [place] [address] Care Team Providers Care Relationship Advisor Name Role Phone WALDEMAR BROTHERS Primary Care Provider Unavail Pako Huertas Jr Unavailable Allergies Allergen (clinical drug ingredient) Drug/Non Drug Allergy documented on EMR Reaction Allergy Type Onset Date Status Codeine Phosphate Unknown Drug Allergy Active Results Component Value Reference Range Notes Liver Panel Reviewed date:04/17/2024 12:31:52 PM Interpretation: Performing Lab:[facility], [address] [place] [id number] Notes/Report: Bilirubin Total 0.7 0.0-1.0 mg/dL Bilirubin Direct 0.2 0.0-0.5 mg/dL Aspartate Amino Transferase 29 5-31 U/L Alanine Aminotransferase 40 0-31 U/L Total Protein 7.8 6.5-8.0 g/dL Albumin Level 4.6 3.5-5.0 g/dL Alkaline Phosphatase 77 39-117 U/L Liver Fibrosis Pnl Reviewed date:04/25/2024 02:09:54 PM Interpretation: Performing Lab:[facility], [address] [place] [phone] Notes/Report: Liver Fibrosis Score 0.47 Liver Fibrosis Stage F1-F2 Liver Fibrosis Interpretation SEE NOTE minimal fibrosis Fibro Test Score (f) Metavir Score f>=0 and f<=0.21 : F0 (no fibrosis) f>0.21 and f<=0.27 : F0-F1 (no fibrosis) f>0.27 and f<=0.31 : F1 (minimal fibrosis) f>0.31 and f<=0.48 : F1-F2 (minimal fibrosis) f>0.48 and f<=0.58 : F2 (moderate fibrosis) f>0.58 and f<=0.72 : F3 (advanced fibrosis) f>0.72 and f<=0.74 : F3-F4 (advanced fibrosis) f>0.74 and f<=1.00 : F4 (severe fibrosis) Nec Inflam Act Score 0.17 Nec Inflam Act Grade A0-A1 Nec Inflam Act Interpretation SEE NOTE no activity ActiTest Score (a) Metavir Score a>=0 and a<=0.17 : A0 (no activity) a>0.17 and a<=0.29 : A0-A1 (no activity) a>0.29 and a<=0.36 : A1 (minimal activity) a>0.36 and a<=0.52 : A1-A2 (minimal activity) a>0.52 and a<=0.60 : A2 (significant activity) a>0.60 and a<=0.62 : A2-A3 (significant activity) a>0.62 and a<=1.00 : A3 (severe activity) WGD-Ziqlo-5-Macroglobulin 305 106-279 mg/dL FIB-Haptoglobin 191 43-212 mg/dL FIB-Apolipoprotein A1 154 101-198 mg/dL FIB-Total Bilirubin 0.6 0.2-1.2 mg/dL FIB-GGT 37 3-65 U/L FIB-ALT 29 6-29 U/L Reference ID [id number] Footnote SEE NOTE The reliability of results is dependent on compliance with the preanalytical and analytical conditions recommended by [employer]. The tests have to be deferred for: acute hemolysis, acute hepatitis, acute inflammation, extra hepatic cholestasis. The advice of a specialist should be sought for interpretation in chronic hemolysis and Gilbert's syndrome. The test interpretation is not validated in liver transplant patients. Isolated extreme values of one of the components should lead to caution in interpreting the results. In case of discordance between a biopsy result and a test, it is recommended to seek the advice of a specialist. The causes of these discordances could be due to a flaw of the test or to a flaw in the biopsy: i.e. a liver biopsy has a 33% variability rate for one fibrosis stage. FibroTest is interpretable for chronic hepatitis B and C, alcoholic and non alcoholic steatosis. ActiTest is interpretable for chronic hepatitis B and C. The performance characteristics have been determined by [employer]. It has not been cleared or approved by the U.S. Food and Drug Administration. Performance characteristics refer to the analytical performance of the test. Pogoseat, the associated logo, [employer] and all associated [employer] silva are the registered trademarks of [employer]. All third republican silva - (R) and (TM) - are the property of their respective owners. (C) 4041-8474 [employer]. All rights reserved. THIS TEST WAS PERFORMED AT: [facility] [address] [place] [address] RYAN CLARK MD,PHD,AMY Reason For Referral No Information Medications Medication SIG (Take, Route, Frequency, Duration) Notes Start Date End Date Status Vitamin D3 Active Hair Skin and Nails Formula Active Albuterol Sulfate (2.5 MG/3ML) 0.083% TAKE 3 ML (2.5 MG TOTAL) BY NEBULIZATION EVERY 6 (SIX) HOURS NEEDED. Inhalation for 7 Active Zinc Active CoQ-10 Active Constable-3 Fish Oil Act sheila Montelukast Sodium 10 [...] Once a day for 30 day(s) Active Immunizations Vaccine Route Administration Date Status Comme nts Influenza Unknown 11/10/2021 Administered Influenza Unknown 01/30/2023 Administered Problems Problem Type SNOMED Code ICD Code Onset Dates Problem Status W/U Status Risk Notes Problem 280744409 Colon cancer screening (Z12.11) Active confirmed Problem 694293027 Elevated LFTs (R79.89) Active confirmed Problem 051218312 Fatty liver (K76.0) Active confirmed Problem 612911947 Long-term curren t use of high risk medication other than anticoagulant (Z79.899) Active confirmed Problem 758665827 Gastroesophageal reflux disease, unspecified whether esophagitis present (K21.9) Active confirmed Vital Signs Temperature 97.7 degrees Fahrenheit 10/17/2023 Blood pressure diastolic 00 mm Hg 10/17/2023 Height 63 in 10/17/2023 Blood pressure systolic 000 mm Hg 10/17/2023 Weight 165 lbs 10/17/2023 BMI 29.23 kg/m2 10/17/2023 Encounters Encounter Location Date Provider Diagnosis [facility] [address] [place] [address] 10/17/2023 Pako Dickens Jr Fatty liver K76.0 ; Gastroesophageal reflux disease, unspecified whether esophagitis present K21.9 and Colon cancer screening Z12.11 [facility] [address] [place] [address] 04/17/2024 Pako Dickens Jr Assessments Encounter Date Diagnosis (ICD Code) Assessment Notes Treatment Notes Treatment Clinical Notes Section Notes 10/17/2023 Fatty liver (ICD-10 - K76.0) labs to be done in mar/apr Currently, there is doing well. Reflux symptoms are under good control. She will continue omeprazole. We discussed diet, lifestyle modifications , and weight management regarding the treatment of reflux. Liver function tests will be rechecked. Fibrosis testing will be ordered. We discussed diet, and weight management regarding the treatment of reflux disease as well as fatty liver. Finally she is up-to-date on colorectal cancer screening. Followup will be in one year. 10/17/2023 Gastroesophageal reflux disease, unspecified whether esophagitis present (ICD-10 - K21.9) Currently, there is doing well. Reflux symptoms are under good control. She will continue omeprazole. We discussed diet, lifestyle modifications , and weight management regarding the treatment of reflux. Liver function tests will be rechecked. Fibrosis testing will be ordered. We discussed diet, and weight management regarding the treatment of reflux disease as well as fatty liver. Finally she is up-to-date on colorectal cancer screening. Followup will be in one year. 10/17/2023 Colon cancer screening (ICD-10 - Z12.11) Currently, there is doing well. Reflux symptoms are under good control. She will continue omeprazole. We discussed diet, lifestyle modifications , and weight management regarding the treatment of reflux. Liver function tests will be rechecked. Fibrosis testing will be ordered. We discussed diet, and weight management regarding the treatment of reflux disease as well as fatty liver. Finally she is up-to-date on colorectal cancer screening. Followup will be in one year. Plan Of Treatment Pending Test Test Name Order Date LIVER [...] Next Appt Details Provider Name:Pako sanchez Jr, 10/22/2024 10:50:00 AM, [address] [place] [address], [address], [place], [address], Insurance Providers Payer Name Payer Address Payer Phone Subscriber Number Group Number Insured Name Patient Relationship to Insured Coverage Start Date Coverage End Date [facility] [address] [place] [phone] [id number] TAMELAVERO Self - patient is the insured Medical (General) History Medical History History ICD Code basal cell carcinoma asthma reflux disease hypertension hyperlipidema osteopenia pneumonia Fatty liver Colonoscopy 09/20/12, normal, ten-year fo llowup Surgical History Surgery Date(Month/Year) caesarean section tonsillectomy hyperparathyroid surgery Oophorectomy Hospitalization History Reason Date(Month/Year) Asthma/ Parainfluenza exacerbation 10/02
--- OUTSIDE RECORDS SUMMARY | 2024-06-25 14:28 | XMS_ITS ---
Author Organization [facility] Address [address] [place] [address] Care Team Providers Care Machine Helper Name Role Phone ZEVNESSWALDEMAR Primary Care Provider Unavail Pako Huertas Jr Unavailable [phone] REASON FOR VISIT labs Encounters Encounter Location Date Provider Diagnosis [facility] [address] [place] [address] 04/17/2024 Pako Dickens Jr Plan Of Treatment Next Appt Details Provider Name:Pako sanchez Jr, 10/22/2024 10:50:00 AM, [address], [address], [place], [address], Progress Notes * VERO RAPPDOB:1950 (73 yo F)Acc No.[id number]:04/17/2024 Patient:?VERO RAPP :1950???Age:73 Y???Sex:Female Address:[address] , [place] [address] * true * Date:? Generated for Printi gisella/Fadimag/eTransmitting on:?06/25/2024 02:27 PM EDT
--- OUTSIDE RECORDS SUMMARY | 2024-06-25 14:28 | XMS_ITS ---
Author Organization [facility] Address [address] [place] [address] Care Team Providers Care Engineer Rf Deployment Name Role Phone WALDEMAR BROTHERS Primary Care Provider Unavail able Pako Dickens Jr Unavailable Allergies Allergen (clinical drug ingredient) Drug/Non Drug Allergy documented on EMR Reaction Allergy Type Onset Date Status Codeine Phosphate Unknown Drug Allergy Active REASON FOR VISIT Patient presents today for an ELEVATED LIVER FUNCTION Medications Medication SIG (Take, Route, Frequency, Duration) Notes Start Date End Date Status Albuterol Sulfate (2.5 MG/3ML) 0.083% TAKE 3 ML (2.5 MG TOTAL) BY NEBULIZATION EVERY 6 (SIX) HOURS NEEDED. Inhalation for 7 Active [place]-3 Fish Oil Act sheila Montelukast Sodium 10 [...] neede d Inhalation every 4 hrs Active Problems Problem Type SNOMED Code ICD Code Onset Dates Problem Status W/U Status Risk Notes Problem 270008358 Gastroesophageal reflux disease, unspecified whether esophagitis present (K21.9) Active confirmed Vital Signs Temperature 97.7 degrees Fahrenheit 10/17/19 24 Blood pressure systolic 000 mm Hg 10/17/19 24 Blood pressure diastolic 00 mm Hg 024 Height 63 in 10/17/2023 Weight 165 lbs 10/17/2023 BMI 29.23 kg/m2 10/17/2023 Encounters Encounter Location Date Provider Diagnosis [facility] [address] [place] [address] 10/17/2023 Pako Ringdavid Vo Fatty liver K76.0 ; Gastroesophageal reflux disease, unspecified whether esophagitis present K21.9 and Colon cancer screening Z12.11 Assessments Encounter Date Diagnosis (ICD Code) Assessment Notes Treatment Notes Treatment Clinical Notes Section Notes 10/17/2023 Fatty liver (ICD-10 - K76.0) labs to be done in Currently, there is doing well. Reflux symptoms [...] be in one year. Plan Of Treatment Treatment Notes Assessment Notes Fatty liver labs to be done in Pending Test Test Name Order Date LIVER PROFILE 10/17/2023 Liver Fibrosis Pnl 10/17/2023 Next Appt Details Follow Up: 1 Year, Reason: Provider Name:Pako sanchez Jr, 10/22/2024 10:50:00 AM, [address], [address], [place], [address], Progress Notes * VERO RAPPDOB:1950 (73 yo F)Acc No.[id number]:10/17/2023 Progress Notes Patient:?VERO RAPP Provider:?Pako Dickens MD :1950???Age:73 Y???Sex:Female D ate:10/17/2023 Address:[address] [place], [place] [id number] Pcp:WALDEMAR BROTHERS Subjective: * Chief Complaints: * ???1. Patient presents today for an ELEVATED LIVER FUNCTION. * HPI: ???New symptom(s):? There is a pleasant 73-year-old woman seen today in followup of nonalcoholic steatohepatitis/fatty liver disease. She last seen in August of last year. At that time labs are stable and ultrasound showed fatty liver. She was following a NOOM diet. ?Since that time, she's generally done well. She is off her diet. Weight has been relatively stable. Reflux symptoms have been under good control. She continues on omeprazole 20 mg daily without any complaints of dysphagia, hematemesis, or melena. She was hospitalized in September with asthma exacerbation and parainfluenza infection. Liver function tests obtained at the time of her hospitalization showed basically normal results with only a mild elevation of her ALT at 34. We reviewed this today. She's had no issues regarding her liver. * Medical History:?Basal cell carcinoma, Asthma, Reflux disease, Hypertension, Hyperlipidema, Osteopenia, Pneumonia, Fatty liver, Colonoscopy 09/20/12, normal, ten-year followup. * Surgical History:?caesarean section , tonsillectomy , hyperparathyroid surgery , Oophorectomy . * Hospitalization/Major Diagno stic Procedure:?Asthma/Parainfluenza exacerbation 10/02. * Family History:?Father: dece ased.?Mother: , The patients mother of pancreatic and l iver cancer at age 90..? no known family hx of colon cancer. Mother had liver cancer. * Social History:?Tobacco Use:?Tobacco Use/Smoking?Are you a: nonsmoker.?Drugs/Alcohol:?Alcohol Screen?Points: 1, Interpretation: Negative.?Miscellaneous:?Marital status: . 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 * Medications:?Taking Symbicor t 80-4.5 MCG/ACT Aerosol 1 puff as needed Inhalation every 4 hrs, Taking Hair Skin and Nails Formula , Taking Vitamin D3 , Taking CoQ-10 , Taking Zinc , Taking Calcium & Magnesium Carbonates , Taking amLODIPine Besylate 10 MG Tablet 1 tablet Orally Once a day, Taking Omeprazole Magnesium 20 MG Tablet Delayed Release 1 tablet 30 minutes before morning meal Orally Once a day, Taking Montelukast Sodium 10 MG Tablet 1 tablet Orally Once a night, Taking [place]-3 Fish Oil , Taking ZyrTEC Allergy 10 MG Tablet 1 tablet Orally Once a day, Taking Albuterol Sulfate (2.5 MG/3ML) 0.083% Nebulization Solution TAKE 3 ML (2.5 MG TOTAL) BY NEBULIZATION EVERY 6 (SIX) HOURS NEEDED. Inhalation , Discontinued Breo Ellipta 200-25 MCG/ACT Aerosol Powder Breath Activated INHALE 1 PUFF BY MOUTH EVERY DAY Inhalation , Medication List reviewed and reconciled with the patient * Allergies:?Codeine Phosphate . Objective: * Vitals:?Wt: 165 lbs, Ht: 63 in, BMI:29.23 Index, BP: 000/00 mm Hg, Temp: 97.7. * Examination: ???General Examination: ???On examination today, she appears well. Skin is anicteric. Lungs are clear. Heart shows regular rate and rhythm. Abdomen is soft without focal mass or tenderness. Extremities are without edema. Assessment: * Assessment: 1.?Fatty liver - K76.0 (Prim danyell)?2.?Gastroesophageal reflux disease, unspecified whether esophagitis present - K21.9?3.?Colon cancer screening - Z12.11? Currently, there is doing we ll. Reflux symptoms are under good control. She will continue omeprazole. We discussed diet, lifestyle modifications, and weight management regarding the treatment of reflux. Liver function tests will be rechecked. Fibrosis testing will be ordered. We discussed diet, and weight management regarding the treatment of reflux disease as well as fatty liver. Finally she is up-to-date on colorectal cancer screening. Followup will be in one year. Plan: * Treatment: * Procedure Codes:?3017F COLOR ECTAL CA SCREEN DOC REV, G9903 Pt scrn tbco id as non user, G9744 PATIENT NOT ELIG D/T ACTIVE DX HTN * Preventive Medicine:? ??Counseling:?Care goal follow-up plan:?Above Normal BMI Follow-up?Giving encouragement to exercise,?BMI management provided?Yes.? ??Urinary Incontinence:?Urinary Incontinence?Assessment:?Present,?Plan of care documented:?Yes,?Type of plan of care:?Addressing co-morbid factors.? ??Screenings:?Fall Risk Screening?Fall Risk Assessment:?No falls in the past year.? * Follow Up:?1 Year * * Sign off status: Completed true * Provider:?Pako Dickens MD Date:?0 10/17/2023 Generated for Maureen obando/Ina/Dwayneitting on:?06/25/2024 02:27 PM EDT History and Physical Notes * HPI (History of Present Illness) Category Sub-Category Detail Notes Category Not es New symptom(s) There is a pleasant 73-year-old woman seen today in followup of nonalcoholic steatohepatitis/fatty liver disease. She last seen in August of last year. At that time labs are stable and ultrasound showed fatty liver. She was following a NOOM diet. Since that time, she's generally done well. She is off her diet. Weight has been relatively stable. Reflux symptoms have been under good control. She continues on omeprazole 20 mg daily without any complaints of dysphagia, hematemesis, or melena. She was hospitalized in September with asthma exacerbation and parainfluenza infection. Liver function tests obtained at the time of her hospitalization showed basically normal results with only a mild elevation of her ALT at 34. We reviewed this today. She's had no issues regarding her liver. Examination Category Sub-Category Detail Notes Category Not es General Examination On exami nation today, she appears well. Skin is anicteric. Lungs are clear. Heart shows regular rate and rhythm. Abdomen is soft without focal mass or tenderness. Extremities are without edema.
== END 2024-06-25 12:04 | disposition home or self-care (01) ==
LOC: HO.LAB 12:03
PROVIDERS: PCP Nurse Practitioner Family; Visit Provider Nurse Practitioner Acute Care
DX: I10 Essential (primary) hypertension (principal); T17.900A Unspecified foreign body in respiratory tract, part unspecified causing asphyxiation, initial encounter
CPT/HCPCS: 36415; 80048

== ENCOUNTER 2024-07-29 07:49 | Day surgery (SDC) | payer MEDICARE, SELFPAY ==
--- OUTSIDE RECORDS SUMMARY | 2024-07-22 12:47 | XMS_ITS | Patient Health Record ---
Author Organization [facility] Address [address] [place] [address] Care Team Providers Care System Designer Name Role Phone WALDEMAR BROTHERS Primary Care Provider Unavail Pako Huertas Jr Unavailable Allergies Allergen (clinical drug ingredient) Drug/Non Drug Allergy documented on EMR Reaction Allergy Type Onset Date Status Codeine Phosphate Unknown Drug Allergy Active Results Component Value Reference Range Notes Liver Panel Reviewed date:04/17/2024 12:31:52 PM Interpretation: Performing Lab:[facility], [address] [place] [phone] Notes/Report: Bilirubin Total 0.7 0.0-1.0 mg/dL Bilirubin Direct 0.2 0.0-0.5 mg/dL Aspartate Amino Transferase 29 5-31 U/L Alanine Aminotransferase 40 0-31 U/L Total Protein 7.8 6.5-8.0 g/dL Albumin Level 4.6 3.5-5.0 g/dL Alkaline Phosphatase 77 39-117 U/L Liver Fibrosis Pnl Reviewed date:04/25/2024 02:09:54 PM Interpretation: Performing Lab:[facility], [address] [place] [id number] Notes/Report: Liver Fibrosis Score 0.47 Liver Fibrosis [...] a>0.62 and a<=1.00 : A3 (severe activity) MZH-Ktaox-1-Macroglobulin 305 106-279 mg/dL FIB-Haptoglobin 191 43-212 mg/dL FIB-Apolipoprotein A1 154 101-198 mg/dL FIB-Total Bilirubin 0.6 0.2-1.2 mg/dL FIB-GGT 37 3-65 U/L FIB-ALT 29 6-29 U/L Reference ID [id number] Footnote SEE NOTE The reliability of results is dependent on compliance with the preanalytical and analytical conditions recommended by [employer]. The tests have to be deferred for: [...] The performance characteristics have been determined by [facility]. It has not been cleared or approved by the U.S. Food and Drug Administration. Performance characteristics refer to the analytical performance of the test. rumr, the associated logo, [employer] and all associated [employer] silva are the registered trademarks of [employer]. All third alliance party silva - (R) and (TM) - are the property of their respective owners. (C) [id number] [employer]. All rights reserved. THIS TEST WAS PERFORMED AT: [employer] [facility] [address] [place] [address] RYAN CLARK MD,PHD,AMY Reason For Referral No Information Medications Medication SIG (Take, Route, Frequency, Duration) Notes Start Date End Date Status Calcium & Magnesium Carbonates Active Probiotic 250 MG as directed Orally Active amLODIPine Besylate 10 MG 1 tablet Orall y Once a day for 30 day(s) Active Vitamin D3 Active CoQ-10 Active Symbicort 80-4.5 MCG/ACT 1 puff as neede d Inhalation every 4 hrs Active Albuterol Sulfate (2.5 MG/3ML) 0.083% TAKE 3 ML (2.5 MG TOTAL) BY NEBULIZATION EVERY 6 (SIX) HOURS NEEDED. Inhalation for 7 Active Hair Skin and Nails Formula Active Metoprolol Succinate 25 MG 1 capsule Ora lly Once a day Active [place]-3 Fish Oil Act sheila Omeprazole 40 MG 1 capsule 1/2 to 1 h our before morning meal Orally Once a day Active ZyrTEC Allergy 10 MG 1 tablet Orally Once a day Active [place]-Glycine Act sheila Eliquis 5 MG as directed Orally Active Montelukast Sodium 10 MG 1 tablet Orally Once a night Active Zinc Active Immunizations Vaccine Route Administration Date Status Comme nts Influenza Unknown 11/10/2021 Administered Influenza Unknown 01/30/2023 Administered Influenza Unknown 11/27/2023 Administered Problems Problem Type SNOMED Code ICD Code Onset Dates Problem Status W/U Status Risk Notes Problem 510282982 Colon cancer screening (Z12.11) Active confirmed Problem 668390362 Elevated LFTs (R79.89) Active confirmed Problem 800972268 Fatty liver (K76.0) Active confirmed Problem 236027157 Long-term curren t use of high risk medication other than anticoagulant (Z79.899) Active confirmed Problem 610803680 Gastroesophageal reflux disease, unspecified whether esophagitis present (K21.9) Active confirmed Vital Signs Temperature 97.7 degrees Fahrenheit 07/21/2024 Blood pressure diastolic 01 mm Hg 07/21/2024 Height 63 in 07/21/2024 Blood pressure systolic 001 mm Hg 07/21/2024 Weight 172.6 lbs 07/21/2024 BMI 30.57 kg/m2 07/21/2024 Encounters Encounter Location Date Provider Diagnosis [facility] [address] [place] [phone] 10/17/2023 Pako Dickens Jr Fatty liver K76.0 ; Gastroesophageal reflux disease, unspecified whether esophagitis present K21.9 and Colon cancer screening Z12.11 [facility] [address] [place] [phone] 07/21/2024 Pako Dickens Jr Gastroesophageal reflux disease, unspecified whether esophagitis present K21.9 ; Fatty liver K76.0 ; Long-term current use of high risk medication other than anticoagulant Z79.899 and Colon cancer screening Z12.11 [facility] [address] [place] [phone] 04/17/2024 Pako Dickens Jr Assessments Encounter Date [...] screening. Followup will be in one year. 07/21/2024 Gastroesophageal reflux disease, unspecified whether esophagitis present (ICD-10 - K21.9) We discussed he r symptoms today. We discussed gastroesophageal reflux disease. We discussed endoscopy today. This will be arranged. She understand risks and benefits and agrees to proceed. We discussed elevated liver function tests. These have been stable. These will be continued to be monitored. She will continue on omeprazole at 40 mg twice daily. Follow-up will be pending results of her testing.Today's visit was 30 minutes. 10/17/2023 Colon cancer screening (ICD-10 - Z12.11) [...] screening. Followup will be in one year. 07/21/2024 Fatty liver (ICD-10 - K76.0) We discussed her symptoms today. We discussed gastroesophageal reflux disease. We discussed endoscopy today. This will be arranged. She understand risks and benefits and agrees to proceed. We discussed elevated liver function tests. These have been stable. These will be continued to be monitored. She will continue on omeprazole at 40 mg twice daily. Follow-up will be pending results of her testing.Today's visit was 30 minutes. 07/21/2024 Long-term current use of high risk medication other than anticoagulant (ICD-10 - Z79.899) We discussed her symptoms today. We discussed gastroesophageal reflux disease. We discussed endoscopy today. This will be arranged. She understand risks and benefits and agrees to proceed. We discussed elevated liver function tests. These have been stable. These will be continued to be monitored. She will continue on omeprazole at 40 mg twice daily. Follow-up will be pending results of her testing.Today's visit was 30 minutes. 07/21/2024 Colon cancer screening (ICD-10 - Z12.11) We discussed her symptoms today. We discussed gastroesophageal reflux disease. We discussed endoscopy today. This will be arranged. She understand risks and benefits and agrees to proceed. We discussed elevated liver function tests. These have been stable. These will be continued to be monitored. She will continue on omeprazole at 40 mg twice daily. Follow-up will be pending results of her testing.Today's visit was 30 minutes. Plan Of Treatment Pending Test Test Name Order Date LIVER PROFILE 03/16/2022 LIVER PROFILE 10/17/2023 LIVER PROFILE 08/17/2022 IRON + IBC (FE) 03/16/2022 FERRITIN 03/16/2022 CBC w/o DIFF 03/16/2022 PROTHROMBIN TIME (PT, INR) 03/16/2022 HEPATITIS A,B,C PROFILE 03/16/2022 MITOCHONDRIAL AB 03/16/2022 SMOOTH MUSCLE ANTIBODIES 03/16/2022 US ABD 08/17/2022 Liver Fibrosis Pnl 10/17/2023 Future Test Test Name Order Date US ABD 11/19/2011 COLONOSCOPY 06/24/2012 COLONOSCOPY 08/17/2022 UPPER GI ENDOSCOPY 07/21/2024 Next Appt Details Provider Name:Pako sanchez , 07/29/2024 09:50:00 AM, [address] [place] [address] , [place], [place], [phone], Insurance Providers Payer Name Payer Address Payer Phone Subscriber Number Group Number Insured Name Patient Relationship to Insured Coverage Start Date Coverage End Date [facility] [address] [place] [phone] [id number] VERO RAPP Self - patient is the insured 4 Medical (General) History Medical History History ICD Code basal cell carcinoma asthma reflux disease hypertension hyperlipidema osteopenia pneumonia Fatty liver Colonoscopy 11/01, tubular adenoma, 7-yea r follow-up Surgical History Surgery Date(Month/Year) Oophorectomy hyperparathyroid surgery tonsillectomy caesarean section Hospitalization History Reason Date(Month/Year) pneumonia 02/02, 05/26/23 Asthma/ Parainfluenza exacerbation 10/02
--- OUTSIDE RECORDS SUMMARY | 2024-07-22 12:48 | XMS_ITS ---
Author Organization [facility] Address [address] [place] [address] Care Team Providers Care General Farmworker Name Role Phone WALDEMAR BROTHERS Primary Care [...] (SIX) HOURS NEEDED. Inhalation for 7 Active [place]-3 Fish Oil Act sheila Montelukast Sodium 10 [...] Problem Status W/U Status Risk Notes Problem 968985786 Gastroesophageal reflux disease, unspecified whether esophagitis present (K21.9) Active confirmed Vital Signs Temperature 97.7 degrees Fahrenheit 10/17/19 24 Blood pressure systolic 000 mm Hg 10/17/19 24 Blood pressure diastolic 00 mm Hg 024 Height 63 in 10/17/2023 Weight 165 lbs 10/17/2023 BMI 29.23 kg/m2 10/17/2023 Encounters Encounter Location Date Provider Diagnosis [facility] [address] [place] [address] 10/17/2023 Pako Ringdavid Vo Fatty liver K76.0 [...] 1 Year, Reason: Provider Name:Pako sanchez Jr, 07/29/2024 09:50:00 AM, [address] [place] [address] , [place], [place], [phone], Progress Notes * VERO RAPPDOB:1950 (73 yo F)Acc No.[id number]:10/17/2023 Progress Notes Patient:?VERO RAPP Provider:?Pako Dickens MD :1950???Age:73 Y???Sex:Female D ate:10/17/2023 Address:[address] [place], [place] [phone] Pcp:WALDEMAR BROTHERS Subjective: * Chief Complaints: * [...] Screen?Points: 1, Interpretation: Negative.?Miscellaneous:?Marital status: . 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 * Medications:?Taking Symbicor t 80-4.5 MCG/ACT [...] 1 tablet Orally Once a night, Taking [place]-3 Fish Oil , Taking ZyrTEC Allergy 10 [...] Dickens MD Date:?0 10/17/2023 Generated for Maureen obando/Ina/Janicesmitting on:?07/22/2024 12:47 PM EDT History and Physical Notes * [...]
--- OUTSIDE RECORDS SUMMARY | 2024-07-22 12:48 | XMS_ITS ---
Author Organization [facility] Address [address] [place] [address] Care Team Providers Care Report Clerk Name Role Phone WALDEMAR BROTHERS Primary Care Provider Unavail Pako Huertas Jr Unavailable REASON FOR VISIT labs Encounters Encounter Location Date Provider Diagnosis [facility] [address] [place] [phone] 04/17/2024 Pako Dickens Jr Plan Of Treatment Next Appt Details Provider Name:Pako sanchez Jr, 07/29/2024 09:50:00 AM, [address] [place] [address] , [place], [place], [phone], Progress Notes * VERO RAPPDOB:1950 (73 yo F)Acc No.[id number]:04/17/2024 Patient:?VERO RAPP :1950???Age:73 Y???Sex:Female Address:[address] , [place] [address] * true * Date:? Generated for Printi gisella/Fadimag/eTransmitting on:?07/22/2024 12:47 PM EDT
--- OUTSIDE RECORDS SUMMARY | 2024-07-22 12:48 | XMS_ITS ---
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 Computer Repair Instructor Name Role Phone WALDEMAR BROTHERS Primary Care Provider Unavail able Pako Dickens Jr Unavailable Allergies Allergen (clinical drug ingredient) Drug/Non Drug Allergy documented on EMR Reaction Allergy Type Onset Date Status Codeine Phosphate Unknown Drug Allergy Active REASON FOR VISIT elevated lft's Medications Medication SIG (Take, Route, Frequency, Duration) Notes Start Date End Date Status Metoprolol Succinate 25 MG 1 capsule Ora lly Once a day Active Omeprazole 40 MG 1 capsule 1/2 to 1 h our before morning meal Orally Once a day Active Licorice-Glycine Act sheila Eliquis 5 MG as directed Orally Active Probiotic 250 MG as directed Orally Active Albuterol Sulfate (2.5 MG/3ML) 0.083% TAKE 3 ML (2.5 MG TOTAL) BY NEBULIZATION EVERY 6 (SIX) HOURS NEEDED. Inhalation for 7 Active Salem-3 Fish Oil Act sheila ZyrTEC Allergy 10 MG 1 tablet Orally Once a day Active Montelukast Sodium 10 MG 1 tablet Orally Once a night Active Vitamin D3 Active CoQ-10 Active Calcium & Magnesium Carbonates Active amLODIPine Besylate 10 MG 1 tablet Orall y Once a day for 30 day(s) Active Zinc Active Symbicort 80-4.5 MCG/ACT 1 puff as neede d Inhalation every 4 hrs Active Hair Skin and Nails Formula Active Vital Signs Temperature 97.7 degrees Fahrenheit 07/22/19 25 Blood pressure systolic 001 mm Hg 07/22/19 25 Blood pressure diastolic 01 mm Hg 05/12/2 025 Height 63 in 07/21/2024 Weight 172.6 lbs 07/21/2024 BMI 30.57 kg/m2 07/21/2024 Encounters Encounter Location Date Provider Diagnosis [facility] [address] [place] [address] 07/21/2024 Pako Dickens Jr Gastroesophageal reflux disease, unspecified whether esophagitis present K21.9 ; Fatty liver K76.0 ; Long-term current use of high risk medication other than anticoagulant Z79.899 and Colon cancer screening Z12.11 Assessments Encounter Date Diagnosis (ICD Code) Assessment Notes Treatment Notes Treatment Clinical Notes Section Notes 07/21/2024 Gastroesophageal reflux disease, unspecified whether esophagitis [...] her testing.Today's visit was 30 minutes. 07/21/2024 Fatty liver (ICD-10 - K76.0) We [...] visit was 30 minutes. Plan Of Treatment Future Test Test Name Order Date UPPER GI ENDOSCOPY 07/21/2024 Next Appt Details Follow Up: 1 Year,Loida ray n: Provider Name:Pako sanchez , 07/29/2024 09:50:00 AM, [address] [place] [address], [phone], Progress Notes * VERO RAPPDOB:1950 (73 yo F)Acc No.[id number]:07/21/2024 Progress Notes Patient:?VERO RAPP Provider:?Pako Dickens MD :1950???Age:73 Y???Sex:Female D ate:07/21/2024 Address:[address] [place], [place] [id number] Pcp:WALDEMAR BROTHERS Subjective: * Chief Complaints: * ???1. Elevated lft's. * HPI: ???New symptom(s):? Vero is a pleasant 73-year-old woman seen today in follow-up of multiple GI problems. Since we saw her last, she had pneumonia. This was thought related to aspiration. She underwent a barium swallow which showed some reflux. She was seen in the emergency department in May. Records are reviewed. She has been placed on omeprazole 20 mg daily. Symptoms are not controlled on her present dose. We recommended increasing this to 40 mg twice daily. She will need endoscopy. * ROS:?General/Constitutional:?Change in appetite?denies.?Fatigue?denies.?ENT:?Patient denies?difficulty swallowing.?Respiratory:?Patient denies?shortness of breath.?Cardiovascular:?Patient denies?chest pain.?Gastrointestinal:?Comments?See HPI for details.?Genitourinary:?Difficulty urinating?denies.?Incontinence?denies.?Musculoskeletal:?Patient denies?muscle aches.?Skin:?Patient denies?pruritis.?Neurologic:?Patient denies?low back pain.?Psychiatric:?Patient denies?mental or physical abuse.? * Medical History:?Basal cell carcinoma, Asthma, Reflux disease, Hypertension, Hyperlipidema, Osteopenia, Pneumonia, Fatty liver, Colonoscopy 11/01, tubular adenoma, 7-year follow-up. * Surgical History:?caesarean section , tonsillectomy , hyperparathyroid surgery , Oophorectomy . * Hospitalization/Major Diagno stic Procedure:?Asthma/Parainfluenza exacerbation 10/02, pneumonia 02/02, 05/26/23. * Family History:?Father: dece ased.?Mother: , The patients mother of pancreatic and l iver cancer at age 90..? no known family hx of colon cancer. Mother had liver cancer. * Social History:?Tobacco Use:?Tobacco Use/Smoking?Are you a: nonsmoker.?Drugs/Alcohol:?Alcohol Screen?Points: 1, Interpretation: Negative.?Miscellaneous:?Marital status: . 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 * Medications:?Taking Probioti c 250 MG Capsule as directed Orally , Taking Licorice-Glycine , Taking Eliquis 5 MG Tablet as directed Orally , Taking Metoprolol Succinate 25 MG Capsule ER 24 Hour Sprinkle 1 capsule Orally Once a day , Taking Omeprazole 40 MG Capsule Delayed Release 1 capsule 1/2 to 1 hour before morning meal Orally Once a day , Taking Symbicort 80-4.5 MCG/ACT Aerosol 1 puff as needed Inhalation every 4 hrs , Taking Hair Skin and Nails Formula , Taking Vitamin D3 , Taking CoQ-10 , Taking Zinc , Taking Calcium & Magnesium Carbonates , Taking amLODIPine Besylate 10 MG Tablet 1 tablet Orally Once a day , Taking Montelukast Sodium 10 MG Tablet 1 tablet Orally Once a night , Taking Salem-3 Fish Oil , Taking ZyrTEC Allergy 10 MG Tablet 1 tablet Orally Once a day , Taking Albuterol Sulfate (2.5 MG/3ML) 0.083% Nebulization Solution TAKE 3 ML (2.5 MG TOTAL) BY NEBULIZATION EVERY 6 (SIX) HOURS NEEDED. Inhalation , Discontinued Omeprazole Magnesium 20 MG Tablet Delayed Release 1 tablet 30 minutes before morning meal Orally Once a day , Medication List reviewed and reconciled with the patient * Allergies:?Codeine Phosphate . Objective: * Vitals:?Wt: 172.6 lbs, Ht: 6 3 in, BMI: 30.57 Index, BP: 001/01 mm Hg, Temp: 97.7, Wt-k.29. * Examination: ???General Examination: ?GENERAL APPEARANCE:?in no acute distress.?HEAD:?normocephalic.?EYES:?sclera non-icteric.?ORAL CAVITY:?mucosa moist.?NECK/THYROID:?no lymphadenopathy.?SKIN:?anicteric.?HEART:?S1, S2 normal, no murmurs.?LUNGS:?clear to auscultation bilaterally.?CHEST:?normal shape and expansion.?ABDOMEN:?soft, nontender, nondistended, bowel sounds present, no organomegaly .?EXTREMITIES:?no clubbing, cyanosis, or edema.?PSYCH:?cognitive function intact.? Assessment: * Assessment: 1.?Gastroesophageal reflux d isease, unspecified whether esophagitis present - K21.9 (Primary)???2.?Fatty liver - K76.0???3.?Long-term current use of high risk medication other than anticoagulant - Z79.899???4.?Colon cancer screening - Z12.11??? We discussed her symptoms to day. We discussed gastroesophageal reflux disease. We discussed endoscopy today. This will be arranged. She understand risks and benefits and agrees to proceed. We discussed elevated liver function tests. These have been stable. These will be continued to be monitored. She will continue on omeprazole at 40 mg twice daily. Follow-up will be pending results of her testing.Today's visit was 30 minutes. Plan: * Treatment: * Procedure Codes:?3017F COLOR ECTAL CA SCREEN DOC REV, 1036F TOBACCO NON-USER, G8785 BP SCR NOT PRFRM REC REASON NOS * Preventive Medicine:? ??Counseling:?Care goal follow-up plan:?Above Normal BMI Follow-up?Dietary management education, guidance, and counseling,?BMI management provided?Yes.? ??Urinary Incontinence:?Urinary Incontinence?Assessment:?Present,?Plan of care documented:?Yes,?Type of plan of care:?Bladder training.? ??Screenings:?Fall Risk Screening?Fall Risk Assessment:?No falls in the past year,?Screening:?No falls in the past year,?Assessment:?Not performed, no reason specified,?Plan of Care:?Not documented, no reason specified.? * Follow Up:?1 Year,prn * * Sign off status: Completed true * Provider:?Pako Dickens MD Date:?0 07/21/2024 Generated for Maureen obando/Ina/eTransmitting on:?07/22/2024 12:47 PM EDT History and Physical Notes * HPI (History of Present Illness) Category Sub-Category Detail Notes Category Not es New symptom(s) Vero is a pleasant 73-year-old woman seen today in follow-up of multiple GI problems. Since we saw her last, she had pneumonia. This was thought related to aspiration. She underwent a barium swallow which showed some reflux. She was seen in the emergency department in May. Records are reviewed. She has been placed on omeprazole 20 mg daily. Symptoms are not controlled on her present dose. We recommended increasing this to 40 mg twice daily. She will need endoscopy. Examination Category Sub-Category Detail Notes Category Not es General Examination GENERAL APPEARANCE: in no acute di stress HEAD: normocephalic EYES: sclera non-icteric NECK/THYROID: no lymphadenopathy HEART: S1, S2 normal, no mu rmurs CHEST: normal shape and exp ansion LUNGS: clear to auscultatio n bilaterally ABDOMEN: soft, nontender, non distended, bowel sounds present, no organomegaly SKIN: anicteric EXTREMITIES: no clubbing, cyanosi s, or edema PSYCH: cognitive function i ntact ORAL CAVITY: mucosa moist
--- NOTE | 2024-07-28 12:11 | P.CONAN_ITS ---
Documented by User: Nina Miller NP 07/28/24 15:49 HPI - Anesthesia Eval Consult details Narrative: 73yo F for Upper Endoscopy [facility] admit 05/26/24-06/21/24 73-year-old woman admitted on 05/26/2024 with dyspnea and hypoxia her initial CT chest demonstrated no evidence of pulmonary emboli but chronic bibasilar atelectasis. Hospital course significant for recurrent hypoxic events that appears to be related to recurrent pulmonary aspiration requiring intubation on 06/02 2024, extubated 06/03/2024. While intubating bronchoscopic clearance demonstrated large burden of thick secretions with cultures negative to date. On 06/09/2024 patient has an episode of respiratory distress with refractory hypoxia likely secondary to aspiration requiring transfer to intensive care unit and intubation. Extubated 06/12/2024. Downgraded to the medical floor again on June 14. Patient had modified barium swallow on 06/13 24 which showed transient laryngeal penetration of thin liquids no glottic or subglottic aspiration with moderate persistent cricopharyngeal achalasia. Discussed with Gastroenterology who did not recommend EGD at this time that symptoms may be secondary to reflux and and will treat with PPI. Patient has been able to eat NDD 3 diet recommended by speech. She was treated with Mucomyst, CPT, all cultures have remained negative. She has been off oxygen for 24 hours. She has been treated with IV Zosyn and plan is for discharge with Augmentin for 4 weeks. She did have some episodes of hemoptysis just after her 1st intubation due to undergoing bronchoscopy, she had friable mucosa which cause some bleeding. Her Eliquis was discontinued but will now be resumed. Her H&H has remained stable. She was seen evaluated by Physical therapy and has been able to ambulate on her own therefore plan is to discharge home with physical therapy. Elquis for afib. Follows [facility] Cardiology in [place]. Stable at 06/2024 cardiac (amioderone d/c'd d/t rash) Case reviewed with Dr Price - plan for intubation [facility] Active Problems Active Problems: All Active Problems PAF (paroxysmal atrial fibrillation) (Acute) Past Medical History Medical History Afib Hyperparathyroidism Fatty liver Pneumonia Osteopenia Acid reflux disease Basal cell carcinoma Asthma HLD (hyperlipidemia) HTN (hypertension) Family History Family history of problems with anesthesia: No Surgical History Surgical History H/O parathyroidectomy History of removal of both ovaries H/O section Hx of tonsillectomy H/O colonoscopy History of Problems with Anesthesia: No Social History Social History Household Members: Significant [facility] Do you presently have visiting nurse or other home services: No Alcohol intake: never Patient Tobacco Use Status: Never used Tobacco Second Hand Smoke Exposure: No Advance Directives Date on File: 01/10/24 service: No Meds Allergies Allergy/AdvReac Type Severity Reaction Status Date / Time lisinopril Allergy Severe Difficulty Verified 05/25/24 23:09 Breathing codeine Allergy Intermediate Unconscious Verified 05/25/24 23:09 Home Medications ?Medication ?Instructions ?Recorded ?Confirmed ?Last Taken ?Type amlodipine 10 mg tablet 10 mg PO BEDTIME 10/12/22 05/26/24 05/25/24 History montelukast 10 mg tablet 10 mg PO BEDTIME 10/12/22 05/26/24 07/29/24 History omega 0-ggd-afh-fish oil 1,000 mg 1 cap PO DAILY 10/12/22 05/26/24 07/22/24 History (120 mg-180 mg) capsule (Fish Oil) albuterol sulfate 90 mcg/actuation 2 puff inhalation Q4H PRN Wheezing 10/01/23 05/26/24 01/16/24 History aerosol inhaler budesonide-formoterol HFA 160 2 puff inhalation BID 10/01/23 05/26/24 05/25/24 History mcg-4.5 mcg/actuation aerosol inhaler (Symbicort) cholecalciferol (vitamin D3) 125 125 mcg PO DAILY 10/01/23 05/26/24 05/25/24 History mcg (5,000 unit) tablet (Vitamin D3) cetirizine 10 mg tablet (Zyrtec) 10 mg PO DAILY 01/10/24 05/26/24 05/25/24 Hi story cyclosporine 0.05 % eye drops in a 1 drp ophthalmic (eye) Q12H PRN 10/31/24 03/17/25 03/16/25 History dropperette Dry Eye(S) coenzyme Q10 100 mg capsule 100 mg PO DAILY 05/26/24 05/26/24 05/25/24 History (CoQ-10) metoprolol succinate 25 mg 25 mg PO DAILY 05/26/24 05/26/24 07/29/24 History tablet,extended release 24 hr turmeric 400 mg capsule 400 mg PO DAILY 05/26/24 05/26/24 07/28/24 History Exam Pertinent Lab Results Pertinent Lab Results: Laboratory Tests 06/14/24 06/25/24 04:44 12:13 WBC 11.1 H Hgb 10.0 L Hct 30.8 L Plt Count 209 Sodium 142 Potassium 3.1 L Chloride 107 Carbon Dioxide 23 BUN 7 L Creatinine 0.76 Narrative Narrative: EKG 06/2024 Vent. Rate : 76 BPM Atrial Rate : 76 BPM P-R Int : 154 ms QRS Dur : 78 ms QT Int : 416 ms P-R-T Axes : 13 -2 9 degrees QTcB Int : 468 ms Normal sinus rhythm Minimal voltage criteria for LVH, may be normal variant ( R in aVL ) Nonspecific ST and T wave abnormality Abnormal ECG When compared with ECG of 11-Jun-2024 21:49, Sinus rhythm has replaced Atrial fibrillation Nonspecific T wave abnormality now evident in Anterior leads ECHO 05/2024 Conclusions: - Normal left ventricular size and systolic function. There is mildly increased left ventricular wall thickness. The visually estimated ejection fraction is between 60-65%. There is no evidence of regional wall motion abnormalities. Diastolic function is normal for age. - Normal right ventricular cavity size and systolic function. Assessment and Plan Assessment Anesthesia Assessment: Chart Reviewed Final Anesthetic Review Family History of Problems with Anesthesia: No History of Problems with Anesthesia: No Documented by User: Ethan Gtz MD 07/29/24 11:25 [facility] Past Medical History Medical History Afib Hyperparathyroidism Fatty liver Pneumonia Osteopenia Acid reflux disease Basal cell carcinoma Asthma HLD (hyperlipidemia) HTN (hypertension) Surgical History Surgical History H/O parathyroidectomy History of removal of both ovaries H/O section Hx of tonsillectomy H/O colonoscopy Social History Social History Household Members: Significant [facility] Do you presently have visiting nurse or other home services: No Alcohol intake: never Patient Tobacco Use Status: Never used Tobacco Second Hand Smoke Exposure: No Advance Directives Date on File: 01/10/24 service: No Meds Allergies Allergy/AdvReac Type Severity Reaction Status Date / Time lisinopril Allergy Severe Difficulty Verified 05/25/24 23:09 Breathing codeine Allergy Intermediate Unconscious Verified 05/25/24 23:09 Home Medications ?Medication ?Instructions ?Recorded ?Confirmed ?Last Taken ?Type amlodipine 10 mg tablet 10 mg PO BEDTIME 10/12/22 05/26/24 05/25/24 History montelukast 10 mg tablet 10 mg PO BEDTIME 10/12/22 05/26/24 07/29/24 History omega 1-iei-qfj-fish oil 1,000 mg 1 cap PO DAILY 10/12/22 05/26/24 07/22/24 History (120 mg-180 mg) capsule (Fish Oil) albuterol sulfate 90 mcg/actuation 2 puff inhalation Q4H PRN Wheezing 10/01/23 05/26/24 01/16/24 History aerosol inhaler budesonide-formoterol HFA 160 2 puff inhalation BID 10/01/23 05/26/24 05/25/24 History mcg-4.5 mcg/actuation aerosol inhaler (Symbicort) cholecalciferol (vitamin D3) 125 125 mcg PO DAILY 10/01/23 05/26/24 05/25/24 History mcg (5,000 unit) tablet (Vitamin D3) cetirizine 10 mg tablet (Zyrtec) 10 mg PO DAILY 01/10/24 05/26/24 05/25/24 History cyclosporine 0.05 % eye drops in a 1 drp ophthalmic (eye) Q12H PRN 10/31/24 03/17/25 03/16/25 History dropperette Dry Eye(S) coenzyme Q10 100 mg capsule 100 mg PO DAILY 05/26/24 05/26/24 05/25/24 History (CoQ-10) metoprolol succinate 25 mg 25 mg PO DAILY 05/26/24 05/26/24 07/29/24 History tablet,extended release 24 hr turmeric 400 mg capsule 400 mg PO DAILY 05/26/24 05/26/24 07/28/24 History Exam Airway Mallampati Class: II TM Dist: >3cm Neck ROM: Full Loose/Missing/Broken Teeth: No Heart: rrr Lungs: cta Assessment and Plan Final Anesthetic Review Final Preanesthetic Review: No Changes in Pt Med Stat, Meds/Allgs Chart Reviewed and Consent Obtained/Reviewed Patient Risk: Low Procedure Risk: Low Anesthetic Plan Anesthetic Plan: MAC: Disposition: Standard PACU
[2024-07-29 06:19] VITALS: BMI 31.2
[2024-07-29 08:22] VITALS: BP 144/66; PULSE 83; RESP 20; TEMP 37.1; O2SAT 94; BMI 30.4
[2024-07-29] MEDS: Lactated Ringers 1,000 ML 100 ML IVCONT (08:43)
--- NOTE | 2024-07-29 09:14 | MHC.SHP ---
Pre-Procedural Eval Section A - 24 Hr Update-Section A only Date of Service: 07/29/24 The patient is an INPATIENT: No Changes since office visit: No Cold of Flu in the past 2 weeks, No New Medical Problems, No Changes in Medication and No Patient answered all questions The patient has been examined within 24 hours of the surgical procedure. The History & Physical has been completed within 30 days and I have reviewed it.: Yes Section B - Complete if H&P > 30 days Chief Complaint: Gastro-esophageal reflux disease without esophagit Allergies: Allergies Allergy/AdvReac Type Severity Reaction Status Date / Time lisinopril Allergy Severe Difficulty Verified 05/25/24 23:09 Breathing codeine Allergy Intermediate Unconscious Verified 05/25/24 23:09 Plan I have reviewed the history and physical and performed a pertinent physical examination on my patient. No changes have occurred unless specified. Time Spent With Patient Time: Total time managing care of this patient today ____ minutes.
[2024-07-29 09:42] VITALS: BP 97/57; PULSE 74; RESP 16; TEMP 36.4; O2SAT 91
[2024-07-29 09:57] VITALS: BP 116/67; PULSE 73; RESP 18; TEMP 36.6; O2SAT 94
--- NOTE | 2024-07-29 10:43 | OP_ITS ---
DATE OF SERVICE: 07/29/2024 SURGEON: Pako Dickens MD INDICATIONS: Aspiration and cricopharyngeal achalasia PREOPERATIVE DIAGNOSIS: POSTOPERATIVE DIAGNOSIS: PROCEDURE PERFORMED: Upper endoscopy with balloon dilation and biopsy. ESTIMATED BLOOD LOSS: COMPLICATIONS: ANESTHESIA: MAC ASSISTANTS: SPECIMENS: DESCRIPTION OF PROCEDURE: A history and physical was performed. The risks and benefits of the procedure were explained to the patient. Informed consent was obtained. The patient was placed in the left lateral decubitus position. The Olympus video gastroscope was introduced into the esophagus, stomach, and duodenum. Examination was performed. The scope was removed. She tolerated the procedure well and was returned to the recovery area in stable condition. FINDINGS: Esophagus: The esophagus showed multiple venous lakes. The EG junction was slightly irregular. No definite stricture was noted on careful examination of the upper esophageal sphincter. Stomach: The stomach showed several benign-appearing gastric polyps consistent with fundic gland polyps. Antral biopsies were obtained to evaluate for H pylori. There was some mild gastritis in the antrum. Duodenum: The bulb and 2nd portion were normal. Balloon dilation of the upper esophageal sphincter to 18 mm was performed for 60 seconds with no immediate complications. IMPRESSION: 1. Cricopharyngeal achalasia. 2. Gastritis. RECOMMENDATION: Follow up the biopsy results. MD CHRISTIAN Arango/CATY / [id number] MTDD
== END 2024-07-29 10:30 | disposition home or self-care (01) ==
PROVIDERS: PCP Nurse Practitioner Family; Visit Provider Internal Medicine Gastroenterology
PROC: 0DJ08ZZ Inspection of Upper Intestinal Tract, Via Natural or Artificial Opening Endoscopic (ICD-10-PCS; CPT 43235; principal; 2024-07-29 09:00)
DX: K31.7 Polyp of stomach and duodenum (principal); K22.0 Achalasia of cardia; K29.60 Other gastritis without bleeding; K22.89 Other specified disease of esophagus; K21.9 Gastro-esophageal reflux disease without esophagitis; K76.0 Fatty (change of) liver, not elsewhere classified; I10 Essential (primary) hypertension; E78.5 Hyperlipidemia, unspecified; I48.0 Paroxysmal atrial fibrillation; J45.909 Unspecified asthma, uncomplicated; Z79.01 Long term (current) use of anticoagulants; Z79.899 Other long term (current) drug therapy
CPT/HCPCS: 43249; 43239; 88305; 88342; C1726; J2704